=== PATIENT | female | born 1940 | race Caucasian/White ===

== ENCOUNTER 2016-08-09 13:09 | Emergency (ER) | payer MEDICARE ==
[2016-08-09 13:54] VITALS: TEMP 97.7
[2016-08-09] MEDS ORDERED: HYDROmorphone 1 MG/ML 1 ML SYRINGE IM STA (14:25)
[2016-08-09] MEDS ORDERED: ORPHENADRINE 30 MG/ML 2 ML VIAL IM STA (14:25)
--- NOTE | 2016-08-09 14:34 | ED ---
Back Pain HPI - General Chief Complaint: Back Pain/Injury Stated Complaint: Back Pain Time Seen by Provider: 08/09/16 14:08 Source: patient, RN notes reviewed Limitations: no limitations - History of Present Illness Initial Comments: Patient is a 75-year-old female presenting to the stating that she has chronic thoracic back pain. Patient reports that she woke up at 4 AM today and the pain was significantly worse. She states she's had an MRI done of 2015. The MRI revealed that she has a possible T9 compression fracture. She also has had surgery to correct T8 vertebral plasty and has evidence of anterior thecal sac inferior to T8 and T8 through T9 space. Patient states that there is no numbness or tingling to radiates down her legs. She states that the pain is worse with movement. She denies any saddle anesthesias. Patient denies any fever or chills. She states that she took her at home pain medication which is Tracy however has not helped with the pain. She states that she does follow up with Dr. De Paz and Dr. Daugherty in regards to pain management and further treatment for her back. Patient also denies any recent trauma or falls causing injury to her back. Patient patient reports that she is able to ambulate and was able to ambulate from the wheelchair to the bed today. Patient has a past medical history significant for type 2 diabetes. - Related Data Home Medications Medication Instructions Recorded Confirmed Insulin Aspart Protam & Aspart 20 unit SQ QAM 06/13/14 07/10/16 [NovoLOG MIX 70-30 Flexpen] Pioglitazone [Actos] 30 mg PO QAM 06/13/14 07/10/16 glipiZIDE XL [Glucotrol XL] 10 mg PO QAM 06/13/14 07/10/16 Ferrous Sulfate [Feosol] 325 mg PO DAILY 06/18/16 07/10/16 Metoprolol Tartrate [Lopressor] 50 mg PO BID 06/18/16 07/10/16 Cyclobenzaprine [Flexeril] 10 mg PO TID 07/10/16 07/10/16 Losartan/Hydrochlorothiazide 1 tab PO DAILY 07/10/16 07/10/16 [Hyzaar 100-25 Tablet] Torsemide [Demadex] 20 mg PO DAILY 07/10/16 07/10/16 Previous Rx's Medication Instructions Recorded Warfarin [Coumadin] 5 mg PO DAILY #0 07/11/16 traMADol HCL [Ultram] 50 mg PO Q6HR PRN #20 tab 07/11/16 Cyclobenzaprine [Flexeril] 10 mg PO TID #20 tab 08/09/16 HYDROcodone/APAP 10-325MG [Tracy 1 tab PO Q6H PRN #15 tab 08/09/16 10-325] Allergies Allergy/AdvReac Type Severity Reaction Status Date / Time tetracycline Allergy Unknown Verified 08/09/16 13:54 fentanyl AdvReac "SKIN Verified 08/09/16 13:54 CRAWLS", HYPER Review of Systems ROS Statement: Those systems with pertinent positive or pertinent negative responses have been documented in the HPI. ROS Other: All systems not noted in ROS Statement are negative. Past Medical History Past Medical History: Atrial Flutter, Chest Pain / Angina, Diabetes Mellitus, Hypertension Additional Past Medical History / Comment(s): POST OP INFECTION AFTER BACK SURGERY. UPPER BRIDGE, UTI COMPLETE ABX, CHRONIc BACK PAIN, FROM FX. PERIPHERAL LEG EDEMA.T8 FX History of Any Multi-Drug Resistant Organisms: None Reported Past Surgical History: Back Surgery, Cholecystectomy, Orthopedic Surgery Additional Past Surgical History / Comment(s): LUMBAR SURGERY, 2014. FX NOSE REPAIR. BILATERAL CATARACT SURGERY. R WRIST CARPAL TUNNEL SURGERY, kyphoplasty T8 ON 06/26/16. Past Anesthesia/Blood Transfusion Reactions: No Reported Reaction Additional Past Anesthesia/Blood Transfusion Reaction / Comment(s): NEVER HAD A BLOOD TRANSFUSION. Past Psychological History: No Psychological Hx Reported Additional Psychological History / Comment(s): PT LIVES ALONE IN A ONE FLOOR [place]. SHE IS INDEPENDENT. SHE DRIVES A CAR. Smoking Status: Never smoker Past Alcohol Use History: None Reported Past Drug Use History: None Reported - Past Family History Father Family Medical History: Myocardial Infarction ([place]) Additional Family Medical History / Comment(s): FATHER AT AGE 52 OF AN [place] Mother Additional Family Medical History / Comment(s): MOTHER AT AGE 89 OF CELEBREX PROBLEM. General Exam - General Exam Comments Initial Comments: Patient is a 75-year-old female in no apparent distress. She is laying in the bed. Limitations: no limitations General appearance: alert, in no apparent distress Head exam: Present: atraumatic, normocephalic, normal inspection Eye exam: Present: normal appearance, PERRL, EOMI. Absent: scleral icterus, conjunctival injection, periorbital swelling ENT exam: Present: normal exam, mucous membranes moist Neck exam: Present: normal inspection. Absent: tenderness, meningismus, lymphadenopathy Respiratory exam: Present: normal lung sounds bilaterally. Absent: respiratory distress, wheezes, rales, rhonchi, stridor Cardiovascular Exam: Present: regular rate, normal rhythm, normal heart sounds. Absent: systolic murmur, diastolic murmur, rubs, gallop, clicks GI/Abdominal exam: Present: soft, normal bowel sounds. Absent: distended, tenderness, guarding, rebound, rigid Extremities exam: Present: normal inspection, full ROM, normal capillary refill. Absent: tenderness, pedal edema, joint swelling, calf tenderness Back exam: Present: normal inspection. Absent: full ROM (Patient reports limited range of motion due to pain over her thoracic spine.), tenderness ( Patient denies a specific tenderness to palpation.) Neurological exam: Present: alert, oriented X3, CN II-XII intact Psychiatric exam: Present: normal affect, normal mood Skin exam: Present: warm, dry, intact, normal color. Absent: rash Course Vital Signs 08/09/16 08/09/16 13:52 15:20 Temperature 97.7 F Pulse Rate 64 63 Respiratory 20 18 Rate Blood Pressure 153/64 146/71 O2 Sat by Pulse 97 98 Oximetry Medical Decision Making - Medical Decision Making Given the patient recently had an MRI of the thoracic spine [place] no other imaging studies today. She denies any acute trauma that could cause changes in her MRI studies. She reports that she does have chronic back pain and seemed to be exacerbated today at 4 AM. She reports she took her at home pain medications. Patient was given IM Dilaudid and Norflex. She reports a significant reduction in her pain at this time. She reports that she was able to drive home. Patient was given a half hour waiting time until she was allowed to drive home. I instructed the patient to increase her pain medication to 10 mg every 4 hours as needed. Patient also be given a prescription for Flexeril. Patient will be instructed to follow-up with Dr. De Paz in regards to pain. - Radiology Data Radiology results: report reviewed MRI of the thoracic spine on 12:30 reveals into her old vertebral plasty T level with persistent effacement of the anterior thecal sac inferior T8 and T8- T9 disc space level noted. There is developing mild compression type fracture at T9 level suspected. 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 There is new abnormal diffuse low T1 and heterogeneous T2 signal in the adjacent T9 vertebral or some for developing compression fracture. New mild height loss is felt to be present. There is small residual disc herniation at T8/T9 level facing the anterior thecal sac and sagittal images #6. Some scattered hemangiomas noted on posterior T6 vertebra and posterior T12 vertebra. Review ask seal images redemonstrates tiny central disc herniation minimally facing the anterior thecal sac. Axial images at T8 level showed artifact from vertebral press E. There is mild effacement of the anterior thecal sac at T12/L1 level due to broad-based central disc protrusion seen on axial image foreign sagittal images #6. His MRI was read by Dr. De Paz. The findings were forwarded to Dr. Baldev Parmar. Disposition Clinical Impression: Chronic back pain Disposition: HOME SELF-CARE Condition: Good Instructions: Chronic Back Pain (ED) Additional Instructions: Increased pain medication to the 2 pills every 4 hours as needed. Patient also instructed to use muscle relaxer medication as directed. Follow-up with primary care physician in one to 2 days. Follow-up with pain management orthopedic physician as directed. Return to the [facility] if any alarming signs or symptoms occur. Prescriptions: Cyclobenzaprine [Flexeril] 10 mg PO TID #20 tab HYDROcodone/APAP 10-325MG [Tracy 10-325] 1 tab PO Q6H PRN #15 tab PRN Reason: Pain Referrals: Rox Parmar DO [Primary Care Provider] - 1-2 days Time of Disposition: 14:58
[2016-08-09 15:20] VITALS: BP 146/71; PULSE 63; RESP 18
== END 2016-08-09 15:20 | disposition home or self-care (01) ==
LOC: EC 13:09
DX: G89.29 Other chronic pain (principal); M54.9 Dorsalgia, unspecified; I48.92 Unspecified atrial flutter; I10 Essential (primary) hypertension; E11.8 Type 2 diabetes mellitus with unspecified complications; Z79.84 Long term (current) use of oral hypoglycemic drugs; Z79.899 Other long term (current) drug therapy; Z79.4 Long term (current) use of insulin; Z79.01 Long term (current) use of anticoagulants; Z88.1 Allergy status to other antibiotic agents
CPT/HCPCS: 99282; 96372; J2360; J1170

== ENCOUNTER → 2016-08-13 | Outpatient (CLI) | payer MEDICARE ==
[2016-08-13 12:25] LABS: Basophils % (A) 1 %; CH 30.6; CHCM 30.9; Eosinophils # (A) 0.1 k/uL (0-0.7); Eosinophils % (A) 2 %; HDW 2.79; HGB 12.2 gm/dL (11.4-16.0); Hypochromasia Moderate; Luc # (Auto) 0.09; Luc % (Auto) 2; Lymphocytes # (A) 0.7 k/uL (1.0-4.8); Lymphocytes % (A) 12 %; MCH 30.5 pg (25.0-35.0); MCHC 30.6 g/dL (31.0-37.0); MCV 99.9 fL (80.0-100.0); Macrocytosis Slight; Monocytes # (A) 0.3 k/uL (0-1.0); Monocytes % (A) 5 %; Neutrophils # (A) 4.8 k/uL (1.3-7.7); Neutrophils % (A) 79 %; RBC 4.01 m/uL (3.80-5.40); RDW 14.6 % (11.5-15.5); WBC 6.1 k/uL (3.8-10.6); WBC (Perox) 6.31
[2016-08-13 12:27] LABS: Appearance,Urine Clear (Clear); Bilirubin,Urine Negative (Negative); Calcium Oxalate Crystals,Urine Rare /hpf; Glucose,Urine (UA) Negative (Negative); Ketones,Urine Negative (Negative); Leukocyte Esterase,Urine Small (Negative); Mucus,Urine Few /hpf; Nitrite,Urine Negative (Negative); PH, Urine 5.5 (5.0-8.0); Particle Count 10686; Protein,Urine 2+ (Negative); RBC,Urine 9 /hpf (0-5); Specific Gravity,Urine 1.035 (1.001-1.035); Squamous Epithelial Cell,Urine 4 /hpf (0-4); UA Billing (MACRO vs. MICRO) MICRO; WBC,Urine 4 /hpf (0-5)
[2016-08-13 12:31] LABS: Partial Thromboplastin Time 38.5 sec (22.0-30.0); Prothrombin Time 46.8 sec (9.0-12.0)
[2016-08-13 12:37] LABS: INR 4.7 (<1.1)
[2016-08-13 12:49] LABS: ALT 32 U/L (9-52); AST 21 U/L (14-36); Alkaline Phosphatase 118 U/L (38-126); Anion Gap 13 mmol/L; Blood Urea Nitrogen 12 mg/dL (7-17); Calcium 9.7 mg/dL (8.4-10.2); Carbon Dioxide 24 mmol/L (22-30); Chloride 110 mmol/L (98-107); Glucose 61 mg/dL (74-99); Non-African American GFR(MDRD) >60 (>60 ml/min/1.73 sqM); Potassium 4.4 mmol/L (3.5-5.1); Sodium 147 mmol/L (137-145); Total Bilirubin 0.7 mg/dL (0.2-1.3); Total Protein 6.9 g/dL (6.3-8.2)
== END | disposition home or self-care (01) ==
LOC: LABPAT 10:50
PROVIDERS: ATTEND Orthopaedic Surgery Orthopaedic Surgery of the Spine
DX: Z01.812 Encounter for preprocedural laboratory examination (principal)
CPT/HCPCS: 80053; 81001; 85025; 85610; 85730; 86850; 86900; 86901

== ENCOUNTER 2016-08-14 04:26 | Observation (INO) | payer MEDICARE ==
[2016-08-14] MEDS ORDERED: SODIUM CHLORIDE 0.9% 1,000 ML IV STA (04:39)
[2016-08-14] MEDS ORDERED: ORPHENADRINE 30 MG/ML 2 ML VIAL IVP STA (04:40)
[2016-08-14] MEDS ORDERED: HYDROmorphone 1 MG/ML 1 ML SYRINGE IVP STA (04:40)
--- NOTE | 2016-08-14 04:43 | ED ---
General Adult HPI - General Chief complaint: Back Pain/Injury Stated complaint: Back pain Time Seen by Provider: 08/14/16 04:31 Source: patient, RN notes reviewed Mode of arrival: ambulatory Limitations: physical limitation - History of Present Illness Initial comments: Patient is a pleasant 75-year-old female presenting to the emergency Department with back discomfort. Onset of symptoms was over a month ago. Patient has chronic pain. Patient was supposed to have surgery today however blood work yesterday revealed her INR was too high. Patient was recently in the emergency department and did get relief with pain medications. Patient also states there is left-sided chest discomfort. Patient went to resist to her back pain. Patient states this is associated with her back pain and worse when her back gets worse. Patient has had an MRI done with compression fracture. No dyspnea. No leg pain. - Related Data Home Medications Medication Instructions Recorded Confirmed Insulin Aspart Protam & Aspart 20 unit SQ QAM 06/13/14 07/10/16 [NovoLOG MIX 70-30 Flexpen] Pioglitazone [Actos] 30 mg PO QAM 06/13/14 07/10/16 glipiZIDE XL [Glucotrol XL] 10 mg PO QAM 06/13/14 07/10/16 Ferrous Sulfate [Feosol] 325 mg PO DAILY 06/18/16 07/10/16 Metoprolol Tartrate [Lopressor] 50 mg PO BID 06/18/16 07/10/16 Cyclobenzaprine [Flexeril] 10 mg PO TID 07/10/16 07/10/16 Losartan/Hydrochlorothiazide 1 tab PO DAILY 07/10/16 07/10/16 [Hyzaar 100-25 Tablet] Torsemide [Demadex] 20 mg PO DAILY 07/10/16 07/10/16 Previous Rx's Medication Instructions Recorded Warfarin [Coumadin] 5 mg PO DAILY #0 07/11/16 traMADol HCL [Ultram] 50 mg PO Q6HR PRN #20 tab 07/11/16 Cyclobenzaprine [Flexeril] 10 mg PO TID #20 tab 08/09/16 HYDROcodone/APAP 10-325MG [Gary 1 tab PO Q6H PRN #15 tab 08/09/16 10-325] Allergies Allergy/AdvReac Type Severity Reaction Status Date / Time tetracycline Allergy Unknown Verified 08/09/16 13:54 fentanyl AdvReac "SKIN Verified 08/09/16 13:54 CRAWLS", HYPER Review of Systems ROS Statement: Those systems with pertinent positive or pertinent negative responses have been documented in the HPI. ROS Other: All systems not noted in ROS Statement are negative. Constitutional: Denies: fever Eyes: Denies: eye pain ENT: Denies: ear pain Respiratory: Denies: dyspnea Cardiovascular: Reports: chest pain Endocrine: Denies: fatigue Gastrointestinal: Denies: abdominal pain Genitourinary: Denies: dysuria Musculoskeletal: Reports: back pain Skin: Denies: rash Neurological: Denies: weakness Past Medical History Past Medical History: Atrial Flutter, Chest Pain / Angina, Diabetes Mellitus, Hypertension Additional Past Medical History / Comment(s): POST OP INFECTION AFTER BACK SURGERY. UPPER BRIDGE, UTI COMPLETE ABX, CHRONIc BACK PAIN, FROM FX. PERIPHERAL LEG EDEMA.T8 FX History of Any Multi-Drug Resistant Organisms: None Reported Past Surgical History: Back Surgery, Cholecystectomy, Orthopedic Surgery Additional Past Surgical History / Comment(s): LUMBAR SURGERY, 2015. FX NOSE REPAIR. BILATERAL CATARACT SURGERY. R WRIST CARPAL TUNNEL SURGERY, kyphoplasty T8 ON 06/26/16. Past Anesthesia/Blood Transfusion Reactions: No Reported Reaction Additional Past Anesthesia/Blood Transfusion Reaction / Comment(s): NEVER HAD A BLOOD TRANSFUSION. Past Psychological History: No Psychological Hx Reported Additional Psychological History / Comment(s): PT LIVES ALONE IN A [place] FLOOR [place]. SHE IS INDEPENDENT. SHE DRIVES A CAR. Smoking Status: Never smoker Past Alcohol Use History: None Reported Past Drug Use History: None Reported - Past Family History Father Family Medical History: Myocardial Infarction ([place]) Additional Family Medical History / Comment(s): FATHER AT AGE 52 OF AN [place] Mother Additional Family Medical History / Comment(s): MOTHER AT AGE 89 OF CELEBREX PROBLEM. General Exam Limitations: physical limitation General appearance: alert, other (Patient does have spasms and appears uncomfortable) Head exam: Present: atraumatic Eye exam: Present: normal appearance, PERRL ENT exam: Present: normal oropharynx Neck exam: Present: normal inspection Respiratory exam: Present: normal lung sounds bilaterally. Absent: chest wall tenderness Cardiovascular Exam: Present: regular rate, normal rhythm GI/Abdominal exam: Present: soft. Absent: tenderness Extremities exam: Absent: calf tenderness Back exam: Present: tenderness (Mild tenderness in the T8- T9 region) Neurological exam: Present: alert. Absent: motor sensory deficit Psychiatric exam: Present: normal affect, normal mood Skin exam: Absent: rash Course Vital Signs 08/14/16 04:33 Temperature 98.1 F Pulse Rate 81 Respiratory 20 Rate Blood Pressure 198/93 O2 Sat by Pulse 97 Oximetry EKG Findings - EKG Comments: EKG Findings:: Normal sinus rhythm 71. NH 174. QRS 86. QT 436. QTc 473. Normal axis. Normal QRS. Normal ST-T. Medical Decision Making - Medical Decision Making Patient reexamined and improved. Patient resting comfortably in bed. Patient states she does not feel comfortable going home and wants her back taking care of. Case discussed with practitioner reading coach, who will admit for Dr. Dietrich, covering for Dr. Holt. Dr. De Paz will be placed on consult. - Lab Data Result diagrams: 08/14/16 04:35 08/14/16 04:35 Lab Results 08/14/16 08/14/16 08/14/16 Range/Units 04:35 04:35 04:35 WBC 6.7 (3.8-10.6) k/uL RBC 4.03 (3.80-5.40) m/uL Hgb 12.3 (11.4-16.0) gm/dL Hct 39.1 (34.0-46.0) % MCV 97.2 (80.0-100.0) fL MCH 30.4 (25.0-35.0) pg MCHC 31.3 (31.0-37.0) g/dL RDW 14.3 (11.5-15.5) % Plt Count 249 (150-450) k/uL Neutrophils % 72 % Lymphocytes % 17 % Monocytes % 6 % Eosinophils % 3 % Basophils % 0 % Neutrophils # 4.8 (1.3-7.7) k/uL Lymphocytes # 1.2 (1.0-4.8) k/uL Monocytes # 0.4 (0-1.0) k/uL Eosinophils # 0.2 (0-0.7) k/uL Basophils # 0.0 (0-0.2) k/uL Hypochromasia Slight PT (9.0-12.0) sec INR (<1.1) APTT (22.0-30.0) sec Sodium 147 H (137-145) mmol/L Potassium 4.2 (3.5-5.1) mmol/L Chloride 111 H (98-107) mmol/L Carbon Dioxide 22 (22-30) mmol/L Anion Gap 14 mmol/L BUN 13 (7-17) mg/dL Creatinine 0.91 (0.52-1.04) mg/dL Est GFR (MDRD) Af Amer >60 (>60 ml/min/1.73 sqM) Est GFR (MDRD) Non-Af >60 (>60 ml/min/1.73 sqM) Glucose 124 H (74-99) mg/dL Calcium 9.7 (8.4-10.2) mg/dL Magnesium 1.8 (1.6-2.3) mg/dL Total Bilirubin 0.9 (0.2-1.3) mg/dL AST 19 (14-36) U/L ALT 28 (9-52) U/L Alkaline Phosphatase 131 H (38-126) U/L Total Creatine Kinase 40 (30-135) U/L CK-MB (CK-2) 0.3 (0.0-2.4) ng/mL CK-MB (CK-2) Rel Index 0.8 Troponin I 0.012 (0.000-0.034) ng/mL Total Protein 7.4 (6.3-8.2) g/dL Albumin 4.4 (3.5-5.0) g/dL 08/14/16 Range/Units 04:35 WBC (3.8-10.6) k/uL RBC (3.80-5.40) m/uL Hgb (11.4-16.0) gm/dL Hct (34.0-46.0) % MCV (80.0-100.0) fL MCH (25.0-35.0) pg MCHC (31.0-37.0) g/dL RDW (11.5-15.5) % Plt Count (150-450) k/uL Neutrophils % % Lymphocytes % % Monocytes % % Eosinophils % % Basophils % % Neutrophils # (1.3-7.7) k/uL Lymphocytes # (1.0-4.8) k/uL Monocytes # (0-1.0) k/uL Eosinophils # (0-0.7) k/uL Basophils # (0-0.2) k/uL Hypochromasia PT 30.9 H (9.0-12.0) sec INR 3.2 (<1.1) APTT 35.1 H (22.0-30.0) sec Sodium (137-145) mmol/L Potassium (3.5-5.1) mmol/L Chloride (98-107) mmol/L Carbon Dioxide (22-30) mmol/L Anion Gap mmol/L BUN (7-17) mg/dL Creatinine (0.52-1.04) mg/dL Est GFR (MDRD) Af Amer (>60 ml/min/1.73 sqM) Est GFR (MDRD) Non-Af (>60 ml/min/1.73 sqM) Glucose (74-99) mg/dL Calcium (8.4-10.2) mg/dL Magnesium (1.6-2.3) mg/dL Total Bilirubin (0.2-1.3) mg/dL AST (14-36) U/L ALT (9-52) U/L Alkaline Phosphatase (38-126) U/L Total Creatine Kinase (30-135) U/L CK-MB (CK-2) (0.0-2.4) ng/mL CK-MB (CK-2) Rel Index Troponin I (0.000-0.034) ng/mL Total Protein (6.3-8.2) g/dL Albumin (3.5-5.0) g/dL - Radiology Data Radiology results: image reviewed (Chest x-ray shows no acute process) Disposition Clinical Impression: Chest pain, Severe back pain Disposition: ADMITTED IP TO THIS HOSP
[2016-08-14 04:48] LABS: Basophils % (A) 0 %; CH 30.4; CHCM 31.5; Eosinophils # (A) 0.2 k/uL (0-0.7); Eosinophils % (A) 3 %; HCT 39.1 % (34.0-46.0); HDW 2.76; HGB 12.3 gm/dL (11.4-16.0); Hypochromasia Slight; Luc # (Auto) 0.14; Luc % (Auto) 2; Lymphocytes # (A) 1.2 k/uL (1.0-4.8); Lymphocytes % (A) 17 %; MCH 30.4 pg (25.0-35.0); MCHC 31.3 g/dL (31.0-37.0); MCV 97.2 fL (80.0-100.0); Mean Platelet Volume 7.1; Monocytes # (A) 0.4 k/uL (0-1.0); Monocytes % (A) 6 %; Neutrophils # (A) 4.8 k/uL (1.3-7.7); Neutrophils % (A) 72 %; RBC 4.03 m/uL (3.80-5.40); RDW 14.3 % (11.5-15.5); WBC 6.7 k/uL (3.8-10.6)
[2016-08-14 04:58] LABS: INR 3.2 (<1.1); Partial Thromboplastin Time 35.1 sec (22.0-30.0); Prothrombin Time 30.9 sec (9.0-12.0)
[2016-08-14 05:10] LABS: ALT 28 U/L (9-52); AST 19 U/L (14-36); Alkaline Phosphatase 131 U/L (38-126); Anion Gap 14 mmol/L; Blood Urea Nitrogen 13 mg/dL (7-17); Calcium 9.7 mg/dL (8.4-10.2); Carbon Dioxide 22 mmol/L (22-30); Chloride 111 mmol/L (98-107); Glucose 124 mg/dL (74-99); Magnesium 1.8 mg/dL (1.6-2.3); Non-African American GFR(MDRD) >60 (>60 ml/min/1.73 sqM); Potassium 4.2 mmol/L (3.5-5.1); Sodium 147 mmol/L (137-145); Total Bilirubin 0.9 mg/dL (0.2-1.3); Total Protein 7.4 g/dL (6.3-8.2)
[2016-08-14 05:20] LABS: Creatine Kinase MB 0.3 ng/mL (0.0-2.4); Troponin I 0.012 ng/mL (0.000-0.034)
--- NOTE | 2016-08-14 05:24 | XR ---
EXAMINATION TYPE: XR chest 1V portable DATE OF EXAM: 08/14/2016 5:10 AM COMPARISON: 06/21/2016 HISTORY: Chest pain and muscle spasms TECHNIQUE: Single frontal view of the chest is obtained. FINDINGS: There is suggestion of chronic mild interstitial lung changes bilaterally. There is no focal pneumonia, pleural effusion, or pneumothorax seen. There is mild cardiomegaly.. T he osseous structures are intact. IMPRESSION: 1. Chronic lung changes are suggested. 2. No focal pneumonia.
[2016-08-14] MEDS ORDERED: NITROGLYCERIN SL TABS 0.4 MG TAB SUBLINGUAL PRN (05:29)
--- NOTE | 2016-08-14 08:17 | P.CRDCN ---
History of Present Illness Consult date: 08/14/16 Chief complaint: Chest pain/back pain History of present illness: This is a pleasant 75-year-old female patient with a past medical history significant for paroxysmal atrial fibrillation, diabetes, and hypertension, presented to the hospital complaining of back pain. The patient was a scheduled to undergo back surgery yesterday but her INR was supra therapeutic and the surgery was canceled. We get involved in her case because she was describing atypical chest discomfort in addition to the back discomfort. But she states clearly that her discomfort is coming from the back. On physical examination she has reproducible chest discomfort. The EKG showed sinus rhythm without significant ST or T-wave abnormalities. We have only one set of cardiac enzymes came in to be unremarkable. The patient symptoms are very atypical and she has reproducible chest pain. I will wait for the second set of cardiac enzymes. Past Medical History Past Medical History: Atrial Flutter, Chest Pain / Angina, Diabetes Mellitus, Hypertension Additional Past Medical History / Comment(s): POST OP INFECTION AFTER BACK SURGERY. UPPER BRIDGE, UTI COMPLETE ABX, CHRONIc BACK PAIN, FROM FX. PERIPHERAL LEG EDEMA.T8 FX History of Any Multi-Drug Resistant Organisms: None Reported Past Surgical History: Back Surgery, Cholecystectomy, Orthopedic Surgery Additional Past Surgical History / Comment(s): LUMBAR SURGERY, 2014. FX NOSE REPAIR. BILATERAL CATARACT SURGERY. R WRIST CARPAL TUNNEL SURGERY, kyphoplasty T8 ON 06/26/16. Past Anesthesia/Blood Transfusion Reactions: No Reported Reaction Additional Past Anesthesia/Blood Transfusion Reaction / Comment(s): NEVER HAD A BLOOD TRANSFUSION. Past Psychological History: No Psychological Hx Reported Additional Psychological History / Comment(s): PT LIVES ALONE IN A [place] FLOOR [place]. SHE IS INDEPENDENT. SHE DRIVES A CAR. Smoking Status: Never smoker Past Alcohol Use History: None Reported Past Drug Use History: None Reported - Past Family History Father Family Medical History: Myocardial Infarction ([place]) Additional Family Medical History / Comment(s): FATHER AT AGE 52 OF AN [place] Mother Additional Family Medical History / Comment(s): MOTHER AT AGE 89 OF CELEBREX PROBLEM. Medications and Allergies Home Medications Medication Instructions Recorded Confirmed Type Insulin Aspart Protam & Aspart 20 unit SQ QAM 06/13/14 08/14/16 History [NovoLOG MIX 70-30 Flexpen] Pioglitazone [Actos] 30 mg PO QAM 06/13/14 08/14/16 History glipiZIDE XL [Glucotrol XL] 10 mg PO QAM 06/13/14 08/14/16 History Ferrous Sulfate [Feosol] 325 mg PO DAILY 06/18/16 07/10/16 History Metoprolol Tartrate [Lopressor] 50 mg PO BID 06/18/16 08/14/16 History Cyclobenzaprine [Flexeril] 10 mg PO TID 07/10/16 07/10/16 History Losartan/Hydrochlorothiazide 1 tab PO DAILY 07/10/16 08/14/16 History [Hyzaar 100-25 Tablet] Torsemide [Demadex] 20 mg PO DAILY 07/10/16 08/14/16 History Allergies Allergy/AdvReac Type Severity Reaction Status Date / Time tetracycline Allergy Unknown Verified 08/09/16 13:54 fentanyl AdvReac "SKIN Verified 08/09/16 13:54 CRAWLS", HYPER Physical Exam Vitals: Vital Signs Temp Pulse Pulse Resp BP BP Pulse Ox 08/14/16 07:44 98.1 F 77 16 147/60 96 08/14/16 06:41 70 16 08/14/16 06:36 98.1 F 75 16 166/68 98 08/14/16 06:11 16 158/79 97 - Constitutional General appearance: no acute distress - Respiratory Respiratory: bilateral: CTA - Cardiovascular Rhythm: regular Heart sounds: normal: S1, S2 Results 08/14/16 04:35 08/14/16 04:35 Current Medications Generic Name Dose Route Start Last Admin Trade Name Freq PRN Reason Stop Dose Admin Hydromorphone HCl 1 mg 08/14/16 05:30 Dilaudid IVP Q4HR PRN Pain Sodium Chloride 1,000 mls @ 75 mls/hr 08/14/16 04:39 08/14/16 04:50 Saline 0.9% IV 08/14/16 17:58 75 mls/hr .[id number] STA Administration Nitroglycerin 0.4 mg 08/14/16 05:29 Nitrostat SUBLINGUAL Q5M PRN Chest Pain Sodium Chloride 10 ml 08/14/16 09:00 Saline Flush IV BID YOSSI Assessment and Plan Plan: Assessment #1 atypical and reproducible chest pain #2 chronic back pain #3 paroxysmal H of fibrillation #4 hypertension Plan #1 the patient symptoms are atypical #2 we'll wait for the serial cardiac enzymes #3 follow-up with the patient
[2016-08-14] MEDS: HYDROmorphone 1 MG/ML 1 ML SYRINGE IVP PRN ×3 (08:34→19:30)
[2016-08-14 08:42] LABS: Glucose,Whole Blood 117 mg/dL (75-99)
[2016-08-14] MEDS: HYDROcodone/APAP 10-325MG 1 EACH TAB PO PRN ×3 (10:06→23:24)
--- NOTE | 2016-08-14 10:28 | P.CNOR ---
<Silver Calvillo - Last Filed: 08/14/16 10:09> History of Present Illness - [facility] Consult date: 08/14/16 Requesting physician: Jigar Nieto Consult reason: fracture (Acute T9 compression fracture), back pain (Thoracic back pain) History of present illness: Patient is a very pleasant well known 75-year-old female who is seen and examined at the bedside for further evaluation for significant ongoing thoracic back pain. Patient is seen and examined at the bedside by myself and Dr. Rex De Paz. She's was recently seen in our office on 08/12/2016 for her thoracic back pain. She is known to have an acute T9 compression fracture. Previously she had a T8 compression fracture and underwent a T8 kyphoplasty with biopsy. Upon presentation further examination in our office 08/12/2016, we had scheduled for her to undergo a T9 kyphoplasty with biopsy today, 08/14/2016. Yesterday her INR was 4.7 and we had to cancel her scheduled surgical intervention. Patient was unable to tolerate her pain at home and presented to the emergency department approximately 4:30 AM today, 08/14/2016. Patient states she continues to have significant sharp shooting pains in her mid thoracic spine. She is unable to perform regular activities of daily living without significant exacerbation of pain. She states she has difficulty reaching for objects, sitting, standing, ambulating, and eating due to her pain. Her pain wakes her up at night. She was unable to control her pain with oral medication so she presented to the emergency department. She is not currently experiencing any significant pain in the lower extremities bilaterally. She is not currently complaining of lower extremity weakness. Previously we tried bracing for her compression fractures but she was unable to tolerate the brace and was not receiving any relief of her symptoms while wearing the brace. Outpatient, she has been taking [place] 10 mg/325 mg and Flexeril 10 mg without significant relief of her symptoms. She states she cannot continue with her current current pain and would like to undergo a kyphoplasty as soon as possible. At presentation to the emergency department she states she was also experiencing significant chest pain that took her breath away. He states she had difficulty breathing due to her pain. She has been seen and examined by Dr. Carrillo in cardiology. He states she has atypical and reproducible chest pain. She is currently waiting for serial cardiac enzymes lab results and will follow up accordingly. She does have a past medical history including atrial fibrillation, diabetes, and hypertension. Past Medical History Past Medical History: Atrial Flutter, Chest Pain / Angina, Diabetes Mellitus, Hypertension Additional Past Medical History / Comment(s): IDDM type II, CHRONIc BACK PAIN, T8 compression fx with kyphoplasty, UTIs, chronic lower leg bilateral EDEMA, lumbar sx with post op infection, DJD. History of Any Multi-Drug Resistant Organisms: None Reported Past Surgical History: Back Surgery, Cholecystectomy, Orthopedic Surgery Additional Past Surgical History / Comment(s): LUMBAR SURGERY, 2015. FX NOSE REPAIR. BILATERAL CATARACT SURGERY. R WRIST CARPAL TUNNEL SURGERY, kyphoplasty T8 ON 06/26/16. Past Anesthesia/Blood Transfusion Reactions: No Reported Reaction Additional Past Anesthesia/Blood Transfusion Reaction / Comm: NEVER HAD A BLOOD TRANSFUSION. Past Psychological History: No Psychological Hx Reported Additional Psychological History / Comment(s): PT LIVES ALONE IN A [place] FLOOR [place]. SHE IS INDEPENDENT. SHE DRIVES A CAR. Smoking Status: Never smoker Past Alcohol Use History: None Reported Past Drug Use History: None Reported - Past Family History Father Family Medical History: Myocardial Infarction ([place]) Additional Family Medical History / Comment(s): FATHER AT AGE 52 OF AN [place] Mother Additional Family Medical History / Comment(s): MOTHER AT AGE 89 OF CELEBREX PROBLEM. Medications and Allergies Home Medications Medication Instructions Recorded Confirmed Type Insulin Aspart Protam & Aspart 20 unit SQ QAM 06/13/14 08/14/16 History [NovoLOG MIX 70-30 Flexpen] Pioglitazone [Actos] 30 mg PO QAM 06/13/14 08/14/16 History glipiZIDE XL [Glucotrol XL] 10 mg PO QAM 06/13/14 08/14/16 History Ferrous Sulfate [Feosol] 325 mg PO DAILY 06/18/16 08/14/16 History Metoprolol Tartrate [Lopressor] 50 mg PO BID 06/18/16 08/14/16 History Cyclobenzaprine [Flexeril] 10 mg PO TID 07/10/16 08/14/16 History Losartan/Hydrochlorothiazide 1 tab PO DAILY 07/10/16 08/14/16 History [Hyzaar 100-25 Tablet] Torsemide [Demadex] 20 mg PO DAILY 07/10/16 08/14/16 History Allergies Allergy/AdvReac Type Severity Reaction Status Date / Time tetracycline Allergy Unknown Verified 08/09/16 13:54 fentanyl AdvReac "SKIN Verified 08/09/16 13:54 CRAWLS", HYPER Physical Examination Physical exam: Patient is awake, alert, and oriented 3 Vital signs stable Good chest excursion with deep inspiration and expiration Abdomen soft nontender Examination of thoracolumbar is not performed as patient has significant exacerbation of thoracic back pain with any movement of the thoracolumbar spine Patient is unable to turn over in bed due to thoracic back pain Dorsiflexion, plantarflexion, and extensor hallucis longus positive sustained bilaterally Lower extremity strength 5/5 bilaterally Patient is able to move legs independently without significant difficulty bilaterally No signs or symptoms of DVT; no calf pain; calves soft to palpation No pain with internal and external rotation of the hips bilaterally Neurovascularly intact Results - Labs Labs: Abnormal Lab Results - Last 24 Hours (Table) 08/14/16 Range/Units 08:39 POC Glucose (mg/dL) 117 H (75-99) mg/dL Result Diagrams: 08/14/16 04:35 08/14/16 04:35 Assessment and Plan (1) Acute thoracic back pain Status: Acute (2) Wedge compression fracture of T9 vertebra Status: Acute (3) Hx of kyphoplasty Status: Acute (4) Atypical chest pain Status: Acute (5) History of atrial fibrillation Status: Acute (6) Hypertension Status: Acute (7) Diabetes Status: Acute Plan: Assessment: Known acute T9 compression fracture deformity Severe, debilitating Thoracic back pain T8 previous vertebral body compression fracture with subsequent T8 kyphoplasty with biopsy Atypical and reproducible chest pain History of atrial fibrillation Diabetes Hypertension Plan: 1. Given the patient's significant and worsening thoracic back pain, evidence of T9 vertebral body compression fracture, and her inability to control her pain at home, we will currently plan to try to proceed forward with surgical intervention once her INR is therapeutic range. Nursing states she has not taken Coumadin since 08/11/2016. Her INR yesterday, 08/13/2016, was 4.7. This morning her INR has been reduced to 3.2. We will continue to hold her Coumadin and we'll continue to follow the patient. We will order repeat PT/ INR lab draws in the morning. If she is able to have her Coumadin reduced to a therapeutic level, we will plan for T9 kyphoplasty with biopsy as early as tomorrow, 08/15/2016. We will also plan to order a urinary analysis. She will become nothing by mouth status start midnight, 08/15/2016, in anticipation for surgical intervention. 2. Dr. Carrillo in Cardiology will continue following the patient for further evaluation and treatment regards to her chest pain 3. Dr. Dietrich in medicine will continue following the patient for her other medical diagnoses; patient currently observation status and will most likely need to be converted to inpatient 4. We'll continue to follow patient closely 5. We will tentatively plan for surgical intervention of T9 kyphoplasty with biopsy tomorrow, 08/15/2016, if the patient's INR is able to be reduced to an appropriate therapeutic range. 6. Patient has been seen and examined by myself and Dr. Rex De Paz. He agrees with this plan Time with Patient: Greater than 30 <Conchita De Paz - Last Filed: 08/14/16 10:35> Physical Examination Osteopathic Statement: *. No significant issues noted on an osteopathic structural exam other than those noted in the History and Physical/Consult. Results - Labs Labs: Abnormal Lab Results - Last 24 Hours (Table) 08/14/16 Range/Units 08:39 POC Glucose (mg/dL) 117 H (75-99) mg/dL Result Diagrams: 08/14/16 04:35 08/14/16 04:35 Assessment and Plan Plan: Patient is seen and examined today at bedside. She is well known to our service and we have been trying to manage her pain as an outpatient regards to her spinal conditions. She had a previous T8 compression fracture which she underwent kyphoplasty and did fairly well for a few days but then had recurrence of her symptoms. She continues to have severe symptoms through her back and radiating toward her chest. This does not seem to be cardiac in origin but I think the workup is appropriate. We had discussed with her the possibility of conservative treatment versus the possibility of surgical intervention with kyphoplasty at T9. We discussed the different risks, occasions alternatives and benefits. She understands that the pain may not be solely stemming from the fracture at T9 but that this may be a contributing fracture to her continued significant pain at her thoracic back pain. I think a kyphoplasty is appropriate for her I discussed the risk of occasions alternatives and benefits and she is agreeable to proceed. We try to schedule this case for today as an outpatient when we saw her however her INR is significantly high. It has come down hole point since yesterday and if he continues to come down below 2 think she could be appropriate for kyphoplasty tomorrow. We'll recheck her INR levels in the a.m. and make her nothing by mouth after midnight for possible T9 kyphoplasty tomorrow in the operating room.
[2016-08-14] MEDS ORDERED: PHYTONADIONE ORAL 5 MG/5 ML ORAL.SYRG PO STA (12:02)
[2016-08-14] MEDS ORDERED: traMADol 50 MG TAB PO PRN (12:03)
[2016-08-14] MEDS ORDERED: KETOROLAC 30 MG/ML 1 ML VIAL IVP PRN (12:05)
[2016-08-14 12:14] LABS: Creatine Kinase 31 U/L (30-135)
[2016-08-14] MEDS ORDERED: SODIUM CHLORIDE 0.45% 1,000 ML IV SCH (12:15)
[2016-08-14] MEDS ORDERED: LACTATED RINGERS 1,000 ML IV SCH (12:15)
[2016-08-14 12:27] LABS: Creatine Kinase MB <0.2 ng/mL (0.0-2.4); Troponin I 0.013 ng/mL (0.000-0.034)
[2016-08-14] MEDS: CYCLOBENZAPRINE 10 MG TAB PO SCH ×2 (15:28→21:21)
[2016-08-14] MEDS ORDERED: CYCLOBENZAPRINE 10 MG TAB PO SCH (16:00)
[2016-08-14 17:05] LABS: Creatine Kinase 32 U/L (30-135)
[2016-08-14 17:18] LABS: Creatine Kinase MB <0.2 ng/mL (0.0-2.4); Troponin I 0.014 ng/mL (0.000-0.034)
[2016-08-14 17:44] LABS: Glucose,Whole Blood 89 mg/dL (75-99)
[2016-08-14] MEDS: INSULIN LISPRO (humaLOG) 300 UNIT/3 ML VIAL SQ SCH ×2 (18:00→21:12)
[2016-08-14] MEDS ORDERED: ONDANSETRON 4 MG/2 ML VIAL IVP PRN (19:43)
[2016-08-14] MEDS ORDERED: LIDOCAINE 1% 20 ML VIAL (10MG/ML) FOR IV START INTRADERMA PRN (19:43)
[2016-08-14] MEDS ORDERED: FAMOTIDINE 20 MG/2 ML VIAL IV PRN (19:43)
[2016-08-14] MEDS: LACTATED RINGERS 1,000 ML IV SCH (20:10)
[2016-08-14 20:42] LABS: Glucose,Whole Blood 122 mg/dL (75-99)
[2016-08-14] MEDS: METOPROLOL TARTRATE 50 MG TAB PO SCH (21:21)
--- NOTE | 2016-08-14 21:52 | HP ---
Patient is a pleasant 75-year-old who came in with complaints of ongoing thoracic pain and patient has complaints of pain going through the chest for which Cardiology was consulted, although the patient's chest pain is atypical for cardiac pain. Patient has a T9 compression fracture. She is known to have a T9 compression fracture. Patient had a T8 compression fracture in the past for which patient underwent kyphoplasty. Patient was scheduled to get T9 compression kyphoplasty yesterday, but because of elevated INR patient, they were unable to do the test. Patient appears to have atrial fibrillation. Patient appears to be on and Coumadin and elevated INR. I am giving her vitamin K. Patient is scheduled to go for spinal surgery tomorrow because of her uncontrolled pain symptoms. At this point of time, the pain symptoms are well controlled because of Dilaudid. I started her on DVT prophylaxis along with Ketorolac. The patient was complaining of neuropathic symptoms radiating to the end of the chest, around the chest and abdominal area. Patient denied any fever, chills, cough, runny nose, flu-like symptoms. Patient had serial cardiac enzymes ( ) which are negative. Patient, I believe, is getting an echocardiogram. Patient's functionality is pretty good. ROS: all other systems were reviewed and were negative. PAST MEDICAL HISTORY: Atrial fibrillation, possibility of atrial fibrillation ( ) and as per the documentation has atrial fibrillation, atrial flutter. Diabetes mellitus, hypertension, insulin-dependent diabetes mellitus, chronic back pain, T8 compression fracture in the past, now T9 compression fracture for which patient will undergo kyphoplasty, cholecystectomy, previous orthopedic surgeries, lumbar surgery that is kyphoplasty. SOCIAL HISTORY: Denied any smoking, alcohol abuse or any drug abuse. Family history significant for myocardial infarction and father at age 52 of myocardial infarction. Mother at age 89. Home medications include: 1. Insulin Aspart. 2. Pioglitazone. 3. Glipizide. 4. Ferrous sulfate. 5. Metoprolol. 6. Cyclobenzaprine. 7. Losartan. 8. Hydrochlorothiazide. 9. Torsemide. 10. Tetracycline. 11. Fentanyl. PHYSICAL EXAMINATION: VITAL SIGNS: Temperature afebrile, pulse of 85, respiratory rate of 18, blood pressure of 140/65, saturating at 98% on room air. GENERAL: The patient is alert and oriented x3, not in any acute distress. Well developed, well nourished. HEENT: Pupils are round and equally reacting to light. EOMI. No scleral icterus. No conjunctival pallor. Normocephalic, atraumatic. No pharyngeal erythema. No thyromegaly. CARDIOVASCULAR: S1 and S2 present. No murmurs, rubs, or gallops. PULMONARY: Chest is clear to auscultation, no wheezing or crackles. ABDOMEN: Soft, nontender, nondistended, normoactive bowel sounds. No palpable organomegaly. MUSCULOSKELETAL: ( ). EXTREMITIES: No cyanosis, clubbing, or pedal edema. NEUROLOGICAL: Gross neurological examination did not reveal any focal deficits. SKIN: No rashes. LABORATORY DATA: CBC, CMP are abnormal for elevated sodium of 147, chloride of 111. The rest of the imaging was reviewed. Chest x-ray was suspicious for pulmonary edema, because of which I am stopping the IV fluids. ASSESSMENT AND PLAN: 1. Acute thoracic back pain due to compression fracture at T9 vertebra. Patient will undergo kyphoplasty tomorrow. I will go ahead and give her 5 mg of vitamin K and recheck the INR tomorrow. 2. Chest pain, atypical in nature. Further evaluation as per Cardiology. Cardiac clearance as per Cardiology as well. Patient appears to be low to intermediate risk for surgery. 3. History of atrial fibrillation, rate controlled presently. 4. Type 2 diabetes mellitus. Will order sliding scale insulin. The rest of her home medications will be discontinued. 5. Hypertension. Hold off antihypertensives except for beta blockers to prevent perioperative hypotension. 6. Obesity counseling was provided. 7. Supratherapeutic INR. Management as mentioned above. MTDD
[2016-08-14] MEDS: SODIUM CHLORIDE 0.9% 1,000 ML IV SCH (23:25)
[2016-08-15] MEDS: HYDROmorphone 1 MG/ML 1 ML SYRINGE IVP PRN ×4 (00:37→20:13)
[2016-08-15 06:27] LABS: Appearance,Urine Clear (Clear); Bilirubin,Urine Negative (Negative); Glucose,Urine (UA) Negative (Negative); Ketones,Urine Negative (Negative); Leukocyte Esterase,Urine Moderate (Negative); Mucus,Urine Few /hpf; Nitrite,Urine Negative (Negative); PH, Urine 5.5 (5.0-8.0); Particle Count 4203; Protein,Urine Trace (Negative); RBC,Urine 1 /hpf (0-5); Specific Gravity,Urine 1.025 (1.001-1.035); Squamous Epithelial Cell,Urine 1 /hpf (0-4); UA Billing (MACRO vs. MICRO) MICRO; Urobilinogen,Urine <2.0 mg/dL (<2.0); WBC,Urine 12 /hpf (0-5)
[2016-08-15 07:47] LABS: Glucose,Whole Blood 109 mg/dL (75-99)
[2016-08-15 08:03] LABS: INR 1.3 (<1.1); Prothrombin Time 12.8 sec (9.0-12.0)
[2016-08-15] MEDS: INSULIN LISPRO (humaLOG) 300 UNIT/3 ML VIAL SQ SCH ×4 (08:07→20:14)
[2016-08-15 08:09] LABS: Cholesterol 126 mg/dL (<200); HDL Cholesterol 50 mg/dL (40-60); Triglycerides 78 mg/dL (<150)
[2016-08-15] MEDS: METOPROLOL TARTRATE 50 MG TAB PO SCH ×2 (08:23→20:14)
[2016-08-15] MEDS: CYCLOBENZAPRINE 10 MG TAB PO SCH ×3 (08:31→22:06)
[2016-08-15] MEDS ORDERED: IV FLUID CONTINUATION 1,000 ML IV ONE (08:43)
[2016-08-15] MEDS ORDERED: BACITRACIN 50,000 UNIT, POLYMYXIN B 500,000 UNIT in SODIUM CHLORIDE 0.9% IRRIGATIO 1,00... IRRIGATION ONE (09:00)
[2016-08-15 09:11] LABS: Glucose,Whole Blood 100 mg/dL (75-99)
[2016-08-15] MEDS ORDERED: PHENYLEPHRINE-0.9% NACL SYG 1 MG/10 ML SYRINGE ONE (09:37)
[2016-08-15] MEDS ORDERED: LIDOCAINE 1% INJ 10MG/ML (20 ML MDV) ONE (09:37)
[2016-08-15] MEDS ORDERED: SUCCINYLCHOLINE CHLORIDE 100 MG/5 ML SYR IV ONE (09:37)
[2016-08-15] MEDS ORDERED: PROPOFOL 10 MG/ML 20 ML VIAL IV ONE (09:37)
[2016-08-15] MEDS ORDERED: ePHEDrine 50 MG/ML 1 ML AMP ONE (09:37)
[2016-08-15] MEDS ORDERED: HYDROmorphone (PF) 1 MG/ML ONE (09:37)
[2016-08-15] MEDS ORDERED: MIDAZOLAM 2 MG/2 ML VIAL ONE (09:37)
[2016-08-15] MEDS ORDERED: SODIUM CHLORIDE 0.9% 50 ML with ceFAZolin 3,000 MG IV ONE ×2 (09:55)
[2016-08-15] MEDS ORDERED: LIDOCAINE 0.5% (PF) 5 MG/ML (50 ML SDV) SQ ONE ×2 (10:06)
[2016-08-15] MEDS ORDERED: IOHEXOL 180 MG/ML 1 ML ML INTRATHECA ONE (10:11)
[2016-08-15] MEDS ORDERED: LACTATED RINGERS 1,000 ML IV ONE (10:14)
[2016-08-15] MEDS ORDERED: BENZOCAINE/MENTHOL LOZENG 1 EACH LOZENGE MUCOUS MEM PRN (10:40)
[2016-08-15] MEDS ORDERED: HYDROmorphone 1 MG/ML 1 ML SYRINGE IVP PRN (10:40)
[2016-08-15] MEDS ORDERED: HYDROcodone/APAP 5-325MG 1 EACH TAB PO PRN (10:40)
[2016-08-15] MEDS ORDERED: DIAZEPAM 5 MG TAB PO PRN (10:40)
--- NOTE | 2016-08-15 10:40 | P.OP ---
Date of Procedure: 08/15/16 Preoperative Diagnosis: T9 osteoporotic compression fracture, Postoperative Diagnosis: Same Anesthesia: GETA Pathology: other (T9 vertebral body biopsy sent to pathology in [facility]) Condition: stable Disposition: PACU Description of Procedure: BRIEF OPERATIVE NOTE Preoperative Diagnosis: Vertebral compression fracture T9, acute and osteoporotic Postoperative Diagnosis: Same Procedure: Kyphoplasty T9 Vertebral body biopsy T9 With insertion of bone cement at T9 Use of biplanar fluoroscopic guidance Surgeon: Dr. De Paz Front Desk Clerk: None Anesthesia: General anesthesia per Dr. Koroma Estimated blood loss: Less than 10 mL Specimen: T9 Vertebral body biopsy sent to pathology in [facility] Complications: None apparent Components implanted: Bone cement Disposition: To recovery room in good stable condition. OPERATIVE INDICATIONS The patient has been having issues in their back over the past month. She had a T8 compression fracture for which we saw her and attempted conservative treatment. Unfortunately she did not have benefit despite inserted care and underwent surgical intervention with T8 kyphoplasty. She had initial relief after that procedure but then a few weeks later started having increasing pain at her back again around the same site. She is found to have a new compression fracture at the next caudal level of T9. The patient was feeling quite incapacitated due to her pain and was actually admitted to the hospital for this. The patient has been through conservative treatment. They attempted conservative care with bracing however they're not having any benefit despite brace use. They continue to have significant pain and debility due to their fracture. We discussed various treatment options including surgery, and the patient wishes to proceed with surgery We discussed the risk, patient's alternatives and benefits of surgery including but not limited to, risk of bleeding risk of infection, risk of need for further surgery, risk of decreased , loss of motion, loss of function, cement extravasation, nerve damage, paralysis, heart attack, blindness and . The patient normally takes Coumadin and she has been off it this week and her coagulation profile has normalized. OPERATIVE SUMMARY After discussing all the risks, patient alternatives and benefits at length, the patient elected to proceed with surgical intervention, signed informed consent, and presented for their procedure. The patient was seen and examined in the preoperative holding area and the surgical site was marked. The patient was given antibiotics and brought to the operating room. The patient was sedated and intubated by anesthesia in standard fashion. The patient was positioned on to the operating room table in a prone position on the appropriate well-padded and well molded bilateral chest rolls. We were careful to pad any bony prominences and pressure points. We were careful to maintain the patient's cervical spine and good neutral alignment and position throughout. We used 2 C-arm machines to establish biplanar fluoroscopic guidance in AP and lateral positions. We were able to localize the fractures appropriately. The patient was prepped and draped in a normal standard fashion. An appropriate timeout and keystone protocol performed. We were able to proceed with the surgery. The local wound area was infiltrated with local anesthetic. An incision was made over the lateral aspect of the pedicle over the appropriate levels with a small 2 mm stab incision on the left at T9. Intraoperative fluoroscopy was taken which showed a marker at the appropriate level of T9 just below the prior kyphoplasty level of T8. With the appropriate level positively confirmed, I was able to position a sharp trocar over the lateral aspect of the pedicle. As able to advance the trocar into the pedicle and into the posterior aspect of vertebral body being careful to avoid penetration cephalad caudad or medially. The trocar was placed appropriately into the posterior aspect of vertebral body at the appropriate levels. This was confirmed with C-arm guidance. With the trocar intact I was then able to take a bone biopsy with a biopsy punch or a bony drill. The biopsy specimen was passed off to be sent to pathology in formalin. I was then able to place the kyphoplasty balloon within the vertebral body. The position was checked on C-arm. I was able to inflate the balloon under low pressure and visualization with C-arm. The balloon was well enclosed within the vertebral body. The cement was prepared. With the cement at appropriate working condition the balloons were deflated and removed. I was able to place bony cement with trocar with the cement delivery device under low pressure. It had good fill within the vertebral body. There is no evidence of any extravasation of the cement posteriorly toward the canal. I was able to inject approximately 3 and half cc of bone cement. The cement was well contained at the appropriate levels of T9. The cement was allowed to cure appropriately. The trochars removed and final images were taken on C-arm. This showed the cement at the appropriate levels. We were able to proceed with closure. The wound was cleaned and dried and dressed with the appropriate dressing. The drapes were broken down. The patient was gently rolled back onto their hospital bed being careful to maintain their cervical spine and good neutral alignment and position. They were woken up by anesthesia, extubated, and brought to the recovery room in good stable condition. The patient will be admitted to the hospital for observation and for appropriate postoperative care, medical management and monitoring. We will continue to follow them closely about the postoperative course.
[2016-08-15] MEDS: HYDROmorphone 1 MG/ML 1 ML SYRINGE IVP ONE ×3 (10:56→11:18)
[2016-08-15 11:00] LABS: Glucose,Whole Blood 107 mg/dL (75-99)
[2016-08-15 13:04] VITALS: BMI 49.8
--- NOTE | 2016-08-15 13:47 | XR ---
EXAMINATION TYPE: XR lumbar spine 2 or 3V, FL guidance operating room DATE OF EXAM: 08/15/2016 11:41 AM History: 75-year-old female kyphoplasty. FINDINGS: Images demonstrating T10 thoracic kyphoplasty. FLUOROSCOPY Fluoroscopy time of 49 seconds was used during thoracic kyphoplasty. 4 image/s document/s the proced ure. IMPRESSION: Intraprocedural fluoroscopy during T10 kyphoplasty.
[2016-08-15 16:13] LABS: Glucose,Whole Blood 90 mg/dL (75-99)
[2016-08-15] MEDS: SODIUM CHLORIDE 0.9% 1,000 ML IV SCH ×2 (16:35→20:15)
[2016-08-15] MEDS: ceFAZolin 3 GM in SODIUM CHLORIDE 0.9% 100 ML IVPB SCH ×2 (16:35→23:20)
[2016-08-15] MEDS ORDERED: WARFARIN 5 MG TAB PO SCH (18:00)
[2016-08-15] MEDS: HYDROcodone/APAP 5-325MG 1 EACH TAB PO PRN ×2 (19:28→23:20)
[2016-08-15 20:11] LABS: Glucose,Whole Blood 138 mg/dL (75-99)
[2016-08-15] MEDS: LACTATED RINGERS 1,000 ML IV SCH (20:15)
[2016-08-15] MEDS ORDERED: LEVOFLOXACIN 500MG-D5W PMX 500 MG in DEXTROSE/WATER 1 100ML.BAG IVPB SCH (23:00)
[2016-08-16] MEDS: HYDROmorphone 1 MG/ML 1 ML SYRINGE IVP PRN (00:41)
[2016-08-16] MEDS: SODIUM CHLORIDE 0.9% 1,000 ML IV SCH (01:07)
[2016-08-16] MEDS: HYDROcodone/APAP 5-325MG 1 EACH TAB PO PRN ×2 (03:19→10:32)
[2016-08-16] MEDS ORDERED: glipiZIDE 5 MG TAB PO SCH (07:30)
[2016-08-16 07:38] LABS: Basophils % (A) 1 %; CH 30.1; CHCM 30.4; Eosinophils # (A) 0.1 k/uL (0-0.7); Eosinophils % (A) 4 %; HCT 32.1 % (34.0-46.0); HDW 2.72; Hypochromasia Moderate; Luc # (Auto) 0.12; Luc % (Auto) 3; Lymphocytes # (A) 0.7 k/uL (1.0-4.8); Lymphocytes % (A) 21 %; MCH 30.9 pg (25.0-35.0); MCHC 31.1 g/dL (31.0-37.0); MCV 99.6 fL (80.0-100.0); Mean Platelet Volume 6.8; Monocytes # (A) 0.2 k/uL (0-1.0); Monocytes % (A) 7 %; Neutrophils # (A) 2.2 k/uL (1.3-7.7); Neutrophils % (A) 65 %; RBC 3.23 m/uL (3.80-5.40); RDW 14.1 % (11.5-15.5); WBC 3.4 k/uL (3.8-10.6); WBC (Perox) 3.63
[2016-08-16 07:41] LABS: INR 1.2 (<1.1); Prothrombin Time 12.3 sec (9.0-12.0)
[2016-08-16 07:54] LABS: Anion Gap 9 mmol/L; Blood Urea Nitrogen 10 mg/dL (7-17); Calcium 8.7 mg/dL (8.4-10.2); Carbon Dioxide 23 mmol/L (22-30); Chloride 109 mmol/L (98-107); Glucose 80 mg/dL (74-99); Non-African American GFR(MDRD) >60 (>60 ml/min/1.73 sqM); Potassium 4.5 mmol/L (3.5-5.1); Sodium 141 mmol/L (137-145)
[2016-08-16 08:03] LABS: Glucose,Whole Blood 80 mg/dL (75-99)
--- NOTE | 2016-08-16 08:29 | P.DS ---
Providers Date of admission: 08/14/16 05:29 Expected date of discharge: 08/16/16 Attending physician: Conchita De Paz Consults: 08/14/16 05:54 Consult Physician Routine Consulting Provider: [facility] Consult Reason/Comments: chest pain Do you want consulting provider notified?: Yes, Notify in am 08/14/16 14:10 Consult Physician Routine Consulting Provider: Rodrigo Dietrich Reason/Comments: for medical management Do you want consulting provider notified?: Already Contacted Primary care physician: Rox Parmar - Patt[place] Diagnosis(es) (1) Acute thoracic back pain Current Visit: Yes Status: Acute (2) Wedge compression fracture of T9 vertebra Current Visit: Yes Status: Acute (3) Hx of kyphoplasty Current Visit: Yes Status: Acute (4) Atypical chest pain Current Visit: Yes Status: Acute (5) History of atrial fibrillation Current Visit: Yes Status: Acute (6) Hypertension Current Visit: Yes Status: Acute (7) Diabetes Current Visit: No Status: Acute Hospital Course: This is a pleasant 75-year-old female who is well known to our service who who presented with an acute T9 compression fracture who failed outpatient conservative therapy. She admitted for T9 kyphoplasty with biopsy. She was having some chest pain at presentation as well and was seen and examined by cardiology and cleared for surgical intervention. Postsurgically she continued to experience some pain in thoracic spine. Over the course of yesterday, her symptoms have significantly improved. She states this is the first time since she can remember that she didn't have significant pain in her thoracic spine. She is not currently experiencing any lower extremity radiculopathy or weakness bilaterally. The patient tolerated the procedure well and did well postoperatively. Patient states she is quite pleased with her progress so far and is ready for discharge. Condition on day of discharge stable. Patient will be discharged home. Patient was cleared preoperatively for surgery by Dr. Fall and Dr. Carrillo. Patient currently denies any nausea, vomiting, fever, or chills. Patient is eating and voiding freely without difficulty. Patient may shower Tegaderm dressing intact. Patient may remove Tegaderm dressing in 3 days and shower without a dressing at that time. Patient should keep Steri- Strips intact and allow them to fall off naturally. Patient should refrain from driving until at least after their first follow-up appointment in the office. Patient should avoid excessive bending, lifting, and twisting; no lifting greater than 10 pounds. Patient states she has prescriptions for Independence 10 mg/325 mg and Flexeril 10 mg prescribed to her in the emergency department. She'll plan to fill these prescriptions at the time of discharge and states she does not currently need medication prescriptions. She may also resume Coumadin and other home medications as previously prescribed. Physical Exam on day of discharge: Patient is awake, alert, and oriented 3 Vital signs stable Good chest excursion with deep inspiration and expiration Abdomen soft nontender No signs or symptoms of DVT; no calf pain Extensor hallucis longus, plantarflexion, and dorsiflexion positive sustained bilateral lower extremities Thoracolumbar spine nontender to palpation Incision is clean, dry, and intact; no erythema, purulence, or signs of infection Tegaderm dressing and non-stick Telfa intact Procedures: T9 kyphoplasty with biopsy Patient Condition at Discharge: Stable Plan - Discharge Summary Discharge Medication List Insulin Aspart Protam & Aspart [NovoLOG MIX 70-30 Flexpen] 20 unit SQ QAM [History] Pioglitazone [Actos] 30 mg PO QAM 06/13/14 [History] glipiZIDE XL [Glucotrol XL] 10 mg PO QAM 06/13/14 [History] Ferrous Sulfate [Feosol] 325 mg PO DAILY 06/18/16 [History] Metoprolol Tartrate [Lopressor] 50 mg PO BID 06/18/16 [History] Cyclobenzaprine [Flexeril] 10 mg PO TID 07/10/16 [History] Losartan/Hydrochlorothiazide [Hyzaar 100-25 Tablet] 1 tab PO DAILY 07/10/16 [ History] Torsemide [Demadex] 20 mg PO DAILY 07/10/16 [History] Warfarin [Coumadin] 5 mg PO DAILY #0 07/11/16 [Rx] traMADol HCL [Ultram] 50 mg PO Q6HR PRN #20 tab 07/11/16 [Rx] Cyclobenzaprine [Flexeril] 10 mg PO TID #20 tab 08/09/16 [Rx] HYDROcodone/APAP 10-325MG [Independence 10-325] 1 tab PO Q6H PRN #15 tab 08/09/16 [Rx] Follow up Appointment(s)/Referral(s): Rox Parmar DO [Primary Care Provider] - 1-2 days Silver Calvillo PAC [PHYSIC[facility] [employer] [facility]] - 2 Weeks (Patient may follow-up with Silver Calvillo PA-C or Dr. Rex De Paz at [facility] in 2-3 weeks following discharge. ) Activity/Diet/Wound Care/Special Instructions: 1. Patient may shower Tegaderm dressing intact. 2. Patient may remove Tegaderm dressing in 3 days and shower without a dressing at that time. 3. Patient should keep Steri-Strips intact and allow them to fall off naturally. 4. Patient should refrain from driving until at least after their first follow- up appointment in the office. 5. Patient should avoid excessive bending, twisting, and lifting; no lifting greater than 10 pounds 6. Do not soak in tub Discharge Disposition: HOME SELF-CARE
[2016-08-16 08:41] VITALS: BP 118/82; PULSE 67; RESP 16; TEMP 97.8
[2016-08-16] MEDS ORDERED: LOSARTAN-HCTZ 50-12.5 MG 1 EACH TAB PO SCH (09:00)
[2016-08-16] MEDS ORDERED: TORSEMIDE 20 MG TAB PO SCH (09:00)
[2016-08-16] MEDS: INSULIN LISPRO (humaLOG) 300 UNIT/3 ML VIAL SQ SCH (09:00)
[2016-08-16] MEDS ORDERED: INSULN ASP PRT/INSULIN ASPART 100 UNIT/ML 10 ML VIAL SQ SCH (09:00)
[2016-08-16] MEDS ORDERED: PIOGLITAZONE 30 MG TAB PO SCH (09:00)
[2016-08-16] MEDS ORDERED: FERROUS SULFATE 325 MG TAB PO SCH (09:00)
[2016-08-16] MEDS: CYCLOBENZAPRINE 10 MG TAB PO SCH (09:01)
[2016-08-16] MEDS: METOPROLOL TARTRATE 50 MG TAB PO SCH (09:02)
--- NOTE | 2016-08-16 10:59 | PN ---
DATE OF SERVICE: 08/15/2016 This 75-year-old woman who was admitted with acute thoracic back pain due to T9 compression fracture underwent kyphoplasty T9 and vertebral biopsy T9 with insertion of bone cement at T9 with use of biplanar fluoroscopic guidance by Dr. De Pza. No chest pain or palpitation. No fever. No shortness of breath. The Coumadin has been reversed. REVIEW OF SYSTEMS: CARDIOVASCULAR: No angina or palpitations. RESPIRATORY: nad GI: As mentioned earlier. : No dysuria. NERVOUS SYSTEM: No numbness or weakness. Current medications are: 1. [place] 10 mg q.6 p.r.n. 2. Cepacol. 3. Cefazolin. 4. Valium. 5. Glucotrol. 6. Hyzaar. 7. Dilaudid. 8. NovoLog mix. 9. Toradol. 10. Lactated Ringers. 11. Lopressor. 12. Actos. 13. Demadex. 14. Coumadin. On exam, alert and oriented x3. Pulse is 71, blood pressure 149/59, respirations 16, temperature 98.7, pulse ox 98% on 2 L. HEENT: Conjunctivae normal. NECK: No jugular venous distention. CARDIOVASCULAR: S1 and S2, muffled. RESPIRATORY: Breath sounds diminished at the bases. No rhonchi, no crackles. ABDOMEN: Soft, nontender. LEGS: No edema, no swelling. NERVOUS SYSTEM: No focal deficits. LABS: Sodium 147. Alk phos 131. UA moderate WBC leukocyte esterase. INR 3.2 and 1.3. ASSESSMENT: 1. Acute thoracic compression fracture T9, status post kyphoplasty T9 vertebral body biopsy T9 with insertion of bone cement T9 with the use of biplanar fluoroscopic guidance. 2. Chest pain, possibly musculoskeletal. 3. History of atrial fibrillation, rate controlled. 4. Diabetes mellitus type 2. 5. Coumadin monitoring. 6. Hypertension. 7. Obesity. 8. therapeutic INR, present on admission. 9. Hypernatremia. 10. Increased random blood sugar. 11. Obesity with body mass index of 49.9. 12. Gait dysfunction. 13. Possible urinary tract infection. RECOMMENDATIONS AND DISCUSSION: In this 75-year-old woman who presented with multiple complex medical issues, we will monitor the patient closely. Continue the current medications. Continue symptomatic treatment. Otherwise, at this time, I would recommend continue the current medications including beta blockers. I would also recommend a course of antibiotics. Repeat electrolytes in the morning. Monitor blood sugars closely. Otherwise a cardiology consultation has been sought further recommendations to follow. The troponins are negative. The EKG was also reviewed which did not show any acute abnormalities. Further recommendations to follow. MTDD
== END 2016-08-16 10:56 | disposition home or self-care (01) ==
LOC: EC 04:26 → 3OBS 05:29 → 5MS5E 18:46
PROVIDERS: ADMIT Orthopaedic Surgery Orthopaedic Surgery of the Spine; ATTEND Orthopaedic Surgery Orthopaedic Surgery of the Spine
DX: M80.08XA Age-related osteoporosis with current pathological fracture, vertebra(e), initial encounter for fracture (principal); R07.89 Other chest pain; I48.0 Paroxysmal atrial fibrillation; E11.9 Type 2 diabetes mellitus without complications; I10 Essential (primary) hypertension; E87.0 Hyperosmolality and hypernatremia; E66.9 Obesity, unspecified; R79.1 Abnormal coagulation profile; Z68.42 Body mass index [BMI] 45.0-49.9, adult; I48.92 Unspecified atrial flutter; R26.9 Unspecified abnormalities of gait and mobility; Z79.01 Long term (current) use of anticoagulants; Z79.4 Long term (current) use of insulin; Z79.84 Long term (current) use of oral hypoglycemic drugs; Z79.899 Other long term (current) drug therapy; Z88.1 Allergy status to other antibiotic agents; Z82.49 Family history of ischemic heart disease and other diseases of the circulatory system
CPT/HCPCS: 22513; 96374 ×2; 96375 ×2; 96361; 99284 ×2; 36415; 93005 ×2; 80061; 80053; 80048; 82550; 82553; 83735; 84484; 85025 ×2; 85610 ×3; 85730; 81001; 88342; 88307; 88311; 88341; 71010; 72100; G0378 ×3; J2250; J2360; Q9965; J0690 ×2; J1956; J2001 ×2; J1170 ×3; J2370; J0330; J2704

== ENCOUNTER 2016-11-01 17:00 | Observation (INO) | payer MEDICARE ==
[2016-11-01] MEDS ORDERED: ASPIRIN 81 MG CHEW PO STA (17:18)
[2016-11-01] MEDS ORDERED: NITROGLYCERIN OINT 1 INCH/GM PACKET TOPICAL STA (17:18)
[2016-11-01 18:06] LABS: Basophils % (A) 1 %; CH 30.6; CHCM 31.1; Eosinophils # (A) 0.1 k/uL (0-0.7); Eosinophils % (A) 2 %; HCT 37.9 % (34.0-46.0); HGB 12.1 gm/dL (11.4-16.0); Luc # (Auto) 0.15; Luc % (Auto) 3; Lymphocytes # (A) 0.8 k/uL (1.0-4.8); Lymphocytes % (A) 16 %; MCH 31.6 pg (25.0-35.0); MCV 98.8 fL (80.0-100.0); Mean Platelet Volume 7.7; Monocytes # (A) 0.3 k/uL (0-1.0); Monocytes % (A) 5 %; Neutrophils # (A) 3.4 k/uL (1.3-7.7); Neutrophils % (A) 73 %; RBC 3.83 m/uL (3.80-5.40); WBC 4.7 k/uL (3.8-10.6)
[2016-11-01 18:08] LABS: ALT 30 U/L (9-52); AST 23 U/L (14-36); Alkaline Phosphatase 93 U/L (38-126); Anion Gap 11 mmol/L; Blood Urea Nitrogen 18 mg/dL (7-17); Calcium 9.6 mg/dL (8.4-10.2); Carbon Dioxide 25 mmol/L (22-30); Chloride 108 mmol/L (98-107); Glucose 168 mg/dL (74-99); Non-African American GFR(MDRD) >60 (>60 ml/min/1.73 sqM); Potassium 5.2 mmol/L (3.5-5.1); Sodium 144 mmol/L (137-145); Total Protein 7.1 g/dL (6.3-8.2)
[2016-11-01 18:14] LABS: INR 2.3 (<1.1)
[2016-11-01 18:15] LABS: Partial Thromboplastin Time 27.4 sec (22.0-30.0); Prothrombin Time 21.8 sec (9.0-12.0)
[2016-11-01 18:25] LABS: Creatine Kinase 45 U/L (30-135)
[2016-11-01 18:38] LABS: Creatine Kinase MB <0.2 ng/mL (0.0-2.4); Troponin I <0.012 ng/mL (0.000-0.034)
--- NOTE | 2016-11-01 19:56 | XR ---
EXAMINATION TYPE: XR chest 2V DATE OF EXAM: 11/01/2016 7:47 PM COMPARISON: 08/14/2016 HISTORY: Chest pain TECHNIQUE: Frontal and lateral views of the chest are obtained. FINDINGS: There is no heart failure nor confluent pneumonic infiltrate. Heart is enlarged. There is a linear density in the left midlung. This coarsening of interstitial pulmonary markings. There are n o hilar masses. There is vertebroplasty in the lower thoracic spine. IMPRESSION: Cardiomegaly and pulmonary fibrosis. atelectasis In the left midlung appears new compar ed to old exam. No heart failure seen..
[2016-11-01] MEDS ORDERED: HYDROmorphone 1 MG/ML 1 ML SYRINGE IVP STA (20:04)
[2016-11-01] MEDS ORDERED: FUROSEMIDE 10 MG/ML 10 ML VIAL IV STA (20:07)
--- NOTE | 2016-11-01 20:07 | ED ---
Chest Pain HPI - General Chief Complaint: Chest Pain Stated Complaint: chest pain Time Seen by Provider: 11/01/16 17:07 Source: patient Mode of arrival: wheelchair Limitations: no limitations - History of Present Illness Initial Comments: This 76-year-old white female presents with a complaint of some chest pain. It is described as a squeezing and sharp type of pain. It seems constant nature. It is associated with some shortness of breath. The onset occurred yesterday. She states that it radiates down the left arm and into her left neck. She has had some palpitations and occasional cough but no fever. She does have a history of some edema. She stopped her Lasix approximately 2 months ago because this made her incontinent. She denies any history of DVT or PE. Her last stress test was approximately 3 years ago. She denies any known history of coronary artery disease or congestive heart failure. She denies any known history of pulmonary fibrosis. She is complaining of some chronic back pain and has had multiple back issues and surgeries in the past and this is similar to her normal exacerbation. She is requesting pain medication in this regard. No other complaints or modifying factors. - Related Data Home Medications Medication Instructions Recorded Confirmed Insulin Aspart Protam & Aspart 20 unit SQ QAM 06/13/14 11/01/16 [NovoLOG MIX 70-30 Flexpen] Pioglitazone [Actos] 30 mg PO QAM 06/13/14 11/01/16 glipiZIDE XL [Glucotrol XL] 10 mg PO QAM 06/13/14 11/01/16 Ferrous Sulfate [Feosol] 325 mg PO DAILY 06/18/16 11/01/16 Metoprolol Tartrate [Lopressor] 50 mg PO BID 06/18/16 11/01/16 Allergy Tab(Unknown) 1 tab PO DAILY PRN 11/01/16 11/01/16 Aspirin EC [Ecotrin Low Dose] 81 mg PO HS 11/01/16 11/01/16 Simvastatin [Zocor] 40 mg PO DAILY 11/01/16 11/01/16 Warfarin [Coumadin] 5 mg PO HS 11/01/16 11/01/16 Allergies Allergy/AdvReac Type Severity Reaction Status Date / Time tetracycline Allergy Unknown Verified 08/15/16 09:14 fentanyl AdvReac "SKIN Verified 11/01/16 18:23 CRAWLS", HYPER Review of Systems ROS Statement: Those systems with pertinent positive or pertinent negative responses have been documented in the HPI. ROS Other: All systems not noted in ROS Statement are negative. Past Medical History Past Medical History: Atrial Fibrillation, Hyperlipidemia, Hypertension Additional Past Medical History / Comment(s): POST OP INFECTION AFTER BACK SURGERY. UPPER BRIDGE, UTI COMPLETE ABX, CHRONIc BACK PAIN, FROM FX. PERIPHERAL LEG EDEMA.T8 FX History of Any Multi-Drug Resistant Organisms: None Reported Past Surgical History: Back Surgery, Cholecystectomy, Orthopedic Surgery Additional Past Surgical History / Comment(s): LUMBAR SURGERY, 2015. FX NOSE REPAIR. BILATERAL CATARACT SURGERY. R WRIST CARPAL TUNNEL SURGERY, kyphoplasty T8 ON 06/26/16. Past Anesthesia/Blood Transfusion Reactions: No Reported Reaction Additional Past Anesthesia/Blood Transfusion Reaction / Comment(s): NEVER HAD A BLOOD TRANSFUSION. Past Psychological History: No Psychological Hx Reported Additional Psychological History / Comment(s): PT LIVES ALONE IN A [place]LO[place]. SHE IS INDEPENDENT. SHE DRIVES A CAR. Smoking Status: Never smoker Past Alcohol Use History: None Reported Past Drug Use History: None Reported - Past Family History Father Family Medical History: Myocardial Infarction ([place]) Additional Family Medical History / Comment(s): FATHER AT AGE 52 OF AN [place] Mother Additional Family Medical History / Comment(s): MOTHER AT AGE 89 OF CELEBREX PROBLEM. General Exam - General Exam Comments Initial Comments: GENERAL: The patient is well nourished and well hydrated. VITAL SIGNS: Heart rate, blood pressure, respiratory rate reviewed as recorded in nurse's notes. EYES: Pupils are round and reactive. Extraocular movements are intact. No conjunctival / lid redness or swelling. ENT: No external evidence of injury, swelling, or ecchymosis. Airway is patent. Throat is clear. NECK: Nontender. No swelling or evidence of injury. No subcutaneous emphysema. Trachea is midline. No thyroid mass. HEART: Regular rate and rhythm. Good peripheral pulses. LUNGS/CHEST: Breath sounds clear and equal bilaterally. No rales, rhonchi, or wheezes. No ecchymosis, subcutaneous emphysema, or tenderness. ABDOMEN: Abdomen soft without tenderness. No palpable masses or organomegaly. No peritoneal signs. No abdominal wall swelling or ecchymosis. EXTREMITIES: No extremity tenderness. Normal muscle tone and function. Mild tenderness diffusely throughout the back. There is some mild extremity edema noted. NEUROLOGIC: Sensation is grossly intact. Cranial nerve exam reveals face is symmetrical, tongue is midline, speech is clear. SKIN: No abrasions or ecchymosis is noted. No induration or masses noted. PSYCHIATRIC: Alert and oriented. Appropriate behavior and judgment. Limitations: no limitations Course Vital Signs 11/01/16 11/01/16 17:01 17:23 Temperature 97.7 F 98.9 F Pulse Rate 100 99 Respiratory 30 H 24 Rate Blood Pressure 144/63 139/63 O2 Sat by Pulse 97 97 Oximetry Chest Pain MDM - MDM The patient was seen and examined. All diagnostics were reviewed. The EKG shows a normal sinus rhythm at a rate of 67. There is some nonspecific ST-T wave changes noted inferiorly. The NE interval is 162, QS duration is 80, and QTC intervals 454. The chest x-ray shows evidence of pulmonary fibrosis and atelectasis but no evidence of acute process. Her INR is therapeutic at 2.3. Her potassium is slightly elevated at 5.2. Remainder labs are essentially within normal limits other than an elevated BMP. The patient receives aspirin as well as Nitropaste and Lasix in Dilaudid. She is feeling improved on recheck. It is felt as though she should be admitted to the hospital for further cardiac workup and treatment. The possibility of some underlying COPD/ pulmonary fibrosis certainly is possible as well. The possibility of some mild congestive heart failure is certainly possible especially in light of her stopping her Lasix. Case will be discussed with internal medicine in the near future and patient is admitted with cardiology consult. Disposition Clinical Impression: Chest pain, Dyspnea, Unstable angina, Pulmonary fibrosis, Chronic back pain, Morbid obesity, Lower extremity edema, Hyperkalemia Disposition: ADMITTED IP TO THIS HOSP Condition: Fair Time of Disposition: 20:12 Decision Date: 11/01/16 Decision Time: 20:12
[2016-11-01] MEDS ORDERED: NITROGLYCERIN SL TABS 0.4 MG TAB SUBLINGUAL PRN (20:12)
[2016-11-01] MEDS ORDERED: MORPHINE SULFATE 4 MG/ML SYRINGE IV PRN (20:12)
[2016-11-01] MEDS ORDERED: [UNRECOGNIZED DRUG - REMARK] PO PRN (20:14)
[2016-11-01] MEDS ORDERED: WARFARIN 5 MG TAB PO SCH (21:00)
[2016-11-01 21:04] LABS: Hemoglobin A1C 5.5 % (4.2-6.1)
[2016-11-01 22:25] LABS: Glucose,Whole Blood 160 mg/dL (75-99)
[2016-11-01] MEDS: INSULIN LISPRO (humaLOG) 300 UNIT/3 ML VIAL SQ SCH (22:31)
[2016-11-01] MEDS: METOPROLOL TARTRATE 50 MG TAB PO SCH (22:32)
[2016-11-01] MEDS ORDERED: ONDANSETRON 4 MG/2 ML VIAL IVP PRN (23:18)
[2016-11-01] MEDS: NITROGLYCERIN OINT 1 INCH/GM PACKET TOPICAL SCH (23:50)
[2016-11-02 00:39] LABS: Creatine Kinase 41 U/L (30-135)
[2016-11-02 00:53] LABS: Creatine Kinase MB 0.3 ng/mL (0.0-2.4); Troponin I <0.012 ng/mL (0.000-0.034)
[2016-11-02] MEDS: IPRATROPIUM-ALBUTEROL 3 ML NEB INHALATION SCH ×6 (01:26→20:15)
[2016-11-02 05:57] LABS: Cholesterol 138 mg/dL (<200); HDL Cholesterol 68 mg/dL (40-60); Triglycerides 58 mg/dL (<150)
[2016-11-02 06:15] LABS: Creatine Kinase 39 U/L (30-135)
[2016-11-02 06:28] LABS: Creatine Kinase MB 0.2 ng/mL (0.0-2.4); Troponin I <0.012 ng/mL (0.000-0.034)
[2016-11-02] MEDS: NITROGLYCERIN OINT 1 INCH/GM PACKET TOPICAL SCH ×3 (06:38→18:49)
[2016-11-02 06:49] LABS: Glucose,Whole Blood 104 mg/dL (75-99)
[2016-11-02] MEDS: INSULIN LISPRO (humaLOG) 300 UNIT/3 ML VIAL SQ SCH ×4 (10:02→19:52)
[2016-11-02] MEDS: ATORVASTATIN 20 MG TAB PO SCH (10:11)
[2016-11-02] MEDS: FERROUS SULFATE 325 MG TAB PO SCH (10:11)
[2016-11-02] MEDS: ASPIRIN 325 MG TAB PO SCH (10:11)
[2016-11-02] MEDS: LOSARTAN 50 MG TAB PO SCH (10:11)
[2016-11-02] MEDS: PIOGLITAZONE 30 MG TAB PO SCH (10:11)
[2016-11-02] MEDS: FUROSEMIDE 10 MG/ML 4 ML VIAL IV SCH ×2 (10:12→19:37)
[2016-11-02] MEDS: glipiZIDE 5 MG TAB PO SCH ×2 (10:13→17:13)
[2016-11-02] MEDS: METOPROLOL TARTRATE 50 MG TAB PO SCH ×2 (10:31→19:38)
[2016-11-02] MEDS: ACETAMINOPHEN TAB 325 MG TAB PO PRN ×2 (10:32→17:13)
[2016-11-02] MEDS: INSULN ASP PRT/INSULIN ASPART 100 UNIT/ML 10 ML VIAL SQ SCH (10:33)
--- NOTE | 2016-11-02 11:52 | CONS ---
DATE OF CONSULTATION: Hortencia Mcpherson is a 76-year-old elderly lady with chronic back pain, previous surgeries, type 2 diabetes, hypertension, hypercholesterolemia and paroxysmal atrial fibrillation. She came into the hospital with complaints of what she describes as a sensation of heaviness and pressure in the chest and a squeezing sensation that seemed to also radiate down her left arm. She had some palpitations, but no mauro syncope. She has mild diaphoresis. However, she is resting comfortably without symptoms. She also has back pain and usually it is difficult to tease out whether she is having back pain with radiation or it is her chest discomfort; however, she is comfortable at the time. Denies any chest pain. She had symptoms that were suggestive of angina, when she came into the hospital, but her troponins are also within normal limits. She is resting comfortably without symptoms. PAST MEDICAL HISTORY: 1. Chronic back pain with previous surgeries. 2. Hypertension. 3. Type 2 diabetes mellitus. 4. Paroxysmal atrial fibrillation. 5. History of previous back surgery and lumbar spine surgery. Also had a cataract surgery and carpal tunnel surgery. ALLERGIES: Allergic to TETRACYCLINE and FENTANYL. Medications at home include insulin, Actos, glipizide, metoprolol tartrate 50 mg b.i.d., iron supplements, aspirin 81 mg daily, simvastatin 40 mg daily, Coumadin 5 mg daily, INR of 2.3. EKG revealed a sinus mechanism without any significant ST-T changes. On examination, blood pressure is 140/70, pulse rate is 60 per minute, regular. HEENT: Unremarkable. Fundus was not examined by me. Neck is supple. There is no JVD. I do not hear any carotid bruit. There is no thyromegaly. Heart exam reveals S1, S2 with a short systolic murmur. Lungs reveal diminished air entry. Abdomen is soft and nontender. Lower extremities reveal diminished pulses. No edema. Central nervous system is normal. EKG revealed sinus mechanism without any acute changes. Laboratory data revealed that troponins are normal and BNP is modestly elevated at 204. IMPRESSION: 1. Chest pain syndrome, cannot exclude angina. 2. Hypertension. 3. Type 2 diabetes mellitus. 4. History of paroxysmal atrial fibrillation, anticoagulated, maintaining sinus rhythm. 5. History of chronic back pain. RECOMMENDATIONS: I am recommending that we will increase activity, see how she does. If she has any further symptoms suggestive of angina, I will perform coronary angiography. Otherwise we will discharge her and perform a stress test as an outpatient. I discussed my thoughts in detail with the patient. We will increase activity and see how she does. Thank you very much for the consult.
[2016-11-02 12:04] LABS: Glucose,Whole Blood 98 mg/dL (75-99)
--- NOTE | 2016-11-02 15:11 | ECHOF ---
Referral Reason:cp and sob MEASUREMENTS -------- HEIGHT: 167.6 cm WEIGHT: 133.8 kg BP: 140/60 RVIDd: 3.8 cm (< 3.3) IVSd: 1.5 cm (0.6 - 1.1) LVIDd: 4.1 cm (3.9 - 5.3) LVPWd: 1.0 cm (0.6 - 1.1) IVSs: 2.2 cm LVIDs: 1.6 cm LVPWs: 2.0 cm LAESV Index (A-L): 24.83 ml/m Ao Diam: 2.3 cm (2.0 - 3.7) AV Cusp: 1.8 cm (1.5 - 2.6) LA Diam: 4.5 cm (2.7 - 3.8) MV EXCURSION: 11.453 mm (> 18.000) MV EF SLOPE: 41 mm/s (70 - 150) EPSS: 0.5 cm MV E Wolf: 1.10 m/s MV DecT: 184 ms MV A Wolf: 0.62 m/s MV E/A Ratio: 1.77 RAP: 15.00 mmHg RVSP: 54.61 mmHg FINDINGS -------- Sinus rhythm. This was a technically good study. There is mild concentric left ventricular hypertrophy. Overall left ventricular systolic function is normal with, an EF between 55 - 60 %. The right ventricle is mild to moderately enlarged. The left atrium is mildly dilated. The right atrium is normal in size. Aortic valve is trileaflet and is mildly thickened. The mitral valve leaflets are mildly thickened. Mild mitral regurgitation is present. [id number]-crygtqwd tricuspid regurgitation present. There is mild to moderate pulmonary hypertension. The right ventricular systolic pressure, as measured by Doppler, is 54.61mmHg. Trace/mild (physiologic) pulmonic regurgitation. The aortic root size is normal. The pericardium is normal. CONCLUSIONS -------- 1. Sinus rhythm. 2. Mild mitral regurgitation is present. 3. Umas-en-covbpryt tricuspid regurgitation present. 4. There is mild to moderate pulmonary hypertension. 5. The right ventricular systolic pressure, as measured by Doppler, is 54.61mmHg. 6. Trace/mild (physiologic) pulmonic regurgitation. 7. The aortic root size is normal. 8. The pericardium is normal. 9. This was a technically good study. 10. There is mild concentric left ventricular hypertrophy. 11. Overall left ventricular systolic function is normal with, an EF between 55 - 60 %. 12. The right ventricle is mild to moderately enlarged. 13. The left atrium is mildly dilated. 14. The right atrium is normal in size. 15. Aortic valve is trileaflet and is mildly thickened. 16. The mitral valve leaflets are mildly thickened. [employer] F[employer]ER: Adrianne Soares RDCS
[2016-11-02 16:56] LABS: Glucose,Whole Blood 94 mg/dL (75-99)
--- NOTE | 2016-11-02 19:14 | HP ---
DATE OF SERVICE: 11/02/2016 CHIEF COMPLAINT: Chest pain. Ms. Mcpherson is a 76-year-old female with a past medical history of chronic low back pain, morbid obesity, hypertension, type 2 diabetes mellitus, paroxysmal atrial fibrillation, coming to the hospital complaining of chest heaviness. The patient states that she has been having substernal chest heaviness like a squeezing sensation which is radiating to the left jaw and left arm and so came into the hospital for further evaluation. Patient denies having any difficulty in breathing or diaphoresis at the time of having the chest pain. She has some palpitations, but there was no loss of consciousness. Patient denies having any recent travel. No recent surgeries. She denies having any cough or difficulty in breathing. No sick contacts. She denies having any nausea, vomiting or diarrhea or abdominal pain. She denies having any changes in her bowel or bladder pattern. She does not have any history of coronary artery disease in the past, but she has paroxysmal atrial fibrillation and she is morbidly obese. REVIEW OF SYSTEMS: All 13 review of systems are done and negative except for ones mentioned above. Past medical history is significant for paroxysmal atrial fibrillation, hypertension, hyperlipidemia, morbid obesity, osteoarthritis. PAST SURGICAL HISTORY: Positive for back surgery, cholecystectomy and cataract surgery and lumbar surgery. SOCIAL HISTORY: The patient was never a smoker. Occasional alcohol. The patient lives alone and is independent. Family history is positive for coronary artery disease in her father, who at the age of 52. ALLERGIES TO TETRACYCLINE AND FENTANYL. Patient's home medications: 1. Glucotrol XL 10 mg p.o. q.a.m. 2. Pioglitazone 30 mg p.o. q.a.m. 3. NovoLog 70/30, 20 units q.a.m. 4. Ferrous sulfate 300 mg p.o. daily. 5. Metoprolol 50 mg p.o. b.i.d. 6. Simvastatin 40 mg p.o. daily. 7. Aspirin 81 mg p.o. q.h.s. 8. Coumadin 5 mg p.o. q.h.s. On examination, patient's vital signs: Temperature 97.9, heart rate 60, respiratory rate 16, blood pressure 106/54, saturating at 93%. GENERAL: Patient is a morbidly obese female, lying in bed, appears to be in no acute distress. HEAD: Atraumatic, normocephalic. EYES: Pupils are round, reactive to light. Neck is short. No thyromegaly. CARDIOVASCULAR: S1, S2 heard. Positive for a systolic murmur. LUNGS: Bilateral breath sounds are diminished in all lung nova. No wheezes or crackles appreciated. GI: Abdomen is soft, nontender. Organomegaly difficult to appreciate due to huge body habitus. Lower extremities are positive for mild pinkish discoloration, can be due to chronic venous congestion, as the patient is morbidly obese. No edema. No cyanosis. Pulses difficult to palpate, as she is obese. UTILITY APPRAISER: Alert, awake, oriented x3. No focal deficits. PSYCHIATRIC: Appropriate mood and affect. SKIN: No rashes. MUSCULOSKELETAL: No joint swellings or deformities. Patient's labs: White count of 4.7, hemoglobin is 12.1, platelets of 209. Sodium is 144, potassium 5.2, chloride 108, bicarb 25, BUN 18, creatinine 0.84. Troponin less than 0.012 x 2. Hemoglobin A1c of 5.5. LDL of 58 and HDL is 68. EKG within normal limits. Chest x-ray within normal limits. ASSESSMENT: 1. Atypical chest pain. 2. Hypertension. 3. Type 2 diabetes mellitus. 4. History of paroxysmal atrial fibrillation. 5. History of chronic low back pain. 6. Morbid obesity with body mass index of 47.6. RECOMMENDATIONS: Patient will be getting serial troponins and EKGs to rule out acute coronary syndrome. Will resume the patient's home medications and the patient is asymptomatic now. Further recommendations to follow, depending on the progress of the patient.
[2016-11-02 19:54] LABS: Glucose,Whole Blood 184 mg/dL (75-99)
[2016-11-02] MEDS: HYDROcodone/APAP 5-325MG 1 EACH TAB PO PRN (20:42)
[2016-11-03] MEDS: IPRATROPIUM-ALBUTEROL 3 ML NEB INHALATION SCH ×3 (00:05→10:56)
[2016-11-03 01:25] VITALS: RESP 16
[2016-11-03] MEDS: NITROGLYCERIN OINT 1 INCH/GM PACKET TOPICAL SCH ×3 (03:22→12:03)
[2016-11-03 06:49] LABS: Glucose,Whole Blood 85 mg/dL (75-99)
[2016-11-03 07:26] LABS: INR 2.3 (<1.1)
[2016-11-03] MEDS: glipiZIDE 5 MG TAB PO SCH (08:55)
[2016-11-03] MEDS: METOPROLOL TARTRATE 50 MG TAB PO SCH (08:55)
[2016-11-03] MEDS: ASPIRIN 325 MG TAB PO SCH (08:55)
[2016-11-03] MEDS: LOSARTAN 50 MG TAB PO SCH (08:55)
[2016-11-03] MEDS: FUROSEMIDE 10 MG/ML 4 ML VIAL IV SCH (08:55)
[2016-11-03] MEDS: PIOGLITAZONE 30 MG TAB PO SCH (08:55)
[2016-11-03] MEDS: ATORVASTATIN 20 MG TAB PO SCH (08:56)
[2016-11-03] MEDS: FERROUS SULFATE 325 MG TAB PO SCH (08:56)
[2016-11-03] MEDS: INSULIN LISPRO (humaLOG) 300 UNIT/3 ML VIAL SQ SCH ×2 (08:56→12:03)
[2016-11-03] MEDS: HYDROcodone/APAP 5-325MG 1 EACH TAB PO PRN (09:00)
[2016-11-03] MEDS: INSULN ASP PRT/INSULIN ASPART 100 UNIT/ML 10 ML VIAL SQ SCH (09:01)
[2016-11-03 11:29] VITALS: BP 90/60; PULSE 55; TEMP 98.6
[2016-11-03 11:56] LABS: Glucose,Whole Blood 102 mg/dL (75-99)
--- NOTE | 2016-11-03 13:08 | PN ---
This lady came in yesterday with chest pain syndrome, squeezing sensation. Her troponins are normal. The pain appears to be more or less radiating more to the back where she has a chronic back pain. She is comfortable, resting, ambulating without symptoms. Vital signs are stable S1 and S2 heard normally. Lungs are clear. Abdomen and lower extremity exam unchanged. Plan is to increase activity. Discharge her and she will see Dr. Brandyn Cuevas in the office or she will see me in 1 to 2 weeks. I discussed this with the patient. She can be discharged today.
--- NOTE | 2016-11-04 17:26 | DS ---
DATE OF ADMISSION: 11/01/2016 DATE OF DISCHARGE: 11/03/2016 HOSPITAL COURSE: Hortencia Mcpherson is a 76-year-old female with a past medical history of chronic low back and morbid obesity, hypertension, type 2 diabetes mellitus, paroxysmal atrial fibrillation admitted to the hospital with a chief complaint of chest heaviness. The patient was having substernal chest heaviness which was increasing in nature that was radiating to the left jaw and left arm. The patient was admitted to rule out acute coronary syndrome. The patient had serial troponins and EKGs and was monitored for 48 hours. EKG and troponins have been within normal limits. Cardiology was on board and Dr. Precious Cuevas evaluated the patient and did not plan for any intervention at this admission. He cleared the patient be discharged home and to have follow-up with him in 3 to 4 weeks. The patient is being discharged home today. No changes made in her medications. The patient was started on losartan during her hospital stay, but as her blood pressure dropped to as low as 90/60 we will not be sending her on losartan. She is advised to follow up with PCP and air pollution specialist, regarding restarting medication. DISCHARGE DIAGNOSES: 1. Atypical chest pain. 2. Hypertension. 3. Type 2 diabetes mellitus. 4. History of paroxysmal atrial fibrillation. 5. History of chronic low back pain. 6. Morbid obesity with BMI of 47.6. 7. History of previous back surgeries and lumbar spine surgeries. DISCHARGE MEDICATIONS: 1. Novolin 70/30 20 units in the morning. 2. Actos 30 mg p.o. in the morning. 3. Glipizide XL 10 mg p.o. in the morning. 4. Ferrous sulfate 320 mg p.o. daily. 5. Metoprolol 50 mg p.o. b.i.d. 6. Aspirin 81 mg p.o. q.h.s. 7. Zocor 40 mg p.o. daily. 8. Coumadin 5 mg p.o. at bedtime. The patient's Coumadin has been on hold during the hospital stay, but she was advised to take her 5 mg of Coumadin from tonight as per cardio recommendations. Activity as tolerated. DIET: Diabetic diet. Follow-up: The patient is advised to follow up with her PCP, Dr. Rox Parmar in 1 to [address] Precious Cuevas in two weeks. Patient is being discharged home. More than 35 minutes spent with the discharge of the patient. LYN
== END 2016-11-03 14:36 | disposition home or self-care (01) ==
LOC: EC 17:00 → 3OBS 20:12
PROVIDERS: ADMIT Internal Medicine; ATTEND Internal Medicine
DX: R07.89 Other chest pain (principal); I10 Essential (primary) hypertension; E11.9 Type 2 diabetes mellitus without complications; I48.0 Paroxysmal atrial fibrillation; G89.29 Other chronic pain; M54.5 Low back pain; E66.01 Morbid (severe) obesity due to excess calories; Z68.42 Body mass index [BMI] 45.0-49.9, adult; E78.00 Pure hypercholesterolemia, unspecified; E78.5 Hyperlipidemia, unspecified; E87.5 Hyperkalemia; J84.10 Pulmonary fibrosis, unspecified; J98.11 Atelectasis; Z79.01 Long term (current) use of anticoagulants; Z79.82 Long term (current) use of aspirin; Z79.899 Other long term (current) drug therapy; Z88.1 Allergy status to other antibiotic agents; Z88.5 Allergy status to narcotic agent; R06.02 Shortness of breath; R00.2 Palpitations; R05 Cough; R60.9 Edema, unspecified; Z79.4 Long term (current) use of insulin; Z79.84 Long term (current) use of oral hypoglycemic drugs; R61 Generalized hyperhidrosis
CPT/HCPCS: 96374 ×2; 96375 ×2; 99285 ×2; 36415; 93005 ×2; 93306; 85379; 83880; 80061; 80053; 83036; 82550 ×2; 82553 ×2; 83735; 84484 ×2; 85025; 85610 ×2; 85730; 87040; 71020; G0378 ×3; J2270; J1940 ×3; J2405; J1170

== ENCOUNTER 2016-11-06 08:19 | Observation (INO) | payer MEDICARE ==
[2016-11-06] MEDS ORDERED: MORPHINE SULFATE 4 MG/ML SYRINGE IV STA (09:55)
--- NOTE | 2016-11-06 09:57 | ED ---
General Adult HPI <Jigar Niteo - Last Filed: 11/06/16 11:37> - General Source: patient, RN notes reviewed Mode of arrival: wheelchair Limitations: no limitations <Harris Guerra - Last Filed: 11/06/16 11:57> - General Chief complaint: Neck Pain/Injury Stated complaint: Chest , neck and back pain Time Seen by Provider: 11/06/16 09:47 - History of Present Illness Initial comments: Patient 76-year-old female who presents emergency room today with a chief complaint of increased neck, back pain, chest pain. Patient does admit that she was seen and admitted here at the hospital a week ago for the symptoms. States she was discharged home. States she's been taking [place] for the pain with little relief. States that she's noticed that the pain is worse with movement and on exertion. She states she was doing the dishes yesterday and had increased pain in her back and neck. States worsen the pain is currently in the left side of her neck which is worse with movements and rotation. Denies any injury or trauma. Admits that it does cause her to have some chest pain. She does admit some mild chest discomfort currently. She denies any other complaints or symptoms. Patient denies any recent fever, chills, abdominal pain, nausea or vomiting, numbness or tingling, dysuria or hematuria, constipation or diarrhea, headaches or visual changes, or any other complaints. (Harris Guerra) - Related Data Home Medications Medication Instructions Recorded Confirmed Insulin Aspart Protam & Aspart 20 unit SQ QAM 06/13/14 11/06/16 [NovoLOG MIX 70-30 Flexpen] Pioglitazone [Actos] 30 mg PO QAM 06/13/14 11/06/16 glipiZIDE XL [Glucotrol XL] 10 mg PO QAM 06/13/14 11/06/16 Ferrous Sulfate [Feosol] 325 mg PO DAILY 06/18/16 11/06/16 Metoprolol Tartrate [Lopressor] 50 mg PO BID 06/18/16 11/06/16 Allergy Tab(Unknown) 1 tab PO DAILY PRN 11/01/16 11/06/16 Aspirin EC [Ecotrin Low Dose] 81 mg PO HS 11/01/16 11/06/16 Simvastatin [Zocor] 40 mg PO DAILY 11/01/16 11/06/16 Warfarin [Coumadin] 5 mg PO HS 11/01/16 11/06/16 Allergies Allergy/AdvReac Type Severity Reaction Status Date / Time tetracycline Allergy Unknown Verified 11/06/16 09:39 fentanyl AdvReac "SKIN Verified 11/06/16 09:39 CRAWLS", HYPER Review of Systems ROS Other: All systems not noted in ROS Statement are negative. <Jigar Nieto - Last Filed: 11/06/16 11:37> ROS Other: All systems not noted in ROS Statement are negative. <Harris Guerra - Last Filed: 11/06/16 11:57> ROS Statement: Those systems with pertinent positive or pertinent negative responses have been documented in the HPI. Past Medical History Past Medical History: Atrial Fibrillation, Hyperlipidemia, Hypertension, Pneumonia Additional Past Medical History / Comment(s): POST OP INFECTION AFTER BACK SURGERY. UPPER BRIDGE, UTI, CHRONIC BACK PAIN, FROM FX. PERIPHERAL LEG EDEMA.T8 FX. ARTHRITIS History of Any Multi-Drug Resistant Organisms: None Reported Past Surgical History: Back Surgery, Cholecystectomy, Orthopedic Surgery Additional Past Surgical History / Comment(s): LUMBAR SURGERY, 2015. FX NOSE REPAIR. BILATERAL CATARACT SURGERY. R WRIST CARPAL TUNNEL SURGERY, kyphoplasty T8 ON 06/26/16 AND ONE BEFORE. Past Anesthesia/Blood Transfusion Reactions: No Reported Reaction Additional Past Anesthesia/Blood Transfusion Reaction / Comment(s): NEVER HAD A BLOOD TRANSFUSION. Past Psychological History: No Psychological Hx Reported Additional Psychological History / Comment(s): PT LIVES ALONE IN A [place] FLOOR [place]. SHE IS INDEPENDENT. SHE DRIVES A CAR. Smoking Status: Never smoker Past Alcohol Use History: None Reported Past Drug Use History: None Reported - Past Family History Father Family Medical History: Myocardial Infarction ([place]) Additional Family Medical History / Comment(s): FATHER AT AGE 52 OF AN [place] Mother Additional Family Medical History / Comment(s): MOTHER AT AGE 89 OF CELEBREX PROBLEM. <Harris Guerra - Last Filed: 11/06/16 11:57> General Exam <Jigar Nieto - Last Filed: 11/06/16 11:37> Limitations: no limitations <Harris Guerra - Last Filed: 11/06/16 11:57> - General Exam Comments Initial Comments: General: The patient is awake and alert, in no distress, and does not appear acutely ill. Eye: Pupils are equal, round and reactive to light, extra-ocular movements are intact. No nystagmus. There is normal conjunctiva bilaterally. No signs of icterus. Ears, nose, mouth and throat: There are moist mucous membranes and no oral lesions. Neck: The neck is supple, there is no tenderness or JVD. Cardiovascular: There is a regular rate and rhythm. No murmur, rub or gallop is appreciated. Respiratory: Lungs are clear to auscultation, respirations are non-labored, breath sounds are equal. No wheezes, stridor, rales, or rhonchi. Gastrointestinal: Soft, non-distended, non-tender abdomen without masses or organomegaly noted. There is no rebound or guarding present. No CVA tenderness. Bowel sounds are unremarkable. Musculoskeletal: Full range of motion. Normal appearance of cervical, thoracic , lumbar spine. No step-offs forms appreciated. No tenderness over the spinous processes. Patient does have paravertebral tenderness to left side of the cervical spine. Strength 5/5. Sensation intact. Pulses equal bilaterally 2+ . Neurological: A&O x 3. CN II-XII intact, There are no obvious motor or sensory deficits. Coordination appears grossly intact. Speech is normal. Skin: Skin is warm and dry and no rashes or lesions are noted. Psychiatric: Cooperative, appropriate mood & affect, normal judgment. (Harris Guerra) Course <Jigar Nieto - Last Filed: 11/06/16 11:37> <Harris Guerra - Last Filed: 11/06/16 11:57> Vital Signs 11/06/16 11/06/16 11/06/16 08:33 10:59 11:29 Temperature 97.8 F Pulse Rate 63 58 L 61 Respiratory 20 18 20 Rate Blood Pressure 165/64 131/63 147/74 O2 Sat by Pulse 95 99 100 Oximetry - Reevaluation(s) Reevaluation #1: 11/06/16 11:37 Patient reevaluated by myself, Dr. Nieto. Patient resting comfortably in bed at this time. Patient states she did have similar symptoms to previous admission and they have been fairly consistent for the past 4 days. Previous charting had concerns for catheterization of patient had continued symptoms for Dr. Cuevas. Case discussed with Dr. Fall, who will admit for Dr. Holt. ( Jigar Nieto) Medical Decision Making - Lab Data Result diagrams: 11/06/16 10:07 11/06/16 10:07 <Jigar Nieto - Last Filed: 11/06/16 11:37> - Lab Data Result diagrams: 11/06/16 10:07 11/06/16 10:07 <Harris Guerra - Last Filed: 11/06/16 11:57> - Medical Decision Making Patient's x-rays reviewed shows degenerative changes. Acute fracture or dislocations. Chest x-ray negative. EKG shows normal sinus rhythm. Patient admits to progressive angina. Patient had recent admission and was scheduled to outpatient stress test. Case was discussed with her physician Dr. Nieto. Patient will be admitted with consult from cardiology. (Harris Guerra) - Lab Data Lab Results 11/06/16 11/06/16 11/06/16 Range/Units 10:07 10:07 10:07 WBC 5.1 (3.8-10.6) k/uL RBC 3.71 L (3.80-5.40) m/uL Hgb 11.8 (11.4-16.0) gm/dL Hct 38.0 (34.0-46.0) % MCV 102.5 H (80.0-100.0) fL MCH 31.9 (25.0-35.0) pg MCHC 31.2 (31.0-37.0) g/dL RDW 15.3 (11.5-15.5) % Plt Count 190 (150-450) k/uL Neutrophils % 74 % Lymphocytes % 14 % Monocytes % 6 % Eosinophils % 2 % Basophils % 1 % Neutrophils # 3.8 (1.3-7.7) k/uL Lymphocytes # 0.7 L (1.0-4.8) k/uL Monocytes # 0.3 (0-1.0) k/uL Eosinophils # 0.1 (0-0.7) k/uL Basophils # 0.0 (0-0.2) k/uL Hypochromasia Moderate Macrocytosis Slight PT 25.0 H (9.0-12.0) sec INR 2.6 (<1.1) APTT 27.7 (22.0-30.0) sec Sodium 146 H (137-145) mmol/L Potassium 3.9 (3.5-5.1) mmol/L Chloride 110 H (98-107) mmol/L Carbon Dioxide 25 (22-30) mmol/L Anion Gap 11 mmol/L BUN 22 H (7-17) mg/dL Creatinine 0.89 (0.52-1.04) mg/dL Est GFR (MDRD) Af Amer >60 (>60 ml/min/1.73 sqM) Est GFR (MDRD) Non-Af >60 (>60 ml/min/1.73 sqM) Glucose 68 L (74-99) mg/dL Calcium 9.5 (8.4-10.2) mg/dL Magnesium 2.1 (1.6-2.3) mg/dL Total Bilirubin 1.0 (0.2-1.3) mg/dL AST 23 (14-36) U/L ALT 23 (9-52) U/L Alkaline Phosphatase 76 (38-126) U/L Total Creatine Kinase (30-135) U/L CK-MB (CK-2) (0.0-2.4) ng/mL CK-MB (CK-2) Rel Index Troponin I (0.000-0.034) ng/mL Total Protein 7.2 (6.3-8.2) g/dL Albumin 4.2 (3.5-5.0) g/dL 11/06/16 Range/Units 10:07 WBC (3.8-10.6) k/uL RBC (3.80-5.40) m/uL Hgb (11.4-16.0) gm/dL Hct (34.0-46.0) % MCV (80.0-100.0) fL MCH (25.0-35.0) pg MCHC (31.0-37.0) g/dL RDW (11.5-15.5) % Plt Count (150-450) k/uL Neutrophils % % Lymphocytes % % Monocytes % % Eosinophils % % Basophils % % Neutrophils # (1.3-7.7) k/uL Lymphocytes # (1.0-4.8) k/uL Monocytes # (0-1.0) k/uL Eosinophils # (0-0.7) k/uL Basophils # (0-0.2) k/uL Hypochromasia Macrocytosis PT (9.0-12.0) sec INR (<1.1) APTT (22.0-30.0) sec Sodium (137-145) mmol/L Potassium (3.5-5.1) mmol/L Chloride (98-107) mmol/L Carbon Dioxide (22-30) mmol/L Anion Gap mmol/L BUN (7-17) mg/dL Creatinine (0.52-1.04) mg/dL Est GFR (MDRD) Af Amer (>60 ml/min/1.73 sqM) Est GFR (MDRD) Non-Af (>60 ml/min/1.73 sqM) Glucose (74-99) mg/dL Calcium (8.4-10.2) mg/dL Magnesium (1.6-2.3) mg/dL Total Bilirubin (0.2-1.3) mg/dL AST (14-36) U/L ALT (9-52) U/L Alkaline Phosphatase (38-126) U/L Total Creatine Kinase 99 (30-135) U/L CK-MB (CK-2) <0.2 (0.0-2.4) ng/mL CK-MB (CK-2) Rel Index Troponin I 0.013 (0.000-0.034) ng/mL Total Protein (6.3-8.2) g/dL Albumin (3.5-5.0) g/dL Disposition <Jigar Nieto - Last Filed: 11/06/16 11:37> Time of Disposition: 11:37 <Harris Guerra - Last Filed: 11/06/16 11:57> Clinical Impression: Atypical chest pain, Neck pain, Back pain Disposition: ADMITTED IP TO THIS [facility] Condition: Stable
[2016-11-06 10:32] LABS: Basophils % (A) 1 %; CH 30.9; CHCM 30.4; Eosinophils # (A) 0.1 k/uL (0-0.7); Eosinophils % (A) 2 %; HDW 2.25; HGB 11.8 gm/dL (11.4-16.0); Hypochromasia Moderate; Luc # (Auto) 0.14; Luc % (Auto) 3; Lymphocytes # (A) 0.7 k/uL (1.0-4.8); Lymphocytes % (A) 14 %; MCH 31.9 pg (25.0-35.0); MCHC 31.2 g/dL (31.0-37.0); MCV 102.5 fL (80.0-100.0); Macrocytosis Slight; Mean Platelet Volume 7.4; Monocytes # (A) 0.3 k/uL (0-1.0); Monocytes % (A) 6 %; Neutrophils # (A) 3.8 k/uL (1.3-7.7); Neutrophils % (A) 74 %; RBC 3.71 m/uL (3.80-5.40); RDW 15.3 % (11.5-15.5); WBC 5.1 k/uL (3.8-10.6)
[2016-11-06 10:35] LABS: INR 2.6 (<1.1); Partial Thromboplastin Time 27.7 sec (22.0-30.0)
[2016-11-06 10:44] LABS: ALT 23 U/L (9-52); AST 23 U/L (14-36); Alkaline Phosphatase 76 U/L (38-126); Anion Gap 11 mmol/L; Blood Urea Nitrogen 22 mg/dL (7-17); Calcium 9.5 mg/dL (8.4-10.2); Carbon Dioxide 25 mmol/L (22-30); Chloride 110 mmol/L (98-107); Glucose 68 mg/dL (74-99); Magnesium 2.1 mg/dL (1.6-2.3); Non-African American GFR(MDRD) >60 (>60 ml/min/1.73 sqM); Potassium 3.9 mmol/L (3.5-5.1); Sodium 146 mmol/L (137-145); Total Protein 7.2 g/dL (6.3-8.2)
--- NOTE | 2016-11-06 10:47 | XR ---
EXAMINATION TYPE: XR chest 2V DATE OF EXAM: 11/06/2016 10:42 AM COMPARISON: Prior chest x-ray November 01, 2016 HISTORY: Chest pain and shortness of breath. TECHNIQUE: Frontal and lateral views of the chest are obtained. FINDINGS: There is linear scarring or atelectasis in the lateral left lower lung redemonstrated. Unde rlying emphysematous change is felt present on lateral view. There is no new focal air space opacity, pleural effusion, or pneumothorax seen. The cardiac silhouette size is stable and enlarged. Vertebr oplasty in lower thoracic spine is present at 2 levels extension into superior disc space is again se en. Demineralization is seen. There is old fracture deformity right proximal humerus. Cholecystectomy clips are redemonstrated on lateral view. Old right posterior mid rib fractures are noted. IMPRESSION: Chronic changes and cardiomegaly without acute pulmonary process.
--- NOTE | 2016-11-06 11:00 | XR ---
EXAMINATION TYPE: XR cervical spine limited DATE OF EXAM: 11/06/2016 10:42 AM TECHNIQUE: Frontal, lateral, swimmers, and open mouth view of the cervical spine are obtained. HISTORY: Pain pain for several weeks. COMPARISON: None FINDINGS: The cervical spine is visualized in its entirety from C1 thru the top of T1 level, it is s atisfactory in alignment without evidence of acute fracture or dislocation. The pre-vertebral soft t issue appears within normal limits. The C1-C2 articulation is within normal limits on the open mouth view. Vertebral body heights are maintained. There is moderate disc space narrowing and spurring C5-C6 leve ls. Osseous structures are somewhat demineralized. Overlying soft tissue is unremarkable. IMPRESSION: No acute fracture or dislocation is seen in the cervical spine. Demineralization with mo derate degenerative changes C5-C6 level noted.
[2016-11-06 11:04] LABS: Creatine Kinase 99 U/L (30-135)
[2016-11-06 11:16] LABS: Creatine Kinase MB <0.2 ng/mL (0.0-2.4); Troponin I 0.013 ng/mL (0.000-0.034)
[2016-11-06] MEDS ORDERED: NITROGLYCERIN SL TABS 0.4 MG TAB SUBLINGUAL PRN (11:58)
[2016-11-06] MEDS ORDERED: SODIUM CHLORIDE 0.9% 1,000 ML IV ONE (11:58)
[2016-11-06 12:38] LABS: Glucose,Whole Blood 71 mg/dL (75-99)
[2016-11-06] MEDS: MORPHINE SULFATE 4 MG/ML SYRINGE IV PRN ×2 (14:03→20:39)
[2016-11-06 14:22] LABS: Glucose,Whole Blood 134 mg/dL (75-99)
[2016-11-06 16:41] LABS: Glucose,Whole Blood 114 mg/dL (75-99)
[2016-11-06 17:01] LABS: Creatine Kinase 82 U/L (30-135)
[2016-11-06 17:16] LABS: Creatine Kinase MB <0.2 ng/mL (0.0-2.4); Troponin I <0.012 ng/mL (0.000-0.034)
--- NOTE | 2016-11-06 18:28 | P.HPIM ---
History of Present Illness H&P Date: 11/06/16 76-year-old female with history of moderate pulmonary hypertension, obesity was recently the hospital for atypical chest pain comes in the hospital with the progressively worsening of difficulty breathing and pain in her neck. Her main complaints are pain in her neck with the associated spasms that are worsened with movement of her neck. Patient denies having any headaches, blurry vision, nausea, vomiting, neck stiffness. States that she also has noted some numbness in her left arm associated with this pain. And it also has been progressively getting worse over the last few weeks to months. Patient underwent multiple x-rays however there is no significant abnormalities noted other than some degenerative changes. Patient was recently in the hospital underwent a stress test for atypical chest pain which was negative. Patient does have a history of atrial fibrillation is currently on anticoagulation. Patient does have a history of a right ventricular systolic pressure greater than 50 mm hg. Currently states her main complaints are pain down her spine she does have a history of lumbar surgery in July. However her symptoms in the neck are her primary concern at this time denies having any fevers chills nausea vomiting or diarrhea at this time. Review of Systems All systems: negative (Noted in HPI) Past Medical History Past Medical History: Atrial Fibrillation, Chest Pain / Angina, Diabetes Mellitus, Hyperlipidemia, Hypertension, Osteoarthritis (OA), Pneumonia Additional Past Medical History / Comment(s): Paroxysmal Afib, POST OP INFECTION AFTER BACK SURGERY, CHRONIC BACK PAIN FROM T8 FX, difficulty walking d/t back pain, CHRONIC PERIPHERAL LEG EDEMA, UTIs, R humerus fracture. History of Any Multi-Drug Resistant Organisms: None Reported Past Surgical History: Back Surgery, Cholecystectomy, Orthopedic Surgery Additional Past Surgical History / Comment(s): 2015 LUMBAR SURGERY, FX NOSE REPAIR, BILATERAL CATARACT SURGERY, R WRIST CARPAL TUNNEL SURGERY, kyphoplasty T8 ON 06/26/16 AND ONE BEFORE. Past Anesthesia/Blood Transfusion Reactions: No Reported Reaction Additional Past Anesthesia/Blood Transfusion Reaction / Comment(s): NEVER HAD A BLOOD TRANSFUSION. Past Psychological History: No Psychological Hx Reported Additional Psychological History / Comment(s): PT LIVES ALONE IN A [place] FLOOR [place]. SHE IS INDEPENDENT. SHE DRIVES A CAR. Smoking Status: Never smoker Past Alcohol Use History: None Reported Past Drug Use History: None Reported - Past Family History Father Family Medical History: Myocardial Infarction ([place]) Additional Family Medical History / Comment(s): FATHER AT AGE 52 OF AN [place] Mother Additional Family Medical History / Comment(s): MOTHER AT AGE 89 OF CELEBREX PROBLEM. Medications and Allergies Home Medications Medication Instructions Recorded Confirmed Type Insulin Aspart Protam & Aspart 20 unit SQ QAM 06/13/14 11/06/16 History [NovoLOG MIX 70-30 Flexpen] Pioglitazone [Actos] 30 mg PO QAM 06/13/14 11/06/16 History glipiZIDE XL [Glucotrol XL] 10 mg PO QAM 06/13/14 11/06/16 History Ferrous Sulfate [Feosol] 325 mg PO DAILY 06/18/16 11/06/16 History Metoprolol Tartrate [Lopressor] 50 mg PO BID 06/18/16 11/06/16 History Allergy Tab(Unknown) 1 tab PO DAILY PRN 11/01/16 11/06/16 History Aspirin EC [Ecotrin Low Dose] 81 mg PO HS 11/01/16 11/06/16 History Simvastatin [Zocor] 40 mg PO DAILY 11/01/16 11/06/16 History Warfarin [Coumadin] 5 mg PO HS 11/01/16 11/06/16 History Allergies Allergy/AdvReac Type Severity Reaction Status Date / Time tetracycline Allergy Unknown Verified 11/06/16 09:39 fentanyl AdvReac "SKIN Verified 11/06/16 09:39 CRAWLS", HYPER Physical Exam Vitals: Vital Signs Temp Pulse Pulse Resp BP BP Pulse Ox 11/06/16 16:00 97.0 F L 65 18 133/61 98 11/06/16 12:53 96.9 F L 64 16 189/115 100 11/06/16 12:23 98 F 60 16 148/68 98 Intake and Output 11/06/16 11/06/16 11/06/16 06:59 14:59 22:59 Intake Total 240 Balance 240 Intake: Oral 240 Other: Weight 130.5 kg Patient Weight 11/07/16 06:59 Weight 130.5 kg Physical exam Gen. appearance oriented 3 in no distress Neck is supple no JVD Lungs good air entry clear to auscultation no rhonchi or wheezing Heart S1-S2 heard regular rate and rhythm no murmurs appreciated Abdomen is soft nontender no organomegaly bowel sounds are intact Neurologically cranial nerves II-12 grossly intact no focal motor or sensory deficits noted Musculoskeletal paracervical muscle spasms tenderness diffusely there is some midline tenderness around C6-C7 Skin no abnormalities appreciated Results CBC & Chem 7: 11/06/16 10:07 11/06/16 10:07 Labs: Abnormal Lab Results - Last 24 Hours (Table) 11/06/16 11/06/16 11/06/16 Range/Units 12:36 14:13 16:40 POC Glucose (mg/dL) 71 L 134 H 114 H (75-99) mg/dL Thrombosis Risk Factor Assmnt - Choose All That Apply Any of the Below Risk Factors Present?: Yes Each Factor Represents 1 point: Obesity (BMI >25), Swollen legs (current) Other Risk Factors: Yes Each Risk Factor Represents 2 Points: Age 61-74 years Other congenital or acquired thrombophilia - If yes, enter type in comment: No Thrombosis Risk Factor Assessment Total Risk Factor Score: 4 Thrombosis Risk Factor Assessment Level: Moderate Risk Assessment and Plan Plan: #1 musculoskeletal type of cervical pain likely secondary to muscle spasms. #2 hypernatremia likely hypovolemic #3 moderate pulmonary hypertension #4 history of atrial fibrillation currently on anticoagulation #5 obesity #6 diabetes most type II #7 history of hypertension #8 remote history of tobacco use #9 chronic venous stasis in her lower extremities #10 clinical sleep apnea Plan We'll start the patient on amlodipine 5 mg. Patient will be given some IV fluid. Repeat labs name. MRI of the C-spine will be done as patient does have some symptoms of numbness in her left arm. If positive thereafter will refer to her neurosurgeon. We'll also start the patient on Flexeril. Patient will likely need a sleep study as well.
--- NOTE | 2016-11-06 20:24 | MR ---
EXAMINATION TYPE: MR cervical spine wo/w con DATE OF EXAM: 11/06/2016 8:15 PM COMPARISON: NONE HISTORY: Neck pain/lt arm pain, weakness, SOB, chest pain TECHNIQUE: Multiplanar, multisequence images of the cervical spine were acquired utilizing 20 mL intravenous Mul tiHance gadolinium contrast. Diffusion weighted imaging was performed. C2-C3: No evidence for degenerative disc disease. No disc bulge/herniation or protrusion. No Canal stenosis. Foramina are patent bilaterally. C3-C4: No evidence for degenerative disc disease. No disc bulge/herniation or protrusion. No Canal stenosis. Foramina are patent bilaterally. C4-C5: No evidence for degenerative disc disease. No disc bulge/herniation or protrusion. No Canal stenosis. Foramina are patent bilaterally. C5-C6: There is evidence of severe disc desiccation. Circumferential disc bulge with effacement of th e ventral thecal sac. There is no evidence of cord contact or central stenosis. No evidence for mauro disc herniation. Degenerative change of the cervical apophyseal joints resulting in mild bilateral f oraminal encroachment left slightly greater than right. C6-C7: There is evidence of mild disc desiccation and a mild broad-based posterior disc bulge. Minima l effacement of the ventral thecal sac. No herniation protrusion or central stenosis. Mild bilateral foraminal encroachment. C7-T1: No evidence for degenerative disc disease. No disc bulge/herniation or protrusion. No Canal stenosis. Foramina are patent bilaterally. Cervical segments are intact. There is normal alignment. Cervical spinal cord is of normal signal. Craniovertebral junction relationships are within normal limits. Incidental T2 hemangioma. No evide nce for pathologic enhancement. IMPRESSION: 1. Degenerative disc disease as discussed. 2. Disc bulging C5-6 and C6-7 as discussed above with foraminal encroachment.
[2016-11-06] MEDS: amLODIPine 5 MG TAB PO SCH (20:38)
[2016-11-06] MEDS: METOPROLOL TARTRATE 50 MG TAB PO SCH (20:38)
[2016-11-06] MEDS: CYCLOBENZAPRINE 5 MG TAB PO PRN (20:39)
[2016-11-06] MEDS ORDERED: WARFARIN 5 MG TAB PO SCH (21:00)
[2016-11-06] MEDS ORDERED: ASPIRIN 81 MG CHEW PO SCH (21:00)
[2016-11-06 23:22] LABS: Creatine Kinase 69 U/L (30-135)
[2016-11-06 23:36] LABS: Creatine Kinase MB <0.2 ng/mL (0.0-2.4); Troponin I <0.012 ng/mL (0.000-0.034)
--- NOTE | 2016-11-07 07:08 | XR ---
EXAMINATION TYPE: XR chest 2V DATE OF EXAM: 11/07/2016 6:33 AM COMPARISON: 11/06/2016 HISTORY: Shortness of breath TECHNIQUE: Frontal and lateral views of the chest are obtained. FINDINGS: Scattered senescent parenchymal changes noted. Hyperinflation compatible with COPD. No evidence for infiltrate. No evidence for atelectasis. Heart size is mildly enlarged. Pulmonary venous congestion without overt failure. Mediastinal structures are stable and grossly unremarkable. No evidence for hilar prominence. Degenerative changes dorsal spine. IMPRESSION: 1. No evidence for acute pulmonary disease.Heart size is mildly enlarged. Pulmonary venous congestion without overt failure.
[2016-11-07] MEDS ORDERED: INSULN ASP PRT/INSULIN ASPART 100 UNIT/ML 10 ML VIAL SQ SCH (07:30)
[2016-11-07] MEDS: MORPHINE SULFATE 4 MG/ML SYRINGE IV PRN (07:50)
[2016-11-07 07:55] LABS: Basophils % (A) 0 %; CH 30.6; CHCM 30.5; Eosinophils # (A) 0.2 k/uL (0-0.7); Eosinophils % (A) 5 %; HCT 35.3 % (34.0-46.0); HDW 2.26; HGB 10.8 gm/dL (11.4-16.0); Hypochromasia Slight; Luc # (Auto) 0.13; Luc % (Auto) 4; Lymphocytes # (A) 0.9 k/uL (1.0-4.8); Lymphocytes % (A) 26 %; MCH 30.9 pg (25.0-35.0); MCHC 30.5 g/dL (31.0-37.0); Macrocytosis Slight; Mean Platelet Volume 7.6; Monocytes # (A) 0.2 k/uL (0-1.0); Monocytes % (A) 6 %; Neutrophils # (A) 2.2 k/uL (1.3-7.7); Neutrophils % (A) 60 %; RBC 3.49 m/uL (3.80-5.40); RDW 15.2 % (11.5-15.5); WBC 3.6 k/uL (3.8-10.6); WBC (Perox) 3.76
[2016-11-07 08:00] LABS: ALT 31 U/L (9-52); AST 19 U/L (14-36); Alkaline Phosphatase 80 U/L (38-126); Anion Gap 7 mmol/L; Blood Urea Nitrogen 19 mg/dL (7-17); Calcium 9.4 mg/dL (8.4-10.2); Carbon Dioxide 30 mmol/L (22-30); Chloride 108 mmol/L (98-107); Cholesterol 132 mg/dL (<200); Glucose 132 mg/dL (74-99); HDL Cholesterol 65 mg/dL (40-60); Non-African American GFR(MDRD) >60 (>60 ml/min/1.73 sqM); Potassium 4.5 mmol/L (3.5-5.1); Sodium 145 mmol/L (137-145); Total Bilirubin 1.1 mg/dL (0.2-1.3); Total Protein 6.4 g/dL (6.3-8.2); Triglycerides 81 mg/dL (<150)
[2016-11-07 08:10] VITALS: RESP 18
[2016-11-07] MEDS ORDERED: ASPIRIN 325 MG TAB PO SCH (09:00)
[2016-11-07] MEDS ORDERED: ATORVASTATIN 20 MG TAB PO SCH (09:00)
[2016-11-07] MEDS ORDERED: FERROUS SULFATE 325 MG TAB PO SCH (09:00)
[2016-11-07] MEDS ORDERED: glipiZIDE 5 MG TAB PO SCH (09:00)
[2016-11-07 09:29] LABS: Glucose,Whole Blood 125 mg/dL (75-99)
[2016-11-07] MEDS: METOPROLOL TARTRATE 50 MG TAB PO SCH (09:29)
[2016-11-07] MEDS: amLODIPine 5 MG TAB PO SCH (09:29)
--- NOTE | 2016-11-07 10:15 | CONS ---
DATE OF CONSULTATION: This lady was seen by me about 5 to 6 days ago when she was here during the weekend and she had mostly neck and cervical pain and also had on this admission an MRI of the cervical spine and there is evidence of degenerative disc disease with disc bulging at C5, C6 and C7. She has some radicular type pain to the anterior chest. The quality of the pain seems to be musculoskeletal. Whenever she moves around and walks around she has discomfort. I have been asked to see her for possibly chest discomfort, but her chest pain seems to be more or less coming from the neck with some radiation to the anterior chest. I evaluated her on November 02 and at that time she had neck and back pain hypertension, diabetes, hyperlipidemia and paroxysmal atrial fibrillation. She has had previous back and lumbar spine surgery as well. However, she did not have any further chest pain and I discharged her with the understanding that her pain was atypical and she was supposed to follow up in the office. However, before she would make the office visit she came back to the hospital here and a C-spine MRI clearly suggests degenerative disc disease as the main issue. Her troponins are normal. She is resting comfortably. EKG yesterday morning revealed sinus mechanism without any acute changes. Please refer to my detailed history and physical and other information within the last one week. On examination, blood pressure is 150/70, pulse rate is 68 per minute, sinus. HEENT unremarkable. Fundus was not examined by me. Neck is supple. There is no JVD. I do not hear any carotid bruit. Heart exam reveals S1 and S2 heard normally. There is a short systolic murmur at the base. Rhythm is regular. Lungs are clear. ABDOMEN: Soft, nontender. Lower extremities reveal normal pulses. No edema. Central nervous system is grossly within normal limits. IMPRESSION: 1. Radiating pain from the neck to the anterior chest and shoulders, not suggestive of angina, negative troponins. 2. Cervical radiculopathy with degenerative disc disease. 3. Hypertension. 4. Type 2 diabetes mellitus. 5. Paroxysmal atrial fibrillation, well anticoagulated. RECOMMENDATIONS: I am recommending that she should see a neurosurgeon for her cervical spine pain, but I do not believe any intervention for the heart is necessary at this time. Initially I contemplated stopping heparin and considering cardiac catheterization, but based on the MRI information and her symptomatology, I think we will have her see a neurosurgeon and no further intervention necessary from cardiac standpoint at this time. Thank you very much for the consult.
[2016-11-07 10:27] VITALS: BMI 46.4
[2016-11-07] MEDS: FUROSEMIDE 10 MG/ML 2 ML VIAL IV SCH ×2 (11:46→14:54)
[2016-11-07 12:18] LABS: Glucose,Whole Blood 164 mg/dL (75-99)
[2016-11-07] MEDS: CYCLOBENZAPRINE 5 MG TAB PO PRN (13:01)
[2016-11-07 13:09] LABS: Hemoglobin A1C 5.6 % (4.2-6.1)
[2016-11-07] MEDS ORDERED: DIAZEPAM 5 MG TAB PO STA ×2 (14:41→15:05)
--- NOTE | 2016-11-07 14:44 | P.DS ---
Providers Date of admission: 11/06/16 11:38 Attending physician: Rodrigo Dietrich Consults: 11/06/16 11:58 Consult Physician Stat Consulting Provider: Mitch Cuevas Consult Reason/Comments: chest pain Do you want consulting provider notified?: Yes Primary care physician: Rox Parmar [facility] Course: 76-year-old female with history of moderate pulmonary hypertension, obesity was recently the hospital for atypical chest pain comes in the hospital with the progressively worsening of difficulty breathing and pain in her neck. Her main complaints are pain in her neck with the associated spasms that are worsened with movement of her neck. Patient denies having any headaches, blurry vision, nausea, vomiting, neck stiffness. States that she also has noted some numbness in her left arm associated with this pain. And it also has been progressively getting worse over the last few weeks to months. Patient underwent multiple x-rays however there is no significant abnormalities noted other than some degenerative changes. Patient was recently in the hospital underwent a stress test for atypical chest pain which was negative. Patient does have a history of atrial fibrillation is currently on anticoagulation. Patient does have a history of a right ventricular systolic pressure greater than 50 mm hg. Currently states her main complaints are pain down her spine she does have a history of lumbar surgery in July. However her symptoms in the neck are her primary concern at this time denies having any fevers chills nausea vomiting or diarrhea at this time. 11/07/2016 Patient continues to have spasms in her neck. Denies having any chest pain breathing appears to be stable no diarrhea reported. Physical exam Gen. appearance oriented 3 in no distress Neck is supple no JVD Lungs good air entry clear to auscultation no rhonchi or wheezing Heart S1-S2 heard regular rate and rhythm no murmurs appreciated Abdomen is soft nontender no organomegaly bowel sounds are intact Neurologically cranial nerves II-12 grossly intact no focal motor or sensory deficits noted Musculoskeletal paracervical muscle spasms tenderness diffusely there is some midline tenderness around C6-C7 Skin no abnormalities appreciated Assessment and Plan Plan: #1 paracervical neck spasms. MRI of the C-spine was done there is some C7 C8 foraminal narrowing without any evidence of nerve impingement. #2 hypernatremia likely hypovolemic #3 moderate pulmonary hypertension #4 history of atrial fibrillation currently on anticoagulation #5 obesity #6 diabetes most type II #7 history of hypertension #8 remote history of tobacco use #9 chronic venous stasis in her lower extremities #10 clinical sleep apnea Plan Discussed weight loss. Patient will be given Valium 10 mg 4 para cervical muscle spasm. Flexeril when necessary And morphine XL 15 mg by mouth twice a day will be started. Patient be given a referral to a pain specialist. attempted change anticoagulation to eliquis He shouldn't will also be given a referral to Dr. Martino out of the [facility] system. Patient Condition at Discharge: Stable Plan - Discharge Summary New Discharge Prescriptions: Apixaban [Eliquis] 5 mg PO BID #60 tab Cyclobenzaprine [Flexeril] 5 mg PO TID PRN #90 tab PRN Reason: Muscle Spasm Diazepam [Valium] 10 mg PO HS #60 tablet Morphine Sulfate ER [Ms Contin] 15 mg PO Q12HR #50 tab amLODIPine [Norvasc] 5 mg PO DAILY #30 tab glipiZIDE [Glucotrol] 5 mg PO BID #60 tab Discharge Medication List Insulin Aspart Protam & Aspart [NovoLOG MIX 70-30 Flexpen] 20 unit SQ QAM [History] Pioglitazone [Actos] 30 mg PO QAM 06/13/14 [History] Ferrous Sulfate [Feosol] 325 mg PO DAILY 06/18/16 [History] Metoprolol Tartrate [Lopressor] 50 mg PO BID 06/18/16 [History] Allergy Tab(Unknown) 1 tab PO DAILY PRN 11/01/16 [History] Aspirin EC [Ecotrin Low Dose] 81 mg PO HS 11/01/16 [History] Simvastatin [Zocor] 40 mg PO DAILY 11/01/16 [History] Apixaban [Eliquis] 5 mg PO BID #60 tab 11/07/16 [Rx] Cyclobenzaprine [Flexeril] 5 mg PO TID PRN #90 tab 11/07/16 [Rx] Diazepam [Valium] 10 mg PO HS #60 tablet 11/07/16 [Rx] Morphine Sulfate ER [Ms Contin] 15 mg PO Q12HR #50 tab 11/07/16 [Rx] amLODIPine [Norvasc] 5 mg PO DAILY #30 tab 11/07/16 [Rx] glipiZIDE [Glucotrol] 5 mg PO BID #60 tab 11/07/16 [Rx] Follow up Appointment(s)/Referral(s): Rox Parmar DO [Primary Care Provider] - 11/12/16 3:00 pm Lupe Cuevas MD [STAFF PHYSICIAN] - 11/20/16 3:00 pm
[2016-11-07] MEDS ORDERED: FUROSEMIDE 20 MG TAB PO SCH (14:45)
[2016-11-07 16:33] VITALS: BP 141/58; PULSE 70; TEMP 98.2
== END 2016-11-07 17:26 | disposition home or self-care (01) ==
LOC: EC 08:19 → 3OBS 11:38
PROVIDERS: ADMIT Hospitalist; ATTEND Hospitalist
DX: R07.89 Other chest pain (principal); M62.838 Other muscle spasm; M50.122 Cervical disc disorder at C5-C6 level with radiculopathy; E87.0 Hyperosmolality and hypernatremia; E11.9 Type 2 diabetes mellitus without complications; E66.9 Obesity, unspecified; E78.5 Hyperlipidemia, unspecified; G47.30 Sleep apnea, unspecified; I10 Essential (primary) hypertension; I27.2 Other secondary pulmonary hypertension; I48.0 Paroxysmal atrial fibrillation; I87.8 Other specified disorders of veins; Z79.899 Other long term (current) drug therapy; Z87.891 Personal history of nicotine dependence; Z79.01 Long term (current) use of anticoagulants; Z79.84 Long term (current) use of oral hypoglycemic drugs; Z79.82 Long term (current) use of aspirin; Z79.4 Long term (current) use of insulin; Z88.1 Allergy status to other antibiotic agents; Z88.5 Allergy status to narcotic agent; R20.0 Anesthesia of skin
CPT/HCPCS: 96374 ×2; 99284 ×2; 96361; 96365; 36415; 93005; 80061; 80053 ×2; 83036; 82550; 82553; 83735; 84484; 85025 ×2; 85610; 85730; 71020 ×2; 72040; 72156; G0378 ×2; J2270 ×2; A9577; 96372

== ENCOUNTER 2017-12-04 14:38 | Inpatient (IN) | payer MEDICARE ==
--- NOTE | 2017-12-04 15:19 | ED ---
General Adult HPI - General Chief complaint: Shortness of Breath Stated complaint: SOB Time Seen by Provider: 12/04/17 14:59 Source: patient, RN notes reviewed, old records reviewed Mode of arrival: wheelchair Limitations: no limitations - History of Present Illness Initial comments: 77-year-old female history diabetes presenting for evaluation of worsening dyspnea. Patient states she has had orthopnea and PND. She's been unable to sleep. She has had some intermittent chest pain although she is not having any pain at the time my evaluation. She is scheduled for heart catheterization later this month. No history of CAD. No history of congestive heart failure. She does report worsening bilateral lower extremity swelling. She also reports mild cough which is nonproductive. No fever or chills. No history of COPD. - Related Data Home Medications Medication Instructions Recorded Confirmed Pioglitazone [Actos] 30 mg PO QAM 06/13/14 12/04/17 Metoprolol Tartrate [Lopressor] 50 mg PO BID 06/18/16 12/04/17 Aspirin EC [Ecotrin Low Dose] 81 mg PO HS 11/01/16 12/04/17 Simvastatin [Zocor] 40 mg PO DAILY 11/01/16 12/04/17 Baclofen 10 - 20 mg PO DAILY PRN 12/04/17 12/04/17 HYDROcodone/APAP 7.5-325MG [[place] 1 tab PO Q6H PRN 12/04/17 12/04/17 7.5-325] Insulin NPL/Insulin Lispro 20 unit SQ DAILY 12/04/17 12/04/17 [humaLOG MIX 75-25 VIAL] Oxybutynin Chloride [Oxybutynin 10 mg PO DAILY 12/04/17 12/04/17 Chloride ER] glipiZIDE XL [Glucotrol Xl] 5 mg PO DAILY 12/04/17 12/04/17 Previous Rx's Medication Instructions Recorded Apixaban [Eliquis] 5 mg PO BID #60 tab 11/07/16 amLODIPine [Norvasc] 5 mg PO DAILY #30 tab 11/07/16 Allergies Allergy/AdvReac Type Severity Reaction Status Date / Time tetracycline Allergy Unknown Verified 12/04/17 15:23 fentanyl AdvReac "SKIN Verified 12/04/17 15:23 CRAWLS", HYPER Review of Systems ROS Statement: Those systems with pertinent positive or pertinent negative responses have been documented in the HPI. ROS Other: All systems not noted in ROS Statement are negative. Past Medical History Past Medical History: Atrial Fibrillation, Chest Pain / Angina, Diabetes Mellitus, Hyperlipidemia, Hypertension, Osteoarthritis (OA), Pneumonia Additional Past Medical History / Comment(s): Paroxysmal Afib, POST OP INFECTION AFTER BACK SURGERY, CHRONIC BACK PAIN FROM T8 FX, difficulty walking d/t back pain, CHRONIC PERIPHERAL LEG EDEMA, UTIs, R humerus fracture. History of Any Multi-Drug Resistant Organisms: None Reported Past Surgical History: Back Surgery, Cholecystectomy, Orthopedic Surgery Additional Past Surgical History / Comment(s): 2015 LUMBAR SURGERY, FX NOSE REPAIR, BILATERAL CATARACT SURGERY, R WRIST CARPAL TUNNEL SURGERY, kyphoplasty T8 ON 06/26/16 AND ONE BEFORE. Past Anesthesia/Blood Transfusion Reactions: No Reported Reaction Additional Past Anesthesia/Blood Transfusion Reaction / Comment(s): NEVER HAD A BLOOD TRANSFUSION. Past Psychological History: No Psychological Hx Reported Smoking Status: Never smoker Past Alcohol Use History: None Reported Past Drug Use History: None Reported - Past Family History Father Family Medical History: Myocardial Infarction (ME) Additional Family Medical History / Comment(s): FATHER AT AGE 52 OF AN ME Mother Additional Family Medical History / Comment(s): MOTHER AT AGE 89 OF CELEBREX PROBLEM. General Exam Limitations: no limitations General appearance: alert, in no apparent distress Head exam: Present: atraumatic, normocephalic Eye exam: Present: normal appearance, PERRL ENT exam: Present: normal exam Neck exam: Present: normal inspection. Absent: tenderness, meningismus Respiratory exam: Present: respiratory distress, wheezes Cardiovascular Exam: Present: regular rate, normal rhythm GI/Abdominal exam: Present: soft. Absent: distended, tenderness Extremities exam: Present: pedal edema Back exam: Present: normal inspection, full ROM Neurological exam: Present: alert, oriented X3, CN II-XII intact. Absent: motor sensory deficit Psychiatric exam: Present: normal affect, normal mood Skin exam: Present: warm, dry, intact. Absent: cyanosis, diaphoretic Course Vital Signs 12/04/17 12/04/17 12/04/17 14:47 15:12 16:06 Temperature 97.8 F Pulse Rate 72 56 L Respiratory 24 22 18 Rate Blood Pressure 147/65 145/66 O2 Sat by Pulse 96 98 Oximetry EKG Findings - EKG Comments: EKG Findings:: EKG: Sinus bradycardia, rate of 59, AR interval 164, QRS duration 76, QTC 427 T-wave inversion in lead 3, no ST segment elevation or depression Medical Decision Making - Medical Decision Making 77-year-old female with worsening dyspnea, orthopnea, and PND. Chest x-ray is obtained, there is cardiomegaly with no mauro pulmonary edema, no pneumonia. Laboratory studies reveal normal white blood cell count, stable hemoglobin, troponin is negative, BNP is elevated 1720. Patient is given Lasix and aspirin in the emergency department. She is artery on anticoagulation. She will be admitted for IV diuresis, echo, and cardiology consultation. Dr. Dietrich has accepted the admission. - Lab Data Result diagrams: 12/04/17 15:07 12/04/17 15:07 Lab Results 12/04/17 12/04/17 12/04/17 Range/Units 15:07 15:07 15:07 WBC 5.1 (3.8-10.6) k/uL RBC 3.76 L (3.80-5.40) m/uL Hgb 11.7 (11.4-16.0) gm/dL Hct 35.9 (34.0-46.0) % MCV 95.5 (80.0-100.0) fL MCH 31.1 (25.0-35.0) pg MCHC 32.6 (31.0-37.0) g/dL RDW 13.9 (11.5-15.5) % Plt Count 199 (150-450) k/uL Neutrophils % 74 % Lymphocytes % 15 % Monocytes % 5 % Eosinophils % 3 % Basophils % 1 % Neutrophils # 3.8 (1.3-7.7) k/uL Lymphocytes # 0.8 L (1.0-4.8) k/uL Monocytes # 0.3 (0-1.0) k/uL Eosinophils # 0.2 (0-0.7) k/uL Basophils # 0.0 (0-0.2) k/uL PT (9.0-12.0) sec INR (<1.2) APTT (22.0-30.0) sec Sodium 147 H (137-145) mmol/L Potassium 4.3 (3.5-5.1) mmol/L Chloride 110 H (98-107) mmol/L Carbon Dioxide 24 (22-30) mmol/L Anion Gap 13 mmol/L BUN 21 H (7-17) mg/dL Creatinine 0.99 (0.52-1.04) mg/dL Est GFR (CKD-EPI)AfAm 65 (>60 ml/min/1.73 sqM) Est GFR (CKD-EPI)NonAf 56 (>60 ml/min/1.73 sqM) Glucose 144 H (74-99) mg/dL Calcium 9.6 (8.4-10.2) mg/dL Magnesium 1.9 (1.6-2.3) mg/dL Total Bilirubin 1.3 (0.2-1.3) mg/dL AST 16 (14-36) U/L ALT 16 (9-52) U/L Alkaline Phosphatase 96 (38-126) U/L Total Creatine Kinase 32 (30-135) U/L CK-MB (CK-2) <0.2 (0.0-2.4) ng/mL CK-MB (CK-2) Rel Index Troponin I <0.012 (0.000-0.034) ng/mL NT-Pro-B Natriuret Pep pg/mL Total Protein 6.5 (6.3-8.2) g/dL Albumin 4.2 (3.5-5.0) g/dL 12/04/17 12/04/17 Range/Units 15:07 15:07 WBC (3.8-10.6) k/uL RBC (3.80-5.40) m/uL Hgb (11.4-16.0) gm/dL Hct (34.0-46.0) % MCV (80.0-100.0) fL MCH (25.0-35.0) pg MCHC (31.0-37.0) g/dL RDW (11.5-15.5) % Plt Count (150-450) k/uL Neutrophils % % Lymphocytes % % Monocytes % % Eosinophils % % Basophils % % Neutrophils # (1.3-7.7) k/uL Lymphocytes # (1.0-4.8) k/uL Monocytes # (0-1.0) k/uL Eosinophils # (0-0.7) k/uL Basophils # (0-0.2) k/uL PT 10.8 (9.0-12.0) sec INR 1.1 (<1.2) APTT 25.1 (22.0-30.0) sec Sodium (137-145) mmol/L Potassium (3.5-5.1) mmol/L Chloride (98-107) mmol/L Carbon Dioxide (22-30) mmol/L Anion Gap mmol/L BUN (7-17) mg/dL Creatinine (0.52-1.04) mg/dL Est GFR (CKD-EPI)AfAm (>60 ml/min/1.73 sqM) Est GFR (CKD-EPI)NonAf (>60 ml/min/1.73 sqM) Glucose (74-99) mg/dL Calcium (8.4-10.2) mg/dL Magnesium (1.6-2.3) mg/dL Total Bilirubin (0.2-1.3) mg/dL AST (14-36) U/L ALT (9-52) U/L Alkaline Phosphatase (38-126) U/L Total Creatine Kinase (30-135) U/L CK-MB (CK-2) (0.0-2.4) ng/mL CK-MB (CK-2) Rel Index Troponin I (0.000-0.034) ng/mL NT-Pro-B Natriuret Pep 1720 pg/mL Total Protein (6.3-8.2) g/dL Albumin (3.5-5.0) g/dL Disposition Clinical Impression: Congestive heart failure Disposition: ADMITTED IP TO THIS HOSP Condition: Stable Is patient prescribed a controlled substance at d/c from ED?: No Referrals: Rox Parmar DO [Primary Care Provider] - 1-2 days Decision to Admit Reason: Admit from EC Decision Date: 12/04/17 Decision Time: 16:20
[2017-12-04 15:26] LABS: Basophils % (A) 1 %; Eosinophils # (A) 0.2 k/uL (0-0.7); Eosinophils % (A) 3 %; HCT 35.9 % (34.0-46.0); HGB 11.7 gm/dL (11.4-16.0); Lymphocytes # (A) 0.8 k/uL (1.0-4.8); Lymphocytes % (A) 15 %; MCH 31.1 pg (25.0-35.0); MCHC 32.6 g/dL (31.0-37.0); MCV 95.5 fL (80.0-100.0); Mean Platelet Volume 7.7; Monocytes # (A) 0.3 k/uL (0-1.0); Monocytes % (A) 5 %; Neutrophils # (A) 3.8 k/uL (1.3-7.7); Neutrophils % (A) 74 %; Platelet Count 199 k/uL (150-450); RBC 3.76 m/uL (3.80-5.40); RDW 13.9 % (11.5-15.5); WBC 5.1 k/uL (3.8-10.6)
[2017-12-04 15:33] LABS: Albumin 4.2 g/dL (3.5-5.0); Calcium 9.6 mg/dL (8.4-10.2); Magnesium 1.9 mg/dL (1.6-2.3); Potassium 4.3 mmol/L (3.5-5.1); Total Bilirubin 1.3 mg/dL (0.2-1.3); Total Protein 6.5 g/dL (6.3-8.2)
[2017-12-04 15:36] LABS: Creatine Kinase 32 U/L (30-135)
[2017-12-04 15:38] LABS: INR 1.1 (<1.2); Partial Thromboplastin Time 25.1 sec (22.0-30.0); Prothrombin Time 10.8 sec (9.0-12.0)
[2017-12-04 15:49] LABS: Creatine Kinase MB <0.2 ng/mL (0.0-2.4); Troponin I <0.012 ng/mL (0.000-0.034)
--- NOTE | 2017-12-04 15:50 | XR ---
EXAMINATION TYPE: XR chest 2V DATE OF EXAM: 12/04/2017 COMPARISON: Chest x-ray November 07, 2016. HISTORY: Worsening shortness of breath for 3 weeks. TECHNIQUE: Frontal and lateral views of the chest are obtained. FINDINGS: There is chronic parenchymal change without suspicious new focal air space opacity, pleura l effusion, or pneumothorax seen. There is persistent left basilar linear scarring or atelectasis. Th e cardiac silhouette size remains enlarged. The osseous structures remain demineralized. Overlying EKG wires and pain patches with leads are noted. IMPRESSION: Chronic parenchymal changes and cardiomegaly without suspicious acute pulmonary process.
[2017-12-04] MEDS ORDERED: RX INFO: IV CONTRAST WAS GIVEN 1 EACH MISC MISCELLANE PRN (16:09)
[2017-12-04] MEDS ORDERED: ASPIRIN 325 MG TAB PO STA (16:11)
[2017-12-04] MEDS ORDERED: FUROSEMIDE 10 MG/ML 4 ML VIAL IV STA (16:11)
[2017-12-04] MEDS ORDERED: ACETAMINOPHEN TAB 325 MG TAB PO PRN (16:13)
[2017-12-04] MEDS ORDERED: NALOXONE 0.4 MG/ML 1 ML VIAL IV PRN (16:13)
[2017-12-04] MEDS ORDERED: HYDROcodone/APAP 7.5-325MG 1 EACH TAB PO PRN (16:18)
[2017-12-04 18:16] VITALS: BMI 47.7
[2017-12-04] MEDS: ASPIRIN 81 MG PO SCH (19:57)
[2017-12-04] MEDS: METOPROLOL TARTRATE 50 MG TAB PO SCH (19:57)
[2017-12-04] MEDS: APIXABAN 5 MG TAB PO SCH (19:57)
[2017-12-04] MEDS: FUROSEMIDE 10 MG/ML 4 ML VIAL IV SCH (19:58)
[2017-12-04 20:22] LABS: Glucose,Whole Blood 108 mg/dL (75-99)
[2017-12-04 21:30] LABS: Glucose,Whole Blood 97 mg/dL (75-99)
[2017-12-04 22:08] LABS: Creatine Kinase MB 0.3 ng/mL (0.0-2.4); Troponin I 0.013 ng/mL (0.000-0.034)
[2017-12-04] MEDS ORDERED: BACLOFEN 10 MG TAB PO PRN (22:57)
--- NOTE | 2017-12-04 23:53 | HP ---
HISTORY AND PHYSICAL DATE OF SERVICE: 12/04/2017 CHIEF COMPLAINT: Shortness of breath. HISTORY OF PRESENT ILLNESS: This 77-year-old woman with a past medical history of multiple medical problems, including history of atrial fibrillation, chest pain, diabetes, hypertension, hyperlipidemia, was complaining of shortness of breath over the past several weeks. The shortness of breath was increasing in intensity. Patient was unable to get an appointment with Cardiology. The patient also gained about 13 pounds of weight and patient came to [facility]. The patient had features of CHF. The patient was admitted for further evaluation and treatment. There is no history of any fever or rigors. No history of headache, loss of consciousness, seizures. BNP elevated 1720. Chest x-ray which is personally evaluated by me showed some CHF. The patient has been followed by Dr. Parmar in the outpatient setting. Patient is on apixaban. PAST MEDICAL HISTORY: 1. History of diabetes mellitus, type 2. 2. Atrial fibrillation. 3. Hypertension. 4. Hyperlipidemia. 5. History of DJD. 6. History of paroxysmal atrial fibrillation. 7. History of back surgery and DJD. HOME MEDICATIONS: 1. [place] 7.5 q.6 p.r.n. 2. Baclofen 10 to 20 mg daily p.r.n. 3. Ecotrin 81 mg daily. 4. Humalog Mix 75/25 20 units subcutaneously daily. 5. Glucotrol XL 5 mg p.o. daily. 6. Norvasc 5 mg p.o. daily. 7. Zocor 40 mg p.o. daily. 8. Oxybutynin 10 mg p.o. daily. 9. Lopressor 50 mg p.o. b.i.d. 10.Actos 30 mg each morning. 11.Eliquis 5 mg p.o. b.i.d. ALLERGIES: 1. TETRACYCLINE. 2. FENTANYL. FAMILY HISTORY: History of myocardial infarction in the family. SOCIAL HISTORY: No history of smoking. No history of alcohol intake. REVIEW OF SYSTEMS: ENT: Diminished hearing. Diminished vision. CARDIOVASCULAR SYSTEM: As mentioned earlier. RESPIRATORY SYSTEM: As mentioned earlier. GI: No nausea, vomiting. : No dysuria or retention. NERVOUS SYSTEM: No numbness, weakness. ALLERGY/IMMUNOLOGY: No asthma, hayfever. MUSCULOSKELETAL: As mentioned earlier. HEMATOLOGY/ONCOLOGY: No history of anemia. ENDOCRINE: No history of diabetes, hypothyroidism. CONSTITUTIONAL: As mentioned earlier. DERMATOLOGY: Negative. RHEUMATOLOGY: Negative. PSYCHIATRY: As mentioned earlier. PHYSICAL EXAMINATION: Patient is alert, oriented x3. Pulse is 62, blood pressure 157/68, respiration 20, temperature 96.2, pulse ox 96% on 2 L. HEENT: Conjunctivae normal. Oral mucosa moist. NECK: No jugular venous distention. No carotid bruit. No lymph node enlargement. CARDIOVASCULAR SYSTEM: S1, S2 muffled. No S3. No S4. RESPIRATORY SYSTEM: Breath sounds diminished at the bases. A few scattered rhonchi and crackles. Expiratory wheezing. ABDOMEN: Soft, non-tender. LEGS: Bilateral leg edema. NERVOUS SYSTEM: No focal deficit. LABS: WBC 5.1, hemoglobin 11.7, sodium 147. ASSESSMENT: 1. Congestive heart failure, acute exacerbation. 2. Atrial fibrillation. 3. Diabetes mellitus, type 2. 4. Hypertension. 5. Hyperlipidemia. 6. History of degenerative joint disease. 7. History of paroxysmal atrial fibrillation. 8. History of back surgery. RECOMMENDATIONS AND DISCUSSION: In this 77-year-old woman who presented with multiple complex medical issues, we will monitor the patient closely, continue the current medications, continue with symptomatic treatment. I would recommend intravenous Lasix, fluid restriction to 1500 mL per 24 hours and cardiology consultation. Beta blockers. Continue the rest of the medications. Two-D echo with Doppler. Guarded prognosis because of multiple complex medical issues.. Further recommendations to follow. Repeat labs. A copy of this dictation is being forwarded to Dr. Parmar, who is the primary physician. MMJANNET / OMAIRA: [id number] / MTDD
[2017-12-05 02:10] LABS: Basophils % (A) 1 %; Eosinophils # (A) 0.2 k/uL (0-0.7); Eosinophils % (A) 2 %; HCT 36.7 % (34.0-46.0); HGB 11.6 gm/dL (11.4-16.0); Lymphocytes # (A) 1.5 k/uL (1.0-4.8); Lymphocytes % (A) 24 %; MCH 30.8 pg (25.0-35.0); MCHC 31.8 g/dL (31.0-37.0); MCV 96.9 fL (80.0-100.0); Mean Platelet Volume 8.3; Monocytes # (A) 0.3 k/uL (0-1.0); Monocytes % (A) 5 %; Neutrophils # (A) 4.1 k/uL (1.3-7.7); Neutrophils % (A) 67 %; Platelet Count 190 k/uL (150-450); RBC 3.79 m/uL (3.80-5.40); WBC 6.2 k/uL (3.8-10.6)
[2017-12-05 02:29] LABS: Potassium 4.1 mmol/L (3.5-5.1)
[2017-12-05 02:54] LABS: Creatine Kinase MB 0.4 ng/mL (0.0-2.4); Troponin I 0.012 ng/mL (0.000-0.034)
[2017-12-05 06:21] LABS: Glucose,Whole Blood 111 mg/dL (75-99)
[2017-12-05] MEDS: APIXABAN 5 MG TAB PO SCH ×2 (08:32→21:31)
[2017-12-05] MEDS: FUROSEMIDE 10 MG/ML 4 ML VIAL IV SCH ×2 (08:32→21:32)
[2017-12-05] MEDS: amLODIPine 5 MG TAB PO SCH (08:32)
[2017-12-05] MEDS: METOPROLOL TARTRATE 50 MG TAB PO SCH ×2 (08:33→21:32)
[2017-12-05] MEDS: OXYBUTYNIN 10 MG TAB.ER.24 PO SCH (08:33)
[2017-12-05] MEDS: INSULN ASP PRT/INSULIN ASPART 100 UNIT/ML 10 ML VIAL SQ SCH (08:33)
[2017-12-05] MEDS ORDERED: ATORVASTATIN 20 MG TAB PO SCH (09:00)
--- NOTE | 2017-12-05 10:06 | ECHOF ---
Referral Reason:CHF MEASUREMENTS -------- HEIGHT: 167.6 cm WEIGHT: 134.3 kg BP: 145/66 RVIDd: 3.1 cm (< 3.3) IVSd: 1.1 cm (0.6 - 1.1) LVIDd: 4.3 cm (3.9 - 5.3) LVPWd: 1.1 cm (0.6 - 1.1) IVSs: 1.4 cm LVIDs: 3.0 cm LVPWs: 1.6 cm LA Diam: 3.3 cm (2.7 - 3.8) LAESV Index (A-L): 25.60 ml/m Ao Diam: 3.2 cm (2.0 - 3.7) AV Cusp: 1.9 cm (1.5 - 2.6) MV EXCURSION: 15.944 mm (> 18.000) MV EF SLOPE: 63 mm/s (70 - 150) EPSS: 0.3 cm MV E Wolf: 1.55 m/s MV DecT: 206 ms MV A Wolf: 0.56 m/s MV E/A Ratio: 2.76 AV maxP.56 mmHg AV maxP.56 mmHg AV meanP.55 mmHg RAP: 5.00 mmHg RVSP: 58.45 mmHg FINDINGS -------- Sinus rhythm. This was a technically adequate study. The left ventricular size is normal. There is borderline concentric left ventricular hypertrophy. Overall left ventricular systolic function is normal with, an EF between 55 - 60 %. The right ventricle is normal in size. Normal LA size by volume 22+/-6 ml/m2. The right atrium is normal in size. There is mild aortic valve sclerosis. The mitral valve leaflets are mildly thickened. Mild mitral annular calcification present. Mild m itral regurgitation is present. Mild tricuspid regurgitation present. There is severe pulmonary hypertension. The right ventricul ar systolic pressure, as measured by Doppler, is 58.45mmHg. Trace/mild (physiologic) pulmonic regurgitation. The aortic root size is normal. Normal inferior vena cava with normal inspiratory collapse consistent with estimated right atrial pre ssure of 5 mmHg. There is no pericardial effusion. CONCLUSIONS -------- 1. Sinus rhythm. 2. This was a technically adequate study. 3. The left ventricular size is normal. 4. There is borderline concentric left ventricular hypertrophy. 5. Overall left ventricular systolic function is normal with, an EF between 55 - 60 %. 6. The right ventricle is normal in size. 7. Normal LA size by volume 22+/-6 ml/m2. 8. The right atrium is normal in size. 9. There is mild aortic valve sclerosis. 10. The mitral valve leaflets are mildly thickened. 11. Mild mitral annular calcification present. 12. Mild mitral regurgitation is present. 13. Mild tricuspid regurgitation present. 14. There is severe pulmonary hypertension. 15. The right ventricular systolic pressure, as measured by Doppler, is 58.45mmHg. 16. Trace/mild (physiologic) pulmonic regurgitation. 17. The aortic root size is normal. 18. Normal inferior vena cava with normal inspiratory collapse consistent with estimated right atrial pressure of 5 mmHg. 19. There is no pericardial effusion. COMMUNITY RELATIONS LIAISON: Jessica Peñaloza RDCS
[2017-12-05 11:48] LABS: Glucose,Whole Blood 59 mg/dL (75-99)
[2017-12-05 12:04] LABS: Glucose,Whole Blood 92 mg/dL (75-99)
[2017-12-05 17:00] LABS: Glucose,Whole Blood 137 mg/dL (75-99)
--- NOTE | 2017-12-05 18:00 | PN ---
PROGRESS NOTE DATE OF SERVICE: 12/05/2017 This 77-year-old woman who was admitted with CHF acute exacerbation is being closely monitored. No chest pain. No palpitations. No fever. A 2D echo with Doppler done today showed ejection fraction 55-60%, mild valvular abnormalities also noted. PHYSICAL EXAM: Alert and oriented times three. Pulse 57, blood pressure 140/56, respiration 20, temperature 97 degrees, pulse ox 97% on 2 L. HEENT: Conjunctivae normal. Neck: No jugular venous distention. Cardiovascular: S1, S muffled. Respirations: Breath sounds diminished in the bases. A few scattered rhonchi. ABDOMEN: Soft. Legs bilateral leg edema. Nervous system: No focal deficits. LABS: WBC 6.2, hemoglobin 11.6. ASSESSMENT: 1. Congestive heart failure acute exacerbation with acute on chronic diastolic dysfunction ejection fraction 50% to 60%. 2. Atrial fibrillation. 3. Diabetes type 2. 4. Hypertension. 5. Hyperlipidemia. 6. History of degenerative joint disease. 7. History of paroxysmal atrial fibrillation. 8. History of back surgery. RECOMMENDATIONS AND DISCUSSION: Recommend to continue current medications, continue symptomatic treatment, management and continue the diuretics. Closely follow with Cardiology. Guarded prognosis because of multiple complex medical issues. Further recommendations to follow. MMODL / IJN: [id number] /
--- NOTE | 2017-12-05 19:15 | CONS ---
CONSULTATION Mrs. Mcpherson is a 77-year-old female, who is seen for cardiac evaluation. This patient has a history of diabetes, hypertension, past history of atrial fibrillation. The patient has been having increasing shortness of breath with minimal activities with history suggestive of orthopnea and PND. The patient has gained about 10-13 pounds of the weight and patient came to the emergency room and subsequently is admitted. She denies any significant chest pain. There is no prior history of myocardial infarction. PAST MEDICAL HISTORY: Includes history of diabetes, atrial fibrillation, hypertension, history of back surgery. MEDICATIONS: The patient's medications include baclofen, Ecotrin, Glucotrol, Norvasc, Zocor, Lopressor, Actos and Eliquis. ALLERGIC: TETRACYCLINE and FENTANYL. SOCIAL HISTORY: Patient does not smoke. REVIEW OF THE SYSTEM: Otherwise unremarkable. PHYSICAL EXAMINATION: At present reveals a 77-year-old, obesely built female who does not appear to be in any acute distress. The patient's blood pressure is 150/66 mmHg. Heart rate is 60 per minute. HEENT examination is negative. Neck is supple. Jugular venous pressure is difficult to assess. Both the carotid pulses are felt. There is no bruit. Chest is symmetrical. Heart: The PMI is not felt. First and second heart sounds are normal. Lungs examination reveals bilateral few scattered wheezes. Abdomen is soft. There is a 1+ pedal edema. Patient's troponin is 0.012. The BNP level is 1720. Chest x-ray suggestive of mild heart failure. The patient's echocardiogram reveals normal left ventricular systolic functions with a moderate degree of pulmonary hypertension. FINAL IMPRESSION: 1. This patient is admitted with shortness of breath. Most likely patient has acute on chronic diastolic heart failure. Underlying associated some chronic obstructive pulmonary disease cannot be entirely excluded. 2. History of hypertension and diabetes. RECOMMENDATIONS: We will continue patient on IV Lasix. Aldactone 25 mg b.i.d. is added and Cozaar 25 mg b.i.d. is added. MMODL / IJN: [id number] /
[2017-12-05 21:00] LABS: Glucose,Whole Blood 138 mg/dL (75-99)
[2017-12-05] MEDS: ASPIRIN 81 MG PO SCH (21:32)
[2017-12-05] MEDS: LOSARTAN 25 MG TAB PO SCH (21:32)
[2017-12-05] MEDS: SPIRONOLACTONE 25 MG TAB PO SCH (21:32)
[2017-12-06 06:47] LABS: Glucose,Whole Blood 117 mg/dL (75-99)
[2017-12-06 07:12] LABS: Basophils % (A) 0 %; Eosinophils # (A) 0.2 k/uL (0-0.7); Eosinophils % (A) 3 %; HCT 35.1 % (34.0-46.0); HGB 11.3 gm/dL (11.4-16.0); Lymphocytes # (A) 0.9 k/uL (1.0-4.8); Lymphocytes % (A) 19 %; MCH 30.9 pg (25.0-35.0); MCHC 32.3 g/dL (31.0-37.0); MCV 95.8 fL (80.0-100.0); Mean Platelet Volume 8.1; Monocytes # (A) 0.3 k/uL (0-1.0); Monocytes % (A) 7 %; Neutrophils % (A) 67 %; Platelet Count 167 k/uL (150-450); RBC 3.66 m/uL (3.80-5.40); RDW 13.8 % (11.5-15.5); WBC 4.5 k/uL (3.8-10.6)
[2017-12-06 07:26] LABS: Calcium 9.1 mg/dL (8.4-10.2); Potassium 3.9 mmol/L (3.5-5.1)
[2017-12-06] MEDS: LOSARTAN 25 MG TAB PO SCH ×2 (08:18→21:17)
[2017-12-06] MEDS: SPIRONOLACTONE 25 MG TAB PO SCH ×2 (08:18→21:16)
[2017-12-06] MEDS: APIXABAN 5 MG TAB PO SCH ×2 (08:18→21:16)
[2017-12-06] MEDS: OXYBUTYNIN 10 MG TAB.ER.24 PO SCH (08:18)
[2017-12-06] MEDS: FUROSEMIDE 10 MG/ML 4 ML VIAL IV SCH (08:18)
[2017-12-06] MEDS: amLODIPine 5 MG TAB PO SCH (08:18)
[2017-12-06] MEDS: METOPROLOL TARTRATE 50 MG TAB PO SCH ×2 (08:19→21:16)
[2017-12-06] MEDS: INSULN ASP PRT/INSULIN ASPART 100 UNIT/ML 10 ML VIAL SQ SCH (08:19)
[2017-12-06 11:06] LABS: Glucose,Whole Blood 74 mg/dL (75-99)
--- NOTE | 2017-12-06 13:47 | P.PN ---
Subjective Progress Note Date: 12/06/17 Principal diagnosis: DYSPNEA ON DIASTOLIC CHF Patient is admitted with complaints of shortness of breath and diagnosis of diastolic CHF. It appears that patient was not taking her diuretics. She was started on IV Lasix along with Aldactone. She is feeling better. She is less short of breath. Lungs are clear. Heart is regular. We will continue current regimen for 24 hours. Possible discharge in a.m. Objective - Vital Signs Vital signs: Vital Signs Temp 97.7 F 12/06/17 07:00 Pulse 66 12/06/17 08:17 Resp 16 12/06/17 07:00 BP 131/53 12/06/17 07:00 Pulse Ox 97 12/06/17 10:59 Intake & Output 12/05/17 12/06/17 12/06/17 18:59 06:59 18:59 Intake Total 960 180 Balance 960 180 Intake: Oral 960 180 Other: Voiding Method Toilet # Voids 2 2 # Bowel Movements 0 - Exam GENERAL EXAM: Patient is alert and oriented and doesn't appear to be in any acute distress HEENT: Normocephalic. Normal reaction of pupils, equal size, normal range of extraocular motion. No erythema or exudates in the throat. NECK: No masses, no nuchal rigidity. CHEST: No chest wall deformity. LUNGS: Equal air entry with no crackles or wheeze. HEART: S1 and S2 normal with no audible mumurs or gallops. Regular rhythm, femorals equal on both sides.. ABDOMEN: No hepatosplenomegaly, normal bowel sounds, no guarding or rigidity. SKIN: No rashes CENTRAL NERVOUS SYSTEM: No focal deficits. EXTREMITIES: No cyanosis, clubbing or edema. - Labs CBC & Chem 7: 12/06/17 06:08 12/06/17 06:08 Labs: Abnormal Lab Results - Last 24 Hours (Table) 12/05/17 12/05/17 12/06/17 Range/Units 16:59 20:59 06:08 RBC 3.66 L (3.80-5.40) m/uL Hgb 11.3 L (11.4-16.0) gm/dL Lymphocytes # 0.9 L (1.0-4.8) k/uL BUN (7-17) mg/dL Glucose (74-99) mg/dL POC Glucose (mg/dL) 137 H 138 H (75-99) mg/dL 12/06/17 12/06/17 12/06/17 Range/Units 06:08 06:45 11:03 RBC (3.80-5.40) m/uL Hgb (11.4-16.0) gm/dL Lymphocytes # (1.0-4.8) k/uL BUN 22 H (7-17) mg/dL Glucose 108 H (74-99) mg/dL POC Glucose (mg/dL) 117 H 74 L (75-99) mg/dL Assessment and Plan (1) Congestive heart failure Current Visit: Yes Status: Acute Code(s): I50.9 - HEART FAILURE, UNSPECIFIED SNOMED Code(s): 00240246 (2) History of atrial fibrillation Current Visit: No Status: Acute Code(s): Z86.79 - PERSONAL HISTORY OF OTHER DISEASES OF THE CIRCULATORY SYSTEM SNOMED Code(s): 329685139 (3) Hypertension Current Visit: No Status: Acute Code(s): I10 - ESSENTIAL (PRIMARY) HYPERTENSION SNOMED Code(s): 85729637 (4) Lower extremity edema Current Visit: No Status: Acute Code(s): R60.0 - LOCALIZED EDEMA SNOMED Code(s): 332677027 Plan: Continue current medical therapy with Lasix and Aldactone. Follow electrolytes. Possible discharge in a.m.
[2017-12-06] MEDS: FUROSEMIDE 40 MG TAB PO SCH (15:45)
--- NOTE | 2017-12-06 16:07 | PN ---
PROGRESS NOTE DATE OF SERVICE: 12/06/2017 This 77-year-old woman who was admitted CHF, acute exacerbation, is improving significantly. No chest pain. No palpitations. No fever. On exam, alert and oriented x3. Pulse 57, blood pressure 131/53, respiration 16, temperature 97.6, pulse ox 97% on 2 L. HEENT: Conjunctivae normal. NECK: No jugular venous distention. CARDIOVASCULAR SYSTEM: S1, S2 muffled. RESPIRATORY SYSTEM: Breath sounds diminished at the bases. A few scattered rhonchi. ABDOMEN: Soft. NERVOUS SYSTEM: No focal deficit. LABS: WBC 4.5, hemoglobin 7.3. Glucose 108. ASSESSMENT: 1. Congestive heart failure, acute exacerbation, with acute on chronic diastolic dysfunction, ejection fraction 50% to 60%. 2. Atrial fibrillation. 3. Diabetes mellitus, type 2. 4. Hypertension. 5. Hyperlipidemia. 6. History of degenerative joint disease. 7. History of paroxysmal atrial fibrillation. 8. History of back surgery. RECOMMENDATIONS AND DISCUSSION: I recommend to continue current medication, continue with the monitoring, symptomatic treatment. Otherwise at this time I would recommend continuing with the diuretics. Closely follow with Cardiology. Guarded prognosis. Further recommendations to follow. MMODL / IJN: [id number] /
[2017-12-06 16:31] LABS: Glucose,Whole Blood 125 mg/dL (75-99)
[2017-12-06 19:54] LABS: Glucose,Whole Blood 137 mg/dL (75-99)
[2017-12-06] MEDS: ASPIRIN 81 MG PO SCH (21:16)
[2017-12-07 01:11] VITALS: PULSE 58
[2017-12-07 06:59] LABS: Glucose,Whole Blood 141 mg/dL (75-99)
[2017-12-07 07:02] LABS: Basophils % (A) 0 %; Eosinophils # (A) 0.2 k/uL (0-0.7); Eosinophils % (A) 4 %; HCT 39.2 % (34.0-46.0); HGB 12.6 gm/dL (11.4-16.0); Lymphocytes # (A) 1.3 k/uL (1.0-4.8); Lymphocytes % (A) 25 %; MCH 30.9 pg (25.0-35.0); MCHC 32.1 g/dL (31.0-37.0); MCV 96.2 fL (80.0-100.0); Monocytes # (A) 0.3 k/uL (0-1.0); Monocytes % (A) 6 %; Neutrophils # (A) 3.3 k/uL (1.3-7.7); Neutrophils % (A) 62 %; Platelet Count 213 k/uL (150-450); RBC 4.07 m/uL (3.80-5.40); RDW 13.8 % (11.5-15.5); WBC 5.3 k/uL (3.8-10.6)
[2017-12-07 07:14] LABS: Calcium 9.5 mg/dL (8.4-10.2); Potassium 4.5 mmol/L (3.5-5.1)
[2017-12-07 07:17] VITALS: BP 133/76; RESP 16
[2017-12-07 07:19] VITALS: TEMP 97.2
--- NOTE | 2017-12-07 08:49 | P.PN ---
Subjective Progress Note Date: 12/07/17 Principal diagnosis: DYSPNEA and DIASTOLIC CHF This 77-year-old female was admitted with complaints of increasing shortness of breath. Patient has chronic CHF and I was treated with Lasix and Aldactone. Patient stopped taking medications for several days prior to admission. She was incision IV Lasix and also Aldactone. She is feeling much better. No orthopnea or paroxysmal nocturnal dyspnea. The swelling has come down. Patient wants to go home. No arrhythmias detected. Patient is being discharged home today. She will resume her home dose of Lasix and Aldactone and continue the rest of the medication. Follow-up with Dr. LISSY Cuevas in one week. Apparently this is scheduled to have a cardiac catheterization in the near future Objective - Vital Signs Vital signs: Vital Signs Temp 97.2 F L 12/07/17 07:19 Pulse 58 L 12/07/17 07:14 Resp 16 12/07/17 07:14 BP 133/76 12/07/17 07:14 Pulse Ox 95 12/07/17 07:14 Intake & Output 12/06/17 12/07/17 12/07/17 18:59 06:59 18:59 Intake Total 653 240 Balance 653 240 Intake: Oral 653 240 Other: # Voids 4 3 - Labs CBC & Chem 7: 12/07/17 06:09 12/07/17 06:09 Labs: Abnormal Lab Results - Last 24 Hours (Table) 12/06/17 12/06/17 12/06/17 Range/Units 11:03 16:22 19:50 BUN (7-17) mg/dL Glucose (74-99) mg/dL POC Glucose (mg/dL) 74 L 125 H 137 H (75-99) mg/dL 12/07/17 12/07/17 Range/Units 06:09 06:57 BUN 27 H (7-17) mg/dL Glucose 144 H (74-99) mg/dL POC Glucose (mg/dL) 141 H (75-99) mg/dL Assessment and Plan (1) Congestive heart failure Current Visit: Yes Status: Acute Code(s): I50.9 - HEART FAILURE, UNSPECIFIED SNOMED Code(s): 48154474 (2) History of atrial fibrillation Current Visit: No Status: Acute Code(s): Z86.79 - PERSONAL HISTORY OF OTHER DISEASES OF THE CIRCULATORY SYSTEM SNOMED Code(s): 156092393 (3) Hypertension Current Visit: No Status: Acute Code(s): I10 - ESSENTIAL (PRIMARY) HYPERTENSION SNOMED Code(s): 82482210 (4) Lower extremity edema Current Visit: No Status: Acute Code(s): R60.0 - LOCALIZED EDEMA SNOMED Code(s): 758312414 Plan: Patient is feeling better and critically stable. Patient discharged home to resume Lasix and Aldactone along with other medication. Follow-up with Dr. LISSY Cuevas
[2017-12-07] MEDS: APIXABAN 5 MG TAB PO SCH (10:13)
[2017-12-07] MEDS: OXYBUTYNIN 10 MG TAB.ER.24 PO SCH (10:13)
[2017-12-07] MEDS: FUROSEMIDE 40 MG TAB PO SCH (10:13)
[2017-12-07] MEDS: amLODIPine 5 MG TAB PO SCH (10:13)
[2017-12-07] MEDS: METOPROLOL TARTRATE 50 MG TAB PO SCH (10:13)
[2017-12-07] MEDS: SPIRONOLACTONE 25 MG TAB PO SCH (10:13)
[2017-12-07] MEDS: LOSARTAN 25 MG TAB PO SCH (10:13)
[2017-12-07] MEDS: INSULN ASP PRT/INSULIN ASPART 100 UNIT/ML 10 ML VIAL SQ SCH (10:28)
[2017-12-07 12:04] LABS: Glucose,Whole Blood 114 mg/dL (75-99)
--- NOTE | 2017-12-07 12:32 | DS ---
DISCHARGE SUMMARY DATE OF SERVICE: 12/07/2017. FINAL DIAGNOSES: 1. Congestive heart failure acute exacerbation with acute on chronic diastolic dysfunction ejection fraction 50-60%. 2. Atrial fibrillation. 3. Diabetes mellitus type 2. 4. Hypertension. 5. Hyperlipidemia. 6. History of degenerative joint disease. 7. History of paroxysmal atrial fibrillation. 8. History of back surgery. DISCHARGE DISPOSITION: The patient will be discharged in stable condition with guarded prognosis. HISTORY OF PRESENT ILLNESS: This 77-year-old woman with a past medical history of multiple medical problems was admitted with CHF acute exacerbation. Patient treated with diuretics and other medications. Cardiology saw the patient. Patient improved was significantly. On exam, vitals are stable. Cardiovascular: S1, S2. Abdomen: Soft. Nervous System: No focal deficits. DISCHARGE ADVICE AND MEDICATIONS: 1. Diet is cardiac. 2. Activity limited until followup. 3. Follow up with Dr. Parmar in 1 to 2 days. 4. Follow with Cardiology as recommend. MEDICATIONS: 1. Eliquis 5 mg p.o. b.i.d. 2. Ecotrin 81 mg q.h.s. 3. Baclofen 20/20 p.r.n. 4. Lasix 40 mg p.o. daily. 5. Glucotrol XL 5 mg p.o. daily. 6. Hydrocodone 7.5 q.6h p.r.n. 7. Insulin lispro 20 units subcu daily. 8. Cozaar 25 mg p.o. b.i.d. 9. Lopressor 50 mg p.o. b.i.d. 10.Oxybutynin 10 mg p.o. daily. 11.Zocor 40 mg. 12.Aldactone 25 mg p.o. b.i.d. Lytes to be monitored closely in the outpatient setting. CBC, BMP. Once again, the patient is being discharged in stable condition with guarded prognosis. Monitor creatinine and potassium closely in the outpatient setting. Follow closely with Cardiology also. MMODL / IJN: [id number] /
== END 2017-12-07 13:48 | disposition home or self-care (01) | DRG 293 ==
LOC: EC 14:38 → 6SEL 16:15 → 3SUR 12-05 21:47
PROVIDERS: ADMIT Hospitalist; ATTEND Hospitalist
DX: I11.0 Hypertensive heart disease with heart failure (principal); E11.9 Type 2 diabetes mellitus without complications; E78.5 Hyperlipidemia, unspecified; I48.0 Paroxysmal atrial fibrillation; I50.33 Acute on chronic diastolic (congestive) heart failure; G89.29 Other chronic pain; M19.90 Unspecified osteoarthritis, unspecified site; M54.9 Dorsalgia, unspecified; R26.2 Difficulty in walking, not elsewhere classified; J44.9 Chronic obstructive pulmonary disease, unspecified; Z79.01 Long term (current) use of anticoagulants; Z79.4 Long term (current) use of insulin; Z79.899 Other long term (current) drug therapy; Z79.82 Long term (current) use of aspirin; Z82.49 Family history of ischemic heart disease and other diseases of the circulatory system
CPT/HCPCS: 36415; 71046; 80048; 80053; 82550; 82553; 83735; 83880; 84484; 85025; 85610; 85730; 93005; 93306; 96374; 99285

== ENCOUNTER → 2017-12-17 | Outpatient (CLI) | payer MEDICARE ==
[2017-12-17 12:21] LABS: Potassium 4.7 mmol/L (3.5-5.1)
== END | disposition home or self-care (01) ==
LOC: LABPAT 11:45
PROVIDERS: ATTEND Internal Medicine Interventional Cardiology
DX: Z01.812 Encounter for preprocedural laboratory examination (principal); R07.9 Chest pain, unspecified
CPT/HCPCS: 36415; 80051; 82565; 84520

== ENCOUNTER 2018-04-09 09:27 | Emergency (ER) | payer MEDICARE ==
--- NOTE | 2018-04-09 10:09 | ED ---
General Adult HPI - General Chief complaint: Back Pain/Injury Stated complaint: chest pain Source: patient Mode of arrival: wheelchair Limitations: no limitations - History of Present Illness Initial comments: Dictation was produced using [employer] dictation software. please excuse any grammatical, word or spelling errors. Chief Complaint: 77-year-old female with past medical history of chronic back pain, right shoulder fracture presents with severe back spasms 1 day. History of Present Illness: Patient is a 77-year-old female with chronic back pain. She is had multiple TENS unit displaced to the left upper back recently. She is currently been managed outpatient by orthopedic doctor and pain specialist. She recently had an MRI performed. Today upon waking she had severe back spasms. Patient states she's been having the symptoms ongoing for the past several weeks. She recently had TENS unit displaced. Prior to today she's been managing her pain at home. Patient states she's gets these severe back spasms to her left lower thoracic back that occur every minute. She takes [employer] at home with minimal relief. Denies any other symptoms. Patient felt relatively normal yesterday. Patient states that she has history of right shoulder injury which she has been told is causing her left sided back pain. The ROS documented in this emergency department record has been reviewed and confirmed by me. Those systems with pertinent positive or negative responses have been documented in the HPI. All other systems are other negative and/or noncontributory. - Related Data Home Medications Medication Instructions Recorded Confirmed Metoprolol Tartrate [Lopressor] 50 mg PO BID 06/18/16 04/09/18 Simvastatin [Zocor] 40 mg PO DAILY 11/01/16 04/09/18 Baclofen 10 mg PO DAILY PRN 12/04/17 04/09/18 Insulin NPL/Insulin Lispro 20 unit SQ DAILY 12/04/17 04/09/18 [humaLOG MIX 75-25 VIAL] Oxybutynin Chloride [Oxybutynin 10 mg PO DAILY 12/04/17 04/09/18 Chloride ER] glipiZIDE XL [Glucotrol XL] 5 mg PO DAILY 12/04/17 04/09/18 Apixaban [Eliquis] 5 mg PO DAILY 04/09/18 04/09/18 amLODIPine [Norvasc] 5 mg PO DAILY 04/09/18 04/09/18 metFORMIN HCL ER [Glucophage Xr] 500 mg PO DAILY 04/09/18 04/09/18 sitaGLIPtin [Januvia] 100 mg PO DAILY 04/09/18 04/09/18 Previous Rx's Medication Instructions Recorded Furosemide [Lasix] 40 mg PO DAILY #30 tablet 12/06/17 Losartan [Cozaar] 25 mg PO BID #60 tab 12/06/17 Spironolactone [Aldactone] 25 mg PO BID #60 tab 12/06/17 Morphine Sulfate Ir [MSIR] 15 mg PO Q6HR PRN 3 Days #6 tab 04/09/18 Allergies Allergy/AdvReac Type Severity Reaction Status Date / Time tetracycline Allergy Unknown Verified 04/09/18 10:19 fentanyl AdvReac "SKIN Verified 04/09/18 10:19 CRAWLS", HYPER Review of Systems ROS Statement: Those systems with pertinent positive or pertinent negative responses have been documented in the HPI. ROS Other: All systems not noted in ROS Statement are negative. Past Medical History Past Medical History: Atrial Fibrillation, Chest Pain / Angina, Heart Failure, Diabetes Mellitus, Hyperlipidemia, Hypertension, Osteoarthritis (OA), Pneumonia Additional Past Medical History / Comment(s): Paroxysmal Afib, POST OP INFECTION AFTER BACK SURGERY, CHRONIC BACK PAIN FROM T8 FX, difficulty walking d/t back pain, CHRONIC PERIPHERAL LEG EDEMA, UTIs, R humerus fracture. History of Any Multi-Drug Resistant Organisms: None Reported Past Surgical History: Back Surgery, Cholecystectomy, Orthopedic Surgery Additional Past Surgical History / Comment(s): 2015 LUMBAR SURGERY, FX NOSE REPAIR, BILATERAL CATARACT SURGERY, R WRIST CARPAL TUNNEL SURGERY, kyphoplasty T8 ON 06/26/16 AND ONE BEFORE. Past Anesthesia/Blood Transfusion Reactions: No Reported Reaction Additional Past Anesthesia/Blood Transfusion Reaction / Comment(s): NEVER HAD A BLOOD TRANSFUSION. Past Psychological History: No Psychological Hx Reported Smoking Status: Never smoker Past Alcohol Use History: None Reported Past Drug Use History: None Reported - Past Family History Father Family Medical History: Myocardial Infarction ([place]) Additional Family Medical History / Comment(s): FATHER AT AGE 52 OF AN [place] Mother Additional Family Medical History / Comment(s): MOTHER AT AGE 89 OF CELEBREX PROBLEM. General Exam - General Exam Comments Initial Comments: PHYSICAL EXAM: General Impression: Alert and oriented x3, acute distress secondary to pain, diaphoretic HEENT: Normocephalic atraumatic, extra-ocular movements intact, pupils equal and reactive to light bilaterally, mucous membranes moist. Cardiovascular: Heart regular rate and rhythm, S1&S2 audible, no murmurs, rubs or gallops Chest: Lungs clear to auscultation bilaterally, no rhonchi, no wheeze, no rales Abdomen: Bowel sounds present, abdomen soft, non-tender, non-distended, no organomegaly Musculoskeletal: Pulses present and equal in all extremities, no peripheral edema, TENS unit hardware connected to left thoracic paraspinal musculature Motor: Power 5/5 bilaterally, no focal deficits noted Neurological: CN II-XII grossly intact, no focal motor or sensory deficits noted Skin: Intact with no visualized rashes Psych: Normal affect and mood Limitations: no limitations Course Vital Signs 04/09/18 04/09/18 04/09/18 09:28 09:59 10:30 Temperature 97.8 F Pulse Rate 69 43 L Pulse Rate [ 75 [employer] ] Respiratory 20 20 Rate Blood Pressure 155/63 111/59 O2 Sat by Pulse 99 97 Oximetry 04/09/18 04/09/18 10:59 11:10 Temperature Pulse Rate 60 88 Pulse Rate [ [employer] ] Respiratory 18 Rate Blood Pressure O2 Sat by Pulse 97 Oximetry Medical Decision Making - Medical Decision Making ED course: 7-year-old female presents with severe back spasms that are acute on chronic. Vital signs upon arrival are within acceptable limits. Initial EKG is benign. TENS unit sites are clean dry intact without any signs of infection.Laboratory evaluation was obtained CBC, CMP were obtained showing no acute processes. Patient does have a small bump in her renal markers. We were able to obtain MRI results that was recently done and is treating chronic fractures. There was a mild this bulge in the T6 area. Discussed patient case with primary care physician's office who is familiar with the patient. States that she has been having pain it's [id number] she is well familiar with their office and has been seen on multiple occasions for the same complaint. Patient given IV analgesics with good improvement of symptoms. Discussed with patient that we will give her some morphine immediate release pain meds to go home with for only severe pain. Discussed patient that this medication can cause side effects if taken excessively. Patient understands the risk associated with this medication. She is told to follow-up with her primary care physician's office as soon as possible. Patient is understandable agreeable to disposition. - Lab Data Result diagrams: 04/09/18 09:50 04/09/18 09:50 Lab Results 04/09/18 04/09/18 Range/Units 09:50 09:50 WBC 8.0 (3.8-10.6) k/uL RBC 4.01 (3.80-5.40) m/uL Hgb 12.3 (11.4-16.0) gm/dL Hct 39.3 (34.0-46.0) % MCV 97.9 (80.0-100.0) fL MCH 30.7 (25.0-35.0) pg MCHC 31.4 (31.0-37.0) g/dL RDW 13.5 (11.5-15.5) % Plt Count 240 (150-450) k/uL Neutrophils % 76 % Lymphocytes % 15 % Monocytes % 5 % Eosinophils % 2 % Basophils % 0 % Neutrophils # 6.1 (1.3-7.7) k/uL Lymphocytes # 1.2 (1.0-4.8) k/uL Monocytes # 0.4 (0-1.0) k/uL Eosinophils # 0.2 (0-0.7) k/uL Basophils # 0.0 (0-0.2) k/uL Sodium 142 (137-145) mmol/L Potassium 4.8 (3.5-5.1) mmol/L Chloride 107 (98-107) mmol/L Carbon Dioxide 23 (22-30) mmol/L Anion Gap 12 mmol/L BUN 34 H (7-17) mg/dL Creatinine 1.38 H (0.52-1.04) mg/dL Est GFR (CKD-EPI)AfAm 43 (>60 ml/min/1.73 sqM) Est GFR (CKD-EPI)NonAf 37 (>60 ml/min/1.73 sqM) Glucose 153 H (74-99) mg/dL Calcium 9.8 (8.4-10.2) mg/dL Magnesium 2.3 (1.6-2.3) mg/dL Total Bilirubin 1.2 (0.2-1.3) mg/dL AST 20 (14-36) U/L ALT 24 (9-52) U/L Alkaline Phosphatase 108 (38-126) U/L Total Protein 7.3 (6.3-8.2) g/dL Albumin 4.3 (3.5-5.0) g/dL Disposition Clinical Impression: Back strain Disposition: HOME SELF-CARE Condition: Good Instructions: Chronic Back Pain (ED) Prescriptions: Morphine Sulfate Ir [MSIR] 15 mg PO Q6HR PRN 3 Days #6 tab PRN Reason: Pain Is patient prescribed a controlled substance at d/c from ED?: Yes If prescribed controlled substance>3 days was MAPS reviewed?: Prescribed <3 Days Referrals: Rox Parmar DO [Primary Care Provider] - 1-2 days Time of Disposition: 11:54
[2018-04-09] MEDS ORDERED: MORPHINE SULFATE 4 MG/ML SYRINGE IVP PRN (10:13)
[2018-04-09 10:16] LABS: Basophils % (A) 0 %; Eosinophils # (A) 0.2 k/uL (0-0.7); Eosinophils % (A) 2 %; HCT 39.3 % (34.0-46.0); HGB 12.3 gm/dL (11.4-16.0); Lymphocytes # (A) 1.2 k/uL (1.0-4.8); Lymphocytes % (A) 15 %; MCH 30.7 pg (25.0-35.0); MCHC 31.4 g/dL (31.0-37.0); MCV 97.9 fL (80.0-100.0); Mean Platelet Volume 7.3; Monocytes # (A) 0.4 k/uL (0-1.0); Monocytes % (A) 5 %; Neutrophils # (A) 6.1 k/uL (1.3-7.7); Neutrophils % (A) 76 %; Platelet Count 240 k/uL (150-450); RBC 4.01 m/uL (3.80-5.40); RDW 13.5 % (11.5-15.5)
--- NOTE | 2018-04-09 10:23 | XR ---
EXAMINATION TYPE: XR chest 1V DATE OF EXAM: 04/09/2018 COMPARISON: Chest x-ray December 04, 2017 HISTORY: Chest and severe back pain. TECHNIQUE: Single AP portable frontal upright view of the chest is obtained. FINDINGS: Overlying EKG leads and leads for pain patches are redemonstrated. There is chronic right change without suspicious new focal air space opacity, pleural effusion, or pneumothorax seen. The c ardiac silhouette size remains enlarged. The osseous structures are demineralized. IMPRESSION: Cardiomegaly and chronic parenchymal changes without acute pulmonary process.
[2018-04-09 10:27] LABS: Albumin 4.3 g/dL (3.5-5.0); Calcium 9.8 mg/dL (8.4-10.2); Magnesium 2.3 mg/dL (1.6-2.3); Potassium 4.8 mmol/L (3.5-5.1); Total Bilirubin 1.2 mg/dL (0.2-1.3); Total Protein 7.3 g/dL (6.3-8.2)
[2018-04-09] MEDS ORDERED: ATROPINE SULFATE 0.1 MG/ML 10ML SYRINGE IV STA (11:00)
[2018-04-09 11:31] VITALS: RESP 18
[2018-04-09 12:17] VITALS: BP 101/59; PULSE 56; TEMP 96.6
[2018-04-09 18:54] LABS: Hemoglobin A1C 5.8 % (4.0-6.0)
== END 2018-04-09 12:13 | disposition home or self-care (01) ==
LOC: EC 09:27
DX: S29.012A Strain of muscle and tendon of back wall of thorax, initial encounter (principal); R61 Generalized hyperhidrosis; I48.0 Paroxysmal atrial fibrillation; E78.5 Hyperlipidemia, unspecified; I11.0 Hypertensive heart disease with heart failure; I50.9 Heart failure, unspecified; E11.9 Type 2 diabetes mellitus without complications; Z88.1 Allergy status to other antibiotic agents; Z88.5 Allergy status to narcotic agent; Z79.01 Long term (current) use of anticoagulants; Z79.4 Long term (current) use of insulin; Z79.899 Other long term (current) drug therapy; Z86.79 Personal history of other diseases of the circulatory system; Z98.890 Other specified postprocedural states; Z53.8 Procedure and treatment not carried out for other reasons; X58.XXXA Exposure to other specified factors, initial encounter
CPT/HCPCS: 36415; 71045; 80053; 83036; 83735; 85025; 93005; 96374; 99284

== ENCOUNTER 2018-06-30 21:17 | Observation (INO) | payer MEDICARE ==
[2018-06-30] MEDS ORDERED: ONDANSETRON 4 MG/2 ML VIAL IVP STA ×2 (21:47→23:36)
[2018-06-30] MEDS ORDERED: SODIUM CHLORIDE 0.9% 1,000 ML IV STA ×3 (21:47→23:02)
[2018-06-30] MEDS ORDERED: PANTOPRAZOLE 40 MG/10 ML VIAL IVP STA (21:48)
--- NOTE | 2018-06-30 21:48 | ED ---
Nausea/Vomiting/Diarrhea HPI - General Chief complaint: Nausea/Vomiting/Diarrhea Stated complaint: Vomiting Time Seen by Provider: 06/30/18 21:47 Source: patient Mode of arrival: wheelchair Limitations: physical limitation - Related Data Home Medications Medication Instructions Recorded Confirmed Metoprolol Tartrate [Lopressor] 50 mg PO BID 06/18/16 04/09/18 Simvastatin [Zocor] 40 mg PO DAILY 11/01/16 04/09/18 Baclofen 10 mg PO DAILY PRN 12/04/17 04/09/18 Insulin NPL/Insulin Lispro 20 unit SQ DAILY 12/04/17 04/09/18 [humaLOG MIX 75-25 VIAL] Oxybutynin Chloride [Oxybutynin 10 mg PO DAILY 12/04/17 04/09/18 Chloride ER] glipiZIDE XL [Glucotrol XL] 5 mg PO DAILY 12/04/17 04/09/18 Apixaban [Eliquis] 5 mg PO DAILY 04/09/18 04/09/18 amLODIPine [Norvasc] 5 mg PO DAILY 04/09/18 04/09/18 metFORMIN HCL ER [Glucophage Xr] 500 mg PO DAILY 04/09/18 04/09/18 sitaGLIPtin [Januvia] 100 mg PO DAILY 04/09/18 04/09/18 Previous Rx's Medication Instructions Recorded Furosemide [Lasix] 40 mg PO DAILY #30 tablet 12/06/17 Losartan [Cozaar] 25 mg PO BID #60 tab 12/06/17 Spironolactone [Aldactone] 25 mg PO BID #60 tab 12/06/17 Morphine Sulfate Ir [MSIR] 15 mg PO Q6HR PRN 3 Days #6 tab 04/09/18 Allergies Allergy/AdvReac Type Severity Reaction Status Date / Time tetracycline Allergy Unknown Verified 06/30/18 21:40 fentanyl AdvReac "SKIN Verified 06/30/18 21:40 CRAWLS", HYPER Review of Systems ROS Statement: Those systems with pertinent positive or pertinent negative responses have been documented in the HPI. ROS Other: All systems not noted in ROS Statement are negative. Past Medical History Past Medical History: Atrial Fibrillation, Chest Pain / Angina, Heart Failure, Diabetes Mellitus, Hyperlipidemia, Hypertension, Osteoarthritis (OA), Pneumonia Additional Past Medical History / Comment(s): Paroxysmal Afib, POST OP INFECTION AFTER BACK SURGERY, CHRONIC BACK PAIN FROM T8 FX, difficulty walking d/t back pain, CHRONIC PERIPHERAL LEG EDEMA, UTIs, R humerus fracture. History of Any Multi-Drug Resistant Organisms: None Reported Past Surgical History: Back Surgery, Cholecystectomy, Orthopedic Surgery Additional Past Surgical History / Comment(s): 2015 LUMBAR SURGERY, FX NOSE REPAIR, BILATERAL CATARACT SURGERY, R WRIST CARPAL TUNNEL SURGERY, kyphoplasty T8 ON 06/26/16 AND ONE BEFORE. Past Anesthesia/Blood Transfusion Reactions: No Reported Reaction Additional Past Anesthesia/Blood Transfusion Reaction / Comment(s): NEVER HAD A BLOOD TRANSFUSION. Past Psychological History: No Psychological Hx Reported Smoking Status: Never smoker Past Alcohol Use History: None Reported Past Drug Use History: None Reported - Past Family History Father Family Medical History: Myocardial Infarction ([place]) Additional Family Medical History / Comment(s): FATHER AT AGE 52 OF AN [place] Mother Additional Family Medical History / Comment(s): MOTHER AT AGE 89 OF CELEBREX PROBLEM. General Exam Limitations: physical limitation Course Vital Signs 06/30/18 21:36 Temperature 98.1 F Pulse Rate 64 Respiratory 18 Rate Blood Pressure 131/55 O2 Sat by Pulse 95 Oximetry Disposition Referrals: Rox Parmar DO [Primary Care Provider] - 1-2 days
[2018-06-30] MEDS ORDERED: HYDROmorphone 1 MG/ML 1 ML SYRINGE IVP STA ×2 (21:51→23:36)
--- NOTE | 2018-06-30 21:59 | ED ---
Back Pain HPI - General Chief Complaint: Nausea/Vomiting/Diarrhea Stated Complaint: Vomiting Time Seen by Provider: 06/30/18 21:47 Source: patient, RN notes reviewed, old records reviewed Limitations: physical limitation - History of Present Illness Initial Comments: This is a 77-year-old female to the ER for evaluation today, patient is complaining of severe back pain, patient has history of chronic back pain with recent appointment for follow-up for further pain control. Patient developed a GI illness with nausea vomiting and diarrhea 2 days ago, currently unable to keep down her pain medications, back pain is escalating with persistent nausea vomiting. Patient denies fever or abdominal pain, no blood in her stool or vomit, no urinary issues MD Complaint: back pain, other (Nausea vomiting) -: days(s) (3) Similar Symptoms Previously: Yes Place: home Radiation: buttocks Severity: severe Severity scale (1-10): 8 Quality: aching Consistency: constant Improves With: medication Worsens With: movement Context: other Associated Symptoms: loss of appetite, nausea/vomiting Treatments Prior to Arrival: prescription analgesics - Related Data Home Medications Medication Instructions Recorded Confirmed Metoprolol Tartrate [Lopressor] 50 mg PO BID 06/18/16 06/30/18 Simvastatin [Zocor] 40 mg PO DAILY 11/01/16 06/30/18 Baclofen 10 mg PO DAILY PRN 12/04/17 06/30/18 Insulin NPL/Insulin Lispro 20 unit SQ DAILY 12/04/17 06/30/18 [humaLOG MIX 75-25 VIAL] Oxybutynin Chloride [Oxybutynin 10 mg PO DAILY 12/04/17 06/30/18 Chloride ER] glipiZIDE XL [Glucotrol XL] 5 mg PO DAILY 12/04/17 06/30/18 Apixaban [Eliquis] 5 mg PO DAILY 04/09/18 06/30/18 amLODIPine [Norvasc] 5 mg PO DAILY 04/09/18 06/30/18 sitaGLIPtin [Januvia] 100 mg PO DAILY 04/09/18 06/30/18 Previous Rx's Medication Instructions Recorded Furosemide [Lasix] 40 mg PO DAILY #30 tablet 12/06/17 Losartan [Cozaar] 25 mg PO BID #60 tab 12/06/17 Spironolactone [Aldactone] 25 mg PO BID #60 tab 12/06/17 Allergies Allergy/AdvReac Type Severity Reaction Status Date / Time tetracycline Allergy Unknown Verified 06/30/18 21:55 fentanyl AdvReac "SKIN Verified 06/30/18 21:55 CRAWLS", HYPER Review of Systems ROS Statement: Those systems with pertinent positive or pertinent negative responses have been documented in the HPI. ROS Other: All systems not noted in ROS Statement are negative. Past Medical History Past Medical History: Atrial Fibrillation, Chest Pain / Angina, Heart Failure, Diabetes Mellitus, Hyperlipidemia, Hypertension, Osteoarthritis (OA), Pneumonia Additional Past Medical History / Comment(s): Paroxysmal Afib, POST OP INFECTION AFTER BACK SURGERY, CHRONIC BACK PAIN FROM T8 FX, difficulty walking d/t back pain, CHRONIC PERIPHERAL LEG EDEMA, UTIs, R humerus fracture. History of Any Multi-Drug Resistant Organisms: None Reported Past Surgical History: Back Surgery, Cholecystectomy, Orthopedic Surgery Additional Past Surgical History / Comment(s): 2015 LUMBAR SURGERY, FX NOSE REPAIR, BILATERAL CATARACT SURGERY, R WRIST CARPAL TUNNEL SURGERY, kyphoplasty T8 ON 06/26/16 AND ONE BEFORE. Past Anesthesia/Blood Transfusion Reactions: No Reported Reaction Additional Past Anesthesia/Blood Transfusion Reaction / Comment(s): NEVER HAD A BLOOD TRANSFUSION. Past Psychological History: No Psychological Hx Reported Smoking Status: Never smoker Past Alcohol Use History: None Reported Past Drug Use History: None Reported - Past Family History Father Family Medical History: Myocardial Infarction ([place]) Additional Family Medical History / Comment(s): FATHER AT AGE 52 OF AN [place] Mother Additional Family Medical History / Comment(s): MOTHER AT AGE 89 OF CELEBREX PROBLEM. General Exam Limitations: physical limitation General appearance: alert, in no apparent distress, obese Head exam: Present: atraumatic, normocephalic, normal inspection Eye exam: Present: normal appearance, PERRL, EOMI. Absent: scleral icterus, conjunctival injection, periorbital swelling ENT exam: Present: normal exam, mucous membranes moist Neck exam: Present: normal inspection. Absent: tenderness, meningismus, lymphadenopathy Respiratory exam: Present: normal lung sounds bilaterally. Absent: respiratory distress, wheezes, rales, rhonchi, stridor Cardiovascular Exam: Present: regular rate, normal rhythm, normal heart sounds. Absent: systolic murmur, diastolic murmur, rubs, gallop, clicks GI/Abdominal exam: Present: soft, normal bowel sounds. Absent: distended, tenderness, guarding, rebound, rigid Extremities exam: Present: normal inspection, full ROM, normal capillary refill. Absent: tenderness, pedal edema, joint swelling, calf tenderness Back exam: Present: normal inspection Neurological exam: Present: alert, oriented X3, CN II-XII intact Psychiatric exam: Present: normal affect, normal mood Skin exam: Present: warm, dry, intact, normal color. Absent: rash Course Vital Signs 06/30/18 06/30/18 21:36 22:59 Temperature 98.1 F Pulse Rate 64 56 L Respiratory 18 18 Rate Blood Pressure 131/55 152/84 O2 Sat by Pulse 95 95 Oximetry - Reevaluation(s) Reevaluation #1: 06/30/18 22:28 Medical record is reviewed Reevaluation #2: 06/30/18 22:28 Has pain control Medical Decision Making - Medical Decision Making 77 female the ER for evasive chronic acute on chronic back pain with pain medication follow-up tomorrow, nausea vomiting not taking medication, symptoms improved resolved now. Patient can be discharged home - Lab Data Result diagrams: 06/30/18 22:13 06/30/18 22:13 Lab Results 06/30/18 06/30/18 06/30/18 Range/Units 22:13 22:13 22:13 WBC 9.6 (3.8-10.6) k/uL RBC 4.39 (3.80-5.40) m/uL Hgb 13.7 (11.4-16.0) gm/dL Hct 42.2 (34.0-46.0) % MCV 96.0 (80.0-100.0) fL MCH 31.1 (25.0-35.0) pg MCHC 32.4 (31.0-37.0) g/dL RDW 12.5 (11.5-15.5) % Plt Count 258 (150-450) k/uL Neutrophils % 86 % Lymphocytes % 8 % Monocytes % 4 % Eosinophils % 0 % Basophils % 0 % Neutrophils # 8.3 H (1.3-7.7) k/uL Lymphocytes # 0.7 L (1.0-4.8) k/uL Monocytes # 0.4 (0-1.0) k/uL Eosinophils # 0.0 (0-0.7) k/uL Basophils # 0.0 (0-0.2) k/uL PT (9.0-12.0) sec INR (<1.2) APTT (22.0-30.0) sec Sodium 139 (137-145) mmol/L Potassium 5.3 H (3.5-5.1) mmol/L Chloride 105 (98-107) mmol/L Carbon Dioxide 21 L (22-30) mmol/L Anion Gap 13 mmol/L BUN 54 H (7-17) mg/dL Creatinine 1.75 H (0.52-1.04) mg/dL Est GFR (CKD-EPI)AfAm 32 (>60 ml/min/1.73 sqM) Est GFR (CKD-EPI)NonAf 28 (>60 ml/min/1.73 sqM) Glucose 226 H (74-99) mg/dL Plasma Lactic Acid Gary (0.7-2.0) mmol/L Calcium 10.7 H (8.4-10.2) mg/dL Phosphorus 3.1 (2.5-4.5) mg/dL Magnesium 2.3 (1.6-2.3) mg/dL Total Bilirubin 0.9 (0.2-1.3) mg/dL AST 26 (14-36) U/L ALT 30 (9-52) U/L Alkaline Phosphatase 136 H (38-126) U/L Total Creatine Kinase 34 (30-135) U/L CK-MB (CK-2) 0.2 (0.0-2.4) ng/mL CK-MB (CK-2) Rel Index 0.6 Troponin I <0.012 (0.000-0.034) ng/mL Total Protein 8.2 (6.3-8.2) g/dL Albumin 4.9 (3.5-5.0) g/dL Urine Color Urine Appearance (Clear) Urine pH (5.0-8.0) Ur Specific [place] (1.001-1.035) Urine Protein (Negative) Urine Glucose (UA) (Negative) Urine Ketones (Negative) Urine Blood (Negative) Urine Nitrite (Negative) Urine Bilirubin (Negative) Urine Urobilinogen (<2.0) mg/dL Ur Leukocyte Esterase (Negative) Urine RBC (0-5) /hpf Urine WBC (0-5) /hpf Ur Squamous Epith Cells (0-4) /hpf Hyaline Casts (0-2) /lpf Urine Mucus (None) /hpf 06/30/18 06/30/18 06/30/18 Range/Units 22:13 22:13 22:13 WBC (3.8-10.6) k/uL RBC (3.80-5.40) m/uL Hgb (11.4-16.0) gm/dL Hct (34.0-46.0) % MCV (80.0-100.0) fL MCH (25.0-35.0) pg MCHC (31.0-37.0) g/dL RDW (11.5-15.5) % Plt Count (150-450) k/uL Neutrophils % % Lymphocytes % % Monocytes % % Eosinophils % % Basophils % % Neutrophils # (1.3-7.7) k/uL Lymphocytes # (1.0-4.8) k/uL Monocytes # (0-1.0) k/uL Eosinophils # (0-0.7) k/uL Basophils # (0-0.2) k/uL PT 10.1 (9.0-12.0) sec INR 1.0 (<1.2) APTT 23.9 (22.0-30.0) sec Sodium (137-145) mmol/L Potassium (3.5-5.1) mmol/L Chloride (98-107) mmol/L Carbon Dioxide (22-30) mmol/L Anion Gap mmol/L BUN (7-17) mg/dL Creatinine (0.52-1.04) mg/dL Est GFR (CKD-EPI)AfAm (>60 ml/min/1.73 sqM) Est GFR (CKD-EPI)NonAf (>60 ml/min/1.73 sqM) Glucose (74-99) mg/dL Plasma Lactic Acid Gary 2.6 H* (0.7-2.0) mmol/L Calcium (8.4-10.2) mg/dL Phosphorus (2.5-4.5) mg/dL Magnesium (1.6-2.3) mg/dL Total Bilirubin (0.2-1.3) mg/dL AST (14-36) U/L ALT (9-52) U/L Alkaline Phosphatase (38-126) U/L Total Creatine Kinase (30-135) U/L CK-MB (CK-2) (0.0-2.4) ng/mL CK-MB (CK-2) Rel Index Troponin I (0.000-0.034) ng/mL Total Protein (6.3-8.2) g/dL Albumin (3.5-5.0) g/dL Urine Color Yellow Urine Appearance Clear (Clear) Urine pH 5.0 (5.0-8.0) Ur Specific [place] 1.020 (1.001-1.035) Urine Protein Trace H (Negative) Urine Glucose (UA) Negative (Negative) Urine Ketones 1+ H (Negative) Urine Blood Negative (Negative) Urine Nitrite Negative (Negative) Urine Bilirubin Negative (Negative) Urine Urobilinogen <2.0 (<2.0) mg/dL Ur Leukocyte Esterase Small H (Negative) Urine RBC 1 (0-5) /hpf Urine WBC 5 (0-5) /hpf Ur Squamous Epith Cells 1 (0-4) /hpf Hyaline Casts 15 H (0-2) /lpf Urine Mucus Rare H (None) /hpf - EKG Data -: EKG Interpreted by Me (EKG shows sinus recurred 59, CO 170, QRS 88, QTc 451) Disposition Clinical Impression: Chronic back pain, Back pain, Nausea & vomiting Disposition: HOME SELF-CARE Condition: Good Instructions: Acute Nausea and Vomiting (ED) Is patient prescribed a controlled substance at d/c from ED?: No Referrals: Rox Parmar DO [Primary Care Provider] - 1-2 days
[2018-06-30 22:26] LABS: Basophils % (A) 0 %; Eosinophils % (A) 0 %; HCT 42.2 % (34.0-46.0); HGB 13.7 gm/dL (11.4-16.0); Lymphocytes # (A) 0.7 k/uL (1.0-4.8); Lymphocytes % (A) 8 %; MCH 31.1 pg (25.0-35.0); MCHC 32.4 g/dL (31.0-37.0); Mean Platelet Volume 7.6; Monocytes # (A) 0.4 k/uL (0-1.0); Monocytes % (A) 4 %; Neutrophils # (A) 8.3 k/uL (1.3-7.7); Neutrophils % (A) 86 %; Platelet Count 258 k/uL (150-450); RBC 4.39 m/uL (3.80-5.40); RDW 12.5 % (11.5-15.5); WBC 9.6 k/uL (3.8-10.6)
[2018-06-30 22:28] LABS: Appearance,Urine Clear (Clear); Bilirubin,Urine Negative (Negative); Blood,Urine Negative (Negative); Color,Urine Yellow; Glucose,Urine (UA) Negative (Negative); Hyaline Casts,Urine 15 /lpf (0-2); Ketones,Urine 1+ (Negative); Leukocyte Esterase,Urine Small (Negative); Mucus,Urine Rare /hpf; Nitrite,Urine Negative (Negative); Protein,Urine Trace (Negative); RBC,Urine 1 /hpf (0-5); Squamous Epithelial Cell,Urine 1 /hpf (0-4); Urobilinogen,Urine <2.0 mg/dL (<2.0); WBC,Urine 5 /hpf (0-5)
[2018-06-30 22:35] LABS: Creatine Kinase 34 U/L (30-135); Partial Thromboplastin Time 23.9 sec (22.0-30.0); Prothrombin Time 10.1 sec (9.0-12.0)
[2018-06-30 22:37] LABS: Albumin 4.9 g/dL (3.5-5.0); Calcium 10.7 mg/dL (8.4-10.2); Magnesium 2.3 mg/dL (1.6-2.3); Phosphorus 3.1 mg/dL (2.5-4.5); Potassium 5.3 mmol/L (3.5-5.1); Total Bilirubin 0.9 mg/dL (0.2-1.3); Total Protein 8.2 g/dL (6.3-8.2)
--- NOTE | 2018-06-30 22:39 | XR ---
EXAMINATION TYPE: XR abdomen acute w cxr DATE OF EXAM: 06/30/2018 COMPARISON: 12/25/2014 HISTORY: Atrial fibrillation. Heart failure. Abdominal pain and back pain. TECHNIQUE: Chest x-ray with supine and upright abdomen. FINDINGS: There is no heart failure nor confluent pneumonic infiltrate. Costophrenic angles are clear. Heart si ze is normal. There is multilevel thoracic vertebroplasty. There are clips from cholecystectomy. Ther e is no sign of intestinal obstruction or pneumoperitoneum. There is rectangular metal density over t he upper pelvis. This could be artifact. The bony pelvis is intact. There is no sign of a mass. There are no pathologic calcifications over the kidneys. IMPRESSION: Nonacute abdomen. No active cardiopulmonary disease. No adverse change compared to old exam.
[2018-06-30 22:48] LABS: Creatine Kinase MB 0.2 ng/mL (0.0-2.4); Troponin I <0.012 ng/mL (0.000-0.034)
[2018-06-30] MEDS ORDERED: LORazepam 2 MG/ML INJ IV STA (23:36)
[2018-07-01] MEDS ORDERED: HYDROmorphone 1 MG/ML 1 ML SYRINGE IVP STA (00:34)
[2018-07-01] MEDS ORDERED: PROCHLORPERAZINE 5 MG TAB PO PRN (00:55)
[2018-07-01] MEDS ORDERED: NALOXONE 0.4 MG/ML 1 ML VIAL IV PRN (00:55)
[2018-07-01] MEDS ORDERED: ALPRAZolam 0.25 MG TAB PO PRN (00:55)
[2018-07-01] MEDS ORDERED: BACLOFEN 10 MG TAB PO PRN (01:00)
[2018-07-01] MEDS: SODIUM CHLORIDE 0.9% 1,000 ML IV SCH ×3 (02:12→22:41)
[2018-07-01 02:24] VITALS: BMI 52.9
[2018-07-01 07:16] LABS: Glucose,Whole Blood 137 mg/dL (75-99)
[2018-07-01] MEDS: ONDANSETRON 4 MG/2 ML VIAL IVP PRN ×2 (07:23→21:30)
[2018-07-01] MEDS ORDERED: APIXABAN 5 MG TAB PO SCH (09:00)
[2018-07-01] MEDS ORDERED: LOSARTAN 25 MG TAB PO SCH (09:00)
[2018-07-01] MEDS ORDERED: SPIRONOLACTONE 25 MG TAB PO SCH (09:00)
[2018-07-01] MEDS: INSULIN ASPART 100 UNIT/ML 1 ML 10 ML VIAL SQ SCH ×4 (09:03→20:54)
[2018-07-01] MEDS: FAMOTIDINE 20 MG TAB PO SCH ×2 (09:04→21:31)
[2018-07-01] MEDS: amLODIPine 5 MG TAB PO SCH (09:04)
[2018-07-01] MEDS: METOPROLOL TARTRATE 50 MG TAB PO SCH ×2 (09:04→21:31)
[2018-07-01 12:04] LABS: Glucose,Whole Blood 152 mg/dL (75-99)
[2018-07-01] MEDS: HYDROmorphone 1 MG/ML 1 ML SYRINGE IVP PRN ×2 (14:11→18:44)
[2018-07-01 14:55] LABS: Calcium 9.6 mg/dL (8.4-10.2); Potassium 4.8 mmol/L (3.5-5.1)
--- NOTE | 2018-07-01 14:55 | P.HPIM ---
History of Present Illness 72-year-old pleasant female came in with complains of a nausea vomiting denied any significant abdominal pain does have chronic low back pain. Patient feels his body aches. Had nausea vomiting improved now patient was started on Protonix. Patient had any fever chills. Patient does have elevated creatinine to 1.7 had normal creatinine is around 13. has chronic low back pain has extensive back history with multiple back surgeries supposed to see paintings restorer today since she is in the hospital she is unable to see him. Patient has TENS device. She does not have any increased weakness or loss of bowel or bladder continence Review of Systems REVIEW OF SYSTEMS: CONSTITUTIONAL: No fever, no malaise, no fatigue. HEENT: No recent visual problems or hearing problems. Denied any sore throat. CARDIOVASCULAR: No chest pain, orthopnea, PND, no palpitations, no syncope. PULMONARY: No shortness of breath, no cough, no hemoptysis. GASTROINTESTINAL: No diarrhea, NEUROLOGICAL: No headaches, no weakness, no numbness. HEMATOLOGICAL: Denies any bleeding or petechiae. GENITOURINARY: Denies any burning micturition, frequency, or urgency. MUSCULOSKELETAL/RHEUMATOLOGICAL: As mentioned in HPI ENDOCRINE: Denies any polyuria or polydipsia. The rest of the 14-point review of systems is negative. Past Medical History Past Medical History: Atrial Fibrillation, Chest Pain / Angina, Diabetes Mellitus, Hyperlipidemia, Hypertension, Osteoarthritis (OA), Pneumonia Additional Past Medical History / Comment(s): Paroxysmal Afib, POST OP INFECTION AFTER BACK SURGERY, CHRONIC BACK PAIN FROM T8 FX, difficulty walking d/t back pain, CHRONIC PERIPHERAL LEG EDEMA, UTIs, R humerus fracture. History of Any Multi-Drug Resistant Organisms: None Reported Past Surgical History: Back Surgery, Cholecystectomy, Orthopedic Surgery Additional Past Surgical History / Comment(s): 2015 LUMBAR SURGERY, FX NOSE REPAIR, BILATERAL CATARACT SURGERY, R WRIST CARPAL TUNNEL SURGERY, kyphoplasty T8 ON 06/26/16 AND ONE BEFORE. Past Anesthesia/Blood Transfusion Reactions: No Reported Reaction Additional Past Anesthesia/Blood Transfusion Reaction / Comment(s): NEVER HAD A BLOOD TRANSFUSION. Past Psychological History: No Psychological Hx Reported Additional Psychological History / Comment(s): PT LIVES ALONE IN A [place]. SHE IS INDEPENDENT. SHE DRIVES A CAR. Smoking Status: Never smoker Past Alcohol Use History: None Reported Past Drug Use History: None Reported - Past Family History Father Family Medical History: Myocardial Infarction ([place]) Additional Family Medical History / Comment(s): FATHER AT AGE 52 OF AN [place] Mother Additional Family Medical History / Comment(s): MOTHER AT AGE 89 OF CELEBREX PROBLEM. Medications and Allergies Home Medications Medication Instructions Recorded Confirmed Type Metoprolol Tartrate [Lopressor] 50 mg PO BID 06/18/16 06/30/18 History Simvastatin [Zocor] 40 mg PO DAILY 11/01/16 06/30/18 History Baclofen 10 mg PO DAILY PRN 12/04/17 06/30/18 History Insulin NPL/Insulin Lispro 20 unit SQ DAILY 12/04/17 06/30/18 History [humaLOG MIX 75-25 VIAL] Oxybutynin Chloride [Oxybutynin 10 mg PO DAILY 12/04/17 06/30/18 History Chloride ER] glipiZIDE XL [Glucotrol XL] 5 mg PO DAILY 12/04/17 06/30/18 History Furosemide [Lasix] 40 mg PO DAILY #30 tablet 12/06/17 06/30/18 Rx Losartan [Cozaar] 25 mg PO BID #60 tab 12/06/17 06/30/18 Rx Spironolactone [Aldactone] 25 mg PO BID #60 tab 12/06/17 06/30/18 Rx Apixaban [Eliquis] 5 mg PO DAILY 04/09/18 06/30/18 History amLODIPine [Norvasc] 5 mg PO DAILY 04/09/18 06/30/18 History sitaGLIPtin [Januvia] 100 mg PO DAILY 04/09/18 06/30/18 History Ondansetron Odt [Zofran ODT] 4 mg PO Q8HR PRN #30 tab 06/30/18 Rx Allergies Allergy/AdvReac Type Severity Reaction Status Date / Time tetracycline Allergy Unknown Verified 06/30/18 21:55 fentanyl AdvReac "SKIN Verified 06/30/18 21:55 CRAWLS", HYPER Physical Exam Vitals: Vital Signs Temp Pulse Pulse Resp BP BP Pulse Ox 07/01/18 07:32 97.5 F L 63 15 161/79 99 06/30/18 22:59 56 L 18 152/84 95 06/30/18 21:36 98.1 F 64 18 131/55 95 Intake and Output 06/30/18 07/01/18 07/01/18 22:59 06:59 14:59 Intake Total 1200 Balance 1200 Intake: Amount of Fluid Infused ( 750 ml) Intake, IV Titration 450 Amount Sodium Chloride 0.9% 1, 450 000 ml @ 75 mls/hr IV . [id number] YOSSI Rx#:[id number] Other: Weight 127.006 kg 127.006 kg -Nausea vomiting: Secondary to gastritis or gastroenteritis patient is on Protonix which will be continued and patient the was started on diet and will advance her diet her nausea vomiting improved today -Acute renal failure secondary to prerenal azotemia multiple episodes of vomiting about about 15 yesterday continue with the IV fluids. -Hypertension: Blood pressure is bit elevated because of the renal failure I'll hold off on losartan. Her blood pressure is expected to be high because of IV fluids and holding off on losartan and repeat basic metabolic profile tomorrow -Chronic low back pain we will obtain consultation from a pain management specialists consulted her complicated history of back pain -Hypertension -Hyperlipidemia -Type 2 diabetes mellitus patient is presently on sliding scale insulin only once she is able to eat full diet patient will be started back on her insulin regimen along with Januvia -Atrial fibrillation, paroxysmal A. fib rate controlled resume her anticoagulation -Obesity: Counseling was provided Results CBC & Chem 7: 06/30/18 22:13 06/30/18 22:13 Labs: Abnormal Lab Results - Last 24 Hours (Table) 06/30/18 06/30/18 06/30/18 Range/Units 22:13 22:13 22:13 Neutrophils # 8.3 H (1.3-7.7) k/uL Lymphocytes # 0.7 L (1.0-4.8) k/uL Potassium 5.3 H (3.5-5.1) mmol/L Carbon Dioxide 21 L (22-30) mmol/L BUN 54 H (7-17) mg/dL Creatinine 1.75 H (0.52-1.04) mg/dL Glucose 226 H (74-99) mg/dL POC Glucose (mg/dL) (75-99) mg/dL Plasma Lactic Acid Gary 2.6 H* (0.7-2.0) mmol/L Calcium 10.7 H (8.4-10.2) mg/dL Alkaline Phosphatase 136 H (38-126) U/L Urine Protein (Negative) Urine Ketones (Negative) Ur Leukocyte Esterase (Negative) Hyaline Casts (0-2) /lpf Urine Mucus (None) /hpf 06/30/18 07/01/18 07/01/18 Range/Units 22:13 07:02 11:45 Neutrophils # (1.3-7.7) k/uL Lymphocytes # (1.0-4.8) k/uL Potassium (3.5-5.1) mmol/L Carbon Dioxide (22-30) mmol/L BUN (7-17) mg/dL Creatinine (0.52-1.04) mg/dL Glucose (74-99) mg/dL POC Glucose (mg/dL) 137 H 152 H (75-99) mg/dL Plasma Lactic Acid Gary (0.7-2.0) mmol/L Calcium (8.4-10.2) mg/dL Alkaline Phosphatase (38-126) U/L Urine Protein Trace H (Negative) Urine Ketones 1+ H (Negative) Ur Leukocyte Esterase Small H (Negative) Hyaline Casts 15 H (0-2) /lpf Urine Mucus Rare H (None) /hpf Microbiology - Last 24 Hours (Table) 06/30/18 22:13 Urine Culture - Preliminary Urine,Voided Thrombosis Risk Factor Assmnt - Choose All That Apply Any of the Below Risk Factors Present?: No Each Risk Factor Represents 3 Points: Age 75 years or older Thrombosis Risk Factor Assessment Total Risk Factor Score: 3 Thrombosis Risk Factor Assessment Level: Moderate Risk
[2018-07-01 17:59] LABS: Glucose,Whole Blood 114 mg/dL (75-99)
[2018-07-01 20:49] LABS: Glucose,Whole Blood 149 mg/dL (75-99)
[2018-07-01] MEDS: APIXABAN 5 MG TAB PO SCH (21:31)
[2018-07-02 01:40] VITALS: RESP 16
[2018-07-02] MEDS: SODIUM CHLORIDE 0.9% 1,000 ML IV SCH ×2 (04:32→09:30)
[2018-07-02 07:21] LABS: Glucose,Whole Blood 156 mg/dL (75-99)
[2018-07-02 08:43] LABS: Calcium 9.5 mg/dL (8.4-10.2); Potassium 5.2 mmol/L (3.5-5.1)
[2018-07-02] MEDS ORDERED: ATORVASTATIN 20 MG TAB PO SCH (09:00)
[2018-07-02] MEDS: FAMOTIDINE 20 MG TAB PO SCH (09:25)
[2018-07-02] MEDS: METOPROLOL TARTRATE 50 MG TAB PO SCH (09:25)
[2018-07-02] MEDS: amLODIPine 5 MG TAB PO SCH (09:25)
[2018-07-02] MEDS: INSULIN ASPART 100 UNIT/ML 1 ML 10 ML VIAL SQ SCH ×2 (09:25→12:12)
[2018-07-02] MEDS: APIXABAN 5 MG TAB PO SCH (09:25)
--- NOTE | 2018-07-02 09:25 | P.PAINCN ---
History of Present Illness - Reason for Consult Consult date: 07/02/18 Low back pain - Chief Complaint Low back pain - History of Present Illness Ellen 77-year-old female presents to the hospital yesterday for GI upset. She has a history of chronic low back pain. She was possibly seen her pain clinic yesterday as a new patient consult for that reason we are consulted in the hospital. She was going to present to the pain clinic for chronic low back pain. She has a history of multiple low back surgeries and most recently had a thoracic kyphoplasty was done in April. She says she has low back pain which she's been doing for 30 years. She reports a continued low back pain without any radiation into her lower extremities. She feels her low back pain has been getting worse over the past years. She reports a sharp and aching type pain which is pretty common to her. Over the past couple days she felt pain up a little bit higher over the paraspinal muscles on the left and the right side. Bowel or bladder incontinence. She denied any lower extremity weakness, numbness, tingling. She reports she has fatigue with standing up or sitting a prolonged period. She also has chronic right knee pain which limits her ability to move her right leg significantly. She does not use any narcotic pain medications regularly where she reports she does have them available to her. She does not use any muscle relaxants. She has not had any pain injections recently. Patient is on anticoagulation.. Review of Systems 12 point review of systems is done and is negative except as noted in the HPI Past Medical History Past Medical History: Atrial Fibrillation, Chest Pain / Angina, Diabetes Mellitus, Hyperlipidemia, Hypertension, Osteoarthritis (OA), Pneumonia Additional Past Medical History / Comment(s): Paroxysmal Afib, POST OP INFECTION AFTER BACK SURGERY, CHRONIC BACK PAIN FROM T8 FX, difficulty walking d/t back pain, CHRONIC PERIPHERAL LEG EDEMA, UTIs, R humerus fracture. History of Any Multi-Drug Resistant Organisms: None Reported Past Surgical History: Back Surgery, Cholecystectomy, Orthopedic Surgery Additional Past Surgical History / Comment(s): 2015 LUMBAR SURGERY, FX NOSE REPAIR, BILATERAL CATARACT SURGERY, R WRIST CARPAL TUNNEL SURGERY, kyphoplasty T8 ON 06/26/16 AND ONE BEFORE. Past Anesthesia/Blood Transfusion Reactions: No Reported Reaction Additional Past Anesthesia/Blood Transfusion Reaction / Comm: NEVER HAD A BLOOD TRANSFUSION. Past Psychological History: No Psychological Hx Reported Additional Psychological History / Comment(s): PT LIVES ALONE IN A [place] F[place]. SHE IS INDEPENDENT. SHE DRIVES A CAR. Smoking Status: Never smoker Past Alcohol Use History: None Reported Past Drug Use History: None Reported - Past Family History Father Family Medical History: Myocardial Infarction ([place]) Additional Family Medical History / Comment(s): FATHER AT AGE 52 OF AN [place] Mother Additional Family Medical History / Comment(s): MOTHER AT AGE 89 OF CELEBREX PROBLEM. Medications and Allergies Home Medications Medication Instructions Recorded Confirmed Type Metoprolol Tartrate [Lopressor] 50 mg PO BID 06/18/16 06/30/18 History Simvastatin [Zocor] 40 mg PO DAILY 11/01/16 06/30/18 History Baclofen 10 mg PO DAILY PRN 12/04/17 06/30/18 History Insulin NPL/Insulin Lispro 20 unit SQ DAILY 12/04/17 06/30/18 History [humaLOG MIX 75-25 VIAL] Oxybutynin Chloride [Oxybutynin 10 mg PO DAILY 12/04/17 06/30/18 History Chloride ER] glipiZIDE XL [Glucotrol XL] 5 mg PO DAILY 12/04/17 06/30/18 History Furosemide [Lasix] 40 mg PO DAILY #30 tablet 12/06/17 06/30/18 Rx Losartan [Cozaar] 25 mg PO BID #60 tab 12/06/17 06/30/18 Rx Spironolactone [Aldactone] 25 mg PO BID #60 tab 12/06/17 06/30/18 Rx Apixaban [Eliquis] 5 mg PO DAILY 04/09/18 06/30/18 History amLODIPine [Norvasc] 5 mg PO DAILY 04/09/18 06/30/18 History sitaGLIPtin [Januvia] 100 mg PO DAILY 04/09/18 06/30/18 History Ondansetron Odt [Zofran ODT] 4 mg PO Q8HR PRN #30 tab 06/30/18 Rx Allergies Allergy/AdvReac Type Severity Reaction Status Date / Time tetracycline Allergy Unknown Verified 06/30/18 21:55 fentanyl AdvReac "SKIN Verified 06/30/18 21:55 CRAWLS", HYPER Physical Exam Vitals: Vital Signs Temp Pulse Resp BP Pulse Ox 07/02/18 07:13 98.3 F 67 16 126/68 95 07/02/18 00:36 98.0 F 63 16 116/52 95 07/01/18 19:15 98.4 F 79 18 149/72 94 L 07/01/18 15:15 98.2 F 66 19 146/79 96 Intake and Output 07/01/18 07/02/18 07/02/18 22:59 06:59 14:59 Intake Total 1240 1490 Output Total 50 Balance 1190 1490 Intake: Intake, IV Titration 1000 1250 Amount Sodium Chloride 0.9% 1, 1000 1250 000 ml @ 125 mls/hr IV . Q8H [facility] Rx#:[id number] Oral 240 240 Output: Emesis 50 Other: # Voids 3 3 General: Awake and alert oriented 3 no distress, obese Respiratory exam: No audible wheezing no accessory muscle usage Cardiovascular exam: regular rate, palpable bilateral pulses, no lower extremity edema Abdominal exam: No distention nontender to palpation Cervical spine: Normal alignment, Spurling's negative, facet loading negative, full range of motion is normal. Pinking Machine Operator strength is normal. Lumbar spine: Loss of lumbar lordosis, surgical scar is well-healed, TENS unit is in place in the left and on the right side of her back. normal alignment, tender to palpation over bilateral paraspinal muscles, facet loading is positive bilaterally. Straight leg raise is negative bilateral.. Sacroiliac joints: She does have tenderness to to palpation, Gaenselon positive bilateral. Unable to perform Omid's test. Neuro exam: Normal sensation in bilateral upper extremities, deep tendon reflexes are 2+ bilateral upper extremities. Normal sensation in bilateral lower extremities. Deep tendon reflexes are 2+ in lower extremities Psych exam: Cooperative, appropriate mood Results CBC & Chem 7: 06/30/18 22:13 07/02/18 07:10 Labs: Abnormal Lab Results - Last 24 Hours (Table) 07/01/18 07/01/18 07/01/18 Range/Units 11:45 14:16 17:56 Potassium (3.5-5.1) mmol/L Chloride 111 H (98-107) mmol/L BUN 40 H (7-17) mg/dL Creatinine 1.44 H (0.52-1.04) mg/dL Glucose 152 H (74-99) mg/dL POC Glucose (mg/dL) 152 H 114 H (75-99) mg/dL 07/01/18 07/02/18 07/02/18 Range/Units 20:36 07:08 07:10 Potassium 5.2 H (3.5-5.1) mmol/L Chloride 113 H (98-107) mmol/L BUN 30 H (7-17) mg/dL Creatinine 1.31 H (0.52-1.04) mg/dL Glucose 157 H (74-99) mg/dL POC Glucose (mg/dL) 149 H 156 H (75-99) mg/dL Microbiology - Last 24 Hours (Table) 06/30/18 22:13 Urine Culture - Final Urine,Voided Assessment and Plan Assessment: #1 lumbar spondylosis without myelopathy #2 lumbar postlaminectomy syndrome #3 sacroiliitis Plan: I feel there is no reflex symptoms for today's back pain. I think the patient has acute myofascial pain that appears to be resolving with the TENS unit and medications. I think the patient would benefit from Robaxin 750 mg 3 times per day for the next 1 week. I do not believe any imaging or any further workup is necessary at this point. She is on continued anticoagulation and we will see her in the clinic for follow-up soon as she would like. We'll discuss other options with the patient and on the outpatient. PQRS Measure Charge Sheet PQRS Narrative: Smoking Status Never smoker Blood Pressure [Right Arm] 126/68 Blood Pressure 152/84 Pain Intensity [Back] 8 Pain Intensity 8 Pain Scale Used Numeric (1 - 10) Scale Used Non Verbal Pain Indicator Home Medications: Ambulatory Orders Metoprolol Tartrate [Lopressor] 50 mg PO BID 06/18/16 Simvastatin [Zocor] 40 mg PO DAILY 11/01/16 Baclofen 10 mg PO DAILY PRN 12/04/17 Insulin NPL/Insulin Lispro [humaLOG MIX 75-25 VIAL] 20 unit SQ DAILY 12/04/17 Oxybutynin Chloride [Oxybutynin Chloride ER] 10 mg PO DAILY 12/04/17 glipiZIDE XL [Glucotrol XL] 5 mg PO DAILY 12/04/17 Furosemide [Lasix] 40 mg PO DAILY #30 tablet 12/06/17 Losartan [Cozaar] 25 mg PO BID #60 tab 12/06/17 Spironolactone [Aldactone] 25 mg PO BID #60 tab 12/06/17 Apixaban [Eliquis] 5 mg PO DAILY 04/09/18 amLODIPine [Norvasc] 5 mg PO DAILY 04/09/18 sitaGLIPtin [Januvia] 100 mg PO DAILY 04/09/18 Ondansetron Odt [Zofran ODT] 4 mg PO Q8HR PRN #30 tab 06/30/18
[2018-07-02 11:35] LABS: Glucose,Whole Blood 121 mg/dL (75-99)
[2018-07-02] MEDS ORDERED: METHOCARBAMOL 750 MG TAB PO SCH (13:00)
--- NOTE | 2018-07-02 15:01 | P.DS ---
Providers Date of admission: 07/01/18 01:02 Attending physician: Rodrigo Dietrich Consults: 07/01/18 14:07 Consult to Anesthesia Routine Consulting Provider: Anesthesia,Services Consult Reason/Comments: pain control Primary care physician: Rox Parmar [facility] Course: 72-year-old admitted for nausea vomiting secondary to gastritis, patient has acute renal failure improved creatinine with IV fluids. Patient had normal ejection fraction and do not believe patient will occur diuretic therapy which will be discontinued that led to her renal dysfunction patient's creatinine is 1.31 now baseline is normal and when she came in it was 1.75. Losartan and spironolactone will be discontinued because of hyperkalemia. She was evaluated pain management and the the recommending Robaxin-750 3 times a day which are prescribed and patient will be discharged today her pain is better controlled today. PHYSICAL EXAMINATION: GENERAL: The patient is alert and oriented x3, not in any acute distress. Well developed, well nourished. HEENT: Pupils are round and equally reacting to light. EOMI. No scleral icterus. No conjunctival pallor. Normocephalic, atraumatic. No pharyngeal erythema. No thyromegaly. CARDIOVASCULAR: S1 and S2 present. No murmurs, rubs, or gallops. PULMONARY: Chest is clear to auscultation, no wheezing or crackles. ABDOMEN: Soft, nontender, nondistended, normoactive bowel sounds. No palpable organomegaly. MUSCULOSKELETAL: No joint swelling or deformity. EXTREMITIES: No cyanosis, clubbing, or pedal edema. NEUROLOGICAL: Gross neurological examination did not reveal any focal deficits. SKIN: No rashes. -Nausea vomiting: Secondary to gastritis or gastroenteritis -Acute renal failure secondary to prerenal azotemia multiple episodes of vomiting with IV fluids and losartan, spiral Aldactone and Lasix contributed to renal failure -Hypertension: -hyperkalemia -Chronic low back pain we will obtain consultation from a pain management specialists consulted her complicated history of back pain -Hypertension -Hyperlipidemia -Type 2 diabetes mellitus -Atrial fibrillation, paroxysmal A. fib rate controlled resume her anticoagulation -Obesity: Counseling was provided Patient Condition at Discharge: Good Plan - Discharge Summary Discharge Rx Participant: Yes New Discharge Prescriptions: New Ondansetron Odt [Zofran ODT] 4 mg PO Q8HR PRN #30 tab PRN Reason: nausea/vomiting Methocarbamol [Robaxin-750] 750 mg PO TID #21 tablet Discontinued Losartan [Cozaar] 25 mg PO BID #60 tab Furosemide [Lasix] 40 mg PO DAILY #30 tablet No Action Metoprolol Tartrate [Lopressor] 50 mg PO BID Simvastatin [Zocor] 40 mg PO DAILY Baclofen 10 mg PO DAILY PRN PRN Reason: BACK PAIN Insulin NPL/Insulin Lispro [humaLOG MIX 75-25 VIAL] 20 unit SQ DAILY glipiZIDE XL [Glucotrol XL] 5 mg PO DAILY Oxybutynin Chloride [Oxybutynin Chloride ER] 10 mg PO DAILY Spironolactone [Aldactone] 25 mg PO BID #60 tab amLODIPine [Norvasc] 5 mg PO DAILY sitaGLIPtin [Januvia] 100 mg PO DAILY Apixaban [Eliquis] 5 mg PO DAILY Discharge Medication List Metoprolol Tartrate [Lopressor] 50 mg PO BID 06/18/16 [History] Simvastatin [Zocor] 40 mg PO DAILY 11/01/16 [History] Baclofen 10 mg PO DAILY PRN 12/04/17 [History] Insulin NPL/Insulin Lispro [humaLOG MIX 75-25 VIAL] 20 unit SQ DAILY 12/04/17 [ History] Oxybutynin Chloride [Oxybutynin Chloride ER] 10 mg PO DAILY 12/04/17 [History] glipiZIDE XL [Glucotrol XL] 5 mg PO DAILY 12/04/17 [History] Spironolactone [Aldactone] 25 mg PO BID #60 tab 12/06/17 [Rx] Apixaban [Eliquis] 5 mg PO DAILY 04/09/18 [History] amLODIPine [Norvasc] 5 mg PO DAILY 04/09/18 [History] sitaGLIPtin [Januvia] 100 mg PO DAILY 04/09/18 [History] Ondansetron Odt [Zofran ODT] 4 mg PO Q8HR PRN #30 tab 06/30/18 [Rx] Methocarbamol [Robaxin-750] 750 mg PO TID #21 tablet 07/02/18 [Rx] Follow up Appointment(s)/Referral(s): Rox Parmar DO [Primary Care Provider] - 07/07/18 11:20 am (With Corrie) Patient Instructions/Handouts: Acute Nausea and Vomiting (ED) Activity/Diet/Wound Care/Special Instructions: Follow up at the Pain Clinic Number [phone] Need referal and current MRI Discharge Disposition: HOME WITH HOME HEALTH SERVICES
[2018-07-02 15:07] VITALS: BP 116/59; PULSE 57; TEMP 97.6
[2018-07-03] MEDS ORDERED: FAMOTIDINE 20 MG TAB PO SCH (09:00)
== END 2018-07-02 15:36 | disposition home health service (06) ==
LOC: EC 21:17 → 4SSUR 07-01 01:02
PROVIDERS: ADMIT Hospitalist; ATTEND Hospitalist
DX: R11.2 Nausea with vomiting, unspecified (principal); K52.9 Noninfective gastroenteritis and colitis, unspecified; K29.70 Gastritis, unspecified, without bleeding; N17.9 Acute kidney failure, unspecified; E78.5 Hyperlipidemia, unspecified; E11.9 Type 2 diabetes mellitus without complications; I48.0 Paroxysmal atrial fibrillation; E66.9 Obesity, unspecified; Z68.43 Body mass index [BMI] 50.0-59.9, adult; M25.561 Pain in right knee; M19.90 Unspecified osteoarthritis, unspecified site; E87.5 Hyperkalemia; M47.816 Spondylosis without myelopathy or radiculopathy, lumbar region; M96.1 Postlaminectomy syndrome, not elsewhere classified; M46.1 Sacroiliitis, not elsewhere classified; Z87.01 Personal history of pneumonia (recurrent); Z87.440 Personal history of urinary (tract) infections; Z90.49 Acquired absence of other specified parts of digestive tract; Z82.49 Family history of ischemic heart disease and other diseases of the circulatory system; Z79.4 Long term (current) use of insulin; Z79.899 Other long term (current) drug therapy; Z79.01 Long term (current) use of anticoagulants; Z79.84 Long term (current) use of oral hypoglycemic drugs; Z88.1 Allergy status to other antibiotic agents; Z88.5 Allergy status to narcotic agent; I50.9 Heart failure, unspecified; I11.0 Hypertensive heart disease with heart failure
CPT/HCPCS: 96376 ×3; 96361 ×3; 96374; 96375; 99285; 36415; 93005; 80053; 80048 ×2; 82550; 82553; 83605 ×2; 83735; 84100; 84484; 85025; 85610; 85730; 81001; 87086; 74022; G0378 ×2; S0183; J2060; J2405 ×2; J1170 ×2; C9113

== ENCOUNTER → 2018-07-08 | Outpatient (CLI) | payer MEDICARE ==
[2018-07-08 13:34] VITALS: BP 151/72; PULSE 53; RESP 20
--- NOTE | 2018-07-08 13:58 | P.PAINCN ---
History of Present Illness - Reason for Consult Consult date: 07/08/18 Intractable low back pain - Chief Complaint Intractable back pain - History of Present Illness This a 77-year-old woman with a history of multiple compression fractures and subsequent kyphoplasty she presents today to our clinic for treatment of her back pain. She reports his pain can migrate from one side to the other. She uses a TENS unit to treat this. It does not radiate into her legs or arms. She has had some benefit from the kyphoplasty procedures. She has not participated in physical therapy recently. She denies bowel or bladder dysfunction associated with this diagnosis. Review of Systems Intractable back pain, fatigue, shortness of breath with exertion Past Medical History Past Medical History: Atrial Fibrillation, Chest Pain / Angina, Heart Failure, Diabetes Mellitus, Hyperlipidemia, Hypertension, Osteoarthritis (OA), Pneumonia Additional Past Medical History / Comment(s): Paroxysmal Afib, POST OP INFECTION AFTER BACK SURGERY, CHRONIC BACK PAIN FROM T8 FX, difficulty walking d/t back pain, CHRONIC PERIPHERAL LEG EDEMA, UTIs, R humerus fracture. History of Any Multi-Drug Resistant Organisms: None Reported Past Surgical History: Back Surgery, Cholecystectomy, Orthopedic Surgery Additional Past Surgical History / Comment(s): 2015 LUMBAR SURGERY, FX NOSE REPAIR, BILATERAL CATARACT SURGERY, R WRIST CARPAL TUNNEL SURGERY, kyphoplasty T8 ON 06/26/16 AND ONE BEFORE. Past Anesthesia/Blood Transfusion Reactions: No Reported Reaction Additional Past Anesthesia/Blood Transfusion Reaction / Comm: NEVER HAD A BLOOD TRANSFUSION. Past Psychological History: No Psychological Hx Reported Additional Psychological History / Comment(s): PT LIVES ALONE IN A [place] FLOOR [place]. SHE IS INDEPENDENT. SHE DRIVES A CAR. Smoking Status: Never smoker Past Alcohol Use History: None Reported Past Drug Use History: None Reported - Past Family History Father Family Medical History: Myocardial Infarction ([place]) Additional Family Medical History / Comment(s): FATHER AT AGE 52 OF AN [place] Mother Additional Family Medical History / Comment(s): MOTHER AT AGE 89 OF CELEBREX PROBLEM. Medications and Allergies Home Medications Medication Instructions Recorded Confirmed Type Metoprolol Tartrate [Lopressor] 50 mg PO BID 06/18/16 07/08/18 History Simvastatin [Zocor] 40 mg PO DAILY 11/01/16 07/08/18 History Baclofen 10 mg PO DAILY PRN 12/04/17 07/08/18 History Insulin NPL/Insulin Lispro 20 unit SQ DAILY 12/04/17 07/08/18 History [humaLOG MIX 75-25 VIAL] Oxybutynin Chloride [Oxybutynin 10 mg PO DAILY 12/04/17 07/08/18 History Chloride ER] glipiZIDE XL [Glucotrol XL] 5 mg PO DAILY 12/04/17 07/08/18 History Apixaban [Eliquis] 5 mg PO DAILY 04/09/18 07/08/18 History amLODIPine [Norvasc] 5 mg PO DAILY 04/09/18 07/08/18 History sitaGLIPtin [Januvia] 100 mg PO DAILY 04/09/18 07/08/18 History Ondansetron Odt [Zofran ODT] 4 mg PO Q8HR PRN #30 tab 06/30/18 07/08/18 Rx Methocarbamol [Robaxin-750] 750 mg PO TID #21 tablet 07/02/18 07/08/18 Rx Omeprazole [PriLOSEC] 40 mg PO AC-BRKFST #14 capsule. 07/02/18 07/08/18 Rx Allergies Allergy/AdvReac Type Severity Reaction Status Date / Time tetracycline Allergy Unknown Verified 07/08/18 13:14 fentanyl AdvReac "SKIN Verified 07/08/18 13:14 CRAWLS", HYPER Physical Exam Vitals: Vital Signs Pulse Resp BP Pulse Ox 07/08/18 13:16 53 L 20 151/72 97 Intake and Output 07/07/18 07/08/18 07/08/18 22:59 06:59 14:59 Other: Weight 127.006 kg General: The patient is alert and oriented. Patient is not sedated Patient answers all question appropriately. She walks with a lumbering gait. Cardiac: Heart is regular in rate and rhythm Respiratory: Clear to auscultation. No audible wheezes. Abdomen: Soft nontender nondistended. Musculoskeletal: Strength is normal bilaterally. Sensation is normal bilaterally. Straight leg raise is negative bilaterally. She is very tender to palpation on her back on the left side. This is in areas lateral to her spine. She does not have any direct tenderness over her spine. Neurological: Reflexes are preserved and symmetric bilaterally. Assessment and Plan (1) Myofascial pain syndrome Narrative/Plan: Plan of Care 1. Medications:[] Patient has previously been prescribed opiates as well as benzodiazepines. I think this commendation is unwise given her body habitus and age. I would recommend that she treat her pain currently with Tylenol and look for nonpharmacologic ways to assist in reducing her suffering. 2. Interventions: We'll schedule patient for trigger point injections in the bilateral trapezius, rhomboid, latissimus, quadratus lumborum. She currently takes a blood thinner. She will need to discontinue this under the guidance of her flame gouger. 3. Referrals: I have referred the patient for physical therapy and warm water therapy. I also referred her back to her primary care physician for weight loss management. 4. Testing:None 5. Follow-up: Trigger point injections if physical therapy is not successful for her. Current Visit: Yes Status: Acute Code(s): M79.18 - MYALGIA, OTHER SITE SNOMED Code(s): 536346890 (2) Morbid obesity Current Visit: No Status: Acute Code(s): E66.01 - MORBID (SEVERE) OBESITY DUE TO EXCESS CALORIES SNOMED Code(s): 122263121 PQRS Measure Charge Sheet Measure #130: Documentation of Current Meds in Medical Chart: Patient's medications documented in chart Measure #226: Tobacco Use: Screen & Cessation Intervention: Pt not a tobacco user Measure #111: Pneumonia Vaccination: Pneumococcal vaccine NOT administered or previously given Measure #47: Advance Care Plan: Advance care planning discussed & documented, pt chose/unable to give Measure #412: Opioid Treatment Agreement: No documentation of signed opioid treatment agreement Measure #408: Opioid Therapy Follow-up Evaluation: Patient had NO f/u eval minimum every 3 months during opioid therapy Measure #317: Preventitive Care & Scrn High Bld Press & F/U: Pre-hypertensive or hypertensive BP documented, pt will f/u with PCP Measure #128: Body Mass Index (BMI) Screening & Follow-up: BMI documented ABOVE normal parameters - f/u documented Measure #131: Pain Assessment & Follow-up: Pain positive & plan documented Measure #431: Unhealthy Alcohol Use Preventative Care & Scrn: Patient not identified as an unhealthy alcohol user PQRS Narrative: Smoking Status Never smoker Do You Want the Pneumonia No Vaccine AT THIS TIME? Blood Pressure 151/72 Pain Intensity [Left Neck] 4 Pain Intensity [Upper Back] 10 Scale Used Numeric (1 - 10) Hx Alcohol Use (MH) No Home Medications: Ambulatory Orders Metoprolol Tartrate [Lopressor] 50 mg PO BID 06/18/16 Simvastatin [Zocor] 40 mg PO DAILY 11/01/16 Baclofen 10 mg PO DAILY PRN 12/04/17 Insulin NPL/Insulin Lispro [humaLOG MIX 75-25 VIAL] 20 unit SQ DAILY 12/04/17 Oxybutynin Chloride [Oxybutynin Chloride ER] 10 mg PO DAILY 12/04/17 glipiZIDE XL [Glucotrol XL] 5 mg PO DAILY 12/04/17 Apixaban [Eliquis] 5 mg PO DAILY 04/09/18 amLODIPine [Norvasc] 5 mg PO DAILY 04/09/18 sitaGLIPtin [Januvia] 100 mg PO DAILY 04/09/18 Ondansetron Odt [Zofran ODT] 4 mg PO Q8HR PRN #30 tab 06/30/18 Methocarbamol [Robaxin-750] 750 mg PO TID #21 tablet 07/02/18 Omeprazole [PriLOSEC] 40 mg PO TEDDY-BRKFST #14 capsule. 07/02/18
== END | disposition home or self-care (01) ==
LOC: PNWHC3 12:45
PROVIDERS: ATTEND Pain Medicine Pain Medicine
DX: Z53.9 Procedure and treatment not carried out, unspecified reason (principal)

== ENCOUNTER 2019-03-28 12:08 | Inpatient (IN) | payer MEDICARE ==
[2019-03-28] MEDS ORDERED: IPRATROPIUM-ALBUTEROL 3 ML NEB INHALATION STA (12:27)
--- NOTE | 2019-03-28 12:30 | ED ---
General Adult HPI - General Chief complaint: Shortness of Breath Stated complaint: SOB Time Seen by Provider: 03/28/19 12:23 Source: patient, RN notes reviewed Mode of arrival: ambulatory Limitations: no limitations - History of Present Illness Initial comments: Patient is a pleasant 78-year-old female presenting to the emergency Department with complaints of difficulty in breathing. Patient may have had minimal symptoms last night however symptoms mostly started this morning. Patient believes her heart rate is normally a little bit on the slow side however unclear how slow. Patient did take her medications this morning. Patient does take medications for atrial fibrillation. No history of previous dyspnea. Patient does admit to having mild leg swelling however states this is chronic and unchanged. No chest pain. No fever. Patient does have a chronic cough over the past couple of years and has been evaluated for this. Cough is also unchanged. - Related Data Home Medications Medication Instructions Recorded Confirmed Metoprolol Tartrate [Lopressor] 50 mg PO BID 06/18/16 03/28/19 Simvastatin [Zocor] 40 mg PO DAILY 11/01/16 03/28/19 Oxybutynin Chloride [Oxybutynin 10 mg PO DAILY 12/04/17 03/28/19 Chloride ER] glipiZIDE XL [Glucotrol XL] 5 mg PO DAILY 12/04/17 03/28/19 Apixaban [Eliquis] 5 mg PO BID 04/09/18 03/28/19 amLODIPine [Norvasc] 5 mg PO DAILY 04/09/18 03/28/19 sitaGLIPtin [Januvia] 100 mg PO DAILY 04/09/18 03/28/19 Aspirin EC [Ecotrin Low Dose] 81 mg PO DAILY 03/28/19 03/28/19 Biotin 10,000 mcg PO BID 03/28/19 03/28/19 Buprenorphine HCl [Belbuca] 75 mcg BC Q12H PRN 03/28/19 03/28/19 Furosemide [Lasix] 40 mg PO DAILY 03/28/19 03/28/19 HYDROcodone/APAP 5-325MG [[place] 1 tab PO BID PRN 03/28/19 03/28/19 5-325] Insuln Asp Prt/Insulin Aspart 20 unit SQ DAILY 03/28/19 03/28/19 [NovoLOG MIX 70-30 VIAL] Losartan Potassium [Cozaar] 25 mg PO BID 03/28/19 03/28/19 Montelukast [Singulair] 10 mg PO DAILY 03/28/19 03/28/19 Spironolactone [Aldactone] 25 mg PO BID 03/28/19 03/28/19 Allergies Allergy/AdvReac Type Severity Reaction Status Date / Time tetracycline Allergy Unknown Verified 03/28/19 12:30 fentanyl AdvReac "IN Verified 03/28/19 12:30 ANOTHER PLANET, DIDNT KNOW WHERE SHE WAS" morphine AdvReac Nausea & Verified 03/28/19 12:30 Vomiting Review of Systems ROS Statement: Those systems with pertinent positive or pertinent negative responses have been documented in the HPI. ROS Other: All systems not noted in ROS Statement are negative. Constitutional: Denies: fever Eyes: Denies: eye pain ENT: Denies: ear pain Respiratory: Reports: as per HPI, cough, dyspnea Cardiovascular: Denies: chest pain Endocrine: Denies: fatigue Gastrointestinal: Denies: abdominal pain Genitourinary: Denies: dysuria Musculoskeletal: Denies: back pain Skin: Denies: rash Neurological: Denies: weakness Past Medical History Past Medical History: Atrial Fibrillation, Chest Pain / Angina, Heart Failure, Diabetes Mellitus, Hyperlipidemia, Hypertension, Osteoarthritis (OA), Pneumonia Additional Past Medical History / Comment(s): Paroxysmal Afib, POST OP INFECTION AFTER BACK SURGERY, CHRONIC BACK PAIN FROM T8 FX, difficulty walking d/t back pain, CHRONIC PERIPHERAL LEG EDEMA, UTIs, R humerus fracture. History of Any Multi-Drug Resistant Organisms: None Reported Past Surgical History: Back Surgery, Cholecystectomy, Orthopedic Surgery Additional Past Surgical History / Comment(s): 2015 LUMBAR SURGERY, FX NOSE REPAIR, BILATERAL CATARACT SURGERY, R WRIST CARPAL TUNNEL SURGERY, kyphoplasty T8 ON 06/26/16 AND ONE BEFORE. Past Anesthesia/Blood Transfusion Reactions: No Reported Reaction Additional Past Anesthesia/Blood Transfusion Reaction / Comment(s): NEVER HAD A BLOOD TRANSFUSION. Past Psychological History: No Psychological Hx Reported Smoking Status: Never smoker Past Alcohol Use History: None Reported Past Drug Use History: None Reported - Past Family History Father Family Medical History: Myocardial Infarction ([place]) Additional Family Medical History / Comment(s): FATHER AT AGE 52 OF AN [place] Mother Additional Family Medical History / Comment(s): MOTHER AT AGE 89 OF CELEBREX PROBLEM. General Exam Limitations: no limitations General appearance: alert Head exam: Present: atraumatic Eye exam: Present: normal appearance, PERRL ENT exam: Present: normal oropharynx Neck exam: Present: normal inspection Respiratory exam: Present: respiratory distress, rhonchi Cardiovascular Exam: Present: bradycardia GI/Abdominal exam: Present: soft. Absent: tenderness Extremities exam: Present: pedal edema (Trace bilateral). Absent: calf tenderness Back exam: Present: normal inspection Neurological exam: Present: alert Psychiatric exam: Present: normal affect, normal mood Skin exam: Present: normal color Course Vital Signs 03/28/19 03/28/19 03/28/19 12:10 12:40 12:41 Temperature 97.5 F L Pulse Rate 43 L 44 L 43 L Respiratory 18 18 Rate Blood Pressure 129/53 101/69 O2 Sat by Pulse 97 98 Oximetry 03/28/19 12:48 Temperature Pulse Rate 42 L Respiratory Rate Blood Pressure O2 Sat by Pulse Oximetry EKG Findings - EKG Comments: EKG Findings:: Sinus bradycardia at 46. Sinus arrhythmia. IN 184. QRS 76. QT 450. QTC 393. Normal axis. Normal QRS. No acute ST change. Medical Decision Making - Medical Decision Making Patient reevaluated and resting comfortably in bed. Patient feels better with oxygen. Heart rate remains 42 on monitor. Case was discussed in detail with Dr. maldonado, covering for Dr. Holt, who will admit. - Lab Data Result diagrams: 03/28/19 12:30 03/28/19 12:30 Lab Results 03/28/19 03/28/19 03/28/19 Range/Units 12:30 12:30 12:30 WBC 10.0 (3.8-10.6) k/uL RBC 4.15 (3.80-5.40) m/uL Hgb 13.0 (11.4-16.0) gm/dL Hct 39.5 (34.0-46.0) % MCV 95.4 D (80.0-100.0) fL MCH 31.3 (25.0-35.0) pg MCHC 32.8 (31.0-37.0) g/dL RDW 14.2 (11.5-15.5) % Plt Count 235 (150-450) k/uL Neutrophils % 78 % Lymphocytes % 11 % Monocytes % 5 % Eosinophils % 3 % Basophils % 1 % Neutrophils # 7.8 H (1.3-7.7) k/uL Lymphocytes # 1.1 (1.0-4.8) k/uL Monocytes # 0.5 (0-1.0) k/uL Eosinophils # 0.3 (0-0.7) k/uL Basophils # 0.1 (0-0.2) k/uL PT (9.0-12.0) sec INR (<1.2) APTT (22.0-30.0) sec Sodium 138 (137-145) mmol/L Potassium 5.6 H (3.5-5.1) mmol/L Chloride 108 H (98-107) mmol/L Carbon Dioxide 19 L (22-30) mmol/L Anion Gap 11 mmol/L BUN 53 H (7-17) mg/dL Creatinine 1.41 H (0.52-1.04) mg/dL Est GFR (CKD-EPI)AfAm 42 (>60 ml/min/1.73 sqM) Est GFR (CKD-EPI)NonAf 36 (>60 ml/min/1.73 sqM) Glucose 172 H (74-99) mg/dL Calcium 10.3 H (8.4-10.2) mg/dL Magnesium 2.2 (1.6-2.3) mg/dL Total Bilirubin 1.2 (0.2-1.3) mg/dL AST 49 H (14-36) U/L ALT 19 (9-52) U/L Alkaline Phosphatase 87 (38-126) U/L Troponin I (0.000-0.034) ng/mL NT-Pro-B Natriuret Pep 326 pg/mL Total Protein 7.7 (6.3-8.2) g/dL Albumin 4.4 (3.5-5.0) g/dL TSH 0.171 L (0.465-4.680) mIU/L Free T4 1.08 (0.78-2.19) ng/dL Free T3 pg/mL 2.7 L (2.8-5.3) pg/ml 03/28/19 03/28/19 Range/Units 12:30 12:30 WBC (3.8-10.6) k/uL RBC (3.80-5.40) m/uL Hgb (11.4-16.0) gm/dL Hct (34.0-46.0) % MCV (80.0-100.0) fL MCH (25.0-35.0) pg MCHC (31.0-37.0) g/dL RDW (11.5-15.5) % Plt Count (150-450) k/uL Neutrophils % % Lymphocytes % % Monocytes % % Eosinophils % % Basophils % % Neutrophils # (1.3-7.7) k/uL Lymphocytes # (1.0-4.8) k/uL Monocytes # (0-1.0) k/uL Eosinophils # (0-0.7) k/uL Basophils # (0-0.2) k/uL PT 10.6 (9.0-12.0) sec INR 1.0 (<1.2) APTT 24.5 (22.0-30.0) sec Sodium (137-145) mmol/L Potassium (3.5-5.1) mmol/L Chloride (98-107) mmol/L Carbon Dioxide (22-30) mmol/L Anion Gap mmol/L BUN (7-17) mg/dL Creatinine (0.52-1.04) mg/dL Est GFR (CKD-EPI)AfAm (>60 ml/min/1.73 sqM) Est GFR (CKD-EPI)NonAf (>60 ml/min/1.73 sqM) Glucose (74-99) mg/dL Calcium (8.4-10.2) mg/dL Magnesium (1.6-2.3) mg/dL Total Bilirubin (0.2-1.3) mg/dL AST (14-36) U/L ALT (9-52) U/L Alkaline Phosphatase (38-126) U/L Troponin I <0.012 (0.000-0.034) ng/mL NT-Pro-B Natriuret Pep pg/mL Total Protein (6.3-8.2) g/dL Albumin (3.5-5.0) g/dL TSH (0.465-4.680) mIU/L Free T4 (0.78-2.19) ng/dL Free T3 pg/mL (2.8-5.3) pg/ml - Radiology Data Interpreted by me: Chest x-ray shows postsurgical changes. No acute abnormality. Disposition Clinical Impression: Bradycardia, Dyspnea Disposition: ADMITTED IP TO THIS HOSP Is patient prescribed a controlled substance at d/c from ED?: No Referrals: Rox Holt DO [Primary Care Provider] - 1-2 days Decision Time: 14:16
[2019-03-28 12:43] LABS: Basophils # (A) 0.1 k/uL (0-0.2); Basophils % (A) 1 %; Eosinophils # (A) 0.3 k/uL (0-0.7); Eosinophils % (A) 3 %; HCT 39.5 % (34.0-46.0); Lymphocytes # (A) 1.1 k/uL (1.0-4.8); Lymphocytes % (A) 11 %; MCH 31.3 pg (25.0-35.0); MCHC 32.8 g/dL (31.0-37.0); Mean Platelet Volume 8.7; Monocytes # (A) 0.5 k/uL (0-1.0); Monocytes % (A) 5 %; Neutrophils # (A) 7.8 k/uL (1.3-7.7); Neutrophils % (A) 78 %; Platelet Count 235 k/uL (150-450); RBC 4.15 m/uL (3.80-5.40); RDW 14.2 % (11.5-15.5)
[2019-03-28 12:46] LABS: MCV 95.4 fL (80.0-100.0)
[2019-03-28 12:53] LABS: Albumin 4.4 g/dL (3.5-5.0); Calcium 10.3 mg/dL (8.4-10.2); Total Bilirubin 1.2 mg/dL (0.2-1.3); Total Protein 7.7 g/dL (6.3-8.2)
[2019-03-28 12:55] LABS: Partial Thromboplastin Time 24.5 sec (22.0-30.0); Prothrombin Time 10.6 sec (9.0-12.0)
[2019-03-28 13:10] LABS: Magnesium 2.2 mg/dL (1.6-2.3); Potassium 5.6 mmol/L (3.5-5.1); T4, Free (Free Thyroxine) 1.08 ng/dL (0.78-2.19)
[2019-03-28] MEDS ORDERED: NALOXONE 0.4 MG/ML 1 ML VIAL IV PRN (14:16)
--- NOTE | 2019-03-28 14:32 | XR ---
EXAMINATION TYPE: XR chest 2V DATE OF EXAM: 03/28/2019 COMPARISON: NONE HISTORY: Difficulty in breathing TECHNIQUE: Frontal and lateral views of the chest are obtained. FINDINGS: There is no focal air space opacity, pleural effusion, or pneumothorax seen. Redemonstrate d chronic interstitial change. The cardiac silhouette size is within normal limits. Vertebral body c ement in several midthoracic vertebral bodies. Exaggerated thoracic kyphosis. Chronic fracture deform ity of the right proximal humerus. IMPRESSION: No acute cardiopulmonary process.
[2019-03-28] MEDS: SODIUM CHLORIDE 0.9% 1,000 ML IV SCH (14:52)
[2019-03-28] MEDS ORDERED: HYDROcodone/APAP 5-325MG 1 EACH TAB PO PRN ×2 (16:00→23:24)
[2019-03-28] MEDS ORDERED: BUPRENORPHINE HCL 75 MCG BC PRN (16:00)
[2019-03-28 16:48] VITALS: BMI 49.6
[2019-03-28] MEDS: FUROSEMIDE 10 MG/ML 4 ML VIAL IV SCH (16:57)
[2019-03-28 17:14] LABS: Glucose,Whole Blood 184 mg/dL (75-99)
[2019-03-28] MEDS: INSULIN ASPART (NovoLOG) 100 UNIT/ML VIAL SQ SCH ×2 (17:15→21:30)
[2019-03-28] MEDS: APIXABAN 5 MG TAB PO SCH (19:50)
[2019-03-28 20:27] LABS: Glucose,Whole Blood 167 mg/dL (75-99)
[2019-03-28] MEDS ORDERED: NON-FORMULARY DRUG (Biotin [Biotin] 10,000 MCG) PO SCH (21:00)
--- NOTE | 2019-03-28 23:05 | HP ---
HISTORY AND PHYSICAL DATE OF SERVICE: 03/28/2019 CHIEF COMPLAINT: Shortness of breath. HISTORY OF PRESENT ILLNESS: This 78-year-old woman with a past history atrial fibrillation, history of CHF, history of diabetes, history of hypertension, history of DJD, history pneumonia, paroxysmal atrial fibrillation, history of back surgery, cholecystectomy being followed by ( ) and Dr. Parmar in the outpatient setting, is complaining of shortness of breath. The patient had difficulty breathing when especially lying down, mostly started in the morning and the patient not feeling palpitation. Patient came to [facility] and found to have bradycardia to 40-50, and the patient admitted for evaluation and treatment. The patient also taking metoprolol. There is no history of fever or rigors. No headache, loss of consciousness or seizures. PAST MEDICAL HISTORY: Atrial fibrillation, chest pain, CHF, diabetes, hypertension, history of DJD, history of back surgery, cholecystectomy. HOME MEDICATIONS: 1. Hydrocodone 5 mg b.i.d. p.r.n. 2. Buprenorphine 75 mcg b.i.d. p.r.n. 3. Biotin 14272 subcu b.i.d. 4. NovoLog 20 units subcu daily. 5. Ecotrin 81 mg p.o. daily. 6. Eliquis 5 mg p.o. b.i.d. 7. Januvia 100 mg p.o. daily. 8. Glucotrol XL 5 mg p.o. daily. 9. Zocor 40 mg p.o. daily. 10.Singulair 10 mg p.o. daily. 11.Norvasc 5 mg p.o. daily. 12.Oxybutynin 10 mg p.o. daily. 13.Lopressor 50 mg p.o. b.i.d. 14.Cozaar 25 mg p.o. b.i.d. 15.Lasix 40 mg p.o. daily. 16.Aldactone 25 mg p.o. b.i.d. ALLERGIES: TETRACYCLINE, FENTANYL, AND MORPHINE. FAMILY HISTORY: History of myocardial infarction in the family. SOCIAL HISTORY: No history of smoking. No alcohol intake. REVIEW OF SYSTEMS: ENT No history of diminished hearing or vision. CARDIOVASCULAR As mentioned earlier. RESPIRATORY As mentioned earlier. GI No nausea, vomiting, or diarrhea. No dysuria. NERVOUS No numbness or weakness. ALLERGY/IMMUNOLOGY No asthma or hayfever. MUSCULOSKELETAL As mentioned earlier. HEMATOLOGY/ONCOLOGY Negative. ENDOCRINE Diabetes mellitus. CONSTITUTIONAL As mentioned earlier. DERMATOLOGY Negative. PSYCHIATRY As mentioned earlier. PHYSICAL EXAM: Pulse 43, regular. Blood pressure 101/69, respiration 18, temperature 98.2, pulse ox 98% on 2 L. HEENT: Conjunctivae normal. Oral mucosa moist. NECK: No jugular venous distention. No lymph node enlargement. CARDIOVASCULAR: S1, S2. Bradycardiac. No S3, S4. RESPIRATORY: Diminished breath sounds at the bases. No rhonchi, no crackles. ABDOMEN: Soft, obese. Possible abdominal wall hernia in the right upper quadrant present. No mass palpable. LEGS: No edema, no swelling. NERVOUS SYSTEM: Higher functions mentioned earlier. Moves all four limbs. No focal deficits. LYMPHATICS: No lymph node in the neck or axilla. JOINTS: No active deforming arthropathy. LAB STUDIES: CBC within normal limits. Sodium 130, potassium 5.6, creatinine is 1.41, calcium is 10.3, AST is 49. TSH is 0.17. ASSESSMENT: 1. Shortness of breath, possible congestive heart failure acute exacerbation with acute on chronic diastolic dysfunction 50-60 percent. 2. Sinus bradycardia. 3. Paroxysmal atrial fibrillation. 4. Hyperkalemia. 5. Renal failure possible acute on chronic with acute tubular necrosis prerenal renal failure. 6. Chronic kidney stage 3 baseline. 7. Mild hypercalcemia. 8. Sick euthyroid syndrome with decreased TSH and free T3 and normal free T4. 9. History of diabetes type 2. 10.Hypertension. 11.Hyperlipidemia. 12.History of degenerative joint disease. 13.History of pneumonia. 14.History of back surgery. 15.History of cholecystectomy. 16.Obesity with body mass index of 49.6. RECOMMENDATIONS AND DISCUSSION: This 78-year-old woman who presented with multiple complex medical issues, we will monitor the patient closely, continue the current management and symptomatic treatment. We will initiate a small dose of IV Lasix, monitor closely. Otherwise, repeat labs, hold antihypertensive medications and Aldactone and potassium supplementation. Cardiology consultation. Prognosis guarded because of multiple complex medical issues. Further recommendations to follow. MMODL / IJN: [id number] /
[2019-03-29 06:24] LABS: Basophils % (A) 1 %; Eosinophils # (A) 0.2 k/uL (0-0.7); Eosinophils % (A) 3 %; HCT 37.4 % (34.0-46.0); HGB 12.4 gm/dL (11.4-16.0); Lymphocytes # (A) 1.2 k/uL (1.0-4.8); Lymphocytes % (A) 17 %; MCH 31.9 pg (25.0-35.0); MCHC 33.1 g/dL (31.0-37.0); MCV 96.3 fL (80.0-100.0); Mean Platelet Volume 7.8; Monocytes # (A) 0.4 k/uL (0-1.0); Monocytes % (A) 5 %; Neutrophils % (A) 72 %; Platelet Count 215 k/uL (150-450); RBC 3.88 m/uL (3.80-5.40); RDW 13.6 % (11.5-15.5)
[2019-03-29 06:34] LABS: Glucose,Whole Blood 171 mg/dL (75-99)
[2019-03-29 06:40] LABS: Calcium 9.9 mg/dL (8.4-10.2); Magnesium 2.1 mg/dL (1.6-2.3); Potassium 5.2 mmol/L (3.5-5.1)
[2019-03-29] MEDS: INSULIN ASPART (NovoLOG) 100 UNIT/ML VIAL SQ SCH ×4 (06:58→19:45)
[2019-03-29] MEDS: FUROSEMIDE 10 MG/ML 4 ML VIAL IV SCH (09:03)
[2019-03-29] MEDS: INSULN ASP PRT/INSULIN ASPART 100 UNIT/ML 10 ML VIAL SQ SCH (09:03)
[2019-03-29] MEDS: LINAGLIPTIN 5 MG TABLET PO SCH (09:03)
[2019-03-29] MEDS: ATORVASTATIN 20 MG TAB PO SCH (09:03)
[2019-03-29] MEDS: OXYBUTYNIN 10 MG TAB.ER.24 PO SCH (09:03)
[2019-03-29] MEDS: MONTELUKAST 10 MG TAB PO SCH (09:03)
[2019-03-29] MEDS: ASPIRIN 81 MG PO SCH (09:04)
[2019-03-29] MEDS: APIXABAN 5 MG TAB PO SCH ×2 (09:04→19:45)
[2019-03-29 11:37] LABS: Glucose,Whole Blood 137 mg/dL (75-99)
[2019-03-29] MEDS: HYDROmorphone 0.5 MG/0.5 ML SYRINGE IVP PRN ×2 (12:11→17:14)
--- NOTE | 2019-03-29 12:38 | CONS ---
CONSULTATION CHIEF COMPLAINT: Shortness of breath, fatigue and tiredness. Hortencia is a 78-year-old lady with history of paroxysmal atrial fibrillation, hypertension, diabetes, dyslipidemia, who recently had a steroid injection and was told at that time that her heart rate was slow and subsequently has been feeling exertional fatigue and tiredness. Due to this, she came to the hospital where she was found to have sinus bradycardia with heart rates in the 40s and 50s and is admitted to hospital for the same. At the time of my evaluation this morning, she appears comfortable at rest. Does not have significant pauses. The sinus bradycardia that she has has remained stable. The patient was on beta ale on her initial presentation at Lopressor 50 b.i.d. This is currently on hold. Her labs also showed that her potassium was elevated at 5.6 with renal insufficiency, probably related to the Aldactone that she is on. We will stop her Aldactone and the beta ale. The patient had an echo more than a year ago that showed normal LV function. We can ambulate the patient, see how she does and if she is feeling fine, can be discharged home. I do not believe patient is in congestive heart failure at the moment. Her chest x-ray does not reveal any congestion. She does not have leg edema. Does not have JVD and her BNP is not elevated at 326. Her bradycardia could be causing the fatigue and tiredness as could the renal insufficiency. The patient's baseline creatinine was 0.9 and had gradually gone up to 1.5. I will be surprised if this is related to the Aldactone. PAST MEDICAL HISTORY: Significant for chronic diastolic heart failure, hypertension, diabetes, dyslipidemia, and paroxysmal atrial fibrillation. The patient is currently on biotin, insulin, aspirin, Eliquis 5 b.i.d., Januvia, Glucotrol XL, Zocor, Singulair, Norvasc, Lopressor, Cozaar, Lasix and Aldactone. ALLERGIES: To MORPHINE, FENTANYL, and TETRACYCLINE. FAMILY HISTORY: Negative for premature coronary artery disease. SOCIAL HISTORY: Negative for current smoking, EtOH abuse, or drug abuse. REVIEW OF SYSTEMS: HEENT is unremarkable. CARDIAC: As described above. RESPIRATORY: As described above. GI: Negative. GENITOURINARY: As described above. PSYCHOSOCIAL: Negative. ENDOCRINE: Negative. HEMATOLOGICAL: Negative. CONSTITUTIONAL: Negative. ONCOLOGICAL: Negative. Rest of the system review is not relevant. EXAM: Afebrile. Heart rate is 65 beats per minute. Blood pressure is 110/50, respirations 18, O2 sat is 96% on 2 L. There is no jugular venous distention. Chest exam reveals good air entry bilaterally. Heart exam reveals first and second heart sounds. No gallop. Has an ejection systolic murmur in the aortic area. Abdomen is soft. Exam of extremities did not reveal any edema. Peripheral pulses are felt. LAB: Show a hemoglobin of 12.5. Potassium is 5.2, BUN is 52, creatinine is 1.5. ASSESSMENT: 1. Sinus bradycardia, probably related to the beta blockers that the patient is on. 2. Paroxysmal atrial fibrillation. 3. Chronic diastolic heart failure, well compensated. 4. Hypertension. 5. Diabetes. 6. Dyslipidemia. 7. Renal insufficiency. 8. Hyperkalemia. PLAN: Stop the metoprolol. Stop the Aldactone. Ambulate the patient. Obtain a 2D echo today. MMODL / IJN: [id number] /
--- NOTE | 2019-03-29 13:03 | ECHOF ---
Referral Reason:sob MEASUREMENTS -------- HEIGHT: 157.5 cm WEIGHT: 116.6 kg BP: 140/67 RVIDd: 3.3 cm (< 3.3) IVSd: 1.2 cm (0.6 - 1.1) LVIDd: 3.8 cm (3.9 - 5.3) LVPWd: 1.0 cm (0.6 - 1.1) IVSs: 1.5 cm LVIDs: 3.7 cm LVPWs: 1.1 cm LA Diam: 4.9 cm (2.7 - 3.8) LAESV Index (A-L): 38.28 ml/m Ao Diam: 3.0 cm (2.0 - 3.7) AV Cusp: 2.0 cm (1.5 - 2.6) LA Diam: 5.2 cm (2.7 - 3.8) MV EXCURSION: 18.438 mm (> 18.000) MV EF SLOPE: 55 mm/s (70 - 150) EPSS: 0.4 cm MV E Wolf: 0.99 m/s MV DecT: 251 ms MV A Wolf: 0.89 m/s MV E/A Ratio: 1.12 RAP: 5.00 mmHg RVSP: 32.64 mmHg FINDINGS -------- Undetermined rhythm. This was a technically adequate study. The left ventricular size is normal. There is mild concentric left ventricular hypertrophy. Overa ll left ventricular systolic function is normal with, an EF between 55 - 60 %. The right ventricle is normal in size. The left atrium is moderately dilated. LA is moderately dilated 34-39 ml/m2 The right atrial size is normal. There is mild aortic valve sclerosis. There is no evidence of aortic regurgitation. Mild mitral annular calcification present. Mild mitral regurgitation is present. Mild tricuspid regurgitation present. There is no evidence of pulmonary hypertension. The right v entricular systolic pressure, as measured by Doppler, is 32.64mmHg. There is no pulmonic regurgitation present. The aortic root size is normal. There is no pericardial effusion. CONCLUSIONS -------- 1. Undetermined rhythm. 2. This was a technically adequate study. 3. The left ventricular size is normal. 4. There is mild concentric left ventricular hypertrophy. 5. Overall left ventricular systolic function is normal with, an EF between 55 - 60 %. 6. The right ventricle is normal in size. 7. The left atrium is moderately dilated. 8. LA is moderately dilated 34-39 ml/m2 9. The right atrial size is normal. 10. There is mild aortic valve sclerosis. 11. Mild mitral annular calcification present. 12. Mild mitral regurgitation is present. 13. Mild tricuspid regurgitation present. 14. There is no evidence of pulmonary hypertension. 15. The right ventricular systolic pressure, as measured by Doppler, is 32.64mmHg. 16. There is no pulmonic regurgitation present. 17. The aortic root size is normal. 18. There is no pericardial effusion. FOOD PRODUCTION ASSOCIATE: Sheri Abreu RDCS
[2019-03-29 16:44] LABS: Glucose,Whole Blood 269 mg/dL (75-99)
[2019-03-29] MEDS: SODIUM CHLORIDE 0.9% 1,000 ML IV SCH (17:09)
--- NOTE | 2019-03-29 18:41 | PN ---
PROGRESS NOTE DATE OF SERVICE: 03/29/2019 This 78-year-old woman who was admitted with shortness of breath, possibly had CHF acute exacerbation. Patient also had sinus bradycardia. A 2D echo with Doppler was done by Cardiology which showed ejection fraction about 55-60 percent. Patient closely monitored at this time. The patient is on beta blockers which have been stopped at this time. Patient is complaining of severe back pain and receiving IV pain medications. PAST MEDICAL HISTORY: Reviewed. REVIEW OF SYSTEMS: CARDIOVASCULAR: As mentioned earlier. RESPIRATORY: As mentioned earlier. GI: No nausea. : No dysuria. NERVOUS SYSTEM: No numbness or weakness. CURRENT MEDICATIONS: 1. [place] 5 mg q.6h p.r.n. 2. Eliquis 5 mg p.o. b.i.d. 3. Aspirin 81 mg. 4. Lipitor 200 mg. 5. Lasix 40 mg IV daily. 6. Glucotrol 2.5 mg b.i.d. 7. Dilaudid p.r.n. 8. NovoLog 70/30, 20 units daily. 9. Tradjenta 5 mg p.r.n. 10.Singulair 10 mg. 11.Narcan. 12.Ditropan XL. PHYSICAL EXAMINATION: Alert and oriented x3. Pulse 49, blood pressure 128/56, respiration 18, temperature 97.2, pulse ox 98% on 2 L HEENT: Conjunctivae normal. Oral mucosa moist. NECK: No jugular venous distention. No lymph node enlargement. CARDIOVASCULAR: S1, S2. RESPIRATORY: Diminished breath sounds at the bases. A few scattered rhonchi, no crackles. ABDOMEN: Soft, nontender. LEGS: No swelling. NERVOUS SYSTEM: No focal deficits. LAB STUDIES: CBC within normal limits. Creatinine is 1.57, BUN is 52, and glucose 137. Other labs are noted. ASSESSMENT: 1. Shortness of breath, possible congestive heart failure acute exacerbation acute on chronic diastolic dysfunction, ejection fraction 55-60 percent. 2. Sinus bradycardia, possibly medication induced. 3. Paroxysmal atrial fibrillation. 4. Hyperkalemia. 5. Renal failure possibly secondary to acute on chronic with acute tubular necrosis prerenal acute renal failure. 6. Chronic kidney stage 3 baseline. 7. Mild hypercalcemia. 8. Sick euthyroid syndrome with decreased TSH and free T3 and normal free T4. 9. History of diabetes type 2. 10.Hypertension. 11.Hyperlipidemia. 12.History of degenerative joint disease. 13.History of pneumonia. 14.History of back surgery. 15.History of cholecystectomy. 16.Obesity with body mass index of 49.6. RECOMMENDATIONS AND DISCUSSION: I recommend to continue current medications, continue to monitor, continue symptomatic treatment. Otherwise, at this time I recommend continue with cautious diuresis, monitor creatinine closely. Otherwise, closely follow with Cardiology. Guarded prognosis because of multiple complex medical issues. Further recommendations to follow. MMODL / IJN: [id number] /
[2019-03-29 19:54] LABS: Glucose,Whole Blood 242 mg/dL (75-99)
[2019-03-30] MEDS: HYDROmorphone 0.5 MG/0.5 ML SYRINGE IVP PRN ×3 (03:55→11:13)
[2019-03-30 05:57] LABS: Basophils % (A) 1 %; Eosinophils # (A) 0.2 k/uL (0-0.7); Eosinophils % (A) 3 %; HCT 37.2 % (34.0-46.0); HGB 12.2 gm/dL (11.4-16.0); Lymphocytes % (A) 15 %; MCH 31.4 pg (25.0-35.0); MCHC 32.7 g/dL (31.0-37.0); Mean Platelet Volume 7.8; Monocytes # (A) 0.4 k/uL (0-1.0); Monocytes % (A) 6 %; Neutrophils # (A) 4.7 k/uL (1.3-7.7); Neutrophils % (A) 73 %; Platelet Count 214 k/uL (150-450); RBC 3.88 m/uL (3.80-5.40); WBC 6.5 k/uL (3.8-10.6)
[2019-03-30 06:07] LABS: Calcium 9.6 mg/dL (8.4-10.2); Potassium 4.6 mmol/L (3.5-5.1)
[2019-03-30 06:23] LABS: Glucose,Whole Blood 163 mg/dL (75-99)
[2019-03-30] MEDS: INSULIN ASPART (NovoLOG) 100 UNIT/ML VIAL SQ SCH ×2 (06:35→12:04)
[2019-03-30] MEDS: FUROSEMIDE 10 MG/ML 4 ML VIAL IV SCH (07:25)
[2019-03-30 07:28] VITALS: RESP 18
[2019-03-30] MEDS: ASPIRIN 81 MG PO SCH (08:48)
[2019-03-30] MEDS: MONTELUKAST 10 MG TAB PO SCH (08:48)
[2019-03-30] MEDS: ATORVASTATIN 20 MG TAB PO SCH (08:48)
[2019-03-30] MEDS: APIXABAN 5 MG TAB PO SCH (08:48)
[2019-03-30] MEDS: OXYBUTYNIN 10 MG TAB.ER.24 PO SCH (08:48)
[2019-03-30] MEDS: INSULN ASP PRT/INSULIN ASPART 100 UNIT/ML 10 ML VIAL SQ SCH (08:48)
[2019-03-30] MEDS: LINAGLIPTIN 5 MG TABLET PO SCH (08:52)
[2019-03-30 11:16] VITALS: BP 123/63; PULSE 78; TEMP 98
[2019-03-30 11:51] LABS: Glucose,Whole Blood 132 mg/dL (75-99)
--- NOTE | 2019-03-30 13:18 | P.DS ---
Providers Date of admission: 03/28/19 14:16 Expected date of discharge: 03/30/19 Attending physician: Scotty Romero MD Consults: 03/28/19 14:16 Consult Physician Urgent Consulting Provider: Mitch Cuevas Consult Reason/Comments: Bradycardia and dyspnea Do you want consulting provider notified?: Yes Primary care physician: Rox Holt [facility] Course: Final diagnosis Shortness of breath, possible congestive heart failure acute exacerbation acute on chronic diastolic dysfunction, ejection fraction 55-60% Sinus bradycardia, possibly medication induced Paroxysmal atrial fibrillation Hyperkalemia Renal failure possibly secondary to acute on chronic with acute tubular necrosis prerenal acute renal failure Chronic kidney stage III baseline Mild hypercalcemia Sick euthyroid syndrome with decreased TSH and free T3 and a normal free T4 History of diabetes mellitus type 2 Hypertension Hyperlipidemia History of degenerative joint disease History of pneumonia History of back surgery History of cholecystectomy Obesity with body mass index of 49.6 Discharge disposition: This patient is being discharged in a stable condition with guarded prognosis to home and follow-up with primary care provider this week. Patient will follow-up with cardiology within 1-2 weeks. History of present illness This is a 78-year-old female who was admitted with shortness of breath, possibly at CHF acute exacerbation as well as sinus bradycardia and was being closely monitored. Patient underwent a 2-D echo which showed an ejection fraction of about 55-60%. Per cardiology recommendations patient will hold beta ale of metoprolol as well as discontinuing Aldactone and will follow-up in the outpatient setting. Patient continues to have chronic back pain and will follow-up with her primary care provider Dr. Holt in the outpatient setting. During this hospital course patient's creatinine was elevated but is improving. Creatinine is currently 1.37 down from 1.57 yesterday. Patient will need repeat BMP in 2-3 days. Patient denies any chest pain, shortness of breath, or palpitations at this time. Patient denies any nausea or vomiting and has been tolerating diet. Currently patient's condition is stable with much improvement. On exam vital signs are stable. Blood pressure is 123/63, pulse is 78, respirations are 18, temp is 98F, oxygen saturation is 99% on room air. Cardio S1 and S2 are muffled. Respiratory system shows Breath sounds diminished at the bases with no crackles noted. Abdomen is soft, obese, non-tender. Nervous system shows no focal deficits with mild diffuse weakness getting up otherwise gait is steady. Please refer to medication reconciliation sheet for a list of medications. Patient Condition at Discharge: Fair Plan - Discharge Summary New Discharge Prescriptions: Continue Simvastatin [Zocor] 40 mg PO DAILY glipiZIDE XL [Glucotrol XL] 5 mg PO DAILY Oxybutynin Chloride [Oxybutynin Chloride ER] 10 mg PO DAILY amLODIPine [Norvasc] 5 mg PO DAILY sitaGLIPtin [Januvia] 100 mg PO DAILY Apixaban [Eliquis] 5 mg PO BID HYDROcodone/APAP 5-325MG [Beggs 5-325] 1 tab PO BID PRN PRN Reason: Pain Buprenorphine HCl [Belbuca] 75 mcg BC Q12H PRN PRN Reason: Pain Insuln Asp Prt/Insulin Aspart [NovoLOG MIX 70-30 VIAL] 20 unit SQ DAILY Aspirin EC [Ecotrin Low Dose] 81 mg PO DAILY Montelukast [Singulair] 10 mg PO DAILY Losartan Potassium [Cozaar] 25 mg PO BID Furosemide [Lasix] 40 mg PO DAILY Biotin 10,000 mcg PO BID Discontinued Metoprolol Tartrate [Lopressor] 50 mg PO BID Spironolactone [Aldactone] 25 mg PO BID Discharge Medication List Simvastatin [Zocor] 40 mg PO DAILY 11/01/16 [History] Oxybutynin Chloride [Oxybutynin Chloride ER] 10 mg PO DAILY 12/04/17 [History] glipiZIDE XL [Glucotrol XL] 5 mg PO DAILY 12/04/17 [History] Apixaban [Eliquis] 5 mg PO BID 04/09/18 [History] amLODIPine [Norvasc] 5 mg PO DAILY 04/09/18 [History] sitaGLIPtin [Januvia] 100 mg PO DAILY 04/09/18 [History] Aspirin EC [Ecotrin Low Dose] 81 mg PO DAILY 03/28/19 [History] Biotin 10,000 mcg PO BID 03/28/19 [History] Buprenorphine HCl [Belbuca] 75 mcg BC Q12H PRN 03/28/19 [History] Furosemide [Lasix] 40 mg PO DAILY 03/28/19 [History] HYDROcodone/APAP 5-325MG [Beggs 5-325] 1 tab PO BID PRN 03/28/19 [History] Insuln Asp Prt/Insulin Aspart [NovoLOG MIX 70-30 VIAL] 20 unit SQ DAILY 03/28/19 [History] Losartan Potassium [Cozaar] 25 mg PO BID 03/28/19 [History] Montelukast [Singulair] 10 mg PO DAILY 03/28/19 [History] Follow up Appointment(s)/Referral(s): Mitch Cuevas MD [STAFF PHYSICIAN] - 04/06/19 10:15 am Rox Holt DO [Primary Care Provider] - 04/02/19 10:00 am (With Asia NINO) Patient Instructions/Handouts: Bradycardia (DC), Dyspnea (DC) Activity/Diet/Wound Care/Special Instructions: activity limited until follow up continue current diet follow up with primary care provider this week follow up with cardiology Discharge Disposition: HOME SELF-CARE
--- NOTE | 2019-03-30 14:13 | P.PN ---
Subjective Progress Note Date: 03/30/19 This is a pleasant 78-year-old female with history of paroxysmal atrial fibrillation, hypertension, diabetes, hyperlipidemia, who recently had a steroid injection and was told at that time that her heart rate was slow. Since then she's been feeling exertionally fatigued and tired, she presented to the hospital and was found to have a heart rate in the 40s to 50s. She was seen in consultation by Dr. Roger, patient was on a beta ale which had been discontinued. She was seen and examined today, feels well, echo showed normal ejection fraction. Her blood pressure this morning 136/70 with a heart rate in the 70s. Objective - Vital Signs Vital signs: Vital Signs Temp 98 F 03/30/19 11:15 Pulse 78 03/30/19 12:28 Resp 18 03/30/19 11:15 BP 123/63 03/30/19 11:15 Pulse Ox 99 03/30/19 11:15 Intake & Output 03/29/19 03/30/19 03/30/19 18:59 06:59 18:59 Intake Total 1600 160 Balance 1600 160 Weight 116.9 kg Intake: Intake, IV Titration 160 160 Amount Sodium Chloride 0.9% 1, 160 160 000 ml @ 20 mls/hr IV . Q24H YOSSI Rx#:[id number] Oral 1440 Other: Voiding Method Toilet # Voids 1 1 - Exam PHYSICAL EXAMINATION: GENERAL: 78 stroke female in no acute distress at the time of my e xamination HEENT: Head is atraumatic, normocephalic. Pupils equal, round. Sclera anicteric. Conjunctiva are clear. Mucous membranes of the mouth are moist. Neck is supple. There is no elevated jugular venous pressure. No carotid bruit is heard. HEART EXAMINATION: S1 and S2 with systolic ejection murmur is heard CHEST EXAMINATION: Lungs are clear to auscultation and precussion. No chest wall tenderness is noted on palpation or with deep breathing. ABDOMEN: Soft, nontender. Bowel sounds are heard. No organomegaly noted. EXTREMITIES: 2+ peripheral pulses with no evidence of peripheral edema and no calf tenderness noted. NEUROLOGIC patient is awake, alert and oriented 3 . . - Labs CBC & Chem 7: 03/30/19 05:29 03/30/19 05:29 Labs: Abnormal Lab Results - Last 24 Hours (Table) 03/29/19 03/29/19 03/30/19 Range/Units 16:42 19:42 05:29 BUN 48 H (7-17) mg/dL Creatinine 1.37 H (0.52-1.04) mg/dL Glucose 156 H (74-99) mg/dL POC Glucose (mg/dL) 269 H 242 H (75-99) mg/dL 03/30/19 03/30/19 Range/Units 06:08 11:47 BUN (7-17) mg/dL Creatinine (0.52-1.04) mg/dL Glucose (74-99) mg/dL POC Glucose (mg/dL) 163 H 132 H (75-99) mg/dL Assessment and Plan Plan: Assessment and plan #1 sinus bradycardia, likely secondary to beta blockers. Heart rate today remains in the 70s #2 paroxysmal atrial fibrillation #3 chronic diastolic heart failure, well compensated #4 hypertension #5 diabetes #6 hyperlipidemia Plan From cardiology's perspective, patient may be able to be discharged home, we'll make her a follow-up appointment in the office post discharge. Continue to hold beta blockers. DNP note has been reviewed, I agree with a documented findings and plan of care. Patient was seen and examined.
== END 2019-03-30 13:20 | disposition home or self-care (01) | DRG 291 ==
LOC: EC 12:08 → 3SCARD 14:16
PROVIDERS: ADMIT Internal Medicine; ATTEND Internal Medicine
DX: I13.0 Hypertensive heart and chronic kidney disease with heart failure and stage 1 through stage 4 chronic kidney disease, or unspecified chronic kidney disease (principal); I50.33 Acute on chronic diastolic (congestive) heart failure; N17.0 Acute kidney failure with tubular necrosis; Z68.42 Body mass index [BMI] 45.0-49.9, adult; N18.3 Chronic kidney disease, stage 3 (moderate); E07.81 Sick-euthyroid syndrome; E11.22 Type 2 diabetes mellitus with diabetic chronic kidney disease; E66.9 Obesity, unspecified; E78.5 Hyperlipidemia, unspecified; E83.52 Hypercalcemia; E87.5 Hyperkalemia; G89.29 Other chronic pain; I48.0 Paroxysmal atrial fibrillation; Z79.01 Long term (current) use of anticoagulants; Z79.4 Long term (current) use of insulin; Z79.82 Long term (current) use of aspirin; Z79.899 Other long term (current) drug therapy; Z82.49 Family history of ischemic heart disease and other diseases of the circulatory system; Z87.01 Personal history of pneumonia (recurrent); Z90.49 Acquired absence of other specified parts of digestive tract; Z88.1 Allergy status to other antibiotic agents; Z88.5 Allergy status to narcotic agent; Z98.42 Cataract extraction status, left eye; Z98.41 Cataract extraction status, right eye; Z79.51 Long term (current) use of inhaled steroids; T44.7X5A Adverse effect of beta-adrenoreceptor antagonists, initial encounter; R00.1 Bradycardia, unspecified
CPT/HCPCS: 36415; 71046; 80048; 80053; 83735; 83880; 84439; 84443; 84481; 84484; 85025; 85379; 85610; 85730; 93005; 93306; 94640; 99285

== ENCOUNTER 2019-04-09 06:51 | Emergency (ER) | payer MEDICARE ==
[2019-04-09 06:59] VITALS: RESP 18
--- NOTE | 2019-04-09 07:29 | ED ---
General Adult HPI - General Chief complaint: Chest Pain Stated complaint: Chest Pain Time Seen by Provider: 04/09/19 07:07 Source: patient Mode of arrival: EMS - History of Present Illness Initial comments: Dictation was produced using [employer] dictation software. please excuse any grammatical, word or spelling errors. Chief Complaint: 78-year-old female multiple comorbidities presents with chest pain since yesterday. History of Present Illness: Patient is a 78-year-old female presents with left- sided chest pain. Since her symptoms began approximately 10 AM yesterday. She decided to come to the emergency department because her pain hasn't improved. She saw her symptoms would go away. She states pain is sharp and located to the left anterior chest radiating to the back. Denies any numbness to paresthesias to the extremities. Patient denies any radiation of symptoms to the extremities. Extremities were the neck. 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 Patient states she struggles with history of severe muscle spasms. The ROS documented in this emergency department record has been reviewed and confirmed by me. Those systems with pertinent positive or negative responses have been documented in the HPI. All other systems are other negative and/or noncontributory. PHYSICAL EXAM: General Impression: Alert and oriented x3, acute distress secondary to pain HEENT: Normocephalic atraumatic, extra-ocular movements intact, pupils equal and reactive to light bilaterally, mucous membranes moist. Cardiovascular: Heart regular rate and rhythm, S1&S2 audible, no murmurs, rubs or gallops Chest: Lungs clear to auscultation bilaterally, no rhonchi, no wheeze, no rales Abdomen: Bowel sounds present, abdomen soft, non-tender, non-distended, no organomegaly Musculoskeletal: Pulses present and equal in all extremities, no peripheral edema Motor: no focal deficits noted Neurological: CN II-XII grossly intact, no focal motor or sensory deficits noted Skin: Intact with no visualized rashes Psych: Normal affect and mood ED course: 78-year-old female presents with chief complaint chest pain. Symptoms are very atypical. She does have risk factors of age and comorbidi ties.. Signs upon arrival are within acceptable limits. Patient is a poor historian. I bedside she appears to be having colicky chest pain. Initial EKG did not show any signs of ST segment elevation [place]. Patient given analgesia. She is reevaluated improvement of symptoms. Laboratory evaluation obtained on the unremarkable. O2 sats troponins negative. Chest x-ray is nonacute. Patient appears comfortable at this time. Discussed with patient that her symptoms are not suggestive of acute coronary syndrome or significant life- threatening cardiopulmonary disease at this time. Patient is clear for discharge. Return parameters discussed. Patient told to follow-up with primary care physician for outpatient management of chest pain. EKG interpretation: Ventricular rate 64, sinus rhythm, TN interval 184, care 74, QTC 422. No TN prolongation, no QTC prolongation, no ST or T-wave changes noted. EKG compared to 03/28/2019 showing no changes. Overall, this EKG is unremarkable - Related Data Home Medications Medication Instructions Recorded Confirmed Oxybutynin Chloride [Oxybutynin 10 mg PO DAILY 12/04/17 04/09/19 Chloride ER] glipiZIDE XL [Glucotrol XL] 5 mg PO DAILY 12/04/17 04/09/19 Apixaban [Eliquis] 5 mg PO BID 04/09/18 04/09/19 amLODIPine [Norvasc] 5 mg PO DAILY 04/09/18 04/09/19 sitaGLIPtin [Januvia] 100 mg PO DAILY 04/09/18 04/09/19 Biotin 10,000 mcg PO BID 03/28/19 04/09/19 Buprenorphine HCl [Belbuca] 75 mcg BC Q12H PRN 03/28/19 04/09/19 Furosemide [Lasix] 40 mg PO DAILY 03/28/19 04/09/19 HYDROcodone/APAP 5-325MG [[place] 1 tab PO BID PRN 03/28/19 04/09/19 5-325] Insuln Asp Prt/Insulin Aspart 20 unit SQ DAILY 03/28/19 04/09/19 [NovoLOG MIX 70-30 VIAL] Losartan Potassium [Cozaar] 25 mg PO BID 03/28/19 04/09/19 Montelukast [Singulair] 10 mg PO DAILY 03/28/19 04/09/19 Atorvastatin [Lipitor] 40 mg PO DAILY 04/09/19 04/09/19 Metoprolol Tartrate [Lopressor] 25 mg PO QAM 04/09/19 04/09/19 Allergies Allergy/AdvReac Type Severity Reaction Status Date / Time tetracycline Allergy Unknown Verified 04/09/19 07:25 fentanyl AdvReac "IN Verified 04/09/19 07:25 ANOTHER PLANET, DIDNT KNOW WHERE SHE WAS" morphine AdvReac Nausea & Verified 04/09/19 07:25 Vomiting Review of Systems ROS Statement: Those systems with pertinent positive or pertinent negative responses have been documented in the HPI. ROS Other: All systems not noted in ROS Statement are negative. Past Medical History Past Medical History: Atrial Fibrillation, Chest Pain / Angina, Diabetes Mellitus, Hyperlipidemia, Hypertension, Osteoarthritis (OA), Pneumonia Additional Past Medical History / Comment(s): Paroxysmal Afib, POST OP INFECTION AFTER BACK SURGERY, CHRONIC BACK PAIN FROM T8 FX, difficulty walking d/t back pain, CHRONIC PERIPHERAL LEG EDEMA, UTIs, R humerus fracture. History of Any Multi-Drug Resistant Organisms: None Reported Past Surgical History: Back Surgery, Cholecystectomy, Orthopedic Surgery Additional Past Surgical History / Comment(s): 2015 LUMBAR SURGERY, FX NOSE REPAIR, BILATERAL CATARACT SURGERY, R WRIST CARPAL TUNNEL SURGERY, kyphoplasty T8 ON 06/26/16 AND ONE BEFORE. Past Anesthesia/Blood Transfusion Reactions: No Reported Reaction Additional Past Anesthesia/Blood Transfusion Reaction / Comment(s): NEVER HAD A BLOOD TRANSFUSION. Past Psychological History: No Psychological Hx Reported Smoking Status: Never smoker Past Alcohol Use History: None Reported Past Drug Use History: None Reported - Past Family History Father Family Medical History: Myocardial Infarction ([place]) Additional Family Medical History / Comment(s): FATHER AT AGE 52 OF AN [place] Mother Additional Family Medical History / Comment(s): MOTHER AT AGE 89 OF CELEBREX PROBLEM. Course Vital Signs 04/09/19 04/09/19 04/09/19 06:56 07:10 07:30 Temperature 98.0 F Pulse Rate 79 73 72 Respiratory 18 16 19 Rate Blood Pressure 137/56 132/61 O2 Sat by Pulse 99 Oximetry 04/09/19 04/09/19 04/09/19 08:00 08:30 09:00 Temperature Pulse Rate 65 68 Respiratory 9 L 18 12 Rate Blood Pressure 124/48 118/72 O2 Sat by Pulse 98 Oximetry 04/09/19 04/09/19 04/09/19 09:30 10:00 10:30 Temperature Pulse Rate 66 68 68 Respiratory 19 17 17 Rate Blood Pressure 119/56 111/57 123/67 O2 Sat by Pulse Oximetry 04/09/19 04/09/19 11:00 11:29 Temperature Pulse Rate 67 65 Respiratory 18 18 Rate Blood Pressure 140/71 125/63 O2 Sat by Pulse 97 Oximetry Medical Decision Making - Lab Data Result diagrams: 04/09/19 07:46 04/09/19 07:46 Lab Results 04/09/19 04/09/19 04/09/19 Range/Units 07:46 07:46 07:46 WBC 6.0 (3.8-10.6) k/uL RBC 3.87 (3.80-5.40) m/uL Hgb 12.3 (11.4-16.0) gm/dL Hct 37.1 (34.0-46.0) % MCV 95.9 (80.0-100.0) fL MCH 31.7 (25.0-35.0) pg MCHC 33.1 (31.0-37.0) g/dL RDW 13.1 (11.5-15.5) % Plt Count 209 (150-450) k/uL Neutrophils % 77 % Lymphocytes % 11 % Monocytes % 5 % Eosinophils % 2 % Basophils % 2 % Neutrophils # 4.7 (1.3-7.7) k/uL Lymphocytes # 0.7 L (1.0-4.8) k/uL Monocytes # 0.3 (0-1.0) k/uL Eosinophils # 0.1 (0-0.7) k/uL Basophils # 0.1 (0-0.2) k/uL PT 10.2 (9.0-12.0) sec INR 0.9 (<1.2) APTT 24.9 (22.0-30.0) sec Sodium 140 (137-145) mmol/L Potassium 4.6 (3.5-5.1) mmol/L Chloride 105 (98-107) mmol/L Carbon Dioxide 24 (22-30) mmol/L Anion Gap 11 mmol/L BUN 38 H (7-17) mg/dL Creatinine 1.38 H (0.52-1.04) mg/dL Est GFR (CKD-EPI)AfAm 43 (>60 ml/min/1.73 sqM) Est GFR (CKD-EPI)NonAf 37 (>60 ml/min/1.73 sqM) Glucose 190 H (74-99) mg/dL Calcium 9.9 (8.4-10.2) mg/dL Magnesium 2.0 (1.6-2.3) mg/dL Total Bilirubin 0.9 (0.2-1.3) mg/dL AST 37 H (14-36) U/L ALT 21 (9-52) U/L Alkaline Phosphatase 96 (38-126) U/L Troponin I (0.000-0.034) ng/mL NT-Pro-B Natriuret Pep pg/mL Total Protein 7.1 (6.3-8.2) g/dL Albumin 4.1 (3.5-5.0) g/dL 04/09/19 04/09/19 04/09/19 Range/Units 07:46 07:46 11:13 WBC (3.8-10.6) k/uL RBC (3.80-5.40) m/uL Hgb (11.4-16.0) gm/dL Hct (34.0-46.0) % MCV (80.0-100.0) fL MCH (25.0-35.0) pg MCHC (31.0-37.0) g/dL RDW (11.5-15.5) % Plt Count (150-450) k/uL Neutrophils % % Lymphocytes % % Monocytes % % Eosinophils % % Basophils % % Neutrophils # (1.3-7.7) k/uL Lymphocytes # (1.0-4.8) k/uL Monocytes # (0-1.0) k/uL Eosinophils # (0-0.7) k/uL Basophils # (0-0.2) k/uL PT (9.0-12.0) sec INR (<1.2) APTT (22.0-30.0) sec Sodium (137-145) mmol/L Potassium (3.5-5.1) mmol/L Chloride (98-107) mmol/L Carbon Dioxide (22-30) mmol/L Anion Gap mmol/L BUN (7-17) mg/dL Creatinine (0.52-1.04) mg/dL Est GFR (CKD-EPI)AfAm (>60 ml/min/1.73 sqM) Est GFR (CKD-EPI)NonAf (>60 ml/min/1.73 sqM) Glucose (74-99) mg/dL Calcium (8.4-10.2) mg/dL Magnesium (1.6-2.3) mg/dL Total Bilirubin (0.2-1.3) mg/dL AST (14-36) U/L ALT (9-52) U/L Alkaline Phosphatase (38-126) U/L Troponin I <0.012 <0.012 (0.000-0.034) ng/mL NT-Pro-B Natriuret Pep 183 pg/mL Total Protein (6.3-8.2) g/dL Albumin (3.5-5.0) g/dL Disposition Clinical Impression: Chest pain Disposition: HOME SELF-CARE Condition: Good Instructions (If sedation given, give patient instructions): Chest Pain (ED) Is patient prescribed a controlled substance at d/c from ED?: No Referrals: Rox Parmar DO [Primary Care Provider] - 1-2 days Time of Disposition: 12:16
[2019-04-09] MEDS ORDERED: MORPHINE SULFATE 4 MG/ML SYRINGE IV STA (07:44)
[2019-04-09] MEDS ORDERED: HYDROmorphone 0.5 MG/0.5 ML SYRINGE IVP STA (07:45)
[2019-04-09 08:50] LABS: RBC 3.87 m/uL (3.80-5.40)
[2019-04-09 08:51] LABS: Basophils # (A) 0.1 k/uL (0-0.2); Basophils % (A) 2 %; Eosinophils # (A) 0.1 k/uL (0-0.7); Eosinophils % (A) 2 %; HCT 37.1 % (34.0-46.0); HGB 12.3 gm/dL (11.4-16.0); Lymphocytes # (A) 0.7 k/uL (1.0-4.8); Lymphocytes % (A) 11 %; MCH 31.7 pg (25.0-35.0); MCHC 33.1 g/dL (31.0-37.0); MCV 95.9 fL (80.0-100.0); Mean Platelet Volume 8.5; Monocytes # (A) 0.3 k/uL (0-1.0); Monocytes % (A) 5 %; Neutrophils # (A) 4.7 k/uL (1.3-7.7); Neutrophils % (A) 77 %; Platelet Count 209 k/uL (150-450); RDW 13.1 % (11.5-15.5)
--- NOTE | 2019-04-09 08:59 | XR ---
EXAMINATION TYPE: XR chest 2V DATE OF EXAM: 04/09/2019 COMPARISON: 03/28/2019 HISTORY: Chest pain TECHNIQUE: Frontal and lateral views of the chest are obtained. FINDINGS: There is no focal air space opacity, pleural effusion, or pneumothorax seen. Scattered are as of platelike subsegmental atelectasis are seen on the left in the lower lung. The cardiac silhouet te size is within normal limits. Multiple vertebral plasties are noted in the thoracic spine. There i s diffuse osseous demineralization. Tubing overlies the central chest. IMPRESSION: Multifocal left basilar subsegmental atelectasis. Otherwise no acute cardiopulmonary pro cess.
[2019-04-09 09:00] LABS: Albumin 4.1 g/dL (3.5-5.0); Calcium 9.9 mg/dL (8.4-10.2); Total Bilirubin 0.9 mg/dL (0.2-1.3); Total Protein 7.1 g/dL (6.3-8.2)
[2019-04-09 09:02] LABS: INR 0.9 (<1.2); Partial Thromboplastin Time 24.9 sec (22.0-30.0); Prothrombin Time 10.2 sec (9.0-12.0)
[2019-04-09 09:09] LABS: Potassium 4.6 mmol/L (3.5-5.1)
[2019-04-09 11:31] VITALS: BP 125/63; PULSE 65
[2019-04-09 12:28] VITALS: TEMP 98.1
== END 2019-04-09 12:23 | disposition home or self-care (01) ==
LOC: EC 06:51
DX: R07.89 Other chest pain (principal); M54.9 Dorsalgia, unspecified; I48.0 Paroxysmal atrial fibrillation; E11.9 Type 2 diabetes mellitus without complications; E78.5 Hyperlipidemia, unspecified; I10 Essential (primary) hypertension; Z88.1 Allergy status to other antibiotic agents; Z88.5 Allergy status to narcotic agent; Z79.01 Long term (current) use of anticoagulants; Z79.4 Long term (current) use of insulin; Z79.899 Other long term (current) drug therapy; Z87.01 Personal history of pneumonia (recurrent); Z98.890 Other specified postprocedural states; Z82.49 Family history of ischemic heart disease and other diseases of the circulatory system; Z53.8 Procedure and treatment not carried out for other reasons
CPT/HCPCS: 36415; 93005; 83880; 80053; 83735; 84484; 85025; 85610; 85730; 71046; 99285; 96374; J1170

== ENCOUNTER 2019-06-26 22:54 | Emergency (ER) | payer MEDICARE ==
[2019-06-27] MEDS ORDERED: HYDROmorphone 1 MG/ML 1 ML SYRINGE IM STA (00:14)
[2019-06-27 01:02] VITALS: BP 133/52; PULSE 61; RESP 18; TEMP 97
--- NOTE | 2019-06-27 01:03 | ED ---
Back Pain [facility] - General Chief Complaint: Back Pain/Injury Stated Complaint: Muscle Spasms Time Seen by Provider: 06/26/19 23:45 Source: patient Limitations: no limitations - History of Present Illness Initial Comments: The patient is a 78 year old female with past history of A. fib, diabetes and chronic back pain who presents to the emergency room with reported back pain. She states that she has had chronic back pain for the past 35 years. She reports to herniated disc. She did have surgery in 2015 however that did not help her symptoms. She reports her last MRI was 2 years ago. She is currently under a chest pain coordinator at [address] [place] [address]. Reports that she was recently placed on buprenophrene patches. They were increased to 20 mg and she ages them once a week. States that tonight she had increasing right-sided lower back pain which is consistent with her chronic pain. Denies any new weakness in her lower extremities. Denies any bowel or bladder incontinence. No saddle anesthesia. States that there are no new symptoms from her previous exacerbation of pain. No fevers or chills. She is ambulatory without difficulty. States that she will occasionally have to come to the hospital for pain shot. He also has [place] at home that she can take for pain control however states she did not take any of these. There are no other alleviating, precipitating or modifying factors - Related Data Home Medications Medication Instructions Recorded Confirmed Oxybutynin Chloride [Oxybutynin 10 mg PO DAILY 12/04/17 04/09/19 Chloride ER] glipiZIDE XL [Glucotrol XL] 5 mg PO DAILY 12/04/17 04/09/19 Apixaban [Eliquis] 5 mg PO BID 04/09/18 04/09/19 amLODIPine [Norvasc] 5 mg PO DAILY 04/09/18 04/09/19 sitaGLIPtin [Januvia] 100 mg PO DAILY 04/09/18 04/09/19 Biotin 10,000 mcg PO BID 03/28/19 04/09/19 Buprenorphine HCl [[place]] 75 mcg BC Q12H PRN 03/28/19 04/09/19 Furosemide [Lasix] 40 mg PO DAILY 03/28/19 04/09/19 HYDROcodone/APAP 5-325MG [[place] 1 tab PO BID PRN 03/28/19 04/09/19 5-325] Insuln Asp Prt/Insulin Aspart 20 unit SQ DAILY 03/28/19 04/09/19 [NovoLOG MIX 70-30 VIAL] Losartan Potassium [Cozaar] 25 mg PO BID 03/28/19 04/09/19 Montelukast [Singulair] 10 mg PO DAILY 03/28/19 04/09/19 Atorvastatin [Lipitor] 40 mg PO DAILY 04/09/19 04/09/19 Metoprolol Tartrate [Lopressor] 25 mg PO QAM 04/09/19 04/09/19 Allergies Allergy/AdvReac Type Severity Reaction Status Date / Time tetracycline Allergy Unknown Verified 06/26/19 23:46 fentanyl AdvReac "IN Verified 06/26/19 23:46 ANOTHER PLANET, DIDNT KNOW WHERE SHE WAS" morphine AdvReac Nausea & Verified 06/26/19 23:46 Vomiting Review of Systems ROS Statement: Those systems with pertinent positive or pertinent negative responses have been documented in the HPI. ROS Other: All systems not noted in ROS Statement are negative. Past Medical History Past Medical History: Atrial Fibrillation, Chest Pain / Angina, Diabetes Mellitus, Hyperlipidemia, Hypertension, Osteoarthritis (OA), Pneumonia Additional Past Medical History / Comment(s): Paroxysmal Afib, POST OP INFECTION AFTER BACK SURGERY, CHRONIC BACK PAIN FROM T8 FX, difficulty walking d/t back pain, CHRONIC PERIPHERAL LEG EDEMA, UTIs, R humerus fracture. History of Any Multi-Drug Resistant Organisms: None Reported Past Surgical History: Back Surgery, Cholecystectomy, Orthopedic Surgery Additional Past Surgical History / Comment(s): 2015 LUMBAR SURGERY, FX NOSE REPAIR, BILATERAL CATARACT SURGERY, R WRIST CARPAL TUNNEL SURGERY, kyphoplasty T8 ON 06/26/16 AND ONE BEFORE. Past Anesthesia/Blood Transfusion Reactions: No Reported Reaction Additional Past Anesthesia/Blood Transfusion Reaction / Comment(s): NEVER HAD A BLOOD TRANSFUSION. Past Psychological History: No Psychological Hx Reported Smoking Status: Never smoker Past Alcohol Use History: None Reported Past Drug Use History: None Reported - Past Family History Father Family Medical History: Myocardial Infarction ([place]) Additional Family Medical History / Comment(s): FATHER AT AGE 52 OF AN [place] Mother Additional Family Medical History / Comment(s): MOTHER AT AGE 89 OF CELEBREX PROBLEM. General Exam Limitations: no limitations General appearance: alert, in no apparent distress Head exam: Present: atraumatic, normocephalic, normal inspection Eye exam: Present: normal appearance, PERRL, EOMI. Absent: scleral icterus, conjunctival injection, periorbital swelling ENT exam: Present: normal exam, mucous membranes moist Neck exam: Present: normal inspection. Absent: tenderness, meningismus, lymphadenopathy Respiratory exam: Present: normal lung sounds bilaterally. Absent: respiratory distress, wheezes, rales, rhonchi, stridor Cardiovascular Exam: Present: regular rate, normal rhythm, normal heart sounds. Absent: systolic murmur, diastolic murmur, rubs, gallop, clicks GI/Abdominal exam: Present: soft, normal bowel sounds. Absent: distended, tenderness, guarding, rebound, rigid Extremities exam: Present: normal inspection, full ROM, normal capillary refill, other (5/5 muscle strength in her bilaterally lower extremites. Intact distal sensation. 2+ DP and PT pulses). Absent: tenderness, pedal edema, joint swelling, calf tenderness Back exam: Present: normal inspection, muscle spasm, paraspinal tenderness (L2- L5). Absent: vertebral tenderness Neurological exam: Present: alert, oriented X3, CN II-XII intact Psychiatric exam: Present: normal affect, normal mood Skin exam: Present: warm, dry, intact, normal color. Absent: rash Course Vital Signs 06/26/19 06/27/19 23:43 01:00 Temperature 97.5 F L 97.0 F L Pulse Rate 72 61 Respiratory 24 18 Rate Blood Pressure 147/58 133/52 O2 Sat by Pulse 97 97 Oximetry Medical Decision Making - Medical Decision Making Upon arrival the patient is placed into room 4. A thorough history and physical exam was performed. I did recommend repeating imaging on the patient however she refuses stating that this is her same pain that she had for the past 35 years. She is requesting Dilaudid. States this is the only that helps her with her pain. I did provide her with dose. I did inform her prior to administration the risks of using opioid pain medications in addition to the patches that she currently has on. She understands this. Given a dose of pain medication and closely and no sedation is noted from the patient. She does have adequate relief from her pain and states that she is ready to go home at this time. I did discuss diagnosis, differential and treatment options. She must follow-up with her pain management doctor for further medication adjustments. If she has any new or worsening symptoms she should return to the emergency room. Patient was in agreement with the treatment plan and discharged home ambulatory in stable condition Disposition Clinical Impression: Chronic back pain Disposition: HOME SELF-CARE Condition: Stable Instructions (If sedation given, give patient instructions): Acute Low Back Pain (ED) Additional Instructions: Please follow-up with your primary care doctor in 2-4 days. Return to the emergency room for any new or worsening symptoms Is patient prescribed a controlled substance at d/c from ED?: No Referrals: Rox Parmar DO [Primary Care Provider] - 1-2 days Time of Disposition: 01:03
== END 2019-06-27 01:10 | disposition home or self-care (01) ==
LOC: EC 22:54
DX: G89.29 Other chronic pain (principal); M54.5 Low back pain; E78.5 Hyperlipidemia, unspecified; I10 Essential (primary) hypertension; I48.0 Paroxysmal atrial fibrillation; E11.9 Type 2 diabetes mellitus without complications; M19.90 Unspecified osteoarthritis, unspecified site; Z87.39 Personal history of other diseases of the musculoskeletal system and connective tissue; Z98.890 Other specified postprocedural states; Z79.01 Long term (current) use of anticoagulants; Z79.891 Long term (current) use of opiate analgesic; Z79.4 Long term (current) use of insulin; Z79.899 Other long term (current) drug therapy; Z88.1 Allergy status to other antibiotic agents; Z88.5 Allergy status to narcotic agent; Z53.29 Procedure and treatment not carried out because of patient's decision for other reasons
CPT/HCPCS: 99283; 96372; J1170

== ENCOUNTER 2019-07-09 09:48 | Emergency (ER) | payer MEDICARE ==
[2019-07-09 09:59] VITALS: TEMP 98
--- NOTE | 2019-07-09 10:22 | ED ---
SOB HPI - General Chief Complaint: Shortness of Breath Stated Complaint: MARGE Time Seen by Provider: 07/09/19 10:02 Source: patient Mode of arrival: ambulatory Limitations: no limitations - History of Present Illness Initial Comments: patient is 78-year-old female with history of A. fib and chronic back pain presenting to the emergency department with a chief complaint of shortness of breath. Patient reports intermittent dyspnea for past 2-3 years but it has gradually increased in severity over the last few weeks. Patient reports initially was dyspnea on exertion now she is having dyspnea at rest. She states yesterday she had a midsternal sharp chest pain exacerbated with full inspiration. The chest pain lasted the whole day and eventually resolved. no radiation of the pain to the jaw other left upper extremity. No chest pain today. no diaphoretic episodes, nausea, vomiting, lightheadedness or dizziness. Patient denies any cough wheezing. No history of asthma COPD or smoking.denies any night sweats or Chills. She states the bilateral extremity edema is chronic with no recent changes. - Related Data Home Medications Medication Instructions Recorded Confirmed Oxybutynin Chloride [Oxybutynin 10 mg PO DAILY 12/04/17 07/09/19 Chloride ER] glipiZIDE XL [Glucotrol XL] 5 mg PO DAILY 12/04/17 07/09/19 Apixaban [Eliquis] 5 mg PO BID 04/09/18 07/09/19 amLODIPine [Norvasc] 5 mg PO DAILY 04/09/18 07/09/19 sitaGLIPtin [Januvia] 100 mg PO DAILY 04/09/18 07/09/19 Biotin 10,000 mcg PO BID 03/28/19 07/09/19 Furosemide [Lasix] 40 mg PO DAILY 03/28/19 07/09/19 HYDROcodone/APAP 5-325MG [[place] 1 tab PO BID PRN 03/28/19 07/09/19 5-325] Insuln Asp Prt/Insulin Aspart 20 unit SQ DAILY 03/28/19 07/09/19 [NovoLOG MIX 70-30 VIAL] Losartan Potassium [Cozaar] 25 mg PO BID 03/28/19 07/09/19 Montelukast [Singulair] 10 mg PO DAILY 03/28/19 07/09/19 Atorvastatin [Lipitor] 40 mg PO DAILY 04/09/19 07/09/19 Metoprolol Tartrate [Lopressor] 25 mg PO QAM 04/09/19 07/09/19 Buprenorphine [Buprenorphine 1 patch TRANSDERM DIRECTED 07/09/19 07/09/19 10MCG/HR] Buprenorphine [Buprenorphine 20 1 patch TRANSDERM DIRECTED 07/09/19 07/09/19 MCG/HR] Allergies Allergy/AdvReac Type Severity Reaction Status Date / Time tetracycline Allergy Unknown Verified 07/09/19 12:01 fentanyl AdvReac "IN Verified 07/09/19 12:01 ANOTHER PLANET, DIDNT KNOW WHERE SHE WAS" morphine AdvReac Nausea & Verified 07/09/19 12:01 Vomiting Review of Systems ROS Statement: Those systems with pertinent positive or pertinent negative responses have been documented in the HPI. ROS Other: All systems not noted in ROS Statement are negative. Past Medical History Past Medical History: Atrial Fibrillation, Chest Pain / Angina, Diabetes Mellitus, Hyperlipidemia, Hypertension, Osteoarthritis (OA), Pneumonia Additional Past Medical History / Comment(s): Paroxysmal Afib, POST OP INFECTION AFTER BACK SURGERY, CHRONIC BACK PAIN FROM T8 FX, difficulty walking d/t back pain, CHRONIC PERIPHERAL LEG EDEMA, UTIs, R humerus fracture. History of Any Multi-Drug Resistant Organisms: None Reported Past Surgical History: Back Surgery, Cholecystectomy, Orthopedic Surgery Additional Past Surgical History / Comment(s): 2015 LUMBAR SURGERY, FX NOSE REPAIR, BILATERAL CATARACT SURGERY, R WRIST CARPAL TUNNEL SURGERY, kyphoplasty T8 ON 06/26/16 AND ONE BEFORE. Past Anesthesia/Blood Transfusion Reactions: No Reported Reaction Additional Past Anesthesia/Blood Transfusion Reaction / Comment(s): NEVER HAD A BLOOD TRANSFUSION. Past Psychological History: No Psychological Hx Reported Smoking Status: Never smoker Past Alcohol Use History: None Reported Past Drug Use History: None Reported - Past Family History Father Family Medical History: Myocardial Infarction ([place]) Additional Family Medical History / Comment(s): FATHER AT AGE 52 OF AN [place] Mother Additional Family Medical History / Comment(s): MOTHER AT AGE 89 OF CELEBREX PROBLEM. General Exam Limitations: no limitations General appearance: alert, in no apparent distress, obese Head exam: Present: atraumatic, normocephalic, normal inspection Eye exam: Present: normal appearance Pupils: Present: normal accommodation ENT exam: Present: normal exam, mucous membranes moist Neck exam: Present: normal inspection, full ROM Respiratory exam: Present: normal lung sounds bilaterally. Absent: chest wall tenderness Cardiovascular Exam: Present: regular rate, normal rhythm, normal heart sounds Extremities exam: Present: normal inspection, full ROM, pedal edema (+2 bilateral pitting edema.). Absent: calf tenderness (negative Homans bilaterally.) Back exam: Present: normal inspection, full ROM Neurological exam: Present: alert, oriented X3 Psychiatric exam: Present: normal affect, normal mood Skin exam: Present: warm, dry, intact, normal color Course Vital Signs 07/09/19 07/09/19 07/09/19 09:57 10:00 10:58 Temperature 98.0 F Pulse Rate 76 88 Respiratory 26 H 26 H 24 Rate Blood Pressure 172/75 130/57 O2 Sat by Pulse 96 97 Oximetry 07/09/19 07/09/19 12:05 12:35 Temperature Pulse Rate 88 65 Respiratory 26 H 20 Rate Blood Pressure 136/71 O2 Sat by Pulse 92 L 95 Oximetry Medical Decision Making - Medical Decision Making patient is 78-year-old female with history of A. fib presenting to emergency Department with a chief complaint of shortness of breath. Patient has been having symptoms for about a week and gradually increased in severity. What initially started with dyspnea awith exertion now occurs at rest. No chest pain. EKG shows no ST changes. Initial troponin is negative. D-dimer negative. CBC CMP unremarkable.coags within limits. Chest x-ray unremarkable. Patient was on 2 L of nasal cannula throughout the whole ED stay. On reevaluation patient reports her dyspnea has resolved. Patient states that she wants to go home and would like to follow with primary care to possibly obtain a portable oxygen tank. Patient was asked family. Patient continues to be slightly dyspneic but states this is completely at her baseline. O2 sat after ambulation was 92. Patient reports she does not want to stay in the ED for further management. patient was previously in the ED with similar symptoms and was discharged after oxygen administration and a negative cardiac workup. Patient advised to follow with primary care. Strict return parameters were thoroughly discussed the patient was understanding and agreeable. Case discussed with physician. - Lab Data Result diagrams: 07/09/19 10:39 07/09/19 10:39 Lab Results 07/09/19 07/09/19 07/09/19 Range/Units 10:39 10:39 10:39 WBC 8.1 (3.8-10.6) k/uL RBC 4.29 (3.80-5.40) m/uL Hgb 12.7 (11.4-16.0) gm/dL Hct 40.6 (34.0-46.0) % MCV 94.6 (80.0-100.0) fL MCH 29.6 (25.0-35.0) pg MCHC 31.3 (31.0-37.0) g/dL RDW 12.8 (11.5-15.5) % Plt Count 239 (150-450) k/uL Neutrophils % 83 % Lymphocytes % 10 % Monocytes % 4 % Eosinophils % 2 % Basophils % 1 % Neutrophils # 6.7 (1.3-7.7) k/uL Lymphocytes # 0.8 L (1.0-4.8) k/uL Monocytes # 0.4 (0-1.0) k/uL Eosinophils # 0.1 (0-0.7) k/uL Basophils # 0.0 (0-0.2) k/uL PT 10.8 (9.0-12.0) sec INR 1.0 (<1.2) APTT 25.7 (22.0-30.0) sec D-Dimer 0.56 (<0.60) mg/L FEU Sodium 145 (137-145) mmol/L Potassium 3.6 (3.5-5.1) mmol/L Chloride 107 (98-107) mmol/L Carbon Dioxide 31 H (22-30) mmol/L Anion Gap 7 mmol/L BUN 15 (7-17) mg/dL Creatinine 0.99 (0.52-1.04) mg/dL Est GFR (CKD-EPI)AfAm 64 (>60 ml/min/1.73 sqM) Est GFR (CKD-EPI)NonAf 56 (>60 ml/min/1.73 sqM) Glucose 82 (74-99) mg/dL Calcium 9.8 (8.4-10.2) mg/dL Total Bilirubin 1.3 (0.2-1.3) mg/dL AST 39 H (14-36) U/L ALT 23 (4-34) U/L Alkaline Phosphatase 145 H (38-126) U/L Troponin I (0.000-0.034) ng/mL Total Protein 7.2 (6.3-8.2) g/dL Albumin 4.2 (3.5-5.0) g/dL 07/09/19 Range/Units 10:39 WBC (3.8-10.6) k/uL RBC (3.80-5.40) m/uL Hgb (11.4-16.0) gm/dL Hct (34.0-46.0) % MCV (80.0-100.0) fL MCH (25.0-35.0) pg MCHC (31.0-37.0) g/dL RDW (11.5-15.5) % Plt Count (150-450) k/uL Neutrophils % % Lymphocytes % % Monocytes % % Eosinophils % % Basophils % % Neutrophils # (1.3-7.7) k/uL Lymphocytes # (1.0-4.8) k/uL Monocytes # (0-1.0) k/uL Eosinophils # (0-0.7) k/uL Basophils # (0-0.2) k/uL PT (9.0-12.0) sec INR (<1.2) APTT (22.0-30.0) sec D-Dimer (<0.60) mg/L FEU Sodium (137-145) mmol/L Potassium (3.5-5.1) mmol/L Chloride (98-107) mmol/L Carbon Dioxide (22-30) mmol/L Anion Gap mmol/L BUN (7-17) mg/dL Creatinine (0.52-1.04) mg/dL Est GFR (CKD-EPI)AfAm (>60 ml/min/1.73 sqM) Est GFR (CKD-EPI)NonAf (>60 ml/min/1.73 sqM) Glucose (74-99) mg/dL Calcium (8.4-10.2) mg/dL Total Bilirubin (0.2-1.3) mg/dL AST (14-36) U/L ALT (4-34) U/L Alkaline Phosphatase (38-126) U/L Troponin I <0.012 (0.000-0.034) ng/mL Total Protein (6.3-8.2) g/dL Albumin (3.5-5.0) g/dL - EKG Data EKG Comments: sinus arrhythmia, no ST changes Ventricular rate 67, NM interval 176, QRS duration 76, QT/QTc 420/452 Disposition Clinical Impression: Shortness of breath Disposition: HOME SELF-CARE Condition: Good Instructions (If sedation given, give patient instructions): Dyspnea (ED) Additional Instructions: Please follow with primary care. Sensation to emergency department if symptoms worsen. Is patient prescribed a controlled substance at d/c from ED?: No Referrals: Rox Parmar DO [Primary Care Provider] - 1-2 days Time of Disposition: 12:08
--- NOTE | 2019-07-09 11:05 | XR ---
EXAMINATION TYPE: XR chest 2V DATE OF EXAM: 07/09/2019 COMPARISON: 04/09/2019 HISTORY: Difficulty breathing TECHNIQUE: Frontal and lateral views of the chest are obtained. FINDINGS: There is no focal air space opacity, pleural effusion, or pneumothorax seen. Platelike le ft basilar atelectasis is unchanged from the prior. The cardiac silhouette size is within normal limi ts. The osseous structures are intact. Multiple vertebral plasties of the thoracic spine. Cholecyst ectomy clips are seen. IMPRESSION: Stable platelike left midlung atelectasis. No acute cardiopulmonary process.
[2019-07-09 11:06] LABS: Basophils % (A) 1 %; Eosinophils # (A) 0.1 k/uL (0-0.7); Eosinophils % (A) 2 %; HCT 40.6 % (34.0-46.0); HGB 12.7 gm/dL (11.4-16.0); Lymphocytes # (A) 0.8 k/uL (1.0-4.8); Lymphocytes % (A) 10 %; MCH 29.6 pg (25.0-35.0); MCHC 31.3 g/dL (31.0-37.0); MCV 94.6 fL (80.0-100.0); Mean Platelet Volume 8.7; Monocytes # (A) 0.4 k/uL (0-1.0); Monocytes % (A) 4 %; Neutrophils # (A) 6.7 k/uL (1.3-7.7); Neutrophils % (A) 83 %; Platelet Count 239 k/uL (150-450); RBC 4.29 m/uL (3.80-5.40); RDW 12.8 % (11.5-15.5); WBC 8.1 k/uL (3.8-10.6)
[2019-07-09 11:15] LABS: Albumin 4.2 g/dL (3.5-5.0); Calcium 9.8 mg/dL (8.4-10.2); Potassium 3.6 mmol/L (3.5-5.1); Total Bilirubin 1.3 mg/dL (0.2-1.3); Total Protein 7.2 g/dL (6.3-8.2)
[2019-07-09 11:30] LABS: D-Dimer 0.56 mg/L FEU (<0.60); Partial Thromboplastin Time 25.7 sec (22.0-30.0); Prothrombin Time 10.8 sec (9.0-12.0)
[2019-07-09 12:37] VITALS: BP 136/71; PULSE 65; RESP 20
== END 2019-07-09 12:36 | disposition home or self-care (01) ==
LOC: EC 09:48
DX: R06.02 Shortness of breath (principal); R06.00 Dyspnea, unspecified; R07.89 Other chest pain; E11.9 Type 2 diabetes mellitus without complications; E78.5 Hyperlipidemia, unspecified; I10 Essential (primary) hypertension; I48.0 Paroxysmal atrial fibrillation; Z79.01 Long term (current) use of anticoagulants; Z79.4 Long term (current) use of insulin; Z79.899 Other long term (current) drug therapy; Z88.1 Allergy status to other antibiotic agents; Z88.5 Allergy status to narcotic agent
CPT/HCPCS: 36415; 71046; 80053; 84484; 85025; 85379; 85610; 85730; 93005; 99285

== ENCOUNTER 2019-07-10 11:40 | Inpatient (IN) | payer MEDICARE ==
--- NOTE | 2019-07-10 12:09 | ED ---
General Adult HPI - General Chief complaint: Shortness of Breath Stated complaint: SOB Time Seen by Provider: 07/10/19 11:49 Source: patient, RN notes reviewed, old records reviewed Mode of arrival: wheelchair Limitations: no limitations - History of Present Illness Initial comments: 78-year-old female presents for evaluation of dyspnea. His been progressive over many months. She was seen in the emergency department yesterday and was discharged with close outpatient follow-up. She presented to her primary care physician today with similar complaints of dyspnea and recommendation for home oxygen. She remained dyspneic in the office and was sent to the emergency department for further evaluation. She denies significant cough. Denies fever or chills. Denies central chest pain. No history DVT or PE. She has a history of atrial fibrillation and is anticoagulated. No history of asthma or COPD. No history of congestive heart failure. - Related Data Home Medications Medication Instructions Recorded Confirmed Oxybutynin Chloride [Oxybutynin 10 mg PO DAILY 12/04/17 07/09/19 Chloride ER] glipiZIDE XL [Glucotrol XL] 5 mg PO DAILY 12/04/17 07/09/19 Apixaban [Eliquis] 5 mg PO BID 04/09/18 07/09/19 amLODIPine [Norvasc] 5 mg PO DAILY 04/09/18 07/09/19 sitaGLIPtin [Januvia] 100 mg PO DAILY 04/09/18 07/09/19 Biotin 10,000 mcg PO BID 03/28/19 07/09/19 Furosemide [Lasix] 40 mg PO DAILY 03/28/19 07/09/19 HYDROcodone/APAP 5-325MG [[place] 1 tab PO BID PRN 03/28/19 07/09/19 5-325] Insuln Asp Prt/Insulin Aspart 20 unit SQ DAILY 03/28/19 07/09/19 [NovoLOG MIX 70-30 VIAL] Losartan Potassium [Cozaar] 25 mg PO BID 03/28/19 07/09/19 Montelukast [Singulair] 10 mg PO DAILY 03/28/19 07/09/19 Atorvastatin [Lipitor] 40 mg PO DAILY 04/09/19 07/09/19 Metoprolol Tartrate [Lopressor] 25 mg PO QAM 04/09/19 07/09/19 Buprenorphine [Buprenorphine 1 patch TRANSDERM DIRECTED 07/09/19 07/09/19 10MCG/HR] Buprenorphine [Buprenorphine 20 1 patch TRANSDERM DIRECTED 07/09/19 07/09/19 MCG/HR] Allergies Allergy/AdvReac Type Severity Reaction Status Date / Time tetracycline Allergy Unknown Verified 07/10/19 11:47 fentanyl AdvReac "IN Verified 07/10/19 11:47 ANOTHER PLANET, DIDNT KNOW WHERE SHE WAS" morphine AdvReac Nausea & Verified 07/10/19 11:47 Vomiting Review of Systems ROS Statement: Those systems with pertinent positive or pertinent negative responses have been documented in the HPI. ROS Other: All systems not noted in ROS Statement are negative. Past Medical History Past Medical History: Atrial Fibrillation, Chest Pain / Angina, Diabetes Mellitus, Hyperlipidemia, Hypertension, Osteoarthritis (OA), Pneumonia Additional Past Medical History / Comment(s): Paroxysmal Afib, POST OP INFECTION AFTER BACK SURGERY, CHRONIC BACK PAIN FROM T8 FX, difficulty walking d/t back pain, CHRONIC PERIPHERAL LEG EDEMA, UTIs, R humerus fracture. History of Any Multi-Drug Resistant Organisms: None Reported Past Surgical History: Back Surgery, Cholecystectomy, Orthopedic Surgery Additional Past Surgical History / Comment(s): 2015 LUMBAR SURGERY, FX NOSE REPAIR, BILATERAL CATARACT SURGERY, R WRIST CARPAL TUNNEL SURGERY, kyphoplasty T8 ON 06/26/16 AND ONE BEFORE. Past Anesthesia/Blood Transfusion Reactions: No Reported Reaction Additional Past Anesthesia/Blood Transfusion Reaction / Comment(s): NEVER HAD A BLOOD TRANSFUSION. Past Psychological History: No Psychological Hx Reported Smoking Status: Never smoker Past Alcohol Use History: None Reported Past Drug Use History: None Reported - Past Family History Father Family Medical History: Myocardial Infarction ([place]) Additional Family Medical History / Comment(s): FATHER AT AGE 52 OF AN [place] Mother Additional Family Medical History / Comment(s): MOTHER AT AGE 89 OF CELEBREX PROBLEM. General Exam Limitations: no limitations General appearance: alert, in no apparent distress Head exam: Present: atraumatic, normocephalic Eye exam: Present: normal appearance, PERRL ENT exam: Present: normal exam Neck exam: Present: normal inspection. Absent: tenderness Respiratory exam: Present: normal lung sounds bilaterally, respiratory distress (mild). Absent: wheezes, rales, rhonchi Cardiovascular Exam: Present: regular rate, normal rhythm GI/Abdominal exam: Present: soft. Absent: distended, tenderness, guarding Extremities exam: Present: normal inspection, normal capillary refill. Absent: pedal edema, calf tenderness Neurological exam: Present: alert, oriented X3, CN II-XII intact. Absent: motor sensory deficit Skin exam: Present: warm, dry, intact. Absent: cyanosis, diaphoretic Course Vital Signs 07/10/19 07/10/19 07/10/19 11:46 12:23 14:03 Temperature 97.8 F Pulse Rate 77 80 Respiratory 22 18 18 Rate Blood Pressure 150/78 141/94 O2 Sat by Pulse 93 L 97 100 Oximetry EKG Findings - EKG Comments: EKG Findings:: EKG: Normal sinus rhythm, rate 72, TN interval 186, QRS duration 82, QTC 468, no ST segment elevation, T-wave inversion in lead 3. Medical Decision Making - Medical Decision Making 78 -year-old female presenting for reevaluation of dyspnea. On initial evaluation patient is tachypneic but able to speak in full sentences. She has good air entry on exam. No history of COPD, no history of heart failure. No history DVT or PE. I did have concern for PE is CT angiography was obtained which shows mild interstitial infiltrate, no pulmonary embolism. Infiltrate is treated with ceftriaxone and is to mass and as well as dose of Lasix in the emergency department. She has normal CBC, negative troponin, negative BNP. Pat ient remains symptomatic. She will be kept in observation for further treatment. Case discussed with the admitting physician. - Lab Data Result diagrams: 07/10/19 12:18 07/10/19 12:18 Lab Results 07/10/19 07/10/19 07/10/19 Range/Units 12:18 12:18 12:18 WBC 6.2 (3.8-10.6) k/uL RBC 4.06 (3.80-5.40) m/uL Hgb 11.9 (11.4-16.0) gm/dL Hct 38.1 (34.0-46.0) % MCV 93.7 (80.0-100.0) fL MCH 29.2 (25.0-35.0) pg MCHC 31.2 (31.0-37.0) g/dL RDW 12.8 (11.5-15.5) % Plt Count 221 (150-450) k/uL Neutrophils % 80 % Lymphocytes % 11 % Monocytes % 5 % Eosinophils % 1 % Basophils % 0 % Neutrophils # 5.0 (1.3-7.7) k/uL Lymphocytes # 0.7 L (1.0-4.8) k/uL Monocytes # 0.3 (0-1.0) k/uL Eosinophils # 0.1 (0-0.7) k/uL Basophils # 0.0 (0-0.2) k/uL PT (9.0-12.0) sec INR (<1.2) APTT (22.0-30.0) sec Sodium 142 (137-145) mmol/L Potassium 3.7 (3.5-5.1) mmol/L Chloride 105 (98-107) mmol/L Carbon Dioxide 28 (22-30) mmol/L Anion Gap 9 mmol/L BUN 17 (7-17) mg/dL Creatinine 1.06 H (0.52-1.04) mg/dL Est GFR (CKD-EPI)AfAm 59 (>60 ml/min/1.73 sqM) Est GFR (CKD-EPI)NonAf 51 (>60 ml/min/1.73 sqM) Glucose 168 H (74-99) mg/dL Plasma Lactic Acid Gary 2.0 (0.7-2.0) mmol/L Calcium 9.6 (8.4-10.2) mg/dL Magnesium 1.6 (1.6-2.3) mg/dL Total Bilirubin 1.3 (0.2-1.3) mg/dL AST 34 (14-36) U/L ALT 20 (4-34) U/L Alkaline Phosphatase 157 H (38-126) U/L Troponin I (0.000-0.034) ng/mL NT-Pro-B Natriuret Pep pg/mL Total Protein 6.7 (6.3-8.2) g/dL Albumin 4.0 (3.5-5.0) g/dL 07/10/19 07/10/19 07/10/19 Range/Units 12:18 12:18 12:18 WBC (3.8-10.6) k/uL RBC (3.80-5.40) m/uL Hgb (11.4-16.0) gm/dL Hct (34.0-46.0) % MCV (80.0-100.0) fL MCH (25.0-35.0) pg MCHC (31.0-37.0) g/dL RDW (11.5-15.5) % Plt Count (150-450) k/uL Neutrophils % % Lymphocytes % % Monocytes % % Eosinophils % % Basophils % % Neutrophils # (1.3-7.7) k/uL Lymphocytes # (1.0-4.8) k/uL Monocytes # (0-1.0) k/uL Eosinophils # (0-0.7) k/uL Basophils # (0-0.2) k/uL PT 11.2 (9.0-12.0) sec INR 1.1 (<1.2) APTT 27.2 (22.0-30.0) sec Sodium (137-145) mmol/L Potassium (3.5-5.1) mmol/L Chloride (98-107) mmol/L Carbon Dioxide (22-30) mmol/L Anion Gap mmol/L BUN (7-17) mg/dL Creatinine (0.52-1.04) mg/dL Est GFR (CKD-EPI)AfAm (>60 ml/min/1.73 sqM) Est GFR (CKD-EPI)NonAf (>60 ml/min/1.73 sqM) Glucose (74-99) mg/dL Plasma Lactic Acid Gary (0.7-2.0) mmol/L Calcium (8.4-10.2) mg/dL Magnesium (1.6-2.3) mg/dL Total Bilirubin (0.2-1.3) mg/dL AST (14-36) U/L ALT (4-34) U/L Alkaline Phosphatase (38-126) U/L Troponin I <0.012 (0.000-0.034) ng/mL NT-Pro-B Natriuret Pep 233 pg/mL Total Protein (6.3-8.2) g/dL Albumin (3.5-5.0) g/dL Disposition Clinical Impression: Dyspnea, Pulmonary fibrosis, Pneumonia Disposition: ADMITTED IP TO THIS HOSP Condition: Stable Is patient prescribed a controlled substance at d/c from ED?: No Referrals: Rox Parmar DO [Primary Care Provider] - 1-2 days Decision to Admit Reason: Admit from EC Decision Date: 07/10/19 Decision Time: 14:58
[2019-07-10 12:50] LABS: Basophils % (A) 0 %; Eosinophils # (A) 0.1 k/uL (0-0.7); Eosinophils % (A) 1 %; HCT 38.1 % (34.0-46.0); HGB 11.9 gm/dL (11.4-16.0); Lymphocytes # (A) 0.7 k/uL (1.0-4.8); Lymphocytes % (A) 11 %; MCH 29.2 pg (25.0-35.0); MCHC 31.2 g/dL (31.0-37.0); MCV 93.7 fL (80.0-100.0); Mean Platelet Volume 8.8; Monocytes # (A) 0.3 k/uL (0-1.0); Monocytes % (A) 5 %; Neutrophils % (A) 80 %; Platelet Count 221 k/uL (150-450); RBC 4.06 m/uL (3.80-5.40); RDW 12.8 % (11.5-15.5); WBC 6.2 k/uL (3.8-10.6)
[2019-07-10 12:59] LABS: INR 1.1 (<1.2); Partial Thromboplastin Time 27.2 sec (22.0-30.0); Prothrombin Time 11.2 sec (9.0-12.0)
[2019-07-10 13:02] LABS: Calcium 9.6 mg/dL (8.4-10.2); Magnesium 1.6 mg/dL (1.6-2.3); Potassium 3.7 mmol/L (3.5-5.1); Total Bilirubin 1.3 mg/dL (0.2-1.3); Total Protein 6.7 g/dL (6.3-8.2)
--- NOTE | 2019-07-10 13:17 | XR ---
EXAMINATION TYPE: XR chest 2V DATE OF EXAM: 07/10/2019 HISTORY: difficulty breathing. REFERENCE: Previous study dated 07/09/2019. FINDINGS: Heart is mildly enlarged. There is right basilar airspace disease. There is vascular conges tion without mauro edema. There have been multiple vertebral kyphoplasties. IMPRESSION: NO SIGNIFICANT INTERVAL CHANGE IN CHEST.
--- NOTE | 2019-07-10 14:18 | CT ---
EXAMINATION TYPE: CT angio chest DATE OF EXAM: 07/10/2019 COMPARISON: None HISTORY: Shortness of breath CT DLP: 691.6 mGycm Automated exposure control for dose reduction was used. CONTRAST: Performed with IV Contrast, patient injected with 100 mL of Isovue 370. There are 3-D post processed images. There is mild subsegmental atelectasis at the lung bases. Heart is mildly enlarged. There is no peric ardial effusion. There is mild pulmonary emphysema. There is no mediastinal adenopathy. There are no hilar masses. There is normal contrast opacification of the pulmonary arteries. There are no filling defects. There is no evidence of aortic aneurysm or dissection. There is multilevel thoracic vertebroplasty. There is multi level thoracic compression fractures. There is mild thoracic kyphosis. IMPRESSION: No evidence of pulmonary embolism. Mild interstitial infiltrates and atelectasis at the lung bases.
[2019-07-10] MEDS ORDERED: cefTRIAXone IN SWFI 1,000 MG/10 ML SYRINGE IVP STA (14:35)
[2019-07-10] MEDS ORDERED: FUROSEMIDE 10 MG/ML 2 ML VIAL IV STA (14:35)
[2019-07-10] MEDS ORDERED: AZITHROMYCIN 500 MG in SODIUM CHLORIDE 0.9% 250 ML IVPB STA (14:35)
[2019-07-10] MEDS ORDERED: IPRATROPIUM-ALBUTEROL 3 ML NEB INHALATION PRN (14:55)
[2019-07-10] MEDS: IPRATROPIUM-ALBUTEROL 3 ML NEB INHALATION SCH ×2 (16:35→19:26)
[2019-07-10] MEDS ORDERED: ACETAMINOPHEN TAB 325 MG TAB PO PRN (17:11)
[2019-07-10] MEDS: methylPREDNISolone SOD SUCCI 125 MG/2 ML VIAL IV SCH (18:41)
[2019-07-10] MEDS: NON FORMULARY DRUG (Biotin [Biotin] 10,000 MCG) PO SCH (20:29)
[2019-07-10] MEDS: FUROSEMIDE 10 MG/ML 2 ML VIAL IV SCH (20:31)
[2019-07-10] MEDS: APIXABAN 5 MG TAB PO SCH (20:31)
[2019-07-10] MEDS: LOSARTAN 25 MG TAB PO SCH (20:31)
[2019-07-10 20:45] LABS: Glucose,Whole Blood 178 mg/dL (75-99)
[2019-07-11] MEDS: methylPREDNISolone SOD SUCCI 125 MG/2 ML VIAL IV SCH ×2 (01:16→05:51)
[2019-07-11 06:54] LABS: Glucose,Whole Blood 232 mg/dL (75-99)
[2019-07-11] MEDS: IPRATROPIUM-ALBUTEROL 3 ML NEB INHALATION SCH (08:16)
[2019-07-11] MEDS ORDERED: AZITHROMYCIN 500 MG TAB PO SCH (09:00)
[2019-07-11] MEDS: PANTOPRAZOLE 40 MG TABLET PO SCH (09:02)
[2019-07-11] MEDS: APIXABAN 5 MG TAB PO SCH ×2 (09:02→21:02)
[2019-07-11] MEDS: ATORVASTATIN 40 MG TAB PO SCH (09:02)
[2019-07-11] MEDS: MONTELUKAST 10 MG TAB PO SCH (09:02)
[2019-07-11] MEDS: METOPROLOL TARTRATE 25 MG TAB PO SCH (09:02)
[2019-07-11] MEDS: LOSARTAN 25 MG TAB PO SCH ×2 (09:02→21:02)
[2019-07-11] MEDS: glipiZIDE 5 MG TAB PO SCH ×2 (09:02→16:37)
[2019-07-11] MEDS: amLODIPine 5 MG TAB PO SCH (09:02)
[2019-07-11] MEDS: OXYBUTYNIN 10 MG TAB.ER.24 PO SCH (09:02)
[2019-07-11] MEDS: FUROSEMIDE 10 MG/ML 2 ML VIAL IV SCH ×2 (09:03→21:02)
[2019-07-11] MEDS: NON FORMULARY DRUG (Biotin [Biotin] 10,000 MCG) PO SCH ×2 (09:03→18:58)
--- NOTE | 2019-07-11 10:46 | CONS ---
CONSULTATION PULMONARY/CRITICAL CARE CONSULTATION: DATE OF SERVICE: July 11, 2019 HISTORY OF PRESENT ILLNESS: This is a 78-year-old female who presents to the emergency room for evaluation for shortness of breath. She has had shortness of breath that has been progressively worse over the last couple months, but when talking to her, it is clear the shortness of breath has been going on for maybe a year or even longer. Just that in the last couple months, the shortness of breath had been much more progressive, much more noticeable to her. She apparently was recently in the emergency department. She was discharged to see her family doctor, which she saw. The family doctor apparently sent her back to the emergency room to be evaluated. In addition to shortness of breath, she does admit to a bit of cough and some phlegm production, not a lot. She denies any fever, chills. She does have some minimal chest discomfort. She denies nausea, vomiting or diarrhea. She denies any genitourinary complaints. In addition, she does have a history of atrial fibrillation for which she sees one of the cardiac physicians. Occasionally, she states she will feel palpitations or fluttering in her chest. She does not have any history of any lung disease. She did smoke remotely many years ago. She states that maybe she has smoked 2 packs of cigarettes in her entire life many years back. She has no history of COPD, chronic bronchitis, acute bronchitis, emphysema, asthma, etc. She did have a CT angiogram which did not show a pulmonary embolism. She is quite frustrated as to the fact that she cannot get any answers to why she is so short of breath. She does realize that her weight probably contributes to the problem. HOME MEDICATIONS: Include oxybutynin, glipizide, amlodipine, Januvia, biotin, [place], insulin, Losartan, Singular, Lipitor, metoprolol, Buprenorphine, and some other [id number] medications. ALLERGIES: INCLUDE TETRACYCLINES, FENTANYL, AND MORPHINE. PAST MEDICAL HISTORY: Positive for chronic atrial fibrillation, angina pectoris, diabetes mellitus, hyperlipidemia, hypertension, DJD, and pneumonia. She has had other medical problems including chronic back pain, a T8 fracture, infection after back surgery, obesity, and lower extremity edema. In addition, she has had a fractured right humerus. SURGICAL HISTORY: Includes back surgery, cholecystectomy, orthopedic procedures including right wrist carpal tunnel surgery, and kyphoplasty on T8. Other surgical procedures include repair of a fractured nose, and bilateral cataract surgery. SOCIAL HISTORY: Essentially negative for tobacco use. As I mentioned, she smoked many years ago, a total of maybe 2 packs of cigarettes in her entire 78 years. She denies any alcohol use or illicit drug use. FAMILY HISTORY: Positive for father with a history of myocardial infarction and at age 52. She had a mother who at age 89 from some sort of brain issue. REVIEW OF SYSTEMS: CONSTITUTIONAL: Negative. NEUROLOGIC anxiety. HEENT negative. CARDIOVASCULAR palpitations, rapid heartbeat, atrial fibrillation. PULMONARY: Shortness of breath particularly on exertion, more so in the last couple months, although it has been going on for at least a year or so. GI negative. negative. RHEUMATOLOGIC negative. IMMUNOLOGIC negative. ENDOCRINOLOGIC negative. DERMATOLOGIC: Negative. PHYSICAL EXAMINATION: VITAL SIGNS: Current vital signs are reviewed. Temperature is 97.8, heart rate 84 and regular, respiratory rate is 18, blood pressure 127/79, mean 95, three L saturation 97%. Appears no acute distress. HEENT examination is grossly unremarkable. Mucous membranes are moist. No oral lesions. NECK: Supple. Full range of motion. No adenopathy. Neck veins are flat. CARDIOVASCULAR examination reveals regular rhythm and rate. She is clearly in sinus rhythm. Heart rate 80 beats per minute. S1, S2 normal. No murmur. LUNGS: Reveal some bibasilar crackles. No rhonchi or wheezes. Breath sounds are equal bilaterally. She is not restricted in her breathing. No wheezes. ABDOMEN: Obese. Bowel sounds are heard. EXTREMITIES are intact. Minimal edema. No cyanosis or clubbing. SKIN: Without rash. NEUROLOGIC: Examination is nonfocal. X-RAY: Chest x-ray shows some minimal basilar airspace disease versus infiltrate. A chest CTA was done. It showed no evidence of pulmonary embolism. There are some basilar interstitial changes noted. LABORATORY DATA: Includes a white count 6.2, hemoglobin 11.9, hematocrit 38.1, platelet count 321 1000. PT/INR PTT all normal. Sodium 142, potassium 3.7, chloride 105, CO2 28, anion gap is 9. BUN and creatinine were 17 and 1.06. N-terminal proBNP 233. Troponin was less than 0.012. The rest of the labs look good. Medications are reviewed. The patient is on Tylenol, amlodipine, Eliquis, Lipitor, Zithromax, biotin, Lasix, Glucotrol, insulin, updrafts, losartan, Solu-Medrol, metoprolol, Singulair, oxybutynin, and Protonix. ASSESSMENT: 1. Shortness of breath, of unclear etiology. It could relate to some mild interstitial edema, although the N terminal proBNP was normal versus interstitial lung disease. 2. Atrial fibrillation, now in normal sinus rhythm. It does not appear that the atrial fibrillation is causing her shortness of breath. 3. History of angina. 4. Diabetes mellitus. 5. Hyperlipidemia. 6. History of hypertension. 7. History of degenerative joint disease. 8. History of pneumonia. 9. Chronic back pain with multiple kyphoplasty. 10.No prior history of any lung issues. PLAN: The patient will have a high-resolution CT scan to rule out interstitial lung disease. Some of the medications that she prescribes her are not necessary. Will be discontinued. Additional recommendations and suggestions are forthcoming. She will need pulmonary evaluation following discharge. She also should be seen by Cardiology. Additional recommendations and suggestions are forthcoming. MMODL / IJN: [id number] / LYN
[2019-07-11 11:39] LABS: Glucose,Whole Blood 358 mg/dL (75-99)
[2019-07-11] MEDS: INSULN ASP PRT/INSULIN ASPART 100 UNIT/ML 10 ML VIAL SQ SCH (11:46)
--- NOTE | 2019-07-11 14:01 | P.HPIM ---
History of Present Illness this is a pleasant 78 years old female with past medical history of atrial fibrillation, diabetes mellitus, hypertension, hyperlipidemia, as her arthritis, chronic back pain, difficulty in ambulation due to back pain, chronic peripheral leg edema . Patient presents with progressive dyspnea over one year, getting progressively worse over the last 2 months. Associated with mild cough. No chest pain. No change in her mental status. No recent upper respiratory tract infection.patient has been already evaluated by bookkeeping machine operator and ordered high- resolution CAT scan of the chest to rule out interstitial lung disease. Patient also has history of A. fib and she is on Eliquis patient is not on home oxygen. She has mild cough and she doesn't want any cough syrup vitals are stable and she saturating 97% on room air. patient is afebrile. Labs show an unremarkable CBC, INR and BMP. Sugar is 168-178. Liver enzymes not elevated. troponin is negative and proBNP is 233.Chest x-ray:no significant change per radiologist, there is vascular congestion without mauro edema. EKG showing normal sinus rhythm at [address]-T changes. CT of the chest showing no pulmonary embolism, mild atelectasis. on admission patient received 1 dose of Lasix 20 mg, Rocephin and Zithromax. Also she was started on Solu-Medrol 60 mg every 6 hours. And Lasix 20 mg IV every 12 hours Review of Systems CONSTITUTIONAL: No fever, no malaise, no fatigue. HEENT: No recent visual problems or hearing problems. Denied any sore throat. CARDIOVASCULAR: No orthopnea, PND, no palpitations, no syncope. PULMONARY:no hemoptysis. GASTROINTESTINAL: No diarrhea, no nausea, no vomiting, no abdominal pain. No rmoactive bowel sounds. NEUROLOGICAL: No headaches, no weakness, no numbness. HEMATOLOGICAL: Denies any bleeding or petechiae. GENITOURINARY: Denies any burning micturition, frequency, or urgency. MUSCULOSKELETAL/RHEUMATOLOGICAL: Denies any joint pain, swelling, or any muscle pain. ENDOCRINE: Denies any polyuria or polydipsia. Past Medical History Past Medical History: Atrial Fibrillation, Chest Pain / Angina, Diabetes Mellitus, Hyperlipidemia, Hypertension, Osteoarthritis (OA), Pneumonia Additional Past Medical History / Comment(s): Paroxysmal Afib, POST OP INFECTION AFTER BACK SURGERY, CHRONIC BACK PAIN FROM T8 FX, difficulty walking d/t back pain, CHRONIC PERIPHERAL LEG EDEMA, UTIs, R humerus fracture. History of Any Multi-Drug Resistant Organisms: None Reported Past Surgical History: Back Surgery, Cholecystectomy, Orthopedic Surgery Additional Past Surgical History / Comment(s): 2015 LUMBAR SURGERY, FX NOSE REPAIR, BILATERAL CATARACT SURGERY, R WRIST CARPAL TUNNEL SURGERY, kyphoplasty T8 ON 06/26/16 AND ONE BEFORE. Past Anesthesia/Blood Transfusion Reactions: No Reported Reaction Additional Past Anesthesia/Blood Transfusion Reaction / Comment(s): NEVER HAD A BLOOD TRANSFUSION. Past Psychological History: No Psychological Hx Reported Additional Psychological History / Comment(s): PT LIVES ALONE IN A [place]. SHE IS INDEPENDENT. SHE DRIVES A CAR. Smoking Status: Never smoker Past Alcohol Use History: None Reported Past Drug Use History: None Reported - Past Family History Father Family Medical History: Myocardial Infarction ([place]) Additional Family Medical History / Comment(s): FATHER AT AGE 52 OF AN [place] Mother Additional Family Medical History / Comment(s): MOTHER AT AGE 89 OF CELEBREX PROBLEM. Medications and Allergies Home Medications Medication Instructions Recorded Confirmed Type Oxybutynin Chloride [Oxybutynin 10 mg PO DAILY 12/04/17 07/10/19 History Chloride ER] glipiZIDE XL [Glucotrol XL] 5 mg PO DAILY 12/04/17 07/10/19 History Apixaban [Eliquis] 5 mg PO BID 04/09/18 07/10/19 History amLODIPine [Norvasc] 5 mg PO DAILY 04/09/18 07/10/19 History sitaGLIPtin [Januvia] 100 mg PO DAILY 04/09/18 07/10/19 History Biotin 10,000 mcg PO BID 03/28/19 07/10/19 History Furosemide [Lasix] 40 mg PO DAILY 03/28/19 07/10/19 History Insuln Asp Prt/Insulin Aspart 20 unit SQ DAILY 03/28/19 07/10/19 History [NovoLOG MIX 70-30 VIAL] Losartan Potassium [Cozaar] 25 mg PO BID 03/28/19 07/10/19 History Montelukast [Singulair] 10 mg PO DAILY 03/28/19 07/10/19 History Atorvastatin [Lipitor] 40 mg PO DAILY 04/09/19 07/10/19 History Metoprolol Tartrate [Lopressor] 25 mg PO QAM 04/09/19 07/10/19 History Buprenorphine [Buprenorphine 1 patch TRANSDERM MO 07/09/19 07/10/19 History 10MCG/HR] Omeprazole 40 mg PO DAILY 07/10/19 07/10/19 History Allergies Allergy/AdvReac Type Severity Reaction Status Date / Time tetracycline Allergy Unknown Verified 07/10/19 15:02 fentanyl AdvReac "IN Verified 07/10/19 15:02 ANOTHER PLANET, DIDNT KNOW WHERE SHE WAS" morphine AdvReac Nausea & Verified 07/10/19 15:02 Vomiting Physical Exam Vitals: Vital Signs Temp Pulse Pulse Resp BP BP Pulse Ox 07/10/19 16:33 97.5 F L 76 18 128/75 97 07/10/19 16:05 98.0 F 81 18 155/60 98 07/10/19 15:07 71 18 155/63 97 07/10/19 14:03 80 18 141/94 100 07/10/19 12:23 18 97 07/10/19 11:46 97.8 F 77 22 150/78 93 L Intake and Output 07/10/19 07/10/19 07/10/19 06:59 14:59 22:59 Other: Weight 122.379 kg 122.379 kg GENERAL: The patient is alert and oriented x3, not in any acute distress. Well developed, well nourished. HEENT: Pupils are round and equally reacting to light. EOMI. No scleral icterus. No conjunctival pallor. Normocephalic, atraumatic. No pharyngeal erythema. No thyromegaly. CARDIOVASCULAR: S1 and S2 present. No murmurs, rubs, or gallops. PULMONARY: Chest is clear to auscultation, no wheezing or crackles. ABDOMEN: Soft, nontender, nondistended, normoactive bowel sounds. No palpable organomegaly. MUSCULOSKELETAL: No joint swelling or deformity. EXTREMITIES: No cyanosis, clubbing, or pedal edema. NEUROLOGICAL: Gross neurological examination did not reveal any focal deficits. SKIN: No rashes. No petechiae Results CBC & Chem 7: 07/10/19 12:18 07/10/19 12:18 Labs: Abnormal Lab Results - Last 24 Hours (Table) 07/10/19 07/10/19 Range/Units 12:18 12:18 Lymphocytes # 0.7 L (1.0-4.8) k/uL Creatinine 1.06 H (0.52-1.04) mg/dL Glucose 168 H (74-99) mg/dL Alkaline Phosphatase 157 H (38-126) U/L Thrombosis Risk Factor Assmnt - Choose All That Apply Any of the Below Risk Factors Present?: Yes Each Factor Represents 1 point: Obesity (BMI >25) Other Risk Factors: Yes Each Risk Factor Represents 3 Points: Age 75 years or older Thrombosis Risk Factor Assessment Total Risk Factor Score: 4 Thrombosis Risk Factor Assessment Level: Moderate Risk Assessment and Plan Assessment: Shortness of breath, of unclear etiology Sinus bradycardia, possibly medication induced Paroxysmal atrial fibrillationon Eliquis chronic diastolic dysfunction, ejection fraction 55-60% Renal failure possibly secondary to acute on chronic with acute tubular necrosis prerenal acute renal failure Chronic kidney stage III baseline History of diabetes mellitus type 2 Hypertension Hyperlipidemia History of degenerative joint disease History of pneumonia History of back surgery History of cholecystectomy Obesity with body mass index of 49.6 Plan: this is a pleasant 78 years old female who presents with progressive dyspnea over several months. Pulmonary team are following the case and the recommend in CAT scan of the chest to rule out interstitial lung disease.she already had CTA of the chest rule out PE, and the second catheter scan is without contrast Labs and medication were reviewed.. Continue same treatment. Continue with symptomatic treatment. Resume home medication. Monitor lytes and vitals. DVT and GI prophylaxis. Further recommendations of the clinical course of the patient DVT prophylaxis: Eliquis GI Prophylaxis: Pepcid
[2019-07-11] MEDS: FAMOTIDINE 20 MG TAB PO SCH (16:37)
[2019-07-11 16:49] LABS: Glucose,Whole Blood 290 mg/dL (75-99)
[2019-07-11 20:02] LABS: Glucose,Whole Blood 317 mg/dL (75-99)
[2019-07-11] MEDS ORDERED: FAMOTIDINE 20 MG/2 ML VIAL IV SCH (21:00)
[2019-07-11] MEDS: INSULIN ASPART (NovoLOG) 100 UNIT/ML VIAL SQ SCH (21:03)
[2019-07-12 07:10] LABS: Glucose,Whole Blood 218 mg/dL (75-99)
[2019-07-12] MEDS: INSULIN ASPART (NovoLOG) 100 UNIT/ML VIAL SQ SCH ×4 (07:26→22:16)
[2019-07-12] MEDS: glipiZIDE 5 MG TAB PO SCH ×2 (08:06→17:13)
[2019-07-12] MEDS: INSULN ASP PRT/INSULIN ASPART 100 UNIT/ML 10 ML VIAL SQ SCH (08:06)
[2019-07-12] MEDS: MONTELUKAST 10 MG TAB PO SCH (08:07)
[2019-07-12] MEDS: OXYBUTYNIN 10 MG TAB.ER.24 PO SCH (08:07)
[2019-07-12] MEDS: APIXABAN 5 MG TAB PO SCH ×2 (08:07→21:59)
[2019-07-12] MEDS: METOPROLOL TARTRATE 25 MG TAB PO SCH (08:07)
[2019-07-12] MEDS: ATORVASTATIN 40 MG TAB PO SCH (08:07)
[2019-07-12] MEDS: PANTOPRAZOLE 40 MG TABLET PO SCH (08:07)
[2019-07-12] MEDS: amLODIPine 5 MG TAB PO SCH (08:07)
[2019-07-12] MEDS: FUROSEMIDE 10 MG/ML 2 ML VIAL IV SCH ×2 (08:07→21:58)
[2019-07-12] MEDS: FAMOTIDINE 20 MG TAB PO SCH (08:07)
[2019-07-12] MEDS: LOSARTAN 25 MG TAB PO SCH ×2 (08:07→21:59)
[2019-07-12] MEDS: NON FORMULARY DRUG (Biotin [Biotin] 10,000 MCG) PO SCH ×2 (08:08→21:07)
[2019-07-12] MEDS ORDERED: BUPRENORPHINE TOPICAL SCH (09:00)
[2019-07-12 11:37] LABS: Glucose,Whole Blood 138 mg/dL (75-99)
[2019-07-12] MEDS ORDERED: IPRATROPIUM-ALBUTEROL 3 ML NEB INHALATION PRN (12:56)
--- NOTE | 2019-07-12 12:59 | P.PN ---
Subjective Progress Note Date: 07/12/19 78-year-old female patient came in for shortness of breath seen in consultation yesterday. Her shortness of breath is been going on for at least a year. She came into the ED and she was having some limited cough. No fever or chills. She has no history of smoking. She did smoke remotely many years back. Mostly of any emphysema or asthma. CT angiogram showed no evidence of any pulmonary embolism. EKG was in normal sinus rhythm. She is afebrile. Pulse ox on room air is around 95%. The blood work has been essentially within normal limits she has history of proximal atrial fibrillation and the patient has been maintained on Eliquis. On examination, the patient is actively bronchospastic and wheezy. She has prolongation of the exhalation phase of breathing. I think there is a component of COPD with an acute exacerbation contributing to her shortness of breath. The echocardiogram from March 2019 was within normal limits. EF was around 55-60%. Objective - Vital Signs Vital signs: Vital Signs Temp 97.7 F 07/12/19 07:26 Pulse 76 07/12/19 07:26 Resp 18 07/12/19 07:26 BP 133/59 07/12/19 07:26 Pulse Ox 95 07/12/19 07:26 Intake & Output 07/11/19 07/12/19 07/12/19 18:59 06:59 18:59 Intake Total 458 Balance 458 Intake: Oral 458 Other: Voiding Method Toilet Toilet # Voids 3 1 1 - Exam The patient appeared well nourished and normally developed. obese, comfortable likely distress.Vital signs as documented. Head exam is unremarkable. No scleral icterus or corneal arcus noted. Neck is without jugular venous distension, thyromegaly, or carotid bruits. Carotid upstrokes are brisk bilaterally.diminished breath sounds along with prolongation of the exhalation phase of breathing and diffuse expiratory wheezes throughout the lung nova bilaterally.. Cardiac exam reveals the PMI to be normally sized and situated. Rh ythm is regular. First and second heart sounds normal. No murmurs, rubs or gallops. Abdominal exam reveals normal bowel sounds, no masses, no organomegaly and no aortic enlargement. Extremities are nonedematous and both femoral and pedal pulses are normal. - Labs CBC & Chem 7: 07/10/19 12:18 07/10/19 12:18 Labs: Abnormal Lab Results - Last 24 Hours (Table) 07/11/19 07/11/19 07/12/19 Range/Units 16:47 20:00 07:09 POC Glucose (mg/dL) 290 H 317 H 218 H (75-99) mg/dL 07/12/19 Range/Units 11:35 POC Glucose (mg/dL) 138 H (75-99) mg/dL Microbiology - Last 24 Hours (Table) 07/10/19 12:18 Blood Culture - Preliminary Blood No Growth after 24 hours Assessment and Plan Plan: 1 acute COPD exacerbation. The patient is a remote ex-smoker. Nevertheless she has had extensive secondhand smoking history. Currently she is actively bronchospastic and wheezy and this was probably exacerbated by an underlying bronchitis. She has a congested cough, unable to bring up much sputum. 2 diabetes mellitus, insulin-dependent 3 obesity with a BMI of 51 4 shortness of breath secondary to above 5 paroxysmal atrial fibrillation currently in normal sinus rhythm and the patient is on long-term anticoagulation at a [facility] 6 hyperlipidemia 7 hypertension 8 osteoarthritis 9 chronic back pain with previous history of kyphoplasty Plan Start the patient on DuoNeb nebulized treatments around the clock IV Solu-Medrol Pulmicort Respules Consider bronchoscopy if no improvement within next 24-48 hours for airway inspection, critically care was suctioning Repeat echocardiogram was done with results
[2019-07-12 14:14] LABS: Hemoglobin A1C 5.4 % (4.0-6.0)
[2019-07-12] MEDS: IPRATROPIUM-ALBUTEROL 3 ML NEB INHALATION SCH ×2 (15:58→20:34)
[2019-07-12 17:05] LABS: Glucose,Whole Blood 206 mg/dL (75-99)
[2019-07-12] MEDS: methylPREDNISolone SOD SUCCI 40 MG/ML 1 ML VIAL IV SCH (17:13)
--- NOTE | 2019-07-12 19:00 | ECHOF ---
Referral Reason:dyspnea MEASUREMENTS -------- HEIGHT: 154.9 cm WEIGHT: 122.0 kg BP: 99/58 RVIDd: 2.6 cm (< 3.3) IVSd: 1.4 cm (0.6 - 1.1) LVIDd: 2.8 cm (3.9 - 5.3) LVPWd: 1.4 cm (0.6 - 1.1) IVSs: 1.7 cm LVIDs: 1.7 cm LVPWs: 1.5 cm LAESV Index (A-L): 22.77 ml/m Ao Diam: 2.8 cm (2.0 - 3.7) AV Cusp: 1.5 cm (1.5 - 2.6) LA Diam: 3.6 cm (2.7 - 3.8) MV EXCURSION: 13.189 mm (> 18.000) MV EF SLOPE: 84 mm/s (70 - 150) EPSS: 0.7 cm MV E Wolf: 1.19 m/s MV DecT: 253 ms MV A Wolf: 0.45 m/s MV E/A Ratio: 2.66 RAP: 5.00 mmHg RVSP: 42.14 mmHg TAPSE: 29.50 mm FINDINGS -------- Sinus rhythm. This was a technically adequate study. The left ventricular size is normal. There is moderate concentric left ventricular hypertrophy. O verall left ventricular systolic function is normal with, an EF between 55 - 60 %. The right ventricle is normal in size. The right ventricular systolic function is normal. The left atrial size is normal. Normal LA size by volume 22+/-6 ml/m2. The right atrial size is normal. Aortic valve is trileaflet and is mildly thickened. The mitral valve is normal. The mitral valve leaflets are mildly thickened. Moderate mitral regur gitation is present. The tricuspid valve appears structurally normal. [id number]-ikarqcnk tricuspid regurgitation present. Right ventricular systolic pressure is normal at < 35 mmHg. There is mild pulmonary hypertension. There is no pulmonic regurgitation present. The aortic root size is normal. Normal inferior vena cava with normal inspiratory collapse consistent with estimated right atrial pre ssure of 5 mmHg. There is a trivial pericardial effusion present. CONCLUSIONS -------- 1. Sinus rhythm. 2. This was a technically adequate study. 3. The left ventricular size is normal. 4. There is moderate concentric left ventricular hypertrophy. 5. Overall left ventricular systolic function is normal with, an EF between 55 - 60 %. 6. The right ventricle is normal in size. 7. The right ventricular systolic function is normal. 8. The left atrial size is normal. 9. Normal LA size by volume 22+/-6 ml/m2. 10. The right atrial size is normal. 11. Aortic valve is trileaflet and is mildly thickened. 12. The mitral valve is normal. 13. The mitral valve leaflets are mildly thickened. 14. Moderate mitral regurgitation is present. 15. The tricuspid valve appears structurally normal. 16. Bbdn-pb-awjjvtxq tricuspid regurgitation present. 17. Right ventricular systolic pressure is normal at < 35 mmHg. 18. There is mild pulmonary hypertension. 19. There is no pulmonic regurgitation present. 20. The aortic root size is normal. 21. Normal inferior vena cava with normal inspiratory collapse consistent with estimated right atrial pressure of 5 mmHg. 22. There is a trivial pericardial effusion present. ADOLESCENT COUNSELOR: Adrianne Soares RDCS
[2019-07-12] MEDS: FORMOTEROL FUMARATE 20 MCG/2 ML NEBU INHALATION SCH (20:34)
[2019-07-12] MEDS: BUDESONIDE 1 MG/2 ML NEBU INHALATION SCH (20:34)
[2019-07-12 21:01] LABS: Glucose,Whole Blood 207 mg/dL (75-99)
[2019-07-13] MEDS: methylPREDNISolone SOD SUCCI 40 MG/ML 1 ML VIAL IV SCH ×5 (00:25→23:54)
--- NOTE | 2019-07-13 06:53 | P.PN ---
Subjective Progress Note Date: 07/12/19 Principal diagnosis: this is a pleasant 78 years old female with past medical history of atrial fibrillation, diabetes mellitus, hypertension, hyperlipidemia, as her arthritis, chronic back pain, difficulty in ambulation due to back pain, chronic peripheral leg edema . Patient presents with progressive dyspnea over one year, getting progressively worse over the last 2 months. Associated with mild cough. No chest pain. No change in her mental status. No recent upper respiratory tract infection.patient has been already evaluated by construction cost estimator and ordered high-resolution CAT scan of the chest to rule out interstitial lung disease. Patient also has history of A. fib and she is on Eliquis patient is not on home oxygen. She has mild cough and she doesn't want any co ugh syrup vitals are stable and she saturating 97% on room air. patient is afebrile. Labs show an unremarkable CBC, INR and BMP. Sugar is 168-178. Liver enzymes not elevated. troponin is negative and proBNP is 233.Chest x-ray:no significant change per radiologist, there is vascular congestion without mauro edema. EKG showing normal sinus rhythm at [address]-T changes. CT of the chest showing no pulmonary embolism, mild atelectasis. on admission patient received 1 dose of Lasix 20 mg, Rocephin and Zithromax. Also she was started on Solu-Medrol 60 mg every 6 hours. And Lasix 20 mg IV every 12 hours 07/12/2019 Patient is sitting up in bed eating lunch and appears to be in no acute distress. Patient states that her breathing is a little better. Patient has been diuresing well with the IV lasix and will continue at this time. Pulmonary is following. Patient remains on bronchodilators, IV steroids, and IV lasix and will continue at this time. Patient is intermittently on 02 via NC and does not normally wear home 02. Blood sugars have been slightly elevated and being covered with her home insulin along with sliding scale. Objective - Vital Signs Vital signs: Vital Signs Temp 97.5 F L 07/12/19 14:53 Pulse 61 07/12/19 16:06 Resp 16 07/12/19 16:06 BP 96/57 07/12/19 14:53 Pulse Ox 94 L 07/12/19 15:58 Intake & Output 07/12/19 07/12/19 07/13/19 06:59 18:59 06:59 Other: Voiding Method Toilet Toilet # Voids 1 1 - Exam GENERAL: The patient is alert and oriented x3, not in any acute distress. Well developed, well nourished. Temp is 97.5F, pulse is 63, resp are 17, blood pressure is 96/57, and 02 is 96% on room air. HEENT: Pupils are round and equally reacting to light. EOMI. No scleral icterus. No conjunctival pallor. Normocephalic, atraumatic. No pharyngeal erythema. No thyromegaly. CARDIOVASCULAR: S1 and S2 present. No murmurs, rubs, or gallops. PULMONARY: Diminished breath sounds bilaterally with some expiratory wheezing noted on exam ABDOMEN: Soft, nontender, nondistended, normoactive bowel sounds. No palpable organomegaly. MUSCULOSKELETAL: No joint swelling or deformity. EXTREMITIES: No cyanosis, clubbing, or pedal edema. NEUROLOGICAL: Gross neurological examination did not reveal any focal deficits. SKIN: No rashes. No petechiae - Labs CBC & Chem 7: 07/10/19 12:18 07/10/19 12:18 Labs: Abnormal Lab Results - Last 24 Hours (Table) 07/11/19 07/12/19 07/12/19 Range/Units 20:00 07:09 11:35 POC Glucose (mg/dL) 317 H 218 H 138 H (75-99) mg/dL 07/12/19 Range/Units 17:02 POC Glucose (mg/dL) 206 H (75-99) mg/dL Microbiology - Last 24 Hours (Table) 07/10/19 12:18 Blood Culture - Preliminary Blood No Growth after 48 hours Assessment and Plan Assessment: Shortness of breath, of unclear etiology Sinus bradycardia, possibly medication induced Paroxysmal atrial fibrillationon: on Eliquis chronic diastolic dysfunction, ejection fraction 55-60% Renal failure possibly secondary to acute on chronic with acute tubular necrosis prerenal acute renal failure Chronic kidney stage III baseline History of diabetes mellitus type 2 Hypertension Hyperlipidemia History of degenerative joint disease History of pneumonia History of back surgery History of cholecystectomy Obesity with body mass index of 49.6 DVT prophylaxis: Eliquis GI prophylaxis: Pepcid Plan: Recommend to continue current medications, management, and symptomatic treatment. Continue bronchodilators, IV steroids, and IV lasix at this time. Repeat echo today showed overall LV systolic function is normal with an EF of 55-60%. Will continue to monitor labs and vital signs closely. Due to multiple complex medical issues, prognosis is guarded. Further recommendations to follow.
[2019-07-13 07:01] LABS: Glucose,Whole Blood 295 mg/dL (75-99)
[2019-07-13] MEDS: NON FORMULARY DRUG (Biotin [Biotin] 10,000 MCG) PO SCH ×2 (07:31→20:14)
[2019-07-13] MEDS: ATORVASTATIN 40 MG TAB PO SCH (07:32)
[2019-07-13] MEDS: APIXABAN 5 MG TAB PO SCH ×2 (07:34→20:14)
[2019-07-13] MEDS: amLODIPine 5 MG TAB PO SCH (07:34)
[2019-07-13] MEDS: OXYBUTYNIN 10 MG TAB.ER.24 PO SCH (07:34)
[2019-07-13] MEDS: METOPROLOL TARTRATE 25 MG TAB PO SCH (07:34)
[2019-07-13] MEDS: LOSARTAN 25 MG TAB PO SCH ×2 (07:34→20:14)
[2019-07-13] MEDS: glipiZIDE 5 MG TAB PO SCH ×2 (07:34→17:19)
[2019-07-13] MEDS: PANTOPRAZOLE 40 MG TABLET PO SCH (07:34)
[2019-07-13] MEDS: FUROSEMIDE 10 MG/ML 2 ML VIAL IV SCH ×2 (07:34→20:14)
[2019-07-13] MEDS: MONTELUKAST 10 MG TAB PO SCH (07:35)
[2019-07-13] MEDS: INSULN ASP PRT/INSULIN ASPART 100 UNIT/ML 10 ML VIAL SQ SCH (07:35)
[2019-07-13] MEDS: INSULIN ASPART (NovoLOG) 100 UNIT/ML VIAL SQ SCH ×5 (07:35→20:14)
[2019-07-13] MEDS: IPRATROPIUM-ALBUTEROL 3 ML NEB INHALATION SCH ×4 (07:50→19:00)
[2019-07-13] MEDS: FORMOTEROL FUMARATE 20 MCG/2 ML NEBU INHALATION SCH ×2 (07:50→19:00)
[2019-07-13] MEDS: BUDESONIDE 1 MG/2 ML NEBU INHALATION SCH ×2 (07:50→19:00)
--- NOTE | 2019-07-13 11:20 | P.PN ---
Subjective Progress Note Date: 07/13/19 Principal diagnosis: Acute exacerbation of chronic obstructive pulmonary disease The patient is seen today 07/13/2019 in follow-up on the regular medical floor. She is awake and alert in no acute distress. Her breathing is nearly back to her baseline. Some dyspnea on minimal exertion. She is maintaining O2 saturations in the mid 90s on room air now.no cough or congestion. No wheezing. Blood cultures reveal no growth. She is continued on IV Solu-Medrol, DuoNeb inhalations, Pulmicort and Perforomist inhalations, Singulair. She also remains on IV diuretics. Objective - Vital Signs Vital signs: Vital Signs Temp 97.9 F 07/13/19 07:29 Pulse 78 07/13/19 08:13 Resp 18 07/13/19 08:13 BP 147/57 07/13/19 07:29 Pulse Ox 91 L 07/13/19 08:40 Intake & Output 07/12/19 07/13/19 07/13/19 18:59 06:59 18:59 Intake Total 1380 Balance 1380 Intake: Oral 1380 Other: Voiding Method Toilet # Voids 1 3 - Exam GENERAL EXAM: Alert, active, comfortable in no apparent distress. On room air. HEAD: Normocephalic. EYES: Normal reaction of pupils, equal size. NOSE: Clear with pink turbinates. THROAT: No erythema or exudates. NECK: No masses, no JVD. CHEST: No chest wall deformity. LUNGS: Equal air entry with faint end expiratory wheeze. CVS: S1 and S2 normal with no audible murmur, regular rhythm. ABDOMEN: No hepatosplenomegaly, normal bowel sounds, no guarding or rigidity. SPINE: No scoliosis or deformity SKIN: No rashes CENTRAL NERVOUS SYSTEM: No focal deficits, tone is normal in all 4 extremities. EXTREMITIES: There is no peripheral edema. No clubbing, no cyanosis. Peripheral pulses are intact. - Labs CBC & Chem 7: 07/10/19 12:18 07/10/19 12:18 Labs: Abnormal Lab Results - Last 24 Hours (Table) 07/12/19 07/12/19 07/12/19 Range/Units 11:35 17:02 20:59 POC Glucose (mg/dL) 138 H 206 H 207 H (75-99) mg/dL 07/13/19 Range/Units 06:59 POC Glucose (mg/dL) 295 H (75-99) mg/dL Microbiology - Last 24 Hours (Table) 07/10/19 12:18 Blood Culture - Preliminary Blood No Growth after 48 hours Assessment and Plan Assessment: 1 acute COPD exacerbation. The patient is a remote ex-smoker. Nevertheless she has had extensive secondhand smoking history. 2 diabetes mellitus, insulin-dependent 3 obesity with a BMI of 51 4 shortness of breath secondary to above 5 paroxysmal atrial fibrillation currently in normal sinus rhythm and the patient is on long-term anticoagulation 6 hyperlipidemia 7 hypertension 8 osteoarthritis 9 chronic back pain with previous history of kyphoplasty Plan The patient is improved today compared to yesterday. Maintaining O2 saturations in the mid 90s on room air. Less bronchospastic and wheezy. Less coughing. She's been continued on DuoNeb inhalations, Pulmicort and Perforomist inhalati ons, IV Solu-Medrol. She isbe discharged home later today or in the a.m. She will follow-up in our office in 1-2 weeks' time. We'll perform full pulmonary function testing to evaluate the severity of her suspected COPD. She is encouraged to call sooner with any recurrence of symptoms or other questions or concerns. I, the cosigning physician, performed a history & physical examination of the patient. Lungs sounds with faint end expiratory wheeze. Maintaining good O2 saturations in the 90s on room air. I discussed the assessment and plan of care with my nurse practitioner, Rachelle Monae. I attest to the above note as dictated by her.
[2019-07-13 11:36] LABS: Glucose,Whole Blood 297 mg/dL (75-99)
[2019-07-13 16:51] LABS: Glucose,Whole Blood 410 mg/dL (75-99)
[2019-07-13 20:01] LABS: Glucose,Whole Blood 393 mg/dL (75-99)
--- NOTE | 2019-07-13 23:48 | P.PN ---
Subjective Progress Note Date: 07/13/19 Principal diagnosis: acute COPD exacerbation this is a pleasant 78 years old female with past medical history of atrial fibrillation, diabetes mellitus, hypertension, hyperlipidemia, as her arthritis, chronic back pain, difficulty in ambulation due to back pain, chronic peripheral leg edema . Patient presents with progressive dyspnea over one year, getting progressively worse over the last 2 months. Associated with mild cough. No chest pain. No change in her mental status. No recent upper respiratory tract infection.patient has been already evaluated by project inspector and ordered high- resolution CAT scan of the chest to rule out interstitial lung disease. Patient also has history of A. fib and she is on Eliquis patient is not on home oxygen. She has mild cough and she doesn't want any cough syrup vitals are stable and she saturating 97% on room air. patient is afebrile. Labs show an unremarkable CBC, INR and BMP. Sugar is 168-178. Liver enzymes not elevated. troponin is negative and proBNP is 233.Chest x-ray:no significant change per radiologist, there is vascular congestion without mauro edema. EKG showing normal sinus rhythm at [address]-T changes. CT of the chest showing no pulmonary embolism, mild atelectasis. on admission patient received 1 dose of Lasix 20 mg, Rocephin and Zithromax. Also she was started on Solu-Medrol 60 mg every 6 hours. And Lasix 20 mg IV every 12 hours 07/12/2019 Patient is sitting up in bed eating lunch and appears to be in no acute distress. Patient states that her breathing is a little better. Patient has been diuresing well with the IV lasix and will continue at this time. Pulmonary is following. Patient remains on bronchodilators, IV steroids, and IV lasix and will continue at this time. Patient is intermittently on 02 via NC and does not normally wear home 02. Blood sugars have been slightly elevated and being covered with her home insulin along with sliding scale. 07/13/2019 Patient is awake alert and oriented 3. Breathing status is much improved. Patient is being weaned off from oxygen from nasal cannula to room air. otherwise patient is hyperglycemic IV steroids. Lasix will be changed to by mouth. No complaints of chest pain. Shortness of breath is improviingf. No nausea vomiting or abdominal pain. Patient is able to ambulate in the hallway today. Pulmonary is following. Cultures have been negative so far Anticipate discharge in the next 24 hours. current medications reviewed. Objective - Vital Signs Vital signs: Vital Signs Temp 98.4 F 07/13/19 15:00 Pulse 70 07/13/19 15:14 Resp 17 07/13/19 15:00 BP 140/74 07/13/19 15:00 Pulse Ox 97 07/13/19 15:01 Intake & Output 07/12/19 07/13/19 07/13/19 18:59 06:59 18:59 Intake Total 1380 Balance 1380 Intake: Oral 1380 Other: Voiding Method Toilet # Voids 1 3 1 - Exam GENERAL: The patient is alert and oriented x3, not in any acute distress. Well developed, well nourished. HEENT: Pupils are round and equally reacting to light. EOMI. No scleral icterus. No conjunctival pallor. Normocephalic, atraumatic. No pharyngeal erythema. No thyromegaly. CARDIOVASCULAR: S1 and S2 present. No murmurs, rubs, or gallops. PULMONARY: bilateral air entry improved. No rhonchi or crackles. Mild expiratory wheeze. ABDOMEN: Soft, nontender, nondistended, normoactive bowel sounds. No palpable organomegaly. MUSCULOSKELETAL: No joint swelling or deformity. EXTREMITIES: No cyanosis, clubbing, or pedal edema. NEUROLOGICAL: Gross neurological examination did not reveal any focal deficits. SKIN: No rashes. No petechiae - Labs CBC & Chem 7: 07/10/19 12:18 07/10/19 12:18 Labs: Abnormal Lab Results - Last 24 Hours (Table) 07/12/19 07/13/19 07/13/19 Range/Units 20:59 06:59 11:35 POC Glucose (mg/dL) 207 H 295 H 297 H (75-99) mg/dL 07/13/19 Range/Units 16:50 POC Glucose (mg/dL) 410 H (75-99) mg/dL Microbiology - Last 24 Hours (Table) 07/10/19 12:18 Blood Culture - Preliminary Blood No Growth after 72 hours Assessment and Plan Assessment: Shortness of breath secondary to acute COPD exacerbation Sinus bradycardia, possibly medication induced. Improved now Paroxysmal atrial fibrillationon: on Eliquis chronic diastolic dysfunction, ejection fraction 55-60% Renal failure possibly secondary to acute on chronic with acute tubular necrosis prerenal acute renal failure Chronic kidney stage III baseline hyperglycemia with uncontrolleddiabetes type 2 secondary to steroids. History of diabetes mellitus type 2 Hypertension Hyperlipidemia History of degenerative joint disease History of pneumonia History of back surgery History of cholecystectomy Obesity with body mass index of 49.6 DVT prophylaxis: Eliquis GI prophylaxis: Pepcid Plan: Recommend to continue current medications, management, and symptomatic treatment. Continue bronchodilators, IV steroids, and IV lasix at this time. Repeat echo showed overall LV systolic function is normal with an EF of 55-60%. Will continue to monitor labs and vital signs closely. Due to multiple complex medical issues, prognosis is guarded. Further recommendations to follow. Time with Patient: Greater than 30
[2019-07-14 06:54] LABS: Glucose,Whole Blood 388 mg/dL (75-99)
[2019-07-14] MEDS: IPRATROPIUM-ALBUTEROL 3 ML NEB INHALATION SCH ×2 (07:27→11:01)
[2019-07-14] MEDS: FORMOTEROL FUMARATE 20 MCG/2 ML NEBU INHALATION SCH (07:27)
[2019-07-14] MEDS: BUDESONIDE 1 MG/2 ML NEBU INHALATION SCH (07:27)
[2019-07-14 07:47] VITALS: BP 130/70; RESP 14; TEMP 98.7
[2019-07-14 08:00] LABS: Basophils % (A) 0 %; Eosinophils % (A) 0 %; HCT 36.4 % (34.0-46.0); HGB 11.8 gm/dL (11.4-16.0); Lymphocytes # (A) 0.4 k/uL (1.0-4.8); Lymphocytes % (A) 3 %; MCH 31.2 pg (25.0-35.0); MCHC 32.3 g/dL (31.0-37.0); MCV 96.5 fL (80.0-100.0); Mean Platelet Volume 9.3; Monocytes # (A) 0.5 k/uL (0-1.0); Monocytes % (A) 4 %; Neutrophils # (A) 10.3 k/uL (1.3-7.7); Neutrophils % (A) 92 %; Platelet Count 234 k/uL (150-450); RBC 3.77 m/uL (3.80-5.40); RDW 12.7 % (11.5-15.5); WBC 11.3 k/uL (3.8-10.6)
[2019-07-14 08:07] LABS: Calcium 9.5 mg/dL (8.4-10.2); Potassium 4.6 mmol/L (3.5-5.1)
[2019-07-14] MEDS: INSULIN ASPART (NovoLOG) 100 UNIT/ML VIAL SQ SCH ×4 (08:52→12:33)
[2019-07-14] MEDS: methylPREDNISolone SOD SUCCI 40 MG/ML 1 ML VIAL IV SCH (08:52)
[2019-07-14] MEDS: INSULN ASP PRT/INSULIN ASPART 100 UNIT/ML 10 ML VIAL SQ SCH (08:52)
[2019-07-14] MEDS: METOPROLOL TARTRATE 25 MG TAB PO SCH (08:53)
[2019-07-14] MEDS: ATORVASTATIN 40 MG TAB PO SCH (08:53)
[2019-07-14] MEDS: LOSARTAN 25 MG TAB PO SCH (08:53)
[2019-07-14] MEDS: PANTOPRAZOLE 40 MG TABLET PO SCH (08:53)
[2019-07-14] MEDS: APIXABAN 5 MG TAB PO SCH (08:53)
[2019-07-14] MEDS: OXYBUTYNIN 10 MG TAB.ER.24 PO SCH (08:53)
[2019-07-14] MEDS: glipiZIDE 5 MG TAB PO SCH (08:53)
[2019-07-14] MEDS: MONTELUKAST 10 MG TAB PO SCH (08:53)
[2019-07-14] MEDS: amLODIPine 5 MG TAB PO SCH (08:53)
[2019-07-14] MEDS ORDERED: FUROSEMIDE 20 MG TAB PO SCH (09:00)
[2019-07-14] MEDS: NON FORMULARY DRUG (Biotin [Biotin] 10,000 MCG) PO SCH (10:31)
--- NOTE | 2019-07-14 10:57 | P.PN ---
Subjective Progress Note Date: 07/14/19 On 07/14/2019 the patient continues to improve. She is less short of breath. I decided to keep her in the hospital for another 24 hours yesterday to give her the opportunity for another day of IV Solu-Medrol. She is less short of breath. I'm going to arrange a home nebulizer for this patient. She may also need to go home on a prednisone burst taper. No chest pain. No palpitation. No other side effects of treatment. Objective - Vital Signs Vital signs: Vital Signs Temp 98.7 F 07/14/19 07:00 Pulse 80 07/14/19 07:54 Resp 14 07/14/19 07:00 BP 130/70 07/14/19 07:00 Pulse Ox 95 07/14/19 07:00 Intake & Output 07/13/19 07/14/19 07/14/19 18:59 06:59 18:59 Intake Total 560 298 Balance 560 298 Weight 120.8 kg Intake: Oral 560 298 Other: Voiding Method Toilet # Voids 1 1 - Exam The patient appeared well nourished and normally developed. obese, comfortable likely distress.Vital signs as documented. Head exam is unremarkable. No scleral icterus or corneal arcus noted. Neck is without jugular venous distension, thyromegaly, or carotid bruits. Carotid upstrokes are brisk bilaterally.diminished breath sounds and she has improved significantly without any significant. Cardiac exam reveals the PMI to be normally sized and situated. Rhythm is regular. First and second heart sounds normal. No murmurs, rubs or gallops. Abdominal exam reveals normal bowel sounds, no masses, no organomegaly and no aortic enlargement. Extremities are nonedematous and both femoral and pedal pulses are normal. - Labs CBC & Chem 7: 07/14/19 07:34 07/14/19 07:34 Labs: Abnormal Lab Results - Last 24 Hours (Table) 07/13/19 07/13/19 07/13/19 Range/Units 11:35 16:50 19:59 WBC (3.8-10.6) k/uL RBC (3.80-5.40) m/uL Neutrophils # (1.3-7.7) k/uL Lymphocytes # (1.0-4.8) k/uL BUN (7-17) mg/dL Creatinine (0.52-1.04) mg/dL Glucose (74-99) mg/dL POC Glucose (mg/dL) 297 H 410 H 393 H (75-99) mg/dL 07/14/19 07/14/19 07/14/19 Range/Units 06:52 07:34 07:34 WBC 11.3 H (3.8-10.6) k/uL RBC 3.77 L (3.80-5.40) m/uL Neutrophils # 10.3 H (1.3-7.7) k/uL Lymphocytes # 0.4 L (1.0-4.8) k/uL BUN 46 H (7-17) mg/dL Creatinine 1.24 H (0.52-1.04) mg/dL Glucose 409 H (74-99) mg/dL POC Glucose (mg/dL) 388 H (75-99) mg/dL Microbiology - Last 24 Hours (Table) 07/10/19 12:18 Blood Culture - Preliminary Blood No Growth after 72 hours Assessment and Plan Plan: 1 acute COPD exacerbation. The patient is a remote ex-smoker. Nevertheless she has had extensive secondhand smoking history. Currently she is actively bronchospastic and wheezy and this was probably exacerbated by an underlying bronchitis. She has a congested cough, unable to bring up much sputum. He improved with a combination of bronchodilators and systemic steroids. 2 diabetes mellitus, insulin-dependent 3 obesity with a BMI of 51 4 shortness of breath secondary to above 5 paroxysmal atrial fibrillation currently in normal sinus rhythm and the patient is on long-term anticoagulation at a [facility] 6 hyperlipidemia 7 hypertension 8 osteoarthritis 9 chronic back pain with previous history of kyphoplasty Plan She is recovered. I she has underlying COPD and she wasn't exacerbation and she is fully recovered. She is feeling much better. She can go home on a short course of prednisone burst taper and should be offered a home nebulizer with albuterol to be used twice a day. Outpatient follow-up with me in 2-3 weeks for further advice regarding management. No other issues for now.
[2019-07-14 11:14] VITALS: PULSE 72
[2019-07-14 11:36] LABS: Glucose,Whole Blood 361 mg/dL (75-99)
[2019-07-14] MEDS ORDERED: predniSONE 20 MG TAB PO SCH (12:15)
--- NOTE | 2019-07-16 04:51 | CDI ---
Documentation Clarification Form Date: 07/16/19 From: Jaspal Cuevas Phone: If you have a question about this query, please contact Jaleesa Dotson, [employer] at [phone] between 8am and 5pm. Admit Date: 07/12/19 Discharge Date:07/14/19 Patient Name: Hortencia Mcpherson Visit Number: [id number] ATTENTION: The Clinical Documentation Specialists (CDI) and [facility] Coding Staff appreciate your assistance in clarifying documentation. Please respond to the clarification below the line at the bottom and electronically sign. The CDI & [facility] Coding staff will review the response and follow-up if needed. Please note: Queries are made part of the Legal Health Record. If you have any questions, please contact the author of this message via ITS. Dear Scotty López, Patient admitted with SOB, Found to have COPD exacerbation and also noted chronic diastolic dysfunction. History/Risk Factors: COPD, BMI >50, A. fib, ATN. Clinical Indicators: VS/Pulse OX: 91L BNP: 233 Echocardiogram Results: chronic diastolic dysfunction, ejection fraction 55-60% ,trivial pericardial effusion Chest X Ray: Heart is mildly enlarged.There is right basilar airspace disease.There is vascular congestion without mauro edema, Treatment: IV lasix. In your professional opinion, can you please clarify the acuity of CHF if known? Diastolic Heart Failure: Acute Chronic Acute on Chronic AND, Please specify if SOB related to both COPD exacerbation and CHF Exacerbation (If CHF exist)? YES NO chronic diastolic dysfunction, ejection fraction 55-60% dyspnea is due to copd ,unlikely chf MTDD
--- NOTE | 2019-08-05 20:44 | P.DS ---
Providers Date of admission: 07/12/19 08:02 Expected date of discharge: 07/14/19 Attending physician: Scotty Romero MD Consults: 07/10/19 15:05 Consult Physician Routine Consulting Provider: Benito Garcia Consult Reason/Comments: Dyspnea Do you want consulting provider notified?: Yes Primary care physician: Rox Parmar [facility] Course: Discharge diagnosis Shortness of breath secondary to acute COPD exacerbation Sinus bradycardia, possibly medication induced. Improved now Paroxysmal atrial fibrillationon: on Eliquis chronic diastolic dysfunction, ejection fraction 55-60% Renal failure possibly secondary to acute on chronic with acute tubular necrosis prerenal acute renal failure Chronic kidney stage III baseline hyperglycemia with uncontrolleddiabetes type 2 secondary to steroids. History of diabetes mellitus type 2 Hypertension Hyperlipidemia History of degenerative joint disease History of pneumonia History of back surgery History of cholecystectomy Obesity with body mass index of 49.6 DVT prophylaxis: Eliquis GI prophylaxis: [facility] course this is a pleasant 78 years old female with past medical history of atrial fibrillation, diabetes mellitus, hypertension, hyperlipidemia, as her arthritis, chronic back pain, difficulty in ambulation due to back pain, chronic peripheral leg edema . Patient presents with progressive dyspnea over one year, getting progressively worse over the last 2 months. Associated with mild cough. No chest pain. No change in her mental status. No recent upper respiratory tract infection.patient has been already evaluated by photographer lithographic and ordered high- resolution CAT scan of the chest to rule out interstitial lung disease. Patient also has history of A. fib and she is on Eliquis patient is not on home oxygen. She has mild cough and she doesn't want any cough syrup vitals are stable and she saturating 97% on room air. patient is afebrile. Labs show an unremarkable CBC, INR and BMP. Sugar is 168-178. Liver enzymes not elevated. troponin is negative and proBNP is 233.Chest x-ray:no significant change per radiologist, there is vascular congestion without mauro edema. EKG showing normal sinus rhythm at [address]-T changes. CT of the chest showing no pulmonary embolism, mild atelectasis. on admission patient received 1 dose of Lasix 20 mg, Rocephin and Zithromax. Also she was started on Solu-Medrol 60 mg every 6 hours. And Lasix 20 mg IV every 12 hours 07/12/2019 Patient is sitting up in bed eating lunch and appears to be in no acute distress. Patient states that her breathing is a little better. Patient has been diuresing well with the IV lasix and will continue at this time. Pulmonary is following. Patient remains on bronchodilators, IV steroids, and IV lasix and wi ll continue at this time. Patient is intermittently on 02 via NC and does not normally wear home 02. Blood sugars have been slightly elevated and being covered with her home insulin along with sliding scale. 07/13/2019 Patient is awake alert and oriented 3. Breathing status is much improved. Patient is being weaned off from oxygen from nasal cannula to room air. otherwise patient is hyperglycemic IV steroids. Lasix will be changed to by mouth. No complaints of chest pain. Shortness of breath is improviingf. No nausea vomiting or abdominal pain. Patient is able to ambulate in the hallway today. Pulmonary is following. Cultures have been negative so far Anticipate discharge in the next 24 hours. 07/14/2019 Patient's breathing status is improving. IV Solu-Medrol was changed to pred nisone with tapering course. Home nebulizer is being arranged. Pulmonary has seen the patient. Currently on oral Lasix as well. Oxygenating well on room air. No fever no chills. No complaints of chest pain. No palpitations. Discharge medication reconciliation was done. Temp 98.7 F 07/14/19 07:00 Pulse 80 07/14/19 07:54 Resp 14 07/14/19 07:00 BP 130/70 07/14/19 07:00 Pulse Ox 95 07/14/19 07:00 Intake & Output 07/13/19 07/14/19 07/14/19 18:59 06:59 18:59 Intake Total 560 298 Balance 560 298 Weight 120.8 kg Intake: Oral 560 298 Other: Voiding Method Toilet # Voids 1 1 Total time taken greater than 35 minutes including 18 minutes for counseling and coordination of care. Patient Condition at Discharge: Stable Plan - Discharge Summary Discharge Rx Participant: No New Discharge Prescriptions: New predniSONE See Taper PO DIRECTED #26 tab Albuterol Nebulized [Ventolin Nebulized] 2.5 mg INHALATION Q12H #60 nebu Continue glipiZIDE XL [Glucotrol XL] 5 mg PO DAILY Oxybutynin Chloride [Oxybutynin Chloride ER] 10 mg PO DAILY amLODIPine [Norvasc] 5 mg PO DAILY sitaGLIPtin [Januvia] 100 mg PO DAILY Apixaban [Eliquis] 5 mg PO BID Insuln Asp Prt/Insulin Aspart [NovoLOG MIX 70-30 VIAL] 20 unit SQ DAILY Montelukast [Singulair] 10 mg PO DAILY Losartan Potassium [Cozaar] 25 mg PO BID Furosemide [Lasix] 40 mg PO DAILY Biotin 10,000 mcg PO BID Metoprolol Tartrate [Lopressor] 25 mg PO QAM Atorvastatin [Lipitor] 40 mg PO DAILY Buprenorphine [Buprenorphine 10MCG/HR] 1 patch TRANSDERM MO Omeprazole 40 mg PO DAILY Discharge Medication List Oxybutynin Chloride [Oxybutynin Chloride ER] 10 mg PO DAILY 12/04/17 [History] glipiZIDE XL [Glucotrol XL] 5 mg PO DAILY 12/04/17 [History] Apixaban [Eliquis] 5 mg PO BID 04/09/18 [History] amLODIPine [Norvasc] 5 mg PO DAILY 04/09/18 [History] sitaGLIPtin [Januvia] 100 mg PO DAILY 04/09/18 [History] Biotin 10,000 mcg PO BID 03/28/19 [History] Furosemide [Lasix] 40 mg PO DAILY 03/28/19 [History] Insuln Asp Prt/Insulin Aspart [NovoLOG MIX 70-30 VIAL] 20 unit SQ DAILY 03/28/19 [History] Losartan Potassium [Cozaar] 25 mg PO BID 03/28/19 [History] Montelukast [Singulair] 10 mg PO DAILY 03/28/19 [History] Atorvastatin [Lipitor] 40 mg PO DAILY 04/09/19 [History] Metoprolol Tartrate [Lopressor] 25 mg PO QAM 04/09/19 [History] Buprenorphine [Buprenorphine 10MCG/HR] 1 patch TRANSDERM MO 07/09/19 [History] Omeprazole 40 mg PO DAILY 07/10/19 [History] Albuterol Nebulized [Ventolin Nebulized] 2.5 mg INHALATION Q12H #60 nebu 07/14/19 [Rx] predniSONE See Taper PO DIRECTED #26 tab 07/14/19 [Rx] Follow up Appointment(s)/Referral(s): [facility] [NON-STAFF] - As Needed (nebulizer) Rox Parmar DO [Primary Care Provider] - 07/19/19 2:20 pm Jordi Pelaez MD [STAFF PHYSICIAN] - 08/05/19 2:30 pm Patient Instructions/Handouts: COPD (Chronic Obstructive Pulmonary Disease) (DC) Discharge Disposition: HOME WITH HOME HEALTH SERVICES
== END 2019-07-14 14:43 | disposition home health service (06) | DRG 190 ==
LOC: EC 11:40 → 4SSUR 14:55 → OBSVTOIN 07-12 08:02
PROVIDERS: ADMIT Internal Medicine; ATTEND Internal Medicine
DX: J44.1 Chronic obstructive pulmonary disease with (acute) exacerbation (principal); N17.0 Acute kidney failure with tubular necrosis; Z68.43 Body mass index [BMI] 50.0-59.9, adult; I48.20 Chronic atrial fibrillation, unspecified; I50.32 Chronic diastolic (congestive) heart failure; M19.90 Unspecified osteoarthritis, unspecified site; J84.10 Pulmonary fibrosis, unspecified; Z77.22 Contact with and (suspected) exposure to environmental tobacco smoke (acute) (chronic); I10 Essential (primary) hypertension; G89.29 Other chronic pain; E78.5 Hyperlipidemia, unspecified; E11.65 Type 2 diabetes mellitus with hyperglycemia; E66.9 Obesity, unspecified; Z87.01 Personal history of pneumonia (recurrent); Z82.49 Family history of ischemic heart disease and other diseases of the circulatory system; Z87.891 Personal history of nicotine dependence; Z90.49 Acquired absence of other specified parts of digestive tract; Z79.899 Other long term (current) drug therapy; Z79.01 Long term (current) use of anticoagulants; Z79.4 Long term (current) use of insulin
CPT/HCPCS: 36415; 71046; 71275; 80048; 80053; 83036; 83605; 83735; 83880; 84484; 85025; 85379; 85610; 85730; 87040; 93005; 93306; 94640; 94760; 96365; 96375; 99285

== ENCOUNTER 2020-07-20 08:53 | Emergency (ER) | payer MEDICARE ==
[2020-07-20 08:58] VITALS: RESP 18; TEMP 98.1
[2020-07-20] MEDS ORDERED: diazePAM 2 MG TAB PO STA (09:15)
[2020-07-20] MEDS ORDERED: ONDANSETRON 4 MG/2 ML VIAL IVP STA (09:15)
[2020-07-20] MEDS ORDERED: HYDROmorphone 0.5 MG/0.5 ML SYRINGE IVP STA ×2 (09:15→11:28)
--- NOTE | 2020-07-20 09:29 | ED ---
Back Pain HPI - General Chief Complaint: Back Pain/Injury Stated Complaint: Back pain Time Seen by Provider: 07/20/20 09:04 Source: patient Limitations: no limitations - History of Present Illness Initial Comments: 79yo female presenting for cc of left sided muscle spasms. pt states she has struggled wtih left sided muscle spasms for "40 years" she states that they go down the entire left side of her back and radiate through to her chest. pt states "its not my heart, joy had this forever". Pt states is a spasm along the left side of back. Denies jaw, arm pain, nausea, vomiting, dysuria, hematuria. pt states the pain get so severe during the spasm it take her breath away. d enies dyspnea in absence of pain. denies chest pressure. patient denies leg swelling. pt states she went to the chiropractor yesterday and she took a norco this morning but it doesnt seem to help. - Related Data Home Medications Medication Instructions Recorded Confirmed RX: Oxybutynin Chloride 10 mg PO DAILY 12/04/17 07/10/19 [Oxybutynin Chloride ER] RX: glipiZIDE XL [Glucotrol XL] 5 mg PO DAILY 12/04/17 07/10/19 RX: Apixaban [Eliquis] 5 mg PO BID 04/09/18 07/10/19 RX: amLODIPine [Norvasc] 5 mg PO DAILY 04/09/18 07/10/19 RX: sitaGLIPtin [Januvia] 100 mg PO DAILY 04/09/18 07/10/19 RX: Biotin 10,000 mcg PO BID 03/28/19 07/10/19 RX: Furosemide [Lasix] 40 mg PO DAILY 03/28/19 07/10/19 RX: Insuln Asp Prt/Insulin Aspart 20 unit SQ DAILY 03/28/19 07/10/19 [NovoLOG MIX 70-30 VIAL] RX: Losartan Potassium [Cozaar] 25 mg PO BID 03/28/19 07/10/19 RX: Montelukast [Singulair] 10 mg PO DAILY 03/28/19 07/10/19 RX: Atorvastatin [Lipitor] 40 mg PO DAILY 04/09/19 07/10/19 RX: Metoprolol Tartrate [Lopressor] 25 mg PO QAM 04/09/19 07/10/19 RX: Buprenorphine [Buprenorphine 1 patch TRANSDERM MO 07/09/19 07/10/19 10MCG/HR] RX: Omeprazole 40 mg PO DAILY 07/10/19 07/10/19 Previous Rx's Medication Instructions Recorded RX: Albuterol Nebulized [Ventolin 2.5 mg INHALATION Q12H #60 nebu 07/14/19 Nebulized] RX: predniSONE See Taper PO DIRECTED #26 tab 07/14/19 Cephalexin [Keflex] 500 mg PO Q6HR 7 Days #28 cap 07/20/20 Allergies Allergy/AdvReac Type Severity Reaction Status Date / Time tetracycline Allergy Unknown Verified 07/20/20 08:58 fentanyl AdvReac "IN Verified 07/20/20 08:58 ANOTHER PLANET, DIDNT KNOW WHERE SHE WAS" morphine AdvReac Nausea & Verified 07/20/20 08:58 Vomiting Review of Systems ROS Statement: Those systems with pertinent positive or pertinent negative responses have been documented in the HPI. ROS Other: All systems not noted in ROS Statement are negative. Past Medical History Past Medical History: Atrial Fibrillation, Chest Pain / Angina, Diabetes Mellitus, Hyperlipidemia, Hypertension, Osteoarthritis (OA), Pneumonia Additional Past Medical History / Comment(s): Paroxysmal Afib, POST OP INFECTION AFTER BACK SURGERY, CHRONIC BACK PAIN FROM T8 FX, difficulty walking d/t back pain, CHRONIC PERIPHERAL LEG EDEMA, UTIs, R humerus fracture. History of Any Multi-Drug Resistant Organisms: None Reported Past Surgical History: Back Surgery, Cholecystectomy, Orthopedic Surgery Additional Past Surgical History / Comment(s): 2015 LUMBAR SURGERY, FX NOSE REPAIR, BILATERAL CATARACT SURGERY, R WRIST CARPAL TUNNEL SURGERY, kyphoplasty T8 ON 06/26/16 AND ONE BEFORE. Past Anesthesia/Blood Transfusion Reactions: No Reported Reaction Additional Past Anesthesia/Blood Transfusion Reaction / Comment(s): NEVER HAD A BLOOD TRANSFUSION. Past Psychological History: No Psychological Hx Reported Smoking Status: Never smoker Past Alcohol Use History: None Reported Past Drug Use History: None Reported - Past Family History Father Family Medical History: Myocardial Infarction (MA) Additional Family Medical History / Comment(s): FATHER AT AGE 52 OF AN MA Mother Additional Family Medical History / Comment(s): MOTHER AT AGE 89 OF CELEBREX PROBLEM. General Exam - General Exam Comments Initial Comments: General: The patient is awake and alert Eye: Pupils are equal, round and reactive to light, extra-ocular movements are intact. No nystagmus. There is normal conjunctiva bilaterally. No signs of icterus. Ears, nose, mouth and throat: There are moist mucous membranes and no oral lesions. Neck: The neck is supple, there is no tenderness or JVD. Cardiovascular: There is a regular rate and rhythm. No murmur, rub or gallop is appreciated. Respiratory: Lungs are clear to auscultation, respirations are non-labored, breath sounds are equal. No wheezes, stridor, rales, or rhonchi. Gastrointestinal: Soft, non-distended, non-tender abdomen without masses or organomegaly noted. There is no rebound or guarding present. Musculoskeletal: pain with rotation of the torso. Pain to palpation of the left paraspinal muscles of the back, mostly thoracic. Normal ROM, no tenderness. Strength 5/5 of the UE and LE b/l. Sensation intact of the UE and LE b/l. Radial and DP pulses equal bilaterally 2+. Neurological: A&O x 3. CN II-XII intact grossly, There are no obvious motor or sensory deficits. Coordination appears grossly intact. Speech is normal. Skin: Skin is warm and dry and no rashes or lesions are noted. Psychiatric: Cooperative, appropriate mood & affect, normal judgment. Limitations: no limitations Course Vital Signs 07/20/20 07/20/20 07/20/20 08:56 09:58 10:00 Temperature 98.1 F Pulse Rate 93 89 89 Respiratory 18 18 18 Rate Blood Pressure 136/87 124/86 124/86 O2 Sat by Pulse 98 98 98 Oximetry 07/20/20 11:34 Temperature Pulse Rate 90 Respiratory 18 Rate Blood Pressure 105/73 O2 Sat by Pulse 100 Oximetry Medical Decision Making - Medical Decision Making Labs reveal increased liver enzymse. no abdominal complaints. no RUQ pain or epigastric pain. no deficitive obstruction on US. Patient hepatitis panel pending. Pt denies urinary symptoms. not clean catch. culture pending. pt pain controlled. she states this is her typical back spasms she has had for 40 years denying concerning changes. given age cardiac profile obtained. EKG no acute findings. Troponin (-) Case discussed at length wtih attending who is agreeable to discharge wiht PCP f/u for liver enzymes. pt agreeable to this care plan and prefers discharge at this time. - Lab Data Result diagrams: 07/20/20 09:28 07/20/20 09:28 Lab Results 07/20/20 07/20/20 07/20/20 Range/Units 09:28 09:28 09:28 WBC 10.3 (3.8-10.6) k/uL RBC 4.70 (3.80-5.40) m/uL Hgb 14.4 (11.4-16.0) gm/dL Hct 43.6 (34.0-46.0) % MCV 92.8 (80.0-100.0) fL MCH 30.6 (25.0-35.0) pg MCHC 32.9 (31.0-37.0) g/dL RDW 13.3 (11.5-15.5) % Plt Count 312 (150-450) k/uL MPV 8.3 Neutrophils % 73 % Lymphocytes % 18 % Monocytes % 5 % Eosinophils % 2 % Basophils % 1 % Neutrophils # 7.4 (1.3-7.7) k/uL Lymphocytes # 1.9 (1.0-4.8) k/uL Monocytes # 0.5 (0-1.0) k/uL Eosinophils # 0.2 (0-0.7) k/uL Basophils # 0.1 (0-0.2) k/uL PT 11.0 (9.0-12.0) sec INR 1.1 (<1.2) APTT 28.8 (22.0-30.0) sec Sodium 140 (137-145) mmol/L Potassium 4.3 (3.5-5.1) mmol/L Chloride 110 H (98-107) mmol/L Carbon Dioxide 20 L (22-30) mmol/L Anion Gap 10 mmol/L BUN 23 H (7-17) mg/dL Creatinine 1.21 H (0.52-1.04) mg/dL Est GFR (CKD-EPI)AfAm 50 (>60 ml/min/1.73 sqM) Est GFR (CKD-EPI)NonAf 44 (>60 ml/min/1.73 sqM) Glucose 214 H (74-99) mg/dL Calcium 9.8 (8.4-10.2) mg/dL Magnesium 2.2 (1.6-2.3) mg/dL Total Bilirubin 1.1 (0.2-1.3) mg/dL AST 505 H (14-36) U/L ALT 509 H (4-34) U/L Alkaline Phosphatase 290 H (38-126) U/L Troponin I (0.000-0.034) ng/mL Total Protein 7.5 (6.3-8.2) g/dL Albumin 4.4 (3.5-5.0) g/dL Urine Color Urine Appearance (Clear) Urine pH (5.0-8.0) Ur Specific [place] (1.001-1.035) Urine Protein (Negative) Urine Glucose (UA) (Negative) Urine Ketones (Negative) Urine Blood (Negative) Urine Nitrite (Negative) Urine Bilirubin (Negative) Urine Urobilinogen (<2.0) mg/dL Ur Leukocyte Esterase (Negative) Urine RBC (0-5) /hpf Urine WBC (0-5) /hpf Ur Squamous Epith Cells (0-4) /hpf Urine Bacteria (None) /hpf Hyaline Casts (0-2) /lpf Urine Mucus (None) /hpf 07/20/20 07/20/20 Range/Units 09:28 11:20 WBC (3.8-10.6) k/uL RBC (3.80-5.40) m/uL Hgb (11.4-16.0) gm/dL Hct (34.0-46.0) % MCV (80.0-100.0) fL MCH (25.0-35.0) pg MCHC (31.0-37.0) g/dL RDW (11.5-15.5) % Plt Count (150-450) k/uL MPV Neutrophils % % Lymphocytes % % Monocytes % % Eosinophils % % Basophils % % Neutrophils # (1.3-7.7) k/uL Lymphocytes # (1.0-4.8) k/uL Monocytes # (0-1.0) k/uL Eosinophils # (0-0.7) k/uL Basophils # (0-0.2) k/uL PT (9.0-12.0) sec INR (<1.2) APTT (22.0-30.0) sec Sodium (137-145) mmol/L Potassium (3.5-5.1) mmol/L Chloride (98-107) mmol/L Carbon Dioxide (22-30) mmol/L Anion Gap mmol/L BUN (7-17) mg/dL Creatinine (0.52-1.04) mg/dL Est GFR (CKD-EPI)AfAm (>60 ml/min/1.73 sqM) Est GFR (CKD-EPI)NonAf (>60 ml/min/1.73 sqM) Glucose (74-99) mg/dL Calcium (8.4-10.2) mg/dL Magnesium (1.6-2.3) mg/dL Total Bilirubin (0.2-1.3) mg/dL AST (14-36) U/L ALT (4-34) U/L Alkaline Phosphatase (38-126) U/L Troponin I <0.012 (0.000-0.034) ng/mL Total Protein (6.3-8.2) g/dL Albumin (3.5-5.0) g/dL Urine Color Yellow Urine Appearance Cloudy H (Clear) Urine pH 5.5 (5.0-8.0) Ur Specific [place] 1.033 (1.001-1.035) Urine Protein 1+ H (Negative) Urine Glucose (UA) Negative (Negative) Urine Ketones Negative (Negative) Urine Blood Negative (Negative) Urine Nitrite Negative (Negative) Urine Bilirubin 1+ H (Negative) Urine Urobilinogen 2.0 (<2.0) mg/dL Ur Leukocyte Esterase Large H (Negative) Urine RBC 2 (0-5) /hpf Urine WBC 12 H (0-5) /hpf Ur Squamous Epith Cells 14 H (0-4) /hpf Urine Bacteria Rare H (None) /hpf Hyaline Casts 8 H (0-2) /lpf Urine Mucus Many H (None) /hpf Disposition Clinical Impression: Back pain, Back spasm Disposition: HOME SELF-CARE Condition: Good Instructions (If sedation given, give patient instructions): Muscle Spasm (ED) Additional Instructions: Please use medication as discussed. Please follow-up with family doctor in the next 2 days, recommend repeat liver enzymes (CMP), will call with acute hepatitis panel. Please return to emergency room if the symptoms increase or worsen or for any other concerns. Prescriptions: Cephalexin [Keflex] 500 mg PO Q6HR 7 Days #28 cap Is patient prescribed a controlled substance at d/c from ED?: No Referrals: Rox Parmar DO [Primary Care Provider] - 1-2 days Time of Disposition: 12:05
[2020-07-20 09:54] LABS: Basophils # (A) 0.1 k/uL (0-0.2); Basophils % (A) 1 %; Eosinophils # (A) 0.2 k/uL (0-0.7); Eosinophils % (A) 2 %; HCT 43.6 % (34.0-46.0); HGB 14.4 gm/dL (11.4-16.0); Lymphocytes # (A) 1.9 k/uL (1.0-4.8); Lymphocytes % (A) 18 %; MCH 30.6 pg (25.0-35.0); MCHC 32.9 g/dL (31.0-37.0); MCV 92.8 fL (80.0-100.0); Mean Platelet Volume 8.3; Monocytes # (A) 0.5 k/uL (0-1.0); Monocytes % (A) 5 %; Neutrophils # (A) 7.4 k/uL (1.3-7.7); Neutrophils % (A) 73 %; Platelet Count 312 k/uL (150-450); RDW 13.3 % (11.5-15.5); WBC 10.3 k/uL (3.8-10.6)
[2020-07-20 10:10] LABS: Albumin 4.4 g/dL (3.5-5.0); Calcium 9.8 mg/dL (8.4-10.2); Magnesium 2.2 mg/dL (1.6-2.3); Potassium 4.3 mmol/L (3.5-5.1); Total Bilirubin 1.1 mg/dL (0.2-1.3); Total Protein 7.5 g/dL (6.3-8.2)
[2020-07-20 10:19] LABS: INR 1.1 (<1.2); Partial Thromboplastin Time 28.8 sec (22.0-30.0)
--- NOTE | 2020-07-20 11:05 | XR ---
EXAM: XR Chest, 2 Views CLINICAL HISTORY: Chest Pain TECHNIQUE: Frontal and lateral views of the chest. COMPARISON: July 10, 2019. FINDINGS: Lungs: Low lung volumes. No focal consolidative process. Pleural space: Unremarkable. No pleural effusions. No pneumothorax. Heart: Cardiac silhouette is within normal limits. No pulmonary edema or failure. Mediastinum: Unremarkable. Bones/joints: Unremarkable. Other findings: Multilevel remote vertebroplasty. IMPRESSION: No acute cardiopulmonary process.
[2020-07-20 11:35] VITALS: BP 105/73; PULSE 90
--- NOTE | 2020-07-20 11:47 | US ---
EXAM: US Abdomen Limited, Right Upper Quadrant CLINICAL HISTORY: elevated enzymes TECHNIQUE: Real-time ultrasound of the right upper quadrant with image documentation. COMPARISON: No relevant prior studies available. FINDINGS: Technically difficult study due to body habitus and bowel gas. Gallbladder is nonvisualized, consistent with cholecystectomy. The common duct is dilated at 1.3 cm. Heterogeneous echotexture of the liver without focal lesions. The pancreatic duct is dilated up to 4 mm. Unremarkable right kidney. IMPRESSION: Technically difficult study due to body habitus and bowel gas. Status post cholecystectomy. Prominent caliber of the common duct and pancreatic duct measuring 1.3 cm and 0.4 cm, respectively. Correlate with clinical findings and lab values for occult biliary obstruction. If there are no contraindications, MRCP may further evaluate.
[2020-07-20 12:18] LABS: Appearance,Urine Cloudy (Clear); Bacteria,Urine Rare /hpf; Bilirubin,Urine 1+ (Negative); Blood,Urine Negative (Negative); Color,Urine Yellow; Glucose,Urine (UA) Negative (Negative); Hyaline Casts,Urine 8 /lpf (0-2); Ketones,Urine Negative (Negative); Leukocyte Esterase,Urine Large (Negative); Mucus,Urine Many /hpf; Nitrite,Urine Negative (Negative); PH, Urine 5.5 (5.0-8.0); Protein,Urine 1+ (Negative); RBC,Urine 2 /hpf (0-5); Specific Gravity,Urine 1.033 (1.001-1.035); Squamous Epithelial Cell,Urine 14 /hpf (0-4); WBC,Urine 12 /hpf (0-5)
[2020-07-20 20:01] LABS: Hepatitis A Antibody IgM Non-Reactive (Non-Reactive); Hepatitis B Core IgM Non-Reactive (Non-Reactive); Hepatitis B Surface Antigen Non-Reactive (Non-Reactive); Hepatitis C IgG Antibody Non-Reactive (Non-Reactive)
== END 2020-07-20 12:09 | disposition home or self-care (01) ==
LOC: EC 08:53
DX: M62.830 Muscle spasm of back (principal); R10.9 Unspecified abdominal pain; E11.9 Type 2 diabetes mellitus without complications; E78.5 Hyperlipidemia, unspecified; I10 Essential (primary) hypertension; I48.0 Paroxysmal atrial fibrillation; Z79.01 Long term (current) use of anticoagulants; Z79.4 Long term (current) use of insulin; Z79.899 Other long term (current) drug therapy; Z88.1 Allergy status to other antibiotic agents; Z88.5 Allergy status to narcotic agent; Z88.8 Allergy status to other drugs, medicaments and biological substances; Z90.49 Acquired absence of other specified parts of digestive tract; Z98.42 Cataract extraction status, left eye; Z98.41 Cataract extraction status, right eye
CPT/HCPCS: 36415; 93005; 80053; 80074; 83735; 84484; 85025; 85610; 85730; 81001; 71046; 76705; 99284; 96374; 96375; 96376; J2405; J1170

== ENCOUNTER 2020-09-16 10:04 | Emergency (ER) | payer MEDICARE ==
[2020-09-16 10:09] VITALS: TEMP 98.7
[2020-09-16] MEDS ORDERED: HYDROmorphone 0.5 MG/0.5 ML SYRINGE IVP STA ×2 (10:19→11:47)
[2020-09-16] MEDS ORDERED: LIDOCAINE 5% PATCH TOPICAL STA (10:20)
[2020-09-16] MEDS ORDERED: DIAZEPAM 5 MG/ML 2 ML INJ IVP STA (10:20)
--- NOTE | 2020-09-16 10:23 | ED ---
Back Pain [facility] - General Chief Complaint: Back Pain/Injury Stated Complaint: back pain Time Seen by Provider: 09/16/20 10:11 Source: patient Limitations: no limitations - History of Present Illness Initial Comments: 79-year-old feel presenting today for chief complaint of right-sided low back pain. Patient states she has struggled with muscle spasms and chronic low back pain for over 40 years. Patient states that she occasionally has flares. Patient states she has had increasing pain for the past few days and has attempted to use her TENS unit and take her Xenia as directed however nothing seems to help. Patient states he continues to spasm she can feel a tightening. Patient denies any loss of bowel bladder control urinary retention falls or new trauma or IV drug use history of cancer fevers she denies any abdominal pain chest pain or dyspnea. She denies any weakness or sensation deficits of the lower extremities. She states she still able to weight-bear and ambulate. When she could no longer tolerate the pain this morning she presented to the emergency department for symptomatically controlled. Patient sates she does have ALLERGIES to morphine and but no however she has tolerated dilaudid in the past. Patient appears uncomfortable on arrival. Denies taking any other muscle relaxamts/medications aside from her norco tablet prior to arrival. - Related Data Home Medications Medication Instructions Recorded Confirmed Oxybutynin Chloride [Oxybutynin 10 mg PO DAILY 12/04/17 09/16/20 Chloride ER] glipiZIDE XL [Glucotrol XL] 5 mg PO DAILY 12/04/17 09/16/20 amLODIPine [Norvasc] 5 mg PO DAILY 04/09/18 09/16/20 sitaGLIPtin [Januvia] 100 mg PO DAILY 04/09/18 09/16/20 Biotin 5,000 mcg PO DAILY 03/28/19 09/16/20 Furosemide [Lasix] 40 mg PO DAILY 03/28/19 09/16/20 Montelukast [Singulair] 10 mg PO DAILY 03/28/19 09/16/20 Atorvastatin [Lipitor] 40 mg PO DAILY 04/09/19 09/16/20 Omeprazole 40 mg PO DAILY 07/10/19 09/16/20 Insulin Lispro Protamin/Lispro 20 unit SQ DAILY 09/16/20 09/16/20 [humaLOG Mix 75-25 Kwikpen] Losartan Potassium 50 mg PO DAILY 09/16/20 09/16/20 Magnesium Oxide 400 mg PO DAILY 09/16/20 09/16/20 Metoprolol Succinate [Toprol XL] 25 mg PO DAILY 09/16/20 09/16/20 Rivaroxaban [Xarelto] 20 mg PO DAILY 09/16/20 09/16/20 Previous Rx's Medication Instructions Recorded Cyclobenzaprine [Flexeril] 10 mg PO BID PRN 7 Days #14 tab 09/16/20 Allergies Allergy/AdvReac Type Severity Reaction Status Date / Time tetracycline Allergy Unknown Verified 09/16/20 20:30 fentanyl AdvReac "IN Verified 09/16/20 20:30 ANOTHER PLANET, DIDNT KNOW WHERE SHE WAS" morphine AdvReac Nausea & Verified 09/16/20 20:30 Vomiting Review of Systems ROS Statement: Those systems with pertinent positive or pertinent negative responses have been documented in the HPI. ROS Other: All systems not noted in ROS Statement are negative. Past Medical History Past Medical History: Atrial Fibrillation, Chest Pain / Angina, Diabetes Mellitus, Hyperlipidemia, Hypertension, Osteoarthritis (OA), Pneumonia Additional Past Medical History / Comment(s): Paroxysmal Afib, POST OP INFECTION AFTER BACK SURGERY, CHRONIC BACK PAIN FROM T8 FX, difficulty walking d/t back pain, CHRONIC PERIPHERAL LEG EDEMA, UTIs, R humerus fracture. History of Any Multi-Drug Resistant Organisms: None Reported Past Surgical History: Back Surgery, Cholecystectomy, Orthopedic Surgery Additional Past Surgical History / Comment(s): 2015 LUMBAR SURGERY, FX NOSE REPAIR, BILATERAL CATARACT SURGERY, R WRIST CARPAL TUNNEL SURGERY, kyphoplasty T8 ON 06/26/16 AND ONE BEFORE. Past Anesthesia/Blood Transfusion Reactions: No Reported Reaction Additional Past Anesthesia/Blood Transfusion Reaction / Comment(s): NEVER HAD A BLOOD TRANSFUSION. Past Psychological History: No Psychological Hx Reported Smoking Status: Never smoker Past Alcohol Use History: None Reported Past Drug Use History: None Reported - Past Family History Father Family Medical History: Myocardial Infarction ([place]) Additional Family Medical History / Comment(s): FATHER AT AGE 52 OF AN [place] Mother Additional Family Medical History / Comment(s): MOTHER AT AGE 89 OF CELEB MARCEL PROBLEM. General Exam - General Exam Comments Initial Comments: General: The patient is awake and alert, in no distress, and does not appear acutely ill. Eye: Pupils are equal, round and reactive to light, extra-ocular movements are intact. No nystagmus. There is normal conjunctiva bilaterally. No signs of icterus. Ears, nose, mouth and throat: There are moist mucous membranes and no oral lesions. Neck: The neck is supple, there is no tenderness or JVD. Cardiovascular: There is a regular rate and rhythm. No murmur, rub or gallop is appreciated. Respiratory: Lungs are clear to auscultation, respirations are non-labored, breath sounds are equal. No wheezes, stridor, rales, or rhonchi. Gastrointestinal: Soft, non-distended, non-tender abdomen without masses or organomegaly noted. There is no rebound or guarding present. No CVA tenderness. Musculoskeletal: Paraspinal tenderness right sided of the lumbar spine. No midline tenderness. Normal ROM, no tenderness of the LE b/l. Strength 5/5 of the LE b/l. Sensation intact of the LE b/l including the saddle region. +2/5 DTR patellar/achilles. DP pulses equal bilaterally 2+. Neurological: A&O x 3. CN II-XII intact, There are no obvious motor or sensory deficits. Coordination appears grossly intact. Speech is normal. Skin: Skin is warm and dry. Red raised small papules and pustules in the formation of a square (size of TENS unit device stickers), no dermatomal pattern. Psychiatric: Cooperative, appropriate mood & affect, normal judgment. Limitations: no limitations Course Vital Signs 09/16/20 09/16/20 09/16/20 10:05 11:17 11:50 Temperature 98.7 F Pulse Rate 111 H 68 79 Respiratory 22 18 18 Rate Blood Pressure 127/62 118/50 O2 Sat by Pulse 98 99 100 Oximetry 09/16/20 12:40 Temperature 98.7 F Pulse Rate 89 Respiratory 18 Rate Blood Pressure 113/67 O2 Sat by Pulse 99 Oximetry Medical Decision Making - Medical Decision Making 79yo female presenting for cc of low back pain x 40 years. States feels like "typical spasm" x 1 week, not uncommon per patient to have these "flares". Dermatitis where TENS unit at. Does not appear consistent with a varicella infection. Patient has no neurological deficits on exam. No history or PE findings for cauda equina. Patient symptoms improved. Patient evaluated with attending who is agreeable to care plan and discharge. Disposition Clinical Impression: Back spasm, Contact dermatitis Disposition: HOME SELF-CARE Condition: Good Instructions (If sedation given, give patient instructions): Muscle Spasm (ED) Additional Instructions: Please use medication as discussed. Please follow-up with family doctor in the next 2 days.. Please return to emergency room if the symptoms increase or worsen or for any other concerns. Prescriptions: Cyclobenzaprine [Flexeril] 10 mg PO BID PRN 7 Days #14 tab PRN Reason: Muscle Spasm Is patient prescribed a controlled substance at d/c from ED?: No Referrals: Rox Parmar DO [Primary Care Provider] - 1-2 days Time of Disposition: 11:10
[2020-09-16] MEDS ORDERED: SODIUM CHLORIDE 0.9% 500 ML 500 ML IV ONE (10:38)
[2020-09-16] MEDS ORDERED: SODIUM CHLORIDE 0.9% 1,000 ML IV SCH (10:45)
[2020-09-16 11:21] VITALS: RESP 18
[2020-09-16 12:45] VITALS: BP 113/67; PULSE 89
== END 2020-09-16 12:41 | disposition home or self-care (01) ==
LOC: EC 10:04
DX: L25.9 Unspecified contact dermatitis, unspecified cause (principal); M62.830 Muscle spasm of back; I10 Essential (primary) hypertension; I20.9 Angina pectoris, unspecified; E78.5 Hyperlipidemia, unspecified; I48.0 Paroxysmal atrial fibrillation; Z79.4 Long term (current) use of insulin; Z79.899 Other long term (current) drug therapy; Z79.01 Long term (current) use of anticoagulants; Z88.1 Allergy status to other antibiotic agents; Z88.5 Allergy status to narcotic agent; Z98.890 Other specified postprocedural states
CPT/HCPCS: 96361; 96374; 96375; 96376; 99283

== ENCOUNTER 2020-09-16 18:01 | Inpatient (IN) | payer MEDICARE ==
[2020-09-16] MEDS ORDERED: HYDROmorphone 1 MG/ML 1 ML SYRINGE IVP STA (18:41)
[2020-09-16 18:59] LABS: Basophils % (A) 0 %; Eosinophils # (A) 0.2 k/uL (0-0.7); Eosinophils % (A) 3 %; HCT 41.4 % (34.0-46.0); HGB 13.2 gm/dL (11.4-16.0); Lymphocytes % (A) 15 %; MCH 30.2 pg (25.0-35.0); MCV 94.4 fL (80.0-100.0); Mean Platelet Volume 8.3; Monocytes # (A) 0.3 k/uL (0-1.0); Monocytes % (A) 5 %; Neutrophils # (A) 4.7 k/uL (1.3-7.7); Neutrophils % (A) 75 %; Platelet Count 228 k/uL (150-450); RBC 4.39 m/uL (3.80-5.40); RDW 13.6 % (11.5-15.5); WBC 6.2 k/uL (3.8-10.6)
[2020-09-16 19:08] LABS: Calcium 9.1 mg/dL (8.4-10.2); Potassium 4.8 mmol/L (3.5-5.1); Total Bilirubin 0.9 mg/dL (0.2-1.3); Total Protein 6.7 g/dL (6.3-8.2)
--- NOTE | 2020-09-16 19:17 | CT ---
EXAMINATION TYPE: CT thor lumbar spine wo con DATE OF EXAM: 09/16/2020 COMPARISON: 07/10/2016 and 12/26/2014. HISTORY: Chronic back pain. CT DLP: 2642.7 mGycm Automated exposure control for dose reduction was used. Images were obtained from T1 to assess to vertebra without contrast. There is metallic density in the disc spaces at L4-5 which is producing metal artifact. Thoracic and lumbar vertebra have fairly normal alignment. There is osteopenia. There is 15% wedging of L3 vertebr a. There is 15% depression superior endplate of L1 vertebra. There is wedging of T10 and T9 T8 verteb ra up to 50% with multilevel vertebroplasty. There is T6 wedging of 30% with vertebroplasty. There is no thoracic paraspinal mass. The sacroiliac joints are intact. I see no focal bone destruction. IMPRESSION: Multiple compression fractures as above. There is new fracture of L1 vertebra compared to old exam. T here are new fractures with vertebroplasty in the thoracic spine compared to old exam. I do not see e vidence for an acute fracture of the thoracic spine. L1 fracture could be relatively acute.
--- NOTE | 2020-09-16 19:35 | ED ---
Back Pain HPI - General Chief Complaint: Back Pain/Injury Stated Complaint: muscle spasms-revisit Time Seen by Provider: 09/16/20 18:16 Source: patient Limitations: physical limitation - History of Present Illness Initial Comments: 79-year-old female with history of chronic back pain presents to emergency Department with a chief complaint of back pain. Patient reports her symptoms started approximately one week ago and they have been gradually increasing severity. Patient reports the pain is mostly located in the right thoracic region without radiation. Patient reports this is what her typical pain feels like. States she took Beltrami at home that is prescribed to her primary care physician and it is not helping with the pain. States she was in emergency department earlier today and was discharged with pain medication. Patient reports she was not able to go to the pharmacy to hop picker her medication due to the pain. Patient reports she cannot stand or even ambulate due to the pain. States she lives alone at home and decided to come back due to the pain. She d enies any chest pain or new shortness of breath. Denies any abdominal pain. Does report history of cold cystectomy. Does have orthopedic surgery of her lower back but cannot recall the exact procedure. She denies any saddle anesthesia, urinary retention with overflow incontinence or bowel incontinence. - Related Data Home Medications Medication Instructions Recorded Confirmed Oxybutynin Chloride [Oxybutynin 10 mg PO DAILY 12/04/17 07/10/19 Chloride ER] glipiZIDE XL [Glucotrol XL] 5 mg PO DAILY 12/04/17 07/10/19 Apixaban [Eliquis] 5 mg PO BID 04/09/18 07/10/19 amLODIPine [Norvasc] 5 mg PO DAILY 04/09/18 07/10/19 sitaGLIPtin [Januvia] 100 mg PO DAILY 04/09/18 07/10/19 Biotin 10,000 mcg PO BID 03/28/19 07/10/19 Furosemide [Lasix] 40 mg PO DAILY 03/28/19 07/10/19 Insuln Asp Prt/Insulin Aspart 20 unit SQ DAILY 03/28/19 07/10/19 [NovoLOG MIX 70-30 VIAL] Losartan Potassium [Cozaar] 25 mg PO BID 03/28/19 07/10/19 Montelukast [Singulair] 10 mg PO DAILY 03/28/19 07/10/19 Atorvastatin [Lipitor] 40 mg PO DAILY 04/09/19 07/10/19 Metoprolol Tartrate [Lopressor] 25 mg PO QAM 04/09/19 07/10/19 Buprenorphine [Buprenorphine 1 patch TRANSDERM MO 07/09/19 07/10/19 10MCG/HR] Omeprazole 40 mg PO DAILY 07/10/19 07/10/19 Previous Rx's Medication Instructions Recorded Albuterol Nebulized [Ventolin 2.5 mg INHALATION Q12H #60 nebu 07/14/19 Nebulized] predniSONE See Taper PO DIRECTED #26 tab 07/14/19 Cephalexin [Keflex] 500 mg PO Q6HR 7 Days #28 cap 07/20/20 Cyclobenzaprine [Flexeril] 10 mg PO BID PRN 7 Days #14 tab 09/16/20 Allergies Allergy/AdvReac Type Severity Reaction Status Date / Time tetracycline Allergy Unknown Verified 09/16/20 18:06 fentanyl AdvReac "IN Verified 09/16/20 18:06 ANOTHER PLANET, DIDNT KNOW WHERE SHE WAS" morphine AdvReac Nausea & Verified 09/16/20 18:06 Vomiting Review of Systems ROS Statement: Those systems with pertinent positive or pertinent negative responses have been documented in the HPI. ROS Other: All systems not noted in ROS Statement are negative. Past Medical History Past Medical History: Atrial Fibrillation, Chest Pain / Angina, Diabetes Shireen litus, Hyperlipidemia, Hypertension, Osteoarthritis (OA), Pneumonia Additional Past Medical History / Comment(s): Paroxysmal Afib, POST OP INFECTION AFTER BACK SURGERY, CHRONIC BACK PAIN FROM T8 FX, difficulty walking d/t back pain, CHRONIC PERIPHERAL LEG EDEMA, UTIs, R humerus fracture. History of Any Multi-Drug Resistant Organisms: None Reported Past Surgical History: Back Surgery, Cholecystectomy, Orthopedic Surgery Additional Past Surgical History / Comment(s): 2015 LUMBAR SURGERY, FX NOSE REPAIR, BILATERAL CATARACT SURGERY, R WRIST CARPAL TUNNEL SURGERY, kyphoplasty T8 ON 06/26/16 AND ONE BEFORE. Past Anesthesia/Blood Transfusion Reactions: No Reported Reaction Additional Past Anesthesia/Blood Transfusion Reaction / Comment(s): NEVER HAD A BLOOD TRANSFUSION. Past Psychological History: No Psychological Hx Reported Smoking Status: Never smoker Past Alcohol Use History: None Reported Past Drug Use History: None Reported - Past Family History Father Family Medical History: Myocardial Infarction ([place]) Additional Family Medical History / Comment(s): FATHER AT AGE 52 OF AN [place] Mother Additional Family Medical History / Comment(s): MOTHER AT AGE 89 OF CELEBREX PROBLEM. General Exam Limitations: physical limitation General appearance: alert, in no apparent distress, obese Head exam: Present: atraumatic, normocephalic, normal inspection Eye exam: Present: normal appearance, PERRL, EOMI Pupils: Present: normal accommodation ENT exam: Present: normal exam, normal oropharynx, mucous membranes moist Neck exam: Present: normal inspection, full ROM. Absent: tenderness Respiratory exam: Present: normal lung sounds bilaterally. Absent: respiratory distress Cardiovascular Exam: Present: regular rate, normal rhythm, normal heart sounds GI/Abdominal exam: Present: soft. Absent: distended, tenderness, guarding, rigid Extremities exam: Present: normal inspection, full ROM, normal capillary refill. Absent: tenderness, pedal edema, joint swelling Back exam: Present: normal inspection, full ROM, tenderness, muscle spasm, paraspinal tenderness (right thoracic paraspinal tenderness), vertebral tenderness (mild mid vertebral tenderness) Neurological exam: Present: alert, oriented X3 Psychiatric exam: Present: normal affect, normal mood Skin exam: Present: warm, dry, intact, normal color Course Vital Signs 09/16/20 09/16/20 18:06 19:43 Temperature 98 F Pulse Rate 111 H 79 Respiratory 22 16 Rate Blood Pressure 142/85 129/82 O2 Sat by Pulse 100 97 Oximetry Medical Decision Making - Medical Decision Making 79-year-old female with history of chronic back pain presents to emergency room with a chief complaint of back pain. On physical examination, right paraspinal tenderness in the thoracic region. Patient was in the ED this morning and was discharged after some symptomatic relief. She is returning with exact same pain. The concern for cauda equina at this time. CT of the thoracic lumbar spine obtained showing multiple compression fractures. There also appears to be a new fracture at L1. CBC unremarkable. CMP reveals transaminitis but this appears elevated and her most recent laboratory draws. surgical history of cholecystectomy. the patient was given 1.5 milligrams of Dilaudid emergency department if she does feel some improvement in symptoms. She was also given some antiemetics and IV fluids. I discussed the case with YEIMI Do who will admit patient for Dr. Dietrich. Case discussed with Orthopedics on consult Social work consult. - Lab Data Result diagrams: 09/16/20 18:50 09/16/20 18:50 Lab Results 09/16/20 09/16/20 Range/Units 18:50 18:50 WBC 6.2 (3.8-10.6) k/uL RBC 4.39 (3.80-5.40) m/uL Hgb 13.2 (11.4-16.0) gm/dL Hct 41.4 (34.0-46.0) % MCV 94.4 (80.0-100.0) fL MCH 30.2 (25.0-35.0) pg MCHC 32.0 (31.0-37.0) g/dL RDW 13.6 (11.5-15.5) % Plt Count 228 (150-450) k/uL MPV 8.3 Neutrophils % 75 % Lymphocytes % 15 % Monocytes % 5 % Eosinophils % 3 % Basophils % 0 % Neutrophils # 4.7 (1.3-7.7) k/uL Lymphocytes # 1.0 (1.0-4.8) k/uL Monocytes # 0.3 (0-1.0) k/uL Eosinophils # 0.2 (0-0.7) k/uL Basophils # 0.0 (0-0.2) k/uL Sodium 139 (137-145) mmol/L Potassium 4.8 (3.5-5.1) mmol/L Chloride 107 (98-107) mmol/L Carbon Dioxide 25 (22-30) mmol/L Anion Gap 7 mmol/L BUN 21 H (7-17) mg/dL Creatinine 1.07 H (0.52-1.04) mg/dL Est GFR (CKD-EPI)AfAm 58 (>60 ml/min/1.73 sqM) Est GFR (CKD-EPI)NonAf 51 (>60 ml/min/1.73 sqM) Glucose 225 H (74-99) mg/dL Calcium 9.1 (8.4-10.2) mg/dL Total Bilirubin 0.9 (0.2-1.3) mg/dL AST 255 H (14-36) U/L ALT 334 H (4-34) U/L Alkaline Phosphatase 276 H (38-126) U/L Total Protein 6.7 (6.3-8.2) g/dL Albumin 4.0 (3.5-5.0) g/dL Disposition Clinical Impression: Intractable back pain, Transaminitis Disposition: ADMITTED IP TO THIS [facility] Condition: Good Instructions (If sedation given, give patient instructions): Acute Low Back Pain (ED) Is patient prescribed a controlled substance at d/c from ED?: No Referrals: Rox Parmar DO [Primary Care Provider] - 1-2 days Time of Disposition: 20:13
[2020-09-16] MEDS ORDERED: HYDROmorphone 0.5 MG/0.5 ML SYRINGE IVP STA (19:47)
[2020-09-16] MEDS ORDERED: ONDANSETRON 4 MG/2 ML VIAL IVP STA (19:53)
[2020-09-16] MEDS ORDERED: IBUPROFEN 400 MG TAB PO PRN (20:14)
[2020-09-16] MEDS ORDERED: ACETAMINOPHEN TAB 325 MG TAB PO PRN (20:14)
[2020-09-16] MEDS ORDERED: LORazepam 2 MG/ML INJ IV PRN (20:14)
[2020-09-16] MEDS ORDERED: NALOXONE 0.4 MG/ML 1 ML VIAL IV PRN (20:14)
[2020-09-16] MEDS ORDERED: HYDROmorphone 0.5 MG/0.5 ML SYRINGE IVP PRN (20:14)
[2020-09-16] MEDS: SODIUM CHLORIDE 0.9% 1,000 ML IV SCH (23:29)
[2020-09-17] MEDS: HYDROmorphone 1 MG/ML 1 ML SYRINGE IVP PRN ×2 (03:27→07:54)
[2020-09-17] MEDS: ONDANSETRON 4 MG/2 ML VIAL IVP PRN ×3 (03:27→17:56)
[2020-09-17 07:21] LABS: Glucose,Whole Blood 137 mg/dL (75-99)
[2020-09-17] MEDS: PANTOPRAZOLE 40 MG/10 ML VIAL IV SCH (07:45)
[2020-09-17] MEDS ORDERED: HYDROcodone/APAP 7.5-325MG 1 EACH TAB PO PRN (08:49)
[2020-09-17] MEDS ORDERED: polyethylene glycoL 3350 17 GM POWD.PACK PO PRN (08:49)
[2020-09-17] MEDS: OXYBUTYNIN 10 MG TAB.ER.24 PO SCH (10:23)
[2020-09-17] MEDS: ATORVASTATIN 40 MG TAB PO SCH (10:23)
[2020-09-17] MEDS: MONTELUKAST 10 MG TAB PO SCH (10:23)
[2020-09-17] MEDS: METOPROLOL SUCCINATE (ER) 25 MG TAB.ER.24H PO SCH (10:23)
[2020-09-17] MEDS: MAGNESIUM OXIDE 400 MG TAB PO SCH (10:23)
[2020-09-17] MEDS: LINAGLIPTIN 5 MG TABLET PO SCH ×2 (10:23→11:20)
[2020-09-17] MEDS: amLODIPine 5 MG TAB PO SCH (10:24)
[2020-09-17] MEDS: INSULN ASP PRT/INSULIN ASPART 100 UNIT/ML 10 ML VIAL SQ SCH (10:24)
--- NOTE | 2020-09-17 10:32 | P.HPIM ---
History of Present Illness 79-year-old pleasant female came in with complaints of severe low back pain. Has been going on since last Friday progressive getting worse unable to the point that she cannot do anything and mostly bedbound located in the right lower thoracic area. Patient does have history of severe degenerative disc disease and had multiple surgeries in the past computed tomography scan of the thoracal lumbar spine was obtained which showed multilevel fractures which are mostly chronic issue and denied any weakness or tingling numbness in both legs. Patient is obese never had any sleep study. Patient was complaining of some shortness of breath denied any orthopnea or paroxysmal nocturnal dyspnea. Patient does have minimal wheeze on exam patient states she occasionally smoked and exposed to secondhand smoking denied any history of asthma may have COPD patient denied any cough at this time although patient does have chronic cough m ay be secondary to gastroesophageal reflux disease. No uterine fractures were evident on the computed tomography scan. Also weak surgery was consulted. Review of Systems REVIEW OF SYSTEMS: CONSTITUTIONAL: No fever, no malaise, no fatigue. HEENT: No recent visual problems or hearing problems. Denied any sore throat. CARDIOVASCULAR: No chest pain, orthopnea, PND, no palpitations, no syncope. PULMONARY: No shortness of breath, no cough, no hemoptysis. GASTROINTESTINAL: No diarrhea, no nausea, no vomiting, no abdominal pain. NEUROLOGICAL: No headaches, no weakness, no numbness. HEMATOLOGICAL: Denies any bleeding or petechiae. GENITOURINARY: Denies any burning micturition, frequency, or urgency. MUSCULOSKELETAL/RHEUMATOLOGICAL: As mentioned in HPI ENDOCRINE: Denies any polyuria or polydipsia. The rest of the 14-point review of systems is negative. Past Medical History Past Medical History: Atrial Fibrillation, Chest Pain / Angina, Diabetes Mellitus, Hyperlipidemia, Hypertension, Osteoarthritis (OA), Pneumonia Additional Past Medical History / Comment(s): Paroxysmal Afib, POST OP INFECTION AFTER BACK SURGERY, CHRONIC BACK PAIN FROM T8 FX, difficulty walking d/t back pain, CHRONIC PERIPHERAL LEG EDEMA, UTIs, R humerus fracture. History of Any Multi-Drug Resistant Organisms: None Reported Past Surgical History: Back Surgery, Cholecystectomy, Orthopedic Surgery Additional Past Surgical History / Comment(s): 2015 LUMBAR SURGERY, FX NOSE REPAIR, BILATERAL CATARACT SURGERY, R WRIST CARPAL TUNNEL SURGERY, kyphoplasty T8 ON 06/26/16 AND ONE BEFORE. Past Anesthesia/Blood Transfusion Reactions: No Reported Reaction Additional Past Anesthesia/Blood Transfusion Reaction / Comment(s): NEVER HAD A BLOOD TRANSFUSION. Past Psychological History: No Psychological Hx Reported Additional Psychological History / Comment(s): PT LIVES ALONE IN A [place] FLOOR [place]. SHE IS INDEPENDENT. SHE DRIVES A CAR. Smoking Status: Never smoker Past Alcohol Use History: None Reported Past Drug Use History: None Reported - Past Family History Father Family Medical History: Myocardial Infarction ([place]) Additional Family Medical History / Comment(s): FATHER AT AGE 52 OF AN [place] Mother Additional Family Medical History / Comment(s): MOTHER AT AGE 89 OF CELEBREX PROBLEM. Medications and Allergies Home Medications Medication Instructions Recorded Confirmed Type Oxybutynin Chloride [Oxybutynin 10 mg PO DAILY 12/04/17 09/16/20 History Chloride ER] glipiZIDE XL [Glucotrol XL] 5 mg PO DAILY 12/04/17 09/16/20 History amLODIPine [Norvasc] 5 mg PO DAILY 04/09/18 09/16/20 History sitaGLIPtin [Januvia] 100 mg PO DAILY 04/09/18 09/16/20 History Biotin 5,000 mcg PO DAILY 03/28/19 09/16/20 History Furosemide [Lasix] 40 mg PO DAILY 03/28/19 09/16/20 History Montelukast [Singulair] 10 mg PO DAILY 03/28/19 09/16/20 History Atorvastatin [Lipitor] 40 mg PO DAILY 04/09/19 09/16/20 History Omeprazole 40 mg PO DAILY 07/10/19 09/16/20 History Cyclobenzaprine [Flexeril] 10 mg PO BID PRN 7 Days #14 tab 09/16/20 09/16/20 Rx Insulin Lispro Protamin/Lispro 20 unit SQ DAILY 09/16/20 09/16/20 History [humaLOG Mix 75-25 Kwikpen] Losartan Potassium 50 mg PO DAILY 09/16/20 09/16/20 History Magnesium Oxide 400 mg PO DAILY 09/16/20 09/16/20 History Metoprolol Succinate [Toprol XL] 25 mg PO DAILY 09/16/20 09/16/20 History Rivaroxaban [Xarelto] 20 mg PO DAILY 09/16/20 09/16/20 History Allergies Allergy/AdvReac Type Severity Reaction Status Date / Time tetracycline Allergy Unknown Verified 09/16/20 20:30 fentanyl AdvReac "IN Verified 09/16/20 20:30 ANOTHER PLANET, DIDNT KNOW WHERE SHE WAS" morphine AdvReac Nausea & Verified 09/16/20 20:30 Vomiting Physical Exam Vitals: Vital Signs Temp Pulse Pulse Resp BP BP Pulse Ox 09/17/20 04:26 97.7 F 75 16 124/79 96 09/16/20 21:10 74 18 147/86 98 09/16/20 19:43 79 16 129/82 97 09/16/20 18:06 98 F 111 H 22 142/85 100 Intake and Output 09/16/20 09/17/20 09/17/20 22:59 06:59 14:59 Intake Total 995 Output Total 100 Balance 895 Intake: Intake, IV Titration 675 Amount Sodium Chloride 0.9% 1, 675 000 ml @ 75 mls/hr IV . [id number] Rx#:[id number] Oral 320 Output: Emesis 100 Other: # Voids 1 Weight 121.563 kg PHYSICAL EXAMINATION: GENERAL: The patient is alert and oriented x3, not in any acute distress. Well developed, well nourished. HEENT: Pupils are round and equally reacting to light. EOMI. No scleral icterus. No conjunctival pallor. Normocephalic, atraumatic. No pharyngeal erythema. No thyromegaly. CARDIOVASCULAR: S1 and S2 present. No murmurs, rubs, or gallops. PULMONARY: Mild bilateral rhonchi and mild expiratory wheezing ABDOMEN: Soft, nontender, nondistended, normoactive bowel sounds. No palpable organomegaly. MUSCULOSKELETAL: She and has mild tenderness in the right lower thoracic paraspinal area. She and has previous surgical scars from lower lumbar fusion surgery. EXTREMITIES: No cyanosis, clubbing, or pedal edema. NEUROLOGICAL: Gross neurological examination did not reveal any focal deficits. SKIN: No rashes. Results CBC & Chem 7: 09/16/20 18:50 09/16/20 18:50 Labs: Abnormal Lab Results - Last 24 Hours (Table) 09/16/20 09/17/20 Range/Units 18:50 07:20 BUN 21 H (7-17) mg/dL Creatinine 1.07 H (0.52-1.04) mg/dL Glucose 225 H (74-99) mg/dL POC Glucose (mg/dL) 137 H (75-99) mg/dL AST 255 H (14-36) U/L ALT 334 H (4-34) U/L Alkaline Phosphatase 276 H (38-126) U/L Thrombosis Risk Factor Assmnt - Choose All That Apply Each Factor Represents 1 point: Obesity (BMI >25) Each Risk Factor Represents 3 Points: Age 75 years or older Other congenital or acquired thrombophilia - If yes, enter type in comment: No Thrombosis Risk Factor Assessment Total Risk Factor Score: 4 Thrombosis Risk Factor Assessment Level: Moderate Risk Assessment and Plan Plan: -Severe uncontrolled back pain: Secondary to degenerative disc disease and patient had multiple thoracolumbar vertebral fractures which are chronic. Patient was started on nonsteroidal anti-vomitus without monitoring of kidney function as her creatinine is 1.1 presently GI prophylaxis with Protonix patient will be started on [place] try to avoid Dilaudid. Pain management will be consulted. Physical therapy at patient's IV was consulted. -possible COPD never diagnosed patient will be started on inhaled steroids and inhalational treatments. -Type 2 diabetes mellitus: Patient was started on her Januvia and is 7030 hold off rest of the oral hypoglycemic agents, continue with sliding scale insulin -Atrial fibrillation or paroxysmal presently sinus rhythm: Presently rate controlled patient is an anti-correlation which will be held until pain management evaluates the patient it doesn't appear that epidural steroid injection will help her but I will continue to hold her anti-correlation and 11 she is evaluated by paint trimmer pipe bowls -Hyperlipidemia next and-hypertension DVT prophylaxis with subcutaneous heparin for now. GI prophylaxis with Protonix
[2020-09-17] MEDS: KETOROLAC 15 MG/ML 1 ML VIAL IVP PRN ×3 (10:33→23:27)
[2020-09-17] MEDS: SODIUM CHLORIDE 0.9% 1,000 ML IV SCH (11:09)
[2020-09-17] MEDS: BUDESONIDE 0.5 MG/2 ML NEBU INHALATION SCH (20:33)
[2020-09-17 20:55] LABS: Glucose,Whole Blood 146 mg/dL (75-99)
[2020-09-17] MEDS: HEPARIN SODIUM,PORCINE 5,000 UNIT/ML 1 ML VIAL SQ SCH (21:26)
[2020-09-17] MEDS: CYCLOBENZAPRINE 10 MG TAB PO PRN (21:32)
--- NOTE | 2020-09-17 22:03 | P.CNOR ---
History of Present Illness - [facility] Consult date: 09/17/20 Consult reason: back pain History of present illness: Patient is a 79-year-old female with history of chronic back pain who was admitted through the Emergency Department last evening with a chief complaint of back pain. Patient reports her symptoms started approximately one week ago and they have been gradually increasing severity. She states it worsens with standing or sitting up for 4-5 minutes. She develops spasms in her back. Patient reports the pain is mostly located in the right thoracic region without radiation. Patient reports this is what her typical pain feels like. States she took Lawrence at home that is prescribed to her primary care physician and it is not helping with the pain. Patient reports she cannot stand or even ambulate due to the pain. She denies numbness, tingling, weakness, saddle anesthesia, loss of bowel or bladder or other complaints. She denies any chest pain, new shortness of breath, fever or chills. She has had multiple procedures in the past including an interbody cage at L4-5 and vertebroplasties in the thoracic spine. Review of Systems All systems: negative Constitutional: Denies chills, Denies fever Eyes: denies blurred vision, denies pain Ears, nose, mouth and throat: Denies headache, Denies sore throat Cardiovascular: Denies chest pain, Denies shortness of breath Respiratory: Denies cough Gastrointestinal: Denies abdominal pain, Denies diarrhea, Denies nausea, Denies vomiting Genitourinary: Denies dysuria, Denies hematuria Musculoskeletal: Denies myalgias Integumentary: Denies pruritus, Denies rash Neurological: Denies numbness, Denies weakness Psychiatric: Denies anxiety, Denies depression Endocrine: Denies fatigue, Denies weight change Past Medical History Past Medical History: Atrial Fibrillation, Chest Pain / Angina, Diabetes Mellitus, Hyperlipidemia, Hypertension, Osteoarthritis (OA), Pneumonia Additional Past Medical History / Comment(s): Paroxysmal Afib, POST OP INFECTION AFTER BACK SURGERY, CHRONIC BACK PAIN FROM T8 FX, difficulty walking d/t back pain, CHRONIC PERIPHERAL LEG EDEMA, UTIs, R humerus fracture. History of Any Multi-Drug Resistant Organisms: None Reported Past Surgical History: Back Surgery, Cholecystectomy, Orthopedic Surgery Additional Past Surgical History / Comment(s): 2015 LUMBAR SURGERY, FX NOSE REPAIR, BILATERAL CATARACT SURGERY, R WRIST CARPAL TUNNEL SURGERY, kyphoplasty T8 ON 06/26/16 AND ONE BEFORE. Past Anesthesia/Blood Transfusion Reactions: No Reported Reaction Additional Past Anesthesia/Blood Transfusion Reaction / Comm: NEVER HAD A BLOOD TRANSFUSION. Past Psychological History: No Psychological Hx Reported Additional Psychological History / Comment(s): PT LIVES ALONE IN A [place]. SHE IS INDEPENDENT. SHE DRIVES A CAR. Smoking Status: Never smoker Past Alcohol Use History: None Reported Past Drug Use History: None Reported - Past Family History Father Family Medical History: Myocardial Infarction ([place]) Additional Family Medical History / Comment(s): FATHER AT AGE 52 OF AN [place] Mother Additional Family Medical History / Comment(s): MOTHER AT AGE 89 OF CELEBREX PROBLEM. Medications and Allergies Home Medications Medication Instructions Recorded Confirmed Type Oxybutynin Chloride [Oxybutynin 10 mg PO DAILY 12/04/17 09/16/20 History Chloride ER] glipiZIDE XL [Glucotrol XL] 5 mg PO DAILY 12/04/17 09/16/20 History amLODIPine [Norvasc] 5 mg PO DAILY 04/09/18 09/16/20 History sitaGLIPtin [Januvia] 100 mg PO DAILY 04/09/18 09/16/20 History Biotin 5,000 mcg PO DAILY 03/28/19 09/16/20 History Furosemide [Lasix] 40 mg PO DAILY 03/28/19 09/16/20 History Montelukast [Singulair] 10 mg PO DAILY 03/28/19 09/16/20 History Atorvastatin [Lipitor] 40 mg PO DAILY 04/09/19 09/16/20 History Omeprazole 40 mg PO DAILY 07/10/19 09/16/20 History Cyclobenzaprine [Flexeril] 10 mg PO BID PRN 7 Days #14 tab 09/16/20 09/16/20 Rx Insulin Lispro Protamin/Lispro 20 unit SQ DAILY 09/16/20 09/16/20 History [humaLOG Mix 75-25 Kwikpen] Losartan Potassium 50 mg PO DAILY 09/16/20 09/16/20 History Magnesium Oxide 400 mg PO DAILY 09/16/20 09/16/20 History Metoprolol Succinate [Toprol XL] 25 mg PO DAILY 09/16/20 09/16/20 History Rivaroxaban [Xarelto] 20 mg PO DAILY 09/16/20 09/16/20 History Allergies Allergy/AdvReac Type Severity Reaction Status Date / Time tetracycline Allergy Unknown Verified 09/16/20 20:30 fentanyl AdvReac "IN Verified 09/16/20 20:30 ANOTHER PLANET, DIDNT KNOW WHERE SHE WAS" morphine AdvReac Nausea & Verified 09/16/20 20:30 Vomiting Physical Examination GEN: NAD, MAA, AO x 5 Exam of the back reveals no dimples, patches, lacerations, or abrasions. Well healed surgical scar. No fluid collection. Non-tender to palpation over the midline. There is some paravertebral spasm. Motion of the lumbar spine reveals flexion is to 40 degrees and extension is to 0 degrees. No pain on internal or external rotation of bilateral hips. Right Lower extremity: Motor strength of the lower extremity is 5/5 including dorsiflexion, plantar flexion, extensor hallucis longus, hip flexion, knee extension abduction and adduction. L2-S1 dermatomes intact to light touch. Negative straightleg raise. No pathologic reflexes Left Lower extremity: Motor strength of the lower extremity is 5/5 including dorsiflexion, plantar flexion, extensor hallucis longus, hip flexion, knee extension abduction and adduction. L2-S1 dermatomes intact to light touch. Negative straightleg raise. No pathologic reflexes Results There are multiple mild compression fractures in the thoracic and lumbar spine where there are multiple previous vertebroplasties in the thoracic spine. There is no retropulsion, significant stenosis or cord compression seen on CT. There is also an interbody cage at L4-5 which appears stable. There is multilevel DDD and degenerative scoliosis of the thoracolumbar spine. - Labs Labs: Abnormal Lab Results - Last 24 Hours (Table) 09/17/20 09/17/20 Range/Units 07:20 20:50 POC Glucose (mg/dL) 137 H 146 H (75-99) mg/dL H & H 09/16/20 Range/Units 18:50 Hgb 13.2 (11.4-16.0) gm/dL Hct 41.4 (34.0-46.0) % Result Diagrams: 09/16/20 18:50 09/16/20 18:50 - Diagnostic results CT Scan - lumbar: report reviewed, image reviewed Assessment and Plan (1) Compression fracture Narrative/Plan: Patient has acute on chronic back pain in the thoracic and lumbar spine without radiculopathy or neural compromise. She has multiple compression fractures, along with DDD and degenerative scoliosis. She has had previous spine proce dures. Recommend initial pain and spasm control with oral meds. Also recommend utilizing TL orthotic brace when out of bed. Will discuss with Dr. De Paz and request his further recommendations. Current Visit: Yes Status: Acute Priority: Medium Code(s): PCS3216 - SNOMED Code(s): 634239005 (2) Intractable back pain Current Visit: Yes Status: Acute Priority: Medium Code(s): M54.9 - DORSALGIA, UNSPECIFIED SNOMED Code(s): 179119174 (3) Acute thoracic back pain Current Visit: No Status: Acute Priority: Medium Code(s): M54.6 - PAIN IN THORACIC SPINE SNOMED Code(s): 484490898 (4) Back pain Current Visit: No Status: Acute Priority: Medium Code(s): M54.9 - DORSALGIA, UNSPECIFIED SNOMED Code(s): 440473759 Time with Patient: Less than 30
[2020-09-18] MEDS: SODIUM CHLORIDE 0.9% 1,000 ML IV SCH (01:12)
[2020-09-18] MEDS: ONDANSETRON 4 MG/2 ML VIAL IVP PRN (05:53)
[2020-09-18] MEDS: KETOROLAC 15 MG/ML 1 ML VIAL IVP PRN ×4 (05:56→23:47)
[2020-09-18 07:07] LABS: Glucose,Whole Blood 163 mg/dL (75-99)
[2020-09-18] MEDS: BUDESONIDE 0.5 MG/2 ML NEBU INHALATION SCH ×2 (07:39→19:42)
[2020-09-18] MEDS: IPRATROPIUM-ALBUTEROL 3 ML NEB INHALATION PRN ×2 (07:39→19:42)
[2020-09-18] MEDS: INSULN ASP PRT/INSULIN ASPART 100 UNIT/ML 10 ML VIAL SQ SCH (07:50)
[2020-09-18] MEDS: PANTOPRAZOLE 40 MG/10 ML VIAL IV SCH (07:51)
[2020-09-18] MEDS: HEPARIN SODIUM,PORCINE 5,000 UNIT/ML 1 ML VIAL SQ SCH ×2 (07:51→20:32)
[2020-09-18] MEDS: amLODIPine 5 MG TAB PO SCH (07:51)
[2020-09-18] MEDS: OXYBUTYNIN 10 MG TAB.ER.24 PO SCH (07:52)
[2020-09-18] MEDS: ATORVASTATIN 40 MG TAB PO SCH (07:52)
[2020-09-18] MEDS: LINAGLIPTIN 5 MG TABLET PO SCH (07:52)
[2020-09-18] MEDS: METOPROLOL SUCCINATE (ER) 25 MG TAB.ER.24H PO SCH (07:52)
[2020-09-18] MEDS: MAGNESIUM OXIDE 400 MG TAB PO SCH (07:52)
[2020-09-18] MEDS: MONTELUKAST 10 MG TAB PO SCH (07:52)
--- NOTE | 2020-09-18 09:24 | P.CONS ---
History of Present Illness - Reason for Consult Consult date: 09/18/20 - Chief Complaint mid and lower back pain on the left side - History of Present Illness this is a 79-year-old morbidly obese lady with history of diabetes, atrial fibrillation with treatment with Xarelto and history of multiple vertebral compression fractures. She had surgery on her lumbar spine about 7-8 years ago. She has been getting mostly axial back pain with exacerbations the last one re sulted in right shoulder pain, right thoracic paravertebral area pain and also pain in the lumbar paravertebral area on the right side. Her rightshoulder pain has been improving however she has an area on the upper lumbar and lower thoracic.the patient denies any weakness or paresthesia in the lower extremities or any pain.her pain gets worse with standing and sitting for too long. By physical exam she is alert oriented 3 in no apparent distress however her pain gets worse when she moves in bed.positive tenderness in the upper lumbar and lower thoracic paravertebral area on the right side. There is skin erythema from previous use of TENS unit. Neuro exam of the lower extremities showed n ormal and symmetrical muscle strength. The patient may benefit from getting upper lumbar and lower thoracic medial branch block under fluoroscopic guidance however she states that she had injections before with no improvement in her pain. She is also on Xarelto and we have to hold Xarelto for 72 hours before we do any injections on the spine. For the above-mentioned reasons I think it is better for her to try oral steroids in decreasing doses for the time being with close monitoring of her bl ood sugar levels. I will leave the choice of the oral steroids and the dose to the admitting service. I thank you for the consultation Past Medical History Past Medical History: Atrial Fibrillation, Chest Pain / Angina, Diabetes Mellitus, Hyperlipidemia, Hypertension, Osteoarthritis (OA), Pneumonia Additional Past Medical History / Comment(s): Paroxysmal Afib, POST OP INFECTION AFTER BACK SURGERY, CHRONIC BACK PAIN FROM T8 FX, difficulty walking d/t back pain, CHRONIC PERIPHERAL LEG EDEMA, UTIs, R humerus fracture. History of Any Multi-Drug Resistant Organisms: None Reported Past Surgical History: Back Surgery, Cholecystectomy, Orthopedic Surgery Additional Past Surgical History / Comment(s): 2015 LUMBAR SURGERY, FX NOSE REPAIR, BILATERAL CATARACT SURGERY, R WRIST CARPAL TUNNEL SURGERY, kyphoplasty T8 ON 06/26/16 AND ONE BEFORE. Past Anesthesia/Blood Transfusion Reactions: No Reported Reaction Additional Past Anesthesia/Blood Transfusion Reaction / Comm: NEVER HAD A BLOOD TRANSFUSION. Past Psychological History: No Psychological Hx Reported Additional Psychological History / Comment(s): PT LIVES ALONE IN A [place]. SHE IS INDEPENDENT. SHE DRIVES A CAR. Smoking Status: Never smoker Past Alcohol Use History: None Reported Past Drug Use History: None Reported - Past Family History Father Family Medical History: Myocardial Infarction ([place]) Additional Family Medical History / Comment(s): FATHER AT AGE 52 OF AN [place] Mother Additional Family Medical History / Comment(s): MOTHER AT AGE 89 OF CELEBREX PROBLEM. Medications and Allergies Home Medications Medication Instructions Recorded Confirmed Type Oxybutynin Chloride [Oxybutynin 10 mg PO DAILY 12/04/17 09/16/20 History Chloride ER] glipiZIDE XL [Glucotrol XL] 5 mg PO DAILY 12/04/17 09/16/20 History amLODIPine [Norvasc] 5 mg PO DAILY 04/09/18 09/16/20 History sitaGLIPtin [Januvia] 100 mg PO DAILY 04/09/18 09/16/20 History Biotin 5,000 mcg PO DAILY 03/28/19 09/16/20 History Furosemide [Lasix] 40 mg PO DAILY 03/28/19 09/16/20 History Montelukast [Singulair] 10 mg PO DAILY 03/28/19 09/16/20 History Atorvastatin [Lipitor] 40 mg PO DAILY 04/09/19 09/16/20 History Omeprazole 40 mg PO DAILY 07/10/19 09/16/20 History Cyclobenzaprine [Flexeril] 10 mg PO BID PRN 7 Days #14 tab 09/16/20 09/16/20 Rx Insulin Lispro Protamin/Lispro 20 unit SQ DAILY 09/16/20 09/16/20 History [humaLOG Mix 75-25 Kwikpen] Losartan Potassium 50 mg PO DAILY 09/16/20 09/16/20 History Magnesium Oxide 400 mg PO DAILY 09/16/20 09/16/20 History Metoprolol Succinate [Toprol XL] 25 mg PO DAILY 09/16/20 09/16/20 History Rivaroxaban [Xarelto] 20 mg PO DAILY 09/16/20 09/16/20 History Allergies Allergy/AdvReac Type Severity Reaction Status Date / Time tetracycline Allergy Unknown Verified 09/16/20 20:30 fentanyl AdvReac "IN Verified 09/16/20 20:30 ANOTHER PLANET, DIDNT KNOW WHERE SHE WAS" morphine AdvReac Nausea & Verified 09/16/20 20:30 Vomiting Physical Exam Vitals: Vital Signs Temp Pulse Pulse Resp BP Pulse Ox 09/18/20 07:56 82 09/18/20 07:39 80 09/18/20 04:37 97.8 F 93 16 129/83 93 L 09/17/20 20:35 97.5 F L 79 16 111/71 96 09/17/20 12:09 97.4 F L 70 17 117/70 97 09/17/20 10:30 97 119/60 Intake and Output 09/17/20 09/18/20 09/18/20 22:59 06:59 14:59 Intake Total 600 1400 Output Total 550 Balance 600 850 Intake: Intake, IV Titration 600 900 Amount Sodium Chloride 0.9% 1, 600 900 000 ml @ 75 mls/hr IV . [id number] [facility] Rx#:[id number] Oral 500 Output: Urine 550 Other: Voiding Method Toilet Results CBC & Chem 7: 09/16/20 18:50 09/16/20 18:50 Labs: Abnormal Lab Results - Last 24 Hours (Table) 09/17/20 09/18/20 Range/Units 20:50 07:06 POC Glucose (mg/dL) 146 H 163 H (75-99) mg/dL
[2020-09-18 09:32] LABS: African American GFR (CKD) 62.9 (60.0-200.0); Anion Gap 4.8 mmol/L (4.00-12.00); Calcium 8.9 mg/dL (8.7-10.3); Carbon Dioxide 25.2 mmol/L (21.6-31.8); Non-African American GFR(CKD) 54.3 (60.0-200.0); Potassium 5.2 mmol/L (3.5-5.5)
[2020-09-18] MEDS: diazePAM 2 MG TAB PO PRN (10:24)
--- NOTE | 2020-09-18 10:28 | P.PN ---
Progress Note - Text Progress Note Date: 09/18/20 Orthopedic spine: History of present illness: Patient is a pleasant 79-year-old female well-known to our service was seen and examined for follow-up evaluation in regards to her back pain. Patient states she has been experiencing worsening thoracic back pain over the past several days. She states she has chronic thoracic back pain over the past 40 years. The symptoms are not new for her. She does have history of multiple compression fracture deformities with kyphoplasty at T6, T8, T9, and T10. Previous kyphoplasty at T8 and T9 was performed by Dr. Rex De Paz with the most recent 2016. More recently she has undergone kyphoplasty at T6 and T9 along with lumbar interbody fusion at L4-5. She is unsure who performed these surgeries. She has a long-standing history of following with pain management. She's undergone treatment with pain management [facility], [facility], and a pain clinic [address] She states she has taken Percocet, [place], Valium, and cyclobenzaprine over the years without s ignificant control of her symptoms. She is currently using a heating pad and a TENS unit over her thoracic spine. She denies any low back pain. She denies any lower extremity weakness or radiculopathy bilaterally. She was seen and examined by pain management this morning who recommended injections but she declined as she states she had injections previously without significant benefit. I have recommended steroid medications. She is being seen by medicine as well. Patient's past medical history includes atrial fibrillation, diabetes mellitus, hyperlipidemia, and hypertension. Patient does take Xarelto in the outpatient setting for anticoagulation. Physical exam: Patient is awake, alert, and oriented 3 Vital signs stable Good chest excursion with deep inspiration and expiration Abdomen soft nontender Examination thoracic spine shows significant skin changes with erythema ab-igne along the midline of the mid thoracic spine and over the right paraspinal mus cles of the thoracic spine Some pain with palpation along the midline of the mid thoracic spine No pain with palpation along the lumbar spine Examination of lumbar spine reveals skin is intact with no abrasions, lacerations, or bruises; no erythema, purulence or signs of infection Evidence of a well-healed incision along the midline of the lower lumbar spine Dorsiflexion, plantarflexion, and extensor hallucis longus positive sustained bilaterally Lower extremity strength 5/5 bilaterally No lower extremity hyperreflexia bilaterally Straight leg test negative bilateral lower extremities Negative Lasegue's test bilaterally No signs or symptoms of DVT; no calf pain No pain with internal and external rotation of the hips bilaterally Neurovascularly intact Pertinent studies: CT of the thoracic and lumbar spine taken on 09/16/2020: Evidence of multiple compression fracture deformities with evidence of kyphoplasty at T6, T8, T9, and T10; compression fracture deformities at L1 with approximately 25% height loss and L3 with approximately 15% height loss; evidence of interbody fusion device at L4-5; reports states L1 compression fracture could be relatively acute as compared to previous imaging taken from 12/26/2014 and 07/10/2016; no evidence of acute thoracic compression fracture deformity Assessment: Chronic midthoracic back pain Chronic thoracic muscle spasm Chronic heating pad in TENS unit use Evidence of erythema ab-igne of the mid thoracic spine and paraspinals History of kyphoplasty at T6, T8, T9, and T10 History of L4-5 lumbar interbody fusion Atrial fibrillation Diabetes mellitus Hyperlipidemia Hypertension Outpatient anticoagulation use with Xarelto Plan: 1. Patient has been discussed in detail with Dr. Rex De Paz and we have reviewed the imaging together. Patient has a significant medical history and has undergone multiple surgeries at her thoracic spine with kyphoplasty pe rformed at T6, T8, T9, and T10. Reviewing the images does not show any evidence of acute thoracic compression fracture deformity. She does have some compression fracture deformity at L1 and L3 of indeterminate age. Patient is not experiencing any low back pain. She has not had any recent injuries. She states her symptoms are chronic and have been ongoing for the past 40 years. Her pain is most significant at the mid thoracic spine and over the paraspinal muscles. She has chronically been using a heating pad and a TENS unit. She does have skin changes at her thoracic spine from the heating pad use. She has worked through pain management with multiple different providers at [facility], [facility], and another pain clinic [address] [place]. She has taken multiple pain medications including Percocet and [place] for pain control. She has also been prescribed Valium and cyclobenzaprine. She was seen and examined by pain management today and dec lined further injections. They have discussed the possibility of a prescribing steroids. At this time, we are not currently planning to obtain further imaging at her thoracic or lumbar spines. Based on the patient's symptoms, it seems her compression fracture forms at L1 and L3 are chronic in nature. She is not currently experiencing any lumbar back pain. Her pain continues to be significant in chronic at her thoracic spine and has been ongoing for a number of years. Reviewing of imaging shows her multiple previous kyphoplasty at T6, T8, T9, and T10 without evidence of acute thoracic compression fracture deformity. We would recommend her exhausting all conservative treatment options. She was previously prescribed a brace which she has but states it does not provide any improvement or control of her symptoms. We discussed we would not plan for acute surgical intervention in regards to her thoracic or lumbar spine. She is encouraged to continue following medicine and pain management for treatment and evaluation. We did discuss she could benefit from further injections from pain management as they may try different injections or different approach as compared to the previous injection she may have had. She may also plan to proceed forward with prednisone as discussed by pain management. At this time, patient is clear for discharge from an orthopedic spine standpoint. She may plan a follow-up and outpatient setting on an as- needed basis. 2. Patient will continue seeing examined by medicine for her other medical diagnoses 3. Patient will continue to be seen and examined by pain management and patient may proceed forward with treatment with pain management as needed
[2020-09-18 11:39] LABS: Glucose,Whole Blood 106 mg/dL (75-99)
[2020-09-18] MEDS: predniSONE 20 MG TAB PO SCH (12:31)
[2020-09-18] MEDS: CYCLOBENZAPRINE 10 MG TAB PO PRN (13:45)
--- NOTE | 2020-09-18 15:55 | P.PN ---
Subjective Progress Note Date: 09/18/20 79-year-old pleasant female came in with complaints of severe low back pain. Has been going on since last Friday progressive getting worse unable to the point that she cannot do anything and mostly bedbound located in the right lower thoracic area. Patient does have history of severe degenerative disc disease and had multiple surgeries in the past computed tomography scan of the thoracal lumbar spine was obtained which showed multilevel fractures which are mostly chronic issue and denied any weakness or tingling numbness in both legs. Patient is obese never had any sleep study. Patient was complaining of some shortness of breath denied any orthopnea or paroxysmal nocturnal dyspnea. Patient does have minimal wheeze on exam patient states she occasionally smoked and exposed to secondhand smoking denied any history of asthma may have COPD patient denied any cough at this time although patient does have chronic cough may be secondary to gastroesophageal reflux disease. No uterine fractures were evident on the computed tomography scan. Orthopedic surgery was consulted. 09/18/2020 Patient is seen in follow-up this morning continues to have severe 10 out of 10 back pain in the thoracic area. Patient has been seen by orthopedic surgery along with pain management and considering conservative management with no surgical interventions at this time. Dural injections offered along with TLSO brace although patient has refused. Patient was started on a prednisone taper and will continue to monitor for pain relief along with continue to monitor Accu-Cheks before meals and at bedtime and treat accordingly. NovoLog 70/30 has been adjusted. Patient was able to work with PT/OT therapy and able to walk the halls. Patient states after getting up from the bed and walking patient retur mayito with more severe spasms and increasing back pain. Creatinine today is 1.0 and will discontinue IV fluids. Review of systems: Constitutional: No reports of fatigue, fever, or chills Cardiovascular: No reports of chest pain or palpitations Respiratory: No reports of shortness of breath or cough GI: No reports of nausea, vomiting, or diarrhea : No reports of dysuria or retention Neurovascular: No reports of weakness or numbness, reports continued back spasms and back pain in the thoracic area All medications have been reviewed Objective - Vital Signs Vital signs: Vital Signs Temp 98.5 F 09/18/20 12:30 Pulse 89 09/18/20 12:30 Resp 20 09/18/20 12:30 BP 128/69 09/18/20 12:30 Pulse Ox 91 L 09/18/20 12:30 Intake & Output 09/17/20 09/18/20 09/18/20 18:59 06:59 18:59 Intake Total 840 1400 Output Total 550 Balance 840 850 Intake: Intake, IV Titration 600 900 Amount Sodium Chloride 0.9% 1, 600 900 000 ml @ 75 mls/hr IV . [id number] [facility] Rx#:[id number] Oral 240 500 Output: Urine 550 Other: Voiding Method Toilet - Exam GENERAL: The patient is alert and oriented x3, not in any acute distress. Well developed, well nourished. HEENT: Pupils are round and equally reacting to light. EOMI. No scleral icterus. No conjunctival pallor. Normocephalic, atraumatic. No pharyngeal erythema. No thyromegaly. CARDIOVASCULAR: S1 and S2 present. No murmurs, rubs, or gallops. PULMONARY: Mild bilateral rhonchi noted ABDOMEN: Soft, obese, nontender, nondistended, normoactive bowel sounds. No pal pable organomegaly. MUSCULOSKELETAL: mild tenderness in the right lower thoracic paraspinal area. has previous surgical scars from lower lumbar fusion surgery. EXTREMITIES: No cyanosis, clubbing, or pedal edema. NEUROLOGICAL: Gross neurological examination did not reveal any focal deficits. SKIN: No rashes. - Labs CBC & Chem 7: 09/16/20 18:50 09/18/20 05:53 Labs: Abnormal Lab Results - Last 24 Hours (Table) 09/17/20 09/18/20 09/18/20 Range/Units 20:50 05:53 07:06 Chloride 111 H (96-109) mmol/L Est GFR (CKD-EPI)NonAf 54.3 L (60.0-200.0) Glucose 138 H (70-110) mg/dL POC Glucose (mg/dL) 146 H 163 H (75-99) mg/dL 09/18/20 Range/Units 11:38 Chloride (96-109) mmol/L Est GFR (CKD-EPI)NonAf (60.0-200.0) Glucose (70-110) mg/dL POC Glucose (mg/dL) 106 H (75-99) mg/dL Assessment and Plan Assessment: -Severe uncontrolled back pain: Secondary to degenerative disc disease and patient had multiple thoracolumbar vertebral fractures which are chronic. Patient was started on NSAIDs without monitoring of kidney function as her creatinine is 1.0 today. She does have Hickman along with Toradol and Flexeril an d will start oral steroids. Orthopedic surgery following recommending possible TLSO and medical management although patient is refusing brace at this time. Pain management following an patient is refusing steroid injection stating they have not worked in the past. -possible COPD never diagnosed patient will be started on inhaled steroids and inhalational treatments. -Type 2 diabetes mellitus: Patient was started on her Januvia and 70/30 and continue to monitor Accu-Cheks before meals and at bedtime as blood sugars expected to rise with initiating steroids -Atrial fibrillation or paroxysmal presently sinus rhythm: Presently rate controlled patient is on anticoagulation which was held and will resume once discharged as she is refusing epidural injections, continue with subcutaneous heparin -Hyperlipidemia -hypertension -DVT prophylaxis with subcutaneous heparin for now -GI prophylaxis with Protonix
[2020-09-18 16:51] LABS: Glucose,Whole Blood 177 mg/dL (75-99)
[2020-09-18] MEDS: HYDROmorphone 1 MG/ML 1 ML SYRINGE IVP PRN (20:31)
[2020-09-18 20:48] VITALS: RESP 18
[2020-09-18 20:49] LABS: Glucose,Whole Blood 255 mg/dL (75-99)
[2020-09-19] MEDS: HYDROmorphone 1 MG/ML 1 ML SYRINGE IVP PRN (02:11)
[2020-09-19] MEDS: KETOROLAC 15 MG/ML 1 ML VIAL IVP PRN ×2 (05:26→11:32)
[2020-09-19 07:15] LABS: Glucose,Whole Blood 153 mg/dL (75-99)
[2020-09-19] MEDS ORDERED: INSULN ASP PRT/INSULIN ASPART 100 UNIT/ML 10 ML VIAL SQ SCH (07:30)
[2020-09-19] MEDS ORDERED: PANTOPRAZOLE 40 MG TABLET PO SCH (07:30)
[2020-09-19] MEDS: IPRATROPIUM-ALBUTEROL 3 ML NEB INHALATION PRN (08:25)
[2020-09-19] MEDS: BUDESONIDE 0.5 MG/2 ML NEBU INHALATION SCH (08:25)
[2020-09-19] MEDS: MONTELUKAST 10 MG TAB PO SCH (08:46)
[2020-09-19] MEDS: OXYBUTYNIN 10 MG TAB.ER.24 PO SCH (08:46)
[2020-09-19] MEDS: LINAGLIPTIN 5 MG TABLET PO SCH (08:47)
[2020-09-19] MEDS: MAGNESIUM OXIDE 400 MG TAB PO SCH (08:47)
[2020-09-19] MEDS: amLODIPine 5 MG TAB PO SCH (08:47)
[2020-09-19] MEDS: METOPROLOL SUCCINATE (ER) 25 MG TAB.ER.24H PO SCH (08:48)
[2020-09-19] MEDS: ATORVASTATIN 40 MG TAB PO SCH (08:49)
[2020-09-19] MEDS: HEPARIN SODIUM,PORCINE 5,000 UNIT/ML 1 ML VIAL SQ SCH (08:50)
[2020-09-19] MEDS: predniSONE 20 MG TAB PO SCH (08:50)
[2020-09-19 10:18] LABS: Potassium 4.4 mmol/L (3.5-5.1)
[2020-09-19 10:19] LABS: ALT 220 U/L (4-34); AST 52 U/L (14-36); African American GFR (CKD) 62 (>60 ml/min/1.73 sqM); Alkaline Phosphatase 230 U/L (38-126); Anion Gap 7 mmol/L; Blood Urea Nitrogen 20 mg/dL (7-17); Calcium 8.8 mg/dL (8.4-10.2); Carbon Dioxide 24 mmol/L (22-30); Chloride 106 mmol/L (98-107); Glucose 176 mg/dL (74-99); Non-African American GFR(CKD) 54 (>60 ml/min/1.73 sqM); Sodium 137 mmol/L (137-145)
[2020-09-19 11:37] LABS: Glucose,Whole Blood 134 mg/dL (75-99)
[2020-09-19] MEDS: diazePAM 2 MG TAB PO PRN (11:41)
[2020-09-19 13:53] VITALS: BP 127/73; PULSE 90; TEMP 98
--- NOTE | 2020-09-19 16:05 | P.DS ---
Providers Date of admission: 09/19/20 08:59 Expected date of discharge: 09/19/20 Attending physician: Rodrigo Dietrich Consults: 09/16/20 20:14 Consult Physician Stat Consulting Provider: Ludin Hamilton Reason/Comments: intractable back pain Do you want consulting provider notified?: Yes Primary care physician: Rox Moreira Hospital Course: Final diagnosis -Severe uncontrolled back pain: Secondary to degenerative disc disease and patient had multiple thoracolumbar vertebral fractures which are chronic -possible COPD never diagnosed need outpatient follow-up -Type 2 diabetes mellitus -Atrial fibrillation or paroxysmal presently sinus rhythm: Presently rate controlled patient is on anticoagulation -Hyperlipidemia -hypertension -DVT prophylaxis -GI prophylaxis -Full code Discharge disposition Patient is being discharged in a stable condition with guarded prognosis to home. Patient will follow-up with Dr. Moreira in the outpatient setting upon discharge. Patient also instructed [facility] with [facility] along with pain management. Patient will continue prednisone taper upon discharge. Total time taken is greater than 35 minutes. Hospital course 79-year-old pleasant female came in with complaints of severe low back pain. Has been going on since last Friday progressive getting worse unable to the point that she cannot do anything and mostly bedbound located in the right lower thoracic area. Patient does have history of severe degenerative disc disease and had multiple surgeries in the past computed tomography scan of the thoracal lumbar spine was obtained which showed multilevel fractures which are mostly chronic issue and denied any weakness or tingling numbness in both legs. Patient is obese never had any sleep study. Patient was complaining of some shortness of breath denied any orthopnea or paroxysmal nocturnal dyspnea. Patient does have minimal wheeze on exam patient states she occasionally smoked and exposed to secondhand smoking denied any history of asthma may have COPD patient denied any cough at this time although patient does have chronic cough may be secondary to gastroesophageal reflux disease. No uterine fractures were evident on the computed tomography scan. Orthopedic surgery was consulted. 09/18/2020 Patient is seen in follow-up this morning continues to have severe 10 out of 10 back pain in the thoracic area. Patient has been seen by orthopedic surgery along with pain management and considering conservative management with no surgical interventions at this time. Dural injections offered along with TLSO brace although patient has refused. Patient was started on a prednisone taper and will continue to monitor for pain relief along with continue to monitor Accu-Cheks before meals and at bedtime and treat accordingly. NovoLog 70/30 has been adjusted. Patient was able to work with PT/OT therapy and able to walk the halls. Patient states after getting up from the bed and walking patient returned with more severe spasms and increasing back pain. Creatinine today is 1.0 and will discontinue IV fluids. 09/19/2020 Patient is seen and evaluated in follow-up stating she is ready to go home. She states she feels better although continues to have spasms with increased activity. Patient is requesting surgery to be done on her back although orthopedic surgery evaluated the patient recommending no surgical intervention at this time. Patient to follow-up outpatient to discuss further options. Patient is morbidly obese and discussed weight loss as a possible option in a ssisting with this chronic back pain. Patient will be resumed on Xarelto as she is refusing any epidural injections. Patient states she has a back brace at home that does not help. Patient instructed to follow-up with pain management along with primary care provider in the outpatient setting. Currently no reports of chest pain, shortness of breath, or palpitations. Patient is afebrile. No reports of nausea or vomiting and patient is tolerating diet. Patient will be discharged home today. On exam vital signs are stable. Cardio S1, S2 are muffled. Respiratory system shows diminished breath sounds at the bases with no wheezing or rhonchi noted. Abdomen is soft and nontender. Nervous system shows no focal deficits. Please refer to medication reconciliation sheet for a list of medications. Patient Condition at Discharge: Good Plan - Discharge Summary Discharge Rx Participant: No New Discharge Prescriptions: New polyethylene glycoL 3350 [Miralax] 17 gm PO DAILY PRN 30 Days #30 powd.pack PRN Reason: Constipation HYDROcodone/APAP 7.5-325MG [Errol 7.5-325] 1 each PO Q6H PRN #12 tab PRN Reason: Pain predniSONE 10 mg PO DIRECTED #30 tab Acetaminophen Tab [Tylenol] 650 mg PO Q6HR PRN tab PRN Reason: Mild Pain Or Fever > 100.5 Albuterol Inhaler [Ventolin Hfa Inhaler] 1 puff INHALATION Q6H 30 Days #1 puff Continue glipiZIDE XL [Glucotrol XL] 5 mg PO DAILY Oxybutynin Chloride [Oxybutynin Chloride ER] 10 mg PO DAILY amLODIPine [Norvasc] 5 mg PO DAILY sitaGLIPtin [Januvia] 100 mg PO DAILY Montelukast [Singulair] 10 mg PO DAILY Furosemide [Lasix] 40 mg PO DAILY Biotin 5,000 mcg PO DAILY Atorvastatin [Lipitor] 40 mg PO DAILY Omeprazole 40 mg PO DAILY Cyclobenzaprine [Flexeril] 10 mg PO BID PRN 7 Days #14 tab PRN Reason: Muscle Spasm Rivaroxaban [Xarelto] 20 mg PO DAILY Metoprolol Succinate [Toprol XL] 25 mg PO DAILY Magnesium Oxide 400 mg PO DAILY Changed Insulin Lispro Protamin/Lispro [humaLOG Mix 75-25 Kwikpen] 25 unit SQ DAILY #0 Discontinued Losartan Potassium 50 mg PO DAILY Discharge Medication List Oxybutynin Chloride [Oxybutynin Chloride ER] 10 mg PO DAILY 12/04/17 [History] glipiZIDE XL [Glucotrol XL] 5 mg PO DAILY 12/04/17 [History] amLODIPine [Norvasc] 5 mg PO DAILY 04/09/18 [History] sitaGLIPtin [Januvia] 100 mg PO DAILY 04/09/18 [History] Biotin 5,000 mcg PO DAILY 03/28/19 [History] Furosemide [Lasix] 40 mg PO DAILY 03/28/19 [History] Montelukast [Singulair] 10 mg PO DAILY 03/28/19 [History] Atorvastatin [Lipitor] 40 mg PO DAILY 04/09/19 [History] Omeprazole 40 mg PO DAILY 07/10/19 [History] Cyclobenzaprine [Flexeril] 10 mg PO BID PRN 7 Days #14 tab 09/16/20 [Rx] Magnesium Oxide 400 mg PO DAILY 09/16/20 [History] Metoprolol Succinate [Toprol XL] 25 mg PO DAILY 09/16/20 [History] Rivaroxaban [Xarelto] 20 mg PO DAILY 09/16/20 [History] Acetaminophen Tab [Tylenol] 650 mg PO Q6HR PRN tab 09/19/20 [Rx] Albuterol Inhaler [Ventolin Hfa Inhaler] 1 puff INHALATION Q6H 30 Days #1 puff 09/19/20 [Rx] HYDROcodone/APAP 7.5-325MG [Errol 7.5-325] 1 each PO Q6H PRN #12 tab 09/19/20 [Rx] Insulin Lispro Protamin/Lispro [humaLOG Mix 75-25 Kwikpen] 25 unit SQ DAILY #0 09/19/20 [Rx] polyethylene glycoL 3350 [Miralax] 17 gm PO DAILY PRN 30 Days #30 powd.pack 09/19/20 [Rx] predniSONE 10 mg PO DIRECTED #30 tab 09/19/20 [Rx] Follow up Appointment(s)/Referral(s): Silver Calvillo, SABINO [PHYSICIAN LACER AND TIER] - As Needed (Patient may follow-up with Silver Calvillo PA-C or Dr. Rex De Paz at [facility] on as-needed basis following discharge. ) Rox Moreira DO [Primary Care Provider] - 09/22/20 10:20 am (You will be seeing Daija the SHOW DESIGN SUPERVISOR.) [facility] [NON-STAFF] - 1 Week (Left a message with pain managment please call and make your follow up appointment.) Patient Instructions/Handouts: Hydrocodone/Acetaminophen (By mouth), Albuterol (By breathing), Prednisone (By mouth), Polyethylene Glycol 3350 (By mouth), Heart Healthy Diet (DC), Type 2 Diabetes in Adults: New Diagnosis (DC), Meal Planning with Diabetes Exchanges (DC), Acute Low Back Pain (ED) Activity/Diet/Wound Care/Special Instructions: Activity Limited until follow-up Follow-up primary care provider upon discharge Follow-up pain management outpatient Continue current heart healthy diabetic diet Continue to monitor blood sugars before meals and at bedtime closely and keep a diary for primary care follow-up Continue with prednisone taper until finished Discontinue losartan and monitor blood pressure, continue with other blood pressure medications Resume Xarelto Discharge Disposition: HOME SELF-CARE
== END 2020-09-19 15:08 | disposition home or self-care (01) | DRG 552 ==
LOC: EC 18:01 → 5NMEDONC 21:04 → OBSVTOIN 09-19 08:59
PROVIDERS: ADMIT Hospitalist; ATTEND Hospitalist
DX: M51.35 Other intervertebral disc degeneration, thoracolumbar region (principal); M48.54XA Collapsed vertebra, not elsewhere classified, thoracic region, initial encounter for fracture; Z68.43 Body mass index [BMI] 50.0-59.9, adult; M48.56XA Collapsed vertebra, not elsewhere classified, lumbar region, initial encounter for fracture; M41.85 Other forms of scoliosis, thoracolumbar region; E11.9 Type 2 diabetes mellitus without complications; E78.5 Hyperlipidemia, unspecified; I10 Essential (primary) hypertension; I48.0 Paroxysmal atrial fibrillation; K21.9 Gastro-esophageal reflux disease without esophagitis; J44.9 Chronic obstructive pulmonary disease, unspecified; E66.01 Morbid (severe) obesity due to excess calories; G89.29 Other chronic pain; M51.36 Other intervertebral disc degeneration, lumbar region; M62.830 Muscle spasm of back; Z74.01 Bed confinement status; Z82.49 Family history of ischemic heart disease and other diseases of the circulatory system; Z79.899 Other long term (current) drug therapy; Z79.4 Long term (current) use of insulin; Z79.01 Long term (current) use of anticoagulants; Z88.1 Allergy status to other antibiotic agents; Z98.1 Arthrodesis status; Z88.5 Allergy status to narcotic agent
CPT/HCPCS: 36415; 72128; 72131; 80048; 80053; 84075; 84450; 84460; 85025; 87635; 94640; 96361; 96374; 96375; 96376; 99283; 99285

== ENCOUNTER 2022-10-17 05:49 | Day surgery (SDC) | payer MEDICARE ==
[~2022-10-17 05:49] MED LIST: LACTATED RINGERS 1,000 ML IV SCH; LIDOCAINE 1% (10MG/ML) FOR IV START INTRADERMA PRN
[2022-10-17 06:30] VITALS: TEMP 97
[2022-10-17 06:48] LABS: Glucose,Whole Blood 141 mg/dL (70-110)
[2022-10-17 07:02] LABS: African American GFR (CKD) 48 (>60 ml/min/1.73 sqM); Anion Gap 7 mmol/L; Blood Urea Nitrogen 34 mg/dL (7-17); Calcium 8.9 mg/dL (8.4-10.2); Carbon Dioxide 26 mmol/L (22-30); Chloride 105 mmol/L (98-107); Glucose 150 mg/dL (74-99); Magnesium 2.3 mg/dL (1.6-2.3); Non-African American GFR(CKD) 42 (>60 ml/min/1.73 sqM); Sodium 138 mmol/L (137-145)
[2022-10-17 07:07] LABS: Potassium 4.9 mmol/L (3.5-5.1)
[2022-10-17] MEDS ORDERED: PROPOFOL 10 MG/ML 20 ML VIAL IV ONE (07:30)
[2022-10-17 08:12] LABS: T4, Free (Free Thyroxine) 1.62 ng/dL (0.78-2.19)
[2022-10-17 08:46] VITALS: BP 151/78; PULSE 52; RESP 18
[2022-10-17 09:06] LABS: Glucose,Whole Blood 99 mg/dL (70-110)
--- NOTE | 2022-10-17 11:46 | CE ---
CARDIAC ELECTROPHYSIOLOGY REPORT PROCEDURES PERFORMED: Electrical cardioversion. INDICATIONS: Persistent atrial fibrillation. CLINICAL INFORMATION: Mrs. Hortencia Mcpherson is a [id number] lady with a history of hypertension, hyperlipidemia, type 2 diabetes, noncritical CAD, obesity, and chronic back pain. She also has paroxysmal atrial fibrillation and has been in atrial fibrillation for the last 4-5 weeks. She was advised to have electrical cardioversion after trying amiodarone orally. She was brought in for the procedure electively after due discussion regarding risks, benefits, and options. PROCEDURE NOTE: Under the influence of [id number] intravenous anesthetic, with the attendance of the anesthesiologist, a single shock of 120 joules was delivered with anterior and posterior patches. Patient converted to sinus rhythm, remained hemodynamically stable and neurologically intact. This was a successful electrical cardioversion. The patient will be discharged on the same medications home and I will see her in 1 week in the office. MMJANNET / SALLYN: [id number] / MTDD
== END 2022-10-17 09:10 | disposition home or self-care (01) ==
LOC: OR 05:49
PROVIDERS: ATTEND Internal Medicine Interventional Cardiology
DX: I48.0 Paroxysmal atrial fibrillation (principal); I10 Essential (primary) hypertension; E11.9 Type 2 diabetes mellitus without complications; E78.5 Hyperlipidemia, unspecified; I25.119 Atherosclerotic heart disease of native coronary artery with unspecified angina pectoris; E66.01 Morbid (severe) obesity due to excess calories; Z68.42 Body mass index [BMI] 45.0-49.9, adult; G89.29 Other chronic pain; J18.9 Pneumonia, unspecified organism; Z79.01 Long term (current) use of anticoagulants; Z79.84 Long term (current) use of oral hypoglycemic drugs; Z79.4 Long term (current) use of insulin; Z79.52 Long term (current) use of systemic steroids; Z79.899 Other long term (current) drug therapy; Z90.49 Acquired absence of other specified parts of digestive tract; Z98.890 Other specified postprocedural states; Z88.5 Allergy status to narcotic agent; Z88.8 Allergy status to other drugs, medicaments and biological substances
CPT/HCPCS: 92960; 84439; 80048; 84443; 83735; J2704

== ENCOUNTER 2022-10-21 12:07 | Emergency (ER) | payer MEDICARE ==
[2022-10-21 12:18] VITALS: RESP 20
[2022-10-21] MEDS ORDERED: IPRATROPIUM-ALBUTEROL 3 ML NEB INHALATION STA (12:42)
--- NOTE | 2022-10-21 12:44 | ED ---
General Adult HPI - General Chief complaint: Shortness of Breath Stated complaint: Dyspnea Time Seen by Provider: 10/21/22 12:21 Source: patient, EMS, RN notes reviewed Mode of arrival: EMS Limitations: no limitations - History of Present Illness Initial comments: Patient is a pleasant 82-year-old female presenting to the emergency department with concerns for short of breath. Onset of symptoms was for 5 days ago. Patient did have a procedure for cardiac arrhythmia prior to this. Patient does have cough. No fever. No history of similar symptoms previously. No leg pain or leg swelling. - Related Data Home Medications Medication Instructions Recorded Confirmed glipiZIDE XL [Glucotrol XL] 5 mg PO DAILY 12/04/17 10/17/22 amLODIPine [Norvasc] 5 mg PO DAILY 04/09/18 10/17/22 sitaGLIPtin [Januvia] 100 mg PO DAILY 04/09/18 10/17/22 Montelukast [Singulair] 10 mg PO DAILY 03/28/19 10/17/22 Atorvastatin [Lipitor] 40 mg PO DAILY 04/09/19 10/17/22 Metoprolol Succinate [Toprol XL] 50 mg PO DAILY 09/16/20 10/17/22 Apixaban [Eliquis] 5 mg PO BID 09/04/22 10/17/22 Gabapentin 300 mg PO HS 09/04/22 10/17/22 HYDROcodone/APAP 7.5-325MG [[place] 1 tab PO BID PRN 09/04/22 10/17/22 7.5-325] Insulin Glargine,Hum.rec.anlog 10 units SQ DAILY 09/04/22 10/17/22 [Lantus Solostar Pen] Amiodarone [Cordarone] 200 mg PO BID 10/16/22 10/17/22 Meloxicam [Mobic] 15 mg PO DAILY 10/16/22 10/17/22 Tolterodine Tartrate [Tolterodine 4 mg PO DAILY 10/16/22 10/17/22 Tartrate ER] Previous Rx's Medication Instructions Recorded Cyclobenzaprine [Flexeril] 10 mg PO BID PRN 7 Days #14 tab 09/16/20 Furosemide [Lasix] 40 mg PO DAILY #30 tab 09/06/22 hydrALAZINE HCL [Apresoline] 25 mg PO BID #60 tab 09/06/22 Allergies Allergy/AdvReac Type Severity Reaction Status Date / Time tetracycline Allergy Unknown Verified 10/21/22 12:20 fentanyl AdvReac "IN Verified 10/21/22 12:20 ANOTHER PLANET, DIDNT KNOW WHERE SHE WAS" morphine AdvReac Nausea & Verified 10/21/22 12:20 Vomiting Review of Systems ROS Statement: Those systems with pertinent positive or pertinent negative responses have been documented in the HPI. ROS Other: All systems not noted in ROS Statement are negative. Constitutional: Denies: fever Eyes: Denies: eye pain ENT: Denies: ear pain Respiratory: Reports: cough, dyspnea Cardiovascular: Denies: chest pain Endocrine: Denies: fatigue Gastrointestinal: Denies: abdominal pain Genitourinary: Denies: urgency Musculoskeletal: Denies: back pain Past Medical History Past Medical History: Atrial Fibrillation, Chest Pain / Angina, Diabetes Mellitus, Hyperlipidemia, Hypertension, Osteoarthritis (OA), Pneumonia Additional Past Medical History / Comment(s): Paroxysmal Afib, POST OP INFECTION AFTER BACK SURGERY, CHRONIC BACK PAIN FROM T8 FX, CHRONIC PERIPHERAL LEG EDEMA,R humerus fracture. History of Any Multi-Drug Resistant Organisms: None Reported Past Surgical History: Back Surgery, Cholecystectomy, Orthopedic Surgery Additional Past Surgical History / Comment(s): 2015 LUMBAR SURGERY, FX NOSE REPAIR, BILATERAL CATARACT SURGERY, R WRIST CARPAL TUNNEL SURGERY, kyphoplasty T8 ON 06/26/16 AND ONE BEFORE. Past Anesthesia/Blood Transfusion Reactions: No Reported Reaction Additional Past Anesthesia/Blood Transfusion Reaction / Comment(s): NEVER HAD A BLOOD TRANSFUSION. Past Psychological History: No Psychological Hx Reported Smoking Status: Never smoker - Past Family History Father Family Medical History: Myocardial Infarction ([place]) Additional Family Medical History / Comment(s): FATHER AT AGE 52 OF AN [place] Mother Additional Family Medical History / Comment(s): MOTHER AT AGE 89 OF CELEBREX PROBLEM. General Exam Limitations: no limitations General appearance: alert, in no apparent distress Head exam: Present: normocephalic Eye exam: Present: normal appearance Neck exam: Present: normal inspection Respiratory exam: Present: wheezes (Mild expiratory), rhonchi Cardiovascular Exam: Present: bradycardia GI/Abdominal exam: Present: soft. Absent: tenderness Extremities exam: Present: pedal edema (+1 bilateral). Absent: calf tenderness Neurological exam: Present: alert Psychiatric exam: Present: normal affect, normal mood Skin exam: Present: normal color Course Vital Signs 10/21/22 10/21/22 10/21/22 12:15 12:21 13:38 Temperature 98.4 F Pulse Rate 54 L 52 L Respiratory 20 20 Rate Blood Pressure 155/60 O2 Sat by Pulse 100 Oximetry 10/21/22 10/21/22 13:48 14:43 Temperature Pulse Rate 53 L 61 Respiratory 20 Rate Blood Pressure 142/75 O2 Sat by Pulse 99 Oximetry EKG Findings - EKG Results: EKG: interpreted by ERMD, sinus rhythm, normal axis, normal QRS, normal ST/T EKG shows: bradycardia Medical Decision Making - Medical Decision Making Was pt. sent in by a medical professional or institution (, PA, SERVICE MANAGER, urgent care, hospital, or intermediate...) When possible be specific @ -No Did you speak to anyone other than the patient for history (EMS, parent, family, police, friend...)? What history was obtained from this source @ -No Did you review nursing and triage notes (agree or disagree)? Why? @ -I reviewed and agree with nursing and triage notes Were old charts reviewed (outside hosp., previous admission, EMS record, old EKG, old radiological studies, urgent care reports/EKG's, intermediate records)? Report findings @ -No old charts were reviewed Differential Diagnosis (chest pain, altered mental status, abdominal pain women, abdominal pain men, vaginal bleeding, weakness, fever, dyspnea, syncope, headache, dizziness, GI bleed, back pain, seizure, CVA, palpatations, mental health)? @ -Differential Dyspnea: Coronary syndrome, arrhythmia, tamponade, asthma, COPD, pulmonary embolism, pneumonia, pneumothorax, pulmonary effusion, anaphylaxis, diabetic ketoacidosis, flailed chest, pulmonary contusion, diaphragmatic rupture, anemia, neuromuscular, this is not meant to be an all-inclusive list. EKG interpreted by me (3pts min.). @ -As above X-rays interpreted by me (1pt min.). @ -Chest x-ray does show some increase of interstitial markings consistent with CHF CT interpreted by me (1pt min.). @ -None done U/S interpreted by me (1pt. min.). @ -None done What testing was considered but not performed or refused? (CT, X-rays, U/S, labs)? Why? @ -None What meds were considered but not given or refused? Why? @ -None Did you discuss the management of the patient with other professionals (professionals i.e. , PA, SERVICE MANAGER, lab, RT, psych nurse, social media executive, pipeline technician, teacher, sports development officer, showcase maker)? Give summary @ -No Was smoking cessation discussed for >3mins.? @ -No Was critical care preformed (if so, how long)? @ -No Were there social determinants of health that impacted care today? How? (Homelessness, low income, unemployed, alcoholism, drug addiction, transportation, low edu. Level, literacy, decrease access to med. care, [facility], rehab)? @ -No Was there de-escalation of care discussed even if they declined (Discuss DNR or withdrawal of care, Hospice)? DNR status @ -No What co-morbidities impacted this encounter? (DM, HTN, Smoking, COPD, CAD, Cancer, CVA, ARF, Chemo, Hep., AIDS, mental health diagnosis, sleep apnea, morbid obesity)? @ -History of congestive heart failure Was patient admitted / discharged? Hospital course, mention meds given and route, prescriptions, significant lab abnormalities, going to OR and other pertinent info. @ -Patient reevaluated and is feeling slightly better with nebulizer. Discussion had with patient regarding possible admission however patient refuses. Patient does have previous history of congestive heart failure and would like to try outpatient. She'll be given a dose of Lasix here and advised to take an additional half dose the next 2 mornings and return if symptoms worsen. Undiagnosed new problem with uncertain prognosis? @ -No Drug Therapy requiring intensive monitoring for toxicity (Heparin, Nitro, Insulin, Cardizem)? @ -No Were any procedures done? @ -No Diagnosis/symptom? @ -CHF Acute, or Chronic, or Acute on Chronic? @ -Acute Uncomplicated (without systemic symptoms) or Complicated (systemic symptoms)? @ -default Side effects of treatment? @ -No Exacerbation, Progression, or Severe Exacerbation? @ -No Poses a threat to life or bodily function? How? (Chest pain, [place], [place], pneumonia, PE, COPD, DKA, ARF, appy, cholecystitis, CVA, Diverticulitis, Homicidal, Suicidal, threat to staff... and all critical care pts) @ -No - Lab Data Result diagrams: 10/21/22 13:12 10/21/22 13:12 Lab Results 10/21/22 10/21/22 10/21/22 Range/Units 13:12 13:12 13:12 WBC 10.0 (3.8-10.6) k/uL RBC 3.85 (3.80-5.40) m/uL Hgb 12.0 (11.4-16.0) gm/dL Hct 37.3 (34.0-46.0) % MCV 96.8 (80.0-100.0) fL MCH 31.2 (25.0-35.0) pg MCHC 32.3 (31.0-37.0) g/dL RDW 13.6 (11.5-15.5) % Plt Count 234 (150-450) k/uL MPV 9.1 Neutrophils % 82 % Lymphocytes % 9 % Monocytes % 6 % Eosinophils % 2 % Basophils % 0 % Neutrophils # 8.2 H (1.3-7.7) k/uL Lymphocytes # 0.9 L (1.0-4.8) k/uL Monocytes # 0.6 (0-1.0) k/uL Eosinophils # 0.2 (0-0.7) k/uL Basophils # 0.0 (0-0.2) k/uL PT 10.5 (9.0-12.0) sec INR 1.0 (<1.2) APTT 25.1 (22.0-30.0) sec D-Dimer 0.38 (<0.60) mg/L FEU Sodium 143 (137-145) mmol/L Potassium 4.6 (3.5-5.1) mmol/L Chloride 106 (98-107) mmol/L Carbon Dioxide 27 (22-30) mmol/L Anion Gap 10 mmol/L BUN 33 H (7-17) mg/dL Creatinine 1.22 H (0.52-1.04) mg/dL Est GFR (CKD-EPI)AfAm 48 (>60 ml/min/1.73 sqM) Est GFR (CKD-EPI)NonAf 42 (>60 ml/min/1.73 sqM) Glucose 168 H (74-99) mg/dL Plasma Lactic Acid Gary (0.7-2.0) mmol/L Calcium 8.7 (8.4-10.2) mg/dL Magnesium 2.3 (1.6-2.3) mg/dL Total Bilirubin 1.5 H (0.2-1.3) mg/dL AST 19 (14-36) U/L ALT 16 (4-34) U/L Alkaline Phosphatase 134 H (38-126) U/L Troponin I (0.000-0.034) ng/mL NT-Pro-B Natriuret Pep pg/mL Total Protein 6.7 (6.3-8.2) g/dL Albumin 4.0 (3.5-5.0) g/dL Influenza Type A (PCR) (Not Detectd) Influenza Type B (PCR) (Not Detectd) RSV (PCR) (Not Detectd) SARS-CoV-2 (PCR) (Not Detectd) 10/21/22 10/21/22 10/21/22 Range/Units 13:12 13:12 13:12 WBC (3.8-10.6) k/uL RBC (3.80-5.40) m/uL Hgb (11.4-16.0) gm/dL Hct (34.0-46.0) % MCV (80.0-100.0) fL MCH (25.0-35.0) pg MCHC (31.0-37.0) g/dL RDW (11.5-15.5) % Plt Count (150-450) k/uL MPV Neutrophils % % Lymphocytes % % Monocytes % % Eosinophils % % Basophils % % Neutrophils # (1.3-7.7) k/uL Lymphocytes # (1.0-4.8) k/uL Monocytes # (0-1.0) k/uL Eosinophils # (0-0.7) k/uL Basophils # (0-0.2) k/uL PT (9.0-12.0) sec INR (<1.2) APTT (22.0-30.0) sec D-Dimer (<0.60) mg/L FEU Sodium (137-145) mmol/L Potassium (3.5-5.1) mmol/L Chloride (98-107) mmol/L Carbon Dioxide (22-30) mmol/L Anion Gap mmol/L BUN (7-17) mg/dL Creatinine (0.52-1.04) mg/dL Est GFR (CKD-EPI)AfAm (>60 ml/min/1.73 sqM) Est GFR (CKD-EPI)NonAf (>60 ml/min/1.73 sqM) Glucose (74-99) mg/dL Plasma Lactic Acid Gary 0.9 (0.7-2.0) mmol/L Calcium (8.4-10.2) mg/dL Magnesium (1.6-2.3) mg/dL Total Bilirubin (0.2-1.3) mg/dL AST (14-36) U/L ALT (4-34) U/L Alkaline Phosphatase (38-126) U/L Troponin I <0.012 (0.000-0.034) ng/mL NT-Pro-B Natriuret Pep 444 pg/mL Total Protein (6.3-8.2) g/dL Albumin (3.5-5.0) g/dL Influenza Type A (PCR) (Not Detectd) Influenza Type B (PCR) (Not Detectd) RSV (PCR) (Not Detectd) SARS-CoV-2 (PCR) (Not Detectd) 10/21/22 Range/Units 13:12 WBC (3.8-10.6) k/uL RBC (3.80-5.40) m/uL Hgb (11.4-16.0) gm/dL Hct (34.0-46.0) % MCV (80.0-100.0) fL MCH (25.0-35.0) pg MCHC (31.0-37.0) g/dL RDW (11.5-15.5) % Plt Count (150-450) k/uL MPV Neutrophils % % Lymphocytes % % Monocytes % % Eosinophils % % Basophils % % Neutrophils # (1.3-7.7) k/uL Lymphocytes # (1.0-4.8) k/uL Monocytes # (0-1.0) k/uL Eosinophils # (0-0.7) k/uL Basophils # (0-0.2) k/uL PT (9.0-12.0) sec INR (<1.2) APTT (22.0-30.0) sec D-Dimer (<0.60) mg/L FEU Sodium (137-145) mmol/L Potassium (3.5-5.1) mmol/L Chloride (98-107) mmol/L Carbon Dioxide (22-30) mmol/L Anion Gap mmol/L BUN (7-17) mg/dL Creatinine (0.52-1.04) mg/dL Est GFR (CKD-EPI)AfAm (>60 ml/min/1.73 sqM) Est GFR (CKD-EPI)NonAf (>60 ml/min/1.73 sqM) Glucose (74-99) mg/dL Plasma Lactic Acid Gary (0.7-2.0) mmol/L Calcium (8.4-10.2) mg/dL Magnesium (1.6-2.3) mg/dL Total Bilirubin (0.2-1.3) mg/dL AST (14-36) U/L ALT (4-34) U/L Alkaline Phosphatase (38-126) U/L Troponin I (0.000-0.034) ng/mL NT-Pro-B Natriuret Pep pg/mL Total Protein (6.3-8.2) g/dL Albumin (3.5-5.0) g/dL Influenza Type A (PCR) Not Detected (Not Detectd) Influenza Type B (PCR) Not Detected (Not Detectd) RSV (PCR) Not Detected (Not Detectd) SARS-CoV-2 (PCR) Not Detected (Not Detectd) Disposition Clinical Impression: CHF (congestive heart failure) Disposition: HOME SELF-CARE Condition: Stable Instructions (If sedation given, give patient instructions): Heart Failure (ER) Additional Instructions: Please take an additional one half dose of your furosemide/Lasix for the next 2 mornings. Return for difficulty in breathing, fever, increased leg swelling, chest pain, worsening symptoms or any other concerns. Please also follow-up to primary care physician in the next day or 2 for recheck. Is patient prescribed a controlled substance at d/c from ED?: No Referrals: Rox Parmar DO [Primary Care Provider] - 1-2 days Time of Disposition: 15:03
--- NOTE | 2022-10-21 13:28 | XR ---
EXAMINATION TYPE: XR chest 2V DATE OF EXAM: 10/21/2022 COMPARISON: Chest x-ray September 03, 2022 HISTORY: Difficulty in breathing. TECHNIQUE: Frontal and lateral views of the chest are obtained. FINDINGS: There is cardiomegaly with bilateral increased interstitial markings. No pleural effusion or pneumothorax seen bilaterally. Multilevel vertebroplasty is redemonstrated. Cholecystectomy clips are noted. IMPRESSION: Suspect CHF exacerbation as there is mild cardiomegaly with [id number] interstitia l edema. Correlate clinically.
[2022-10-21 13:42] LABS: Basophils % (A) 0 %; Eosinophils # (A) 0.2 k/uL (0-0.7); Eosinophils % (A) 2 %; HCT 37.3 % (34.0-46.0); Lymphocytes # (A) 0.9 k/uL (1.0-4.8); Lymphocytes % (A) 9 %; MCH 31.2 pg (25.0-35.0); MCHC 32.3 g/dL (31.0-37.0); MCV 96.8 fL (80.0-100.0); Mean Platelet Volume 9.1; Monocytes # (A) 0.6 k/uL (0-1.0); Monocytes % (A) 6 %; Neutrophils # (A) 8.2 k/uL (1.3-7.7); Neutrophils % (A) 82 %; Platelet Count 234 k/uL (150-450); RBC 3.85 m/uL (3.80-5.40); RDW 13.6 % (11.5-15.5)
[2022-10-21 13:56] LABS: Calcium 8.7 mg/dL (8.4-10.2); Magnesium 2.3 mg/dL (1.6-2.3); Potassium 4.6 mmol/L (3.5-5.1); Total Bilirubin 1.5 mg/dL (0.2-1.3); Total Protein 6.7 g/dL (6.3-8.2)
[2022-10-21 13:59] LABS: Partial Thromboplastin Time 25.1 sec (22.0-30.0); Prothrombin Time 10.5 sec (9.0-12.0)
[2022-10-21] MEDS ORDERED: FUROSEMIDE 10 MG/ML 4 ML VIAL IV STA (15:00)
[2022-10-21 15:44] VITALS: BP 143/73; PULSE 57; TEMP 98.5
== END 2022-10-21 15:44 | disposition home or self-care (01) ==
LOC: EC 12:07
DX: I11.0 Hypertensive heart disease with heart failure (principal); I50.9 Heart failure, unspecified; E11.9 Type 2 diabetes mellitus without complications; E78.5 Hyperlipidemia, unspecified; I48.0 Paroxysmal atrial fibrillation; M19.90 Unspecified osteoarthritis, unspecified site; Z20.822 Contact with and (suspected) exposure to COVID-19; Z79.01 Long term (current) use of anticoagulants; Z79.4 Long term (current) use of insulin; Z79.84 Long term (current) use of oral hypoglycemic drugs; Z79.899 Other long term (current) drug therapy; Z88.1 Allergy status to other antibiotic agents; Z88.5 Allergy status to narcotic agent; Z88.6 Allergy status to analgesic agent
CPT/HCPCS: 36415; 94640; 93005; 85379; 83880; 80053; 83605; 83735; 84484; 85025; 85610; 85730; 87636; 71046; 99285; 96374; J1940

== ENCOUNTER 2022-12-30 09:08 | Inpatient (IN) | payer MEDICARE ==
--- NOTE | 2022-12-30 10:24 | XR ---
EXAMINATION TYPE: XR chest 2V DATE OF EXAM: 12/30/2022 10:18 AM COMPARISON: Chest radiographs from 10/21/2022 TECHNIQUE: XR chest 2V Frontal and lateral views of the chest. CLINICAL INDICATION:Female, 82 years old with history of Chest Pain; FINDINGS: Lungs/Pleura: There is no evidence of pleural effusion, focal consolidation, or pneumothorax. Chronic senescent parenchymal change. Pulmonary vascularity: Unremarkable. Heart/mediastinum: Cardiomediastinal silhouette is unremarkable. Musculoskeletal: No acute osseous pathology. Multilevel thoracic vertebral augmentation. Other: Cholecystectomy clips in the right upper quadrant. IMPRESSION: Chronic changes without evidence for acute process.
[2022-12-30 10:32] LABS: Basophils % (A) 0 %; Eosinophils # (A) 0.1 k/uL (0-0.7); Eosinophils % (A) 2 %; HCT 38.4 % (34.0-46.0); HGB 12.4 gm/dL (11.4-16.0); Lymphocytes # (A) 0.5 k/uL (1.0-4.8); Lymphocytes % (A) 7 %; MCH 31.5 pg (25.0-35.0); MCHC 32.3 g/dL (31.0-37.0); MCV 97.3 fL (80.0-100.0); Mean Platelet Volume 8.6; Monocytes # (A) 0.3 k/uL (0-1.0); Monocytes % (A) 4 %; Neutrophils % (A) 85 %; Platelet Count 259 k/uL (150-450); RBC 3.95 m/uL (3.80-5.40); RDW 13.3 % (11.5-15.5); WBC 7.1 k/uL (3.8-10.6)
[2022-12-30 10:41] LABS: Partial Thromboplastin Time 25.6 sec (22.0-30.0); Prothrombin Time 10.4 sec (9.0-12.0)
[2022-12-30 10:44] LABS: ALT 18 U/L (4-34); AST 25 U/L (14-36); African American GFR (CKD) 56 (>60 ml/min/1.73 sqM); Albumin 4.2 g/dL (3.5-5.0); Alkaline Phosphatase 137 U/L (38-126); Anion Gap 10 mmol/L; Blood Urea Nitrogen 24 mg/dL (7-17); Calcium 8.9 mg/dL (8.4-10.2); Carbon Dioxide 26 mmol/L (22-30); Chloride 102 mmol/L (98-107); Glucose 251 mg/dL (74-99); Magnesium 2.1 mg/dL (1.6-2.3); Non-African American GFR(CKD) 48 (>60 ml/min/1.73 sqM); Sodium 138 mmol/L (137-145); Total Bilirubin 0.9 mg/dL (0.2-1.3); Total Protein 6.9 g/dL (6.3-8.2)
[2022-12-30 10:52] LABS: Potassium 4.6 mmol/L (3.5-5.1)
[2022-12-30] MEDS ORDERED: ASPIRIN 81 MG PO STA (11:56)
[2022-12-30] MEDS ORDERED: NITROGLYCERIN SL TABS 0.4 MG TAB SUBLINGUAL PRN ×2 (12:31→12:40)
[2022-12-30] MEDS ORDERED: NALOXONE 0.4 MG/ML 1 ML VIAL IVP PRN (12:31)
[2022-12-30] MEDS ORDERED: HYDROcodone/APAP 7.5-325MG 1 EACH TAB PO PRN (12:32)
--- NOTE | 2022-12-30 12:40 | ED ---
General Adult HPI - General Chief complaint: Chest Pain Stated complaint: MARGE Chest Pain Time Seen by Provider: 12/30/22 09:17 Source: patient Mode of arrival: wheelchair Limitations: no limitations - History of Present Illness Initial comments: Dictation was produced using [email or web address] dictation software. please excuse any grammatical, word or spelling errors. Chief Complaint: 82-year-old female multiple comorbidities presents to the ER for shortness breath or chest pain History of Present Illness: 82-year-old female she has multiple comorbidities. She has history of A. fib, diabetes dyslipidemia. Patient states that over the last several hours she has been having chest pain states is like a dull ache relates to the left shoulder. Patient has any history of coronary artery stents or myocardial infarction. Patient reports the pain is mild at this time. The ROS documented in this emergency department record has been reviewed and confirmed by me. Those systems with pertinent positive or negative responses have been documented in the HPI. All other systems are other negative and/or noncontributory. - Related Data Home Medications Medication Instructions Recorded Confirmed glipiZIDE XL [Glucotrol XL] 5 mg PO DAILY 12/04/17 12/30/22 amLODIPine [Norvasc] 5 mg PO DAILY 04/09/18 12/30/22 sitaGLIPtin [Januvia] 100 mg PO DAILY 04/09/18 12/30/22 Montelukast [Singulair] 10 mg PO DAILY 03/28/19 12/30/22 Atorvastatin [Lipitor] 40 mg PO DAILY 04/09/19 12/30/22 Metoprolol Succinate [Toprol XL] 50 mg PO DAILY 09/16/20 12/30/22 Apixaban [Eliquis] 5 mg PO BID 09/04/22 12/30/22 Gabapentin 300 mg PO BID 09/04/22 12/30/22 HYDROcodone/APAP 7.5-325MG [[place] 1 tab PO BID PRN 09/04/22 12/30/22 7.5-325] Insulin Glargine,Hum.rec.anlog 10 units SQ DAILY 09/04/22 12/30/22 [Lantus Solostar Pen] Meloxicam [Mobic] 15 mg PO DAILY 10/16/22 12/30/22 Tolterodine Tartrate [Tolterodine 4 mg PO DAILY 10/16/22 12/30/22 Tartrate ER] Albuterol Nebulized [Ventolin 2.5 mg INHALATION RT-QID 12/30/22 12/30/22 Nebulized] Budesonide [Pulmicort] 0.5 mg INHALATION RT-BID 12/30/22 12/30/22 Omeprazole 40 mg PO DAILY 12/30/22 12/30/22 methocarbamoL [Robaxin] 500 mg PO Q6H PRN 12/30/22 12/30/22 Previous Rx's Medication Instructions Recorded Furosemide [Lasix] 40 mg PO DAILY #30 tab 09/06/22 hydrALAZINE HCL [Apresoline] 25 mg PO BID #60 tab 09/06/22 Allergies Allergy/AdvReac Type Severity Reaction Status Date / Time tetracycline Allergy Unknown Verified 12/30/22 11:07 fentanyl AdvReac "IN Verified 12/30/22 11:07 ANOTHER PLANET, DIDNT KNOW WHERE SHE WAS" morphine AdvReac Nausea & Verified 12/30/22 11:07 Vomiting Review of Systems ROS Statement: Those systems with pertinent positive or pertinent negative responses have been documented in the HPI. ROS Other: All systems not noted in ROS Statement are negative. Past Medical History Past Medical History: Atrial Fibrillation, Chest Pain / Angina, Diabetes Mellitus, Hyperlipidemia, Hypertension, Osteoarthritis (OA), Pneumonia Additional Past Medical History / Comment(s): Paroxysmal Afib, POST OP INFECTION AFTER BACK SURGERY, CHRONIC BACK PAIN FROM T8 FX, CHRONIC PERIPHERAL LEG EDEMA,R humerus fracture. History of Any Multi-Drug Resistant Organisms: None Reported Past Surgical History: Back Surgery, Cholecystectomy, Orthopedic Surgery Additional Past Surgical History / Comment(s): 2015 LUMBAR SURGERY, FX NOSE REPAIR, BILATERAL CATARACT SURGERY, R WRIST CARPAL TUNNEL SURGERY, kyphoplasty T8 ON 06/26/16 AND ONE BEFORE. Past Anesthesia/Blood Transfusion Reactions: No Reported Reaction Additional Past Anesthesia/Blood Transfusion Reaction / Comment(s): NEVER HAD A BLOOD TRANSFUSION. Past Psychological History: No Psychological Hx Reported Smoking Status: Never smoker Past Alcohol Use History: None Reported Past Drug Use History: None Reported - Past Family History Father Family Medical History: Myocardial Infarction ([place]) Additional Family Medical History / Comment(s): FATHER AT AGE 52 OF AN [place] Mother Additional Family Medical History / Comment(s): MOTHER AT AGE 89 OF CELEBREX PROBLEM. General Exam - General Exam Comments Initial Comments: PHYSICAL EXAM: General Impression: Alert and oriented x3, not in acute distress HEENT: Normocephalic atraumatic, extra-ocular movements intact, pupils equal and reactive to light bilaterally, mucous membranes moist. Cardiovascular: Heart regular rate and rhythm Chest: Able to complete full sentences, no retractions, no tachypnea Abdomen: abdomen soft, non-tender, non-distended, no organomegaly Musculoskeletal: Pulses present and equal in all extremities, no peripheral edema Motor: no focal deficits noted Neurological: CN II-XII grossly intact, no focal motor or sensory deficits noted Skin: Intact with no visualized rashes Psych: Normal affect and mood Limitations: no limitations Course Vital Signs 12/30/22 12/30/22 09:08 09:21 Temperature 97.6 F Pulse Rate 84 Pulse Rate [ 73 [employer] [place] ] Respiratory 24 Rate Blood Pressure 150/60 O2 Sat by Pulse 92 L Oximetry EKG Findings - EKG Comments: EKG Findings:: My EKG interpretation: Ventricular rate 76, sinus rhythm,. Interval 191, QRS 80, QTC 372. No FL prolongation, no QTC prolongation, no ST or T-wave changes noted. Overall, this EKG is unremarkable Medical Decision Making - Medical Decision Making Was pt. sent in by a medical professional or institution (, PA, BIT SHAVER, urgent care, hospital, or prison...) When possible be specific @ -No Did you speak to anyone other than the patient for history (EMS, parent, family, police, friend...)? What history was obtained from this source @ -No Did you review nursing and triage notes (agree or disagree)? Why? @ -I reviewed and agree with nursing and triage notes Were old charts reviewed (outside hosp., previous admission, EMS record, old EKG, old radiological studies, urgent care reports/EKG's, prison records)? Report findings @ -No old charts were reviewed Differential Diagnosis (chest pain, altered mental status, abdominal pain women, abdominal pain men, vaginal bleeding, musculoskeletal, weakness, fever, dyspnea, syncope, headache, dizziness, GI bleed, back pain, seizure, CVA, palpatations, mental health)? @ -Differential Chest Pain: Stable Angina, Unstable Angina, STEMI, NSTEMI Aortic Dissection, Pneumothorax, Musculoskeletal, Esophageal Spasm GERD, Cholecystitis, Pancreatitis, Zoster, this is not meant to be an all-inclusive list. EKG interpreted by me (3pts min.). @ -see above X-rays interpreted by me (1pt min.). @ -No acute processes on chest x-ray CT interpreted by me (1pt min.). @ -None done U/S interpreted by me (1pt. min.). @ -None done What testing was considered but not performed or refused? (CT, X-rays, U/S, labs)? Why? @ -Dimer was considered however patient oriented anticoagulation medications What meds were considered but not given or refused? Why? @ -None Did you discuss the management of the patient with other professionals (professionals i.e. , PA, BIT SHAVER, lab, RT, psych nurse, clinical social worker, coordinator integrated marketing, teacher, energy control officer, continuous pillowcase cutter)? Give summary @ -No Was smoking cessation discussed for >3mins.? @ -No Was critical care preformed (if so, how long)? @ -No Were there social determinants of health that impacted care today? How? (Homelessness, low income, unemployed, alcoholism, drug addiction, transportation, low edu. Level, literacy, decrease access to med. care, fdc, rehab)? @ -No Was there de-escalation of care discussed even if they declined (Discuss DNR or withdrawal of care, Hospice)? DNR status @ -No What co-morbidities impacted this encounter? (DM, HTN, Smoking, COPD, CAD, Cancer, CVA, ARF, Chemo, Hep., AIDS, mental health diagnosis, sleep apnea, morbid obesity)? @ -Diabetes Was patient admitted / discharged? Hospital course, mention meds given and route, prescriptions, significant lab abnormalities, going to OR and other pe rtinent info. @ --year-old female presents emergency department with atypical chest pain typical features. Vital signs upon arrival are within acceptable limits. Laboratory workup is unremarkable. Troponin is negative. Chest x-ray is nonacute. Patient be admitted for cardiac monitoring to observation with cardiology consultation. Undiagnosed new problem with uncertain prognosis? @ -No Drug Therapy requiring intensive monitoring for toxicity (Heparin, Nitro, Insulin, Cardizem)? @ -No Were any procedures done? @ -No Diagnosis/symptom? Acute, or Chronic, or Acute on Chronic? Uncomplicated (without systemic symptoms) or Complicated (systemic symptoms)? @ -1. Chest pain Side effects of treatment? @ -No Exacerbation, Progression, or Severe Exacerbation? @ -No Poses a threat to life or bodily function? How? (Chest pain, [place], ID, pneumonia, PE, COPD, DKA, ARF, appy, cholecystitis, CVA, Diverticulitis, Homicidal, Suicidal, threat to staff... and all critical care pts) @ -yes - Lab Data Result diagrams: 12/30/22 10:16 12/30/22 10:16 Lab Results 12/30/22 12/30/22 12/30/22 Range/Units 10:16 10:16 10:16 WBC 7.1 (3.8-10.6) k/uL RBC 3.95 (3.80-5.40) m/uL Hgb 12.4 (11.4-16.0) gm/dL Hct 38.4 (34.0-46.0) % MCV 97.3 (80.0-100.0) fL MCH 31.5 (25.0-35.0) pg MCHC 32.3 (31.0-37.0) g/dL RDW 13.3 (11.5-15.5) % Plt Count 259 (150-450) k/uL MPV 8.6 Neutrophils % 85 % Lymphocytes % 7 % Monocytes % 4 % Eosinophils % 2 % Basophils % 0 % Neutrophils # 6.0 (1.3-7.7) k/uL Lymphocytes # 0.5 L (1.0-4.8) k/uL Monocytes # 0.3 (0-1.0) k/uL Eosinophils # 0.1 (0-0.7) k/uL Basophils # 0.0 (0-0.2) k/uL PT 10.4 (9.0-12.0) sec INR 1.0 (<1.2) APTT 25.6 (22.0-30.0) sec Sodium 138 (137-145) mmol/L Potassium 4.6 (3.5-5.1) mmol/L Chloride 102 (98-107) mmol/L Carbon Dioxide 26 (22-30) mmol/L Anion Gap 10 mmol/L BUN 24 H (7-17) mg/dL Creatinine 1.09 H (0.52-1.04) mg/dL Est GFR (CKD-EPI)AfAm 56 (>60 ml/min/1.73 sqM) Est GFR (CKD-EPI)NonAf 48 (>60 ml/min/1.73 sqM) Glucose 251 H (74-99) mg/dL Calcium 8.9 (8.4-10.2) mg/dL Magnesium 2.1 (1.6-2.3) mg/dL Total Bilirubin 0.9 (0.2-1.3) mg/dL AST 25 (14-36) U/L ALT 18 (4-34) U/L Alkaline Phosphatase 137 H (38-126) U/L Troponin I (0.000-0.034) ng/mL Total Protein 6.9 (6.3-8.2) g/dL Albumin 4.2 (3.5-5.0) g/dL 12/30/22 Range/Units 10:16 WBC (3.8-10.6) k/uL RBC (3.80-5.40) m/uL Hgb (11.4-16.0) gm/dL Hct (34.0-46.0) % MCV (80.0-100.0) fL MCH (25.0-35.0) pg MCHC (31.0-37.0) g/dL RDW (11.5-15.5) % Plt Count (150-450) k/uL MPV Neutrophils % % Lymphocytes % % Monocytes % % Eosinophils % % Basophils % % Neutrophils # (1.3-7.7) k/uL Lymphocytes # (1.0-4.8) k/uL Monocytes # (0-1.0) k/uL Eosinophils # (0-0.7) k/uL Basophils # (0-0.2) k/uL PT (9.0-12.0) sec INR (<1.2) APTT (22.0-30.0) sec Sodium (137-145) mmol/L Potassium (3.5-5.1) mmol/L Chloride (98-107) mmol/L Carbon Dioxide (22-30) mmol/L Anion Gap mmol/L BUN (7-17) mg/dL Creatinine (0.52-1.04) mg/dL Est GFR (CKD-EPI)AfAm (>60 ml/min/1.73 sqM) Est GFR (CKD-EPI)NonAf (>60 ml/min/1.73 sqM) Glucose (74-99) mg/dL Calcium (8.4-10.2) mg/dL Magnesium (1.6-2.3) mg/dL Total Bilirubin (0.2-1.3) mg/dL AST (14-36) U/L ALT (4-34) U/L Alkaline Phosphatase (38-126) U/L Troponin I <0.012 (0.000-0.034) ng/mL Total Protein (6.3-8.2) g/dL Albumin (3.5-5.0) g/dL Disposition Clinical Impression: Chest pain Disposition: ADMITTED IP TO THIS HOSP Condition: Fair Referrals: Rox Parmar DO [Primary Care Provider] - 1-2 days Decision Time: 12:40
[2022-12-30] MEDS ORDERED: INSULIN DETEMIR (LEVEMIR) 100 UNIT/ML SYR SQ SCH (12:45)
[2022-12-30] MEDS: GABAPENTIN 300 MG CAP PO SCH ×2 (13:20→21:28)
[2022-12-30] MEDS: METOPROLOL SUCCINATE (ER) 50 MG TAB.ER.24H PO SCH (13:20)
--- NOTE | 2022-12-30 14:56 | P.HPIM ---
History of Present Illness H&P Date: 12/30/22 Chief Complaint: Chest pain * 82-year-old lady with past medical history significant for atrial fibrillation, hypertension, mild coronary artery disease based on cardiac catheterization in 2018, diabetes Mellitus 2 presented to the emergency department with complaints of chest pain and shortness of breath. Patient says she has been having intermittent chest discomfort for the last 1 week. Patient states chest pain is associated with exertion and is midsternal individual * Patient states chest pain gets better with rest * At the time of presentation in ER patient had initial EKG done which showed normal sinus rhythm no significant ST segment changes * Initial troponin obtained was negative as well * Patient placed in observation unit with consultation for cardiology to rule out and evaluate for ACS Review of Systems REVIEW OF SYSTEMS: Chest pain, shortness of breath CONSTITUTIONAL: No fever, no malaise, no fatigue. HEENT: No recent visual problems or hearing problems. Denied any sore throat. CARDIOVASCULAR: No orthopnea, PND, no palpitations, no syncope. PULMONARY: No , no cough, no hemoptysis. GASTROINTESTINAL: No diarrhea, no nausea, no vomiting, no abdominal pain. NEUROLOGICAL: No headaches, no weakness, no numbness. HEMATOLOGICAL: Denies any bleeding or petechiae. GENITOURINARY: Denies any burning micturition, frequency, or urgency. MUSCULOSKELETAL/RHEUMATOLOGICAL: Denies any joint pain, swelling, or any muscle pain. ENDOCRINE: Denies any polyuria or polydipsia. Past Medical History Past Medical History: Atrial Fibrillation, Chest Pain / Angina, Diabetes Mellitus, Hyperlipidemia, Hypertension, Osteoarthritis (OA), Pneumonia Additional Past Medical History / Comment(s): Paroxysmal Afib, POST OP INFECTION AFTER BACK SURGERY, CHRONIC BACK PAIN FROM T8 FX, CHRONIC PERIPHERAL LEG EDEMA,R humerus fracture. History of Any Multi-Drug Resistant Organisms: None Reported Past Surgical History: Back Surgery, Cholecystectomy, Orthopedic Surgery Additional Past Surgical History / Comment(s): 2015 LUMBAR SURGERY, FX NOSE REPAIR, BILATERAL CATARACT SURGERY, R WRIST CARPAL TUNNEL SURGERY, kyphoplasty T8 ON 06/26/16 AND ONE BEFORE. Past Anesthesia/Blood Transfusion Reactions: No Reported Reaction Additional Past Anesthesia/Blood Transfusion Reaction / Comment(s): NEVER HAD A BLOOD TRANSFUSION. Past Psychological History: No Psychological Hx Reported Smoking Status: Never smoker Past Alcohol Use History: None Reported Past Drug Use History: None Reported - Past Family History Father Family Medical History: Myocardial Infarction ([place]) Additional Family Medical History / Comment(s): FATHER AT AGE 52 OF AN [place] Mother Additional Family Medical History / Comment(s): MOTHER AT AGE 89 OF CELEBREX PROBLEM. Medications and Allergies Home Medications Medication Instructions Recorded Confirmed Type glipiZIDE XL [Glucotrol XL] 5 mg PO DAILY 12/04/17 12/30/22 History amLODIPine [Norvasc] 5 mg PO DAILY 04/09/18 12/30/22 History sitaGLIPtin [Januvia] 100 mg PO DAILY 04/09/18 12/30/22 History Montelukast [Singulair] 10 mg PO DAILY 03/28/19 12/30/22 History Atorvastatin [Lipitor] 40 mg PO DAILY 04/09/19 12/30/22 History Metoprolol Succinate [Toprol XL] 50 mg PO DAILY 09/16/20 12/30/22 History Apixaban [Eliquis] 5 mg PO BID 09/04/22 12/30/22 History Gabapentin 300 mg PO BID 09/04/22 12/30/22 History HYDROcodone/APAP 7.5-325MG [[place] 1 tab PO BID PRN 09/04/22 12/30/22 History 7.5-325] Insulin Glargine,Hum.rec.anlog 10 units SQ DAILY 09/04/22 12/30/22 History [Lantus Solostar Pen] Furosemide [Lasix] 40 mg PO DAILY #30 tab 09/06/22 12/30/22 Rx hydrALAZINE HCL [Apresoline] 25 mg PO BID #60 tab 09/06/22 12/30/22 Rx Meloxicam [Mobic] 15 mg PO DAILY 10/16/22 12/30/22 History Tolterodine Tartrate [Tolterodine 4 mg PO DAILY 10/16/22 12/30/22 History Tartrate ER] Albuterol Nebulized [Ventolin 2.5 mg INHALATION RT-QID 12/30/22 12/30/22 History Nebulized] Budesonide [Pulmicort] 0.5 mg INHALATION RT-BID 12/30/22 12/30/22 History Omeprazole 40 mg PO DAILY 12/30/22 12/30/22 History methocarbamoL [Robaxin] 500 mg PO Q6H PRN 12/30/22 12/30/22 History Allergies Allergy/AdvReac Type Severity Reaction Status Date / Time tetracycline Allergy Unknown Verified 12/30/22 11:07 fentanyl AdvReac "IN Verified 12/30/22 11:07 ANOTHER PLANET, DIDNT KNOW WHERE SHE WAS" morphine AdvReac Nausea & Verified 12/30/22 11:07 Vomiting Physical Exam Vitals: Vital Signs Temp Pulse Pulse Resp BP Pulse Ox 12/30/22 13:43 65 16 139/68 96 12/30/22 12:39 75 18 136/58 94 L 12/30/22 09:21 73 12/30/22 09:08 97.6 F 84 24 150/60 92 L Intake and Output 12/29/22 12/30/22 12/30/22 22:59 06:59 14:59 Other: Weight 125.645 kg PHYSICAL EXAMINATION: GENERAL: The patient is alert and oriented x3, not in any acute distress. Well developed, well nourished. HEENT: Pupils are round and equally reacting to light. EOMI. No scleral icterus. No conjunctival pallor. Normocephalic, atraumatic. No pharyngeal erythema. No t hyromegaly. CARDIOVASCULAR: S1 and S2 present. No murmurs, rubs, or gallops. PULMONARY: Chest is clear to auscultation, no wheezing or crackles. ABDOMEN: Soft, nontender, nondistended, normoactive bowel sounds. No palpable organomegaly. MUSCULOSKELETAL: No joint swelling or deformity. EXTREMITIES: No cyanosis, clubbing, or pedal edema. NEUROLOGICAL: Gross neurological examination did not reveal any focal deficits. SKIN: No rashes. Results CBC & Chem 7: 12/30/22 10:16 12/30/22 10:16 Labs: Abnormal Lab Results - Last 24 Hours (Table) 12/30/22 12/30/22 Range/Units 10:16 10:16 Lymphocytes # 0.5 L (1.0-4.8) k/uL BUN 24 H (7-17) mg/dL Creatinine 1.09 H (0.52-1.04) mg/dL Glucose 251 H (74-99) mg/dL Alkaline Phosphatase 137 H (38-126) U/L Thrombosis Risk Factor Assmnt - DVT/VTE Prophylaxis DVT/VTE Prophylaxis: Pharmacologic Prophylaxis ordered Assessment and Plan Assessment: Assessment and plan * Chest pain along with progressive shortness of rule out acute coronary syndrome * History of atrial fibrillation * Hypertension * Diabetes mellitus type 2 * In regards to chest pain serial troponins ordered, sublingual nitroglycerin ordered, cardiology consulted, continue aspirin, Eliquis, Metoprolol * Regards to atrial fibrillation continue Elqiuis and Metoprolol * In regards to diabetes mellitus continue patient on correctional insulin and Lantus, monitor for hypoglycemia * CODE STATUS discussed with patient she is full code
[2022-12-30] MEDS: ALBUTEROL NEBULIZED 2.5 MG/3 ML INHALATION SCH ×2 (15:30→19:31)
[2022-12-30 17:35] LABS: Glucose,Whole Blood 90 mg/dL (70-110)
[2022-12-30] MEDS: INSULIN ASPART (NovoLOG) 100 UNIT/ML VIAL SQ SCH ×2 (18:42→21:27)
[2022-12-30] MEDS: BUDESONIDE 0.5 MG/2 ML NEBU INHALATION SCH (19:31)
[2022-12-30 21:19] LABS: Glucose,Whole Blood 187 mg/dL (70-110)
[2022-12-30] MEDS: APIXABAN 5 MG TAB PO SCH (21:28)
[2022-12-30] MEDS: hydrALAZINE HCL 25 MG TAB PO SCH (21:28)
[2022-12-31 05:17] LABS: Glucose,Whole Blood 91 mg/dL (70-110)
[2022-12-31] MEDS: INSULIN ASPART (NovoLOG) 100 UNIT/ML VIAL SQ SCH ×4 (05:19→20:56)
[2022-12-31] MEDS ORDERED: AMINOPHYLLINE 500 MG/20 ML VIAL IV PRN (07:28)
[2022-12-31] MEDS ORDERED: REGADENOSON 0.4 MG/5 ML SYRINGE IV PRN (07:28)
[2022-12-31] MEDS ORDERED: CAFFEINE CITRATE 60 MG/3 ML VIAL IV PRN (07:28)
--- NOTE | 2022-12-31 07:29 | P.CRDCN ---
History of Present Illness Consult date: 12/31/22 Chief complaint: Chest pain History of present illness: The patient is a pleasant 82-year-old female patient with a past medical history significant for paroxysmal atrial fibrillation status post cardioversion recently and she has been maintaining normal sinus mechanism as well as diabetes and hypertension and dyslipidemia and preserved LV function on recent echo from 2022 presented to the hospital complaining of chest discomfort and neck di scomfort. She describes discomfort in the middle of the chest as bowel/pain radiating to her neck. His heart to tell if the pain is coming from the neck all radiating to the neck. Beside that she has been experiencing shortness of breath with exertion. No dizziness or lightheadedness and no presyncope or syncope and no feeling of heart racing or fluttering. She underwent further cardiac workup including EKG showing sinus mechanism was nonspecific changes but she has been maintaining heart rate in the 50s and also she underwent cardiac enzymes came in to be unremarkable. The chest x-ray showed no acute abnormalities. Currently she is chest pain-free. No history of coronary artery disease or coronary revascularization she does have multiple risk factors including diabetes and hypertension and dyslipidemia and she is also overweight. No recent stress test was performed. The examination is remarkable for stable vital signs with heart rate in the 50s and diminished breathing sounds bilaterally and regular rate and rhythm. Assessment Chest discomfort appeared to be atypical. Differential diagnosis including coronary artery disease versus noncardiac disease like neck pain radiating to the upper chest Multiple risk factors including diabetes and hypertension and dyslipidemia Paroxysmal atrial fibrillation Plan Acute coronary event was ruled out Perform stress test to rule out severe CAD Follow-up with the patient Past Medical History Past Medical History: Atrial Fibrillation, Chest Pain / Angina, Diabetes Mellitus, Hyperlipidemia, Hypertension, Osteoarthritis (OA), Pneumonia Additional Past Medical History / Comment(s): Paroxysmal Afib, POST OP INFECTION AFTER BACK SURGERY, CHRONIC BACK PAIN FROM T8 FX, CHRONIC PERIPHERAL LEG EDEMA,R humerus fracture. History of Any Multi-Drug Resistant Organisms: None Reported Past Surgical History: Back Surgery, Cholecystectomy, Orthopedic Surgery Additional Past Surgical History / Comment(s): 2015 LUMBAR SURGERY, FX NOSE REPAIR, BILATERAL CATARACT SURGERY, R WRIST CARPAL TUNNEL SURGERY, kyphoplasty T8 ON 06/26/16 AND ONE BEFORE. Past Anesthesia/Blood Transfusion Reactions: No Reported Reaction Additional Past Anesthesia/Blood Transfusion Reaction / Comment(s): NEVER HAD A BLOOD TRANSFUSION. Past Psychological History: No Psychological Hx Reported Additional Psychological History / Comment(s): PT LIVES ALONE IN A [place]. SHE IS INDEPENDENT. SHE DRIVES A CAR. Smoking Status: Never smoker Past Alcohol Use History: None Reported Past Drug Use History: None Reported - Past Family History Father Family Medical History: Myocardial Infarction ([place]) Additional Family Medical History / Comment(s): FATHER AT AGE 52 OF AN [place] Mother Additional Family Medical History / Comment(s): MOTHER AT AGE 89 OF CELEBREX PROBLEM. Medications and Allergies Home Medications Medication Instructions Recorded Confirmed Type glipiZIDE XL [Glucotrol XL] 5 mg PO DAILY 12/04/17 12/30/22 History amLODIPine [Norvasc] 5 mg PO DAILY 04/09/18 12/30/22 History sitaGLIPtin [Januvia] 100 mg PO DAILY 04/09/18 12/30/22 History Montelukast [Singulair] 10 mg PO DAILY 03/28/19 12/30/22 History Atorvastatin [Lipitor] 40 mg PO DAILY 04/09/19 12/30/22 History Metoprolol Succinate [Toprol XL] 50 mg PO DAILY 09/16/20 12/30/22 History Apixaban [Eliquis] 5 mg PO BID 09/04/22 12/30/22 History Gabapentin 300 mg PO BID 09/04/22 12/30/22 History HYDROcodone/APAP 7.5-325MG [[place] 1 tab PO BID PRN 09/04/22 12/30/22 History 7.5-325] Insulin Glargine,Hum.rec.anlog 10 units SQ DAILY 09/04/22 12/30/22 History [Lantus Solostar Pen] Furosemide [Lasix] 40 mg PO DAILY #30 tab 09/06/22 12/30/22 Rx hydrALAZINE HCL [Apresoline] 25 mg PO BID #60 tab 09/06/22 12/30/22 Rx Meloxicam [Mobic] 15 mg PO DAILY 10/16/22 12/30/22 History Tolterodine Tartrate [Tolterodine 4 mg PO DAILY 10/16/22 12/30/22 History Tartrate ER] Albuterol Nebulized [Ventolin 2.5 mg INHALATION RT-QID 12/30/22 12/30/22 History Nebulized] Budesonide [Pulmicort] 0.5 mg INHALATION RT-BID 12/30/22 12/30/22 History Omeprazole 40 mg PO DAILY 12/30/22 12/30/22 History methocarbamoL [Robaxin] 500 mg PO Q6H PRN 12/30/22 12/30/22 History Allergies Allergy/AdvReac Type Severity Reaction Status Date / Time tetracycline Allergy Unknown Verified 12/30/22 11:07 fentanyl AdvReac "IN Verified 12/30/22 11:07 ANOTHER PLANET, DIDNT KNOW WHERE SHE WAS" morphine AdvReac Nausea & Verified 12/30/22 11:07 Vomiting Physical Exam Vitals: Vital Signs Temp Pulse Pulse Resp BP BP Pulse Ox 12/31/22 02:00 98.3 F 58 L 15 117/62 92 L 12/30/22 19:58 98.5 F 59 L 18 152/74 93 L 12/30/22 19:50 78 12/30/22 19:38 76 12/30/22 15:41 76 12/30/22 15:32 68 96 12/30/22 15:00 97.8 F 56 L 20 157/83 97 12/30/22 13:43 65 16 139/68 96 12/30/22 12:39 75 18 136/58 94 L 12/30/22 09:21 73 12/30/22 09:08 97.6 F 84 24 150/60 92 L FiO2 12/31/22 02:00 12/30/22 19:58 12/30/22 19:50 12/30/22 19:38 12/30/22 15:41 12/30/22 15:32 21 12/30/22 15:00 12/30/22 13:43 12/30/22 12:39 12/30/22 09:21 12/30/22 09:08 Intake and Output 12/30/22 12/31/22 12/31/22 22:59 06:59 14:59 Output Total 0 Balance 0 Output: Emesis 0 Other: # Voids 1 Weight 125.645 kg Results 12/30/22 10:16 12/30/22 10:16 Cardiac Enzymes 12/30/22 12/30/22 12/30/22 Range/Units 10:16 10:16 14:45 AST 25 (14-36) U/L Troponin I <0.012 <0.012 (0.000-0.034) ng/mL 12/30/22 Range/Units 18:14 AST (14-36) U/L Troponin I <0.012 (0.000-0.034) ng/mL Coagulation 12/30/22 Range/Units 10:16 PT 10.4 (9.0-12.0) sec APTT 25.6 (22.0-30.0) sec CBC 12/30/22 Range/Units 10:16 WBC 7.1 (3.8-10.6) k/uL RBC 3.95 (3.80-5.40) m/uL Hgb 12.4 (11.4-16.0) gm/dL Hct 38.4 (34.0-46.0) % Plt Count 259 (150-450) k/uL Comprehensive Metabolic Panel 12/30/22 Range/Units 10:16 Sodium 138 (137-145) mmol/L Potassium 4.6 (3.5-5.1) mmol/L Chloride 102 (98-107) mmol/L Carbon Dioxide 26 (22-30) mmol/L BUN 24 H (7-17) mg/dL Creatinine 1.09 H (0.52-1.04) mg/dL Glucose 251 H (74-99) mg/dL Calcium 8.9 (8.4-10.2) mg/dL AST 25 (14-36) U/L ALT 18 (4-34) U/L Alkaline Phosphatase 137 H (38-126) U/L Total Protein 6.9 (6.3-8.2) g/dL Albumin 4.2 (3.5-5.0) g/dL Current Medications Generic Name Dose Route Start Last Admin Trade Name Freq PRN Reason Stop Dose Admin Hydrocodone Bitart/Acetaminophen 1 each 12/30/22 12:32 Hydrocodone/Apap 7.5-325mg 1 Each Tab PO BID PRN Pain Albuterol Sulfate 2.5 mg 12/30/22 16:00 12/30/22 19:31 Albuterol Nebulized 2.5 Mg/3 Ml INHALATION 2.5 mg RT-QID YOSSI Administration Amlodipine Besylate 5 mg 12/31/22 09:00 Amlodipine 5 Mg Tab PO DAILY YOSSI Apixaban 5 mg 12/30/22 21:00 12/30/22 21:28 Apixaban 5 Mg Tab PO 5 mg BID [facility] Administration Protocol Aspirin 325 mg 12/31/22 09:00 Aspirin 325 Mg Tab PO DAILY [facility] Atorvastatin Calcium 40 mg 12/31/22 09:00 Atorvastatin 40 Mg Tab PO DAILY [facility] Budesonide 0.5 mg 12/30/22 20:00 12/30/22 19:31 Budesonide 0.5 Mg/2 Ml Nebu INHALATION 0.5 mg RT-BID [facility] Administration Gabapentin 300 mg 12/30/22 12:45 12/30/22 21:28 Gabapentin 300 Mg Cap PO 300 mg BID [facility] Administration Hydralazine HCl 25 mg 12/30/22 21:00 12/30/22 21:28 Hydralazine Hcl 25 Mg Tab PO 25 mg BID [facility] Administration Insulin Aspart 0 unit 12/30/22 17:30 12/31/22 05:19 Insulin Aspart (Novolog) 100 Unit/Ml Vial SQ Not Given ACHS [facility] Protocol Insulin Detemir 10 unit 12/31/22 07:00 Insulin Detemir (Levemir) 100 Unit/Ml Syr SQ DAILY@0700 [facility] Methocarbamol 500 mg 12/30/22 12:32 Methocarbamol 500 Mg Tab PO Q6H PRN MUSCLE PAIN Metoprolol Succinate 50 mg 12/30/22 12:45 12/30/22 13:20 Metoprolol Succinate (Er) 50 Mg Tab.Er.24h PO 50 mg DAILY [facility] Administration Montelukast Sodium 10 mg 12/31/22 09:00 Montelukast 10 Mg Tab PO DAILY [facility] Naloxone HCl 0.2 mg 12/30/22 12:31 Naloxone 0.4 Mg/Ml 1 Ml Vial IVP Q2M PRN Opioid Reversal Nitroglycerin 0.4 mg 12/30/22 12:40 Nitroglycerin Sl Tabs 0.4 Mg Tab SUBLINGUAL Q5M PRN Chest Pain Oxybutynin Chloride 10 mg 12/31/22 09:00 Oxybutynin 10 Mg Tab.Er.24 PO DAILY [facility] Pantoprazole Sodium 40 mg 12/31/22 09:00 Pantoprazole 40 Mg Tablet PO DAILY [facility] Intake and Output 12/30/22 12/31/22 12/31/22 22:59 06:59 14:59 Output Total 0 Balance 0 Output: Emesis 0 Other: # Voids 1 Weight 125.645 kg 12/30/22 10:16 12/30/22 10:16
[2022-12-31 07:45] LABS: African American GFR (CKD) 60 (>60 ml/min/1.73 sqM); Anion Gap 6 mmol/L; Blood Urea Nitrogen 18 mg/dL (7-17); Carbon Dioxide 28 mmol/L (22-30); Chloride 105 mmol/L (98-107); Glucose 112 mg/dL (74-99); Non-African American GFR(CKD) 52 (>60 ml/min/1.73 sqM); Potassium 4.2 mmol/L (3.5-5.1); Sodium 139 mmol/L (137-145)
[2022-12-31] MEDS ORDERED: ASPIRIN 325 MG TAB PO SCH (09:00)
[2022-12-31] MEDS: ALBUTEROL NEBULIZED 2.5 MG/3 ML INHALATION SCH ×4 (09:24→22:01)
[2022-12-31] MEDS: BUDESONIDE 0.5 MG/2 ML NEBU INHALATION SCH ×2 (09:24→22:01)
--- NOTE | 2022-12-31 10:54 | CA ---
Lexiscan Nuclear Stress Test Report Name: Hortencia Mcpherson Exam Date: 12/31/2022 09:31 Exam Location: [facility] Ht (in): 65 Wt (lb): 277 BSA: 2.27 Ordering Phys: Nils Carrillo MD Referring Phys: Leif, Technologist: KYE,, Age: 82 Gender: F : 1940 Procedure CPT: Indications: Reflex order-Stress test ICD-10 Codes: Patient History: Chest pain Medications: Meds past 24 hrs: Pretest Chest Pain: STRESS TEST Lexiscan Protocol Exercise Duration (min:sec): 02:[address] Depressions (mm): Angina Score: Carlton Score: Resting HR (bpm): 48 Peak HR (bpm): 65 Resting BP (mmHg): 127 / 65 Peak BP (mmHg): 130 / 56 MPHR: 140 Target HR: 119 % MPHR: 46 METS: 1.0 Total Dose: Peak Dose: Atropine: Double Product: 8450 BP Response: Stress Termination: Infusion complete Stress Symptoms: No chest pain or symptoms Stress Summary: ECG ANALYSIS Resting ECG: Stress ECG: CONCLUSIONS Nondiagnostic stress test Dr. Nils Carrillo MD (Electronically Signed) Final Date: 31 December 2022 10:53
[2022-12-31] MEDS: MONTELUKAST 10 MG TAB PO SCH (11:05)
[2022-12-31] MEDS: METOPROLOL SUCCINATE (ER) 50 MG TAB.ER.24H PO SCH (11:05)
[2022-12-31] MEDS: APIXABAN 5 MG TAB PO SCH ×2 (11:05→19:52)
[2022-12-31] MEDS: hydrALAZINE HCL 25 MG TAB PO SCH ×2 (11:05→19:52)
[2022-12-31] MEDS: GABAPENTIN 300 MG CAP PO SCH ×2 (11:05→19:52)
[2022-12-31] MEDS: PANTOPRAZOLE 40 MG TABLET PO SCH (11:05)
[2022-12-31] MEDS: ATORVASTATIN 40 MG TAB PO SCH (11:05)
[2022-12-31 11:06] LABS: Chol/HDL Ratio 2.38 Ratio; LDL Cholesterol,Calculated 97.2 mg/dL; VLDL Calculation 13.72 mg/dL
[2022-12-31] MEDS: amLODIPine 5 MG TAB PO SCH (11:06)
--- NOTE | 2022-12-31 11:51 | NM ---
EXAMINATION TYPE: NM stress lexiscan cardiolite DATE OF EXAM: 12/31/2022 COMPARISON: NONE CLINICAL INDICATION: Female, 82 years old with history of chest pain sob; TECHNIQUE: After the intravenous administration of 10.2 mCi Tc 99m Sestamibi - Cardiolite resting SP ECT images acquired 45 minutes post injection. The patient received 0.4mg Lexiscan, 25.5 mCi Tc 99m Sestamibi - Stress images obtained [address] injection FINDINGS: Review of stress and rest SPECT images demonstrates a small area reversibility at the apex of the hea rt. No other distinct perfusion abnormality. Gated analysis shows normal wall motion with an estimat ed left ventricular ejection fraction of 72 %. TID is calculated at 1.12, upper limits of normal. IMPRESSION: Possible small area of reversibility at the apex of the heart.
[2022-12-31 12:43] LABS: Glucose,Whole Blood 139 mg/dL (70-110)
[2022-12-31] MEDS: INSULIN DETEMIR (LEVEMIR) 100 UNIT/ML SYR SQ SCH (12:51)
--- NOTE | 2022-12-31 13:55 | P.PN ---
Subjective Progress Note Date: 12/31/22 82-year-old lady with past medical history significant for atrial fibrillation, hypertension, mild coronary artery disease based on cardiac catheterization in 2018, diabetes Mellitus 2 presented to the emergency department with complaints of chest pain and shortness of breath. * On 12/31 patient underwent stress test which showed reversible defect will wait for cardiology evaluation * Patient does complain of neck and back pain REVIEW OF SYSTEMS: Chest pain, shortness of breath IMPROVED CONSTITUTIONAL: No fever, no malaise, no fatigue. HEENT: No recent visual problems or hearing problems. Denied any sore throat. CARDIOVASCULAR: No orthopnea, PND, no palpitations, no syncope. PULMONARY: No , no cough, no hemoptysis. GASTROINTESTINAL: No diarrhea, no nausea, no vomiting, no abdominal pain. NEUROLOGICAL: No headaches, no weakness, no numbness. HEMATOLOGICAL: Denies any bleeding or petechiae. GENITOURINARY: Denies any burning micturition, frequency, or urgency. MUSCULOSKELETAL/RHEUMATOLOGICAL: Denies any joint pain, swelling, or any muscle pain. ENDOCRINE: Denies any polyuria or polydipsia. Objective - Vital Signs Vital signs: Vital Signs Temp 98.1 F 12/31/22 07:00 Pulse 56 L 12/31/22 13:18 Resp 16 12/31/22 07:00 BP 108/56 12/31/22 07:00 Pulse Ox 97 12/31/22 07:00 FiO2 21 12/30/22 15:32 Intake & Output 12/30/22 12/31/22 12/31/22 18:59 06:59 18:59 Output Total 0 Balance 0 Weight 125.645 kg Output: Emesis 0 Other: # Voids 2 1 - Exam GENERAL: The patient is alert and oriented x3, not in any acute distress. Well developed, well nourished. HEENT: Pupils are round and equally reacting to light. EOMI. CARDIOVASCULAR: S1 and S2 present. No murmurs, rubs, or gallops. PULMONARY: Chest is clear to auscultation, no wheezing or crackles. ABDOMEN: Soft, nontender, nondistended, normoactive bowel sounds. No palpable organomegaly. MUSCULOSKELETAL: No joint swelling or deformity. Neck discomfort EXTREMITIES: No cyanosis, clubbing, or pedal edema. NEUROLOGICAL: Gross neurological examination did not reveal any focal deficits. SKIN: No rashes. - Labs CBC & Chem 7: 12/30/22 10:16 12/31/22 07:08 Labs: Abnormal Lab Results - Last 24 Hours (Table) 12/30/22 12/31/22 12/31/22 Range/Units 21:18 07:08 07:08 BUN 18 H (7-17) mg/dL Glucose 112 H (74-99) mg/dL POC Glucose (mg/dL) 187 H (70-110) mg/dL HDL Cholesterol 80.10 H mg/dL 12/31/22 Range/Units 12:41 BUN (7-17) mg/dL Glucose (74-99) mg/dL POC Glucose (mg/dL) 139 H (70-110) mg/dL HDL Cholesterol mg/dL Assessment and Plan Assessment: Assessment and plan * Chest pain along with progressive shortness of rule out acute coronary syndrome * History of atrial fibrillation * Hypertension * Diabetes mellitus type 2 * In regards to chest pain serial troponins negative 3 sublingual nitroglycerin ordered, cardiology consulted, continue aspirin, Eliquis, Metoprolol * Gilliam was stress test shows small area of reversibility at the apex, TID 1.1 2 * Regards to atrial fibrillation continue Elqiuis and Metoprolol * In regards to diabetes mellitus continue patient on correctional insulin and Lantus, monitor for hypoglycemia * CODE STATUS discussed with patient she is full code
[2022-12-31] MEDS: OXYBUTYNIN 10 MG TAB.ER.24 PO SCH (17:13)
[2022-12-31 17:21] LABS: Glucose,Whole Blood 195 mg/dL (70-110)
[2022-12-31 20:56] LABS: Glucose,Whole Blood 146 mg/dL (70-110)
[2023-01-01 06:36] LABS: Glucose,Whole Blood 148 mg/dL (70-110)
[2023-01-01] MEDS: INSULIN ASPART (NovoLOG) 100 UNIT/ML VIAL SQ SCH ×4 (06:36→21:51)
[2023-01-01] MEDS ORDERED: ALPRAZolam 0.5 MG TAB PO PRN (08:02)
[2023-01-01] MEDS ORDERED: ASPIRIN 325 MG TAB PO STA (08:02)
[2023-01-01] MEDS ORDERED: ATORVASTATIN 80 MG TAB PO STA (08:02)
[2023-01-01] MEDS ORDERED: NITROGLYCERIN SL TABS 0.4 MG TAB SUBLINGUAL PRN (08:02)
[2023-01-01] MEDS: INSULIN DETEMIR (LEVEMIR) 100 UNIT/ML SYR SQ SCH (08:09)
[2023-01-01] MEDS: APIXABAN 5 MG TAB PO SCH (08:09)
[2023-01-01] MEDS: OXYBUTYNIN 10 MG TAB.ER.24 PO SCH (08:14)
[2023-01-01] MEDS: MONTELUKAST 10 MG TAB PO SCH (08:14)
[2023-01-01] MEDS: hydrALAZINE HCL 25 MG TAB PO SCH ×2 (08:14→20:03)
[2023-01-01] MEDS: PANTOPRAZOLE 40 MG TABLET PO SCH (08:14)
[2023-01-01] MEDS: GABAPENTIN 300 MG CAP PO SCH ×2 (08:14→20:03)
[2023-01-01] MEDS: ALBUTEROL NEBULIZED 2.5 MG/3 ML INHALATION SCH ×4 (08:15→20:51)
[2023-01-01] MEDS: BUDESONIDE 0.5 MG/2 ML NEBU INHALATION SCH ×2 (08:15→20:53)
[2023-01-01] MEDS: ATORVASTATIN 40 MG TAB PO SCH (08:15)
[2023-01-01] MEDS: SODIUM CHLORIDE 0.9% 1,000 ML in EMPTY BAG 1 BAG IV SCH ×2 (08:15→23:35)
[2023-01-01] MEDS: amLODIPine 5 MG TAB PO SCH (08:15)
[2023-01-01] MEDS ORDERED: METOPROLOL SUCCINATE (ER) 25 MG TAB.ER.24H PO SCH (09:00)
[2023-01-01 09:56] LABS: Glucose,Whole Blood 174 mg/dL (70-110)
[2023-01-01] MEDS ORDERED: IV FLUID CONTINUATION 1,000 ML IV ONE (10:29)
--- NOTE | 2023-01-01 10:55 | P.PN ---
Subjective Progress Note Date: 01/01/23 HISTORY OF PRESENT ILLNESS: The patient is a pleasant 82-year-old female patient with a past medical history significant for paroxysmal atrial fibrillation status post cardioversion recently and she has been maintaining normal sinus mechanism as well as diabetes and hypertension and dyslipidemia and preserved LV function on recent echo from 2022 presented to the hospital complaining of chest discomfort and neck discomfort. She describes discomfort in the middle of the chest as bowel/pain radiating to her neck. His heart to tell if the pain is coming from the neck all radiating to the neck. Beside that she has been experiencing shortness of breath with exertion. No dizziness or lightheadedness and no presyncope or syncope and no feeling of heart racing or fluttering. She underwent further cardiac workup including EKG showing sinus mechanism was nonspecific changes but she has been maintaining heart rate in the 50s and also she underwent cardiac enzymes came in to be unremarkable. The chest x-ray showed no acute abnormalities. Currently she is chest pain-free. No history of coronary artery disease or coronary revascularization she does have multiple risk factors including diabetes and hypertension and dyslipidemia and she is also overweight. No recent stress test was performed. The examination is remarkable for stable vital signs with heart rate in the 50s and diminished breathing sounds bilaterally and regular rate and rhythm. 01/01/2023 Patient examined this morning at the bedside. Patient continues to report shortness of breath and some mild chest pain. She reports that she feels tired this morning. Patient underwent Lexiscan stress test yesterday which was abnormal revealing possible small area of reversibility at the apex of the heart. Patient has also been bradycardic with heart rate in the 50s and occasionally dipping down into the 30s. PHYSICAL EXAM: VITAL SIGNS: Reviewed. GENERAL: Well-developed in no acute distress. NECK: Supple. No JVD or thyromegaly LUNGS: Respirations even and unlabored. Lungs essentially clear to auscultation bilaterally. HEART: Regular rate and rhythm. S1 and S2 heard. EXTREMITIES: Normal range of motion. No clubbing or cyanosis. Peripheral pulses intact. No lower extremity edema ASSESSMENT: Chest pain Sinus bradycardia Paroxysmal atrial fibrillation status post cardioversion Hypertension Hyperlipidemia Diabetes PLAN: Continue current cardiac medications Decrease dose of metoprolol to 25 mg daily Patient to undergo cardiac catheterization today with Dr. Cuevas Further recommendations pending patient's course Nurse practitioner note has been reviewed by physician. Signing provider agrees with the documented findings, assessment, and plan of care. Objective - Vital Signs Vital signs: Vital Signs Temp 97.6 F 01/01/23 07:12 Pulse 58 L 01/01/23 08:28 Resp 16 01/01/23 07:12 BP 135/76 01/01/23 07:36 Pulse Ox 97 01/01/23 08:15 FiO2 21 12/30/22 15:32 Intake & Output 12/31/22 01/01/23 01/01/23 18:59 06:59 18:59 Intake Total 118 Output Total 0 Balance 118 0 Intake: Oral 118 Output: Emesis 0 Other: # Voids 0 1 1 - Labs CBC & Chem 7: 12/30/22 10:16 12/31/22 07:08 Labs: Abnormal Lab Results - Last 24 Hours (Table) 12/31/22 12/31/22 12/31/22 Range/Units 07:08 12:41 17:20 POC Glucose (mg/dL) 139 H 195 H (70-110) mg/dL HDL Cholesterol 80.10 H mg/dL 12/31/22 01/01/23 01/01/23 Range/Units 20:55 06:34 09:55 POC Glucose (mg/dL) 146 H 148 H 174 H (70-110) mg/dL HDL Cholesterol mg/dL
[2023-01-01] MEDS ORDERED: MIDAZOLAM 2 MG/2 ML VIAL IV ONE ×2 (10:58)
[2023-01-01] MEDS ORDERED: LIDOCAINE 1% INJ 10MG/ML (5 ML VIAL-PF) SQ ONE (10:59)
[2023-01-01] MEDS ORDERED: HEPARIN SODIUM 1,000 UN/ML (10ML VL) IV ONE ×2 (11:06→11:27)
[2023-01-01] MEDS ORDERED: VERAPAMIL SYRINGE (5 MG/10 ML) INTRAARTER ONE (11:06)
[2023-01-01] MEDS ORDERED: NITROGLYCERIN 1000MCG/10ML SYRINGE INTRAARTER ONE (11:42)
[2023-01-01] MEDS ORDERED: ZOLPIDEM 5 MG TAB PO PRN (11:56)
[2023-01-01] MEDS ORDERED: RX INFO: IV CONTRAST WAS GIVEN 1 EACH MISC MISCELLANE PRN (11:56)
[2023-01-01] MEDS ORDERED: ATROPINE SULFATE 0.1 MG/ML 10ML SYRINGE IV PRN (11:56)
[2023-01-01] MEDS ORDERED: MAG HYDROX/AL HYDROX/SIMETH 30 ML CUP PO PRN (11:56)
[2023-01-01] MEDS ORDERED: IOPAMIDOL-370 100ML BTL INJ ONE (12:00)
[2023-01-01] MEDS ORDERED: CLOPIDOGREL 75 MG TAB PO ONE (12:00)
[2023-01-01 13:09] LABS: Glucose,Whole Blood 131 mg/dL (70-110)
--- NOTE | 2023-01-01 13:24 | P.PN ---
Subjective Progress Note Date: 01/01/23 82-year-old lady with past medical history significant for atrial fibrillation, hypertension, mild coronary artery disease based on cardiac catheterization in 2018, diabetes Mellitus 2 presented to the emergency department with complaints of chest pain and shortness of breath. * On 12/31> patient underwent stress test which showed reversible defect will wait for cardiology evaluation , Patient does complain of neck and back pain, Lexiscan Scan Positive * On 01/01> patient seen by cardiology and underwent cardiac catheterization PCI of LAD done, postprocedure patient was bradycardic will be moved to stepdown unit REVIEW OF SYSTEMS: Chest pain, shortness of breath IMPROVED , CONSTITUTIONAL: No fever, no malaise, no fatigue. HEENT: No recent visual problems or hearing problems. Denied any sore throat. CARDIOVASCULAR: No orthopnea, PND, no palpitations, no syncope. PULMONARY: No , no cough, no hemoptysis. GASTROINTESTINAL: No diarrhea, no nausea, no vomiting, no abdominal pain. NEUROLOGICAL: No headaches, no weakness, no numbness. HEMATOLOGICAL: Denies any bleeding or petechiae. GENITOURINARY: Denies any burning micturition, frequency, or urgency. MUSCULOSKELETAL/RHEUMATOLOGICAL: Denies any joint pain, swelling, or any muscle pain. ENDOCRINE: Denies any polyuria or polydipsia. Objective - Vital Signs Vital signs: Vital Signs Temp 97.7 F 01/01/23 12:00 Pulse 31 L 01/01/23 13:00 Resp 17 01/01/23 12:00 BP 119/55 01/01/23 13:00 Pulse Ox 98 01/01/23 13:00 FiO2 21 12/30/22 15:32 Intake & Output 12/31/22 01/01/23 01/01/23 18:59 06:59 18:59 Intake Total 118 500 Output Total 0 Balance 118 0 500 Intake: IV 500 Oral 118 Output: Emesis 0 Other: # Voids 0 1 1 - Exam GENERAL: The patient is alert and oriented x3, not in any acute distress. Well developed, well nourished. HEENT: Pupils are round and equally reacting to light. EOMI. CARDIOVASCULAR: Irregular rhythm bradycardia noted PULMONARY: Chest is clear to auscultation, no wheezing or crackles. ABDOMEN: Soft, nontender, nondistended, normoactive bowel sounds. No palpable organomegaly. MUSCULOSKELETAL: No joint swelling or deformity. Neck discomfort EXTREMITIES: No cyanosis, clubbing, or pedal edema. NEUROLOGICAL: Gross neurological examination did not reveal any focal deficits. SKIN: No rashes. - Labs CBC & Chem 7: 12/30/22 10:16 12/31/22 07:08 Labs: Abnormal Lab Results - Last 24 Hours (Table) 12/31/22 12/31/22 01/01/23 Range/Units 17:20 20:55 06:34 POC Glucose (mg/dL) 195 H 146 H 148 H (70-110) mg/dL 01/01/23 01/01/23 Range/Units 09:55 13:06 POC Glucose (mg/dL) 174 H 131 H (70-110) mg/dL Assessment and Plan Assessment: Assessment and plan * Coronary artery disease with abnormal stress test status post PCI * History of atrial fibrillation * Hypertension * Diabetes mellitus type 2 * In regards to chest pain serial troponins negative 3 , patient had a positive Lexiscan, status post cardiac catheterization 01/01 with PCi LAD * Continue patient on aspirin, Eliquis, Plavix, cardiology following * Regards to atrial fibrillation continue Elqiuis and Metoprolol>> transient episode of bradycardia noted postprocedure we'll monitor and transferred to 3 S. cardiac telemetry * In regards to diabetes mellitus continue patient on correctional insulin and Lantus, monitor for hypoglycemia * CODE STATUS discussed with patient she is full code Time with Patient: Greater than 30
--- NOTE | 2023-01-01 14:28 | CC ---
CARDIAC CATHETERIZATION REPORT DATE OF SERVICE: 01/01/2023. PROCEDURES PERFORMED: 1. Left heart catheterization and coronary angiography. 2. Percutaneous transluminal coronary angioplasty and stenting of mid left anterior descending with a drug-eluting stent. PERFORMED BY: Dr. Precious Cuevas. ANESTHESIA: Moderate conscious sedation time was 54 minutes. The patient was administered Versed. Oxygen saturation, hemodynamics, and EKG were monitored closely. CLINICAL INFORMATION: Ms. Hortencia Mcpherson is an 82-year-old lady with a history of type 2 diabetes, hypertension, hyperlipidemia, and paroxysmal atrial fibrillation, who underwent electrical cardioversion in September of this year. Five years ago, she had a cardiac catheterization in 2018, which revealed about a 35% mid LAD lesion and also ostial circumflex lesion of a nondominant circumflex. She was on medical therapy, doing well. She came into the hospital with episode of chest pain, had a positive stress test with apical ischemia and preserved ejection fraction. She was advised cardiac catheterization after due discussion regarding the risks, benefits, and options. She was advised cardiac catheterization and was brought in for the procedure. PROCEDURE NOTE: Under local anesthesia and strict aseptic precautions, a 6-Israeli introducer was placed in the right radial artery. Using JL3.5 and JR4 catheters, I performed coronary angiography. There was some tortuosity in her subclavian and aortic arch area. Following the cardiac catheterization, I noted that she had a significant lesion in the mid LAD up to 80% to 90%. She was advised intervention that was performed in the same setting. LV pressures were obtained, but LV-gram was not performed. Following the procedure, a TR band was applied with good hemostasis, and saturation in the fingers of the right hand was 97%. The patient tolerated the procedure well without complication. There were no family members available for me to talk to. She received 600 mg of Plavix. She weighs about 126 kg. She received 7500 units of heparin, and ACT was 320, and after the procedure, it was about 228. She was given 600 mg of Plavix. She will be on Plavix and Eliquis combination uninterrupted for 1 year. CARDIAC CATHETERIZATION FINDINGS: The left ventricular end-diastolic pressure was about 13 mmHg without any gradient across aortic valve. CORONARY ANGIOGRAPHY FINDINGS: RIGHT CORONARY ARTERY: Large dominant vessel. No significant disease. Distally bifurcates into 2 small branches, PDA and PLV, which have no significant disease, but the vessels are small intrinsically. LEFT MAIN CORONARY ARTERY: Short, patent, disease-free vessel that immediately bifurcates into LAD and circumflex. No significant disease. LEFT ANTERIOR DESCENDING CORONARY ARTERY: Good-caliber vessel, gives off a diagonal and a septal branch. The diagonal branch comes off very proximally. In the midportion, there is a new 85% to 90% stenosis, focal with haziness, which may be the culprit lesion. The diagonal has minor irregularities, and beyond the mid LAD lesion, there is another 35% narrowing noted. The LAD is a smaller caliber vessel but large in distribution, curves over the apex to supply the inferoapical portion. LAD, therefore, has a mid lesion after large diagonal and septal branch. Stenosis is 85% to 90%. LEFT POSTERIOR CIRCUMFLEX CORONARY ARTERY: Technically a nondominant vessel, has a proximal lesion of about 35% to 40% and gives off a single obtuse marginal, then runs in the AV groove. The obtuse marginal and the AV groove branch have minor irregularities. No significant disease. The proximal/ostial lesion of 35% is unchanged from the previous study from 2018, at [facility]. LEFT VENTRICULOGRAM: Left ventriculogram was not performed. FINAL IMPRESSION: This patient has normal filling pressures. No gradient. Right-dominant system. A new lesion involving the mid left anterior descending of 85% to 90%, focal. The circumflex ostium has a 35% narrowing. Right coronary artery is free of significant disease. The left main is free of significant disease. RECOMMENDATIONS: I recommended PCI of mid LAD and proceeded to perform this in the same setting. PCI PROCEDURE DETAILS: I used a JL3.5 guide catheter and a Runthrough wire. The lesion was crossed. The wire was kept distally. The patient received about 7500 units of heparin. Predilatation was performed with a 2.5-caliber 12-mm long NC Trek balloon. I then deployed a 12-mm long Xience stent of 3.0 caliber. This was deployed at 14 atmospheres. The patient had mild chest discomfort. No significant EKG changes. Excellent angiographic result was achieved without complication. IVUS was not immediately available. Angiographic result was excellent. Details were discussed with the patient. No family was available. She will be discharged hopefully tomorrow. I will add a small dose of losartan 25 mg daily and increase the Lipitor to 80 mg daily. She has received 600 mg of Plavix. She will be on Plavix and Eliquis combination uninterrupted for 1 year. The patient was sent to the room in a stable condition. REINA / OMAIRA: [id number] /
--- NOTE | 2023-01-01 15:02 | XR ---
EXAMINATION TYPE: XR chest 1V portable DATE OF EXAM: 01/01/2023 2:57 PM COMPARISON: Chest radiographs from 12/30/2022 TECHNIQUE: XR chest 1V portable Portable AP radiograph of the chest. CLINICAL INDICATION:Female, 82 years old with history of Shortness of breath; FINDINGS: Lungs/Pleura: There is no evidence of pleural effusion, focal consolidation, or pneumothorax. Chroni c senescent parenchymal change. Pulmonary vascularity: Mild pulmonary vascular congestion. Heart/mediastinum: Cardiomediastinal silhouette is prominent in size. Musculoskeletal: No acute osseous pathology. Multilevel thoracic vertebral augmentation changes. IMPRESSION: Prominent size heart and mild pulmonary vascular congestion. Correlate with BNP for congestive heart failure.
[2023-01-01] MEDS ORDERED: BACLOFEN 10 MG TAB PO PRN (15:20)
[2023-01-01 16:02] LABS: African American GFR (CKD) 48 (>60 ml/min/1.73 sqM); Anion Gap 10 mmol/L; Blood Urea Nitrogen 22 mg/dL (7-17); Calcium 8.8 mg/dL (8.4-10.2); Carbon Dioxide 22 mmol/L (22-30); Chloride 106 mmol/L (98-107); Glucose 187 mg/dL (74-99); Magnesium 2.2 mg/dL (1.6-2.3); Non-African American GFR(CKD) 42 (>60 ml/min/1.73 sqM); Potassium 4.8 mmol/L (3.5-5.1); Sodium 138 mmol/L (137-145)
[2023-01-01] MEDS: ALPRAZolam 0.25 MG TAB PO PRN (16:22)
[2023-01-01 17:13] LABS: Glucose,Whole Blood 188 mg/dL (70-110)
[2023-01-01] MEDS: LOSARTAN 25 MG TAB PO SCH (20:03)
[2023-01-01 20:59] LABS: Glucose,Whole Blood 198 mg/dL (70-110)
[2023-01-01] MEDS: methocarbamoL 500 MG TAB PO PRN (22:36)
[2023-01-02] MEDS: HYDROcodone/APAP 7.5-325MG 1 EACH TAB PO PRN ×3 (05:22→17:30)
[2023-01-02] MEDS: ALPRAZolam 0.25 MG TAB PO PRN ×3 (05:23→17:30)
[2023-01-02 06:12] LABS: Glucose,Whole Blood 145 mg/dL (70-110)
[2023-01-02] MEDS: INSULIN DETEMIR (LEVEMIR) 100 UNIT/ML SYR SQ SCH (06:44)
[2023-01-02] MEDS: INSULIN ASPART (NovoLOG) 100 UNIT/ML VIAL SQ SCH ×4 (06:48→20:51)
[2023-01-02] MEDS ORDERED: HEPARIN SODIUM,PORCINE 10,000 UNIT in SODIUM CHLORIDE 0.9% 1,000 ML IRRIGATION PRN (07:00)
[2023-01-02] MEDS ORDERED: HEPARIN SODIUM,PORCINE 2,500 UNIT in SODIUM CHLORIDE 0.9% 250 ML IRRIGATION PRN (07:00)
[2023-01-02] MEDS: PANTOPRAZOLE 40 MG TABLET PO SCH (08:04)
[2023-01-02] MEDS: LOSARTAN 25 MG TAB PO SCH (08:04)
[2023-01-02] MEDS: GABAPENTIN 300 MG CAP PO SCH ×2 (08:04→19:43)
[2023-01-02] MEDS: OXYBUTYNIN 10 MG TAB.ER.24 PO SCH (08:04)
[2023-01-02] MEDS: CLOPIDOGREL 75 MG TAB PO SCH (08:04)
[2023-01-02] MEDS: amLODIPine 5 MG TAB PO SCH (08:04)
[2023-01-02] MEDS: APIXABAN 5 MG TAB PO SCH ×2 (08:05→19:43)
[2023-01-02] MEDS: MONTELUKAST 10 MG TAB PO SCH (08:05)
[2023-01-02] MEDS: ATORVASTATIN 80 MG TAB PO SCH (08:05)
[2023-01-02] MEDS: hydrALAZINE HCL 25 MG TAB PO SCH ×2 (08:05→19:44)
[2023-01-02] MEDS: BUDESONIDE 0.5 MG/2 ML NEBU INHALATION SCH ×2 (08:17→21:56)
[2023-01-02] MEDS: ALBUTEROL NEBULIZED 2.5 MG/3 ML INHALATION SCH ×4 (08:17→21:56)
[2023-01-02 08:28] LABS: Basophils % (A) 0 %; Eosinophils # (A) 0.1 k/uL (0-0.7); Eosinophils % (A) 2 %; HCT 36.5 % (34.0-46.0); HGB 11.7 gm/dL (11.4-16.0); Hypochromasia Slight; Lymphocytes # (A) 0.6 k/uL (1.0-4.8); Lymphocytes % (A) 7 %; MCH 31.3 pg (25.0-35.0); MCV 97.8 fL (80.0-100.0); Mean Platelet Volume 8.6; Monocytes # (A) 0.5 k/uL (0-1.0); Monocytes % (A) 6 %; Neutrophils # (A) 6.9 k/uL (1.3-7.7); Neutrophils % (A) 83 %; Platelet Count 250 k/uL (150-450); RBC 3.73 m/uL (3.80-5.40); RDW 13.1 % (11.5-15.5); WBC 8.3 k/uL (3.8-10.6)
[2023-01-02] MEDS: methocarbamoL 500 MG TAB PO PRN ×2 (08:31→14:58)
[2023-01-02 08:38] LABS: African American GFR (CKD) 60 (>60 ml/min/1.73 sqM); Anion Gap 9 mmol/L; Blood Urea Nitrogen 22 mg/dL (7-17); Carbon Dioxide 23 mmol/L (22-30); Chloride 106 mmol/L (98-107); Glucose 155 mg/dL (74-99); Non-African American GFR(CKD) 52 (>60 ml/min/1.73 sqM); Potassium 4.3 mmol/L (3.5-5.1); Sodium 138 mmol/L (137-145)
[2023-01-02] MEDS ORDERED: FUROSEMIDE 10 MG/ML 2 ML VIAL IV ONE (08:47)
[2023-01-02] MEDS ORDERED: METOPROLOL SUCCINATE (ER) 25 MG TAB.ER.24H PO SCH (09:00)
[2023-01-02] MEDS ORDERED: ASPIRIN 81 MG PO SCH (09:00)
[2023-01-02 11:57] LABS: Glucose,Whole Blood 191 mg/dL (70-110)
[2023-01-02 12:18] VITALS: BMI 46.0
--- NOTE | 2023-01-02 12:23 | P.PN ---
Subjective Progress Note Date: 01/02/23 82-year-old lady with past medical history significant for atrial fibrillation, hypertension, mild coronary artery disease based on cardiac catheterization in 2018, diabetes Mellitus 2 presented to the emergency department with complaints of chest pain and shortness of breath. * On 12/31> patient underwent stress test which showed reversible defect will wait for cardiology evaluation , Patient does complain of neck and back pain, Lexiscan Scan Positive * On 01/01> patient seen by cardiology and underwent cardiac catheterization PCI of LAD done, postprocedure patient was bradycardic will be moved to stepdown unit, patient underwent rapid response called secondary to bradycardia. Discussed with on-call cardiology recommended to monitor did not give atropine no dopamine drip without ale discontinued * On 01/02>> heart rate has improved slightly in 40s, patient asymptomatic does complain of generalized pain including spasms which is chronic for her started on lidocaine patch continue with Levoxine as well REVIEW OF SYSTEMS: Chest pain, shortness of breath IMPROVED CONSTITUTIONAL: No fever, no malaise, no fatigue. HEENT: No recent visual problems or hearing problems. Denied any sore throat. CARDIOVASCULAR: No orthopnea, PND, no palpitations, no syncope. PULMONARY: No , no cough, no hemoptysis. GASTROINTESTINAL: No diarrhea, no nausea, no vomiting, no abdominal pain. NEUROLOGICAL: No headaches, no weakness, no numbness. HEMATOLOGICAL: Denies any bleeding or petechiae. GENITOURINARY: Denies any burning micturition, frequency, or urgency. MUSCULOSKELETAL/RHEUMATOLOGICAL: Diffuse muscle spasms ENDOCRINE: Denies any polyuria or polydipsia. Objective - Vital Signs Vital signs: Vital Signs Temp 97.6 F 01/02/23 07:57 Pulse 41 L 01/02/23 12:19 Resp 22 01/02/23 11:04 BP 109/43 01/02/23 11:04 Pulse Ox 97 01/02/23 11:04 FiO2 21 01/02/23 08:19 Intake & Output 01/01/23 01/02/23 01/02/23 18:59 06:59 18:59 Intake Total 618 270 236 Balance 618 270 236 Weight 125.645 kg Intake: IV 500 Oral 118 270 236 Other: Voiding Method Toilet Toilet # Voids 1 1 - Exam GENERAL: The patient is alert and oriented x3, not in any acute distress. Well developed, well nourished. HEENT: Pupils are round and equally reacting to light. EOMI. CARDIOVASCULAR: Irregular rhythm bradycardia noted PULMONARY: Chest is clear to auscultation, no wheezing or crackles. ABDOMEN: Soft, nontender, nondistended, normoactive bowel sounds. No palpable organomegaly. MUSCULOSKELETAL: No joint swelling or deformity. Neck discomfort EXTREMITIES: No cyanosis, clubbing, or pedal edema. NEUROLOGICAL: Gross neurological examination did not reveal any focal deficits. SKIN: No rashes. - Labs CBC & Chem 7: 01/02/23 07:11 01/02/23 07:11 Labs: Abnormal Lab Results - Last 24 Hours (Table) 01/01/23 01/01/23 01/01/23 Range/Units 13:06 14:59 17:10 RBC (3.80-5.40) m/uL Lymphocytes # (1.0-4.8) k/uL BUN 22 H (7-17) mg/dL Creatinine 1.22 H (0.52-1.04) mg/dL Glucose 187 H (74-99) mg/dL POC Glucose (mg/dL) 131 H 188 H (70-110) mg/dL 01/01/23 01/02/23 01/02/23 Range/Units 20:54 05:54 07:11 RBC (3.80-5.40) m/uL Lymphocytes # (1.0-4.8) k/uL BUN 22 H (7-17) mg/dL Creatinine (0.52-1.04) mg/dL Glucose 155 H (74-99) mg/dL POC Glucose (mg/dL) 198 H 145 H (70-110) mg/dL 01/02/23 01/02/23 Range/Units 07:11 11:45 RBC 3.73 L (3.80-5.40) m/uL Lymphocytes # 0.6 L (1.0-4.8) k/uL BUN (7-17) mg/dL Creatinine (0.52-1.04) mg/dL Glucose (74-99) mg/dL POC Glucose (mg/dL) 191 H (70-110) mg/dL Assessment and Plan Assessment: Assessment and plan * Coronary artery disease with abnormal stress test status post PCI * History of atrial fibrillation, with transient bradycardia and junctional rhythm * Hypertension * Diabetes mellitus type 2 * In regards to chest pain serial troponins negative 3 , patient had a positive Lexiscan, status post cardiac catheterization 01/01 with PCI LAD * Continue patient on aspirin, Eliquis, Plavix, cardiology following * Regards to atrial fibrillation continue Elqiuis , metoprolol discontinued secondary to bradycardia>> transient episode of bradycardia noted postprocedure transferred to 3 S. cardiac telemetry * In regards to diabetes mellitus continue patient on correctional insulin and Lantus, monitor for hypoglycemia * CODE STATUS discussed with patient she is full code Time with Patient: Greater than 30
[2023-01-02] MEDS: LIDOCAINE 5% PATCH TOPICAL SCH (13:21)
--- NOTE | 2023-01-02 14:09 | P.PN ---
Subjective Progress Note Date: 01/02/23 HISTORY OF PRESENT ILLNESS: The patient is a pleasant 82-year-old female patient with a past medical history significant for paroxysmal atrial fibrillation status post cardioversion recently and she has been maintaining normal sinus mechanism as well as diabetes and hypertension and dyslipidemia and preserved LV function on recent echo from 2022 presented to the hospital complaining of chest discomfort and neck discomfort. She describes discomfort in the middle of the chest as bowel/pain radiating to her neck. His heart to tell if the pain is coming from the neck all radiating to the neck. Beside that she has been experiencing shortness of breath with exertion. No dizziness or lightheadedness and no presyncope or syncope and no feeling of heart racing or fluttering. She underwent further cardiac workup including EKG showing sinus mechanism was nonspecific changes but she has been maintaining heart rate in the 50s and also she underwent cardiac enzymes came in to be unremarkable. The chest x-ray showed no acute abnormalities. Currently she is chest pain-free. No history of coronary artery disease or coronary revascularization she does have multiple risk factors including diabetes and hypertension and dyslipidemia and she is also overweight. No recent stress test was performed. The examination is remarkable for stable vital signs with heart rate in the 50s and diminished breathing sounds bilaterally and regular rate and rhythm. 01/01/2023 Patient examined this morning at the bedside. Patient continues to report shortness of breath and some mild chest pain. She reports that she feels tired this morning. Patient underwent Lexiscan stress test yesterday which was abnor mal revealing possible small area of reversibility at the apex of the heart. Patient has also been bradycardic with heart rate in the 50s and occasionally dipping down into the 30s. 01/02 Patient has been transferred to the cardiac stepdown unit. Patient received 1 dose of metoprolol yesterday at a reduced strength and this has been discontinued. She has not received any beta ale today. She denies having any chest pain, palpitations, lightheadedness or dizziness. She denies any shortness of breath. She is complaining of muscle spasms in her back. Heart rate has been running 30s and 40s. Telemetry is showing junctional/sinus bradycardia. PHYSICAL EXAM: VITAL SIGNS: Reviewed. GENERAL: Well-developed in no acute distress. NECK: Supple. No JVD or thyromegaly LUNGS: Respirations even and unlabored. Lungs essentially clear to auscultation bilaterally. HEART: Regular rate and rhythm. S1 and S2 heard. EXTREMITIES: Normal range of motion. No clubbing or cyanosis. Peripheral pu lses intact. No lower extremity edema ASSESSMENT: Chest pain Sinus bradycardia Paroxysmal atrial fibrillation status post cardioversion Hypertension Hyperlipidemia Diabetes PLAN: Continue current cardiac medications No BB at discharge AMbulate patient and monitor HR response. If patient's heart rate but just with activity, patient is cleared for discharge home. Follow up with Dr. Cuevas in one week Nurse practitioner note has been reviewed by physician. Signing provider agrees with the documented findings, assessment, and plan of care. Objective - Vital Signs Vital signs: Vital Signs Temp 97.6 F 01/02/23 07:57 Pulse 39 L 01/02/23 11:04 Resp 22 01/02/23 11:04 BP 109/43 01/02/23 11:04 Pulse Ox 97 01/02/23 11:04 FiO2 21 01/02/23 08:19 Intake & Output 01/01/23 01/02/23 01/02/23 18:59 06:59 18:59 Intake Total 618 270 236 Balance 618 270 236 Intake: IV 500 Oral 118 270 236 Other: Voiding Method Toilet Toilet # Voids 1 1 - Labs CBC & Chem 7: 01/02/23 07:11 01/02/23 07:11 Labs: Abnormal Lab Results - Last 24 Hours (Table) 01/01/23 01/01/23 01/01/23 Range/Units 13:06 14:59 17:10 RBC (3.80-5.40) m/uL Lymphocytes # (1.0-4.8) k/uL BUN 22 H (7-17) mg/dL Creatinine 1.22 H (0.52-1.04) mg/dL Glucose 187 H (74-99) mg/dL POC Glucose (mg/dL) 131 H 188 H (70-110) mg/dL 01/01/23 01/02/23 01/02/23 Range/Units 20:54 05:54 07:11 RBC (3.80-5.40) m/uL Lymphocytes # (1.0-4.8) k/uL BUN 22 H (7-17) mg/dL Creatinine (0.52-1.04) mg/dL Glucose 155 H (74-99) mg/dL POC Glucose (mg/dL) 198 H 145 H (70-110) mg/dL 01/02/23 Range/Units 07:11 RBC 3.73 L (3.80-5.40) m/uL Lymphocytes # 0.6 L (1.0-4.8) k/uL BUN (7-17) mg/dL Creatinine (0.52-1.04) mg/dL Glucose (74-99) mg/dL POC Glucose (mg/dL) (70-110) mg/dL
[2023-01-02 16:37] LABS: Glucose,Whole Blood 172 mg/dL (70-110)
[2023-01-02 20:40] LABS: Glucose,Whole Blood 168 mg/dL (70-110)
[2023-01-03 05:49] LABS: Glucose,Whole Blood 154 mg/dL (70-110)
[2023-01-03] MEDS: INSULIN DETEMIR (LEVEMIR) 100 UNIT/ML SYR SQ SCH (06:11)
[2023-01-03] MEDS: INSULIN ASPART (NovoLOG) 100 UNIT/ML VIAL SQ SCH ×4 (06:11→20:40)
[2023-01-03] MEDS: HYDROcodone/APAP 7.5-325MG 1 EACH TAB PO PRN (06:12)
[2023-01-03] MEDS: BUDESONIDE 0.5 MG/2 ML NEBU INHALATION SCH ×2 (07:35→20:52)
[2023-01-03] MEDS: ALBUTEROL NEBULIZED 2.5 MG/3 ML INHALATION SCH ×4 (07:35→20:52)
[2023-01-03] MEDS: SODIUM CHLORIDE 0.9% 1,000 ML IV SCH ×2 (08:26→08:34)
[2023-01-03] MEDS: OXYBUTYNIN 10 MG TAB.ER.24 PO SCH (08:34)
[2023-01-03] MEDS: LOSARTAN 25 MG TAB PO SCH (08:34)
[2023-01-03] MEDS: ATORVASTATIN 80 MG TAB PO SCH (08:34)
[2023-01-03] MEDS: CLOPIDOGREL 75 MG TAB PO SCH (08:34)
[2023-01-03] MEDS: PANTOPRAZOLE 40 MG TABLET PO SCH (08:34)
[2023-01-03] MEDS: hydrALAZINE HCL 25 MG TAB PO SCH ×2 (08:34→20:40)
[2023-01-03] MEDS: MONTELUKAST 10 MG TAB PO SCH (08:34)
[2023-01-03] MEDS: LIDOCAINE 5% PATCH TOPICAL SCH (08:34)
[2023-01-03] MEDS: GABAPENTIN 300 MG CAP PO SCH ×2 (08:34→20:40)
[2023-01-03] MEDS: amLODIPine 5 MG TAB PO SCH (08:34)
--- NOTE | 2023-01-03 09:03 | P.PN ---
Subjective Progress Note Date: 01/03/23 HISTORY OF PRESENT ILLNESS: The patient is a pleasant 82-year-old female patient with a past medical history significant for paroxysmal atrial fibrillation status post cardioversion recently and she has been maintaining normal sinus mechanism as well as diabetes and hypertension and dyslipidemia and preserved LV function on recent echo from 2022 presented to the hospital complaining of chest discomfort and neck discomfort. She describes discomfort in the middle of the chest as bowel/pain radiating to her neck. His heart to tell if the pain is coming from the neck all radiating to the neck. Beside that she has been experiencing shortness of breath with exertion. No dizziness or lightheadedness and no presyncope or syncope and no feeling of heart racing or fluttering. She underwent further cardiac workup including EKG showing sinus mechanism was nonspecific changes but she has been maintaining heart rate in the 50s and also she underwent cardiac enzymes came in to be unremarkable. The chest x-ray showed no acute abnormalities. Currently she is chest pain-free. No history of coronary artery disease or coronary revascularization she does have multiple risk factors including diabetes and hypertension and dyslipidemia and she is also overweight. No recent stress test was performed. The examination is remarkable for stable vital signs with heart rate in the 50s and diminished breathing sounds bilaterally and regular rate and rhythm. 01/01/2023 Patient examined this morning at the bedside. Patient continues to report shortness of breath and some mild chest pain. She reports that she feels tired this morning. Patient underwent Lexiscan stress test yesterday which was abnor mal revealing possible small area of reversibility at the apex of the heart. Patient has also been bradycardic with heart rate in the 50s and occasionally dipping down into the 30s. 01/02 Patient has been transferred to the cardiac stepdown unit. Patient received 1 dose of metoprolol yesterday at a reduced strength and this has been discontinued. She has not received any beta ale today. She denies having any chest pain, palpitations, lightheadedness or dizziness. She denies any shortness of breath. She is complaining of muscle spasms in her back. Heart rate has been running 30s and 40s. Telemetry is showing junctional/sinus bradycardia. 01/03 Patient is seen today in follow up. Patient ambulated yesterday afternoon and HR went into low 50s but patient had significant shortness of breath and was not able to ambulate back to her room. She states that normally she only walks 17 s teps from her chair to her kitchen and is short of breath at home. She feels that her heart rate has been low for some time. Patient has now been off beta ale for 48 hours. PHYSICAL EXAM: VITAL SIGNS: Reviewed. GENERAL: Well-developed in no acute distress. NECK: Supple. No JVD or thyromegaly LUNGS: Respirations even and unlabored. Lungs essentially clear to auscultation bilaterally. HEART: Regular rate and rhythm. S1 and S2 heard. EXTREMITIES: Normal range of motion. No clubbing or cyanosis. Peripheral pulses intact. No lower extremity edema ASSESSMENT: Chest pain Sinus bradycardia Paroxysmal atrial fibrillation status post cardioversion Hypertension Hyperlipidemia Diabetes PLAN: Continue current cardiac medications Continue to hold beta ale Patient will be scheduled for pacemaker implantation tomorrow, discontinue eliquis for now At time of discharge, patient to follow up with Dr. Cuevas in one week Nurse practitioner note has been reviewed by physician. Signing provider agrees with the documented findings, assessment, and plan of care. Objective - Vital Signs Vital signs: Vital Signs Temp 98 F 01/03/23 03:28 Pulse 56 L 01/03/23 07:37 Resp 14 01/03/23 03:28 BP 123/69 01/03/23 03:28 Pulse Ox 93 L 01/03/23 07:37 FiO2 21 01/03/23 07:37 Intake & Output 01/02/23 01/03/23 01/03/23 18:59 06:59 18:59 Intake Total 594 Output Total 0 Balance 594 0 Weight 125.645 kg Intake: Oral 594 Output: Emesis 0 Other: Voiding Method Toilet Toilet # Voids 2 2 - Labs CBC & Chem 7: 01/02/23 07:11 01/02/23 07:11 Labs: Abnormal Lab Results - Last 24 Hours (Table) 01/02/23 01/02/23 01/02/23 Range/Units 07:11 07:11 11:45 RBC 3.73 L (3.80-5.40) m/uL Lymphocytes # 0.6 L (1.0-4.8) k/uL BUN 22 H (7-17) mg/dL Glucose 155 H (74-99) mg/dL POC Glucose (mg/dL) 191 H (70-110) mg/dL 01/02/23 01/02/23 01/03/23 Range/Units 16:36 20:39 05:47 RBC (3.80-5.40) m/uL Lymphocytes # (1.0-4.8) k/uL BUN (7-17) mg/dL Glucose (74-99) mg/dL POC Glucose (mg/dL) 172 H 168 H 154 H (70-110) mg/dL
[2023-01-03 09:28] LABS: African American GFR (CKD) 34 (>60 ml/min/1.73 sqM); Anion Gap 8 mmol/L; Blood Urea Nitrogen 30 mg/dL (7-17); Calcium 8.6 mg/dL (8.4-10.2); Carbon Dioxide 26 mmol/L (22-30); Chloride 103 mmol/L (98-107); Glucose 168 mg/dL (74-99); Magnesium 2.2 mg/dL (1.6-2.3); Non-African American GFR(CKD) 30 (>60 ml/min/1.73 sqM); Potassium 4.5 mmol/L (3.5-5.1); Sodium 137 mmol/L (137-145)
[2023-01-03 11:58] LABS: Glucose,Whole Blood 172 mg/dL (70-110)
--- NOTE | 2023-01-03 12:13 | P.PN ---
Subjective Progress Note Date: 01/03/23 82-year-old lady with past medical history significant for atrial fibrillation, hypertension, mild coronary artery disease based on cardiac catheterization in 2018, diabetes Mellitus 2 presented to the emergency department with complaints of chest pain and shortness of breath. * On 12/31> patient underwent stress test which showed reversible defect will wait for cardiology evaluation , Patient does complain of neck and back pain, Lexiscan Scan Positive * On 01/01> patient seen by cardiology and underwent cardiac catheterization PCI of LAD done, postprocedure patient was bradycardic will be moved to stepdown unit, patient underwent rapid response called secondary to bradycardia. Discussed with on-call cardiology recommended to monitor did not give atropine no dopamine drip without ale discontinued * On 01/02>> heart rate has improved slightly in 40s, patient asymptomatic does complain of generalized pain including spasms which is chronic for her started on lidocaine patch * On 01/03>> patient seen and evaluated bedside alert and oriented 3, states shortness of breath has improved, seen by cardiology planning pacemaker placement 01/04, noted to have elevated creatinine, started on IV fluid normal saline. Heart rate has improved as well REVIEW OF SYSTEMS: Chest pain, shortness of breath IMPROVED CONSTITUTIONAL: No fever, no malaise, no fatigue. HEENT: No recent visual problems or hearing problems. Denied any sore throat. CARDIOVASCULAR: No orthopnea, PND, no palpitations, no syncope. PULMONARY: No , no cough, no hemoptysis. GASTROINTESTINAL: No diarrhea, no nausea, no vomiting, no abdominal pain. NEUROLOGICAL: No headaches, no weakness, no numbness. HEMATOLOGICAL: Denies any bleeding or petechiae. GENITOURINARY: Denies any burning micturition, frequency, or urgency. MUSCULOSKELETAL/RHEUMATOLOGICAL: Diffuse muscle spasms ENDOCRINE: Denies any polyuria or polydipsia. Objective - Vital Signs Vital signs: Vital Signs Temp 97.6 F 01/03/23 08:26 Pulse 60 01/03/23 11:21 Resp 18 01/03/23 11:21 BP 117/63 01/03/23 11:21 Pulse Ox 95 01/03/23 11:21 FiO2 21 01/03/23 07:37 Intake & Output 01/02/23 01/03/23 01/03/23 18:59 06:59 18:59 Intake Total 594 360 Output Total 0 Balance 594 0 360 Weight 125.645 kg Intake: Oral 594 360 Output: Emesis 0 Other: Voiding Method Toilet Toilet Toilet # Voids 2 2 - Exam GENERAL: The patient is alert and oriented x3, not in any acute distress. Well developed, well nourished. HEENT: Pupils are round and equally reacting to light. EOMI. CARDIOVASCULAR: Irregular rhythm, heart rate has improved, heart rate in 50s PULMONARY: Chest is clear to auscultation, no wheezing or crackles. ABDOMEN: Soft, nontender, nondistended, normoactive bowel sounds. No palpable organomegaly. MUSCULOSKELETAL: No joint swelling or deformity. Chronic Neck discomfort EXTREMITIES: No cyanosis, clubbing, or pedal edema. NEUROLOGICAL: Gross neurological examination did not reveal any focal deficits. SKIN: No rashes. - Labs CBC & Chem 7: 01/02/23 07:11 01/03/23 07:54 Labs: Abnormal Lab Results - Last 24 Hours (Table) 01/02/23 01/02/23 01/03/23 Range/Units 16:36 20:39 05:47 BUN (7-17) mg/dL Creatinine (0.52-1.04) mg/dL Glucose (74-99) mg/dL POC Glucose (mg/dL) 172 H 168 H 154 H (70-110) mg/dL 01/03/23 01/03/23 Range/Units 07:54 11:55 BUN 30 H (7-17) mg/dL Creatinine 1.63 H (0.52-1.04) mg/dL Glucose 168 H (74-99) mg/dL POC Glucose (mg/dL) 172 H (70-110) mg/dL Assessment and Plan Assessment: Assessment and plan * Coronary artery disease with abnormal stress test status post PCI * History of atrial fibrillation, with transient bradycardia and junctional rhythm * Acute kidney injury * Hypertension * Diabetes mellitus type 2 * In regards to chest pain serial troponins negative 3 , patient had a positive Lexiscan, status post cardiac catheterization 01/01 with PCI LAD * Continue patient on aspirin, Eliquis, Plavix, cardiology following * In regards to acute kidney injury patient started on IV fluids continue patient on losartan monitor renal function and renal function worsen can consult nephrology * Regards to atrial fibrillation continue Elqiuis , metoprolol discontinued secondary to bradycardia>> transient episode of bradycardia noted postprocedure >> cardiology planning tentative pacemaker placement 01/04>> monitor cardiac telemetry * In regards to diabetes mellitus continue patient on correctional insulin and Lantus, monitor for hypoglycemia * CODE STATUS discussed with patient she is full code Time with Patient: Greater than 30
[2023-01-03 16:11] LABS: Glucose,Whole Blood 156 mg/dL (70-110)
[2023-01-03 20:11] LABS: Glucose,Whole Blood 235 mg/dL (70-110)
[2023-01-04] MEDS: HYDROcodone/APAP 7.5-325MG 1 EACH TAB PO PRN ×4 (00:46→20:55)
[2023-01-04] MEDS: ALPRAZolam 0.25 MG TAB PO PRN ×3 (00:47→20:55)
[2023-01-04] MEDS: LIDOCAINE 5% PATCH TOPICAL SCH (01:13)
[2023-01-04] MEDS: methocarbamoL 500 MG TAB PO PRN ×4 (01:31→21:26)
[2023-01-04] MEDS: INSULIN ASPART (NovoLOG) 100 UNIT/ML VIAL SQ SCH ×5 (03:21→20:48)
[2023-01-04] MEDS: INSULIN DETEMIR (LEVEMIR) 100 UNIT/ML SYR SQ SCH (03:21)
[2023-01-04] MEDS ORDERED: ceFAZolin 3 GM in SODIUM CHLORIDE 0.9% 100 ML IVPB PRN (05:00)
[2023-01-04] MEDS ORDERED: HYDROmorphone 0.5 MG/0.5 ML SYRINGE IVP ONE (05:33)
[2023-01-04] MEDS: SODIUM CHLORIDE 0.9% 1,000 ML IV SCH ×2 (06:18→06:19)
[2023-01-04 06:32] LABS: Glucose,Whole Blood 172 mg/dL (70-110)
[2023-01-04] MEDS: hydrALAZINE HCL 25 MG TAB PO SCH ×2 (06:35→20:47)
[2023-01-04] MEDS: MONTELUKAST 10 MG TAB PO SCH (06:35)
[2023-01-04] MEDS: OXYBUTYNIN 10 MG TAB.ER.24 PO SCH (06:35)
[2023-01-04] MEDS: LOSARTAN 25 MG TAB PO SCH (06:35)
[2023-01-04] MEDS: PANTOPRAZOLE 40 MG TABLET PO SCH (06:35)
[2023-01-04] MEDS: CLOPIDOGREL 75 MG TAB PO SCH (06:36)
[2023-01-04] MEDS: GABAPENTIN 300 MG CAP PO SCH ×2 (06:36→20:47)
[2023-01-04] MEDS: ATORVASTATIN 80 MG TAB PO SCH (06:36)
[2023-01-04] MEDS: amLODIPine 5 MG TAB PO SCH (06:36)
[2023-01-04] MEDS ORDERED: ceFAZolin 1 GM in SODIUM CHLORIDE 0.9% IRRIG BTL 250 ML IRRIGATION PRN (07:00)
[2023-01-04] MEDS: ALBUTEROL NEBULIZED 2.5 MG/3 ML INHALATION SCH ×4 (08:00→21:13)
[2023-01-04] MEDS: BUDESONIDE 0.5 MG/2 ML NEBU INHALATION SCH ×2 (08:00→21:13)
[2023-01-04 09:38] LABS: HCT 35.3 % (34.0-46.0); MCH 30.4 pg (25.0-35.0); MCHC 31.1 g/dL (31.0-37.0); MCV 97.7 fL (80.0-100.0); Mean Platelet Volume 8.8; Platelet Count 215 k/uL (150-450); RBC 3.61 m/uL (3.80-5.40); RDW 13.5 % (11.5-15.5); WBC 6.7 k/uL (3.8-10.6)
[2023-01-04 09:54] LABS: African American GFR (CKD) 66 (>60 ml/min/1.73 sqM); Anion Gap 7 mmol/L; Blood Urea Nitrogen 23 mg/dL (7-17); Calcium 8.8 mg/dL (8.4-10.2); Carbon Dioxide 25 mmol/L (22-30); Chloride 107 mmol/L (98-107); Glucose 154 mg/dL (74-99); Magnesium 2.1 mg/dL (1.6-2.3); Non-African American GFR(CKD) 58 (>60 ml/min/1.73 sqM); Potassium 4.6 mmol/L (3.5-5.1); Sodium 139 mmol/L (137-145)
[2023-01-04 11:32] LABS: Glucose,Whole Blood 136 mg/dL (70-110)
[2023-01-04] MEDS ORDERED: IV FLUID CONTINUATION 1,000 ML IV ONE (12:30)
[2023-01-04] MEDS ORDERED: IOPAMIDOL-370 100ML BTL INJ ONE (12:45)
[2023-01-04] MEDS ORDERED: LIDOCAINE 1% INJ 10MG/ML (20 ML MDV) ONE (13:08)
[2023-01-04] MEDS ORDERED: MIDAZOLAM 2 MG/2 ML VIAL IV ONE ×2 (13:13→13:25)
--- NOTE | 2023-01-04 13:14 | P.PN ---
Subjective Progress Note Date: 01/04/23 HISTORY OF PRESENT ILLNESS: The patient is a pleasant 82-year-old female patient with a past medical history significant for paroxysmal atrial fibrillation status post cardioversion recently and she has been maintaining normal sinus mechanism as well as diabetes and hypertension and dyslipidemia and preserved LV function on recent echo from 2022 presented to the hospital complaining of chest discomfort and neck discomfort. She describes discomfort in the middle of the chest as bowel/pain radiating to her neck. His heart to tell if the pain is coming from the neck all radiating to the neck. Beside that she has been experiencing shortness of breath with exertion. No dizziness or lightheadedness and no presyncope or syncope and no feeling of heart racing or fluttering. She underwent further cardiac workup including EKG showing sinus mechanism was nonspecific changes but she has been maintaining heart rate in the 50s and also she underwent cardiac enzymes came in to be unremarkable. The chest x-ray showed no acute abnormalities. Currently she is chest pain-free. No history of coronary artery disease or coronary revascularization she does have multiple risk factors including diabetes and hypertension and dyslipidemia and she is also overweight. No recent stress test was performed. The examination is remarkable for stable vital signs with heart rate in the 50s and diminished breathing sounds bilaterally and regular rate and rhythm. 01/01/2023 Patient examined this morning at the bedside. Patient continues to report shortness of breath and some mild chest pain. She reports that she feels tired this morning. Patient underwent Lexiscan stress test yesterday which was abnor mal revealing possible small area of reversibility at the apex of the heart. Patient has also been bradycardic with heart rate in the 50s and occasionally dipping down into the 30s. 01/02 Patient has been transferred to the cardiac stepdown unit. Patient received 1 dose of metoprolol yesterday at a reduced strength and this has been discontinued. She has not received any beta ale today. She denies having any chest pain, palpitations, lightheadedness or dizziness. She denies any shortness of breath. She is complaining of muscle spasms in her back. Heart rate has been running 30s and 40s. Telemetry is showing junctional/sinus bradycardia. 01/03 Patient is seen today in follow up. Patient ambulated yesterday afternoon and HR went into low 50s but patient had significant shortness of breath and was not able to ambulate back to her room. She states that normally she only walks 17 s teps from her chair to her kitchen and is short of breath at home. She feels that her heart rate has been low for some time. Patient has now been off beta ale for 48 hours. 01/04 Patient seen and examined. She reports having muscle spasms in her back when that occurs gets occasional chest pains. She feels tired. Creat 0.94. PHYSICAL EXAM: VITAL SIGNS: Reviewed. GENERAL: Well-developed in no acute distress. NECK: Supple. No JVD or thyromegaly LUNGS: Respirations even and unlabored. Lungs essentially clear to auscultation bilaterally. HEART: Regular rate and rhythm. S1 and S2 heard. EXTREMITIES: Normal range of motion. No clubbing or cyanosis. Peripheral pulses intact. No lower extremity edema ASSESSMENT: CAD s/p PCI to LAD 01/01/23 Chest pain Sinus bradycardia Paroxysmal atrial fibrillation status post cardioversion Hypertension Hyperlipidemia Diabetes PLAN: Continue with plavix given recent PCI. Whitney on hold for pacemaker placement. Plan for pacemaker placement today with Dr. Marks. At time of discharge, patient to follow up with Dr. Cuevas in one week Nurse practitioner note has been reviewed by physician. Signing provider agrees with the documented findings, assessment, and plan of care. Objective - Vital Signs Vital signs: Vital Signs Temp 97.5 F L 01/04/23 11:05 Pulse 66 01/04/23 11:05 Resp 18 01/04/23 11:05 BP 119/70 01/04/23 11:05 Pulse Ox 94 L 01/04/23 11:05 FiO2 21 01/03/23 07:37 Intake & Output 01/03/23 01/04/23 01/04/23 18:59 06:59 18:59 Intake Total 1140 10 Balance 1140 10 Intake: IV 10 Invasive Line 2 10 Oral 1140 Other: Voiding Method Toilet Toilet Toilet # Voids 1 2 - Labs CBC & Chem 7: 01/04/23 08:09 01/04/23 08:09 Labs: Abnormal Lab Results - Last 24 Hours (Table) 01/03/23 01/03/23 01/03/23 Range/Units 11:55 16:06 20:09 RBC (3.80-5.40) m/uL Hgb (11.4-16.0) gm/dL BUN (7-17) mg/dL Glucose (74-99) mg/dL POC Glucose (mg/dL) 172 H 156 H 235 H (70-110) mg/dL 01/04/23 01/04/23 01/04/23 Range/Units 06:31 08:09 08:09 RBC 3.61 L (3.80-5.40) m/uL Hgb 11.0 L (11.4-16.0) gm/dL BUN 23 H (7-17) mg/dL Glucose 154 H (74-99) mg/dL POC Glucose (mg/dL) 172 H (70-110) mg/dL
[2023-01-04] MEDS ORDERED: LIDOCAINE 1% INJ 10MG/ML (20 ML MDV) SQ ONE (13:18)
[2023-01-04] MEDS ORDERED: HYDROmorphone (PF) 1 MG/ML ONE (13:34)
[2023-01-04] MEDS ORDERED: KETAMINE 10 MG/ML 20 ML VIAL ONE (13:34)
[2023-01-04] MEDS ORDERED: PROPOFOL 10 MG/ML 20 ML VIAL IV ONE (13:34)
[2023-01-04 16:30] LABS: Glucose,Whole Blood 137 mg/dL (70-110)
[2023-01-04] MEDS ORDERED: ACETAMINOPHEN TAB 325 MG TAB PO PRN (17:46)
--- NOTE | 2023-01-04 17:46 | P.PCN ---
Description of Procedure: CARDIOLOGY PROCEDURE NOTE Balance Wheel Motion Inspector: Dr. Rome Marks Procedure performed: Insertion dual chamber permanent pacemaker Site: Left subclavian Indications: Sick Sinus Syndrome Complications: None Blood Loss: Minimal Description of Procedure: After the risks, benefits, and alternatives of the above-mentioned procedure was explained in detail with the patient, informed consent was obtained. The patient was taken to the cardiac catheterization suite where the left subclavian area was sterily prepped and draped in the usual fashion. Initially IV versed and Fenatnyl were used however patient could not tolerate lying on the table and anesthesia needed to sedate patient. One percent lidocaine was used to anesthetize the left subclavian area. Twenty milliliters of Isoview 370 contrast was injected into the left antecubital vein to allow for direct visualization of the left subclavian vein under fluoroscopy. A 1.5 inch incision was made utilizing a #15 blade in the left subclavian site. Hemostasis was made complete. Electrocautery along with digital blunt dissection was utilized to dissect to the level of the pectoralis muscle fascia and create a pocket large enough to accommodate the generator. A thin walled micro puncuture needle was used to cannulate the left subclavian vein. A guide-wire was inserted through the needle into the vascular lumen under fluoroscopic guidance. The needle was removed. Another thin walled micr puncture needle was used to again cannulate the left subclavian vein. A guide-wire was inserted through the needle into the vascular lumen under fluoroscopic guidance. The needle was removed and both guide-wires were attached to the field. A venous sheath and dilator were advanced over the guidewire into the vascular lumen under fluoroscopic guidance. The dilator and guidewire were then removed. A right ventricular bipolar lead was inserted into the sheath and advanced under fluoroscopic guidance into the right ventricle under fluoroscopic guidance. Initially attempted an apical position however inappropriate sensing and pacing thersholds. Therefore the RV lead was placed in a septal position. Adequate sensing and pacing thresholds were achieved and the lead was screwed into place. The sheath was then torn away. The lead collar was advanced and anchored into place utilizing #0 silk suture. Next, another venous sheath and dilator were advanced under fluoroscopic guidance into the vascular lumen over the guidewire. After removal of the dilator and guidewire, a right atrial bipolar lead was inserted into this sheath and advanced under fluoroscopic guidance into the right atrium. The lead was positioned into the right atrial appendage. Adequate sensing and pacing thresholds were then achieved with patient being in Aflutter at the time and the lead was screwed into place. The sheath was then torn away. The lead collar was advanced and anchored into place utilizing #0 silk suture. The leads were then inserted into the appropriate position into the generator. They were then secured with the setscrew provided. The leads and generator were inserted into the pocket with the leads posterior. The subcutaneous tissue was approximated utilizing #2.0 and 3.0 vicryl in an interrupted stitch fashion. The dermal layer was approximated utilizing #4.0 vicryl. The area was cleansed with sterile saline and dried. A sterile 4x4 dressing was applied and the patient was transferred to the post catheterization holding area in stable and satisfactory condition. The patient tolerated the procedure well. Generator Data Instrument Assembler: [email or web address] Brand: [id number] [place] XT DR MRI Model #: [id number] Serial#: [id number] Right Atrial Bipolar Lead Data: Type: Active fixation lead Instrument Assembler: [employer] Model#: 5076-45 Serial Number: [id number] Right Ventricular Bipolar Lead Data: Type: Active fixation lead Instrument Assembler: [employer] Model #: 5076-52 Serial #: [id number] Stimulation Thresholds: Right atrial bipolar lead pacing and sensing thresholds Voltage: 1.0 V Impedance: 475 ohms P-wave sensin.5 mV Right Ventricular bipolar lead pacing and sensing thresholds Pulse Width: 0.4ms Voltage: 1.0 volts Impedance: 665 ohms R-wave sensin.5 mV Parameter Setting: Pacing mode is AAI<=>DDD Lower rate 60 bpm Upper rate 130 bpm Impressions: 1. Successful implantation of a dual chamber permanent pacemaker in the left pectoral site. Plan: 1. Routine post procedure care will be instituted as well as outpatient follow- up surveillance.
[2023-01-04] MEDS ORDERED: ceFAZolin 3 GM in SODIUM CHLORIDE 0.9% 100 ML IVPB SCH (18:00)
[2023-01-04] MEDS ORDERED: BENZOCAINE/MENTHOL LOZENG 1 EACH LOZENGE MUCOUS MEM PRN (18:09)
--- NOTE | 2023-01-04 18:31 | XR ---
EXAMINATION TYPE: XR chest 1V portable DATE OF EXAM: 01/04/2023 6:11 PM COMPARISON: Chest radiographs from 01/01/2023 TECHNIQUE: XR chest 1V portable Frontal view of the chest. CLINICAL INDICATION:Female, 82 years old with history of Lead placement check; FINDINGS: Lungs/Pleura: There is no evidence of pleural effusion, focal consolidation, or pneumothorax. Pulmonary vascularity: Unremarkable. Heart/mediastinum: Cardiomediastinal silhouette is enlarged and stable. Two lead cardiac conduction d evice overlying the left hemithorax with lead tips projecting over the right ventricle and right atri um. Musculoskeletal: No acute osseous pathology. IMPRESSION: 1. No acute cardiopulmonary disease/process. 2. Two lead cardiac conduction device overlying the left hemithorax with lead tips projecting over t he right ventricle and right atrium.
[2023-01-04 20:32] LABS: Glucose,Whole Blood 181 mg/dL (70-110)
[2023-01-04] MEDS ORDERED: HYDROmorphone 0.5 MG/0.5 ML SYRINGE IVP STA (21:32)
[2023-01-05] MEDS: SODIUM CHLORIDE 0.9% 1,000 ML IV SCH ×2 (02:33→03:46)
[2023-01-05 05:47] VITALS: RESP 18
[2023-01-05] MEDS: HYDROcodone/APAP 7.5-325MG 1 EACH TAB PO PRN ×2 (05:49→11:53)
[2023-01-05 06:01] LABS: Glucose,Whole Blood 138 mg/dL (70-110)
[2023-01-05] MEDS: INSULIN ASPART (NovoLOG) 100 UNIT/ML VIAL SQ SCH ×2 (06:01→12:06)
[2023-01-05] MEDS: INSULIN DETEMIR (LEVEMIR) 100 UNIT/ML SYR SQ SCH (06:13)
[2023-01-05] MEDS: ALBUTEROL NEBULIZED 2.5 MG/3 ML INHALATION SCH ×2 (07:45→11:16)
[2023-01-05] MEDS: BUDESONIDE 0.5 MG/2 ML NEBU INHALATION SCH (07:45)
[2023-01-05] MEDS: amLODIPine 5 MG TAB PO SCH (08:37)
[2023-01-05] MEDS: hydrALAZINE HCL 25 MG TAB PO SCH (08:37)
[2023-01-05] MEDS: MONTELUKAST 10 MG TAB PO SCH (08:38)
[2023-01-05] MEDS: LOSARTAN 25 MG TAB PO SCH (08:38)
[2023-01-05] MEDS: LIDOCAINE 5% PATCH TOPICAL SCH (08:38)
[2023-01-05] MEDS: CLOPIDOGREL 75 MG TAB PO SCH (08:38)
[2023-01-05] MEDS: ATORVASTATIN 80 MG TAB PO SCH (08:38)
[2023-01-05] MEDS: GABAPENTIN 300 MG CAP PO SCH (08:38)
[2023-01-05] MEDS: PANTOPRAZOLE 40 MG TABLET PO SCH (08:38)
[2023-01-05] MEDS: OXYBUTYNIN 10 MG TAB.ER.24 PO SCH (08:42)
[2023-01-05 11:20] VITALS: BP 148/56; TEMP 98.2
[2023-01-05 11:29] VITALS: PULSE 75
[2023-01-05 11:46] LABS: Glucose,Whole Blood 219 mg/dL (70-110)
[2023-01-05] MEDS: methocarbamoL 500 MG TAB PO PRN (11:53)
--- NOTE | 2023-01-05 12:01 | P.PN ---
Subjective Progress Note Date: 01/04/23 82-year-old lady with past medical history significant for atrial fibrillation, hypertension, mild coronary artery disease based on cardiac catheterization in 2018, diabetes Mellitus 2 presented to the emergency department with complaints of chest pain and shortness of breath. 12/31> patient underwent stress test which showed reversible defect will wait for cardiology evaluation , Patient does complain of neck and back pain, Lexiscan Scan Positive On 01/01> patient seen by cardiology and underwent cardiac catheterization PCI of LAD done, postprocedure patient was bradycardic will be moved to stepdown unit, patient underwent rapid response called secondary to bradycardia. Discussed with on-call cardiology recommended to monitor did not give atropine no dopamine drip without ale discontinued On 01/02>> heart rate has improved slightly in 40s, patient asymptomatic does complain of generalized pain including spasms which is chronic for her started on lidocaine patch On 01/03>> patient seen and evaluated bedside alert and oriented 3, states shortness of breath has improved, seen by cardiology planning pacemaker placement 01/04, noted to have elevated creatinine, started on IV fluid normal saline. Heart rate has improved as well 01/04/2023 Patient is seen and evaluated in room at bedside; no specific complaints reported except for some muscle spasm; denies any chest pain or trouble breathing Vital signs are reviewed and are stable Lab review shows WBC of 6.7, hemoglobin 11.0 and platelet count of 15, sodium 139, has 4.6, BUN/creatinine of 23/0.9, creatinine is improved from 1.6 yesterday Cardiology on board and recommending to continue with plavix given recent PCI. Whitney on hold for pacemaker placement. Plan for pacemaker placement today Objective - Vital Signs Vital signs: Vital Signs Temp 97.5 F L 01/04/23 11:05 Pulse 66 01/04/23 11:05 Resp 18 01/04/23 11:05 BP 119/70 01/04/23 11:05 Pulse Ox 94 L 01/04/23 11:05 FiO2 21 01/03/23 07:37 Intake & Output 01/03/23 01/04/23 01/04/23 18:59 06:59 18:59 Intake Total 1140 10 Balance 1140 10 Intake: IV 10 Invasive Line 2 10 Oral 1140 Other: Voiding Method Toilet Toilet Toilet # Voids 1 2 - Exam PHYSICAL EXAMINATION: GENERAL: The patient is alert and oriented x3, not in any acute distress. Well developed, well nourished. HEENT: Pupils are round and equally reacting to light. EOMI. No scleral icterus. No conjunctival pallor. Normocephalic, atraumatic. No pharyngeal erythema. No thyromegaly. CARDIOVASCULAR: S1 and S2 present. No murmurs, rubs, or gallops. PULMONARY: Chest is clear to auscultation, no wheezing or crackles. ABDOMEN: Soft, nontender, nondistended, normoactive bowel sounds. No palpable organomegaly. MUSCULOSKELETAL: No joint swelling or deformity. EXTREMITIES: No cyanosis, clubbing, or pedal edema. NEUROLOGICAL: Gross neurological examination did not reveal any focal deficits. SKIN: No rashes. - Labs CBC & Chem 7: 01/04/23 08:09 01/04/23 08:09 Labs: Abnormal Lab Results - Last 24 Hours (Table) 01/03/23 01/03/23 01/04/23 Range/Units 16:06 20:09 06:31 RBC (3.80-5.40) m/uL Hgb (11.4-16.0) gm/dL BUN (7-17) mg/dL Glucose (74-99) mg/dL POC Glucose (mg/dL) 156 H 235 H 172 H (70-110) mg/dL 01/04/23 01/04/23 01/04/23 Range/Units 08:09 08:09 11:30 RBC 3.61 L (3.80-5.40) m/uL Hgb 11.0 L (11.4-16.0) gm/dL BUN 23 H (7-17) mg/dL Glucose 154 H (74-99) mg/dL POC Glucose (mg/dL) 136 H (70-110) mg/dL Assessment and Plan Assessment: Coronary artery disease with abnormal stress test status post PCI History of atrial fibrillation, with transient bradycardia and junctional rhythm Acute kidney injury Hypertension Diabetes mellitus type 2 In regards to chest pain serial troponins negative 3 , patient had a positive Lexiscan, status post cardiac catheterization 01/01 with PCI LAD Continue patient on aspirin, Eliquis, Plavix, cardiology following In regards to acute kidney injury patient started on IV fluids continue patient on losartan monitor renal function and renal function worsen can consult nephrology Regards to atrial fibrillation continue Elqiuis , metoprolol discontinued secondary to bradycardia>> transient episode of bradycardia noted postprocedure >> cardiology planning tentative pacemaker placement 01/04>> monitor cardiac telemetry In regards to diabetes mellitus continue patient on correctional insulin and Lantus, monitor for hypoglycemia CODE STATUS discussed with patient she is full code
--- NOTE | 2023-01-05 12:25 | P.PN ---
Subjective Progress Note Date: 01/05/23 HISTORY OF PRESENT ILLNESS: The patient is a pleasant 82-year-old female patient with a past medical history significant for paroxysmal atrial fibrillation status post cardioversion recently and she has been maintaining normal sinus mechanism as well as diabetes and hypertension and dyslipidemia and preserved LV function on recent echo from 2022 presented to the hospital complaining of chest discomfort and neck discomfort. She describes discomfort in the middle of the chest as bowel/pain radiating to her neck. His heart to tell if the pain is coming from the neck all radiating to the neck. Beside that she has been experiencing shortness of breath with exertion. No dizziness or lightheadedness and no presyncope or syncope and no feeling of heart racing or fluttering. She underwent further cardiac workup including EKG showing sinus mechanism was nonspecific changes but she has been maintaining heart rate in the 50s and also she underwent cardiac enzymes came in to be unremarkable. The chest x-ray showed no acute abnormalities. Currently she is chest pain-free. No history of coronary artery disease or coronary revascularization she does have multiple risk factors including diabetes and hypertension and dyslipidemia and she is also overweight. No recent stress test was performed. The examination is remarkable for stable vital signs with heart rate in the 50s and diminished breathing sounds bilaterally and regular rate and rhythm. 01/01/2023 Patient examined this morning at the bedside. Patient continues to report shortness of breath and some mild chest pain. She reports that she feels tired this morning. Patient underwent Lexiscan stress test yesterday which was abnor mal revealing possible small area of reversibility at the apex of the heart. Patient has also been bradycardic with heart rate in the 50s and occasionally dipping down into the 30s. 01/02 Patient has been transferred to the cardiac stepdown unit. Patient received 1 dose of metoprolol yesterday at a reduced strength and this has been discontinued. She has not received any beta ale today. She denies having any chest pain, palpitations, lightheadedness or dizziness. She denies any shortness of breath. She is complaining of muscle spasms in her back. Heart rate has been running 30s and 40s. Telemetry is showing junctional/sinus bradycardia. 01/03 Patient is seen today in follow up. Patient ambulated yesterday afternoon and HR went into low 50s but patient had significant shortness of breath and was not able to ambulate back to her room. She states that normally she only walks 17 s teps from her chair to her kitchen and is short of breath at home. She feels that her heart rate has been low for some time. Patient has now been off beta ale for 48 hours. 01/04 Patient seen and examined. She reports having muscle spasms in her back when that occurs gets occasional chest pains. She feels tired. Creat 0.94. 01/05 She is s/p pacemaker implatation 01/04. Site is sore but denies any chest pain or pressure. PHYSICAL EXAM: VITAL SIGNS: Reviewed. GENERAL: Well-developed in no acute distress. NECK: Supple. No JVD or thyromegaly LUNGS: Respirations even and unlabored. Lungs essentially clear to auscultation bilaterally. HEART: Regular rate and rhythm. S1 and S2 heard. Left chest dressing is clean dry intact, mild bruising and tenderness. Area of redness below dressing on left chest. EXTREMITIES: Normal range of motion. No clubbing or cyanosis. Peripheral pulses intact. No lower extremity edema ASSESSMENT: CAD s/p PCI to LAD 01/01/23 Chest pain Sinus bradycardia Paroxysmal atrial fibrillation status post cardioversion Hypertension Hyperlipidemia Diabetes Sick sinus syndrome s/p pacemaker implatation 01/04/23, [employer] dual chamber PLAN: Pacer interrogation reviewed. Continue with plavix given recent PCI. Eliquis to be resumed tomorrow 01/06/23. Activity restrictions reviewed. Monitor area of redness below dressing for signs of infection. OK to discharge home from cardiology standpoint. Patient is to follow up with Dr. Cuevas in one week. Nurse practitioner note has been reviewed by physician. Signing provider agrees with the documented findings, assessment, and plan of care. Objective - Vital Signs Vital signs: Vital Signs Temp 98.5 F 01/05/23 08:42 Pulse 74 01/05/23 08:42 Resp 18 01/05/23 08:42 BP 136/75 01/05/23 08:42 Pulse Ox 93 L 01/05/23 08:42 FiO2 21 01/03/23 07:37 Intake & Output 01/04/23 01/05/23 01/05/23 18:59 06:59 18:59 Intake Total 1740 420 Output Total 200 Balance 1740 -200 420 Intake: IV 570 Invasive Line 1 10 Invasive Line 2 10 Intake, IV Titration 1050 Amount Sodium Chloride 0.9% 1, 900 000 ml @ 50 mls/hr IV . Q20H YOSSI Rx#:[id number] ceFAZolin 2 gm In Sodium 50 Chloride 0.9% 50 ml @ 100 mls/hr IVPB ONCE PRN Rx# :[id number] ceFAZolin 3 gm In Sodium 100 Chloride 0.9% 100 ml @ 200 mls/hr IVPB ONCE PRN Rx#:[id number] Oral 120 420 Output: Urine 200 Other: Voiding Method Toilet Toilet Toilet # Voids 1 1 - Labs CBC & Chem 7: 01/04/23 08:09 01/04/23 08:09 Labs: Abnormal Lab Results - Last 24 Hours (Table) 01/04/23 01/04/23 01/04/23 Range/Units 11:30 16:27 20:31 POC Glucose (mg/dL) 136 H 137 H 181 H (70-110) mg/dL 01/05/23 Range/Units 05:59 POC Glucose (mg/dL) 138 H (70-110) mg/dL
--- NOTE | 2023-01-12 20:22 | P.DS ---
Providers Date of admission: 12/30/22 12:32 Expected date of discharge: 01/05/23 Attending physician: Kimi Yadav MD Consults: 12/30/22 12:31 Consult Physician Routine Consulting Provider: Sumeet Arambula Consult Reason/Comments: Chest Pain Do you want consulting provider notified?: Yes 01/01/23 11:56 Consult Physician Routine Consulting Provider: Sumeet Arambula Consult Reason/Comments: Post Interventional patient Do you want consulting provider notified?: Already Contacted Primary care physician: Rox Parmar [facility] Course: 82-year-old lady with past medical history significant for atrial fibrillation, hypertension, mild coronary artery disease based on cardiac catheterization in 2018, diabetes Mellitus 2 presented to the emergency department with complaints of chest pain and shortness of breath. 12/31> patient underwent stress test which showed reversible defect will wait for cardiology evaluation , Patient does complain of neck and back pain, Lexiscan Scan Positive On 01/01> patient seen by cardiology and underwent cardiac catheterization PCI of LAD done, postprocedure patient was bradycardic will be moved to stepdown unit, patient underwent rapid response called secondary to bradycardia. Discussed with on-call cardiology recommended to monitor did not give atropine no dopamine drip without ale discontinued On 01/02>> heart rate has improved slightly in 40s, patient asymptomatic does complain of generalized pain including spasms which is chronic for her started on lidocaine patch On 01/03>> patient seen and evaluated bedside alert and oriented 3, states shortness of breath has improved, seen by cardiology planning pacemaker placement 01/04, noted to have elevated creatinine, started on IV fluid normal saline. Heart rate has improved as well 01/04/2023 Patient is seen and evaluated in room at bedside; no specific complaints reported except for some muscle spasm; denies any chest pain or trouble breathing Vital signs are reviewed and are stable Lab review shows WBC of 6.7, hemoglobin 11.0 and platelet count of 15, sodium 139, has 4.6, BUN/creatinine of 23/0.9, creatinine is improved from 1.6 yesterday Cardiology on board and recommending to continue with plavix given recent PCI. Eliquis on hold for pacemaker placement. Plan for pacemaker placement today Coronary artery disease with abnormal stress test status post PCI History of atrial fibrillation, with transient bradycardia and junctional rhythm Acute kidney injury Hypertension Diabetes mellitus type 2 In regards to chest pain serial troponins negative 3 , patient had a positive Lexiscan, status post cardiac catheterization 01/01 with PCI LAD Continue patient on aspirin, Eliquis, Plavix, cardiology following In regards to acute kidney injury patient started on IV fluids continue patient on losartan monitor renal function and renal function worsen can consult nephrology Regards to atrial fibrillation continue Elqiuis , metoprolol discontinued secondary to bradycardia>> transient episode of bradycardia noted postprocedure >> cardiology planning tentative pacemaker placement 01/04>> monitor cardiac telemetry In regards to diabetes mellitus continue patient on correctional insulin and Lantus, monitor for hypoglycemia CODE STATUS discussed with patient she is full code 01/05/2023 Patient cleared for dc by Cardiology Patient Condition at Discharge: Fair Plan - Discharge Summary New Discharge Prescriptions: New Clopidogrel [Plavix] 75 mg PO DAILY 30 Days #30 tab Losartan [Cozaar] 25 mg PO DAILY 30 Days #30 tab Continue glipiZIDE XL [Glucotrol XL] 5 mg PO DAILY amLODIPine [Norvasc] 5 mg PO DAILY sitaGLIPtin [Januvia] 100 mg PO DAILY Montelukast [Singulair] 10 mg PO DAILY Atorvastatin [Lipitor] 40 mg PO DAILY Metoprolol Succinate [Toprol XL] 50 mg PO DAILY Apixaban [Eliquis] 5 mg PO BID Tolterodine Tartrate [Tolterodine Tartrate ER] 4 mg PO DAILY Meloxicam [Mobic] 15 mg PO DAILY Albuterol Nebulized [Ventolin Nebulized] 2.5 mg INHALATION RT-QID Budesonide [Pulmicort] 0.5 mg INHALATION RT-BID Omeprazole 40 mg PO DAILY Gabapentin 300 mg PO BID HYDROcodone/APAP 7.5-325MG [[place] 7.5-325] 1 tab PO BID PRN PRN Reason: Pain Insulin Glargine,Hum.rec.anlog [Lantus Solostar Pen] 10 units SQ DAILY hydrALAZINE HCL [Apresoline] 25 mg PO BID #60 tab Furosemide [Lasix] 40 mg PO DAILY #30 tab methocarbamoL [Robaxin] 500 mg PO Q6H PRN PRN Reason: Pain Discharge Medication List glipiZIDE XL [Glucotrol XL] 5 mg PO DAILY 12/04/17 [History] amLODIPine [Norvasc] 5 mg PO DAILY 04/09/18 [History] sitaGLIPtin [Januvia] 100 mg PO DAILY 04/09/18 [History] Montelukast [Singulair] 10 mg PO DAILY 03/28/19 [History] Atorvastatin [Lipitor] 40 mg PO DAILY 04/09/19 [History] Metoprolol Succinate [Toprol XL] 50 mg PO DAILY 09/16/20 [History] Apixaban [Eliquis] 5 mg PO BID 09/04/22 [History] Gabapentin 300 mg PO BID 09/04/22 [History] HYDROcodone/APAP 7.5-325MG [[place] 7.5-325] 1 tab PO BID PRN 09/04/22 [History] Insulin Glargine,Hum.rec.anlog [Lantus Solostar Pen] 10 units SQ DAILY 09/04/22 [History] Furosemide [Lasix] 40 mg PO DAILY #30 tab 09/06/22 [Rx] hydrALAZINE HCL [Apresoline] 25 mg PO BID #60 tab 09/06/22 [Rx] Meloxicam [Mobic] 15 mg PO DAILY 10/16/22 [History] Tolterodine Tartrate [Tolterodine Tartrate ER] 4 mg PO DAILY 10/16/22 [History] Albuterol Nebulized [Ventolin Nebulized] 2.5 mg INHALATION RT-QID 12/30/22 [History] Budesonide [Pulmicort] 0.5 mg INHALATION RT-BID 12/30/22 [History] Omeprazole 40 mg PO DAILY 12/30/22 [History] methocarbamoL [Robaxin] 500 mg PO Q6H PRN 12/30/22 [History] Clopidogrel [Plavix] 75 mg PO DAILY 30 Days #30 tab 01/05/23 [Rx] Losartan [Cozaar] 25 mg PO DAILY 30 Days #30 tab 01/05/23 [Rx] Follow up Appointment(s)/Referral(s): Mitch Cuevas MD [STAFF PHYSICIAN] - 1 Week (Please call office to make a follow up appointment when offices are open FRIDAY) Rox Parmar DO [Primary Care Provider] - 1-2 days (Please call office to make a follow up appointment when offices are open FRIDAY ) Patient Instructions/Handouts: After Radial Heart Catheterization (GEN), Pacemaker (DC) Activity/Diet/Wound Care/Special Instructions: PACEMAKER Keep dressing dry and intact for 5 days. You may cover the area with saran or cling wrap, prior to a shower. The dressing will be removed in the [facility] at [facility]. Absorbable sutures were used to close the wound. Avoid raising the left arm above the shoulder level. (4-week restriction). Avoid arm movements, like backscratching, rubbing your head, or pulling on a cord with your left arm. (4-week restriction). Gentle range of motion movements of the left shoulder should be performed to avoid a frozen shoulder. (Pendulum exercises). The opposite arm may be used freely. Avoid driving for 7 days. Avoid activities such as golfing, swimming, week whacking, lifting more than 10 pounds of weight, bowling, gymnastics and weight training/lifting. (6-week restriction). Activities such as chopping wood, pull-ups, power lifting, welding, and being around an induction cooktop will always be a problem and can interfere with your pacemaker. Your arm sling is only a reminder to not lift your arm above your head. You do not need to keep the arm completely immobilized. You are free to move your arm and use it for normal activities. In case of any problems, please call [facility] [place] @ [phone]. Discharge Disposition: HOME SELF-CARE
== END 2023-01-05 13:59 | disposition home or self-care (01) | DRG 243 ==
LOC: EC 09:08 → 6NMEDSUR 12:32 → 3SCARD 01-01 17:45 → OBSVTOIN 01-04 06:33 → UNDODISOB 01-05 13:59
PROVIDERS: ADMIT Internal Medicine; ATTEND Internal Medicine
PROC: 027034Z Dilation of Coronary Artery, One Artery with Drug-eluting Intraluminal Device, Percutaneous Approach (ICD-10-PCS; 2023-01-01 08:40)
PROC: B2111ZZ Fluoroscopy of Multiple Coronary Arteries using Low Osmolar Contrast (ICD-10-PCS; 2023-01-01 08:40)
PROC: 4A023N7 Measurement of Cardiac Sampling and Pressure, Left Heart, Percutaneous Approach (ICD-10-PCS; 2023-01-01 08:40)
PROC: 05HC33Z Insertion of Infusion Device into Left Basilic Vein, Percutaneous Approach (ICD-10-PCS; 2023-01-03)
PROC: 0JH606Z Insertion of Pacemaker, Dual Chamber into Chest Subcutaneous Tissue and Fascia, Open Approach (ICD-10-PCS; principal; 2023-01-04 07:30)
PROC: 02HK3JZ Insertion of Pacemaker Lead into Right Ventricle, Percutaneous Approach (ICD-10-PCS; principal; 2023-01-04 07:30)
PROC: 02H63JZ Insertion of Pacemaker Lead into Right Atrium, Percutaneous Approach (ICD-10-PCS; principal; 2023-01-04 07:30)
DX: I49.5 Sick sinus syndrome (principal); I25.110 Atherosclerotic heart disease of native coronary artery with unstable angina pectoris; N17.9 Acute kidney failure, unspecified; E11.9 Type 2 diabetes mellitus without complications; I48.0 Paroxysmal atrial fibrillation; Z79.4 Long term (current) use of insulin; E78.00 Pure hypercholesterolemia, unspecified; I10 Essential (primary) hypertension; I25.2 Old myocardial infarction; M19.90 Unspecified osteoarthritis, unspecified site; G89.29 Other chronic pain; M54.2 Cervicalgia; M62.838 Other muscle spasm; S22.069S Unspecified fracture of T7-T8 vertebra, sequela; Z79.01 Long term (current) use of anticoagulants; Z79.84 Long term (current) use of oral hypoglycemic drugs; Z79.1 Long term (current) use of non-steroidal anti-inflammatories (NSAID); Z79.51 Long term (current) use of inhaled steroids; Z79.899 Other long term (current) drug therapy; Z95.5 Presence of coronary angioplasty implant and graft; Z60.2 Problems related to living alone; Z88.1 Allergy status to other antibiotic agents; Z88.5 Allergy status to narcotic agent; Z82.49 Family history of ischemic heart disease and other diseases of the circulatory system
CPT/HCPCS: 33208; 36410; 36415; 71045; 71046; 76937; 78452; 80048; 80053; 80061; 83735; 84484; 85025; 85027; 85610; 85730; 93005; 93017; 93458; 94640; 94760; 99285

== ENCOUNTER 2023-01-13 12:45 | Inpatient (IN) | payer MEDICARE ==
--- NOTE | 2023-01-13 13:06 | ED ---
General Adult HPI - General Chief complaint: Shortness of Breath Stated complaint: MARGE Time Seen by Provider: 01/13/23 12:54 Source: patient, family, RN notes reviewed Mode of arrival: wheelchair Limitations: no limitations - History of Present Illness Initial comments: Patient is a pleasant 82-year-old female presenting to the emergency Department with cough and dyspnea. Onset of symptoms was close to week ago. Patient was in the hospital last week. Patient did have stent placement as well as pacemaker placement. Patient states cough is nonproductive. Patient feels her legs maybe a little bit swollen. No calf pain. Patient states she has some mild chest discomfort. - Related Data Home Medications Medication Instructions Recorded Confirmed glipiZIDE XL [Glucotrol XL] 5 mg PO DAILY 12/04/17 12/30/22 amLODIPine [Norvasc] 5 mg PO DAILY 04/09/18 12/30/22 sitaGLIPtin [Januvia] 100 mg PO DAILY 04/09/18 12/30/22 Montelukast [Singulair] 10 mg PO DAILY 03/28/19 12/30/22 Atorvastatin [Lipitor] 40 mg PO DAILY 04/09/19 12/30/22 Metoprolol Succinate [Toprol XL] 50 mg PO DAILY 09/16/20 12/30/22 Apixaban [Eliquis] 5 mg PO BID 09/04/22 12/30/22 Gabapentin 300 mg PO BID 09/04/22 12/30/22 HYDROcodone/APAP 7.5-325MG [[place] 1 tab PO BID PRN 09/04/22 12/30/22 7.5-325] Insulin Glargine,Hum.rec.anlog 10 units SQ DAILY 09/04/22 12/30/22 [Lantus Solostar Pen] Meloxicam [Mobic] 15 mg PO DAILY 10/16/22 12/30/22 Tolterodine Tartrate [Tolterodine 4 mg PO DAILY 10/16/22 12/30/22 Tartrate ER] Albuterol Nebulized [Ventolin 2.5 mg INHALATION RT-QID 12/30/22 12/30/22 Nebulized] Budesonide [Pulmicort] 0.5 mg INHALATION RT-BID 12/30/22 12/30/22 Omeprazole 40 mg PO DAILY 12/30/22 12/30/22 methocarbamoL [Robaxin] 500 mg PO Q6H PRN 12/30/22 12/30/22 Previous Rx's Medication Instructions Recorded Furosemide [Lasix] 40 mg PO DAILY #30 tab 09/06/22 hydrALAZINE HCL [Apresoline] 25 mg PO BID #60 tab 09/06/22 Clopidogrel [Plavix] 75 mg PO DAILY 30 Days #30 tab 01/05/23 Losartan [Cozaar] 25 mg PO DAILY 30 Days #30 tab 01/05/23 Allergies Allergy/AdvReac Type Severity Reaction Status Date / Time tetracycline Allergy Unknown Verified 01/13/23 12:53 fentanyl AdvReac "IN Verified 01/13/23 12:53 ANOTHER PLANET, DIDNT KNOW WHERE SHE WAS" morphine AdvReac Nausea & Verified 01/13/23 12:53 Vomiting Review of Systems ROS Statement: Those systems with pertinent positive or pertinent negative responses have been documented in the HPI. ROS Other: All systems not noted in ROS Statement are negative. Constitutional: Denies: fever Eyes: Denies: eye pain ENT: Denies: ear pain Respiratory: Reports: as per HPI, cough, dyspnea Cardiovascular: Reports: as per HPI, chest pain Endocrine: Denies: fatigue Gastrointestinal: Denies: abdominal pain Genitourinary: Denies: dysuria Musculoskeletal: Denies: back pain Skin: Denies: rash Neurological: Denies: weakness Past Medical History Past Medical History: Atrial Fibrillation, Chest Pain / Angina, Diabetes Mellitus, Hyperlipidemia, Hypertension, Osteoarthritis (OA), Pneumonia Additional Past Medical History / Comment(s): Paroxysmal Afib, POST OP INFECTION AFTER BACK SURGERY, CHRONIC BACK PAIN FROM T8 FX, CHRONIC PERIPHERAL LEG EDEMA,R humerus fracture. History of Any Multi-Drug Resistant Organisms: None Reported Past Surgical History: Back Surgery, Cholecystectomy, Orthopedic Surgery Additional Past Surgical History / Comment(s): 2015 LUMBAR SURGERY, FX NOSE REPAIR, BILATERAL CATARACT SURGERY, R WRIST CARPAL TUNNEL SURGERY, kyphoplasty T8 ON 06/26/16 AND ONE BEFORE. Past Anesthesia/Blood Transfusion Reactions: No Reported Reaction Additional Past Anesthesia/Blood Transfusion Reaction / Comment(s): NEVER HAD A BLOOD TRANSFUSION. Past Psychological History: No Psychological Hx Reported Smoking Status: Never smoker Past Alcohol Use History: None Reported Past Drug Use History: None Reported - Past Family History Father Family Medical History: Myocardial Infarction (SC) Additional Family Medical History / Comment(s): FATHER AT AGE 52 OF AN SC Mother Additional Family Medical History / Comment(s): MOTHER AT AGE 89 OF CELEBREX PROBLEM. General Exam Limitations: no limitations General appearance: alert, in no apparent distress Eye exam: Present: normal appearance ENT exam: Present: normal oropharynx Neck exam: Present: normal inspection Respiratory exam: Present: normal lung sounds bilaterally Cardiovascular Exam: Present: regular rate, normal rhythm GI/Abdominal exam: Present: soft. Absent: tenderness Extremities exam: Present: pedal edema. Absent: calf tenderness Neurological exam: Present: alert Psychiatric exam: Present: normal affect, normal mood Skin exam: Present: normal color Course Vital Signs 01/13/23 01/13/23 12:50 13:24 Temperature 98.2 F Pulse Rate 63 64 Respiratory 20 18 Rate Blood Pressure 110/50 129/60 O2 Sat by Pulse 93 L 94 L Oximetry EKG Findings - EKG Results: EKG: interpreted by ERMD, sinus rhythm, normal axis, normal QRS, normal ST/T Medical Decision Making - Medical Decision Making Was pt. sent in by a medical professional or institution (, PA, CERTIFIED NUCLEAR MEDICINE TECHNOLOGIST, urgent care, hospital, or assisted...) When possible be specific @ -No Did you speak to anyone other than the patient for history (EMS, parent, family, police, friend...)? What history was obtained from this source @ -Patient has 2 family members present to help provide history including recent admission Did you review nursing and triage notes (agree or disagree)? Why? @ -I reviewed and agree with nursing and triage notes Were old charts reviewed (outside hosp., previous admission, EMS record, old EKG , old radiological studies, urgent care reports/EKG's, assisted records)? Report findings @ -Previous admission reviewed Differential Diagnosis (chest pain, altered mental status, abdominal pain women, abdominal pain men, vaginal bleeding, weakness, fever, dyspnea, syncope, headache, dizziness, GI bleed, back pain, seizure, CVA, palpatations, mental health)? @ -Differential Chest Pain: Stable Angina, Unstable Angina, STEMI, NSTEMI Aortic Dissection, Pneumothorax, Musculoskeletal, Esophageal Spasm GERD, Cholecystitis, Pancreatitis, Zoster, this is not meant to be an all-inclusive list. EKG interpreted by me (3pts min.). @ -As above X-rays interpreted by me (1pt min.). @ -X-ray shows no acute process CT interpreted by me (1pt min.). @ -None done U/S interpreted by me (1pt. min.). @ -None done What testing was considered but not performed or refused? (CT, X-rays, U/S, labs)? Why? @ -None What meds were considered but not given or refused? Why? @ -None Did you discuss the management of the patient with other professionals (professionals i.e. , PA, CERTIFIED NUCLEAR MEDICINE TECHNOLOGIST, lab, RT, psych nurse, social media community manager, char filter tank tender, teacher, air defense artillery officer, case work aide)? Give summary @ -Case was discussed with Dr. Oliver, who will admit covering recent admission. Was smoking cessation discussed for >3mins.? @ -No Was critical care preformed (if so, how long)? @ -No Were there social determinants of health that impacted care today? How? (Homelessness, low income, unemployed, alcoholism, drug addiction, transportation, low edu. Level, literacy, decrease access to med. care, [facility], rehab)? @ -No Was there de-escalation of care discussed even if they declined (Discuss DNR or withdrawal of care, Hospice)? DNR status @ -No What co-morbidities impacted this encounter? (DM, HTN, Smoking, COPD, CAD, C ancer, CVA, ARF, Chemo, Hep., AIDS, mental health diagnosis, sleep apnea, morbid obesity)? @ -None Was patient admitted / discharged? Hospital course, mention meds given and route, prescriptions, significant lab abnormalities, going to OR and other pertinent info. @ -Patient reevaluated. Patient and family updated. Patient is positive for COVID-19 infection. Patient has had symptoms for over a week and therefore does not qualify with antiviral therapy. Patient does have chest pain and will be admitted for observation and cardiac evaluation following recent cardiac intervention. Undiagnosed new problem with uncertain prognosis? @ -No Drug Therapy requiring intensive monitoring for toxicity (Heparin, Nitro, Insulin, Cardizem)? @ -No Were any procedures done? @ -No Diagnosis/symptom? @ -Chest pain, COVID-19 Acute, or Chronic, or Acute on Chronic? @ -Acute, acute Uncomplicated (without systemic symptoms) or Complicated (systemic symptoms)? @ -default Side effects of treatment? @ -No Exacerbation, Progression, or Severe Exacerbation? @ -No Poses a threat to life or bodily function? How? (Chest pain, [place], SC, pneumonia, PE, COPD, DKA, ARF, appy, cholecystitis, CVA, Diverticulitis, Homicidal, Suicidal, threat to staff... and all critical care pts) @ -No - Lab Data Result diagrams: 01/13/23 13:22 01/13/23 13:22 Lab Results 01/13/23 01/13/23 01/13/23 Range/Units 13:22 13:22 13:22 WBC 5.3 (3.8-10.6) k/uL RBC 3.68 L (3.80-5.40) m/uL Hgb 11.6 (11.4-16.0) gm/dL Hct 34.7 (34.0-46.0) % MCV 94.2 (80.0-100.0) fL MCH 31.4 (25.0-35.0) pg MCHC 33.3 (31.0-37.0) g/dL RDW 13.4 (11.5-15.5) % Plt Count 235 (150-450) k/uL MPV 7.8 Neutrophils % 81 % Lymphocytes % 8 % Monocytes % 6 % Eosinophils % 2 % Basophils % 0 % Neutrophils # 4.3 (1.3-7.7) k/uL Lymphocytes # 0.4 L (1.0-4.8) k/uL Monocytes # 0.3 (0-1.0) k/uL Eosinophils # 0.1 (0-0.7) k/uL Basophils # 0.0 (0-0.2) k/uL PT 10.7 (9.0-12.0) sec INR 1.0 (<1.2) APTT 28.6 (22.0-30.0) sec Sodium 139 (137-145) mmol/L Potassium 3.6 (3.5-5.1) mmol/L Chloride 100 (98-107) mmol/L Carbon Dioxide 29 (22-30) mmol/L Anion Gap 10 mmol/L BUN 13 (7-17) mg/dL Creatinine 0.90 (0.52-1.04) mg/dL Est GFR (CKD-EPI)AfAm 70 (>60 ml/min/1.73 sqM) Est GFR (CKD-EPI)NonAf 61 (>60 ml/min/1.73 sqM) Glucose 138 H (74-99) mg/dL Plasma Lactic Acid Gary (0.7-2.0) mmol/L Calcium 8.4 (8.4-10.2) mg/dL Magnesium 1.7 (1.6-2.3) mg/dL Total Bilirubin 0.7 (0.2-1.3) mg/dL AST 56 H (14-36) U/L ALT 51 H (4-34) U/L Alkaline Phosphatase 160 H (38-126) U/L Troponin I (0.000-0.034) ng/mL NT-Pro-B Natriuret Pep pg/mL Total Protein 6.6 (6.3-8.2) g/dL Albumin 3.8 (3.5-5.0) g/dL Influenza Type A (PCR) (Not Detectd) Influenza Type B (PCR) (Not Detectd) RSV (PCR) (Not Detectd) SARS-CoV-2 (PCR) (Not Detectd) 01/13/23 01/13/23 01/13/23 Range/Units 13:22 13:22 13:22 WBC (3.8-10.6) k/uL RBC (3.80-5.40) m/uL Hgb (11.4-16.0) gm/dL Hct (34.0-46.0) % MCV (80.0-100.0) fL MCH (25.0-35.0) pg MCHC (31.0-37.0) g/dL RDW (11.5-15.5) % Plt Count (150-450) k/uL MPV Neutrophils % % Lymphocytes % % Monocytes % % Eosinophils % % Basophils % % Neutrophils # (1.3-7.7) k/uL Lymphocytes # (1.0-4.8) k/uL Monocytes # (0-1.0) k/uL Eosinophils # (0-0.7) k/uL Basophils # (0-0.2) k/uL PT (9.0-12.0) sec INR (<1.2) APTT (22.0-30.0) sec Sodium (137-145) mmol/L Potassium (3.5-5.1) mmol/L Chloride (98-107) mmol/L Carbon Dioxide (22-30) mmol/L Anion Gap mmol/L BUN (7-17) mg/dL Creatinine (0.52-1.04) mg/dL Est GFR (CKD-EPI)AfAm (>60 ml/min/1.73 sqM) Est GFR (CKD-EPI)NonAf (>60 ml/min/1.73 sqM) Glucose (74-99) mg/dL Plasma Lactic Acid Gary 1.0 (0.7-2.0) mmol/L Calcium (8.4-10.2) mg/dL Magnesium (1.6-2.3) mg/dL Total Bilirubin (0.2-1.3) mg/dL AST (14-36) U/L ALT (4-34) U/L Alkaline Phosphatase (38-126) U/L Troponin I 0.032 (0.000-0.034) ng/mL NT-Pro-B Natriuret Pep 587 pg/mL Total Protein (6.3-8.2) g/dL Albumin (3.5-5.0) g/dL Influenza Type A (PCR) (Not Detectd) Influenza Type B (PCR) (Not Detectd) RSV (PCR) (Not Detectd) SARS-CoV-2 (PCR) (Not Detectd) 01/13/23 Range/Units 13:22 WBC (3.8-10.6) k/uL RBC (3.80-5.40) m/uL Hgb (11.4-16.0) gm/dL Hct (34.0-46.0) % MCV (80.0-100.0) fL MCH (25.0-35.0) pg MCHC (31.0-37.0) g/dL RDW (11.5-15.5) % Plt Count (150-450) k/uL MPV Neutrophils % % Lymphocytes % % Monocytes % % Eosinophils % % Basophils % % Neutrophils # (1.3-7.7) k/uL Lymphocytes # (1.0-4.8) k/uL Monocytes # (0-1.0) k/uL Eosinophils # (0-0.7) k/uL Basophils # (0-0.2) k/uL PT (9.0-12.0) sec INR (<1.2) APTT (22.0-30.0) sec Sodium (137-145) mmol/L Potassium (3.5-5.1) mmol/L Chloride (98-107) mmol/L Carbon Dioxide (22-30) mmol/L Anion Gap mmol/L BUN (7-17) mg/dL Creatinine (0.52-1.04) mg/dL Est GFR (CKD-EPI)AfAm (>60 ml/min/1.73 sqM) Est GFR (CKD-EPI)NonAf (>60 ml/min/1.73 sqM) Glucose (74-99) mg/dL Plasma Lactic Acid Gary (0.7-2.0) mmol/L Calcium (8.4-10.2) mg/dL Magnesium (1.6-2.3) mg/dL Total Bilirubin (0.2-1.3) mg/dL AST (14-36) U/L ALT (4-34) U/L Alkaline Phosphatase (38-126) U/L Troponin I (0.000-0.034) ng/mL NT-Pro-B Natriuret Pep pg/mL Total Protein (6.3-8.2) g/dL Albumin (3.5-5.0) g/dL Influenza Type A (PCR) Not Detected (Not Detectd) Influenza Type B (PCR) Not Detected (Not Detectd) RSV (PCR) Not Detected (Not Detectd) SARS-CoV-2 (PCR) Detected A (Not Detectd) Disposition Clinical Impression: COVID-19, Chest pain Disposition: ADMITTED IP TO THIS HOSP Is patient prescribed a controlled substance at d/c from ED?: No Referrals: None,Stated [REFERRING] - 1-2 days Time of Disposition: 15:28
[2023-01-13 13:49] LABS: Basophils % (A) 0 %; Eosinophils # (A) 0.1 k/uL (0-0.7); Eosinophils % (A) 2 %; HCT 34.7 % (34.0-46.0); HGB 11.6 gm/dL (11.4-16.0); Lymphocytes # (A) 0.4 k/uL (1.0-4.8); Lymphocytes % (A) 8 %; MCH 31.4 pg (25.0-35.0); MCHC 33.3 g/dL (31.0-37.0); MCV 94.2 fL (80.0-100.0); Mean Platelet Volume 7.8; Monocytes # (A) 0.3 k/uL (0-1.0); Monocytes % (A) 6 %; Neutrophils # (A) 4.3 k/uL (1.3-7.7); Neutrophils % (A) 81 %; Platelet Count 235 k/uL (150-450); RBC 3.68 m/uL (3.80-5.40); RDW 13.4 % (11.5-15.5); WBC 5.3 k/uL (3.8-10.6)
[2023-01-13 14:17] LABS: Partial Thromboplastin Time 28.6 sec (22.0-30.0); Prothrombin Time 10.7 sec (9.0-12.0)
[2023-01-13 14:18] LABS: ALT 51 U/L (4-34); AST 56 U/L (14-36); African American GFR (CKD) 70 (>60 ml/min/1.73 sqM); Albumin 3.8 g/dL (3.5-5.0); Alkaline Phosphatase 160 U/L (38-126); Anion Gap 10 mmol/L; Blood Urea Nitrogen 13 mg/dL (7-17); Calcium 8.4 mg/dL (8.4-10.2); Carbon Dioxide 29 mmol/L (22-30); Chloride 100 mmol/L (98-107); Glucose 138 mg/dL (74-99); Magnesium 1.7 mg/dL (1.6-2.3); Non-African American GFR(CKD) 61 (>60 ml/min/1.73 sqM); Potassium 3.6 mmol/L (3.5-5.1); Sodium 139 mmol/L (137-145); Total Bilirubin 0.7 mg/dL (0.2-1.3); Total Protein 6.6 g/dL (6.3-8.2)
--- NOTE | 2023-01-13 14:43 | XR ---
EXAMINATION TYPE: XR chest 2V DATE OF EXAM: 01/13/2023 COMPARISON: 01/04/2023 HISTORY: Shortness of breath TECHNIQUE: Frontal and lateral views of the chest are obtained. FINDINGS: Scattered senescent parenchymal changes noted. Hyperinflation compatible with COPD. No evidence for infiltrate. No evidence for atelectasis. Heart size is stable. Mediastinal structures are stable and grossly unremarkable. No evidence for hilar prominence. Degenerative changes dorsal spine. IMPRESSION: 1. No evidence for acute pulmonary disease.
[2023-01-13] MEDS ORDERED: NALOXONE 0.4 MG/ML 1 ML VIAL IV PRN (15:29)
[2023-01-13] MEDS ORDERED: NITROGLYCERIN SL TABS 0.4 MG TAB SUBLINGUAL PRN (15:30)
[2023-01-13] MEDS ORDERED: ASPIRIN 81 MG PO STA (15:30)
[2023-01-13] MEDS ORDERED: BENZONATATE 100 MG CAP PO PRN (16:02)
[2023-01-13] MEDS ORDERED: DEXTROSE 50% SYRINGE 50 ML IVP PRN ×2 (16:04)
[2023-01-13] MEDS: dexAMETHasone 2 MG TAB PO SCH (16:17)
[2023-01-13 17:22] LABS: Glucose,Whole Blood 108 mg/dL (70-110)
[2023-01-13] MEDS: INSULIN ASPART (NovoLOG) 100 UNIT/ML VIAL SQ SCH ×2 (18:13→21:50)
--- NOTE | 2023-01-13 18:26 | CT ---
EXAMINATION TYPE: CT angio chest CT DLP: 568.8 mGycm, Automated exposure control for dose reduction was used. DATE OF EXAM: 01/13/2023 5:48 PM COMPARISON: Chest radiograph from same day.. CLINICAL INDICATION:Female, 82 years old with history of pe; elevated d-dimer, +covid TECHNIQUE/CONTRAST: CTA scan of the thorax is performed with IV Contrast, patient injected with 100 mL of Isovue 370, pul monary embolism protocol. MIP images are created and reviewed these [facility] FINDINGS: Pulmonary Artery: There is no evidence for a central filling defect within the pulmonary vasculature to suggest acute pulmonary embolism. Limited evaluation of the segmental and subsegmental branches se condary to bolus timing. The pulmonary artery is of normal size. Lungs/Pleura: Thickening of interlobular septa. Trace bilateral pleural effusions. No evidence of foc al consolidation pneumothorax. Airway: Large airways are patent. Heart: Heart is enlarged for size. Cardiac conduction leads are present terminating in the right vent ricle and right atrium. Vasculature: Mild atherosclerotic calcifications are present throughout the aorta and its branches. Mediastinum: No gross evidence of adenopathy. Moderate hiatal hernia. Musculoskeletal: Multilevel moderate degeneration changes with multiple wedge compression deformities with vertebroplasty changes. Their is at least moderate spinal canal stenosis posterior T8. Soft Tissues: Unremarkable. Lower neck: No significant findings. Upper Abdomen: The gallbladder surgically absent. IMPRESSION: 1. No evidence of central pulmonary embolism. Limited evaluation of the segmental and subsegmental b ranches. 2. Cardiomegaly with trace bilateral pleural effusions and pulmonary vascular congestion, correlate for congestive heart failure. 3. Moderate hiatal hernia. 4. Multilevel degeneration changes with vertebroplasty changes mild retropulsion with at least moder ate spinal canal stenosis at T8.
[2023-01-13] MEDS: NITROGLYCERIN OINT 1 INCH/GM PACKET TOPICAL SCH (19:02)
[2023-01-13] MEDS ORDERED: BUDESONIDE 0.5 MG/2 ML NEBU INHALATION SCH (20:00)
[2023-01-13] MEDS ORDERED: ALBUTEROL HFA INHALER INHALATION SCH (20:00)
[2023-01-13] MEDS ORDERED: ALBUTEROL NEBULIZED 2.5 MG/3 ML INHALATION SCH (20:00)
[2023-01-13] MEDS: ALBUTEROL HFA INHALER INHALATION SCH (20:18)
[2023-01-13] MEDS: GABAPENTIN 300 MG CAP PO SCH (21:45)
[2023-01-13] MEDS: HYDROcodone/APAP 7.5-325MG 1 EACH TAB PO PRN (21:45)
[2023-01-13] MEDS: APIXABAN 5 MG TAB PO SCH (21:46)
[2023-01-13] MEDS: hydrALAZINE HCL 25 MG TAB PO SCH (21:46)
[2023-01-13 21:49] LABS: Glucose,Whole Blood 247 mg/dL (70-110)
--- NOTE | 2023-01-13 22:07 | HP ---
HISTORY AND PHYSICAL CHIEF COMPLAINT: Shortness of breath, cough, and chest pain. HISTORY OF PRESENT ILLNESS: This is an 82-year-old woman with a past medical history of multiple medical problems including CAD, recent stenting, was complaining of shortness of breath and cough since Friday. The patient also has some cough and left-sided chest pain, mostly associated with cough. The patient came to [facility]. COVID-19 was positive. D-dimer was elevated. CT angio chest was being ordered. There is no history of any fever, rigors, or chills. The patient apparently not had taken her vaccine. PAST MEDICAL HISTORY: Reviewed include CAD stent, recent stent. Rest of the history and rest of the chart is also reviewed. HOME MEDICATIONS: Reviewed include apixaban. Dose and rest of medications reviewed. ALLERGIES: Reviewed include Ventolin. FAMILY HISTORY: History of myocardial infarction in the family. SOCIAL HISTORY: No history of smoking. No history of alcohol. REVIEW OF SYSTEMS: A 14-point review is negative except as mentioned earlier. PHYSICAL EXAMINATION: VITAL SIGNS: Pulse is 64, blood pressure 129/60, respirations 18. HEENT: Conjunctivae normal. NECK: No jugular venous distention. CARDIOVASCULAR: S1 and S2 muffled. RESPIRATIONS: A few scattered rhonchi. ABDOMEN: Soft, nontender. LEGS: No edema. NERVOUS SYSTEM: No focal deficits. SKIN: No ulcer, rash, or bleeding. JOINTS: No active deforming arthropathy. LABORATORY DATA: Reviewed. ASSESSMENT: 1. Left-sided chest pain, rule out coronary artery disease. 2. Acute COVID-19 infection with acute bronchitis. 3. Elevated D-dimer, rule out pulmonary embolism. 4. History of recent coronary artery disease stent. 5. Atrial fibrillation. 6. Diabetes mellitus, type 2. 7. Multiple medical issues. RECOMMENDATIONS: Recommend to continue current medications. Continue symptomatic treatment. Otherwise, at this time, I recommend cardiology evaluation and monitor blood sugars closely, initiate steroids, and Infectious Disease evaluation. The patient might be a candidate for remdesivir. Prognosis extremely guarded because of multiple complex medical issues. Further recommendations to follow. See orders for further details. Pulmonary is also being consulted. MMODL / IJN: [id number] /
[2023-01-14] MEDS: NITROGLYCERIN OINT 1 INCH/GM PACKET TOPICAL SCH ×4 (01:03→17:47)
[2023-01-14 06:18] LABS: Glucose,Whole Blood 227 mg/dL (70-110)
--- NOTE | 2023-01-14 06:25 | P.CNPUL ---
History of Present Illness Consult date: 01/14/23 Requesting physician: Rodrigo Dietrich Reason for consult: dyspnea Chief complaint: Shortness of breath History of present illness: I am seeing this patient in new consultation today 01/14/2023 in the emergency room for shortness of breath and cough that started approximately 1 week ago. The patient did test positive for COVID-19 on arrival. Patient is a 82-year-old white female who is technically a poor historian. She has past medical history significant for coronary artery disease status post stent to the LAD and pacemaker insertion earlier this month, atrial fibrillation, diabetes mellitus type 2, hyperlipidemia, hypertension, obesity, chronic back pain. Patient presented to emergency room yesterday evening complaining of shortness of breath that started approximately 1 week ago. Patient also has an associated nonproductive cough. Denies any fevers, chills, chest pain. She did test positive for COVID-19. Patient has had 2 original doses of COVID-19 Pfizer immunization and a booster immunization. Denies any chest pain. She does report occasional heart palpitations and lower extremity swelling. Patient does report left-sided lower back pain, and states this is chronic. She states that since her pacemaker insertion, she hasn't been able to use her TENS unit, and this has worsened the back pain. He is currently sitting up in bed, on 2 L nasal cannula, occasionally grimacing in pain reportedly due to her back. CTA on arrival was negative for any pulmonary embolism, it did show cardiomegaly with trace bilateral pleural effusions and pulmonary vascular congestion. There was a moderate sized hiatal hernia. There is also multilevel degenerative vertebral changes with vertebralplasty and mild retropulsion with at least moderate spinal canal stenosis at T8. CBC and BMP on arrival were unremarkable. Troponins are mildly elevated, probably related to supply mismatch. NT proBNP was 587, which is non-elevated for age. Home dose of Lasix was restarted. Patient is also receiving Decadron. Vital signs are stable. Review of Systems REVIEW OF SYSTEMS: CONSTITUTIONAL: Denies any recent significant weight loss or weight gain. EYES: Denies change in vision. EARS, NOSE, MOUTH, THROAT: Denies headaches, denies sore throat. CARDIOVASCULAR: See HPI RESPIRATORY: See HPI GASTROINTESTINAL: Denies change in appetite, abdominal pain, nausea and vomiting, or diarrhea GENITOURINARY: Denies hematuria, denies infections. MUSKULOSKELETAL: Denies pain, denies swelling. INTEGUMENTARY: Denies rash, denies eczema. NEUROLOGICAL: Denies recent memory loss, no recent seizure activity. PSYCHIATRIC: Denies anxiety, denies depression. HEMATOLOGIC/LYMPHATIC: Denies anemia, denies enlarged lymph node Past Medical History Past Medical History: Atrial Fibrillation, Chest Pain / Angina, Diabetes Mellitus, Hyperlipidemia, Hypertension, Osteoarthritis (OA), Pneumonia Additional Past Medical History / Comment(s): Paroxysmal Afib, POST OP INFECTION AFTER BACK SURGERY, CHRONIC BACK PAIN FROM T8 FX, CHRONIC PERIPHERAL LEG EDEMA,R humerus fracture. History of Any Multi-Drug Resistant Organisms: None Reported Past Surgical History: Back Surgery, Cholecystectomy, Orthopedic Surgery Additional Past Surgical History / Comment(s): 2015 LUMBAR SURGERY, FX NOSE REPAIR, BILATERAL CATARACT SURGERY, R WRIST CARPAL TUNNEL SURGERY, kyphoplasty T8 ON 06/26/16 AND ONE BEFORE. Past Anesthesia/Blood Transfusion Reactions: No Reported Reaction Additional Past Anesthesia/Blood Transfusion Reaction / Comment(s): NEVER HAD A BLOOD TRANSFUSION. Past Psychological History: No Psychological Hx Reported Smoking Status: Never smoker Past Alcohol Use History: None Reported Past Drug Use History: None Reported - Past Family History Father Family Medical History: Myocardial Infarction ([place]) Additional Family Medical History / Comment(s): FATHER AT AGE 52 OF AN [place] Mother Additional Family Medical History / Comment(s): MOTHER AT AGE 89 OF CELEBREX PROBLEM. Medications and Allergies Home Medications Medication Instructions Recorded Confirmed Type glipiZIDE XL [Glucotrol XL] 5 mg PO DAILY 12/04/17 01/13/23 History amLODIPine [Norvasc] 5 mg PO DAILY 04/09/18 01/13/23 History sitaGLIPtin [Januvia] 100 mg PO DAILY 04/09/18 01/13/23 History Montelukast [Singulair] 10 mg PO DAILY 03/28/19 01/13/23 History Atorvastatin [Lipitor] 40 mg PO DAILY 04/09/19 01/13/23 History Metoprolol Succinate [Toprol XL] 50 mg PO DAILY 09/16/20 01/13/23 History Apixaban [Eliquis] 5 mg PO BID 09/04/22 01/13/23 History Gabapentin 300 mg PO BID 09/04/22 01/13/23 History HYDROcodone/APAP 7.5-325MG [[place] 1 tab PO BID PRN 09/04/22 01/13/23 History 7.5-325] Insulin Glargine,Hum.rec.anlog 10 units SQ DAILY 09/04/22 01/13/23 History [Lantus Solostar Pen] Furosemide [Lasix] 40 mg PO DAILY #30 tab 09/06/22 01/13/23 Rx hydrALAZINE HCL [Apresoline] 25 mg PO BID #60 tab 09/06/22 01/13/23 Rx Meloxicam [Mobic] 15 mg PO DAILY 10/16/22 01/13/23 History Tolterodine Tartrate [Tolterodine 4 mg PO DAILY 10/16/22 01/13/23 History Tartrate ER] Albuterol Nebulized [Ventolin 2.5 mg INHALATION RT-QID 12/30/22 01/13/23 History Nebulized] Budesonide [Pulmicort] 0.5 mg INHALATION RT-BID 12/30/22 01/13/23 History Omeprazole 40 mg PO DAILY 12/30/22 01/13/23 History methocarbamoL [Robaxin] 500 mg PO Q6H PRN 12/30/22 01/13/23 History Clopidogrel [Plavix] 75 mg PO DAILY 30 Days #30 tab 01/05/23 01/13/23 Rx Losartan [Cozaar] 25 mg PO DAILY 30 Days #30 tab 01/05/23 01/13/23 Rx Benzonatate [Tessalon Perle] 200 mg PO TID PRN 01/13/23 01/13/23 History Allergies Allergy/AdvReac Type Severity Reaction Status Date / Time tetracycline Allergy Unknown Verified 01/13/23 15:49 fentanyl AdvReac "IN Verified 01/13/23 15:49 ANOTHER PLANET, DIDNT KNOW WHERE SHE WAS" morphine AdvReac Nausea & Verified 01/13/23 15:49 Vomiting Physical Exam Vitals: Vital Signs Temp Pulse Resp BP Pulse Ox 01/14/23 00:56 87 22 161/78 97 01/13/23 20:46 84 20 137/63 95 01/13/23 20:22 80 01/13/23 20:08 79 01/13/23 16:20 67 20 130/70 94 L 01/13/23 13:24 64 18 129/60 94 L 01/13/23 12:50 98.2 F 63 20 110/50 93 L Intake and Output 01/13/23 01/13/23 01/14/23 14:59 22:59 06:59 Other: # Voids 1 Weight 123.831 kg GENERAL EXAM: Alert, 82-year-old white female, fairly comfortable. HEAD: Normocephalic and atraumatic EYES: Normal reaction of pupils, equal size. NOSE: Clear with pink turbinates. THROAT: No erythema or exudates. NECK: No masses, no JVD. CHEST: No chest wall deformity. LUNGS: Equal air entry with scattered. No wheezes, crackles, or dullness. On 2 L nasal cannula. No conversational dyspnea or accessory muscle use.. CVS: S1 and S2 normal with no audible murmur, regular rhythm. No extra heart sounds ABDOMEN: Obese abdomen. No hepatosplenomegaly, active bowel sounds, no guarding or rigidity. SPINE: No scoliosis or deformity SKIN: No rashes CENTRAL NERVOUS SYSTEM: No focal deficits, tone is normal in all 4 extremities. EXTREMITIES: There is no peripheral edema, clubbing, or cyanosis. Peripheral pulses are intact. Results - Laboratory Findings CBC and BMP: 01/13/23 13:22 01/13/23 13:22 PT/INR, D-dimer PT 10.7 sec (9.0-12.0) 01/13/23 13:22 INR 1.0 (<1.2) 01/13/23 13:22 D-Dimer 0.91 mg/L FEU (<0.60) H 01/13/23 13:22 Abnormal lab findings: Abnormal Labs 01/13/23 01/13/23 01/13/23 13:22 13:22 13:22 RBC 3.68 L Lymphocytes # 0.4 L D-Dimer Glucose 138 H POC Glucose (mg/dL) AST 56 H ALT 51 H Alkaline Phosphatase 160 H Troponin I SARS-CoV-2 (PCR) Detected A 01/13/23 01/13/23 01/13/23 13:22 19:02 21:47 RBC Lymphocytes # D-Dimer 0.91 H Glucose POC Glucose (mg/dL) 247 H AST ALT Alkaline Phosphatase Troponin I 0.036 H* SARS-CoV-2 (PCR) - Diagnostic Findings Chest x-ray: image reviewed CT scan - chest: image reviewed Assessment and Plan Assessment: Acute hypoxemic respiratory failure secondary to COVID-19 infection and possible mild CHF exacerbation. Currently on 2 L nasal cannula. Chest CTA on arrival was negative for PE. No focal consolidation or evidence of pneumonia. It did show cardiomegaly with trace bilateral pleural effusions and pulmonary vascular congestion consistent with CHF exacerbation. NT proBNP was only 587. Chronic lower back pain, the patient undergone previous kyphoplasty of the thoracic spine. Coronary artery disease, status post stent to the LAD and pacemaker insertion earlier this month Paroxysmal atrial fibrillation, anticoagulated on Eliquis, currently in normal sinus rhythm Diabetes mellitus type 2 Hyperlipidemia Essential hypertension Morbid obesity with a BMI of 50 Plan: Patient's medications, labs, chest x-ray, chest CTA reviewed Continue supplemental oxygen to maintain oxygen saturation 92% or greater Continue Decadron and vitamin supplementation Continue bronchodilators Restart home Lasix Anticoagulated on Eliquis Vital signs are stable We will continue to follow I have personally seen and examined the patient, performed the documentation and the assessment and plan as written. Number of minutes spent on the visit:20 There is no joint evaluation that was done along with the nurse practitioner. This patient has been hospitalized for an acute hypoxic respiratory failure with Covid 19 infection. The patient has been vaccinated in the past including booster shots. This is her first infection with Covid 19. Note that her CT angiogram shows no evidence of any pulmonary embolism. D-dimer is low. There is some vague ground glass infiltrates bilaterally which could be related to either CHF or a component of Covid 19 related pneumonia. The patient has been symptomatic for the past For the past 1 week. Her symptoms are essentially cough and shortness of breath. Her cough is nonproductive. No fever or chills. She does have some mild transaminitis. D-dimer is low. The rest of the vital screening is negative. The patient is currently on Decadron. We'll order LDH and CRP and pro-calcitonin level. We'll titrate oxygen flow to maintain a saturation above 90%. We'll continue to follow. Evaluation was done in more than 30 minutes. Home medications have been resumed. Time with Patient: Greater than 30
[2023-01-14] MEDS: HYDROcodone/APAP 7.5-325MG 1 EACH TAB PO PRN ×3 (06:28→16:30)
[2023-01-14] MEDS: INSULIN DETEMIR (LEVEMIR) 100 UNIT/ML SYR SQ SCH (07:10)
[2023-01-14] MEDS: FLUTICASONE 110 MCG INHALER INHALATION SCH ×2 (07:46→20:51)
[2023-01-14] MEDS: ALBUTEROL HFA INHALER INHALATION SCH ×4 (07:48→20:51)
[2023-01-14 08:38] LABS: Glucose,Whole Blood 214 mg/dL (70-110)
[2023-01-14] MEDS ORDERED: FUROSEMIDE 10 MG/ML 4 ML VIAL IV STA (08:53)
[2023-01-14] MEDS: CLOPIDOGREL 75 MG TAB PO SCH (09:51)
[2023-01-14] MEDS: ZINC SULFATE 220 MG CAP PO SCH (09:51)
[2023-01-14] MEDS: ASPIRIN 325 MG TAB PO SCH (09:51)
[2023-01-14] MEDS: dexAMETHasone 2 MG TAB PO SCH (09:51)
[2023-01-14] MEDS: LOSARTAN 25 MG TAB PO SCH (09:52)
[2023-01-14] MEDS: amLODIPine 5 MG TAB PO SCH (09:52)
[2023-01-14] MEDS: ATORVASTATIN 40 MG TAB PO SCH (09:52)
[2023-01-14] MEDS: PANTOPRAZOLE 40 MG TABLET PO SCH (09:52)
[2023-01-14] MEDS: LINAGLIPTIN 5 MG TABLET PO SCH (09:52)
[2023-01-14] MEDS: ASCORBIC ACID 500 MG TAB PO SCH (09:52)
[2023-01-14] MEDS: APIXABAN 5 MG TAB PO SCH ×2 (09:52→20:42)
[2023-01-14] MEDS: FUROSEMIDE 40 MG TAB PO SCH (09:53)
[2023-01-14] MEDS: METOPROLOL SUCCINATE (ER) 50 MG TAB.ER.24H PO SCH (09:53)
[2023-01-14] MEDS: hydrALAZINE HCL 25 MG TAB PO SCH ×2 (09:53→20:42)
[2023-01-14] MEDS: MONTELUKAST 10 MG TAB PO SCH (09:53)
[2023-01-14] MEDS: GABAPENTIN 300 MG CAP PO SCH ×2 (09:53→20:42)
[2023-01-14] MEDS: INSULIN ASPART (NovoLOG) 100 UNIT/ML VIAL SQ SCH ×4 (10:01→20:43)
[2023-01-14] MEDS: OXYBUTYNIN 10 MG TAB.ER.24 PO SCH (10:56)
[2023-01-14 11:46] LABS: Glucose,Whole Blood 216 mg/dL (70-110)
[2023-01-14 11:50] LABS: C Reactive Protein 3.1 mg/dL (<1.0)
--- NOTE | 2023-01-14 13:19 | P.CRDCN ---
History of Present Illness Consult date: 01/14/23 Consult reason: congestive heart failure History of present illness: History of present illness: The patient is a pleasant 82-year-old female patient with a past medical history significant for paroxysmal atrial fibrillation status post cardioversion, sick sinus syndrome status post dual-chamber permanent pacemaker 12/30/2022, history of nonobstructive coronary artery disease, hypertension, hyperlipidemia, diabetes, obesity. We have been asked to evaluate the patient for chest pain. Patient gives history that she recently underwent stent and pacemaker and has not been feeling very good. She states she had some chest discomfort. She is grimacing with any movement on the stretcher and she states this is due to back pain. Patient has significant cough which she states is nonproductive. Patient is seen today in the emergency center waiting for a bed on the cardiac stepdown unit. EKG sinus rhythm no acute changes Chest x-ray no acute findings. CTA of the chest: No evidence of central pulmonary embolism. Limited evaluation of segmental and subsegmental branches. Cardiomegaly with trace bilateral pleural effusions and pulmonary vascular congestion correlate for heart failure. Moderate hiatal hernia. Multilevel degenerative changes with vertebral plasty changes retropulsion with moderate spinal canal stenosis at T8. WBC 5.3, hemoglobin 1.6, platelet count 235. INR 1. D-dimer 0.91. Electrolytes normal. BUN 13 creatinine 0.9. Lactic acid 1. Magnesium 1.7. Blood sugar 247. Troponin 0.032, 0.034, 0.036. Influenza A, influenza B, RSV not detected. Covid 19 positive. Home cardiac medications: Amlodipine 5 mg daily, eliquis 5 mg twice daily, Lipitor 40 mg daily, Plavix 75 mg daily, Lasix 40 mg daily, hydralazine 25 mg twice daily, losartan 25 mg daily, Toprol-XL 50 mg daily Cardiac catheterization 01/01/2023: Lesion involving the mid left anterior descending of 85-90%. Circumflex ostium 35% narrowing. Right coronary artery is free of significant disease. Left main is free of significant disease. Patient underwent PCI of the mid LAD. Echocardiogram 08/2022 revealed normal left ventricular size and systolic function. Mild mitral, aortic and tricuspid regurgitation. Mild pulmonary hypertension. Review Of Systems: At the time of my evaluation: Constitutional: No fever, no chills. No weakness, fatigue or lethargy. EENT: No headache. No dizziness. Lungs: Reports shortness of breath, reports cough, no sputum production. No wheezing. Cardiovascular: No chest pain, no lower extremity edema. No palpitations. No paroxysmal nocturnal dyspnea. No orthopnea. No lightheadedness or dizziness. No syncopal episodes. Abdominal: No abdominal pain. No nausea, vomiting. No diarrhea. No constipation. No bloody or tarry stools. Genitourinary: No dysuria.. No urinary retention. Musculoskeletal: No myalgias. No muscle weakness, no frequent falls. No back pain. No neck pain. Integumentary: No wounds. No rash. No unusual bruising. Neurologic: No aphasia. No facial droop. No change in mentation. No head injury. No headache. Physical examination: Gen: This is an 82-year-old female. She is resting and appears to be in no acute distress. VS: reviewed HEENT: Head is atraumatic, normocephalic. Pupils equal, round. Sclerae is anicteric. NECK: Supple. No JVD. . LUNGS: Coarse with audible rattling. No intercostal retractions. HEART: Regular rate and rhythm. No murmur. ABDOMEN: Soft No tenderness. EXTREMITIES: No pedal edema. No calf tenderness. NEUROLOGICAL: Patient is awake, alert and oriented x3. Assessment Chest discomfort appeared to be atypical. Bronchitis Multiple risk factors including diabetes and hypertension and dyslipidemia Paroxysmal atrial fibrillation History of sick sinus syndrome status post dual-chamber permanent pacemaker Coronary artery disease status post PCI of the mid LAD Morbid obesity Plan Pacemaker interrogation to be done by [employer] Resume patient's home cardiac medications Give 1 dose of IV Lasix 40 mg today No need to repeat echocardiogram Follow-up with the patient Thank you kindly for this consultation. Nurse practitioner note has been reviewed, I agree with documented findings and plan of care. Patient was seen and examined. Past Medical History Past Medical History: Atrial Fibrillation, Chest Pain / Angina, Diabetes Mellitus, Hyperlipidemia, Hypertension, Osteoarthritis (OA), Pneumonia Additional Past Medical History / Comment(s): Paroxysmal Afib, POST OP INFECTION AFTER BACK SURGERY, CHRONIC BACK PAIN FROM T8 FX, CHRONIC PERIPHERAL LEG NARGIS A,R humerus fracture. History of Any Multi-Drug Resistant Organisms: None Reported Past Surgical History: Back Surgery, Cholecystectomy, Orthopedic Surgery Additional Past Surgical History / Comment(s): 2014 LUMBAR SURGERY, FX NOSE REPAIR, BILATERAL CATARACT SURGERY, R WRIST CARPAL TUNNEL SURGERY, kyphoplasty T8 ON 06/26/16 AND ONE BEFORE. Past Anesthesia/Blood Transfusion Reactions: No Reported Reaction Additional Past Anesthesia/Blood Transfusion Reaction / Comment(s): NEVER HAD A BLOOD TRANSFUSION. Past Psychological History: No Psychological Hx Reported Smoking Status: Never smoker Past Alcohol Use History: None Reported Past Drug Use History: None Reported - Past Family History Father Family Medical History: Myocardial Infarction ([place]) Additional Family Medical History / Comment(s): FATHER AT AGE 52 OF AN [place] Mother Additional Family Medical History / Comment(s): MOTHER AT AGE 89 OF CELEBREX PROBLEM. Medications and Allergies Home Medications Medication Instructions Recorded Confirmed Type glipiZIDE XL [Glucotrol XL] 5 mg PO DAILY 12/04/17 01/13/23 History amLODIPine [Norvasc] 5 mg PO DAILY 04/09/18 01/13/23 History sitaGLIPtin [Januvia] 100 mg PO DAILY 04/09/18 01/13/23 History Montelukast [Singulair] 10 mg PO DAILY 03/28/19 01/13/23 History Atorvastatin [Lipitor] 40 mg PO DAILY 04/09/19 01/13/23 History Metoprolol Succinate [Toprol XL] 50 mg PO DAILY 09/16/20 01/13/23 History Apixaban [Eliquis] 5 mg PO BID 09/04/22 01/13/23 History Gabapentin 300 mg PO BID 09/04/22 01/13/23 History HYDROcodone/APAP 7.5-325MG [[place] 1 tab PO BID PRN 09/04/22 01/13/23 History 7.5-325] Insulin Glargine,Hum.rec.anlog 10 units SQ DAILY 09/04/22 01/13/23 History [Lantus Solostar Pen] Furosemide [Lasix] 40 mg PO DAILY #30 tab 09/06/22 01/13/23 Rx hydrALAZINE HCL [Apresoline] 25 mg PO BID #60 tab 09/06/22 01/13/23 Rx Meloxicam [Mobic] 15 mg PO DAILY 10/16/22 01/13/23 History Tolterodine Tartrate [Tolterodine 4 mg PO DAILY 10/16/22 01/13/23 History Tartrate ER] Albuterol Nebulized [Ventolin 2.5 mg INHALATION RT-QID 12/30/22 01/13/23 History Nebulized] Budesonide [Pulmicort] 0.5 mg INHALATION RT-BID 12/30/22 01/13/23 History Omeprazole 40 mg PO DAILY 12/30/22 01/13/23 History methocarbamoL [Robaxin] 500 mg PO Q6H PRN 12/30/22 01/13/23 History Clopidogrel [Plavix] 75 mg PO DAILY 30 Days #30 tab 01/05/23 01/13/23 Rx Losartan [Cozaar] 25 mg PO DAILY 30 Days #30 tab 01/05/23 01/13/23 Rx Benzonatate [Tessalon Perle] 200 mg PO TID PRN 01/13/23 01/13/23 History Allergies Allergy/AdvReac Type Severity Reaction Status Date / Time tetracycline Allergy Unknown Verified 01/13/23 15:49 fentanyl AdvReac "IN Verified 01/13/23 15:49 ANOTHER PLANET, DIDNT KNOW WHERE SHE WAS" morphine AdvReac Nausea & Verified 01/13/23 15:49 Vomiting Physical Exam Vitals: Vital Signs Temp Pulse Resp BP Pulse Ox 01/14/23 07:48 97 01/14/23 06:09 82 20 167/87 96 01/14/23 00:56 87 22 161/78 97 01/13/23 20:46 84 20 137/63 95 01/13/23 20:22 80 01/13/23 20:08 79 01/13/23 16:20 67 20 130/70 94 L 01/13/23 13:24 64 18 129/60 94 L 01/13/23 12:50 98.2 F 63 20 110/50 93 L Intake and Output 01/13/23 01/14/23 01/14/23 22:59 06:59 14:59 Other: # Voids 0 # Bowel Movements 0 Results 01/13/23 13:22 01/13/23 13:22 Cardiac Enzymes 01/13/23 01/13/23 01/13/23 Range/Units 13:22 13:22 16:09 AST 56 H (14-36) U/L Troponin I 0.032 0.034 (0.000-0.034) ng/mL 01/13/23 Range/Units 19:02 AST (14-36) U/L Troponin I 0.036 H* (0.000-0.034) ng/mL Coagulation 01/13/23 Range/Units 13:22 PT 10.7 (9.0-12.0) sec APTT 28.6 (22.0-30.0) sec CBC 01/13/23 Range/Units 13:22 WBC 5.3 (3.8-10.6) k/uL RBC 3.68 L (3.80-5.40) m/uL Hgb 11.6 (11.4-16.0) gm/dL Hct 34.7 (34.0-46.0) % Plt Count 235 (150-450) k/uL Comprehensive Metabolic Panel 01/13/23 Range/Units 13:22 Sodium 139 (137-145) mmol/L Potassium 3.6 (3.5-5.1) mmol/L Chloride 100 (98-107) mmol/L Carbon Dioxide 29 (22-30) mmol/L BUN 13 (7-17) mg/dL Creatinine 0.90 (0.52-1.04) mg/dL Glucose 138 H (74-99) mg/dL Calcium 8.4 (8.4-10.2) mg/dL AST 56 H (14-36) U/L ALT 51 H (4-34) U/L Alkaline Phosphatase 160 H (38-126) U/L Total Protein 6.6 (6.3-8.2) g/dL Albumin 3.8 (3.5-5.0) g/dL Current Medications Generic Name Dose Route Start Last Admin Trade Name Freq PRN Reason Stop Dose Admin Hydrocodone Bitart/Acetaminophen 1 each 01/13/23 16:02 01/14/23 06:28 Hydrocodone/Apap 7.5-325mg 1 Each Tab PO 1 each BID PRN Administration Pain Albuterol Sulfate 2 puff 01/13/23 20:00 01/14/23 07:48 Albuterol Hfa Inhaler INHALATION 2 puff RT-QID YOSSI Administration Amlodipine Besylate 5 mg 01/14/23 09:00 Amlodipine 5 Mg Tab PO DAILY YOSSI Apixaban 5 mg 01/13/23 21:00 01/13/23 21:46 Apixaban 5 Mg Tab PO 5 mg BID YOSSI Administration Protocol Ascorbic Acid 1,000 mg 01/14/23 09:00 Ascorbic Acid 500 Mg Tab PO DAILY [facility] Aspirin 325 mg 01/14/23 09:00 Aspirin 325 Mg Tab PO DAILY [facility] Atorvastatin Calcium 40 mg 01/14/23 09:00 Atorvastatin 40 Mg Tab PO DAILY [facility] Benzonatate 200 mg 01/13/23 16:02 Benzonatate 100 Mg Cap PO TID PRN Cough Clopidogrel Bisulfate 75 mg 01/14/23 09:00 Clopidogrel 75 Mg Tab PO DAILY [facility] Dexamethasone 6 mg 01/13/23 16:15 01/13/23 16:17 Dexamethasone 2 Mg Tab PO 6 mg DAILY [facility] Administration Dextrose/Water 25 ml 01/13/23 16:04 Dextrose 50% Syringe 50 Ml IVP PER PROTOCOL PRN Hypoglycemia Protocol Dextrose/Water 50 ml 01/13/23 16:04 Dextrose 50% Syringe 50 Ml IVP PER PROTOCOL PRN Hypoglycemia Protocol Fluticasone Propionate 2 puff 01/14/23 08:00 01/14/23 07:46 Fluticasone 110 Mcg Inhaler INHALATION Not Given RT-BID [facility] Furosemide 40 mg 01/14/23 09:00 Furosemide 40 Mg Tab PO DAILY [facility] Gabapentin 300 mg 01/13/23 21:00 01/13/23 21:45 Gabapentin 300 Mg Cap PO 300 mg BID [facility] Administration Glipizide 2.5 mg 01/14/23 07:30 Glipizide 2.5 Mg Tab PO AC-BID [facility] Hydralazine HCl 25 mg 01/13/23 21:00 01/13/23 21:46 Hydralazine Hcl 25 Mg Tab PO 25 mg BID [facility] Administration Insulin Aspart 0 unit 01/13/23 17:30 01/13/23 21:50 Insulin Aspart (Novolog) 100 Unit/Ml Vial SQ 8 unit ACHS [facility] Administration Protocol Insulin Detemir 10 unit 01/14/23 07:00 01/14/23 07:10 Insulin Detemir (Levemir) 100 Unit/Ml Syr SQ 10 unit DAILY@0700 [facility] Administration Linagliptin 5 mg 01/14/23 09:00 Linagliptin 5 Mg Tablet PO DAILY [facility] Losartan Potassium 25 mg 01/14/23 09:00 Losartan 25 Mg Tab PO DAILY [facility] Methocarbamol 500 mg 01/13/23 16:02 Methocarbamol 500 Mg Tab PO Q6H PRN MUSCLE PAIN Metoprolol Succinate 50 mg 01/14/23 09:00 Metoprolol Succinate (Er) 50 Mg Tab.Er.24h PO DAILY [facility] Montelukast Sodium 10 mg 01/14/23 09:00 Montelukast 10 Mg Tab PO DAILY [facility] Naloxone HCl 0.2 mg 01/13/23 15:29 Naloxone 0.4 Mg/Ml 1 Ml Vial IV Q2M PRN Opioid Reversal Nitroglycerin 0.4 mg 01/13/23 15:30 Nitroglycerin Sl Tabs 0.4 Mg Tab SUBLINGUAL Q5M PRN Chest Pain Nitroglycerin 1 inch 01/13/23 18:00 01/14/23 06:33 Nitroglycerin Oint 1 Inch/Gm Packet TOPICAL 1 inch Q6HR YOSSI Administration Oxybutynin Chloride 10 mg 01/14/23 09:00 Oxybutynin 10 Mg Tab.Er.24 PO DAILY [facility] Pantoprazole Sodium 40 mg 01/14/23 09:00 Pantoprazole 40 Mg Tablet PO DAILY [facility] Zinc Sulfate 220 mg 01/14/23 09:00 Zinc Sulfate 220 Mg Cap PO DAILY [facility] Intake and Output 01/13/23 01/14/23 01/14/23 22:59 06:59 14:59 Other: # Voids 0 # Bowel Movements 0 01/13/23 13:22 01/13/23 13:22
[2023-01-14] MEDS: methocarbamoL 500 MG TAB PO PRN ×2 (13:50→20:43)
[2023-01-14 17:13] LABS: Glucose,Whole Blood 304 mg/dL (70-110)
[2023-01-14 19:18] LABS: Basophils # (A) 0.01 X 10*3/uL (0.00-0.10); Basophils % (A) 0.2 %; Eosinophils # (A) 0 X 10*3/uL (0.04-0.35); Eosinophils % (A) 0 %; HCT 34.5 % (37.2-46.3); HGB 10.9 d/dL (12.0-15.0); Lymphocytes # (A) 0.37 X 10*3/uL (0.90-5.00); Lymphocytes % (A) 7.3 %; MCH 29.9 pg (27.0-32.0); MCHC 31.6 d/dL (32.0-37.0); MCV 94.8 FL (80.0-97.0); Mean Platelet Volume 10.5 FL (9.5-12.2); Monocytes # (A) 0.28 X 10*3/uL (0.20-1.00); Monocytes % (A) 5.5 %; NRBC Per 100 WBC 0 X 10*3/uL (0.00-0.01); Neutrophils # (A) 4.39 X 10*3/uL (1.80-7.70); Neutrophils % (A) 86.2 %; Platelet Count 256 X 10*3/uL (140-440); RBC 3.64 X 10*6/uL (4.10-5.20); RDW 13.6 % (11.5-14.5); WBC 5.09 X 10*3/uL (4.50-10.00)
[2023-01-14 20:05] LABS: Glucose,Whole Blood 225 mg/dL (70-110)
--- NOTE | 2023-01-14 22:55 | P.CONS ---
History of Present Illness - Reason for Consult Consult date: 01/14/23 - History of Present Illness Patient is a 82-year-old female with a past medical history significant for diabetes mellitus hypertension hyperlipidemia atrial fibrillation presenting to the ER for evaluation of increasing shortness of breath and cough symptom has been going on for about a week apparently the patie nt was in the hospital last week with similar symptoms and the patient did have a pacemaker and stent placement however the patient mention since her discharge from the hospital her breathing continue get worse to the point that she was awake at the breath for the patient presented to hospital patient also have a cough which is mild to moderate intensity moderate degenerating up any sputum patient denies any pleuritic chest pain has been complaining of more swelling to lower extremity with the symptoms the patient has been evaluated on arrival to the ER the patient was afebrile patient was by hypoxic with O2 sats of 93 to 94% however currently 97% on room air patient did have a normal white count with lymphopenia D-dimer mild elevated 0.91 did have normal kidney function liver enzymes mildly elevated CRP 3.1 COVID test came back positive influenza RSV was negative patient did have a chest x-ray no evidence of acute pulmonary disease CT angiogram of the chest no evidence of dental PE cardiomegaly with trace bilateral effusion moderate hiatal hernia infectious disease was consulted for the positive COVID and need for antiviral therapy Past Medical History Past Medical History: Atrial Fibrillation, Chest Pain / Angina, Diabetes Mellitus, Hyperlipidemia, Hypertension, Osteoarthritis (OA), Pneumonia Additional Past Medical History / Comment(s): Paroxysmal Afib, POST OP INFECTION AFTER BACK SURGERY, CHRONIC BACK PAIN FROM T8 FX, CHRONIC PERIPHERAL LEG EDEMA,R humerus fracture. History of Any Multi-Drug Resistant Organisms: None Reported Past Surgical History: Back Surgery, Cholecystectomy, Orthopedic Surgery Additional Past Surgical History / Comment(s): 2015 LUMBAR SURGERY, FX NOSE REPAIR, BILATERAL CATARACT SURGERY, R WRIST CARPAL TUNNEL SURGERY, kyphoplasty T8 ON 06/26/16 AND ONE BEFORE. Past Anesthesia/Blood Transfusion Reactions: No Reported Reaction Additional Past Anesthesia/Blood Transfusion Reaction / Comm: NEVER HAD A BLOOD TRANSFUSION. Past Psychological History: No Psychological Hx Reported Smoking Status: Never smoker Past Alcohol Use History: None Reported Past Drug Use History: None Reported - Past Family History Father Family Medical History: Myocardial Infarction ([place]) Additional Family Medical History / Comment(s): FATHER AT AGE 52 OF AN [place] Mother Additional Family Medical History / Comment(s): MOTHER AT AGE 89 OF CELEBREX PROBLEM. Medications and Allergies Home Medications Medication Instructions Recorded Confirmed Type glipiZIDE XL [Glucotrol XL] 5 mg PO DAILY 12/04/17 01/13/23 History amLODIPine [Norvasc] 5 mg PO DAILY 04/09/18 01/13/23 History sitaGLIPtin [Januvia] 100 mg PO DAILY 04/09/18 01/13/23 History Montelukast [Singulair] 10 mg PO DAILY 03/28/19 01/13/23 History Atorvastatin [Lipitor] 40 mg PO DAILY 04/09/19 01/13/23 History Metoprolol Succinate [Toprol XL] 50 mg PO DAILY 09/16/20 01/13/23 History Apixaban [Eliquis] 5 mg PO BID 09/04/22 01/13/23 History Gabapentin 300 mg PO BID 09/04/22 01/13/23 History HYDROcodone/APAP 7.5-325MG [[place] 1 tab PO BID PRN 09/04/22 01/13/23 History 7.5-325] Insulin Glargine,Hum.rec.anlog 10 units SQ DAILY 09/04/22 01/13/23 History [Lantus Solostar Pen] Furosemide [Lasix] 40 mg PO DAILY #30 tab 09/06/22 01/13/23 Rx hydrALAZINE HCL [Apresoline] 25 mg PO BID #60 tab 09/06/22 01/13/23 Rx Meloxicam [Mobic] 15 mg PO DAILY 10/16/22 01/13/23 History Tolterodine Tartrate [Tolterodine 4 mg PO DAILY 10/16/22 01/13/23 History Tartrate ER] Albuterol Nebulized [Ventolin 2.5 mg INHALATION RT-QID 12/30/22 01/13/23 History Nebulized] Budesonide [Pulmicort] 0.5 mg INHALATION RT-BID 12/30/22 01/13/23 History Omeprazole 40 mg PO DAILY 12/30/22 01/13/23 History methocarbamoL [Robaxin] 500 mg PO Q6H PRN 12/30/22 01/13/23 History Clopidogrel [Plavix] 75 mg PO DAILY 30 Days #30 tab 01/05/23 01/13/23 Rx Losartan [Cozaar] 25 mg PO DAILY 30 Days #30 tab 01/05/23 01/13/23 Rx Benzonatate [Tessalon Perle] 200 mg PO TID PRN 01/13/23 01/13/23 History Allergies Allergy/AdvReac Type Severity Reaction Status Date / Time tetracycline Allergy Unknown Verified 01/13/23 15:49 fentanyl AdvReac "IN Verified 01/13/23 15:49 ANOTHER PLANET, DIDNT KNOW WHERE SHE WAS" morphine AdvReac Nausea & Verified 01/13/23 15:49 Vomiting Physical Exam Vitals: Vital Signs Temp Pulse Pulse Resp BP BP Pulse Ox 01/14/23 08:30 98.9 F 74 16 132/74 95 01/14/23 08:00 98.8 F 72 16 150/66 97 01/14/23 07:48 97 01/14/23 06:09 82 20 167/87 96 01/14/23 00:56 87 22 161/78 97 01/13/23 20:46 84 20 137/63 95 01/13/23 20:22 80 01/13/23 20:08 79 01/13/23 16:20 67 20 130/70 94 L 01/13/23 15:37 97.8 F 18 150/66 97 01/13/23 13:24 64 18 129/60 94 L 01/13/23 12:50 98.2 F 63 20 110/50 93 L Intake and Output 01/13/23 01/14/23 01/14/23 22:59 06:59 14:59 Intake Total 100 Balance 100 Intake: Oral 100 Other: # Voids 0 # Bowel Movements 0 Weight 123.831 kg Results CBC & Chem 7: 01/14/23 10:36 01/13/23 13:22 Labs: Abnormal Lab Results - Last 24 Hours (Table) 01/13/23 01/13/23 01/13/23 Range/Units 13:22 13:22 13:22 RBC 3.68 L (3.80-5.40) m/uL Lymphocytes # 0.4 L (1.0-4.8) k/uL D-Dimer (<0.60) mg/L FEU Glucose 138 H (74-99) mg/dL POC Glucose (mg/dL) (70-110) mg/dL AST 56 H (14-36) U/L ALT 51 H (4-34) U/L Alkaline Phosphatase 160 H (38-126) U/L Troponin I (0.000-0.034) ng/mL SARS-CoV-2 (PCR) Detected A (Not Detectd) 01/13/23 01/13/23 01/13/23 Range/Units 13:22 19:02 21:47 RBC (3.80-5.40) m/uL Lymphocytes # (1.0-4.8) k/uL D-Dimer 0.91 H (<0.60) mg/L FEU Glucose (74-99) mg/dL POC Glucose (mg/dL) 247 H (70-110) mg/dL AST (14-36) U/L ALT (4-34) U/L Alkaline Phosphatase (38-126) U/L Troponin I 0.036 H* (0.000-0.034) ng/mL SARS-CoV-2 (PCR) (Not Detectd) 01/14/23 01/14/23 Range/Units 06:17 08:36 RBC (3.80-5.40) m/uL Lymphocytes # (1.0-4.8) k/uL D-Dimer (<0.60) mg/L FEU Glucose (74-99) mg/dL POC Glucose (mg/dL) 227 H 214 H (70-110) mg/dL AST (14-36) U/L ALT (4-34) U/L Alkaline Phosphatase (38-126) U/L Troponin I (0.000-0.034) ng/mL SARS-CoV-2 (PCR) (Not Detectd) Assessment and Plan Plan: 1patient presented to hospital with increasing shortness of breath which is likely multifactorial possible cardiac etiology the patient to have a positive COVID test however not running any fever chest x-ray was negative for acute pulmonary process CT angiogram of the chest did not show the groundglass opacities usually pathognomonic for COVID-pneumonia and rather showed bilateral effusion and possible of cardiac etiology, patient is also not hypoxic or need for supplemental oxygen these factors will disqualify her for remdesivir per [facility] policy. 2patient will continue with the current supportive treatment in the form of vitamin C zinc Eliquis and dexamethasone started by pulmonary 3-droplet isolation We will follow on clinical condition and cultures to further adjust medication if needed Thank you for this consultation we will follow the patient along with you Time with Patient: Greater than 30
[2023-01-15 05:17] VITALS: RESP 16
[2023-01-15 05:22] LABS: BUN/Creat Ratio 14.45 Ratio (12.00-20.00); Blood Urea Nitrogen 15.9 mg/dL (9.0-27.0); Calcium 9.2 mg/dL (8.7-10.3); Carbon Dioxide 27.8 mmol/L (21.6-31.8); Chloride 99 mmol/L (96-109); Chol/HDL Ratio 2.54 Ratio; Glucose 186 mg/dL (70-110); LDL Cholesterol,Calculated 89.8 mg/dL (0.0-131.0); Potassium 3.9 mmol/L (3.5-5.5); Sodium 141 mmol/L (135-145); VLDL Calculation 14.64 mg/dL (5.00-40.00)
--- NOTE | 2023-01-15 05:28 | PN ---
PROGRESS NOTE DATE OF SERVICE: 01/14/2023 SUBJECTIVE: This is an 82-year-old woman, who was admitted with left-sided chest pain, who also had acute COVID-19 infection. The chest CTA which was reviewed personally by me showed bilateral pneumonic process, possibly secondary to COVID-19 and some effusions as well. No fever. No cough. OBJECTIVE: VITAL SIGNS: Pulse is 72, blood pressure 115/60, respirations 18. HEENT: Conjunctivae are normal. NECK: No jugular venous distention. CARDIOVASCULAR: No murmur. RESPIRATORY: Breath sounds diminished at the bases. Scattered rhonchi. ABDOMEN: Soft and nontender. NERVOUS SYSTEM: Nonfocal. LABORATORY DATA: Reviewed. REVIEW OF SYSTEMS: Fourteen-point review is negative except as mentioned earlier. CURRENT MEDICATIONS: Reviewed include Eliquis. Rest of the medications are also noted. ASSESSMENT: 1. Left-sided chest pain. Rule out coronary artery disease. 2. Possible acute COVID-19 infection. COVID-19 bilateral interstitial pneumonia. 3. Elevated D-dimer. Pulmonary embolism ruled out. 4. History of recent coronary artery disease stent. 5. Atrial fibrillation. 6. Diabetes mellitus, type 2. 7. Multiple medical issues. RECOMMENDATIONS AND DISCUSSION: Recommend to continue current medications. Continue symptomatic treatment. The patient had elevated CRP. The troponin is also slightly elevated. I would recommend a 2D echo with Doppler. I would also recommend a procal; if the procal is positive, the patient will be a candidate for some antibiotics. Otherwise, we will closely follow with Infectious Disease, Pulmonary, and cardiology. Prognosis is extremely guarded because of multiple complex medical issues as mentioned earlier. Further recommendations to follow. MMODL / IJN: [id number] /
[2023-01-15 06:10] LABS: Glucose,Whole Blood 131 mg/dL (70-110)
[2023-01-15] MEDS: INSULIN ASPART (NovoLOG) 100 UNIT/ML VIAL SQ SCH ×2 (06:20→12:32)
[2023-01-15] MEDS: INSULIN DETEMIR (LEVEMIR) 100 UNIT/ML SYR SQ SCH (06:23)
[2023-01-15] MEDS: NITROGLYCERIN OINT 1 INCH/GM PACKET TOPICAL SCH ×3 (06:23→11:30)
[2023-01-15 07:56] LABS: Basophils % (A) 0 %; Eosinophils % (A) 0 %; HCT 36.1 % (34.0-46.0); HGB 11.5 gm/dL (11.4-16.0); Hypochromasia Slight; Lymphocytes # (A) 0.7 k/uL (1.0-4.8); Lymphocytes % (A) 6 %; MCH 30.4 pg (25.0-35.0); MCV 95.2 fL (80.0-100.0); Mean Platelet Volume 7.9; Monocytes # (A) 0.4 k/uL (0-1.0); Monocytes % (A) 4 %; Neutrophils # (A) 10.5 k/uL (1.3-7.7); Neutrophils % (A) 90 %; Platelet Count 349 k/uL (150-450); RBC 3.79 m/uL (3.80-5.40); RDW 13.3 % (11.5-15.5); WBC 11.7 k/uL (3.8-10.6)
[2023-01-15 08:34] LABS: Anion Gap 6 mmol/L; Carbon Dioxide 34 mmol/L (22-30); Chloride 98 mmol/L (98-107); Glucose 115 mg/dL (74-99); Potassium 4.1 mmol/L (3.5-5.1); Sodium 138 mmol/L (137-145); Total Protein 6.9 g/dL (6.3-8.2)
[2023-01-15 08:38] LABS: ALT 51 U/L (4-34); AST 52 U/L (14-36); African American GFR (CKD) 48 (>60 ml/min/1.73 sqM); Alkaline Phosphatase 154 U/L (38-126); Blood Urea Nitrogen 28 mg/dL (7-17); Calcium 9.1 mg/dL (8.4-10.2); Non-African American GFR(CKD) 42 (>60 ml/min/1.73 sqM); Total Bilirubin 0.7 mg/dL (0.2-1.3)
[2023-01-15] MEDS: methocarbamoL 500 MG TAB PO PRN (08:39)
[2023-01-15] MEDS: hydrALAZINE HCL 25 MG TAB PO SCH (08:40)
[2023-01-15] MEDS: dexAMETHasone 2 MG TAB PO SCH (08:40)
[2023-01-15] MEDS: LOSARTAN 25 MG TAB PO SCH (08:40)
[2023-01-15] MEDS: APIXABAN 5 MG TAB PO SCH (08:40)
[2023-01-15] MEDS: amLODIPine 5 MG TAB PO SCH (08:40)
[2023-01-15] MEDS: LINAGLIPTIN 5 MG TABLET PO SCH (08:40)
[2023-01-15] MEDS: GABAPENTIN 300 MG CAP PO SCH (08:40)
[2023-01-15] MEDS: METOPROLOL SUCCINATE (ER) 50 MG TAB.ER.24H PO SCH (08:40)
[2023-01-15] MEDS: ASCORBIC ACID 500 MG TAB PO SCH (08:40)
[2023-01-15] MEDS: MONTELUKAST 10 MG TAB PO SCH (08:40)
[2023-01-15] MEDS: ZINC SULFATE 220 MG CAP PO SCH (08:40)
[2023-01-15] MEDS: ATORVASTATIN 40 MG TAB PO SCH (08:40)
[2023-01-15] MEDS: FUROSEMIDE 40 MG TAB PO SCH (08:40)
[2023-01-15] MEDS: CLOPIDOGREL 75 MG TAB PO SCH (08:40)
[2023-01-15] MEDS: OXYBUTYNIN 10 MG TAB.ER.24 PO SCH (08:40)
[2023-01-15] MEDS: PANTOPRAZOLE 40 MG TABLET PO SCH (08:40)
[2023-01-15] MEDS: ASPIRIN 325 MG TAB PO SCH (08:40)
[2023-01-15 08:58] VITALS: BP 120/71; PULSE 63; TEMP 98
[2023-01-15] MEDS ORDERED: HYDROcodone/APAP 7.5-325MG 1 EACH TAB PO PRN (09:00)
[2023-01-15] MEDS: ALBUTEROL HFA INHALER INHALATION SCH (09:24)
[2023-01-15] MEDS: FLUTICASONE 110 MCG INHALER INHALATION SCH (09:24)
[2023-01-15 11:34] LABS: Glucose,Whole Blood 283 mg/dL (70-110)
--- NOTE | 2023-01-15 12:10 | P.PN ---
Subjective Progress Note Date: 01/15/23 History of present illness: The patient is a pleasant 82-year-old female patient with a past medical history significant for paroxysmal atrial fibrillation status post cardioversion, sick sinus syndrome status post dual-chamber permanent pacemaker 12/30/2022, history of nonobstructive coronary artery disease, hypertension, hyperlipidemia, diabetes, obesity. We have been asked to evaluate the patient for chest pain. Patient gives history that she recently underwent stent and pacemaker and has not been feeling very good. She states she had some chest discomfort. She is grimacing with any movement on the stretcher and she states this is due to back pain. Patient has significant cough which she states is nonproductive. Patient is seen today in the emergency center waiting for a bed on the cardiac stepdown unit. EKG sinus rhythm no acute changes Chest x-ray no acute findings. CTA of the chest: No evidence of central pulmonary embolism. Limited evaluation of segmental and subsegmental branches. Cardiomegaly with trace bilateral pleural effusions and pulmonary vascular congestion correlate for heart failure. Moderate hiatal hernia. Multilevel degenerative changes with vertebral plasty changes retropulsion with moderate spinal canal stenosis at T8. WBC 5.3, hemoglobin 1.6, platelet count 235. INR 1. D-dimer 0.91. Electrolytes normal. BUN 13 creatinine 0.9. Lactic acid 1. Magnesium 1.7. Blood sugar 247. Troponin 0.032, 0.034, 0.036. Influenza A, influenza B, RSV not detected. Covid 19 positive. Home cardiac medications: Amlodipine 5 mg daily, eliquis 5 mg twice daily, L ipitor 40 mg daily, Plavix 75 mg daily, Lasix 40 mg daily, hydralazine 25 mg twice daily, losartan 25 mg daily, Toprol-XL 50 mg daily Cardiac catheterization 01/01/2023: Lesion involving the mid left anterior descending of 85-90%. Circumflex ostium 35% narrowing. Right coronary artery is free of significant disease. Left main is free of significant disease. Patient underwent PCI of the mid LAD. Echocardiogram 08/2022 revealed normal left ventricular size and systolic function. Mild mitral, aortic and tricuspid regurgitation. Mild pulmonary hypertension. 01/15 Patient is seen today in follow-up. Pacemaker interrogation has been completed and was normal. Patient is complaining of back spasm. Her breathing is much better. Heart rate is in the 60s and 70s, blood pressure 120/71. Repeat blood work reveals WBC 11.7, hemoglobin 11.5, potassium 4.1 and BUN 28, creatinine 1.22. Mild elevation in the liver function tests noted. Physical examination: Gen: This is an 82-year-old female. She is resting and appears to be in no acute distress. VS: reviewed HEENT: Head is atraumatic, normocephalic. Pupils equal, round. Sclerae is anicteric. NECK: Supple. No JVD. . LUNGS: Coarse with audible rattling. No intercostal retractions. HEART: Regular rate and rhythm. No murmur. ABDOMEN: Soft No tenderness. EXTREMITIES: No pedal edema. No calf tenderness. NEUROLOGICAL: Patient is awake, alert and oriented x3. Assessment Chest discomfort, atypical. Bronchitis secondary to Covid 19 Multiple risk factors including diabetes and hypertension and dyslipidemia Paroxysmal atrial fibrillation History of sick sinus syndrome status post dual-chamber permanent pacemaker Coronary artery disease status post PCI of the mid LAD Morbid obesity Plan Continue patient's home cardiac medications Cardiology will sign off and follow on an as-needed basis. Please reconsult for any new concerns. Telemetry may be discontinued and patient may be transferred to Medr floor. Nurse practitioner note has been reviewed, I agree with documented findings and plan of care. Patient was seen and examined. Objective - Vital Signs Vital signs: Vital Signs Temp 97.7 F 01/15/23 04:00 Pulse 72 01/15/23 04:00 Resp 16 01/15/23 04:00 BP 135/63 01/15/23 04:00 Pulse Ox 96 01/15/23 04:00 FiO2 Intake & Output 01/14/23 01/15/23 01/15/23 18:59 06:59 18:59 Intake Total 454 Balance 454 Intake: Oral 454 Other: Voiding Method Toilet # Voids 1 # Bowel Movements 0 0 - Labs CBC & Chem 7: 01/15/23 07:31 01/15/23 07:31 Labs: Abnormal Lab Results - Last 24 Hours (Table) 01/14/23 01/14/23 01/14/23 Range/Units 10:36 10:36 10:36 WBC (3.8-10.6) k/uL RBC 3.64 L (4.10-5.20) X 10*6/uL Hgb 10.9 L (12.0-15.0) d/dL Hct 34.5 L (37.2-46.3) % MCHC 31.6 L (32.0-37.0) d/dL Neutrophils # (1.3-7.7) k/uL Lymphocytes # 0.37 L (0.90-5.00) X 10*3/uL Eosinophils # 0 L (0.04-0.35) X 10*3/uL Anion Gap 14.20 H (4.00-12.00) mmol/L Est GFR (CKD-EPI) 51 L (>=60) Glucose 186 H (70-110) mg/dL POC Glucose (mg/dL) (70-110) mg/dL Lactate Dehydrogenase 322 H (120-246) U/L C-Reactive Protein 3.1 H (<1.0) mg/dL HDL Cholesterol 67.60 H (40.00-60.00) mg/dL 01/14/23 01/14/23 01/14/23 Range/Units 11:43 17:10 20:03 WBC (3.8-10.6) k/uL RBC (4.10-5.20) X 10*6/uL Hgb (12.0-15.0) d/dL Hct (37.2-46.3) % MCHC (32.0-37.0) d/dL Neutrophils # (1.3-7.7) k/uL Lymphocytes # (0.90-5.00) X 10*3/uL Eosinophils # (0.04-0.35) X 10*3/uL Anion Gap (4.00-12.00) mmol/L Est GFR (CKD-EPI) (>=60) Glucose (70-110) mg/dL POC Glucose (mg/dL) 216 H 304 H 225 H (70-110) mg/dL Lactate Dehydrogenase (120-246) U/L C-Reactive Protein (<1.0) mg/dL HDL Cholesterol (40.00-60.00) mg/dL 01/15/23 01/15/23 Range/Units 06:06 07:31 WBC 11.7 H (3.8-10.6) k/uL RBC 3.79 L (4.10-5.20) X 10*6/uL Hgb (12.0-15.0) d/dL Hct (37.2-46.3) % MCHC (32.0-37.0) d/dL Neutrophils # 10.5 H (1.3-7.7) k/uL Lymphocytes # 0.7 L (0.90-5.00) X 10*3/uL Eosinophils # (0.04-0.35) X 10*3/uL Anion Gap (4.00-12.00) mmol/L Est GFR (CKD-EPI) (>=60) Glucose (70-110) mg/dL POC Glucose (mg/dL) 131 H (70-110) mg/dL Lactate Dehydrogenase (120-246) U/L C-Reactive Protein (<1.0) mg/dL HDL Cholesterol (40.00-60.00) mg/dL
--- NOTE | 2023-01-15 12:33 | CA ---
Transthoracic Echo Report Name: Hortencia Mcpherson Age: 82 Gender: F : 1940 Exam Date: 01/15/2023 09:59 Exam Location: [place] [facility] Ht (in): 62 Wt (lb): 273 Ordering Physician: Rodrigo Dietrich MD Attending/Referring Phys: Marketing Intelligence Manager Lisette Rosado RDCS Procedure CPT: Indications: high trops Cardiac Hx: Technical Quality: Fair Contrast 1: Total Dose (mL): Contrast 2: Total Dose (mL): MEASUREMENTS (Male / Female) Normal Values 2D ECHO LV Diastolic Diameter PLAX 4.4 cm 4.2 - 5.9 / 3.9 - 5.3 cm LV Systolic Diameter PLAX 2.5 cm IVS Diastolic Thickness 1.1 cm 0.6 - 1.0 / 0.6 - 0.9 cm LVPW Diastolic Thickness 1.3 cm 0.6 - 1.0 / 0.6 - 0.9 cm LV Relative Wall Thickness 0.6 DOPPLER TR Peak Velocity 320.2 cm/s TR Peak Gradient 41.0 mmHg Right Ventricular Systolic Press 46.0 mmHg FINDINGS Left Ventricle Limited study. Normal left ventricular systolic function with no obvious regional wall motion abnormalities. Left ventricular ejection fraction is estimated at 55-60 %. Right Ventricle Right Atrium Catheter/pacemaker wire in the right atrial cavity. Left Atrium Mitral Valve Aortic Valve Tricuspid Valve Pulmonic Valve Pericardium No pericardial effusion. Aorta CONCLUSIONS Limited 2-D echo Left ventricular ejection fraction 55-60% Right ventricular catheter in place No pericardial effusion Previewed by: Dr. Rome Marks DO (Electronically Signed) Final Date: 15 January 2023 12:32
--- NOTE | 2023-01-15 15:59 | P.PN ---
Subjective Progress Note Date: 01/15/23 I am seeing this patient in new consultation today 01/14/2023 in the emergency room for shortness of breath and cough that started approximately 1 week ago. The patient did test positive for COVID-19 on arrival. Patient is a 82-year-old white female who is technically a poor historian. She has past medical history significant for coronary artery disease status post stent to the LAD and pacemaker insertion earlier this month, atrial fibrillation, diabetes mellitus type 2, hyperlipidemia, hypertension, obesity, chronic back pain. Patient presented to emergency room yesterday evening complaining of shortness of breath that started approximately 1 week ago. Patient also has an associated nonprodu ctive cough. Denies any fevers, chills, chest pain. She did test positive for COVID-19. Patient has had 2 original doses of COVID-19 Pfizer immunization and a booster immunization. Denies any chest pain. She does report occasional heart palpitations and lower extremity swelling. Patient does report left-sided lower back pain, and states this is chronic. She states that since her pacemaker insertion, she hasn't been able to use her TENS unit, and this has worsened the back pain. He is currently sitting up in bed, on 2 L nasal cannula, occasionally grimacing in pain reportedly due to her back. CTA on arrival was negative for any pulmonary embolism, it did show cardiomegaly with trace bilateral pleural effusions and pulmonary vascular congestion. There was a moderate sized hiatal hernia. There is also multilevel degenerative vertebral changes with vertebralplasty and mild retropulsion with at least moderate spinal canal stenosis at T8. CBC and BMP on arrival were unremarkable. Troponins are mildly elevated, probably related to supply mismatch. NT proBNP was 587, which is non-elevated for age. Home dose of Lasix was restarted. Patient is also receiving Decadron. Vital signs are stable. On today's evaluation of 01/15/2023, I'm seeing the patient for a follow-up. Th e patient is feeling improved. The patient is on Decadron for now. The patient is anticoagulated with Eliquis. The patient is also on Lasix. No new complaints otherwise for now. Patient is probably going to be discharged home today. Objective - Vital Signs Vital signs: Vital Signs Temp 98 F 01/15/23 08:35 Pulse 63 01/15/23 08:35 Resp 16 01/15/23 08:35 BP 120/71 01/15/23 08:35 Pulse Ox 95 01/15/23 08:35 FiO2 Intake & Output 01/14/23 01/15/23 01/15/23 18:59 06:59 18:59 Intake Total 454 540 Balance 454 540 Intake: Oral 454 540 Other: Voiding Method Toilet # Voids 1 # Bowel Movements 0 0 - Exam GENERAL EXAM: Alert, 82-year-old white female, fairly comfortable. HEAD: Normocephalic and atraumatic EYES: Normal reaction of pupils, equal size. NOSE: Clear with pink turbinates. THROAT: No erythema or exudates. NECK: No masses, no JVD. CHEST: No chest wall deformity. LUNGS: Equal air entry with scattered. No wheezes, crackles, or dullness. On 2 L nasal cannula. No conversational dyspnea or accessory muscle use.. CVS: S1 and S2 normal with no audible murmur, regular rhythm. No extra heart sounds ABDOMEN: Obese abdomen. No hepatosplenomegaly, active bowel sounds, no guarding or rigidity. SPINE: No scoliosis or deformity SKIN: No rashes CENTRAL NERVOUS SYSTEM: No focal deficits, tone is normal in all 4 extremities. EXTREMITIES: There is no peripheral edema, clubbing, or cyanosis. Peripheral pulses are intact. - Labs CBC & Chem 7: 01/15/23 07:31 01/15/23 07:31 Labs: Abnormal Lab Results - Last 24 Hours (Table) 01/14/23 01/14/23 01/14/23 Range/Units 10:36 10:36 10:36 WBC (3.8-10.6) k/uL RBC 3.64 L (4.10-5.20) X 10*6/uL Hgb 10.9 L (12.0-15.0) d/dL Hct 34.5 L (37.2-46.3) % MCHC 31.6 L (32.0-37.0) d/dL Neutrophils # (1.3-7.7) k/uL Lymphocytes # 0.37 L (0.90-5.00) X 10*3/uL Eosinophils # 0 L (0.04-0.35) X 10*3/uL Carbon Dioxide (22-30) mmol/L Anion Gap 14.20 H (4.00-12.00) mmol/L BUN (7-17) mg/dL Creatinine (0.52-1.04) mg/dL Est GFR (CKD-EPI) 51 L (>=60) Glucose 186 H (70-110) mg/dL POC Glucose (mg/dL) (70-110) mg/dL AST (14-36) U/L ALT (4-34) U/L Alkaline Phosphatase (38-126) U/L Lactate Dehydrogenase 322 H (120-246) U/L C-Reactive Protein 3.1 H (<1.0) mg/dL HDL Cholesterol 67.60 H (40.00-60.00) mg/dL 01/14/23 01/14/23 01/14/23 Range/Units 11:43 17:10 20:03 WBC (3.8-10.6) k/uL RBC (4.10-5.20) X 10*6/uL Hgb (12.0-15.0) d/dL Hct (37.2-46.3) % MCHC (32.0-37.0) d/dL Neutrophils # (1.3-7.7) k/uL Lymphocytes # (0.90-5.00) X 10*3/uL Eosinophils # (0.04-0.35) X 10*3/uL Carbon Dioxide (22-30) mmol/L Anion Gap (4.00-12.00) mmol/L BUN (7-17) mg/dL Creatinine (0.52-1.04) mg/dL Est GFR (CKD-EPI) (>=60) Glucose (70-110) mg/dL POC Glucose (mg/dL) 216 H 304 H 225 H (70-110) mg/dL AST (14-36) U/L ALT (4-34) U/L Alkaline Phosphatase (38-126) U/L Lactate Dehydrogenase (120-246) U/L C-Reactive Protein (<1.0) mg/dL HDL Cholesterol (40.00-60.00) mg/dL 01/15/23 01/15/23 01/15/23 Range/Units 06:06 07:31 07:31 WBC 11.7 H (3.8-10.6) k/uL RBC 3.79 L (4.10-5.20) X 10*6/uL Hgb (12.0-15.0) d/dL Hct (37.2-46.3) % MCHC (32.0-37.0) d/dL Neutrophils # 10.5 H (1.3-7.7) k/uL Lymphocytes # 0.7 L (0.90-5.00) X 10*3/uL Eosinophils # (0.04-0.35) X 10*3/uL Carbon Dioxide 34 H (22-30) mmol/L Anion Gap (4.00-12.00) mmol/L BUN 28 H (7-17) mg/dL Creatinine 1.22 H (0.52-1.04) mg/dL Est GFR (CKD-EPI) (>=60) Glucose 115 H (70-110) mg/dL POC Glucose (mg/dL) 131 H (70-110) mg/dL AST 52 H (14-36) U/L ALT 51 H (4-34) U/L Alkaline Phosphatase 154 H (38-126) U/L Lactate Dehydrogenase (120-246) U/L C-Reactive Protein (<1.0) mg/dL HDL Cholesterol (40.00-60.00) mg/dL Assessment and Plan Assessment: Acute hypoxemic respiratory failure secondary to COVID-19 infection and possible mild CHF exacerbation. Currently on 2 L nasal cannula. Chest CTA on arrival was negative for PE. No focal consolidation or evidence of pneumonia. It did show cardiomegaly with trace bilateral pleural effusions and pulmonary vascular congestion consistent with CHF exacerbation. NT proBNP was only 587. Chronic lower back pain, the patient undergone previous kyphoplasty of the thoracic spine. Coronary artery disease, status post stent to the LAD and pacemaker insertion earlier this month Paroxysmal atrial fibrillation, anticoagulated on Eliquis, currently in normal sinus rhythm Diabetes mellitus type 2 Hyperlipidemia Essential hypertension Morbid obesity with a BMI of 50 Plan: Patient is clinically improved. The patient has no active complaints for now. The patient will complete a course of steroids. Home medications have been resumed. No active issues for now.
--- NOTE | 2023-01-16 14:52 | P.DS ---
Providers Date of admission: 01/14/23 14:30 Expected date of discharge: 01/15/23 Attending physician: Josue Oliver MD Consults: 01/13/23 15:29 Consult Physician Routine Consulting Provider: Nils Carrillo Consult Reason/Comments: cp Do you want consulting provider notified?: Yes 01/13/23 16:02 Consult Physician Routine Consulting Provider: Jordi Pelaez Consult Reason/Comments: covid Do you want consulting provider notified?: Yes Consult Physician Routine Consulting Provider: Victor Hugo Perez Consult Reason/Comments: covid Do you want consulting provider notified?: Yes Primary care physician: Rox Moreira Hospital Course: Final diagnosis Left-sided chest pain, ruled out ACS Acute COVID-19 infection with acute COVID-19 bilateral interstitial pneumonia elevated d-dimer with no evidence of PE on CT History of recent coronary artery disease with stenting Atrophic inhalation history Diabetes mellitus, type II Morbid Obesity with a BMI of 49.9 Full code Discharge disposition Patient is being discharged in a stable condition with guarded prognosis to home with home care. Patient will follow-up with Dr. Moreira in the outpatient setting upon discharge. Patient is to continue with oral dexamethasone along with vitamin and zinc supplements and close outpatient follow-up with pulmonary and cardiology as scheduled. Total time taken is greater than 35 minutes. Hospital course This is a 82-year-old female who was recently admitted with chest pain also found to have an acute COVID-19 infection being closely monitored. Patient showed some bilateral pneumonic process secondary to Covid and was maintained on 2 L of oxygen. There were trace effusions noted and patient was being monitored by pulmonary closely. Patient is continued on IV steroids along with vitamin and zinc supplements and will continue with dexamethasone along with vitamin and zinc on discharge. Patient has been cleared by consultations and patient reports will be going home with her daughter. Currently no reports of chest pain, worsening shortness of breath, or palpitations. Patient is afebrile. No reports of nausea or vomiting and patient is tolerating diet. Patient will be discharged home today. Physical exam: Gen: This is a 82-year-old female who is awake, alert and oriented 3, well- developed, well-nourished, morbidly obese HEENT: Head is atraumatic, normocephalic. Pupils equal, round. Sclerae is anicteric. NECK: Supple. No JVD. No lymphadenopathy. No thyromegaly. LUNGS: Diminished breath sounds bilaterally with some scattered coarse rhonchi. No intercostal retractions. HEART: S1, S2 are muffled ABDOMEN: Soft. Obese Bowel sounds are present. No masses. No tenderness. EXTREMITIES: No pedal edema. No calf tenderness. NEUROLOGICAL: Patient is awake, alert and oriented x3. Cranial nerves 2 through 12 are grossly intact. Diffusely weak Please refer to medication reconciliation sheet for a list of medications. The impression and plan of care has been dictated by Flores Fonseca, Nurse Practitioner as directed. Dr. Karlo MD I have performed a history and examination and MDM of this patient, discussed the same with the dictator, and agree with the dictator's assessment and plan as written ,documented as a scribe. Based on total visit time, I have performed more than 50% of the visit. Patient Condition at Discharge: Stable Plan - Discharge Summary Discharge Rx Participant: No New Discharge Prescriptions: New Aspirin 325 mg PO DAILY #30 tab dexAMETHasone ORAL [Hexadrol] 6 mg PO DAILY 7 Days #21 tab Nitroglycerin Sl Tabs [Nitrostat] 0.4 mg SUBLINGUAL Q5M PRN #20 tab PRN Reason: Chest Pain Ascorbic Acid [Vitamin C] 1,000 mg PO DAILY #60 tab Zinc Sulfate [Orazinc] 220 mg PO DAILY 14 Days #14 cap Continue glipiZIDE XL [Glucotrol XL] 5 mg PO DAILY amLODIPine [Norvasc] 5 mg PO DAILY sitaGLIPtin [Januvia] 100 mg PO DAILY Montelukast [Singulair] 10 mg PO DAILY Atorvastatin [Lipitor] 40 mg PO DAILY Metoprolol Succinate [Toprol XL] 50 mg PO DAILY Apixaban [Eliquis] 5 mg PO BID Tolterodine Tartrate [Tolterodine Tartrate ER] 4 mg PO DAILY Albuterol Nebulized [Ventolin Nebulized] 2.5 mg INHALATION RT-QID Budesonide [Pulmicort] 0.5 mg INHALATION RT-BID Omeprazole 40 mg PO DAILY Clopidogrel [Plavix] 75 mg PO DAILY 30 Days #30 tab Gabapentin 300 mg PO BID HYDROcodone/APAP 7.5-325MG [[place] 7.5-325] 1 tab PO BID PRN PRN Reason: Pain Insulin Glargine,Hum.rec.anlog [Lantus Solostar Pen] 10 units SQ DAILY hydrALAZINE HCL [Apresoline] 25 mg PO BID #60 tab Furosemide [Lasix] 40 mg PO DAILY #30 tab methocarbamoL [Robaxin] 500 mg PO Q6H PRN PRN Reason: Pain Losartan [Cozaar] 25 mg PO DAILY 30 Days #30 tab Benzonatate [Tessalon Perle] 200 mg PO TID PRN PRN Reason: Cough Discontinued Meloxicam [Mobic] 15 mg PO DAILY Discharge Medication List glipiZIDE XL [Glucotrol XL] 5 mg PO DAILY 12/04/17 [History] amLODIPine [Norvasc] 5 mg PO DAILY 04/09/18 [History] sitaGLIPtin [Januvia] 100 mg PO DAILY 04/09/18 [History] Montelukast [Singulair] 10 mg PO DAILY 03/28/19 [History] Atorvastatin [Lipitor] 40 mg PO DAILY 04/09/19 [History] Metoprolol Succinate [Toprol XL] 50 mg PO DAILY 09/16/20 [History] Apixaban [Eliquis] 5 mg PO BID 09/04/22 [History] Gabapentin 300 mg PO BID 09/04/22 [History] HYDROcodone/APAP 7.5-325MG [[place] 7.5-325] 1 tab PO BID PRN 09/04/22 [History] Insulin Glargine,Hum.rec.anlog [Lantus Solostar Pen] 10 units SQ DAILY 09/04/22 [History] Furosemide [Lasix] 40 mg PO DAILY #30 tab 09/06/22 [Rx] hydrALAZINE HCL [Apresoline] 25 mg PO BID #60 tab 09/06/22 [Rx] Tolterodine Tartrate [Tolterodine Tartrate ER] 4 mg PO DAILY 10/16/22 [History] Albuterol Nebulized [Ventolin Nebulized] 2.5 mg INHALATION RT-QID 12/30/22 [History] Budesonide [Pulmicort] 0.5 mg INHALATION RT-BID 12/30/22 [History] Omeprazole 40 mg PO DAILY 12/30/22 [History] methocarbamoL [Robaxin] 500 mg PO Q6H PRN 12/30/22 [History] Clopidogrel [Plavix] 75 mg PO DAILY 30 Days #30 tab 01/05/23 [Rx] Losartan [Cozaar] 25 mg PO DAILY 30 Days #30 tab 01/05/23 [Rx] Benzonatate [Tessalon Perle] 200 mg PO TID PRN 01/13/23 [History] Ascorbic Acid [Vitamin C] 1,000 mg PO DAILY #60 tab 01/15/23 [Rx] Aspirin 325 mg PO DAILY #30 tab 01/15/23 [Rx] Nitroglycerin Sl Tabs [Nitrostat] 0.4 mg SUBLINGUAL Q5M PRN #20 tab 01/15/23 [Rx] Zinc Sulfate [Orazinc] 220 mg PO DAILY 14 Days #14 cap 01/15/23 [Rx] dexAMETHasone ORAL [Hexadrol] 6 mg PO DAILY 7 Days #21 tab 01/15/23 [Rx] Follow up Appointment(s)/Referral(s): Rox Moreira DO [Primary Care Provider] - 01/22/23 11:40 am Jordi Pelaez MD [STAFF PHYSICIAN] - 01/29/23 10:00 am Ambulatory/Diagnostic Orders: Basic Metabolic Panel [LAB.AMB] Time Frame: 3 Days, Location: None Selected Patient Instructions/Handouts: Coronavirus Disease 2019 (COVID-19) Activity/Diet/Wound Care/Special Instructions: Activity Limited until follow-up Follow-up with primary care provider on discharge Follow-up with pulmonary outpatient Follow-up cardiology outpatient Continue taking medications as prescribed Discharge Disposition: HOME SELF-CARE
== END 2023-01-15 15:16 | disposition home or self-care (01) | DRG 177 ==
LOC: EC 12:45 → 6NMEDSUR 15:29 → 3SCARD 21:01 → OBSVTOIN 01-14 14:30
PROVIDERS: ADMIT Internal Medicine; ATTEND Internal Medicine
DX: U07.1 COVID-19 (principal); J12.82 Pneumonia due to coronavirus disease 2019; J96.01 Acute respiratory failure with hypoxia; Z68.43 Body mass index [BMI] 50.0-59.9, adult; J84.9 Interstitial pulmonary disease, unspecified; I27.20 Pulmonary hypertension, unspecified; I49.5 Sick sinus syndrome; E11.9 Type 2 diabetes mellitus without complications; M48.04 Spinal stenosis, thoracic region; I50.9 Heart failure, unspecified; I11.0 Hypertensive heart disease with heart failure; E66.01 Morbid (severe) obesity due to excess calories; I08.3 Combined rheumatic disorders of mitral, aortic and tricuspid valves; G89.29 Other chronic pain; M54.50 Low back pain, unspecified; I48.0 Paroxysmal atrial fibrillation; E78.5 Hyperlipidemia, unspecified; D72.810 Lymphocytopenia; K44.9 Diaphragmatic hernia without obstruction or gangrene; R79.89 Other specified abnormal findings of blood chemistry; I25.10 Atherosclerotic heart disease of native coronary artery without angina pectoris; M62.830 Muscle spasm of back; Z79.4 Long term (current) use of insulin; Z95.0 Presence of cardiac pacemaker; Z95.5 Presence of coronary angioplasty implant and graft; Z88.5 Allergy status to narcotic agent; Z88.1 Allergy status to other antibiotic agents; Z79.899 Other long term (current) drug therapy; Z79.02 Long term (current) use of antithrombotics/antiplatelets; Z79.1 Long term (current) use of non-steroidal anti-inflammatories (NSAID); Z79.01 Long term (current) use of anticoagulants; Z79.51 Long term (current) use of inhaled steroids; Z79.84 Long term (current) use of oral hypoglycemic drugs; Z82.49 Family history of ischemic heart disease and other diseases of the circulatory system
CPT/HCPCS: 36415; 71046; 71275; 80048; 80053; 80061; 83036; 83605; 83615; 83735; 83880; 84145; 84484; 85025; 85379; 85610; 85730; 86140; 87636; 93005; 93308; 94640; 94760; 99285

== ENCOUNTER 2023-01-17 04:07 | Inpatient (IN) | payer MEDICARE ==
[2023-01-17 05:41] LABS: Basophils % (A) 0 %; Eosinophils % (A) 0 %; HCT 31.6 % (34.0-46.0); HGB 10.5 gm/dL (11.4-16.0); Lymphocytes # (A) 0.4 k/uL (1.0-4.8); Lymphocytes % (A) 3 %; MCH 31.1 pg (25.0-35.0); MCHC 33.2 g/dL (31.0-37.0); MCV 93.8 fL (80.0-100.0); Monocytes # (A) 0.5 k/uL (0-1.0); Monocytes % (A) 4 %; Neutrophils # (A) 11.9 k/uL (1.3-7.7); Neutrophils % (A) 92 %; Platelet Count 327 k/uL (150-450); RBC 3.37 m/uL (3.80-5.40); RDW 13.6 % (11.5-15.5); WBC 12.9 k/uL (3.8-10.6)
--- NOTE | 2023-01-17 05:51 | ED ---
URI HPI - General Chief Complaint: Upper Respiratory Infection Stated Complaint: COVID+, Difficulty Breathing Time Seen by Provider: 01/17/23 04:10 Source: patient Mode of arrival: EMS Limitations: no limitations - History of Present Illness Initial Comments: 82-year-old female past history of A. fib, diabetes, hypertension who presents to the emergency room department with difficulty breathing. She was just discharged from our hospital today. States that she had a pacemaker and stents completed recently. She became short of breath and was tested for Covid and was positive. They discharged the patient home on steroids. States that she got home yesterday and did not do well at home at all. She was struggling to breathe. States she couldn't take it anymore and therefore called an ambulance. She took 2 breathing treatments that did not help her breathing. She denies chest pain. Admits to a wet cough. She does have bilateral calf swelling. No other alleviating, precipitating or modifying factors - Related Data Home Medications Medication Instructions Recorded Confirmed glipiZIDE XL [Glucotrol XL] 5 mg PO DAILY 12/04/17 01/17/23 amLODIPine [Norvasc] 5 mg PO DAILY 04/09/18 01/17/23 sitaGLIPtin [Januvia] 100 mg PO DAILY 04/09/18 01/17/23 Montelukast [Singulair] 10 mg PO DAILY 03/28/19 01/17/23 Atorvastatin [Lipitor] 40 mg PO DAILY 04/09/19 01/17/23 Metoprolol Succinate [Toprol XL] 50 mg PO DAILY 09/16/20 01/17/23 Apixaban [Eliquis] 5 mg PO BID 09/04/22 01/17/23 Gabapentin 300 mg PO BID 09/04/22 01/17/23 HYDROcodone/APAP 7.5-325MG [[place] 1 tab PO BID PRN 09/04/22 01/17/23 7.5-325] Insulin Glargine,Hum.rec.anlog 10 units SQ DAILY 09/04/22 01/17/23 [Lantus Solostar Pen] Tolterodine Tartrate [Tolterodine 4 mg PO DAILY 10/16/22 01/17/23 Tartrate ER] Albuterol Nebulized [Ventolin 2.5 mg INHALATION RT-QID 12/30/22 01/17/23 Nebulized] Budesonide [Pulmicort] 0.5 mg INHALATION RT-BID 12/30/22 01/17/23 Omeprazole 40 mg PO DAILY 12/30/22 01/17/23 methocarbamoL [Robaxin] 500 mg PO Q6H PRN 12/30/22 01/17/23 Benzonatate [Tessalon Perle] 200 mg PO TID PRN 01/13/23 01/17/23 Previous Rx's Medication Instructions Recorded Furosemide [Lasix] 40 mg PO DAILY #30 tab 09/06/22 hydrALAZINE HCL [Apresoline] 25 mg PO BID #60 tab 09/06/22 Clopidogrel [Plavix] 75 mg PO DAILY 30 Days #30 tab 01/05/23 Losartan [Cozaar] 25 mg PO DAILY 30 Days #30 tab 01/05/23 Ascorbic Acid [Vitamin C] 1,000 mg PO DAILY #60 tab 01/15/23 Aspirin 325 mg PO DAILY #30 tab 01/15/23 Nitroglycerin Sl Tabs [Nitrostat] 0.4 mg SUBLINGUAL Q5M PRN #20 tab 01/15/23 Zinc Sulfate [Orazinc] 220 mg PO DAILY 14 Days #14 cap 01/15/23 dexAMETHasone ORAL [Hexadrol] 6 mg PO DAILY 7 Days #21 tab 01/15/23 Allergies Allergy/AdvReac Type Severity Reaction Status Date / Time tetracycline Allergy Unknown Verified 01/17/23 07:02 fentanyl AdvReac "IN Verified 01/17/23 07:02 ANOTHER PLANET, DIDNT KNOW WHERE SHE WAS" morphine AdvReac Nausea & Verified 01/17/23 07:02 Vomiting Review of Systems ROS Statement: Those systems with pertinent positive or pertinent negative responses have been documented in the HPI. ROS Other: All systems not noted in ROS Statement are negative. Past Medical History Past Medical History: Atrial Fibrillation, Chest Pain / Angina, Diabetes Mellitus, Hyperlipidemia, Hypertension, Osteoarthritis (OA), Pneumonia Additional Past Medical History / Comment(s): Paroxysmal Afib, POST OP INFECTION AFTER BACK SURGERY, CHRONIC BACK PAIN FROM T8 FX, CHRONIC PERIPHERAL LEG EDEMA,R humerus fracture. History of Any Multi-Drug Resistant Organisms: None Reported Past Surgical History: Back Surgery, Cholecystectomy, Heart Catheterization With Stent, Orthopedic Surgery, Pacemaker Additional Past Surgical History / Comment(s): 2015 LUMBAR SURGERY, FX NOSE REPAIR, BILATERAL CATARACT SURGERY, R WRIST CARPAL TUNNEL SURGERY, kyphoplasty T8 ON 06/26/16 AND ONE BEFORE. Past Anesthesia/Blood Transfusion Reactions: No Reported Reaction Additional Past Anesthesia/Blood Transfusion Reaction / Comment(s): NEVER HAD A BLOOD TRANSFUSION. Past Psychological History: No Psychological Hx Reported Smoking Status: Never smoker Past Alcohol Use History: None Reported Past Drug Use History: None Reported - Past Family History Father Family Medical History: Myocardial Infarction (IA) Additional Family Medical History / Comment(s): FATHER AT AGE 52 OF AN IA Mother Additional Family Medical History / Comment(s): MOTHER AT AGE 89 OF CELEBREX PROBLEM. General Exam Limitations: no limitations General appearance: alert, lethargic Head exam: Present: atraumatic, normocephalic, normal inspection Eye exam: Present: normal appearance, PERRL, EOMI. Absent: scleral icterus, conjunctival injection, periorbital swelling ENT exam: Present: normal exam, mucous membranes moist Neck exam: Present: normal inspection. Absent: tenderness, meningismus, lymphadenopathy Respiratory exam: Present: normal lung sounds bilaterally. Absent: respiratory distress, wheezes, rales, rhonchi, stridor Cardiovascular Exam: Present: regular rate, normal rhythm, normal heart sounds. Absent: systolic murmur, diastolic murmur, rubs, gallop, clicks GI/Abdominal exam: Present: soft, normal bowel sounds. Absent: distended, tenderness, guarding, rebound, rigid Extremities exam: Present: normal inspection, full ROM, normal capillary refill. Absent: tenderness, pedal edema, joint swelling, calf tenderness Back exam: Present: normal inspection Neurological exam: Present: alert, oriented X3, CN II-XII intact Psychiatric exam: Present: normal affect, normal mood Skin exam: Present: warm, dry, intact, normal color. Absent: rash Course Vital Signs 01/17/23 01/17/23 01/17/23 04:08 04:17 04:36 Temperature 98.3 F Pulse Rate 73 64 Respiratory 20 18 Rate Blood Pressure 114/49 121/54 O2 Sat by Pulse 92 L 97 97 Oximetry 01/17/23 01/17/23 06:00 07:58 Temperature 98.6 F 97.8 F Pulse Rate 65 63 Respiratory 18 18 Rate Blood Pressure 117/61 130/52 O2 Sat by Pulse 97 93 L Oximetry Medical Decision Making - Medical Decision Making Was pt. sent in by a medical professional or institution (ROSMERY Fink, EXPERIMENTAL MACHINIST, urgent care, hospital, or [facility]...) When possible be specific @ -No Did you speak to anyone other than the patient for history (EMS, parent, family, police, friend...)? What history was obtained from this source @ -EMS Did you review nursing and triage notes (agree or disagree)? Why? @ -I reviewed and agree with nursing and triage notes Were old charts reviewed (outside hosp., previous admission, EMS record, old EKG, old radiological studies, urgent care reports/EKG's, [facility] records)? Report findings @ -Discharge summary from yesterday was reviewed Differential Diagnosis (chest pain, altered mental status, abdominal pain women, abdominal pain men, vaginal bleeding, weakness, fever, dyspnea, syncope, headache, dizziness, GI bleed, back pain, seizure, CVA, palpatations, mental h ealth, musculoskeletal)? @ -Differential Dyspnea: Coronary syndrome, arrhythmia, tamponade, asthma, COPD, pulmonary embolism, pneumonia, pneumothorax, pulmonary effusion, anaphylaxis, diabetic ketoacidosis, flailed chest, pulmonary contusion, diaphragmatic rupture, anemia, neuro muscular, this is not meant to be an all-inclusive list. EKG interpreted by me (3pts min.). @ -Yes and demonstrates sinus rhythm with rate of 65. VA interval 181. QRS 94. QTC 430. No acute ST segment elevations or depressions X-rays interpreted by me (1pt min.). @ -Chest x-ray demonstrates right basilar infiltrate CT interpreted by me (1pt min.). @ -None done U/S interpreted by me (1pt. min.). @ -None done What testing was considered but not performed or refused? (CT, X-rays, U/S, labs)? Why? @ -None What meds were considered but not given or refused? Why? @ -None Did you discuss the management of the patient with other professionals (camden lopez i.e. ROSMERY Fink, EXPERIMENTAL MACHINIST, lab, RT, psych nurse, director social service, imagery intelligence, teacher, seaman officer, caser up)? Give summary @ -Spoke with Dr. Mendoza who agreed to admit patient Was smoking cessation discussed for >3mins.? @ -No Was critical care preformed (if so, how long)? @ -No Were there social determinants of health that impacted care today? How? (Homelessness, low income, unemployed, alcoholism, drug addiction, transportation, low edu. Level, literacy, decrease access to med. care, residential, rehab)? @ -No Was there de-escalation of care discussed even if they declined (Discuss DNR or withdrawal of care, Hospice)? DNR status @ -No What co-morbidities impacted this encounter? (DM, HTN, Smoking, COPD, CAD, Cancer, CVA, ARF, Chemo, Hep., AIDS, mental health diagnosis, sleep apnea, morbid obesity)? @ -A. fib, diabetes, hypertension Was patient admitted / discharged? Hospital course, mention meds given and route, prescriptions, significant lab abnormalities, going to OR and other pertinent info. @ -Upon arrival patient is placed into room 3. A thorough history and physical exam is performed. Patient was saturating 87% at her house. She was started on 3 L by EMS. IV access is established. Laboratory studies are conducted. Chest x-ray is performed. BNP is elevated. Patient has a lactic acid of 3. She was given 60 mg of Lasix. Recommended admission for which the patient was agreeable. Spoke with Dr. Mendoza who agreed to admit the patient. Currently awaiting a bed on the floor Undiagnosed new problem with uncertain prognosis? @ -No Drug Therapy requiring intensive monitoring for toxicity (Heparin, Nitro, Insulin, Cardizem)? @ -No Were any procedures done? @ -No Diagnosis/symptom? @ -Acute hypoxic respiratory failure, acute Covid infection, elevated BNP Acute, or Chronic, or Acute on Chronic? @ -Acute Uncomplicated (without systemic symptoms) or Complicated (systemic symptoms)? @ -Complicated Side effects of treatment? @ -No Exacerbation, Progression, or Severe Exacerbation? @ -No Poses a threat to life or bodily function? How? (Chest pain, [place], [place], pneumonia, PE, COPD, DKA, ARF, appy, cholecystitis, CVA, Diverticulitis, Homicidal, Suicidal, threat to staff... and all critical care pts) @ -Yes patient does present with hypoxic respiratory failure - Lab Data Result diagrams: 01/19/23 06:38 01/19/23 06:38 Lab Results 01/17/23 01/17/23 01/17/23 Range/Units 05:27 05:27 05:27 WBC 12.9 H (3.8-10.6) k/uL RBC 3.37 L (3.80-5.40) m/uL Hgb 10.5 L (11.4-16.0) gm/dL Hct 31.6 L (34.0-46.0) % MCV 93.8 (80.0-100.0) fL MCH 31.1 (25.0-35.0) pg MCHC 33.2 (31.0-37.0) g/dL RDW 13.6 (11.5-15.5) % Plt Count 327 (150-450) k/uL MPV 8.0 Neutrophils % 92 % Lymphocytes % 3 % Monocytes % 4 % Eosinophils % 0 % Basophils % 0 % Neutrophils # 11.9 H (1.3-7.7) k/uL Lymphocytes # 0.4 L (1.0-4.8) k/uL Monocytes # 0.5 (0-1.0) k/uL Eosinophils # 0.0 (0-0.7) k/uL Basophils # 0.0 (0-0.2) k/uL PT (9.0-12.0) sec INR (<1.2) APTT (22.0-30.0) sec Sodium 135 L (137-145) mmol/L Potassium 4.0 (3.5-5.1) mmol/L Chloride 98 (98-107) mmol/L Carbon Dioxide 26 (22-30) mmol/L Anion Gap 11 mmol/L BUN 41 H (7-17) mg/dL Creatinine 1.22 H (0.52-1.04) mg/dL Est GFR (CKD-EPI)AfAm 48 (>60 ml/min/1.73 sqM) Est GFR (CKD-EPI)NonAf 42 (>60 ml/min/1.73 sqM) Glucose 300 H (74-99) mg/dL Lactic Ac Sepsis Rflx Plasma Lactic Acid Gary 3.0 H* (0.7-2.0) mmol/L Calcium 8.6 (8.4-10.2) mg/dL Total Bilirubin 0.6 (0.2-1.3) mg/dL AST 31 (14-36) U/L ALT 37 H (4-34) U/L Alkaline Phosphatase 124 (38-126) U/L Troponin I (0.000-0.034) ng/mL NT-Pro-B Natriuret Pep pg/mL Total Protein 6.5 (6.3-8.2) g/dL Albumin 3.8 (3.5-5.0) g/dL Coronavirus (PCR) (Not Detectd) 01/17/23 01/17/23 01/17/23 Range/Units 05:27 05:27 05:44 WBC (3.8-10.6) k/uL RBC (3.80-5.40) m/uL Hgb (11.4-16.0) gm/dL Hct (34.0-46.0) % MCV (80.0-100.0) fL MCH (25.0-35.0) pg MCHC (31.0-37.0) g/dL RDW (11.5-15.5) % Plt Count (150-450) k/uL MPV Neutrophils % % Lymphocytes % % Monocytes % % Eosinophils % % Basophils % % Neutrophils # (1.3-7.7) k/uL Lymphocytes # (1.0-4.8) k/uL Monocytes # (0-1.0) k/uL Eosinophils # (0-0.7) k/uL Basophils # (0-0.2) k/uL PT (9.0-12.0) sec INR (<1.2) APTT (22.0-30.0) sec Sodium (137-145) mmol/L Potassium (3.5-5.1) mmol/L Chloride (98-107) mmol/L Carbon Dioxide (22-30) mmol/L Anion Gap mmol/L BUN (7-17) mg/dL Creatinine (0.52-1.04) mg/dL Est GFR (CKD-EPI)AfAm (>60 ml/min/1.73 sqM) Est GFR (CKD-EPI)NonAf (>60 ml/min/1.73 sqM) Glucose (74-99) mg/dL Lactic Ac Sepsis Rflx Plasma Lactic Acid Gary (0.7-2.0) mmol/L Calcium (8.4-10.2) mg/dL Total Bilirubin (0.2-1.3) mg/dL AST (14-36) U/L ALT (4-34) U/L Alkaline Phosphatase (38-126) U/L Troponin I 0.040 H* (0.000-0.034) ng/mL NT-Pro-B Natriuret Pep 2280 pg/mL Total Protein (6.3-8.2) g/dL Albumin (3.5-5.0) g/dL Coronavirus (PCR) Detected A (Not Detectd) 01/17/23 01/17/23 Range/Units 06:04 06:34 WBC (3.8-10.6) k/uL RBC (3.80-5.40) m/uL Hgb (11.4-16.0) gm/dL Hct (34.0-46.0) % MCV (80.0-100.0) fL MCH (25.0-35.0) pg MCHC (31.0-37.0) g/dL RDW (11.5-15.5) % Plt Count (150-450) k/uL MPV Neutrophils % % Lymphocytes % % Monocytes % % Eosinophils % % Basophils % % Neutrophils # (1.3-7.7) k/uL Lymphocytes # (1.0-4.8) k/uL Monocytes # (0-1.0) k/uL Eosinophils # (0-0.7) k/uL Basophils # (0-0.2) k/uL PT 11.7 (9.0-12.0) sec INR 1.1 (<1.2) APTT 45.3 H (22.0-30.0) sec Sodium (137-145) mmol/L Potassium (3.5-5.1) mmol/L Chloride (98-107) mmol/L Carbon Dioxide (22-30) mmol/L Anion Gap mmol/L BUN (7-17) mg/dL Creatinine (0.52-1.04) mg/dL Est GFR (CKD-EPI)AfAm (>60 ml/min/1.73 sqM) Est GFR (CKD-EPI)NonAf (>60 ml/min/1.73 sqM) Glucose (74-99) mg/dL Lactic Ac Sepsis Rflx Y Plasma Lactic Acid Gary (0.7-2.0) mmol/L Calcium (8.4-10.2) mg/dL Total Bilirubin (0.2-1.3) mg/dL AST (14-36) U/L ALT (4-34) U/L Alkaline Phosphatase (38-126) U/L Troponin I (0.000-0.034) ng/mL NT-Pro-B Natriuret Pep pg/mL Total Protein (6.3-8.2) g/dL Albumin (3.5-5.0) g/dL Coronavirus (PCR) (Not Detectd) Disposition Clinical Impression: COVID-19, Congestive heart failure, Hypoxia Disposition: ADMITTED IP TO THIS [facility] Condition: Good Is patient prescribed a controlled substance at d/c from ED?: No Time of Disposition: 06:44 Decision to Admit Reason: Admit from EC Decision Date: 01/17/23 Decision Time: 06:44
[2023-01-17 05:53] LABS: ALT 37 U/L (4-34); AST 31 U/L (14-36); African American GFR (CKD) 48 (>60 ml/min/1.73 sqM); Albumin 3.8 g/dL (3.5-5.0); Alkaline Phosphatase 124 U/L (38-126); Anion Gap 11 mmol/L; Blood Urea Nitrogen 41 mg/dL (7-17); Calcium 8.6 mg/dL (8.4-10.2); Carbon Dioxide 26 mmol/L (22-30); Chloride 98 mmol/L (98-107); Glucose 300 mg/dL (74-99); Non-African American GFR(CKD) 42 (>60 ml/min/1.73 sqM); Sodium 135 mmol/L (137-145); Total Bilirubin 0.6 mg/dL (0.2-1.3); Total Protein 6.5 g/dL (6.3-8.2)
[2023-01-17] MEDS ORDERED: NALOXONE 0.4 MG/ML 1 ML VIAL IV PRN (06:44)
[2023-01-17] MEDS ORDERED: FUROSEMIDE 10 MG/ML 10 ML VIAL IV STA (06:44)
--- NOTE | 2023-01-17 07:17 | XR ---
EXAMINATION TYPE: XR chest 1V portable DATE OF EXAM: 01/17/2023 HISTORY: Shortness of breath. COMPARISON: 01/13/2023 TECHNIQUE: Single view of the chest is submitted. FINDINGS: Demonstrated are scattered senescent parenchymal change. Mild increased density right lung base which may reflect atelectasis or developing infiltrate. Correl ate clinically and progress studies are recommended. The heart is stable. Hilar and mediastinal structures are within normal limits. Degenerative changes are seen of the dorsal spine. IMPRESSION: 1. Mild increased density right lung base which may reflect atelectasis or developing infiltrate. Co rrelate clinically and progress studies are recommended.
[2023-01-17 07:22] LABS: INR 1.1 (<1.2); Partial Thromboplastin Time 45.3 sec (22.0-30.0); Prothrombin Time 11.7 sec (9.0-12.0)
[2023-01-17] MEDS: ALBUTEROL HFA INHALER INHALATION SCH ×4 (08:10→21:36)
[2023-01-17] MEDS ORDERED: HYDROcodone/APAP 7.5-325MG 1 EACH TAB PO PRN (10:01)
[2023-01-17] MEDS ORDERED: ALBUTEROL NEBULIZED 2.5 MG/3 ML INHALATION SCH (12:00)
[2023-01-17] MEDS: methocarbamoL 500 MG TAB PO PRN ×2 (12:27→19:57)
--- NOTE | 2023-01-17 12:32 | P.CRDCN ---
History of Present Illness Consult date: 01/17/23 Consult reason: congestive heart failure (ACUTE) History of present illness: History of present illness: This is an 82-year-old female patient with a past medical history significant for paroxysmal atrial fibrillation status post cardioversion, sick sinus syndrome status post dual-chamber permanent pacemaker 12/30/2022, history of nonobstructive coronary artery disease, hypertension, hyperlipidemia, diabetes, obesity. We have been asked to evaluate the patient for acute heart failure. Patient has had multiple recent hospitalizations and was positive for Covid on her last hospitalization at which time we evaluated for atypical chest disco mfort. We have been asked to evaluate the patient for acute CHF. Patient gives history of having sudden onset of breathing that worsened along with back pain. She states she is taking all of her medications as directed. Patient received 1 dose of IV Lasix 60 mg in the emergency center. Patient is seen today on the cardiac stepdown unit. EKG sinus rhythm no acute changes Chest x-ray mild increased density in the right lung base may reflect atelectasis or developing infiltrate. WBC 12.9, hemoglobin 10.5, platelet count 327. Sodium 135, potassium 4, chloride 98, CO2 26, BUN 41 and creatinine 1.22. Blood sugar 300. Lactic acid 3 followed by 1.7. Total bilirubin on there troponin 0.04. Chronic virus PCR positive. ProBNP 2280. Home cardiac medications: Amlodipine 5 mg daily, eliquis 5 mg twice daily, aspirin 325 mg daily, Lipitor 40 mg daily, Plavix 75 mg daily, Lasix 40 mg daily, hydralazine 25 mg twice daily, losartan 25 mg daily, Toprol-XL 50 mg daily, Nitrostat as needed Cardiac catheterization 01/01/2023: Lesion involving the mid left anterior descending of 85-90%. Circumflex ostium 35% narrowing. Right coronary artery is free of significant disease. Left main is free of significant disease. Patient underwent PCI of the mid LAD. Echocardiogram 08/2022 revealed normal left ventricular size and systolic function. Mild mitral, aortic and tricuspid regurgitation. Mild pulmonary hypertension. Review Of Systems: At the time of my evaluation: Constitutional: No fever, no chills. No weakness, fatigue or lethargy. EENT: No headache. No dizziness. Lungs: Reports shortness of breath, reports cough, no sputum production. No wheezing. Cardiovascular: No chest pain, no lower extremity edema. No palpitations. No paroxysmal nocturnal dyspnea. No orthopnea. No lightheadedness or dizziness. No syncopal episodes. Abdominal: No abdominal pain. No nausea, vomiting. No diarrhea. No constipation. No bloody or tarry stools. Genitourinary: No dysuria.. No urinary retention. Musculoskeletal: No myalgias. No muscle weakness, no frequent falls. No back pain. No neck pain. Integumentary: No wounds. No rash. No unusual bruising. Neurologic: No aphasia. No facial droop. No change in mentation. No head injury. No headache. Physical examination: Gen: This is an 82-year-old female. She is resting in bed and appears to be in no acute distress. VS: reviewed HEENT: Head is atraumatic, normocephalic. Pupils equal, round. Sclerae is anicteric. NECK: Supple. No JVD. . LUNGS: Coarse with audible rattling. Frequent coarse coughing. No intercostal retractions. HEART: Regular rate and rhythm. No murmur. ABDOMEN: Soft No tenderness. EXTREMITIES: No pedal edema. No calf tenderness. NEUROLOGICAL: Patient is awake, alert and oriented x3. Assessment COVID-19 with possible pneumonia Bronchitis Multiple risk factors including diabetes and hypertension and dyslipidemia Paroxysmal atrial fibrillation History of sick sinus syndrome status post dual-chamber permanent pacemaker Coronary artery disease status post PCI of the mid LAD Morbid obesity Plan Resume patient's home cardiac medications Patient started on Lasix 40 mg daily oral for 3 days No need to repeat echocardiogram Follow-up with the patient Thank you kindly for this consultation. Nurse practitioner note has been reviewed, I agree with documented findings and plan of care. Patient was seen and examined. Past Medical History Past Medical History: Atrial Fibrillation, Chest Pain / Angina, Diabetes Mellitus, Hyperlipidemia, Hypertension, Osteoarthritis (OA), Pneumonia Additional Past Medical History / Comment(s): Paroxysmal Afib, POST OP INFECTION AFTER BACK SURGERY, CHRONIC BACK PAIN FROM T8 FX, CHRONIC PERIPHERAL LEG EDEMA,R humerus fracture. History of Any Multi-Drug Resistant Organisms: None Reported Past Surgical History: Back Surgery, Cholecystectomy, Heart Catheterization With Stent, Orthopedic Surgery, Pacemaker Additional Past Surgical History / Comment(s): 2015 LUMBAR SURGERY, FX NOSE REPAIR, BILATERAL CATARACT SURGERY, R WRIST CARPAL TUNNEL SURGERY, kyphoplasty T8 ON 06/26/16 AND ONE BEFORE. Past Anesthesia/Blood Transfusion Reactions: No Reported Reaction Additional Past Anesthesia/Blood Transfusion Reaction / Comment(s): NEVER HAD A BLOOD TRANSFUSION. Past Psychological History: No Psychological Hx Reported Smoking Status: Never smoker Past Alcohol Use History: None Reported Past Drug Use History: None Reported - Past Family History Father Family Medical History: Myocardial Infarction ([place]) Additional Family Medical History / Comment(s): FATHER AT AGE 52 OF AN [place] Mother Additional Family Medical History / Comment(s): MOTHER AT AGE 89 OF CELEBREX PROBLEM. Medications and Allergies Home Medications Medication Instructions Recorded Confirmed Type glipiZIDE XL [Glucotrol XL] 5 mg PO DAILY 12/04/17 01/17/23 History amLODIPine [Norvasc] 5 mg PO DAILY 04/09/18 01/17/23 History sitaGLIPtin [Januvia] 100 mg PO DAILY 04/09/18 01/17/23 History Montelukast [Singulair] 10 mg PO DAILY 03/28/19 01/17/23 History Atorvastatin [Lipitor] 40 mg PO DAILY 04/09/19 01/17/23 History Metoprolol Succinate [Toprol XL] 50 mg PO DAILY 09/16/20 01/17/23 History Apixaban [Eliquis] 5 mg PO BID 09/04/22 01/17/23 History Gabapentin 300 mg PO BID 09/04/22 01/17/23 History HYDROcodone/APAP 7.5-325MG [[place] 1 tab PO BID PRN 09/04/22 01/17/23 History 7.5-325] Insulin Glargine,Hum.rec.anlog 10 units SQ DAILY 09/04/22 01/17/23 History [Lantus Solostar Pen] Furosemide [Lasix] 40 mg PO DAILY #30 tab 09/06/22 01/17/23 Rx hydrALAZINE HCL [Apresoline] 25 mg PO BID #60 tab 09/06/22 01/17/23 Rx Tolterodine Tartrate [Tolterodine 4 mg PO DAILY 10/16/22 01/17/23 History Tartrate ER] Albuterol Nebulized [Ventolin 2.5 mg INHALATION RT-QID 12/30/22 01/17/23 History Nebulized] Budesonide [Pulmicort] 0.5 mg INHALATION RT-BID 12/30/22 01/17/23 History Omeprazole 40 mg PO DAILY 12/30/22 01/17/23 History methocarbamoL [Robaxin] 500 mg PO Q6H PRN 12/30/22 01/17/23 History Clopidogrel [Plavix] 75 mg PO DAILY 30 Days #30 tab 01/05/23 01/17/23 Rx Losartan [Cozaar] 25 mg PO DAILY 30 Days #30 tab 01/05/23 01/17/23 Rx Benzonatate [Tessalon Perle] 200 mg PO TID PRN 01/13/23 01/17/23 History Ascorbic Acid [Vitamin C] 1,000 mg PO DAILY #60 tab 01/15/23 01/17/23 Rx Aspirin 325 mg PO DAILY #30 tab 01/15/23 01/17/23 Rx Nitroglycerin Sl Tabs [Nitrostat] 0.4 mg SUBLINGUAL Q5M PRN #20 tab 01/15/23 01/17/23 Rx Zinc Sulfate [Orazinc] 220 mg PO DAILY 14 Days #14 cap 01/15/23 01/17/23 Rx dexAMETHasone ORAL [Hexadrol] 6 mg PO DAILY 7 Days #21 tab 01/15/23 01/17/23 Rx Allergies Allergy/AdvReac Type Severity Reaction Status Date / Time tetracycline Allergy Unknown Verified 01/17/23 07:02 fentanyl AdvReac "IN Verified 01/17/23 07:02 ANOTHER PLANET, DIDNT KNOW WHERE SHE WAS" morphine AdvReac Nausea & Verified 01/17/23 07:02 Vomiting Physical Exam Vitals: Vital Signs Temp Pulse Resp BP Pulse Ox 01/17/23 08:13 94 L 01/17/23 07:58 97.8 F 63 18 130/52 93 L 01/17/23 06:00 98.6 F 65 18 117/61 97 01/17/23 04:36 64 18 121/54 97 01/17/23 04:17 97 01/17/23 04:08 98.3 F 73 20 114/49 92 L Intake and Output 01/16/23 01/17/23 01/17/23 22:59 06:59 14:59 Other: Weight 83.007 kg Results 01/17/23 05:27 01/17/23 05:27 Cardiac Enzymes 01/17/23 01/17/23 Range/Units 05:27 05:27 AST 31 (14-36) U/L Troponin I 0.040 H* (0.000-0.034) ng/mL Coagulation 01/17/23 Range/Units 06:34 PT 11.7 (9.0-12.0) sec APTT 45.3 H (22.0-30.0) sec CBC 01/17/23 Range/Units 05:27 WBC 12.9 H (3.8-10.6) k/uL RBC 3.37 L (3.80-5.40) m/uL Hgb 10.5 L (11.4-16.0) gm/dL Hct 31.6 L (34.0-46.0) % Plt Count 327 (150-450) k/uL Comprehensive Metabolic Panel 01/17/23 Range/Units 05:27 Sodium 135 L (137-145) mmol/L Potassium 4.0 (3.5-5.1) mmol/L Chloride 98 (98-107) mmol/L Carbon Dioxide 26 (22-30) mmol/L BUN 41 H (7-17) mg/dL Creatinine 1.22 H (0.52-1.04) mg/dL Glucose 300 H (74-99) mg/dL Calcium 8.6 (8.4-10.2) mg/dL AST 31 (14-36) U/L ALT 37 H (4-34) U/L Alkaline Phosphatase 124 (38-126) U/L Total Protein 6.5 (6.3-8.2) g/dL Albumin 3.8 (3.5-5.0) g/dL Current Medications Generic Name Dose Route Start Last Admin Trade Name Freq PRN Reason Stop Dose Admin Albuterol Sulfate 2 puff 01/17/23 08:00 01/17/23 08:10 Albuterol Hfa Inhaler INHALATION 2 puff RT-QID YOSSI Administration Naloxone HCl 0.2 mg 01/17/23 06:44 Naloxone 0.4 Mg/Ml 1 Ml Vial IV Q2M PRN Opioid Reversal Intake and Output 01/16/23 01/17/23 01/17/23 22:59 06:59 14:59 Other: Weight 83.007 kg 01/17/23 05:27 01/17/23 05:27
--- NOTE | 2023-01-17 13:40 | P.HPIM ---
History of Present Illness H&P Date: 01/17/23 history of present illness; Patient is a 82-year-old white female with past medical history significant for coronary artery disease status post stent to the LAD and pacemaker insertion earlier this month, atrial fibrillation, diabetes mellitus type 2, hyperlipidemia, hypertension, obesity, chronic back pain presented to the ER because of worsening shortness of breath. Patient was discharged yesterday after being treated for similar complaints.On last admission patient was treated for acute COVID-19 infection was discharged on dexamethasone along with vitamin and zinc on discharge. patient stated that as soon as she got home she started complaining of worsening shortness of breath. Denied any chest pain. Patient had hard time catching her breath.. Patient also felt very tired and let hargic. Because of this worsening shortness of breath patient came back to the ER initial lab work in the ER showed WBC 12.9, hemoglobin 10.5, sodium 139, potassium 4, BUN 41, creatinine 1.22, troponin 0.040 Patient was admitted to medicine service REVIEW OF SYSTEMS: CONSTITUTIONAL: No fever, no malaise, no fatigue. HEENT: No recent visual problems or hearing problems. Denied any sore throat. CARDIOVASCULAR: No chest pain, orthopnea, PND, no palpitations, no syncope. PULMONARY: As mentioned above GASTROINTESTINAL: No diarrhea, no nausea, no vomiting, no abdominal pain. NEUROLOGICAL: No headaches, no weakness, no numbness. HEMATOLOGICAL: Denies any bleeding or petechiae. GENITOURINARY: Denies any burning micturition, frequency, or urgency. MUSCULOSKELETAL/RHEUMATOLOGICAL: Complaining of back pain and muscle spasm ENDOCRINE: Denies any polyuria or polydipsia. The rest of the 14-point review of systems is negative. PHYSICAL EXAMINATION: GENERAL: The patient is alert and oriented x3, not in any acute distress. Well developed, well nourished. HEENT: Pupils are round and equally reacting to light. EOMI. No scleral icterus. No conjunctival pallor. Normocephalic, atraumatic. No pharyngeal erythema. No thyromegaly. CARDIOVASCULAR: S1 and S2 present. No murmurs, rubs, or gallops. PULMONARY: Chest is clear to auscultation, no wheezing or crackles. ABDOMEN: Soft, nontender, nondistended, normoactive bowel sounds. No palpable organomegaly. MUSCULOSKELETAL: No joint swelling or deformity. EXTREMITIES: No cyanosis, clubbing, or pedal edema. NEUROLOGICAL: Gross neurological examination did not reveal any focal deficits. SKIN: No rashes. Assessment and plan Acute hypoxemic respiratory failure COVID-19 infection Chronic lower back pain, the patient undergone previous kyphoplasty of the thoracic spine. Coronary artery disease, status post stent to the LAD and pacemaker insertion earlier this month Paroxysmal atrial fibrillation, anticoagulated on Eliquis, currently in normal sinus rhythm Diabetes mellitus type 2 Hyperlipidemia Essential hypertension Morbid obesity with a BMI of 50 plan; Monitor vital signs Monitor CBC Monitor CMP Continue telemetry monitoring Continue oxygen supplementation Aggressive bronchopulmonary hygiene COVID-19 isolation precautions trend troponins Continue Lasix 40 mg daily Continue breathing treatments Continue steroids Consult pulmonary consult cardiology Resume home meds Past Medical History Past Medical History: Atrial Fibrillation, Chest Pain / Angina, Diabetes Mellitus, Hyperlipidemia, Hypertension, Osteoarthritis (OA), Pneumonia Additional Past Medical History / Comment(s): Paroxysmal Afib, POST OP INFECTION AFTER BACK SURGERY, CHRONIC BACK PAIN FROM T8 FX, CHRONIC PERIPHERAL LEG EDEMA,R humerus fracture. History of Any Multi-Drug Resistant Organisms: None Reported Past Surgical History: Back Surgery, Cholecystectomy, Heart Catheterization With Stent, Orthopedic Surgery, Pacemaker Additional Past Surgical History / Comment(s): 2015 LUMBAR SURGERY, FX NOSE REPAIR, BILATERAL CATARACT SURGERY, R WRIST CARPAL TUNNEL SURGERY, kyphoplasty T8 ON 06/26/16 AND ONE BEFORE. Past Anesthesia/Blood Transfusion Reactions: No Reported Reaction Additional Past Anesthesia/Blood Transfusion Reaction / Comment(s): NEVER HAD A BLOOD TRANSFUSION. Past Psychological History: No Psychological Hx Reported Smoking Status: Never smoker Past Alcohol Use History: None Reported Past Drug Use History: None Reported - Past Family History Father Family Medical History: Myocardial Infarction ([place]) Additional Family Medical History / Comment(s): FATHER AT AGE 52 OF AN [place] Mother Additional Family Medical History / Comment(s): MOTHER AT AGE 89 OF CELEBREX PROBLEM. Medications and Allergies Home Medications Medication Instructions Recorded Confirmed Type glipiZIDE XL [Glucotrol XL] 5 mg PO DAILY 12/04/17 01/17/23 History amLODIPine [Norvasc] 5 mg PO DAILY 04/09/18 01/17/23 History sitaGLIPtin [Januvia] 100 mg PO DAILY 04/09/18 01/17/23 History Montelukast [Singulair] 10 mg PO DAILY 03/28/19 01/17/23 History Atorvastatin [Lipitor] 40 mg PO DAILY 04/09/19 01/17/23 History Metoprolol Succinate [Toprol XL] 50 mg PO DAILY 09/16/20 01/17/23 History Apixaban [Eliquis] 5 mg PO BID 09/04/22 01/17/23 History Gabapentin 300 mg PO BID 09/04/22 01/17/23 History HYDROcodone/APAP 7.5-325MG [[place] 1 tab PO BID PRN 09/04/22 01/17/23 History 7.5-325] Insulin Glargine,Hum.rec.anlog 10 units SQ DAILY 09/04/22 01/17/23 History [Lantus Solostar Pen] Furosemide [Lasix] 40 mg PO DAILY #30 tab 09/06/22 01/17/23 Rx hydrALAZINE HCL [Apresoline] 25 mg PO BID #60 tab 09/06/22 01/17/23 Rx Tolterodine Tartrate [Tolterodine 4 mg PO DAILY 10/16/22 01/17/23 History Tartrate ER] Albuterol Nebulized [Ventolin 2.5 mg INHALATION RT-QID 12/30/22 01/17/23 History Nebulized] Budesonide [Pulmicort] 0.5 mg INHALATION RT-BID 12/30/22 01/17/23 History Omeprazole 40 mg PO DAILY 12/30/22 01/17/23 History methocarbamoL [Robaxin] 500 mg PO Q6H PRN 12/30/22 01/17/23 History Clopidogrel [Plavix] 75 mg PO DAILY 30 Days #30 tab 01/05/23 01/17/23 Rx Losartan [Cozaar] 25 mg PO DAILY 30 Days #30 tab 01/05/23 01/17/23 Rx Benzonatate [Tessalon Perle] 200 mg PO TID PRN 01/13/23 01/17/23 History Ascorbic Acid [Vitamin C] 1,000 mg PO DAILY #60 tab 01/15/23 01/17/23 Rx Aspirin 325 mg PO DAILY #30 tab 01/15/23 01/17/23 Rx Nitroglycerin Sl Tabs [Nitrostat] 0.4 mg SUBLINGUAL Q5M PRN #20 tab 01/15/23 01/17/23 Rx Zinc Sulfate [Orazinc] 220 mg PO DAILY 14 Days #14 cap 01/15/23 01/17/23 Rx dexAMETHasone ORAL [Hexadrol] 6 mg PO DAILY 7 Days #21 tab 01/15/23 01/17/23 Rx Allergies Allergy/AdvReac Type Severity Reaction Status Date / Time tetracycline Allergy Unknown Verified 01/17/23 07:02 fentanyl AdvReac "IN Verified 01/17/23 07:02 ANOTHER PLANET, DIDNT KNOW WHERE SHE WAS" morphine AdvReac Nausea & Verified 01/17/23 07:02 Vomiting Physical Exam Vitals: Vital Signs Temp Pulse Resp BP Pulse Ox 01/17/23 08:13 94 L 01/17/23 07:58 97.8 F 63 18 130/52 93 L 01/17/23 06:00 98.6 F 65 18 117/61 97 01/17/23 04:36 64 18 121/54 97 01/17/23 04:17 97 01/17/23 04:08 98.3 F 73 20 114/49 92 L Intake and Output 01/16/23 01/17/23 01/17/23 22:59 06:59 14:59 Other: Weight 83.007 kg Results CBC & Chem 7: 01/17/23 05:27 01/17/23 05:27 Labs: Abnormal Lab Results - Last 24 Hours (Table) 01/17/23 01/17/23 01/17/23 Range/Units 05:27 05:27 05:27 WBC 12.9 H (3.8-10.6) k/uL RBC 3.37 L (3.80-5.40) m/uL Hgb 10.5 L (11.4-16.0) gm/dL Hct 31.6 L (34.0-46.0) % Neutrophils # 11.9 H (1.3-7.7) k/uL Lymphocytes # 0.4 L (1.0-4.8) k/uL APTT (22.0-30.0) sec Sodium 135 L (137-145) mmol/L BUN 41 H (7-17) mg/dL Creatinine 1.22 H (0.52-1.04) mg/dL Glucose 300 H (74-99) mg/dL Plasma Lactic Acid Gary 3.0 H* (0.7-2.0) mmol/L ALT 37 H (4-34) U/L Troponin I (0.000-0.034) ng/mL Coronavirus (PCR) (Not Detectd) 01/17/23 01/17/23 01/17/23 Range/Units 05:27 05:44 06:34 WBC (3.8-10.6) k/uL RBC (3.80-5.40) m/uL Hgb (11.4-16.0) gm/dL Hct (34.0-46.0) % Neutrophils # (1.3-7.7) k/uL Lymphocytes # (1.0-4.8) k/uL APTT 45.3 H (22.0-30.0) sec Sodium (137-145) mmol/L BUN (7-17) mg/dL Creatinine (0.52-1.04) mg/dL Glucose (74-99) mg/dL Plasma Lactic Acid Gary (0.7-2.0) mmol/L ALT (4-34) U/L Troponin I 0.040 H* (0.000-0.034) ng/mL Coronavirus (PCR) Detected A (Not Detectd)
--- NOTE | 2023-01-17 14:52 | P.CNPUL ---
History of Present Illness Consult date: 01/17/23 Reason for consult: dyspnea History of present illness: 82-year-old female patient, known history of multiple medical problems and comorbidities and was discharged and she was readmitted within 24 hours because of ongoing shortness of breath and a component of CHF. She is known to have CAD, nonobstructive disease, in addition to hypertension, hyperlipidemia, sick sinus syndrome and the patient a dual-chamber pacemaker insertion on 12/30/2022 and the patient has proximal A. fib and she has undergone cardioversion in the past. The patient was recently hospitalized for Covid 19 infection and she was treated with steroids and she was discharged home. During her hospitalization, the patient underwent a CT angiogram that showed no evidence of pulmonary embolism. The patient was found to have trace bilateral pleural effusion and pulmonary vascular congestion and a moderate-sized hiatal hernia. There was also evidence of multilevel degenerative vertebral changes with previous vertebroplasty. Note that her proBNP level remains elevated due to her CHF. This patient is nonvaccinated for Covid 19 and she has received original total dose of [employer] vaccination and booster immunization. During this current admission, the response of 12.9 with a hemoglobin 10.5. The BUN is 41 with a creatinine of 1.2 and a sodium level of 135 with a potassium level of 4. Lactic acid level was at the drop down to 1.7. Still positive for Covid 19. ProBNP level is 2280, troponin is at 0.04 and a chest x-ray is consistent with cardiomegaly and CHF. The patient is currently on aspirin and Plavix and anticoagulation with Eliquis 5 mg by mouth twice a day. The patient is also on IV Solu-Medrol 40 mg by mouth 8 hours and Lasix 40 mg by mouth on a daily basis. She is receiving albuterol in the form of Ventolin [id number]. Review of Systems CONSTITUTIONAL: Denies any recent significant weight loss or weight gain. EYES: Denies change in vision. EARS, NOSE, MOUTH, THROAT: Denies headaches, denies sore throat. CARDIOVASCULAR: See HPI RESPIRATORY: See HPI GASTROINTESTINAL: Denies change in appetite, abdominal pain, nausea and vomiting, or diarrhea GENITOURINARY: Denies hematuria, denies infections. MUSKULOSKELETAL: Denies pain, denies swelling. INTEGUMENTARY: Denies rash, denies eczema. NEUROLOGICAL: Denies recent memory loss, no recent seizure activity. PSYCHIATRIC: Denies anxiety, denies depression. HEMATOLOGIC/LYMPHATIC: Denies anemia, denies enlarged lymph node Past Medical History Past Medical History: Atrial Fibrillation, Chest Pain / Angina, Diabetes Mellitus, Hyperlipidemia, Hypertension, Osteoarthritis (OA), Pneumonia Additional Past Medical History / Comment(s): Paroxysmal Afib, POST OP INFECTION AFTER BACK SURGERY, CHRONIC BACK PAIN FROM T8 FX, CHRONIC PERIPHERAL LEG EDEMA,R humerus fracture. History of Any Multi-Drug Resistant Organisms: None Reported Past Surgical History: Back Surgery, Cholecystectomy, Heart Catheterization With Stent, Orthopedic Surgery, Pacemaker Additional Past Surgical History / Comment(s): 2015 LUMBAR SURGERY, FX NOSE REPAIR, BILATERAL CATARACT SURGERY, R WRIST CARPAL TUNNEL SURGERY, kyphoplasty T8 ON 06/26/16 AND ONE BEFORE. Past Anesthesia/Blood Transfusion Reactions: No Reported Reaction Additional Past Anesthesia/Blood Transfusion Reaction / Comment(s): NEVER HAD A BLOOD TRANSFUSION. Date of Last Stent Placement:: 01/01/23 Type of Cardiac Device: Permanent Pacemaker Device Placement Date:: 12/30/22 Past Psychological History: No Psychological Hx Reported Smoking Status: Never smoker Past Alcohol Use History: None Reported Past Drug Use History: None Reported - Past Family History Father Family Medical History: Myocardial Infarction (ME) Additional Family Medical History / Comment(s): FATHER AT AGE 52 OF AN ME Mother Additional Family Medical History / Comment(s): MOTHER AT AGE 89 OF CELEBREX PROBLEM. Medications and Allergies Home Medications Medication Instructions Recorded Confirmed Type glipiZIDE XL [Glucotrol XL] 5 mg PO DAILY 12/04/17 01/17/23 History amLODIPine [Norvasc] 5 mg PO DAILY 04/09/18 01/17/23 History sitaGLIPtin [Januvia] 100 mg PO DAILY 04/09/18 01/17/23 History Montelukast [Singulair] 10 mg PO DAILY 03/28/19 01/17/23 History Atorvastatin [Lipitor] 40 mg PO DAILY 04/09/19 01/17/23 History Metoprolol Succinate [Toprol XL] 50 mg PO DAILY 09/16/20 01/17/23 History Apixaban [Eliquis] 5 mg PO BID 09/04/22 01/17/23 History Gabapentin 300 mg PO BID 09/04/22 01/17/23 History HYDROcodone/APAP 7.5-325MG [[place] 1 tab PO BID PRN 09/04/22 01/17/23 History 7.5-325] Insulin Glargine,Hum.rec.anlog 10 units SQ DAILY 09/04/22 01/17/23 History [Lantus Solostar Pen] Furosemide [Lasix] 40 mg PO DAILY #30 tab 09/06/22 01/17/23 Rx hydrALAZINE HCL [Apresoline] 25 mg PO BID #60 tab 09/06/22 01/17/23 Rx Tolterodine Tartrate [Tolterodine 4 mg PO DAILY 10/16/22 01/17/23 History Tartrate ER] Albuterol Nebulized [Ventolin 2.5 mg INHALATION RT-QID 12/30/22 01/17/23 History Nebulized] Budesonide [Pulmicort] 0.5 mg INHALATION RT-BID 12/30/22 01/17/23 History Omeprazole 40 mg PO DAILY 12/30/22 01/17/23 History methocarbamoL [Robaxin] 500 mg PO Q6H PRN 12/30/22 01/17/23 History Clopidogrel [Plavix] 75 mg PO DAILY 30 Days #30 tab 01/05/23 01/17/23 Rx Losartan [Cozaar] 25 mg PO DAILY 30 Days #30 tab 01/05/23 01/17/23 Rx Benzonatate [Tessalon Perle] 200 mg PO TID PRN 01/13/23 01/17/23 History Ascorbic Acid [Vitamin C] 1,000 mg PO DAILY #60 tab 01/15/23 01/17/23 Rx Aspirin 325 mg PO DAILY #30 tab 01/15/23 01/17/23 Rx Nitroglycerin Sl Tabs [Nitrostat] 0.4 mg SUBLINGUAL Q5M PRN #20 tab 01/15/23 01/17/23 Rx Zinc Sulfate [Orazinc] 220 mg PO DAILY 14 Days #14 cap 01/15/23 01/17/23 Rx dexAMETHasone ORAL [Hexadrol] 6 mg PO DAILY 7 Days #21 tab 01/15/23 01/17/23 Rx Allergies Allergy/AdvReac Type Severity Reaction Status Date / Time tetracycline Allergy Unknown Verified 01/17/23 07:02 fentanyl AdvReac "IN Verified 01/17/23 07:02 ANOTHER PLANET, DIDNT KNOW WHERE SHE WAS" morphine AdvReac Nausea & Verified 01/17/23 07:02 Vomiting Physical Exam Vitals: Vital Signs Temp Pulse Pulse Resp BP BP Pulse Ox 01/17/23 12:00 97.4 F L 70 18 135/74 91 L 01/17/23 09:40 98 F 63 18 128/73 91 L 01/17/23 08:13 94 L 01/17/23 07:58 97.8 F 63 18 130/52 93 L 01/17/23 06:00 98.6 F 65 18 117/61 97 01/17/23 04:36 64 18 121/54 97 01/17/23 04:17 97 01/17/23 04:08 98.3 F 73 20 114/49 92 L Intake and Output 01/16/23 01/17/23 01/17/23 22:59 06:59 14:59 Other: Weight 83.007 kg 83.007 kg GENERAL EXAM: Alert, 82-year-old white female, fairly comfortable. Breathing is nonlabored and the patient is currently on 3 L O2 nasal cannula HEAD: Normocephalic and atraumatic EYES: Normal reaction of pupils, equal size. NOSE: Clear with pink turbinates. THROAT: No erythema or exudates. NECK: No masses, no JVD. CHEST: No chest wall deformity. LUNGS: Equal air entry with scattered. No wheezes, crackles, or dullness. No conversational dyspnea or accessory muscle use.. CVS: S1 and S2 normal with no audible murmur, regular rhythm. No extra heart sounds ABDOMEN: Obese abdomen. No hepatosplenomegaly, active bowel sounds, no guarding or rigidity. SPINE: No scoliosis or deformity SKIN: No rashes CENTRAL NERVOUS SYSTEM: No focal deficits, tone is normal in all 4 extremities. EXTREMITIES: There is no peripheral edema, clubbing, or cyanosis. Peripheral pulses are intact. Results - Laboratory Findings CBC and BMP: 01/17/23 05:27 01/17/23 05:27 PT/INR, D-dimer PT 11.7 sec (9.0-12.0) 01/17/23 06:34 INR 1.1 (<1.2) 01/17/23 06:34 Abnormal lab findings: Abnormal Labs 01/17/23 01/17/23 01/17/23 05:27 05:27 05:27 WBC 12.9 H RBC 3.37 L Hgb 10.5 L Hct 31.6 L Neutrophils # 11.9 H Lymphocytes # 0.4 L APTT Sodium 135 L BUN 41 H Creatinine 1.22 H Glucose 300 H Plasma Lactic Acid Gary 3.0 H* ALT 37 H Troponin I Coronavirus (PCR) 01/17/23 01/17/23 01/17/23 05:27 05:44 06:34 WBC RBC Hgb Hct Neutrophils # Lymphocytes # APTT 45.3 H Sodium BUN Creatinine Glucose Plasma Lactic Acid Gary ALT Troponin I 0.040 H* Coronavirus (PCR) Detected A - Diagnostic Findings Chest x-ray: image reviewed Assessment and Plan Plan: Acute hypoxemic respiratory failure, essentially related to CHF, could be exa cerbated by her recent Covid 19 infection. Treated, discharged to be readmitted for the same with an elevated proBNP level. Still positive for Covid 19. No evidence of any Covid 19 pneumonia based on an earlier CAT scan of the chest and the base and the follow-up chest x-ray. Chronic lower back pain, the patient undergone previous kyphoplasty of the thoracic spine. Coronary artery disease, status post stent to the LAD and pacemaker insertion earlier this month, the patient has undergone PCI of the mid LAD Paroxysmal atrial fibrillation, anticoagulated on Eliquis, currently in normal sinus rhythm Diabetes mellitus type 2 Hyperlipidemia Essential hypertension Obesity with a BMI of 31 History of sick sinus syndrome, and the patient has a dual-chamber pacemaker insertion Plan The patient may benefit from IV Lasix and I would recommend 40 mg every 12 hours. Switch this patient to Decadron 6 mg by mouth daily Continue anticoagulation with Eliquis Continue all medication will continue to follow. All medications have been resumed for now.
[2023-01-17] MEDS ORDERED: methylPREDNISolone SOD SUCCI 40 MG/ML 1 ML VIAL IV SCH (16:00)
[2023-01-17] MEDS: DEXAMETHASONE SOD PHOSPHATE 10 MG/ML 1 ML VIAL IVP SCH (16:34)
[2023-01-17] MEDS: HYDROcodone/APAP 7.5-325MG 1 EACH TAB PO PRN ×2 (16:35→21:42)
[2023-01-17] MEDS: GABAPENTIN 300 MG CAP PO SCH (19:57)
[2023-01-17] MEDS: FUROSEMIDE 10 MG/ML 4 ML VIAL IV SCH (19:57)
[2023-01-17] MEDS: guaiFENesin 600 MG TABLET.ER PO SCH (19:57)
[2023-01-17] MEDS: APIXABAN 5 MG TAB PO SCH (19:57)
[2023-01-17] MEDS: hydrALAZINE HCL 25 MG TAB PO SCH (19:57)
[2023-01-17] MEDS ORDERED: BUDESONIDE 0.5 MG/2 ML NEBU INHALATION SCH (20:00)
[2023-01-17] MEDS: FLUTICASONE 110 MCG INHALER INHALATION SCH (21:36)
[2023-01-18] MEDS: methocarbamoL 500 MG TAB PO PRN ×3 (01:07→21:51)
[2023-01-18] MEDS: HYDROcodone/APAP 7.5-325MG 1 EACH TAB PO PRN ×4 (02:42→17:42)
[2023-01-18 05:48] LABS: Glucose,Whole Blood 302 mg/dL (70-110)
[2023-01-18] MEDS ORDERED: DEXTROSE 50% SYRINGE 50 ML IVP PRN ×2 (06:13)
[2023-01-18] MEDS: INSULIN DETEMIR (LEVEMIR) 100 UNIT/ML SYR SQ SCH (06:41)
[2023-01-18] MEDS: INSULIN ASPART (NovoLOG) 100 UNIT/ML VIAL SQ SCH ×4 (06:41→22:05)
[2023-01-18] MEDS: PANTOPRAZOLE 40 MG TABLET PO SCH (06:41)
[2023-01-18] MEDS: ATORVASTATIN 40 MG TAB PO SCH (07:59)
[2023-01-18] MEDS: METOPROLOL SUCCINATE (ER) 50 MG TAB.ER.24H PO SCH (08:00)
[2023-01-18] MEDS: ASCORBIC ACID 500 MG TAB PO SCH (08:00)
[2023-01-18] MEDS: GABAPENTIN 300 MG CAP PO SCH ×2 (08:00→21:50)
[2023-01-18] MEDS: OXYBUTYNIN 10 MG TAB.ER.24 PO SCH (08:00)
[2023-01-18] MEDS: guaiFENesin 600 MG TABLET.ER PO SCH ×2 (08:00→21:51)
[2023-01-18] MEDS: amLODIPine 5 MG TAB PO SCH (08:00)
[2023-01-18] MEDS: APIXABAN 5 MG TAB PO SCH ×2 (08:00→21:51)
[2023-01-18] MEDS: CLOPIDOGREL 75 MG TAB PO SCH (08:00)
[2023-01-18] MEDS: hydrALAZINE HCL 25 MG TAB PO SCH ×2 (08:00→21:51)
[2023-01-18] MEDS: DEXAMETHASONE SOD PHOSPHATE 10 MG/ML 1 ML VIAL IVP SCH (08:00)
[2023-01-18] MEDS: MONTELUKAST 10 MG TAB PO SCH (08:00)
[2023-01-18] MEDS: ASPIRIN 325 MG TAB PO SCH (08:00)
[2023-01-18] MEDS: FUROSEMIDE 10 MG/ML 4 ML VIAL IV SCH ×2 (08:00→21:51)
[2023-01-18] MEDS: ZINC SULFATE 220 MG CAP PO SCH (08:00)
[2023-01-18] MEDS: ALBUTEROL HFA INHALER INHALATION SCH ×4 (08:34→21:02)
[2023-01-18] MEDS: FLUTICASONE 110 MCG INHALER INHALATION SCH ×2 (08:34→21:03)
[2023-01-18] MEDS ORDERED: FUROSEMIDE 40 MG TAB PO SCH (09:00)
[2023-01-18 10:02] LABS: Basophils % (A) 0 %; Eosinophils % (A) 0 %; HCT 35.6 % (34.0-46.0); HGB 11.7 gm/dL (11.4-16.0); Lymphocytes # (A) 0.5 k/uL (1.0-4.8); Lymphocytes % (A) 5 %; MCH 31.1 pg (25.0-35.0); MCHC 32.7 g/dL (31.0-37.0); MCV 95.2 fL (80.0-100.0); Mean Platelet Volume 7.8; Monocytes # (A) 0.5 k/uL (0-1.0); Monocytes % (A) 5 %; Neutrophils # (A) 9.7 k/uL (1.3-7.7); Neutrophils % (A) 89 %; Platelet Count 369 k/uL (150-450); RBC 3.74 m/uL (3.80-5.40); RDW 13.5 % (11.5-15.5); WBC 10.9 k/uL (3.8-10.6)
[2023-01-18 10:10] LABS: African American GFR (CKD) 55 (>60 ml/min/1.73 sqM); Anion Gap 6 mmol/L; Blood Urea Nitrogen 35 mg/dL (7-17); Calcium 9.1 mg/dL (8.4-10.2); Carbon Dioxide 36 mmol/L (22-30); Chloride 96 mmol/L (98-107); Glucose 119 mg/dL (74-99); Non-African American GFR(CKD) 48 (>60 ml/min/1.73 sqM); Sodium 138 mmol/L (137-145)
--- NOTE | 2023-01-18 12:04 | P.PN ---
Subjective Progress Note Date: 01/18/23 The patient is an 82-year-old female who's had multiple admissions this month for increasing shortness of breath. The patient is found to be Covid positive. Cardiology has been consulted for congestive heart failure. BNP 2200 on arrival. The patient was interviewed. She states her breathing is unchanged overnight. She still has a congested cough and chronic back pain. No chest pain or chest pressure. She is breathing well and the supine position TELEMETRY: Sinus rhythm. No arrhythmias. LABS: WBC 10.9, hemoglobin 11.7, hematocrit 35.6, platelets 369, sodium 138, potassium 4.0, BUN 35, creatinine 1.10 IMPRESSION: Shortness of breath, multifactoral Covid 19 pneumonia Heart failure exacerbation, preserved LV function Coronary artery disease, multivessel Sick sinus syndrome, s/p PPM Paroxysmal atrial fibrillation PLAN: Continue diuresis Continue to monitor I&O's No further recommendations from the cardiac standpoint I am dictating on behalf of Dr Carlos Lee's history/physical and assessment/plan. Objective - Vital Signs Vital signs: Vital Signs Temp 97.9 F 01/18/23 08:00 Pulse 68 01/18/23 08:00 Resp 20 01/18/23 08:00 BP 143/72 01/18/23 08:00 Pulse Ox 95 01/18/23 08:37 FiO2 Intake & Output 01/17/23 01/18/23 01/18/23 18:59 06:59 18:59 Intake Total 128 Output Total 200 150 550 Balance -200 -150 -422 Weight 83.007 kg Intake: IV 10 Invasive Line 1 10 Oral 118 Output: Urine 200 150 550 Other: # Voids 1 - Labs CBC & Chem 7: 01/18/23 09:07 01/18/23 09:07 Labs: Abnormal Lab Results - Last 24 Hours (Table) 01/18/23 01/18/23 01/18/23 Range/Units 05:45 09:07 09:07 WBC 10.9 H (3.8-10.6) k/uL RBC 3.74 L (3.80-5.40) m/uL Neutrophils # 9.7 H (1.3-7.7) k/uL Lymphocytes # 0.5 L (1.0-4.8) k/uL Chloride 96 L (98-107) mmol/L Carbon Dioxide 36 H (22-30) mmol/L BUN 35 H (7-17) mg/dL Creatinine 1.10 H (0.52-1.04) mg/dL Glucose 119 H (74-99) mg/dL POC Glucose (mg/dL) 302 H (70-110) mg/dL
[2023-01-18 12:16] LABS: Glucose,Whole Blood 313 mg/dL (70-110)
--- NOTE | 2023-01-18 13:43 | P.PN ---
Subjective Progress Note Date: 01/18/23 82-year-old female patient, known history of multiple medical problems and comorbidities and was discharged and she was readmitted within 24 hours because of ongoing shortness of breath and a component of CHF. She is known to have CAD, nonobstructive disease, in addition to hypertension, hyperlipidemia, sick sinus syndrome and the patient a dual-chamber pacemaker insertion on 12/30/2022 and the patient has proximal A. fib and she has undergone cardioversion in the past. The patient was recently hospitalized for Covid 19 infection and she was treated with steroids and she was discharged home. During her hospitalization, the patient underwent a CT angiogram that showed no evidence of pulmonary e mbolism. The patient was found to have trace bilateral pleural effusion and pulmonary vascular congestion and a moderate-sized hiatal hernia. There was also evidence of multilevel degenerative vertebral changes with previous vertebroplasty. Note that her proBNP level remains elevated due to her CHF. This patient is nonvaccinated for Covid 19 and she has received original total dose of [employer] vaccination and booster immunization. During this current admission, the response of 12.9 with a hemoglobin 10.5. The BUN is 41 with a creatinine of 1.2 and a sodium level of 135 with a potassium level of 4. Lactic acid level was at the drop down to 1.7. Still positive for Covid 19. ProBNP level is 2280, troponin is at 0.04 and a chest x-ray is consistent with cardiomegaly and CHF. The patient is currently on aspirin and Plavix and anticoagulation with Eliquis 5 mg by mouth twice a day. The patient is also on IV Solu-Medrol 40 mg by mouth 8 hours and Lasix 40 mg by mouth on a daily basis. She is receiving albuterol in the form of Ventolin [id number]. On 01/18/2023, the patient's Restasis as is stable. The patient is complaining of cramping in her muscles in the lower extremities and arms. She is currently on Robaxin and [place]. She is also on diuretics with IV Lasix. The patient is also on Decadron regarding her Covid 19 infection. She has limited on long-term anticoagulation. There was another 3.6 with a hemoglobin of 11 and the BUN is 19 with a creatinine of 0.8 and sodium levels of 134. The patient remains on 3 L of oxygen by nasal cannula. The patient is hemodynamically stable at this point in time. Objective - Vital Signs Vital signs: Vital Signs Temp 97.9 F 01/18/23 08:00 Pulse 68 01/18/23 08:00 Resp 20 01/18/23 08:00 BP 143/72 01/18/23 08:00 Pulse Ox 95 01/18/23 08:37 FiO2 Intake & Output 01/17/23 01/18/23 01/18/23 18:59 06:59 18:59 Intake Total 128 Output Total 200 150 550 Balance -200 -150 -422 Weight 83.007 kg Intake: IV 10 Invasive Line 1 10 Oral 118 Output: Urine 200 150 550 Other: # Voids 1 - Exam GENERAL EXAM: Alert, 82-year-old white female, fairly comfortable. Breathing is nonlabored and the patient is currently on 3 L O2 nasal cannula HEAD: Normocephalic and atraumatic EYES: Normal reaction of pupils, equal size. NOSE: Clear with pink turbinates. THROAT: No erythema or exudates. NECK: No masses, no JVD. CHEST: No chest wall deformity. LUNGS: Equal air entry with scattered. No wheezes, crackles, or dullness. No conversational dyspnea or accessory muscle use.. CVS: S1 and S2 normal with no audible murmur, regular rhythm. No extra heart sounds ABDOMEN: Obese abdomen. No hepatosplenomegaly, active bowel sounds, no guarding or rigidity. SPINE: No scoliosis or deformity SKIN: No rashes CENTRAL NERVOUS SYSTEM: No focal deficits, tone is normal in all 4 extremities. EXTREMITIES: There is no peripheral edema, clubbing, or cyanosis. Peripheral pulses are intact. - Labs CBC & Chem 7: 01/18/23 09:07 01/18/23 09:07 Labs: Abnormal Lab Results - Last 24 Hours (Table) 01/18/23 01/18/23 01/18/23 Range/Units 05:45 09:07 09:07 WBC 10.9 H (3.8-10.6) k/uL RBC 3.74 L (3.80-5.40) m/uL Neutrophils # 9.7 H (1.3-7.7) k/uL Lymphocytes # 0.5 L (1.0-4.8) k/uL Chloride 96 L (98-107) mmol/L Carbon Dioxide 36 H (22-30) mmol/L BUN 35 H (7-17) mg/dL Creatinine 1.10 H (0.52-1.04) mg/dL Glucose 119 H (74-99) mg/dL POC Glucose (mg/dL) 302 H (70-110) mg/dL Assessment and Plan Plan: Acute hypoxemic respiratory failure, essentially related to CHF, could be exacerbated by her recent Covid 19 infection. Treated, discharged to be readmitted for the same with an elevated proBNP level. Still positive for Covid 19. No evidence of any Covid 19 pneumonia based on an earlier CAT scan of the chest and the base and the follow-up chest x-ray. Chronic lower back pain, the patient undergone previous kyphoplasty of the thoracic spine. Coronary artery disease, status post stent to the LAD and pacemaker insertion earlier this month, the patient has undergone PCI of the mid LAD Paroxysmal atrial fibrillation, anticoagulated on Eliquis, currently in normal sinus rhythm Diabetes mellitus type 2 Hyperlipidemia Essential hypertension Obesity with a BMI of 31 History of sick sinus syndrome, and the patient has a dual-chamber pacemaker ins ertion Plan Continue same treatment Continue [place] and Robaxin for muscle cramps Continue IV Lasix and I would recommend 40 mg every 12 hours. Switch this patient to Decadron 6 mg by mouth daily Continue anticoagulation with xarelto Continue all medication will continue to follow.
--- NOTE | 2023-01-18 14:56 | P.PN ---
Subjective Progress Note Date: 01/18/23 Patient is a 82-year-old white female with past medical history significant for coronary artery disease status post stent to the LAD and pacemaker insertion earlier this month, atrial fibrillation, diabetes mellitus type 2, hyperlipidemia, hypertension, obesity, chronic back pain presented to the ER because of worsening shortness of breath. Patient was discharged yesterday after being treated for similar complaints.On last admission patient was treated for acute COVID-19 infection was discharged on dexamethasone along with vitamin and zinc on discharge. patient stated that as soon as she got home she started complaining of worsening shortness of breath. Denied any chest pain. Patient had hard time catching her breath.. Patient also felt very tired and lethargic. Because of this worsening shortness of breath patient came back to the ER initial lab work in the ER showed WBC 12.9, hemoglobin 10.5, sodium 139, potassium 4, BUN 41, creatinine 1.22, troponin 0.040 Patient was admitted to medicine service 01/18. Patient seen and examined. States shortness of breath is improved. Patient is focused on her back pain states pain medications are not working REVIEW OF SYSTEMS: CONSTITUTIONAL: No fever, no malaise,. CARDIOVASCULAR: No chest pain, no palpitations, no syncope. PULMONARY: No shortness of breath, no cough, GASTROINTESTINAL: No diarrhea, no nausea, no vomiting, no abdominal pain. NEUROLOGICAL: No headaches, no weakness, PHYSICAL EXAMINATION: GENERAL: The patient is alert and oriented x3, not in any acute distress. Well developed, well nourished. HEENT: Pupils are round and equally reacting to light. EOMI. No scleral icterus. No conjunctival pallor. Normocephalic, atraumatic. No pharyngeal erythema. No thyromegaly. CARDIOVASCULAR: S1 and S2 present. No murmurs, rubs, or gallops. PULMONARY: Coarse breath sounds bilaterally, no expiratory wheeze audible ABDOMEN: Soft, nontender, nondistended, normoactive bowel sounds. No palpable or ganomegaly. MUSCULOSKELETAL: No joint swelling or deformity. EXTREMITIES: No cyanosis, clubbing, or pedal edema. NEUROLOGICAL: Gross neurological examination did not reveal any focal deficits. SKIN: No rashes. Assessment and plan Acute hypoxemic respiratory failure COVID-19 infection Chronic lower back pain, the patient undergone previous kyphoplasty of the thoracic spine. Coronary artery disease, status post stent to the LAD and pacemaker insertion earlier this month Paroxysmal atrial fibrillation, anticoagulated on Eliquis, currently in normal sinus rhythm Diabetes mellitus type 2 Hyperlipidemia Essential hypertension Morbid obesity with a BMI of 50 Monitor vital signs Monitor CBC Monitor CMP Continue telemetry monitoring Strict I's and O's, daily weights Continue IV Lasix 40 mg every 12 Continue Decadron 6 mg daily Continue breathing treatment follow-up on pulmonary recommendations Follow-up on cardiology recommendations Objective - Vital Signs Vital signs: Vital Signs Temp 97.9 F 01/18/23 08:00 Pulse 68 01/18/23 08:00 Resp 20 01/18/23 08:00 BP 143/72 01/18/23 08:00 Pulse Ox 95 01/18/23 08:37 FiO2 Intake & Output 01/17/23 01/18/23 01/18/23 18:59 06:59 18:59 Intake Total 128 Output Total 200 150 550 Balance -200 -150 -422 Weight 83.007 kg Intake: IV 10 Invasive Line 1 10 Oral 118 Output: Urine 200 150 550 Other: # Voids 1 - Labs CBC & Chem 7: 01/18/23 09:07 01/18/23 09:07 Labs: Abnormal Lab Results - Last 24 Hours (Table) 01/18/23 01/18/23 01/18/23 Range/Units 05:45 09:07 09:07 WBC 10.9 H (3.8-10.6) k/uL RBC 3.74 L (3.80-5.40) m/uL Neutrophils # 9.7 H (1.3-7.7) k/uL Lymphocytes # 0.5 L (1.0-4.8) k/uL Chloride 96 L (98-107) mmol/L Carbon Dioxide 36 H (22-30) mmol/L BUN 35 H (7-17) mg/dL Creatinine 1.10 H (0.52-1.04) mg/dL Glucose 119 H (74-99) mg/dL POC Glucose (mg/dL) 302 H (70-110) mg/dL 01/18/23 Range/Units 12:14 WBC (3.8-10.6) k/uL RBC (3.80-5.40) m/uL Neutrophils # (1.3-7.7) k/uL Lymphocytes # (1.0-4.8) k/uL Chloride (98-107) mmol/L Carbon Dioxide (22-30) mmol/L BUN (7-17) mg/dL Creatinine (0.52-1.04) mg/dL Glucose (74-99) mg/dL POC Glucose (mg/dL) 313 H (70-110) mg/dL
[2023-01-18 16:53] LABS: Glucose,Whole Blood 299 mg/dL (70-110)
[2023-01-18 20:42] LABS: Glucose,Whole Blood 314 mg/dL (70-110)
[2023-01-19] MEDS: HYDROcodone/APAP 7.5-325MG 1 EACH TAB PO PRN ×3 (01:58→16:55)
[2023-01-19 05:52] LABS: Glucose,Whole Blood 93 mg/dL (70-110)
[2023-01-19] MEDS: INSULIN ASPART (NovoLOG) 100 UNIT/ML VIAL SQ SCH ×4 (06:12→21:49)
[2023-01-19] MEDS: PANTOPRAZOLE 40 MG TABLET PO SCH (06:14)
[2023-01-19] MEDS: INSULIN DETEMIR (LEVEMIR) 100 UNIT/ML SYR SQ SCH (06:14)
[2023-01-19] MEDS: ALBUTEROL HFA INHALER INHALATION SCH ×4 (07:51→20:01)
[2023-01-19] MEDS: FLUTICASONE 110 MCG INHALER INHALATION SCH ×2 (07:51→20:01)
[2023-01-19 08:20] LABS: Hypochromasia Slight; MCH 31.3 pg (25.0-35.0); MCHC 32.5 g/dL (31.0-37.0); MCV 96.4 fL (80.0-100.0); Mean Platelet Volume 8.1; Platelet Count 350 k/uL (150-450); RBC 3.84 m/uL (3.80-5.40); RDW 13.5 % (11.5-15.5); WBC 11.3 k/uL (3.8-10.6)
[2023-01-19 08:42] LABS: ALT 40 U/L (4-34); African American GFR (CKD) 57 (>60 ml/min/1.73 sqM); Albumin 3.8 g/dL (3.5-5.0); Anion Gap 8 mmol/L; Blood Urea Nitrogen 38 mg/dL (7-17); Calcium 8.7 mg/dL (8.4-10.2); Carbon Dioxide 32 mmol/L (22-30); Chloride 96 mmol/L (98-107); Glucose 96 mg/dL (74-99); Non-African American GFR(CKD) 49 (>60 ml/min/1.73 sqM); Sodium 136 mmol/L (137-145); Total Bilirubin 0.9 mg/dL (0.2-1.3); Total Protein 6.6 g/dL (6.3-8.2)
[2023-01-19 08:46] LABS: AST 40 U/L (14-36); Alkaline Phosphatase 111 U/L (38-126)
[2023-01-19] MEDS: ZINC SULFATE 220 MG CAP PO SCH (09:15)
[2023-01-19] MEDS: APIXABAN 5 MG TAB PO SCH ×2 (09:15→21:49)
[2023-01-19] MEDS: GABAPENTIN 300 MG CAP PO SCH ×2 (09:15→21:50)
[2023-01-19] MEDS: guaiFENesin 600 MG TABLET.ER PO SCH ×2 (09:15→21:49)
[2023-01-19] MEDS: CLOPIDOGREL 75 MG TAB PO SCH (09:15)
[2023-01-19] MEDS: METOPROLOL SUCCINATE (ER) 50 MG TAB.ER.24H PO SCH (09:15)
[2023-01-19] MEDS: ATORVASTATIN 40 MG TAB PO SCH (09:15)
[2023-01-19] MEDS: hydrALAZINE HCL 25 MG TAB PO SCH ×2 (09:16→21:50)
[2023-01-19] MEDS: MONTELUKAST 10 MG TAB PO SCH (09:16)
[2023-01-19] MEDS: amLODIPine 5 MG TAB PO SCH (09:16)
[2023-01-19] MEDS: ASPIRIN 325 MG TAB PO SCH (09:16)
[2023-01-19] MEDS: DEXAMETHASONE SOD PHOSPHATE 10 MG/ML 1 ML VIAL IVP SCH (09:16)
[2023-01-19] MEDS: FUROSEMIDE 10 MG/ML 4 ML VIAL IV SCH ×2 (09:17→21:48)
[2023-01-19] MEDS: ASCORBIC ACID 500 MG TAB PO SCH (09:18)
[2023-01-19] MEDS: OXYBUTYNIN 10 MG TAB.ER.24 PO SCH (09:23)
[2023-01-19 10:06] LABS: Lymphocytes # (M) 1.47 k/uL (1.0-4.8); Monocytes # (M) 0.23 k/uL (0-1.0); Neutrophils # (M) 9.61 k/uL (1.3-7.7); Neutrophils % (M) 85 %; Nucleated Red Blood Cells 0 /100 WBC (0-0); Total Cells Counted 100
[2023-01-19 12:09] LABS: Glucose,Whole Blood 243 mg/dL (70-110)
--- NOTE | 2023-01-19 12:53 | P.PN ---
Subjective Progress Note Date: 01/19/23 82-year-old female patient, known history of multiple medical problems and comorbidities and was discharged and she was readmitted within 24 hours because of ongoing shortness of breath and a component of CHF. She is known to have CAD, nonobstructive disease, in addition to hypertension, hyperlipidemia, sick sinus syndrome and the patient a dual-chamber pacemaker insertion on 12/30/2022 and the patient has proximal A. fib and she has undergone cardioversion in the past. The patient was recently hospitalized for Covid 19 infection and she was treated with steroids and she was discharged home. During her hospitalization, the patient underwent a CT angiogram that showed no evidence of pulmonary e mbolism. The patient was found to have trace bilateral pleural effusion and pulmonary vascular congestion and a moderate-sized hiatal hernia. There was also evidence of multilevel degenerative vertebral changes with previous vertebroplasty. Note that her proBNP level remains elevated due to her CHF. This patient is nonvaccinated for Covid 19 and she has received original total dose of Fabricly vaccination and booster immunization. During this current admission, the response of 12.9 with a hemoglobin 10.5. The BUN is 41 with a creatinine of 1.2 and a sodium level of 135 with a potassium level of 4. Lactic acid level was at the drop down to 1.7. Still positive for Covid 19. ProBNP level is 2280, troponin is at 0.04 and a chest x-ray is consistent with cardiomegaly and CHF. The patient is currently on aspirin and Plavix and anticoagulation with Eliquis 5 mg by mouth twice a day. The patient is also on IV Solu-Medrol 40 mg by mouth 8 hours and Lasix 40 mg by mouth on a daily basis. She is receiving albuterol in the form of Ventolin [id number]. On 01/18/2023, the patient's Restasis as is stable. The patient is complaining of cramping in her muscles in the lower extremities and arms. She is currently on Robaxin and Aurora. She is also on diuretics with IV Lasix. The patient is also on Decadron regarding her Covid 19 infection. She has limited on long-term anticoagulation. There was another 3.6 with a hemoglobin of 11 and the BUN is 19 with a creatinine of 0.8 and sodium levels of 134. The patient remains on 3 L of oxygen by nasal cannula. The patient is hemodynamically stable at this point in time. On 01/19/2023, the patient is breathing easier. Less short of breath. Occasional cough and congestion. No significant fever or chills. The patient remains on steroids. The patient remains on diuretics. She is complaining of chronic back pain. She is on Levemir insulin for blood pressure control to 10 units along with a sliding scale coverage. She remains on Lasix 40 mg every 12 hours. She remains on Decadron. Anticoagulations with Eliquis. The patient's WBC count is 11.3 with a hemoglobin of 12 and a platelet count of 350. BUN is at 38 with a creatinine of 1.07 and a sodium level is at 136. Objective - Vital Signs Vital signs: Vital Signs Temp 97.8 F 01/19/23 09:29 Pulse 60 01/19/23 09:29 Resp 18 01/19/23 09:29 BP 130/75 01/19/23 09:29 Pulse Ox 96 01/19/23 09:29 FiO2 Intake & Output 01/18/23 01/19/23 01/19/23 18:59 06:59 18:59 Intake Total 256 220 658 Output Total 550 Balance -294 220 658 Weight 121 kg Intake: IV 20 20 Invasive Line 1 20 20 Oral 236 200 658 Output: Urine 550 Other: # Voids 450 2 - Exam GENERAL EXAM: Alert, 82-year-old white female, fairly comfortable. Breathing is nonlabored and the patient is currently on 3 L O2 nasal cannula HEAD: Normocephalic and atraumatic EYES: Normal reaction of pupils, equal size. NOSE: Clear with pink turbinates. THROAT: No erythema or exudates. NECK: No masses, no JVD. CHEST: No chest wall deformity. LUNGS: Equal air entry with scattered. No wheezes, crackles, or dullness. No conversational dyspnea or accessory muscle use.. CVS: S1 and S2 normal with no audible murmur, regular rhythm. No extra heart sounds ABDOMEN: Obese abdomen. No hepatosplenomegaly, active bowel sounds, no guarding or rigidity. SPINE: No scoliosis or deformity SKIN: No rashes CENTRAL NERVOUS SYSTEM: No focal deficits, tone is normal in all 4 extremities. EXTREMITIES: There is no peripheral edema, clubbing, or cyanosis. Peripheral pulses are intact. - Labs CBC & Chem 7: 01/19/23 06:38 01/19/23 06:38 Labs: Abnormal Lab Results - Last 24 Hours (Table) 01/18/23 01/18/23 01/18/23 Range/Units 12:14 16:52 20:38 WBC (3.8-10.6) k/uL Neutrophils # (Manual) (1.3-7.7) k/uL Sodium (137-145) mmol/L Chloride (98-107) mmol/L Carbon Dioxide (22-30) mmol/L BUN (7-17) mg/dL Creatinine (0.52-1.04) mg/dL POC Glucose (mg/dL) 313 H 299 H 314 H (70-110) mg/dL AST (14-36) U/L ALT (4-34) U/L 01/19/23 01/19/23 Range/Units 06:38 06:38 WBC 11.3 H (3.8-10.6) k/uL Neutrophils # (Manual) 9.61 H (1.3-7.7) k/uL Sodium 136 L (137-145) mmol/L Chloride 96 L (98-107) mmol/L Carbon Dioxide 32 H (22-30) mmol/L BUN 38 H (7-17) mg/dL Creatinine 1.07 H (0.52-1.04) mg/dL POC Glucose (mg/dL) (70-110) mg/dL AST 40 H (14-36) U/L ALT 40 H (4-34) U/L Assessment and Plan Plan: Acute hypoxemic respiratory failure, essentially related to CHF, could be exacerbated by her recent Covid 19 infection. Treated, discharged to be readmitted for the same with an elevated proBNP level. Still positive for Covid 19. No evidence of any Covid 19 pneumonia based on an earlier CAT scan of the chest and the base and the follow-up chest x-ray. Chronic lower back pain, the patient undergone previous kyphoplasty of the thoracic spine. Coronary artery disease, status post stent to the LAD and pacemaker insertion earlier this month, the patient has undergone PCI of the mid LAD Paroxysmal atrial fibrillation, anticoagulated on Eliquis, currently in normal sinus rhythm Diabetes mellitus type 2 Hyperlipidemia Essential hypertension Obesity with a BMI of 31 History of sick sinus syndrome, and the patient has a dual-chamber pacemaker insertion Plan Continue same treatment Continue Aurora and Robaxin for muscle cramps Continue IV Lasix and I would recommend 40 mg every 12 hours. Change the patient's oral Lasix as of tomorrow Continue Decadron 6 mg by mouth daily Continue anticoagulation with xarelto Continue all medication will continue to follow.
--- NOTE | 2023-01-19 13:58 | P.PN ---
Subjective Progress Note Date: 01/19/23 Patient is a 82-year-old white female with past medical history significant for coronary artery disease status post stent to the LAD and pacemaker insertion earlier this month, atrial fibrillation, diabetes mellitus type 2, hyperlipidemia, hypertension, obesity, chronic back pain presented to the ER because of worsening shortness of breath. Patient was discharged yesterday after being treated for similar complaints.On last admission patient was treated for acute COVID-19 infection was discharged on dexamethasone along with vitamin and zinc on discharge. patient stated that as soon as she got home she started complaining of worsening shortness of breath. Denied any chest pain. Patient had hard time catching her breath.. Patient also felt very tired and lethargic. Because of this worsening shortness of breath patient came back to the ER initial lab work in the ER showed WBC 12.9, hemoglobin 10.5, sodium 139, potassium 4, BUN 41, creatinine 1.22, troponin 0.040 Patient was admitted to medicine service 01/18. Patient seen and examined. States shortness of breath is improved. Patient is focused on her back pain states pain medications are not working 01/19. Patient seen and examined. Breathing is improving, not requiring any supplemental oxygen. Lab work done showed a PVC 10.3, hemoglobin 12, sodium 136, potassium 4, BUN 30, creatinine 1.07 REVIEW OF SYSTEMS: CONSTITUTIONAL: No fever, no malaise,. CARDIOVASCULAR: No chest pain, no palpitations, no syncope. PULMONARY: As mentioned above GASTROINTESTINAL: No diarrhea, no nausea, no vomiting, no abdominal pain. NEUROLOGICAL: No headaches, no weakness, PHYSICAL EXAMINATION: GENERAL: The patient is alert and oriented x3, not in any acute distress. Well developed, well nourished. HEENT: Pupils are round and equally reacting to light. EOMI. No scleral icterus. No conjunctival pallor. Normocephalic, atraumatic. No pharyngeal erythema. No thyromegaly. CARDIOVASCULAR: S1 and S2 present. No murmurs, rubs, or gallops. PULMONARY: Coarse breath sounds bilaterally, no expiratory wheeze audible ABDOMEN: Soft, nontender, nondistended, normoactive bowel sounds. No palpable organomegaly. MUSCULOSKELETAL: No joint swelling or deformity. EXTREMITIES: No cyanosis, clubbing, or pedal edema. NEUROLOGICAL: Gross neurological examination did not reveal any focal deficits. SKIN: No rashes. Assessment and plan Acute hypoxemic respiratory failure COVID-19 infection Chronic lower back pain, the patient undergone previous kyphoplasty of the thoracic spine. Coronary artery disease, status post stent to the LAD and pacemaker insertion earlier this month Paroxysmal atrial fibrillation, anticoagulated on Eliquis, currently in normal sinus rhythm Diabetes mellitus type 2 Hyperlipidemia Essential hypertension Morbid obesity with a BMI of 50 Monitor vital signs Monitor CBC Monitor CMP Continue telemetry monitoring Strict I's and O's, daily weights Continue IV Lasix 40 mg every 12 Continue Decadron 6 mg daily Continue breathing treatment Continue pain management follow-up on pulmonary recommendations Follow-up on cardiology recommendations Objective - Vital Signs Vital signs: Vital Signs Temp 97.8 F 01/19/23 09:29 Pulse 60 01/19/23 09:29 Resp 18 01/19/23 09:29 BP 130/75 01/19/23 09:29 Pulse Ox 96 01/19/23 09:29 FiO2 Intake & Output 01/18/23 01/19/23 01/19/23 18:59 06:59 18:59 Intake Total 256 220 658 Output Total 550 Balance -294 220 658 Weight 121 kg Intake: IV 20 20 Invasive Line 1 20 20 Oral 236 200 658 Output: Urine 550 Other: # Voids 450 2 - Labs CBC & Chem 7: 01/19/23 06:38 01/19/23 06:38 Labs: Abnormal Lab Results - Last 24 Hours (Table) 01/18/23 01/18/23 01/19/23 Range/Units 16:52 20:38 06:38 WBC 11.3 H (3.8-10.6) k/uL Neutrophils # (Manual) 9.61 H (1.3-7.7) k/uL Sodium (137-145) mmol/L Chloride (98-107) mmol/L Carbon Dioxide (22-30) mmol/L BUN (7-17) mg/dL Creatinine (0.52-1.04) mg/dL POC Glucose (mg/dL) 299 H 314 H (70-110) mg/dL AST (14-36) U/L ALT (4-34) U/L 01/19/23 01/19/23 Range/Units 06:38 12:07 WBC (3.8-10.6) k/uL Neutrophils # (Manual) (1.3-7.7) k/uL Sodium 136 L (137-145) mmol/L Chloride 96 L (98-107) mmol/L Carbon Dioxide 32 H (22-30) mmol/L BUN 38 H (7-17) mg/dL Creatinine 1.07 H (0.52-1.04) mg/dL POC Glucose (mg/dL) 243 H (70-110) mg/dL AST 40 H (14-36) U/L ALT 40 H (4-34) U/L
[2023-01-19 16:32] LABS: Glucose,Whole Blood 333 mg/dL (70-110)
[2023-01-19 20:17] LABS: Glucose,Whole Blood 390 mg/dL (70-110)
[2023-01-20] MEDS: HYDROcodone/APAP 7.5-325MG 1 EACH TAB PO PRN ×2 (01:16→08:20)
[2023-01-20 03:39] VITALS: PULSE 60
[2023-01-20 06:01] LABS: Glucose,Whole Blood 215 mg/dL (70-110)
[2023-01-20] MEDS: PANTOPRAZOLE 40 MG TABLET PO SCH (06:51)
[2023-01-20] MEDS: INSULIN DETEMIR (LEVEMIR) 100 UNIT/ML SYR SQ SCH (06:51)
[2023-01-20] MEDS: INSULIN ASPART (NovoLOG) 100 UNIT/ML VIAL SQ SCH ×2 (06:52→12:32)
[2023-01-20] MEDS: FUROSEMIDE 10 MG/ML 4 ML VIAL IV SCH (08:19)
[2023-01-20] MEDS: OXYBUTYNIN 10 MG TAB.ER.24 PO SCH (08:19)
[2023-01-20] MEDS: CLOPIDOGREL 75 MG TAB PO SCH (08:20)
[2023-01-20] MEDS: ASCORBIC ACID 500 MG TAB PO SCH (08:20)
[2023-01-20] MEDS: hydrALAZINE HCL 25 MG TAB PO SCH (08:21)
[2023-01-20] MEDS: ASPIRIN 325 MG TAB PO SCH (08:21)
[2023-01-20] MEDS: guaiFENesin 600 MG TABLET.ER PO SCH (08:21)
[2023-01-20] MEDS: APIXABAN 5 MG TAB PO SCH (08:21)
[2023-01-20] MEDS: DEXAMETHASONE SOD PHOSPHATE 10 MG/ML 1 ML VIAL IVP SCH (08:21)
[2023-01-20] MEDS: ZINC SULFATE 220 MG CAP PO SCH (08:21)
[2023-01-20] MEDS: MONTELUKAST 10 MG TAB PO SCH (08:21)
[2023-01-20] MEDS: ATORVASTATIN 40 MG TAB PO SCH (08:21)
[2023-01-20] MEDS: GABAPENTIN 300 MG CAP PO SCH (08:22)
[2023-01-20] MEDS: amLODIPine 5 MG TAB PO SCH (08:22)
[2023-01-20] MEDS: METOPROLOL SUCCINATE (ER) 50 MG TAB.ER.24H PO SCH (08:22)
[2023-01-20] MEDS: FLUTICASONE 110 MCG INHALER INHALATION SCH (09:21)
[2023-01-20] MEDS: ALBUTEROL HFA INHALER INHALATION SCH ×3 (09:21→15:45)
[2023-01-20 11:58] LABS: Glucose,Whole Blood 300 mg/dL (70-110)
[2023-01-20] MEDS: methocarbamoL 500 MG TAB PO PRN (12:32)
[2023-01-20 12:50] VITALS: BP 123/76; RESP 20; TEMP 98.1
--- NOTE | 2023-01-20 13:10 | P.DS ---
Providers Date of admission: 01/17/23 06:46 Expected date of discharge: 01/20/23 Attending physician: Nisreen Madera MD Consults: 01/17/23 06:44 Consult Physician Urgent Consulting Provider: [facility] Consult Reason/Comments: acute chf Do you want consulting provider notified?: Yes 01/17/23 10:00 Consult Physician Urgent Consulting Provider: Jordi Pelaez Consult Reason/Comments: acute respiratory failure,COVID-19 Do you want consulting provider notified?: Yes Primary care physician: Rox Parmar Hospital Course: Discharge diagnoses; Acute hypoxemic respiratory failure Acute on chronic diastolic heart failure COVID-19 infection Chronic lower back pain, the patient undergone previous kyphoplasty of the thoracic spine. Coronary artery disease, status post stent to the LAD and pacemaker insertion earlier this month Paroxysmal atrial fibrillation, anticoagulated on Eliquis, currently in normal sinus rhythm Diabetes mellitus type 2 Hyperlipidemia Essential hypertension Morbid obesity with a BMI of 50 Hospital course; Patient is a 82-year-old white female with past medical history significant for coronary artery disease status post stent to the LAD and pacemaker insertion earlier this month, atrial fibrillation, diabetes mellitus type 2, hyperlipidemia, hypertension, obesity, chronic back pain presented to the ER because of worsening shortness of breath. Patient was discharged yesterday after being treated for similar complaints.On last admission patient was treated for acute COVID-19 infection was discharged on dexamethasone along with vitamin and zinc on discharge. patient stated that as soon as she got home she started complaining of worsening shortness of breath. Denied any chest pain. Patient had hard time catching her breath.. Patient also felt very tired and lethargic. Because of this worsening shortness of breath patient came back to the ER initial lab work in the ER showed WBC 12.9, hemoglobin 10.5, sodium 139, potassium 4, BUN 41, creatinine 1.22, troponin 0.040 Patient was admitted to medicine service 01/18. Patient seen and examined. States shortness of breath is improved. Patient is focused on her back pain states pain medications are not working 01/19. Patient seen and examined. Breathing is improving, not requiring any supplemental oxygen. Lab work done showed a PVC 10.3, hemoglobin 12, sodium 136, potassium 4, BUN 30, creatinine 1.07 01/20. Patient seen and examined. Currently on room air, shortness of breath improved. Occasional cough. Patient had walking resting pulse ox done, requiring 2 L Oxygen on exertion. Being discharged on Lasix 40 mg daily Is home dose and Decadron 6 Daily which she was already given a prescription for in previous admission PHYSICAL EXAMINATION: GENERAL: The patient is alert and oriented x3, not in any acute distress. Well developed, well nourished. HEENT: Pupils are round and equally reacting to light. EOMI. No scleral icterus. No conjunctival pallor. Normocephalic, atraumatic. No pharyngeal erythema. No thyromegaly. CARDIOVASCULAR: S1 and S2 present. No murmurs, rubs, or gallops. PULMONARY: Chest is clear to auscultation, no wheezing or crackles. ABDOMEN: Soft, nontender, nondistended, normoactive bowel sounds. No palpable organomegaly. MUSCULOSKELETAL: No joint swelling or deformity. EXTREMITIES: No cyanosis, clubbing, or pedal edema. NEUROLOGICAL: Gross neurological examination did not reveal any focal deficits. SKIN: No rashes. Patient Condition at Discharge: Good Plan - Discharge Summary Discharge Rx Participant: No New Discharge Prescriptions: Continue glipiZIDE XL [Glucotrol XL] 5 mg PO DAILY amLODIPine [Norvasc] 5 mg PO DAILY sitaGLIPtin [Januvia] 100 mg PO DAILY Montelukast [Singulair] 10 mg PO DAILY Atorvastatin [Lipitor] 40 mg PO DAILY Metoprolol Succinate [Toprol XL] 50 mg PO DAILY Apixaban [Eliquis] 5 mg PO BID Tolterodine Tartrate [Tolterodine Tartrate ER] 4 mg PO DAILY Albuterol Nebulized [Ventolin Nebulized] 2.5 mg INHALATION RT-QID Budesonide [Pulmicort] 0.5 mg INHALATION RT-BID Omeprazole 40 mg PO DAILY Clopidogrel [Plavix] 75 mg PO DAILY 30 Days #30 tab Aspirin 325 mg PO DAILY #30 tab dexAMETHasone ORAL [Hexadrol] 6 mg PO DAILY 7 Days #21 tab Nitroglycerin Sl Tabs [Nitrostat] 0.4 mg SUBLINGUAL Q5M PRN #20 tab PRN Reason: Chest Pain Ascorbic Acid [Vitamin C] 1,000 mg PO DAILY #60 tab Gabapentin 300 mg PO BID HYDROcodone/APAP 7.5-325MG [[place] 7.5-325] 1 tab PO BID PRN PRN Reason: Pain Insulin Glargine,Hum.rec.anlog [Lantus Solostar Pen] 10 units SQ DAILY hydrALAZINE HCL [Apresoline] 25 mg PO BID #60 tab Furosemide [Lasix] 40 mg PO DAILY #30 tab methocarbamoL [Robaxin] 500 mg PO Q6H PRN PRN Reason: Pain Losartan [Cozaar] 25 mg PO DAILY 30 Days #30 tab Benzonatate [Tessalon Perle] 200 mg PO TID PRN PRN Reason: Cough Zinc Sulfate [Orazinc] 220 mg PO DAILY 14 Days #14 cap Discharge Medication List glipiZIDE XL [Glucotrol XL] 5 mg PO DAILY 12/04/17 [History] amLODIPine [Norvasc] 5 mg PO DAILY 04/09/18 [History] sitaGLIPtin [Januvia] 100 mg PO DAILY 04/09/18 [History] Montelukast [Singulair] 10 mg PO DAILY 03/28/19 [History] Atorvastatin [Lipitor] 40 mg PO DAILY 04/09/19 [History] Metoprolol Succinate [Toprol XL] 50 mg PO DAILY 09/16/20 [History] Apixaban [Eliquis] 5 mg PO BID 09/04/22 [History] Gabapentin 300 mg PO BID 09/04/22 [History] HYDROcodone/APAP 7.5-325MG [[place] 7.5-325] 1 tab PO BID PRN 09/04/22 [History] Insulin Glargine,Hum.rec.anlog [Lantus Solostar Pen] 10 units SQ DAILY 09/04/22 [History] Furosemide [Lasix] 40 mg PO DAILY #30 tab 09/06/22 [Rx] hydrALAZINE HCL [Apresoline] 25 mg PO BID #60 tab 09/06/22 [Rx] Tolterodine Tartrate [Tolterodine Tartrate ER] 4 mg PO DAILY 10/16/22 [History] Albuterol Nebulized [Ventolin Nebulized] 2.5 mg INHALATION RT-QID 12/30/22 [History] Budesonide [Pulmicort] 0.5 mg INHALATION RT-BID 12/30/22 [History] Omeprazole 40 mg PO DAILY 12/30/22 [History] methocarbamoL [Robaxin] 500 mg PO Q6H PRN 12/30/22 [History] Clopidogrel [Plavix] 75 mg PO DAILY 30 Days #30 tab 01/05/23 [Rx] Losartan [Cozaar] 25 mg PO DAILY 30 Days #30 tab 01/05/23 [Rx] Benzonatate [Tessalon Perle] 200 mg PO TID PRN 01/13/23 [History] Ascorbic Acid [Vitamin C] 1,000 mg PO DAILY #60 tab 01/15/23 [Rx] Aspirin 325 mg PO DAILY #30 tab 01/15/23 [Rx] Nitroglycerin Sl Tabs [Nitrostat] 0.4 mg SUBLINGUAL Q5M PRN #20 tab 01/15/23 [Rx] Zinc Sulfate [Orazinc] 220 mg PO DAILY 14 Days #14 cap 01/15/23 [Rx] dexAMETHasone ORAL [Hexadrol] 6 mg PO DAILY 7 Days #21 tab 01/15/23 [Rx] Follow up Appointment(s)/Referral(s): Rox Parmar DO [Primary Care Provider] - 1-2 days Discharge Disposition: HOME WITH HOME HEALTH SERVICES
--- NOTE | 2023-01-20 14:06 | P.PN ---
Subjective Progress Note Date: 01/20/23 82-year-old female patient, known history of multiple medical problems and comorbidities and was discharged and she was readmitted within 24 hours because of ongoing shortness of breath and a component of CHF. She is known to have CAD, nonobstructive disease, in addition to hypertension, hyperlipidemia, sick sinus syndrome and the patient a dual-chamber pacemaker insertion on 12/30/2022 and the patient has proximal A. fib and she has undergone cardioversion in the past. The patient was recently hospitalized for Covid 19 infection and she was treated with steroids and she was discharged home. During her hospitalization, the patient underwent a CT angiogram that showed no evidence of pulmonary em bolism. The patient was found to have trace bilateral pleural effusion and pulmonary vascular congestion and a moderate-sized hiatal hernia. There was also evidence of multilevel degenerative vertebral changes with previous vertebroplasty. Note that her proBNP level remains elevated due to her CHF. This patient is nonvaccinated for Covid 19 and she has received original total dose of Veracyte vaccination and booster immunization. During this current admission, the response of 12.9 with a hemoglobin 10.5. The BUN is 41 with a creatinine of 1.2 and a sodium level of 135 with a potassium level of 4. Lactic acid level was at the drop down to 1.7. Still positive for Covid 19. ProBNP level is 2280, troponin is at 0.04 and a chest x-ray is consistent with cardiomegaly and CHF. The patient is currently on aspirin and Plavix and anticoagulation with Eliquis 5 mg by mouth twice a day. The patient is also on IV Solu-Medrol 40 mg by mouth 8 hours and Lasix 40 mg by mouth on a daily basis. She is receiving albuterol in the form of Ventolin [id number]. On 01/18/2023, the patient's Restasis as is stable. The patient is complaining of cramping in her muscles in the lower extremities and arms. She is currently on Robaxin and [place]. She is also on diuretics with IV Lasix. The patient is also on Decadron regarding her Covid 19 infection. She has limited on long-term anticoagulation. There was another 3.6 with a hemoglobin of 11 and the BUN is 19 with a creatinine of 0.8 and sodium levels of 134. The patient remains on 3 L of oxygen by nasal cannula. The patient is hemodynamically stable at this point in time. On 01/19/2023, the patient is breathing easier. Less short of breath. Occasional cough and congestion. No significant fever or chills. The patient remains on steroids. The patient remains on diuretics. She is complaining of chronic back pain. She is on Levemir insulin for blood pressure control to 10 units along with a sliding scale coverage. She remains on Lasix 40 mg every 12 hours. She remains on Decadron. Anticoagulations with Eliquis. The patient's WBC count is 11.3 with a hemoglobin of 12 and a platelet count of 350. BUN is at 38 with a creatinine of 1.07 and a sodium level is at 136. The patient is seen today 01/20/2023 in follow-up on the regular medical floor. She is currently up ambulating in her room. Awake and alert in no acute distress. Maintaining O2 saturations in the 90s on room air. Afebrile. Hemodynamically stable. Blood sugar 2:15. She is continued on Decadron, Flovent and albuterol. Anticoagulated with Eliquis. Remains on IV diuretics. No accurate I&O. Objective - Vital Signs Vital signs: Vital Signs Temp 98.1 F 01/20/23 12:30 Pulse 60 01/20/23 12:30 Resp 20 01/20/23 12:30 BP 123/76 01/20/23 12:30 Pulse Ox 95 01/20/23 12:30 FiO2 Intake & Output 01/19/23 01/20/23 01/20/23 18:59 06:59 18:59 Intake Total 776 300 358 Output Total 600 Balance 776 300 -242 Weight 120.7 kg Intake: Oral 776 300 358 Output: Urine 600 Other: # Voids 3 - Exam GENERAL EXAM: Alert, pleasant 82-year-old female, comfortable. Breathing is nonlabored and the patient is currently on room air HEAD: Normocephalic and atraumatic EYES: Normal reaction of pupils, equal size. NOSE: Clear with pink turbinates. THROAT: No erythema or exudates. NECK: No masses, no JVD. CHEST: No chest wall deformity. LUNGS: Equal air entry with scattered. No wheezes, crackles, or dullness. No conversational dyspnea or accessory muscle use.. CVS: S1 and S2 normal with no audible murmur, regular rhythm. No extra heart sounds ABDOMEN: Obese abdomen. No hepatosplenomegaly, active bowel sounds, no guarding or rigidity. SPINE: No scoliosis or deformity SKIN: No rashes CENTRAL NERVOUS SYSTEM: No focal deficits, tone is normal in all 4 extremities. EXTREMITIES: There is no peripheral edema, clubbing, or cyanosis. Peripheral pulses are intact. - Labs CBC & Chem 7: 01/19/23 06:38 01/19/23 06:38 Labs: Abnormal Lab Results - Last 24 Hours (Table) 01/19/23 01/19/23 01/19/23 Range/Units 06:38 16:29 20:16 POC Glucose (mg/dL) 333 H 390 H (70-110) mg/dL Hemoglobin A1c 7.6 H (<=6.0) % 01/20/23 01/20/23 Range/Units 06:00 11:55 POC Glucose (mg/dL) 215 H 300 H (70-110) mg/dL Hemoglobin A1c (<=6.0) % Assessment and Plan Assessment: Acute hypoxemic respiratory failure, essentially related to CHF, could be exacerbated by her recent Covid 19 infection. Treated, discharged to be readmitted for the same with an elevated proBNP level. Still positive for Covid 19. No evidence of any Covid 19 pneumonia based on an earlier CAT scan of the chest and the base and the follow-up chest x-ray. Stable and on room air. Chronic lower back pain, the patient undergone previous kyphoplasty of the thoracic spine. Coronary artery disease, status post stent to the LAD and pacemaker insertion earlier this month, the patient has undergone PCI of the mid LAD Paroxysmal atrial fibrillation, anticoagulated on Eliquis, currently in normal sinus rhythm Diabetes mellitus type 2 Hyperlipidemia Essential hypertension Obesity with a BMI of 46 History of sick sinus syndrome, and the patient has a dual-chamber pacemaker insertion Plan: The patient was seen and evaluated Medications reviewed Stable and on room air Cleared for discharge from the pulmonary standpoint Continue her home pulmonary medications Follow-up in the office in 1 week I have personally seen and examined the patient, performed the documentation and the assessment and plan as written. Number of minutes spent on the visit: 10.
== END 2023-01-20 16:51 | disposition home health service (06) | DRG 177 ==
LOC: EC 04:07 → 3SCARD 06:46
PROVIDERS: ADMIT Internal Medicine; ATTEND Internal Medicine
PROC: 8E0ZXY6 Isolation (ICD-10-PCS; principal; 2023-01-17)
DX: U07.1 COVID-19 (principal); I50.33 Acute on chronic diastolic (congestive) heart failure; J96.01 Acute respiratory failure with hypoxia; Z68.43 Body mass index [BMI] 50.0-59.9, adult; I27.20 Pulmonary hypertension, unspecified; I49.5 Sick sinus syndrome; I11.0 Hypertensive heart disease with heart failure; E66.01 Morbid (severe) obesity due to excess calories; E11.9 Type 2 diabetes mellitus without complications; I08.3 Combined rheumatic disorders of mitral, aortic and tricuspid valves; I48.0 Paroxysmal atrial fibrillation; I25.10 Atherosclerotic heart disease of native coronary artery without angina pectoris; R60.0 Localized edema; E78.5 Hyperlipidemia, unspecified; G89.29 Other chronic pain; M54.6 Pain in thoracic spine; K44.9 Diaphragmatic hernia without obstruction or gangrene; R25.2 Cramp and spasm; Z79.4 Long term (current) use of insulin; Z88.1 Allergy status to other antibiotic agents; Z88.5 Allergy status to narcotic agent; Z79.82 Long term (current) use of aspirin; Z79.899 Other long term (current) drug therapy; Z79.02 Long term (current) use of antithrombotics/antiplatelets; Z79.51 Long term (current) use of inhaled steroids; Z79.01 Long term (current) use of anticoagulants; Z79.84 Long term (current) use of oral hypoglycemic drugs; Z95.0 Presence of cardiac pacemaker; Z95.5 Presence of coronary angioplasty implant and graft; Z82.49 Family history of ischemic heart disease and other diseases of the circulatory system
CPT/HCPCS: 36415; 71045; 80048; 80053; 83036; 83605; 83880; 84484; 85025; 85610; 85730; 87635; 93005; 94640; 94760; 96374; 99285

== ENCOUNTER 2023-03-05 13:06 | Emergency (ER) | payer MEDICARE ==
--- NOTE | 2023-03-05 13:16 | ED ---
General Adult HPI - General Stated complaint: Muscle Spasms in middle of Back Time Seen by Provider: 03/05/23 13:06 Source: patient, RN notes reviewed, old records reviewed - History of Present Illness Initial comments: This is an 82-year-old female who presents to the emergency department with left-sided mid back pain. Patient states it's a spasm. Patient states she's been getting these for over 50 years. Patient states normally she uses a a TENS unit but because she just had a pacemaker placed she's not a lot he is currently and she couldn't bear the pain today. Patient did receive Toradol and it did help a little. Patient denies any other symptoms. Patient states he's are the exact same symptom she's had on and off for the last 50 years. Patient denies any chest pain or palpitations patient denies any difficulty breathing shortness of breath per patient denies any lightheadedness or dizziness. Patient denies pain in any other spot. - Related Data Home Medications Medication Instructions Recorded Confirmed amLODIPine [Norvasc] 5 mg PO DAILY 04/09/18 02/17/23 sitaGLIPtin [Januvia] 100 mg PO DAILY 04/09/18 02/17/23 Montelukast [Singulair] 10 mg PO DAILY 03/28/19 02/17/23 Atorvastatin [Lipitor] 40 mg PO DAILY 04/09/19 02/17/23 Metoprolol Succinate [Toprol XL] 50 mg PO DAILY 09/16/20 02/17/23 Apixaban [Eliquis] 5 mg PO BID 09/04/22 02/17/23 Gabapentin 300 mg PO BID 09/04/22 02/17/23 HYDROcodone/APAP 7.5-325MG [[place] 1 tab PO Q6H PRN 09/04/22 02/17/23 7.5-325] Insulin Glargine,Hum.rec.anlog 10 units SQ DAILY 09/04/22 02/17/23 [Lantus Solostar Pen] Tolterodine Tartrate [Tolterodine 4 mg PO DAILY 10/16/22 02/17/23 Tartrate ER] Albuterol Nebulized [Ventolin 2.5 mg INHALATION RT-QID 12/30/22 02/17/23 Nebulized] Budesonide [Pulmicort] 0.5 mg INHALATION RT-BID 12/30/22 02/17/23 Omeprazole 40 mg PO DAILY 12/30/22 02/17/23 methocarbamoL [Robaxin] 500 mg PO Q6H PRN 12/30/22 02/17/23 Benzonatate [Tessalon Perle] 200 mg PO TID PRN 01/13/23 02/17/23 Cyclobenzaprine [Flexeril] 10 mg PO BID PRN 02/17/23 02/17/23 glipiZIDE XL [Glucotrol Xl] 10 mg PO DAILY 02/17/23 02/17/23 Previous Rx's Medication Instructions Recorded Furosemide [Lasix] 40 mg PO DAILY #30 tab 09/06/22 hydrALAZINE HCL [Apresoline] 25 mg PO BID #60 tab 09/06/22 Clopidogrel [Plavix] 75 mg PO DAILY 30 Days #30 tab 01/05/23 Losartan [Cozaar] 25 mg PO DAILY 30 Days #30 tab 01/05/23 Ascorbic Acid [Vitamin C] 1,000 mg PO DAILY #60 tab 01/15/23 Aspirin 325 mg PO DAILY #30 tab 01/15/23 Nitroglycerin Sl Tabs [Nitrostat] 0.4 mg SUBLINGUAL Q5M PRN #20 tab 01/15/23 Zinc Sulfate [Orazinc] 220 mg PO DAILY 14 Days #14 cap 01/15/23 Lidocaine 5% Patch [Lidoderm 5% 1 patch TOPICAL DAILY PRN #7 patch 02/15/23 Patch] Allergies Allergy/AdvReac Type Severity Reaction Status Date / Time tetracycline Allergy Unknown Verified 03/05/23 13:36 fentanyl AdvReac "IN Verified 03/05/23 13:36 ANOTHER PLANET, DIDNT KNOW WHERE SHE WAS" morphine AdvReac Nausea & Verified 03/05/23 13:36 Vomiting Review of Systems ROS Statement: Those systems with pertinent positive or pertinent negative responses have been documented in the HPI. ROS Other: All systems not noted in ROS Statement are negative. Past Medical History Past Medical History: Atrial Fibrillation, Chest Pain / Angina, Diabetes Mellitus, Hyperlipidemia, Hypertension, Osteoarthritis (OA), Pneumonia Additional Past Medical History / Comment(s): Paroxysmal Afib, POST OP INFECTION AFTER BACK SURGERY, CHRONIC BACK PAIN FROM T8 FX, CHRONIC PERIPHERAL LEG EDEMA,R humerus fracture. History of Any Multi-Drug Resistant Organisms: None Reported Past Surgical History: Back Surgery, Cholecystectomy, Heart Catheterization With Stent, Orthopedic Surgery, Pacemaker Additional Past Surgical History / Comment(s): 2015 LUMBAR SURGERY, FX NOSE REPAIR, BILATERAL CATARACT SURGERY, R WRIST CARPAL TUNNEL SURGERY, kyphoplasty T8 ON 06/26/16 AND ONE BEFORE. Pacemaker placed 01/06/2023 Past Anesthesia/Blood Transfusion Reactions: No Reported Reaction Additional Past Anesthesia/Blood Transfusion Reaction / Comment(s): NEVER HAD A BLOOD TRANSFUSION. Date of Last Stent Placement:: 01/01/23 Type of Cardiac Device: Permanent Pacemaker Device Placement Date:: 12/30/22 Past Psychological History: No Psychological Hx Reported Smoking Status: Never smoker Past Alcohol Use History: None Reported Past Drug Use History: None Reported - Past Family History Father Family Medical History: Myocardial Infarction ([place]) Additional Family Medical History / Comment(s): FATHER AT AGE 52 OF AN [place] Mother Additional Family Medical History / Comment(s): MOTHER AT AGE 89 OF CELEBREX PROBLEM. General Exam - General Exam Comments Initial Comments: GENERAL: Patient is well-developed and well-nourished. Patient is nontoxic and well- hydrated and is in mild distress. ENT: Neck is soft and supple. No significant lymphadenopathy is noted. Oropharynx is clear. Moist mucous membranes. Neck has full range of motion without eliciting any pain. EYES: The sclera were anicteric and conjunctiva were pink and moist. Extraocular movements were intact and pupils were equal round and reactive to light. Eyelids were unremarkable. PULMONARY: Unlabored respirations. Good breath sounds bilaterally. No audible rales rhonchi or wheezing was noted. CARDIOVASCULAR: There is a regular rate and rhythm without any murmurs gallops or rubs. ABDOMEN: Soft and nontender with normal bowel sounds. SKIN: Skin is clear with no lesions or rashes and otherwise unremarkable. NEUROLOGIC: Patient is alert and oriented x3. Cranial nerves II through XII are grossly intact. Motor and sensory are also intact. Normal speech, volume and content. Symmetrical smile. MUSCULOSKELETAL: Normal extremities with adequate strength and full range of motion. Patient has point tenderness to the paraspinous muscles on the left lower thoracic region LYMPHATICS: No significant lymphadenopathy is noted PSYCHIATRIC: Normal psychiatric evaluation. Course Vital Signs 03/05/23 03/05/23 03/05/23 13:11 13:29 13:36 Temperature 98.6 F 98.6 F Pulse Rate 104 H 93 90 Respiratory 17 18 18 Rate Blood Pressure 136/76 136/76 O2 Sat by Pulse 92 L 93 L 92 L Oximetry 03/05/23 15:00 Temperature Pulse Rate 87 Respiratory 16 Rate Blood Pressure 136/76 O2 Sat by Pulse 94 L Oximetry Medical Decision Making - Medical Decision Making EKG was interpreted by myself shows atrial fibrillation at 106 bpm QRS is 87 QT interval 03 QTC is 365 per patient's EKG shows no ST segment elevation or depression Was pt. sent in by a medical professional or institution (, PA, TOOL AND DIE TECHNICIAN, urgent care, hospital, or shelter...) When possible be specific @ -No Did you speak to anyone other than the patient for history (EMS, parent, family, police, friend...)? What history was obtained from this source @ -No Did you review nursing and triage notes (agree or disagree)? Why? @ -I reviewed and agree with nursing and triage notes Were old charts reviewed (outside hosp., previous admission, EMS record, old EKG, old radiological studies, urgent care reports/EKG's, shelter records)? Report findings @ -No old charts were reviewed Differential Diagnosis (chest pain, altered mental status, abdominal pain women, abdominal pain men, vaginal bleeding, weakness, fever, dyspnea, syncope, headache, dizziness, GI bleed, back pain, seizure, CVA, palpatations, mental health, musculoskeletal)? @ -Differential Musculoskeletal Muscular strain, contusion, ligament sprain, fracture, arthritis, septic arthritis, bursitis, cellulitis, muscle spasm, nerve compression, DVT, arterial occlusion, herpes zoster, electrolyte abnormality, tumor.... This is not meant to be in all inclusive list EKG interpreted by me (3pts min.). @ -As above X-rays interpreted by me (1pt min.). @ -X-ray of the knee showed no acute abnormality CT interpreted by me (1pt min.). @ -None done U/S interpreted by me (1pt. min.). @ -None done What testing was considered but not performed or refused? (CT, X-rays, U/S, labs)? Why? @ -None What meds were considered but not given or refused? Why? @ -None Did you discuss the management of the patient with other professionals (professionals i.e. , PA, TOOL AND DIE TECHNICIAN, lab, RT, psych nurse, clinical social worker, malt house kiln operator, teacher, state highway police officer, foster care case manager)? Give summary @ -No Was smoking cessation discussed for >3mins.? @ -No Was critical care preformed (if so, how long)? @ -No Were there social determinants of health that impacted care today? How? (Homelessness, low income, unemployed, alcoholism, drug addiction, transportation, low edu. Level, literacy, decrease access to med. care, usp, rehab)? @ -No Was there de-escalation of care discussed even if they declined (Discuss DNR or withdrawal of care, Hospice)? DNR status @ -No What co-morbidities impacted this encounter? (DM, HTN, Smoking, COPD, CAD, Cancer, CVA, ARF, Chemo, Hep., AIDS, mental health diagnosis, sleep apnea, morbid obesity)? @ -None Was patient admitted / discharged? Hospital course, mention meds given and route, prescriptions, significant lab abnormalities, going to OR and other pertinent info. @ -Patient received Valium and Dilaudid for the spasm in the back she was feeling considerably better and was sleeping when I went back into the room to reevaluate her she did states she twisted her knee x-ray was done and showed no acute abnormality. Patient was comfortable going home she will follow-up with her route specialist to see if she continues her TENS unit again Undiagnosed new problem with uncertain prognosis? @ -No Drug Therapy requiring intensive monitoring for toxicity (Heparin, Nitro, Insulin, Cardizem)? @ -No Were any procedures done? @ -No Diagnosis/symptom? @ -Back spasms Acute, or Chronic, or Acute on Chronic? @ -Acute on chronic Uncomplicated (without systemic symptoms) or Complicated (systemic symptoms)? @ -Uncomplicated Side effects of treatment? @ -No Exacerbation, Progression, or Severe Exacerbation? @ -No Poses a threat to life or bodily function? How? (Chest pain, [place], [place], pneumonia, PE, COPD, DKA, ARF, appy, cholecystitis, CVA, Diverticulitis, Homicidal, Suicidal, threat to staff... and all critical care pts) @ -No Disposition Clinical Impression: Back muscle spasm Disposition: HOME SELF-CARE Condition: Good Instructions (If sedation given, give patient instructions): Muscle Spasm (ED) Is patient prescribed a controlled substance at d/c from ED?: No Referrals: Rox Parmar DO [Primary Care Provider] - 1-2 days Time of Disposition: 16:23
[2023-03-05] MEDS ORDERED: HYDROmorphone 0.5 MG/0.5 ML SYRINGE IVP STA (15:00)
--- NOTE | 2023-03-05 16:14 | XR ---
EXAMINATION TYPE: XR knee complete RT DATE OF EXAM: 03/05/2023 CLINICAL HISTORY: pain TECHNIQUE: Three views of the right knee are obtained. COMPARISON: None. FINDINGS: There is no acute fracture/dislocation. The tri-compartment joint spaces appear severely narrowed at the medial tibiofemoral joint space and moderate narrowing patellofemoral joint space. Horton bchondral sclerosis. Spur formation at the margins of the tibial plateau and femoral condyles as well as intercondylar regions. Small joint effusion seen. The overlying soft tissue appears unremarkable. IMPRESSION: There is no acute fracture or dislocation. ICD 10 NO FRACTURE, INITIAL EVALUATION
[2023-03-05 18:28] VITALS: RESP 18
[2023-03-05 18:30] VITALS: BP 129/75; PULSE 98; TEMP 98
== END 2023-03-05 18:30 | disposition home or self-care (01) ==
LOC: EC 13:06
DX: M62.830 Muscle spasm of back (principal); E11.9 Type 2 diabetes mellitus without complications; E78.5 Hyperlipidemia, unspecified; I10 Essential (primary) hypertension; I48.0 Paroxysmal atrial fibrillation; M19.90 Unspecified osteoarthritis, unspecified site; Z88.5 Allergy status to narcotic agent; Z88.8 Allergy status to other drugs, medicaments and biological substances; Z79.4 Long term (current) use of insulin; Z79.51 Long term (current) use of inhaled steroids; Z79.84 Long term (current) use of oral hypoglycemic drugs; Z79.899 Other long term (current) drug therapy
CPT/HCPCS: 93005; 73562; 99284; 96374; 96375; J3360; J1170

== ENCOUNTER 2023-04-04 20:57 | Inpatient (IN) | payer MEDICARE ==
[2023-04-04] MEDS ORDERED: NITROGLYCERIN OINT 1 INCH/GM PACKET TOPICAL STA (21:23)
--- NOTE | 2023-04-04 22:04 | XR ---
EXAMINATION TYPE: XR chest 2V DATE OF EXAM: 04/04/2023 COMPARISON: 02/17/2023 INDICATION: Chest pain TECHNIQUE: Frontal and lateral views of the chest are obtained. FINDINGS: The heart size is normal. The pulmonary vasculature is normal. The lungs are clear. Pacemaker overlies left chest. IMPRESSION: 1. No acute pulmonary process.
[2023-04-04 22:05] LABS: Basophils % (A) 0 %; Eosinophils # (A) 0.2 k/uL (0-0.7); Eosinophils % (A) 3 %; HGB 11.9 gm/dL (11.4-16.0); Hypochromasia Slight; Lymphocytes # (A) 0.7 k/uL (1.0-4.8); Lymphocytes % (A) 13 %; MCH 31.6 pg (25.0-35.0); MCHC 32.1 g/dL (31.0-37.0); MCV 98.6 fL (80.0-100.0); Mean Platelet Volume 8.4; Monocytes # (A) 0.3 k/uL (0-1.0); Monocytes % (A) 5 %; Neutrophils # (A) 4.2 k/uL (1.3-7.7); Neutrophils % (A) 77 %; Platelet Count 229 k/uL (150-450); RBC 3.76 m/uL (3.80-5.40); WBC 5.4 k/uL (3.8-10.6)
[2023-04-04 22:13] LABS: ALT 15 U/L (4-34); African American GFR (CKD) 62 (>60 ml/min/1.73 sqM); Anion Gap 6 mmol/L; Blood Urea Nitrogen 18 mg/dL (7-17); Calcium 9.3 mg/dL (8.4-10.2); Carbon Dioxide 28 mmol/L (22-30); Chloride 103 mmol/L (98-107); Glucose 146 mg/dL (74-99); Lipase 24 U/L (23-300); Non-African American GFR(CKD) 54 (>60 ml/min/1.73 sqM); Sodium 137 mmol/L (137-145); Total Bilirubin 0.9 mg/dL (0.2-1.3)
[2023-04-04 22:20] LABS: AST 30 U/L (14-36); Albumin 4.2 g/dL (3.5-5.0); Alkaline Phosphatase 139 U/L (38-126); Potassium 4.8 mmol/L (3.5-5.1); Total Protein 7.2 g/dL (6.3-8.2)
[2023-04-04 22:22] LABS: NT-Pro-B-Type Natriuretic Pept 475 pg/mL; Partial Thromboplastin Time 26.3 sec (22.0-30.0); Prothrombin Time 10.5 sec (9.0-12.0)
[2023-04-04] MEDS ORDERED: HYDROmorphone 1 MG/ML 1 ML SYRINGE IVP STA (23:14)
[2023-04-04] MEDS ORDERED: NALOXONE 0.4 MG/ML 1 ML VIAL IV PRN (23:21)
--- NOTE | 2023-04-04 23:21 | ED ---
Chest Pain HPI - General Chief Complaint: Chest Pain Stated Complaint: Chest Pain Time Seen by Provider: 04/04/23 21:05 Source: patient Mode of arrival: wheelchair Limitations: no limitations - History of Present Illness Initial Comments: 82-year-old female past history of A. fib on Eliquis, pacemaker placement, coronary artery disease who presents to the emergency room reporting chest pain. States it started 2 hours prior to hospital arrival. Described as a substernal pressure with associated shortness of breath. Patient does have oxygen and is supposed to wear at however states that she normally does not. She denies fevers, chills or cough. Admits to nausea without vomiting. The pain goes straight through to her back. She denies a history of DVT or PE. No calf pain or swelling. Does have some lower extremity edema. Unsure of her last stress testing. Did not attempt to take anything at home for her pain. No other alleviating, precipitating or modifying factors - Related Data Home Medications Medication Instructions Recorded Confirmed amLODIPine [Norvasc] 5 mg PO DAILY 04/09/18 02/17/23 sitaGLIPtin [Januvia] 100 mg PO DAILY 04/09/18 02/17/23 Montelukast [Singulair] 10 mg PO DAILY 03/28/19 02/17/23 Atorvastatin [Lipitor] 40 mg PO DAILY 04/09/19 02/17/23 Metoprolol Succinate [Toprol XL] 50 mg PO DAILY 09/16/20 02/17/23 Apixaban [Eliquis] 5 mg PO BID 09/04/22 02/17/23 Gabapentin 300 mg PO BID 09/04/22 02/17/23 HYDROcodone/APAP 7.5-325MG [[place] 1 tab PO Q6H PRN 09/04/22 02/17/23 7.5-325] Insulin Glargine,Hum.rec.anlog 10 units SQ DAILY 09/04/22 02/17/23 [Lantus Solostar Pen] Tolterodine Tartrate [Tolterodine 4 mg PO DAILY 10/16/22 02/17/23 Tartrate ER] Albuterol Nebulized [Ventolin 2.5 mg INHALATION RT-QID 12/30/22 02/17/23 Nebulized] Budesonide [Pulmicort] 0.5 mg INHALATION RT-BID 12/30/22 02/17/23 Omeprazole 40 mg PO DAILY 12/30/22 02/17/23 methocarbamoL [Robaxin] 500 mg PO Q6H PRN 12/30/22 02/17/23 Benzonatate [Tessalon Perle] 200 mg PO TID PRN 01/13/23 02/17/23 Cyclobenzaprine [Flexeril] 10 mg PO BID PRN 02/17/23 02/17/23 glipiZIDE XL [Glucotrol Xl] 10 mg PO DAILY 02/17/23 02/17/23 Previous Rx's Medication Instructions Recorded Furosemide [Lasix] 40 mg PO DAILY #30 tab 09/06/22 hydrALAZINE HCL [Apresoline] 25 mg PO BID #60 tab 09/06/22 Clopidogrel [Plavix] 75 mg PO DAILY 30 Days #30 tab 01/05/23 Losartan [Cozaar] 25 mg PO DAILY 30 Days #30 tab 01/05/23 Ascorbic Acid [Vitamin C] 1,000 mg PO DAILY #60 tab 01/15/23 Aspirin 325 mg PO DAILY #30 tab 01/15/23 Nitroglycerin Sl Tabs [Nitrostat] 0.4 mg SUBLINGUAL Q5M PRN #20 tab 01/15/23 Zinc Sulfate [Orazinc] 220 mg PO DAILY 14 Days #14 cap 01/15/23 Lidocaine 5% Patch [Lidoderm 5% 1 patch TOPICAL DAILY PRN #7 patch 02/15/23 Patch] Allergies Allergy/AdvReac Type Severity Reaction Status Date / Time tetracycline Allergy Unknown Verified 04/04/23 21:04 fentanyl AdvReac "IN Verified 04/04/23 21:04 ANOTHER PLANET, DIDNT KNOW WHERE SHE WAS" morphine AdvReac Nausea & Verified 04/04/23 21:04 Vomiting Review of Systems ROS Statement: Those systems with pertinent positive or pertinent negative responses have been documented in the HPI. ROS Other: All systems not noted in ROS Statement are negative. Past Medical History Past Medical History: Atrial Fibrillation, Chest Pain / Angina, Diabetes Mellitus, Hyperlipidemia, Hypertension, Osteoarthritis (OA), Pneumonia Additional Past Medical History / Comment(s): Paroxysmal Afib, POST OP INFECTION AFTER BACK SURGERY, CHRONIC BACK PAIN FROM T8 FX, CHRONIC PERIPHERAL LEG EDEMA,R humerus fracture. History of Any Multi-Drug Resistant Organisms: None Reported Past Surgical History: Back Surgery, Cholecystectomy, Heart Catheterization With Stent, Orthopedic Surgery, Pacemaker Additional Past Surgical History / Comment(s): 2015 LUMBAR SURGERY, FX NOSE REPAIR, BILATERAL CATARACT SURGERY, R WRIST CARPAL TUNNEL SURGERY, kyphoplasty T8 ON 06/26/16 AND ONE BEFORE. Pacemaker placed 01/06/2023 Past Anesthesia/Blood Transfusion Reactions: No Reported Reaction Additional Past Anesthesia/Blood Transfusion Reaction / Comment(s): NEVER HAD A BLOOD TRANSFUSION. Date of Last Stent Placement:: 01/01/23 Type of Cardiac Device: Permanent Pacemaker Device Placement Date:: 12/30/22 Past Psychological History: No Psychological Hx Reported Smoking Status: Never smoker Past Alcohol Use History: None Reported Past Drug Use History: None Reported - Past Family History Father Family Medical History: Myocardial Infarction ([place]) Additional Family Medical History / Comment(s): FATHER AT AGE 52 OF AN [place] Mother Additional Family Medical History / Comment(s): MOTHER AT AGE 89 OF CELEBREX PROBLEM. General Exam Limitations: no limitations General appearance: alert, in no apparent distress Head exam: Present: atraumatic, normocephalic, normal inspection Eye exam: Present: normal appearance, PERRL, EOMI. Absent: scleral icterus, conjunctival injection, periorbital swelling ENT exam: Present: normal exam, mucous membranes moist Neck exam: Present: normal inspection. Absent: tenderness, meningismus, lymphadenopathy Respiratory exam: Present: normal lung sounds bilaterally, other (Tachypnea). Absent: wheezes, rales, rhonchi, stridor Cardiovascular Exam: Present: normal rhythm, tachycardia, normal heart sounds. Absent: systolic murmur, diastolic murmur, rubs, gallop, clicks GI/Abdominal exam: Present: soft, normal bowel sounds. Absent: distended, tenderness, guarding, rebound, rigid Extremities exam: Present: normal inspection, full ROM, normal capillary refill. Absent: tenderness, pedal edema, joint swelling, calf tenderness Back exam: Present: normal inspection Neurological exam: Present: alert, oriented X3, CN II-XII intact Psychiatric exam: Present: normal affect, normal mood Skin exam: Present: warm, dry, intact, normal color. Absent: rash Course Vital Signs 04/04/23 04/04/23 04/05/23 21:02 23:00 00:00 Temperature 98.3 F 98.7 F Pulse Rate 110 H 84 89 Respiratory 26 H 16 16 Rate Blood Pressure 133/71 114/74 117/65 O2 Sat by Pulse 91 L 94 L 94 L Oximetry 04/05/23 04/05/23 04/05/23 01:00 02:00 06:01 Temperature Pulse Rate 98 88 77 Respiratory 16 16 16 Rate Blood Pressure 122/78 114/96 108/70 O2 Sat by Pulse 94 L 94 L 95 Oximetry Chest Pain MDM - MDM Was pt. sent in by a medical professional or institution (, PA, COLLECTOR, urgent care, hospital, or alf...) When possible be specific @ -No Did you speak to anyone other than the patient for history (EMS, parent, family, police, friend...)? What history was obtained from this source @ -Patient's daughter does provide history Did you review nursing and triage notes (agree or disagree)? Why? @ -I reviewed and agree with nursing and triage notes Were old charts reviewed (outside hosp., previous admission, EMS record, old EKG, old radiological studies, urgent care reports/EKG's, alf records)? Report findings @ -I reviewed patient's ED visit from March 05 Differential Diagnosis (chest pain, altered mental status, abdominal pain women, abdominal pain men, vaginal bleeding, weakness, fever, dyspnea, syncope, headache, dizziness, GI bleed, back pain, seizure, CVA, palpatations, mental health, musculoskeletal)? @ -Differential Chest Pain: Stable Angina, Unstable Angina, STEMI, NSTEMI Aortic Dissection, Pneumothorax, Musculoskeletal, Esophageal Spasm GERD, Cholecystitis, Pancreatitis, Zoster, this is not meant to be an all-inclusive list. EKG interpreted by me (3pts min.). @ -Yes and demonstrates A. fib with rate of 101. QRS 94. QTC of 389. No acute ST segment elevations or depressions. One PVC X-rays interpreted by me (1pt min.). @ -Yes and demonstrates no acute process CT interpreted by me (1pt min.). @ -None done U/S interpreted by me (1pt. min.). @ -None done What testing was considered but not performed or refused? (CT, X-rays, U/S, labs)? Why? @ -None What meds were considered but not given or refused? Why? @ -None Did you discuss the management of the patient with other professionals (professionals i.e. Dr., PA, COLLECTOR, lab, RT, psych nurse, social work lecturer, machinist linotype, teacher, mechanical engineering officer, telehealth case manager)? Give summary @ -Spoke with Flores from [facility] who agreed to admission Was smoking cessation discussed for >3mins.? @ -No Was critical care preformed (if so, how long)? @ -No Were there social determinants of health that impacted care today? How? (Homelessness, low income, unemployed, alcoholism, drug addiction, transportation, low edu. Level, literacy, decrease access to med. care, skilled nursing, rehab)? @ -No Was there de-escalation of care discussed even if they declined (Discuss DNR or withdrawal of care, Hospice)? DNR status @ -No What co-morbidities impacted this encounter? (DM, HTN, Smoking, COPD, CAD, Cancer, CVA, ARF, Chemo, Hep., AIDS, mental health diagnosis, sleep apnea, morbid obesity)? @ -A. fib, coronary artery disease Was patient admitted / discharged? Hospital course, mention meds given and route, prescriptions, significant lab abnormalities, going to OR and other pertinent info. @ -Upon arrival patient was placed into room trauma 1. A thorough history of physical exam was performed. Patient placed on continuous pulse ox and cardiac monitoring. 12-lead EKG was obtained. IV is established and laboratory studies are conducted. Patient was given nitro paste and reevaluated. States that it did not help her symptoms at all. She was then given 1 mg of Dilaudid. Trop onin is undetectable. Chest x-ray demonstrates no acute process. Discuss results with the patient and his symptoms did improve. I did recommend admission in order to trend her troponins and have cardiology evaluate the patient due to her history of cardiac disease. Patient was agreeable to this plan. Called and spoke with Flores from [facility] who agreed to admit the patient. Undiagnosed new problem with uncertain prognosis? @ -Yes Drug Therapy requiring intensive monitoring for toxicity (Heparin, Nitro, Insulin, Cardizem)? @ -No Were any procedures done? @ -No Diagnosis/symptom? @ -Acute chest pain, history of atherosclerotic coronary artery disease Acute, or Chronic, or Acute on Chronic? @ -Acute Uncomplicated (without systemic symptoms) or Complicated (systemic symptoms)? @ -Complicated Side effects of treatment? @ -Drug reaction Exacerbation, Progression, or Severe Exacerbation? @ -No Poses a threat to life or bodily function? How? (Chest pain, [place], [place], pneumonia, PE, COPD, DKA, ARF, appy, cholecystitis, CVA, Diverticulitis, Homicidal, Suicidal, threat to staff... and all critical care pts) @ -Yes patient is having active chest pain and has history of coronary disease Disposition Clinical Impression: Chest pain, Acute respiratory insufficiency, A-fib Disposition: ADMITTED IP TO THIS HOSP Condition: Stable Is patient prescribed a controlled substance at d/c from ED?: No Time of Disposition: 23:21 Decision to Admit Reason: Admit from EC Decision Date: 04/04/23 Decision Time: 23:21
[2023-04-05 06:17] LABS: African American GFR (CKD) 69 (>60 ml/min/1.73 sqM); Anion Gap 5 mmol/L; Blood Urea Nitrogen 17 mg/dL (7-17); Calcium 9.2 mg/dL (8.4-10.2); Carbon Dioxide 30 mmol/L (22-30); Chloride 105 mmol/L (98-107); Glucose 126 mg/dL (74-99); Non-African American GFR(CKD) 60 (>60 ml/min/1.73 sqM); Potassium 3.9 mmol/L (3.5-5.1); Sodium 140 mmol/L (137-145)
[2023-04-05 06:19] LABS: Basophils % (A) 0 %; Eosinophils # (A) 0.2 k/uL (0-0.7); Eosinophils % (A) 3 %; HCT 36.7 % (34.0-46.0); HGB 11.5 gm/dL (11.4-16.0); Hypochromasia Slight; Lymphocytes # (A) 0.8 k/uL (1.0-4.8); Lymphocytes % (A) 15 %; MCH 31.4 pg (25.0-35.0); MCHC 31.4 g/dL (31.0-37.0); Macrocytosis Slight; Monocytes # (A) 0.3 k/uL (0-1.0); Monocytes % (A) 6 %; Neutrophils # (A) 3.9 k/uL (1.3-7.7); Neutrophils % (A) 74 %; Platelet Count 237 k/uL (150-450); RBC 3.68 m/uL (3.80-5.40); RDW 15.1 % (11.5-15.5); WBC 5.3 k/uL (3.8-10.6)
--- NOTE | 2023-04-05 10:48 | P.CRDCN ---
History of Present Illness Consult date: 04/05/23 Consult reason: chest pain Chief complaint: back and chest pains History of present illness: History of present illness: Patient is a pleasant 82-year-old female with significant past medical history of type 2 diabetes, hypertension, hyperlipidemia, paroxysmal atrial fibrillation status post cardioversion, CAD status post PCI mid LAD 12/30/22, sick sinus syndrome status post pacemaker placement 12/2022 who presented to the emergency department with complaints of chest pain and back pain. She follows with Dr. Cuevas. She reports that she developed back pain around 7 PM last night that then radiated to undergo her left breast, this was occurring at rest. She denies any recent illness, fever, chills. Denies any injury or strain. Labs reviewed troponin negative 2, BNP 475, creatinine 0.91, WBC 5.3, hemoglobin 11.5. She had a prior echo limited X with ejection fraction 5560%, no pericardial effusion. She does report that the pain in her back is more chronic however pain under the left breast is new. Left chest is tender on palpation. No change in pain with nitro. EKG shows atrial fibrillation, 101 bpm, nonspecific ST and T- wave abnormality. Chest X-ray with no acute pulmonary process. REVIEW OF SYSTEMS: No fever or chills. No cough or expectoration. No diaphoresis. Patient denies headache, dizziness, blurred vision, double vision. Patient denies any stomach discomfort. No nausea, vomiting. No hematochezia. No hematemesis. Denies any black stools or blood in his stools. Denies dysuria or hematuria. No muscle weakness or numbness. No chest pain or pressure. PHYSICAL EXAMINATION: This is a 82-year-old female, she appears uncomfortable in pain resting in bed. HEENT: Head is atraumatic, normocephalic. Pupils are equal, round. Sclerae anicteric. Conjunctivae are clear. Mucous membranes of the mouth are moist. Neck is supple. There is no jugular venous distention. No carotid bruit is heard. CHEST EXAMINATION: Lungs are clear to auscultation. No chest wall with reproducible chest pain. HEART EXAMINATION: Irregular rate and rhythm. S1, S2 heard. No murmurs, gallops or rub. ABDOMEN: Soft, nontender. Bowel sounds are heard. No organomegaly noted. EXTREMITIES: 2+ peripheral pulses with trace peripheral edema and no calf tenderness noted. NEUROLOGIC EXAMINATION: Patient is awake, alert and oriented x3. IMPRESSION AND PLAN: CAD status post PCI of the LAD 01/01/23 Sick sinus syndrome status post pacemaker placement 01/04/23 Chest pain, reproducible on exam Hypertension Hyperlipidemia Paroxysmal atrial fibrillation Diabetes type 2 Back pain, history of multiple surgeries and kyphoplasty PLAN: Chest pain is currently reproducible, troponins negative x2. Recommend pain control for back pain. Continue with Plavix and Eliquis. We will check echocardiogram to evaluate heart function and structure. If echo is stable okay to discharge from cardiology standpoint with outpatient follow-up in 1 week. I am dictating on behalf of Dr. Rome Marks's history/physical and assessment/plan. Past Medical History Past Medical History: Atrial Fibrillation, Chest Pain / Angina, Diabetes Mellitus, Hyperlipidemia, Hypertension, Osteoarthritis (OA), Pneumonia Additional Past Medical History / Comment(s): Paroxysmal Afib, POST OP INFECTION AFTER BACK SURGERY, CHRONIC BACK PAIN FROM T8 FX, CHRONIC PERIPHERAL LEG EDEMA,R humerus fracture. History of Any Multi-Drug Resistant Organisms: None Reported Past Surgical History: Back Surgery, Cholecystectomy, Heart Catheterization With Stent, Orthopedic Surgery, Pacemaker Additional Past Surgical History / Comment(s): 2015 LUMBAR SURGERY, FX NOSE REPAIR, BILATERAL CATARACT SURGERY, R WRIST CARPAL TUNNEL SURGERY, kyphoplasty T8 ON 06/26/16 AND ONE BEFORE. Pacemaker placed 01/06/2023 Past Anesthesia/Blood Transfusion Reactions: No Reported Reaction Additional Past Anesthesia/Blood Transfusion Reaction / Comment(s): NEVER HAD A BLOOD TRANSFUSION. Date of Last Stent Placement:: 01/01/23 Type of Cardiac Device: Permanent Pacemaker Device Placement Date:: 12/30/22 Past Psychological History: No Psychological Hx Reported Smoking Status: Never smoker Past Alcohol Use History: None Reported Past Drug Use History: None Reported - Past Family History Father Family Medical History: Myocardial Infarction ([place]) Additional Family Medical History / Comment(s): FATHER AT AGE 52 OF AN [place] Mother Additional Family Medical History / Comment(s): MOTHER AT AGE 89 OF CELEBREX PROBLEM. Medications and Allergies Home Medications Medication Instructions Recorded Confirmed Type amLODIPine [Norvasc] 5 mg PO DAILY 04/09/18 02/17/23 History sitaGLIPtin [Januvia] 100 mg PO DAILY 04/09/18 02/17/23 History Montelukast [Singulair] 10 mg PO DAILY 03/28/19 02/17/23 History Atorvastatin [Lipitor] 40 mg PO DAILY 04/09/19 02/17/23 History Metoprolol Succinate [Toprol XL] 50 mg PO DAILY 09/16/20 02/17/23 History Apixaban [Eliquis] 5 mg PO BID 09/04/22 02/17/23 History Gabapentin 300 mg PO BID 09/04/22 02/17/23 History HYDROcodone/APAP 7.5-325MG [[place] 1 tab PO Q6H PRN 09/04/22 02/17/23 History 7.5-325] Insulin Glargine,Hum.rec.anlog 10 units SQ DAILY 09/04/22 02/17/23 History [Lantus Solostar Pen] Furosemide [Lasix] 40 mg PO DAILY #30 tab 09/06/22 02/17/23 Rx hydrALAZINE HCL [Apresoline] 25 mg PO BID #60 tab 09/06/22 02/17/23 Rx Tolterodine Tartrate [Tolterodine 4 mg PO DAILY 10/16/22 02/17/23 History Tartrate ER] Albuterol Nebulized [Ventolin 2.5 mg INHALATION RT-QID 12/30/22 02/17/23 History Nebulized] Budesonide [Pulmicort] 0.5 mg INHALATION RT-BID 12/30/22 02/17/23 History Omeprazole 40 mg PO DAILY 12/30/22 02/17/23 History methocarbamoL [Robaxin] 500 mg PO Q6H PRN 12/30/22 02/17/23 History Clopidogrel [Plavix] 75 mg PO DAILY 30 Days #30 tab 01/05/23 02/17/23 Rx Losartan [Cozaar] 25 mg PO DAILY 30 Days #30 tab 01/05/23 02/17/23 Rx Benzonatate [Tessalon [place]] 200 mg PO TID PRN 01/13/23 02/17/23 History Ascorbic Acid [Vitamin C] 1,000 mg PO DAILY #60 tab 01/15/23 02/17/23 Rx Aspirin 325 mg PO DAILY #30 tab 01/15/23 02/17/23 Rx Nitroglycerin Sl Tabs [Nitrostat] 0.4 mg SUBLINGUAL Q5M PRN #20 tab 01/15/23 02/17/23 Rx Zinc Sulfate [Orazinc] 220 mg PO DAILY 14 Days #14 cap 01/15/23 02/17/23 Rx Lidocaine 5% Patch [Lidoderm 5% 1 patch TOPICAL DAILY PRN #7 patch 02/15/23 02/17/23 Rx Patch] Cyclobenzaprine [Flexeril] 10 mg PO BID PRN 02/17/23 02/17/23 History glipiZIDE XL [Glucotrol Xl] 10 mg PO DAILY 02/17/23 02/17/23 History Allergies Allergy/AdvReac Type Severity Reaction Status Date / Time tetracycline Allergy Unknown Verified 04/04/23 21:04 fentanyl AdvReac "IN Verified 04/04/23 21:04 ANOTHER PLANET, DIDNT KNOW WHERE SHE WAS" morphine AdvReac Nausea & Verified 04/04/23 21:04 Vomiting Physical Exam Vitals: Vital Signs Temp Pulse Resp BP Pulse Ox 04/05/23 06:01 77 16 108/70 95 04/05/23 02:00 88 16 114/96 94 L 04/05/23 01:00 98 16 122/78 94 L 04/05/23 00:00 98.7 F 89 16 117/65 94 L 04/04/23 23:00 84 16 114/74 94 L 04/04/23 21:02 98.3 F 110 H 26 H 133/71 91 L Intake and Output 04/04/23 04/05/23 04/05/23 22:59 06:59 14:59 Other: Weight 123.831 kg Results 04/05/23 05:38 04/05/23 05:38 Cardiac Enzymes 04/04/23 04/04/23 04/05/23 Range/Units 21:38 21:38 00:09 AST 30 (14-36) U/L Troponin I <0.012 <0.012 (0.000-0.034) ng/mL Coagulation 04/04/23 Range/Units 21:38 PT 10.5 (9.0-12.0) sec APTT 26.3 (22.0-30.0) sec CBC 04/04/23 04/05/23 Range/Units 21:38 05:38 WBC 5.4 5.3 (3.8-10.6) k/uL RBC 3.76 L 3.68 L (3.80-5.40) m/uL Hgb 11.9 11.5 (11.4-16.0) gm/dL Hct 37.0 36.7 (34.0-46.0) % Plt Count 229 237 (150-450) k/uL Comprehensive Metabolic Panel 04/04/23 04/05/23 Range/Units 21:38 05:38 Sodium 137 140 (137-145) mmol/L Potassium 4.8 3.9 (3.5-5.1) mmol/L Chloride 103 105 (98-107) mmol/L Carbon Dioxide 28 30 (22-30) mmol/L BUN 18 H 17 (7-17) mg/dL Creatinine 1.00 0.91 (0.52-1.04) mg/dL Glucose 146 H 126 H (74-99) mg/dL Calcium 9.3 9.2 (8.4-10.2) mg/dL AST 30 (14-36) U/L ALT 15 (4-34) U/L Alkaline Phosphatase 139 H (38-126) U/L Total Protein 7.2 (6.3-8.2) g/dL Albumin 4.2 (3.5-5.0) g/dL Current Medications Generic Name Dose Route Start Last Admin Trade Name Freq PRN Reason Stop Dose Admin Naloxone HCl 0.2 mg 04/04/23 23:21 Naloxone 0.4 Mg/Ml 1 Ml Vial IV Q2M PRN Opioid Reversal Intake and Output 04/04/23 04/05/23 04/05/23 22:59 06:59 14:59 Other: Weight 123.831 kg 04/05/23 05:38 04/05/23 05:38
[2023-04-05] MEDS ORDERED: ONDANSETRON 4 MG/2 ML VIAL IVP PRN (11:01)
[2023-04-05] MEDS: HYDROmorphone 0.5 MG/0.5 ML SYRINGE IVP PRN ×2 (11:23→17:15)
[2023-04-05] MEDS: CLOPIDOGREL 75 MG TAB PO SCH (11:24)
--- NOTE | 2023-04-05 11:33 | HP ---
HISTORY AND PHYSICAL CHIEF COMPLAINT: Chest and back pain. HISTORY OF PRESENT ILLNESS: This is an 82-year-old woman with a past medical history of multiple medical problems, who has had a recent PCI of the LAD, was complaining of severe back pain in the upper midback and radiating to the front with spasms and also some chest pain. Cardiology saw the patient. Chest pain was thought to be reproducible. The patient is being evaluated for musculoskeletal issues as well. There is no history of any fever, rigors, or chills. PAST MEDICAL HISTORY: Reviewed and include atrial fibrillation, diabetes, CAD. Rest of the chart is also reviewed. HOME MEDICATIONS: Reviewed and include Januvia. Doses and rest of medications noted. ALLERGIES: Reviewed and include tetracycline. FAMILY HISTORY: History of myocardial infarction in the family. SOCIAL HISTORY: No history of smoking or alcohol. REVIEW OF SYSTEMS: A 14-point review of systems is negative except as mentioned. PHYSICAL EXAMINATION: VITAL SIGNS: Pulse is 89, blood pressure 117/65, respirations 16. HEENT: Conjunctivae normal. NECK: No jugular venous distention. CARDIOVASCULAR: S1, S2. RESPIRATIONS: A few scattered rhonchi. ABDOMEN: Soft, obese. LEGS: No edema. NERVOUS SYSTEM: No focal deficits. SKIN: No ulcer, rash, or bleeding. JOINTS: No active deforming arthropathy. Examination of the back shows some tenderness present. Movements are painful. LABORATORY DATA: Reviewed. ASSESSMENT: 1. Severe low back pain and possible degenerative joint disease. 2. Chest pain, possibly musculoskeletal. 3. History of coronary artery disease, recent stent to the left anterior descending. 4. Atrial fibrillation. 5. Diabetes mellitus, type 2. 6. Hypertension. 7. Multiple medical issues. RECOMMENDATIONS: This 82-year-old woman presented with multiple complex medical issues. We will monitor the patient closely. The exact nature of the pain is unknown at this time. Chest x- ray, which I reviewed personally, did not show any acute abnormality. I would recommend symptomatic treatment with treatment of the pain. Orthopedic evaluation, Cardiology consultation. There is no evidence of any infection per se, but I will recommend UA with micro and COVID testing as well. Otherwise, resume the home medications once they are confirmed. Prognosis is guarded. Further recommendations to follow. MMODL / IJN: [id number] /
[2023-04-05] MEDS: ALBUTEROL NEBULIZED 2.5 MG/3 ML INHALATION SCH ×3 (11:49→19:34)
--- NOTE | 2023-04-05 12:05 | XR ---
EXAMINATION TYPE: XR lumbar spine 2 or 3V DATE OF EXAM: 04/05/2023 COMPARISON: None HISTORY: Right flank contusion, chronic back pain TECHNIQUE: 3 view lumbar spine FINDINGS: The previously 5 lumbar type vertebral bodies. The T12 ribs appear to be rudimentary. Posts urgical changes are at the L4-5 disc space. There is some mild L3 compression without posterior wall displacement. Some minimal superior endplate compression may be present at L1. These compression changes were present on prior CT exam. IMPRESSION: 1. Old mild compression deformities L1 and L3. 2. Postsurgical disc change L4-5.
[2023-04-05] MEDS: APIXABAN 5 MG TAB PO SCH ×2 (12:16→20:57)
--- NOTE | 2023-04-05 12:24 | P.CNOR ---
History of Present Illness - HPI Consult date: 04/05/23 Consult reason: low back pain History of present illness: Patient is a 82-year-old female with primary complaints of low back pain and radicular to the left side. Patient has a long history of low back pain for the past 35 years. She says that she also had surgery [address] Stroud in which she underwent spinal fusion. She says that helped for about a month but then she can continue to have further pain beyond that. She says she's had multiple fractures in her back in the past and has had cement placed in her bones as well. She says that has some benefit at those times but that is not the current pain that she is experiencing. She has pain is primarily at the left lowers side of her back. She does not have lower extremity pain. She denies any numbness tingling or radicular symptoms in her lower extremities. She denies any new weakness in her lower extremities. She also has some history of cardiac issues in the last week underwent a new stent placement. She normally ambulate with walker at home. She takes regular pain medications. She denies any new changes in bowel bladder function. Denies any new numbness tingling or weakness in her lower extremities. Review of Systems As per HPI. History of prior lumbar fusion L4 5 greater than [address] Stroud at [facility]. History of multiple compression fractures in her thoracic and lumbar spine with history of kyphoplasty. No changes in the extremities with numbness tingling or weakness in her upper or lower extremities Past Medical History Past Medical History: Atrial Fibrillation, Chest Pain / Angina, Diabetes Mellitus, Hyperlipidemia, Hypertension, Osteoarthritis (OA), Pneumonia Additional Past Medical History / Comment(s): Paroxysmal Afib, POST OP INFECTION AFTER BACK SURGERY, CHRONIC BACK PAIN FROM T8 FX, CHRONIC PERIPHERAL LEG EDEMA,R humerus fracture. History of Any Multi-Drug Resistant Organisms: None Reported Past Surgical History: Back Surgery, Cholecystectomy, Heart Catheterization With Stent, Orthopedic Surgery, Pacemaker Additional Past Surgical History / Comment(s): 2015 LUMBAR SURGERY, FX NOSE REPAIR, BILATERAL CATARACT SURGERY, R WRIST CARPAL TUNNEL SURGERY, kyphoplasty T8 ON 06/26/16 AND ONE BEFORE. Pacemaker placed 01/06/2023 Past Anesthesia/Blood Transfusion Reactions: No Reported Reaction Additional Past Anesthesia/Blood Transfusion Reaction / Comm: NEVER HAD A BLOOD TRANSFUSION. Date of Last Stent Placement:: 01/01/23 Type of Cardiac Device: Permanent Pacemaker Device Placement Date:: 12/30/22 Past Psychological History: No Psychological Hx Reported Smoking Status: Never smoker Past Alcohol Use History: None Reported Past Drug Use History: None Reported - Past Family History Father Family Medical History: Myocardial Infarction ([place]) Additional Family Medical History / Comment(s): FATHER AT AGE 52 OF AN [place] Mother Additional Family Medical History / Comment(s): MOTHER AT AGE 89 OF CELEBREX PROBLEM. Medications and Allergies Home Medications Medication Instructions Recorded Confirmed Type amLODIPine [Norvasc] 5 mg PO DAILY 04/09/18 04/05/23 History sitaGLIPtin [Januvia] 100 mg PO DAILY 04/09/18 04/05/23 History Montelukast [Singulair] 10 mg PO DAILY 03/28/19 04/05/23 History Atorvastatin [Lipitor] 40 mg PO DAILY 04/09/19 04/05/23 History Metoprolol Succinate [Toprol XL] 50 mg PO DAILY 09/16/20 04/05/23 History Apixaban [Eliquis] 5 mg PO BID 09/04/22 04/05/23 History HYDROcodone/APAP 7.5-325MG [[place] 1 tab PO Q6H PRN 09/04/22 04/05/23 History 7.5-325] Insulin Glargine,Hum.rec.anlog 10 units SQ DAILY 09/04/22 04/05/23 History [Lantus Solostar Pen] Furosemide [Lasix] 40 mg PO DAILY #30 tab 09/06/22 04/05/23 Rx hydrALAZINE HCL [Apresoline] 25 mg PO BID #60 tab 09/06/22 04/05/23 Rx Tolterodine Tartrate [Tolterodine 4 mg PO DAILY 10/16/22 04/05/23 History Tartrate ER] Albuterol Nebulized [Ventolin 2.5 mg INHALATION RT-QID 12/30/22 04/05/23 History Nebulized] Budesonide [Pulmicort] 0.5 mg INHALATION RT-BID 12/30/22 04/05/23 History Omeprazole 40 mg PO DAILY 12/30/22 04/05/23 History methocarbamoL [Robaxin] 500 mg PO Q6H PRN 12/30/22 04/05/23 History Clopidogrel [Plavix] 75 mg PO DAILY 30 Days #30 tab 01/05/23 04/05/23 Rx Losartan [Cozaar] 25 mg PO DAILY 30 Days #30 tab 01/05/23 04/05/23 Rx Ascorbic Acid [Vitamin C] 1,000 mg PO DAILY #60 tab 01/15/23 04/05/23 Rx Aspirin 325 mg PO DAILY #30 tab 01/15/23 04/05/23 Rx Cyclobenzaprine [Flexeril] 10 mg PO BID PRN 02/17/23 04/05/23 History glipiZIDE XL [Glucotrol Xl] 10 mg PO DAILY 02/17/23 04/05/23 History Gabapentin 600 mg PO BID 04/05/23 04/05/23 History Lidocaine 5% Patch [Lidoderm 5% 1 patch TRANSDERM DAILY PRN 04/05/23 04/05/23 History Patch] Nitroglycerin Sl Tabs [Nitrostat] 0.4 mg SL Q5M PRN 04/05/23 04/05/23 History Allergies Allergy/AdvReac Type Severity Reaction Status Date / Time tetracycline Allergy Unknown Verified 04/05/23 10:36 fentanyl AdvReac "IN Verified 04/05/23 10:36 ANOTHER PLANET, DIDNT KNOW WHERE SHE WAS" morphine AdvReac Nausea & Verified 04/05/23 10:36 Vomiting Physical Examination Osteopathic Statement: *. No significant issues noted on an osteopathic structural exam other than those noted in the History and Physical/Consult. - L Spine: dermatomal strength & reflexes bilateral Strength: hip flexion: 4/5 (The patient has obesity. She has global weakness but is able to move her extremities appropriately. She has sustained dorsal flexion plantar flexion and EHL at her bilateral lower extremities. She is able to lift her legs up off the bed but does so with difficulty. She is no pain with internal r) Strength: hip extension: 4/5 (No pain with interelectrode rotation of her hips. She does not have a focal neurologic of Marilyn there is some generalized weakness.) Strength: ankle dorsiflexion: 5/5 (At her back she has well-healed midline incision. She has diffusely see pattern over her skin due to chronic heating pad use. There is no erythema there is no swelling there is no evidence of infection. She is nontender over the midline and over her flanks.) Results - Labs Labs: Abnormal Lab Results - Last 24 Hours (Table) 04/04/23 04/04/23 04/05/23 Range/Units 21:38 21:38 05:38 RBC 3.76 L 3.68 L (3.80-5.40) m/uL Lymphocytes # 0.7 L 0.8 L (1.0-4.8) k/uL BUN 18 H (7-17) mg/dL Glucose 146 H (74-99) mg/dL Alkaline Phosphatase 139 H (38-126) U/L 04/05/23 Range/Units 05:38 RBC (3.80-5.40) m/uL Lymphocytes # (1.0-4.8) k/uL BUN (7-17) mg/dL Glucose 126 H (74-99) mg/dL Alkaline Phosphatase (38-126) U/L H & H 04/04/23 04/05/23 Range/Units 21:38 05:38 Hgb 11.9 11.5 (11.4-16.0) gm/dL Hct 37.0 36.7 (34.0-46.0) % Coagulation 04/04/23 Range/Units 21:38 INR 1.0 (<1.2) Result Diagrams: 04/05/23 05:38 04/05/23 05:38 - Diagnostic results Lumbar AP/lateral x-ray: report reviewed (There is also evidence of prior kyphoplasty bone cement at T10 and T9. Again in reference to prior images from August 2020 this was present with bone cement at T10 and T9 and T8 and T6. This appears stable. I do not see new fractures.), image reviewed (New x-rays of her lumbar spine reviewed. She has evidence of prior interbody fusion at L4 5. The interbody device is somewhat posterior but appears to be stable and chronic in its position. She has evidence of compression deformity at L3 and L1. These were present on prior images from Aug 2020) Assessment and Plan Assessment: Acute on chronic low back pain No specific radiculopathy or neurologic change in her lower extremities History of prior fusion L4 [address] Stroud approximately 10 years ago History of prior compression fractures L3 and L1 which were present in 2020 and appears stable History of kyphoplasty is at T6 T8 T9 and T10 which appears stable Difficulty ambulating Recent cardiac stent Obesity and deconditioning Plan: Acute on chronic low back pain No specific radiculopathy or neurologic change in her lower extremities History of prior fusion L4 [address] Stroud approximately 10 years ago History of prior compression fractures L3 and L1 which were present in 2020 and appears stable History of kyphoplasty is at T6 T8 T9 and T10 which appears stable Difficulty ambulating Recent cardiac stent Obesity and deconditioning The patient has long history of low back pain and seems have an exacerbation of her lumbar issues at this point. She is somewhat obese and has some global deconditioning and could do better with physical therapy. She has a number of chronic compression deformities but I do not see evidence of new fracture. I do not think that she has no instability at her low back. At this point she is not having any specific radiculopathy and I don't think we need any acute new imaging at this point. She should try to progress her mobility with her physical therapy. She does not need to use a brace at this point unless this for comfort. Her pain could have some benefit with short course of steroid medication if he would be okay with medicine and cardio service. From a spine surgery standpoint I think that we can follow her up an as-needed basis and she should continue with her pain management regimen for her pain management physician.
[2023-04-05] MEDS: HYDROcodone/APAP 7.5-325MG 1 EACH TAB PO PRN ×2 (13:30→21:01)
[2023-04-05] MEDS: CYCLOBENZAPRINE 10 MG TAB PO PRN (13:30)
[2023-04-05] MEDS: predniSONE 10 MG TAB PO SCH ×2 (15:00→20:57)
[2023-04-05] MEDS: methocarbamoL 500 MG TAB PO PRN (15:00)
[2023-04-05 16:12] LABS: Appearance,Urine Clear (Clear); Bilirubin,Urine Negative (Negative); Blood,Urine Negative (Negative); Color,Urine Light Yellow; Glucose,Urine (UA) Negative (Negative); Ketones,Urine Trace (Negative); Leukocyte Esterase,Urine Negative (Negative); Nitrite,Urine Negative (Negative); Protein,Urine Negative (Negative); Specific Gravity,Urine 1.013 (1.001-1.035); Urobilinogen,Urine <2.0 mg/dL (<2.0)
--- NOTE | 2023-04-05 17:42 | CA ---
Transthoracic Echo Report Name: Hortencia Mcpherson Age: 82 Gender: F : 1940 Exam Date: 04/05/2023 09:04 Exam Location: [facility] Ht (in): 64 Wt (lb): 273 Ordering Physician: Rome Marks DO ([email or web address]) Attending/Referring Phys: Principal Process Engineer Jessica Peñaloza RDCS Procedure CPT: Indications: re: CP Cardiac Hx: CAD, pacemaker Technical Quality: Fair Contrast 1: Total Dose (mL): Contrast 2: Total Dose (mL): MEASUREMENTS (Male / Female) Normal Values 2D ECHO LV Diastolic Diameter PLAX 4.0 cm 4.2 - 5.9 / 3.9 - 5.3 cm LV Systolic Diameter PLAX 2.7 cm IVS Diastolic Thickness 1.2 cm 0.6 - 1.0 / 0.6 - 0.9 cm LVPW Diastolic Thickness 1.2 cm 0.6 - 1.0 / 0.6 - 0.9 cm LV Relative Wall Thickness 0.6 RV Internal Dim ED PLAX 3.1 cm LA Systolic Diameter LX 3.5 cm 3.0 - 4.0 / 2.7 - 3.8 cm LV Diastolic Volume MOD 4C 67.3 cm??? LV Systolic Volume MOD 4C 37.1 cm??? LV Ejection Fraction MOD 4C 44.9 % LV Cardiac Index MOD 4C 1103.1 cm???/min???m??? LV Diastolic Length 4C 7.7 cm LV Systolic Length 4C 6.7 cm LV Diastolic Volume MOD 2C 49.8 cm??? LV Systolic Volume MOD 2C 26.4 cm??? LV Ejection Fraction MOD 2C 46.9 % LV Cardiac Index MOD 2C 852.8 cm???/min???m??? LV Diastolic Length 2C 7.3 cm LV Systolic Length 2C 6.6 cm LA Volume 49.6 cm??? 18 - 58 / 22 - 52 cm??? M-MODE Aortic Root Diameter MM 2.8 cm MV E Point Septal Separation 0.4 cm AV Cusp Separation MM 1.7 cm DOPPLER AV Peak Velocity 156.3 cm/s AV Peak Gradient 9.8 mmHg AI Peak Velocity 401.0 cm/s AI Peak Gradient 64.3 mmHg AI Pressure Half Time 750.4 ms MV Area PHT 6.5 cm??? MV Deceleration Time 106.2 ms TR Peak Velocity 284.7 cm/s TR Peak Gradient 32.4 mmHg Right Ventricular Systolic Press 37.4 mmHg FINDINGS Left Ventricle Left ventricular ejection fraction is estimated at 55 %. Left ventricular cavity size normal. Mildly increased septal wall thickness. Mildly increased posterior wall thickness. Right Ventricle Normal right ventricular size. Mild pulmonary hypertension. Right Atrium Normal right atrial size. Left Atrium Normal left atrial size. Mitral Valve Mitral valve thickened. Mitral annular calcification. Trace to mild mitral regurgitation. Aortic Valve Trileaflet aortic valve. Aortic valve sclerosis. Mild aortic regurgitation. Tricuspid Valve Structurally normal tricuspid valve. Mild tricuspid regurgitation. Pulmonic Valve Pulmonic valve not well visualized. No pulmonic regurgitation. Pericardium No pericardial or pleural effusion. Aorta Normal size aortic root and proximal ascending aorta. CONCLUSIONS Left ventricular ejection fraction 55% Mild increased left ventricular wall thickness RVSP 37 Trace to mild mitral regurgitation Mild aortic regurgitation Mild tricuspid regurgitation No pericardial effusion Previewed by: Dr. Rome Marks DO (Electronically Signed) Final Date: 05 April 2023 17:41
[2023-04-05] MEDS: BUDESONIDE 0.5 MG/2 ML NEBU INHALATION SCH (19:34)
[2023-04-05] MEDS: PANTOPRAZOLE 40 MG/10 ML VIAL IVP SCH (20:57)
[2023-04-05] MEDS: hydrALAZINE HCL 25 MG TAB PO SCH (20:57)
[2023-04-05] MEDS: GABAPENTIN 300 MG CAP PO SCH (20:57)
[2023-04-06] MEDS: HYDROcodone/APAP 7.5-325MG 1 EACH TAB PO PRN ×2 (02:48→12:33)
[2023-04-06 06:23] LABS: Glucose,Whole Blood 194 mg/dL (70-110)
[2023-04-06] MEDS: HYDROmorphone 0.5 MG/0.5 ML SYRINGE IVP PRN ×3 (08:17→23:35)
[2023-04-06] MEDS: CYCLOBENZAPRINE 10 MG TAB PO PRN (08:17)
[2023-04-06] MEDS: INSULIN DETEMIR (LEVEMIR) 100 UNIT/ML SYR SQ SCH (08:18)
[2023-04-06] MEDS: ATORVASTATIN 40 MG TAB PO SCH (08:19)
[2023-04-06] MEDS: amLODIPine 5 MG TAB PO SCH (08:19)
[2023-04-06] MEDS: METOPROLOL SUCCINATE (ER) 50 MG TAB.ER.24H PO SCH (08:19)
[2023-04-06] MEDS: FUROSEMIDE 40 MG TAB PO SCH (08:19)
[2023-04-06] MEDS: APIXABAN 5 MG TAB PO SCH ×2 (08:19→20:30)
[2023-04-06] MEDS: LOSARTAN 25 MG TAB PO SCH (08:19)
[2023-04-06] MEDS: OXYBUTYNIN 10 MG TAB.ER.24 PO SCH (08:19)
[2023-04-06] MEDS: GABAPENTIN 300 MG CAP PO SCH ×2 (08:19→20:30)
[2023-04-06] MEDS: ASCORBIC ACID 500 MG TAB PO SCH (08:19)
[2023-04-06] MEDS: PANTOPRAZOLE 40 MG/10 ML VIAL IVP SCH ×2 (08:20→20:30)
[2023-04-06] MEDS: ASPIRIN 325 MG TAB PO SCH (08:20)
[2023-04-06] MEDS: LINAGLIPTIN 5 MG TABLET PO SCH (08:20)
[2023-04-06] MEDS: glipiZIDE 5 MG TAB PO SCH ×2 (08:20→20:30)
[2023-04-06] MEDS: CLOPIDOGREL 75 MG TAB PO SCH (08:20)
[2023-04-06] MEDS: hydrALAZINE HCL 25 MG TAB PO SCH ×2 (08:20→20:30)
[2023-04-06] MEDS: predniSONE 10 MG TAB PO SCH (08:20)
[2023-04-06] MEDS: ALBUTEROL NEBULIZED 2.5 MG/3 ML INHALATION SCH ×4 (08:51→20:43)
[2023-04-06] MEDS: BUDESONIDE 0.5 MG/2 ML NEBU INHALATION SCH ×2 (08:51→20:43)
[2023-04-06 09:28] LABS: Basophils # (A) 0.03 X 10*3/uL (0.00-0.10); Basophils % (A) 0.5 %; Eosinophils # (A) 0.01 X 10*3/uL (0.04-0.35); Eosinophils % (A) 0.2 %; HCT 34.9 % (37.2-46.3); Lymphocytes % (A) 6.3 %; MCH 30.9 pg (27.0-32.0); MCHC 31.5 d/dL (32.0-37.0); Mean Platelet Volume 10.9 FL (9.5-12.2); Monocytes # (A) 0.24 X 10*3/uL (0.20-1.00); Monocytes % (A) 3.8 %; NRBC Per 100 WBC 0 X 10*3/uL (0.00-0.01); Neutrophils % (A) 88.9 %; Platelet Count 256 X 10*3/uL (140-440); RBC 3.56 X 10*6/uL (4.10-5.20); RDW 15.1 % (11.5-14.5)
[2023-04-06 09:37] LABS: BUN/Creat Ratio 13.89 Ratio (12.00-20.00); Blood Urea Nitrogen 12.5 mg/dL (9.0-27.0); Calcium 9.6 mg/dL (8.7-10.3); Chloride 104 mmol/L (96-109); Glucose 194 mg/dL (70-110); Potassium 4.6 mmol/L (3.5-5.5); Sodium 141 mmol/L (135-145)
[2023-04-06] MEDS: methylPREDNISolone SOD SUCCI 125 MG/2 ML VIAL IV SCH ×3 (11:04→23:36)
[2023-04-06 11:37] LABS: Glucose,Whole Blood 257 mg/dL (70-110)
[2023-04-06] MEDS ORDERED: DEXTROSE 50% SYRINGE 50 ML IVP PRN ×2 (12:15)
[2023-04-06] MEDS: INSULIN ASPART (NovoLOG) 100 UNIT/ML VIAL SQ SCH ×3 (12:33→21:31)
--- NOTE | 2023-04-06 12:52 | P.PN ---
Subjective Progress Note Date: 04/06/23 History of present illness: Patient is a pleasant 82-year-old female with significant past medical history of type 2 diabetes, hypertension, hyperlipidemia, paroxysmal atrial fibrillation status post cardioversion, CAD status post PCI mid LAD 12/30/22, sick sinus syndrome status post pacemaker placement 12/2022 who presented to the emergency department with complaints of chest pain and back pain. She follows with Dr. Cuevas. She reports that she developed back pain around 7 PM last night that then radiated to undergo her left breast, this was occurring at rest. She denies any recent illness, fever, chills. Denies any injury or strain. Labs reviewed troponin negative 2, BNP 475, creatinine 0.91, WBC 5.3, hemoglobin 11.5. She had a prior echo limited with ejection fraction 5560%, no pericardial effusion. She does report that the pain in her back is more chronic however pain under the left breast is new. Left chest is tender on palpation. No change in pain with nitro. EKG shows atrial fibrillation, 101 bpm, nonspecific ST and T- wave abnormality. Chest X-ray with no acute pulmonary process. 04/06/23 She reports that her left-sided chest pain has resolved. Her back pain has improved significantly with pain medications. She is feeling better overall. Echocardiogram 04/05/23 with ejection fraction 55%, mild LVH, RVSP 37. PHYSICAL EXAMINATION: This is a 82-year-old female, she appears uncomfortable in pain resting in bed. HEENT: Head is atraumatic, normocephalic. Pupils are equal, round. Sclerae anicteric. Conjunctivae are clear. Mucous membranes of the mouth are moist. Neck is supple. There is no jugular venous distention. No carotid bruit is heard. CHEST EXAMINATION: Lungs are clear to auscultation. HEART EXAMINATION: Irregular rate and rhythm. S1, S2 heard. No murmurs, gallops or rub. ABDOMEN: Soft, nontender. Bowel sounds are heard. EXTREMITIES: 2+ peripheral pulses with trace peripheral edema and no calf tenderness noted. NEUROLOGIC EXAMINATION: Patient is awake, alert and oriented x3. IMPRESSION AND PLAN: CAD status post PCI of the LAD 01/01/23 Sick sinus syndrome status post pacemaker placement 01/04/23 Chest pain, reproducible on exam Hypertension Hyperlipidemia Paroxysmal atrial fibrillation Diabetes type 2 Back pain, history of multiple surgeries and kyphoplasty PLAN: Chest pain has resolved. Back pain has improved with pain medications. Echocardiogram is stable. Continue with Plavix and Eliquis. Okay to discharge from cardiology standpoint with outpatient follow-up in 1 week. I am dictating on behalf of Dr. Rome Marks's history/physical and assessment/plan. Objective - Vital Signs Vital signs: Vital Signs Temp 97.7 F 04/06/23 07:00 Pulse 108 H 04/06/23 09:07 Resp 18 04/06/23 07:00 BP 128/90 04/06/23 07:00 Pulse Ox 96 04/06/23 08:53 FiO2 Intake & Output 04/05/23 04/06/23 04/06/23 18:59 06:59 18:59 Intake Total 339 Balance 339 Intake: Oral 339 Other: # Voids 0 1 - Labs CBC & Chem 7: 04/06/23 06:21 04/06/23 06:21 Labs: Abnormal Lab Results - Last 24 Hours (Table) 04/05/23 04/06/23 04/06/23 Range/Units 15:52 06:21 06:21 RBC 3.56 L (4.10-5.20) X 10*6/uL Hgb 11.0 L (12.0-15.0) d/dL Hct 34.9 L (37.2-46.3) % MCV 98.0 H (80.0-97.0) FL MCHC 31.5 L (32.0-37.0) d/dL RDW 15.1 H (11.5-14.5) % Lymphocytes # 0.40 L (0.90-5.00) X 10*3/uL Eosinophils # 0.01 L (0.04-0.35) X 10*3/uL Glucose 194 H (70-110) mg/dL POC Glucose (mg/dL) (70-110) mg/dL Urine Ketones Trace H (Negative) 04/06/23 04/06/23 Range/Units 06:22 11:35 RBC (4.10-5.20) X 10*6/uL Hgb (12.0-15.0) d/dL Hct (37.2-46.3) % MCV (80.0-97.0) FL MCHC (32.0-37.0) d/dL RDW (11.5-14.5) % Lymphocytes # (0.90-5.00) X 10*3/uL Eosinophils # (0.04-0.35) X 10*3/uL Glucose (70-110) mg/dL POC Glucose (mg/dL) 194 H 257 H (70-110) mg/dL Urine Ketones (Negative)
--- NOTE | 2023-04-06 13:25 | XR ---
EXAMINATION TYPE: XR thoracic spine 2V DATE OF EXAM: 04/06/2023 COMPARISON: None HISTORY: Back pain and muscle spasm TECHNIQUE: 3 view thoracic spine FINDINGS: Vertebral plasty is present at T6 T8-9-10. Remaining vertebral levels have normal pedicles. There are 12 thoracic type vertebral bodies. There is some loss of vertebral body height at the leve l vertebral plasty. Otherwise, the vertebral body heights are preserved. Disc space narrowing T8-T10 is present. IMPRESSION: 1. Postsurgical vertebral plasty changes. 2. No acute changes evident.
[2023-04-06 16:58] LABS: Glucose,Whole Blood 281 mg/dL (70-110)
[2023-04-06] MEDS: methocarbamoL 500 MG TAB PO PRN (16:59)
[2023-04-06 21:22] LABS: Glucose,Whole Blood 322 mg/dL (70-110)
--- NOTE | 2023-04-07 04:07 | PN ---
PROGRESS NOTE DATE OF SERVICE: 04/06/2023 SUBJECTIVE: This is an 82-year-old woman, who was admitted with chest pain and back pain, is being closely monitored. No chest pain. No palpitation. Orthopedic Surgery is following the patient closely. Lumbar spine showed multiple compression fractures. No chest pain. No palpitation. OBJECTIVE: VITAL SIGNS: Pulse is 114, blood pressure 130/90, respirations 18. CHEST: Clear to auscultation. CARDIOVASCULAR: S1, S2. ABDOMEN: Soft. BACK: Some tenderness present. LABORATORY DATA: Reviewed. ASSESSMENT: 1. Severe midback pain and as well as possible degenerative joint disease. 2. Chest pain, possibly musculoskeletal. 3. History of coronary artery disease, recent stent to the left anterior descending. 4. Atrial fibrillation. 5. Diabetes mellitus, type 2. 6. Severe degenerative joint disease. 7. Hypertension. 8. Multiple medical issues. RECOMMENDATIONS: Recommend to continue current management and continue symptomatic treatment. Otherwise, at this time, I recommend pain medications. I would also recommend a course of IV steroids. Monitor blood sugars closely. Otherwise, the patient might need a small dose of insulin with sugars. Blood sugars remain high. Otherwise, see orders for further details. Repeat labs. The patient might require more than 2 nights hospital stay for evaluation and control of above-mentioned multiple medical issues. Recommend full admission. MMODL / IJN: [id number] /
[2023-04-07] MEDS: methocarbamoL 500 MG TAB PO PRN ×2 (04:29→08:29)
[2023-04-07] MEDS: methylPREDNISolone SOD SUCCI 125 MG/2 ML VIAL IV SCH (06:08)
[2023-04-07 06:11] LABS: Glucose,Whole Blood 234 mg/dL (70-110)
[2023-04-07] MEDS: HYDROmorphone 0.5 MG/0.5 ML SYRINGE IVP PRN (06:51)
[2023-04-07] MEDS: INSULIN DETEMIR (LEVEMIR) 100 UNIT/ML SYR SQ SCH (06:51)
[2023-04-07] MEDS: INSULIN ASPART (NovoLOG) 100 UNIT/ML VIAL SQ SCH (06:51)
[2023-04-07] MEDS: APIXABAN 5 MG TAB PO SCH (08:13)
[2023-04-07] MEDS: ATORVASTATIN 40 MG TAB PO SCH (08:13)
[2023-04-07] MEDS: GABAPENTIN 300 MG CAP PO SCH (08:13)
[2023-04-07] MEDS: hydrALAZINE HCL 25 MG TAB PO SCH (08:14)
[2023-04-07] MEDS: ASCORBIC ACID 500 MG TAB PO SCH (08:14)
[2023-04-07] MEDS: glipiZIDE 5 MG TAB PO SCH (08:14)
[2023-04-07] MEDS: LINAGLIPTIN 5 MG TABLET PO SCH (08:14)
[2023-04-07] MEDS: LOSARTAN 25 MG TAB PO SCH (08:14)
[2023-04-07] MEDS: amLODIPine 5 MG TAB PO SCH (08:14)
[2023-04-07] MEDS: OXYBUTYNIN 10 MG TAB.ER.24 PO SCH (08:14)
[2023-04-07] MEDS: METOPROLOL SUCCINATE (ER) 50 MG TAB.ER.24H PO SCH (08:14)
[2023-04-07] MEDS: FUROSEMIDE 40 MG TAB PO SCH (08:14)
[2023-04-07] MEDS: ASPIRIN 325 MG TAB PO SCH (08:15)
[2023-04-07] MEDS: CLOPIDOGREL 75 MG TAB PO SCH (08:15)
[2023-04-07] MEDS: PANTOPRAZOLE 40 MG/10 ML VIAL IVP SCH (08:15)
[2023-04-07 08:37] LABS: Basophils # (A) 0.01 X 10*3/uL (0.00-0.10); Basophils % (A) 0.1 %; Eosinophils # (A) 0 X 10*3/uL (0.04-0.35); Eosinophils % (A) 0 %; HGB 10.5 d/dL (12.0-15.0); Lymphocytes # (A) 0.44 X 10*3/uL (0.90-5.00); Lymphocytes % (A) 4.1 %; MCH 30.6 pg (27.0-32.0); MCHC 30.9 d/dL (32.0-37.0); MCV 99.1 FL (80.0-97.0); Mean Platelet Volume 10.9 FL (9.5-12.2); Monocytes # (A) 0.09 X 10*3/uL (0.20-1.00); Monocytes % (A) 0.8 %; NRBC Per 100 WBC 0 X 10*3/uL (0.00-0.01); Neutrophils # (A) 10.27 X 10*3/uL (1.80-7.70); Neutrophils % (A) 94.7 %; Platelet Count 264 X 10*3/uL (140-440); RBC 3.43 X 10*6/uL (4.10-5.20); RDW 15.1 % (11.5-14.5); WBC 10.84 X 10*3/uL (4.50-10.00)
[2023-04-07] MEDS: ALBUTEROL NEBULIZED 2.5 MG/3 ML INHALATION SCH ×2 (08:52→12:40)
[2023-04-07] MEDS: BUDESONIDE 0.5 MG/2 ML NEBU INHALATION SCH (08:52)
[2023-04-07 09:08] VITALS: BP 127/85; RESP 17; TEMP 97.7
[2023-04-07 09:47] VITALS: PULSE 89
[2023-04-07 10:29] LABS: BUN/Creat Ratio 15.85 Ratio (12.00-20.00); Blood Urea Nitrogen 20.6 mg/dL (9.0-27.0); Calcium 9.7 mg/dL (8.7-10.3); Carbon Dioxide 22.4 mmol/L (21.6-31.8); Chloride 101 mmol/L (96-109); Glucose 232 mg/dL (70-110); Potassium 4.7 mmol/L (3.5-5.5); Sodium 137 mmol/L (135-145)
--- NOTE | 2023-04-07 11:13 | P.PN ---
Subjective HISTORY OF PRESENT ILLNESS: Patient is a pleasant 82-year-old female with significant past medical history of type 2 diabetes, hypertension, hyperlipidemia, paroxysmal atrial fibrillation status post cardioversion, CAD status post PCI mid LAD 12/30/22, sick sinus syndrome status post pacemaker placement 12/2022 who presented to the emergency department with complaints of chest pain and back pain. She follows with Dr. Cuevas. She reports that she developed back pain around 7 PM last night that then radiated to undergo her left breast, this was occurring at rest. She denies any recent illness, fever, chills. Denies any injury or strain. Labs reviewed troponin negative 2, BNP 475, creatinine 0.91, WBC 5.3, hemoglobin 11.5. She had a prior echo limited X with ejection fraction 5560%, no pericardial effusion. She does report that the pain in her back is more chronic however pain under the left breast is new. Left chest is tender on palpation. No change in pain with nitro. EKG shows atrial fibrillation, 101 bpm, nonspecific ST and T- wave abnormality. Chest X-ray with no acute pulmonary process. 04/06/23 She reports that her left-sided chest pain has resolved. Her back pain has improved significantly with pain medications. She is feeling better overall. Echocardiogram 04/05/23 with ejection fraction 55%, mild LVH, RVSP 37. 04/07/2023 Patient examined this morning at the bedside. Patient denies chest pain or pressure. She denies shortness of breath. Vital signs are stable. Telemetry reveals sinus mechanism. PHYSICAL EXAM: VITAL SIGNS: Reviewed. GENERAL: Well-developed in no acute distress. NECK: Supple. No JVD or thyromegaly LUNGS: Respirations even and unlabored. Lungs essentially clear to auscultation bilaterally. HEART: Regular rate and rhythm. S1 and S2 heard. EXTREMITIES: Normal range of motion. No clubbing or cyanosis. Peripheral pulses intact. No lower extremity edema ASSESSMENT: Chest pain, reproducible on exam, troponin negative x 3 CAD status post PCI of the LAD 01/01/23 Sick sinus syndrome status post pacemaker placement 01/04/23 Hypertension Hyperlipidemia Paroxysmal atrial fibrillation Diabetes type 2 Back pain, history of multiple surgeries and kyphoplasty PLAN: Continue current cardiac medications No further inpatient recommendations from a cardiac standpoint Patient is stable for discharge from a cardiology perspective We will sign off. Please reconsult if needed. Nurse practitioner note has been reviewed by physician. Signing provider agrees with the documented findings, assessment, and plan of care. Objective - Vital Signs Vital signs: Vital Signs Temp 97.7 F 04/07/23 08:00 Pulse 88 04/07/23 09:08 Resp 17 04/07/23 08:00 BP 127/85 04/07/23 08:00 Pulse Ox 97 04/07/23 08:00 FiO2 Intake & Output 04/06/23 04/07/23 04/07/23 18:59 06:59 18:59 Other: Voiding Method Toilet Toilet # Voids 5 2 2 - Labs CBC & Chem 7: 04/07/23 05:54 04/07/23 05:54 Labs: Abnormal Lab Results - Last 24 Hours (Table) 04/06/23 04/06/23 04/06/23 Range/Units 11:35 16:57 21:20 WBC (4.50-10.00) X 10*3/uL RBC (4.10-5.20) X 10*6/uL Hgb (12.0-15.0) d/dL Hct (37.2-46.3) % MCV (80.0-97.0) FL MCHC (32.0-37.0) d/dL RDW (11.5-14.5) % Neutrophils # (1.80-7.70) X 10*3/uL Lymphocytes # (0.90-5.00) X 10*3/uL Monocytes # (0.20-1.00) X 10*3/uL Eosinophils # (0.04-0.35) X 10*3/uL Anion Gap (4.00-12.00) mmol/L Est GFR (CKD-EPI) (>=60) Glucose (70-110) mg/dL POC Glucose (mg/dL) 257 H 281 H 322 H (70-110) mg/dL Hemoglobin A1c (<=6.0) % 04/07/23 04/07/23 04/07/23 Range/Units 05:54 05:54 05:54 WBC 10.84 H (4.50-10.00) X 10*3/uL RBC 3.43 L (4.10-5.20) X 10*6/uL Hgb 10.5 L (12.0-15.0) d/dL Hct 34.0 L (37.2-46.3) % MCV 99.1 H (80.0-97.0) FL MCHC 30.9 L (32.0-37.0) d/dL RDW 15.1 H (11.5-14.5) % Neutrophils # 10.27 H (1.80-7.70) X 10*3/uL Lymphocytes # 0.44 L (0.90-5.00) X 10*3/uL Monocytes # 0.09 L (0.20-1.00) X 10*3/uL Eosinophils # 0 L (0.04-0.35) X 10*3/uL Anion Gap 13.60 H (4.00-12.00) mmol/L Est GFR (CKD-EPI) 42 L (>=60) Glucose 232 H (70-110) mg/dL POC Glucose (mg/dL) (70-110) mg/dL Hemoglobin A1c 7.3 H (<=6.0) % 04/07/23 Range/Units 06:10 WBC (4.50-10.00) X 10*3/uL RBC (4.10-5.20) X 10*6/uL Hgb (12.0-15.0) d/dL Hct (37.2-46.3) % MCV (80.0-97.0) FL MCHC (32.0-37.0) d/dL RDW (11.5-14.5) % Neutrophils # (1.80-7.70) X 10*3/uL Lymphocytes # (0.90-5.00) X 10*3/uL Monocytes # (0.20-1.00) X 10*3/uL Eosinophils # (0.04-0.35) X 10*3/uL Anion Gap (4.00-12.00) mmol/L Est GFR (CKD-EPI) (>=60) Glucose (70-110) mg/dL POC Glucose (mg/dL) 234 H (70-110) mg/dL Hemoglobin A1c (<=6.0) %
--- NOTE | 2023-04-11 12:47 | CDI ---
Documentation Clarification Form Date: 04/11/2023 12:28:28 PM From: Melanie Small RN, CCDS Email: [email or web address] Admit Date: 04/06/2023 12:16:00 PM Patient Name: Hortencia Mcpherson Visit Number: [id number] Discharge Date: 04/07/2023 12:57:00 PM ATTENTION: The Clinical Documentation Specialists (CDI) and [facility] Coding Staff appreciate your assistance in clarifying documentation. Please respond to the clarification below the line at the bottom and electronically sign. The CDI & [facility] Coding staff will review the response and follow-up if needed. Please note: Queries are made part of the Legal Health Record. If you have any questions, please contact the author of this message via ITS. Dr. Rodrigo Dietrich Your patient has the documented symptom of chest pain in the H&P and progress notes. Additional clarification regarding the etiology/cause of this symptom is requested. Patient C/O: chest and back pain per the H&P. History/Risk factors: A fib, angina, DM, HLD, HTN, OA Clinical Indicators: ED: "Described as a substernal pressure with associated shortness of breath. The pain goes straight through to her back." H&P: "had a recent PCI of the LAD, was complaining of severe back pain in the upper midback and radiating to the front with spasms and also some chest pain. Cardiology saw the patient. Chest pain was thought to be reproducible. The patient is being evaluated for musculoskeletal issues as well. Cardiology consult: "Left chest is tender on palpation. No change in pain with nitro. Chest pain is currently reproducible, troponins negative x2. Recommend pain control for back pain. 04/04-04/05 Labs: Troponin <0.012 Treatment: [place] po Q6H prn for pain; Monitor labs; Flexeril 10mg po BID prn 04/05-04/06; IV Dilaudid IV x1mg on 04/04 then 0.5mg Q6H prn ; Robaxin 500mg po Q6H prn pain 04/05-04/07 Please provide additional clarification regarding the etiology/cause of the chest pain. [x ] Chest pain due to Costochondritis [ ] Chest pain due to other condition, please specify [ ] Unable to determine MTDD
== END 2023-04-07 12:57 | disposition home health service (06) | DRG 206 ==
LOC: EC 20:57 → 6NMEDSUR 23:21 → OBSVTOIN 04-06 12:16
PROVIDERS: ADMIT Hospitalist; ATTEND Hospitalist
DX: M94.0 Chondrocostal junction syndrome [Tietze] (principal); Z68.42 Body mass index [BMI] 45.0-49.9, adult; E66.9 Obesity, unspecified; E78.5 Hyperlipidemia, unspecified; I48.0 Paroxysmal atrial fibrillation; I49.5 Sick sinus syndrome; I08.3 Combined rheumatic disorders of mitral, aortic and tricuspid valves; I27.20 Pulmonary hypertension, unspecified; F17.200 Nicotine dependence, unspecified, uncomplicated; Z88.1 Allergy status to other antibiotic agents; Z88.5 Allergy status to narcotic agent; G89.29 Other chronic pain; M47.9 Spondylosis, unspecified; I25.10 Atherosclerotic heart disease of native coronary artery without angina pectoris; I10 Essential (primary) hypertension; M19.90 Unspecified osteoarthritis, unspecified site; Z20.822 Contact with and (suspected) exposure to COVID-19; Z79.01 Long term (current) use of anticoagulants; Z79.02 Long term (current) use of antithrombotics/antiplatelets; Z79.82 Long term (current) use of aspirin; Z79.84 Long term (current) use of oral hypoglycemic drugs; Z79.899 Other long term (current) drug therapy; Z82.49 Family history of ischemic heart disease and other diseases of the circulatory system; Z95.0 Presence of cardiac pacemaker; Z98.1 Arthrodesis status; Z95.5 Presence of coronary angioplasty implant and graft; Z87.01 Personal history of pneumonia (recurrent); Z79.4 Long term (current) use of insulin
CPT/HCPCS: 36415; 71046; 72070; 72100; 80048; 80053; 81003; 83036; 83690; 83735; 83880; 84484; 85025; 85610; 85652; 85730; 86140; 93005; 93306; 94640; 94760; 96374; 96376; 99285

== ENCOUNTER → 2023-05-08 | Outpatient (CLI) | payer MEDICARE ==
[2023-05-08 13:28] VITALS: BP 141/55; PULSE 93; RESP 16
--- NOTE | 2023-05-08 14:42 | P.PAINPG ---
PQRS Measure Charge Sheet Comment: HISTORY OF PRESENT ILLNESS: 82 yr old wheelchair bound female w 2 daughters at side as a referral from [facility] presents today w severe and chronic mid back pain x 2 yrs secondary to post laminectomy syndrome for evaluation. Pt states pain level is provoked at 10 /10 in intensity, intermittent, localized in the mid spine, stabbing/ sharp in character w shooting pain towards the L lower lumbar spine. Pain is provoked by standing/ sitting for periods of 10 min or more, or w flexion. Pain is alleviated by chiropractic treatments semi monthly x 1 yr w last visit in Mar 2023, heat, medications ([place], Flexeril, Neurontin, Lidoderm), use of a wheelchair for ambulatory assistance, repositioning and rest. Oswestry axial pain score at 34. PMH: OA, aFib, Angina, DM II, Hyperlipidemia, HTN PSH: Lumbar surgery (2014), Kyphoplasty (2015), Cholecystectomy, Heart Catheterization With Stent (2022), Orthopedic Surgery, Pacemaker, Nasal Repair s/p Fx, BL Cataract Extraction, R CTR SH: Negative x3 FH: Fa- CO, at age 54. Mo- Celebrex complication, at age 89. All: See list Meds: See list REVIEW OF ORGAN SYSTEMS: CONSTITUTIONAL: No fevers or chills. No recent weight loss. NEUROLOGICAL: + numbness and tingling along the distal extremities. No seizure disorders or headaches. MUSCULOSKELETAL: + pain PSYCHIATRIC: Denies current depression or suicidal thoughts. Physical Examinations : Constitutional : Cooperative , not in acute distress . Neurologic : Cranial nerve II to XII intact. No focal neurological deficits. Psychiatric : alert & oriented x 3. Matching mood & appropriate affect. Judgment & insight intact. Musculoskeletal : Cervical Spine Motor strength in the deltoid and biceps: Normal right side. Normal Left side Motor strength biceps and the wrist extensors: Normal right side . Normal left side Motor strength in the triceps muscle: Normal right side. Normal left side Deep tendon reflexes: Normal at the biceps. Normal at Brachioradialis. Normal at triceps Vertebral body tenderness to deep palpation over Cervical facet loading test: positive bilaterally Spurling test: positive bilaterally Neck distraction test: positive bilaterally Chan sign: positive bilaterally Thoracic spine Incisional scar intact, Vertebral body TTP over T5-T10 Lumbar spine Motor strength lower extremities ,thigh and legs 5/5 Right side , 5/5 Left side Deep tendon reflexes : Normal Knee Jerk. Normal Ankle Jerk Vertebral body tenderness over Lala Test positive Lumbar facet Loading Test: positive Right / positive Left Range of motion of the lumbar spine Flexion 30 degrees, extension 10 degrees Straight Leg Raise test: Left/ Right positive at degree Omid test: positive right / positive left. Severe tenderness over the Sacroiliac joint on the Right / Left sides Gaenslen test: positive bilaterally Seated flexion test: positive bilaterally. Sacral spine : Severe tenderness over the Sacroiliac joint: right side / left side Range of motion: Flexion of the lumbar spine <60 degrees Range of motion: Extension of the lumbar spine <20 degrees Gaenslen's Test positive Red's Test positive Omid test: positive right side / left side Thigh Thrust Test Sacral Thrust Test Imaging: X-ray thoracic spine from 04/06/23 reviewed Assessment/ Plan : Thoracic DDD Recommendation of CT thoracic spine Dx M51.34 RTC in 2 wks for a re evaluation. All questions answered. I have spent greater than 30 minutes on patient care today. Dr Richard was available by phone for the evaluation of this patient. The time was used to review the medical records including relevant urine studies and Prescription history (MAPs), review of the available imaging, evaluation and examination of the patient, coordination of care with the medical staff and if applicable referring physicians, as well as creation of the medical record PQRS Narrative: Smoking Status Never smoker Hx Alcohol Use (MH) No Home Medications: Ambulatory Orders amLODIPine [Norvasc] 5 mg PO DAILY 04/09/18 sitaGLIPtin [Januvia] 100 mg PO DAILY 04/09/18 Montelukast [Singulair] 10 mg PO DAILY 03/28/19 Atorvastatin [Lipitor] 40 mg PO DAILY 04/09/19 Metoprolol Succinate [Toprol XL] 50 mg PO DAILY 09/16/20 Apixaban [Eliquis] 5 mg PO BID 09/04/22 HYDROcodone/APAP 7.5-325MG [[place] 7.5-325] 1 tab PO Q6H PRN 09/04/22 Insulin Glargine,Hum.rec.anlog [Lantus Solostar Pen] 10 units SQ DAILY 09/04/22 Furosemide [Lasix] 40 mg PO DAILY #30 tab 09/06/22 hydrALAZINE HCL [Apresoline] 25 mg PO BID #60 tab 09/06/22 Tolterodine Tartrate [Tolterodine Tartrate ER] 4 mg PO DAILY 10/16/22 Albuterol Nebulized [Ventolin Nebulized] 2.5 mg INHALATION RT-QID 12/30/22 Budesonide [Pulmicort] 0.5 mg INHALATION RT-BID 12/30/22 Omeprazole 40 mg PO DAILY 12/30/22 Clopidogrel [Plavix] 75 mg PO DAILY 30 Days #30 tab 01/05/23 Losartan [Cozaar] 25 mg PO DAILY 30 Days #30 tab 01/05/23 Ascorbic Acid [Vitamin C] 1,000 mg PO DAILY #60 tab 01/15/23 Aspirin 325 mg PO DAILY #30 tab 01/15/23 Cyclobenzaprine [Flexeril] 10 mg PO BID PRN 02/17/23 glipiZIDE XL [Glucotrol XL] 10 mg PO DAILY 02/17/23 Gabapentin 600 mg PO BID 04/05/23 Lidocaine 5% Patch [Lidoderm 5% Patch] 1 patch TRANSDERM DAILY PRN 04/05/23 Nitroglycerin Sl Tabs [Nitrostat] 0.4 mg SL Q5M PRN 04/05/23 tiZANidine [Zanaflex] 4 mg PO Q12H PRN #20 tab 04/23/23 Controlled Substance Measures - Controlled Substance Measures Is patient prescribed a controlled substance at discharge?: No
== END ==
LOC: PNWHC3 12:40
PROVIDERS: ATTEND Specialist
DX: M51.34 Other intervertebral disc degeneration, thoracic region (principal); M47.814 Spondylosis without myelopathy or radiculopathy, thoracic region; Z79.01 Long term (current) use of anticoagulants; M19.90 Unspecified osteoarthritis, unspecified site; I48.91 Unspecified atrial fibrillation; E11.9 Type 2 diabetes mellitus without complications; I10 Essential (primary) hypertension; E78.5 Hyperlipidemia, unspecified; Z79.82 Long term (current) use of aspirin; Z88.1 Allergy status to other antibiotic agents; Z88.8 Allergy status to other drugs, medicaments and biological substances; Z88.5 Allergy status to narcotic agent; Z79.899 Other long term (current) drug therapy; Z79.84 Long term (current) use of oral hypoglycemic drugs; Z79.02 Long term (current) use of antithrombotics/antiplatelets; Z79.4 Long term (current) use of insulin
CPT/HCPCS: 99211

== ENCOUNTER → 2023-05-16 | Outpatient (CLI) | payer MEDICARE ==
--- NOTE | 2023-05-16 11:41 | CT ---
EXAMINATION TYPE: CT thoracic spine wo con DATE OF EXAM: 05/16/2023 COMPARISON: CT chest 01/13/2023, 09/16/2020 HISTORY: 82-year-old female M5 1.34 intervertebral disc degeneration TECHNIQUE: Contiguous axial scanning of the thoracic spine without IV contrast. Coronal and sagittal reconstructions performed. CT DLP: 1279.6 mGycm Automated exposure control for dose reduction was used. FINDINGS: Cardiac pacer leads are present. A 1.5 cm hypodensity right central liver dome suspected vascular in etiology, vaguely seen on the exam. Small hiatal hernia. There is a gentle dextroconvex curvature of the thoracic spine. Accentuated lower thoracic kyphosis s econdary to multiple compression deformities. Previous vertebral plasty change T6, T8, T9, and T10. M ild retropulsion into the ventral spinal canal at the T8 level contributing to mild overall spinal ca nal narrowing, unchanged. No new vertebral compression collapse. Mild to moderate degenerative disc disease C5-C6 and also at T 12-L1. No evident high-grade canal compromise is seen. On the left, there is moderate bony neuroforaminal narrowing at both T6-T7 and T8-T9. On the right, mild bony neuroforaminal narrowing T8-T9 and T9-T10. IMPRESSION: 1. PREVIOUS VERTEBROPLASTY CHANGES REDEMONSTRATED AT THE T6, T8, T9, AND T10 VERTEBRAL BODIES. MILD R ETROPULSION INTO THE VENTRAL SPINAL CANAL AT T8 CONTRIBUTES TO SIMILAR MILD OVERALL SPINAL CANAL NARR OWING HERE. NO GERA CANAL COMPROMISE. 2. NO NEW VERTEBRAL COMPRESSION DEFORMITY. SIMILAR ACCENTUATED LOWER THORACIC KYPHOSIS. 3. MODERATE LEFT-SIDED BONY NEUROFORAMINAL NARROWING AT T6-T7 AND T8-T9.
== END | disposition home or self-care (01) ==
LOC: RADCTMAIN 08:30
PROVIDERS: ATTEND Specialist
DX: M51.34 Other intervertebral disc degeneration, thoracic region (principal); M99.72 Connective tissue and disc stenosis of intervertebral foramina of thoracic region
CPT/HCPCS: 72128

== ENCOUNTER → 2023-05-28 | Outpatient (CLI) | payer MEDICARE ==
[2023-05-28 14:27] VITALS: BP 143/76; PULSE 89; RESP 16; TEMP 98.1
--- NOTE | 2023-05-28 14:44 | P.PAINPG ---
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 Pt states pain level is provoked at 10 /10 in intensity, intermittent, localized in the mid spine, stabbing/ sharp in character w shooting pain towards the L thoracic spine. Pain is provoked by standing/ sitting for periods of 10 min or more, or w flexion. Pain is alleviated by chiropractic treatments semi monthly x 1 yr w last visit in Mar 2023, heat, medications, use of a wheelchair for ambulatory assistance, repositioning and rest. ESIs in the past have been ineffective. Pain medications prescribed by Dr Parmar only provided pt w 1 hr of pain relief per day, of which the remaining time she is in severe pain at the current doses. She does not want to try to replace 2 or more oral meds for Fentanyl due to the adverse reaction she experienced from Fentanyl previously. She had joked that she feels like jumping out of the car due to pain. A psychiatric evaluation has been provided for coping mechanisms for intractable pain. Daughters aware of the danger of mood to the mother's well being. Oswestry axial pain score at 34. Interventional procedures include DENIES Medications include Oxycodone, [place], Flexeril, Neurontin, Lidoderm REVIEW OF ORGAN SYSTEMS: CONSTITUTIONAL: No fevers or chills. No recent weight loss. NEUROLOGICAL: + numbness and tingling along the distal extremities. No seizure disorders or headaches. MUSCULOSKELETAL: + pain PSYCHIATRIC: Denies current depression or suicidal thoughts. Physical Examinations : Constitutional : Cooperative , not in acute distress . Neurologic : Cranial nerve II to XII intact. No focal neurological deficits. Psychiatric : alert & oriented x 3. Matching mood & appropriate affect. Judgment & insight intact. Musculoskeletal : Cervical Spine Motor strength in the deltoid and biceps: Normal right side. Normal Left side Motor strength biceps and the wrist extensors: Normal right side . Normal left side Motor strength in the triceps muscle: Normal right side. Normal left side Deep tendon reflexes: Normal at the biceps. Normal at Brachioradialis. Normal at triceps Vertebral body tenderness to deep palpation over Cervical facet loading test: positive bilaterally Spurling test: positive bilaterally Neck distraction test: positive bilaterally Chan sign: positive bilaterally Thoracic spine Incisional scar intact, Vertebral body TTP over T5-T10 Lumbar spine Motor strength lower extremities ,thigh and legs 5/5 Right side , 5/5 Left side Deep tendon reflexes : Normal Knee Jerk. Normal Ankle Jerk Vertebral body tenderness over Lala Test positive Lumbar facet Loading Test: positive Right / positive Left Range of motion of the lumbar spine Flexion 30 degrees, extension 10 degrees Straight Leg Raise test: Left/ Right positive at degree Omid test: positive right / positive left. Severe tenderness over the Sacroiliac joint on the Right / Left sides Gaenslen test: positive bilaterally Seated flexion test: positive bilaterally. Sacral spine : Severe tenderness over the Sacroiliac joint: right side / left side Range of motion: Flexion of the lumbar spine <60 degrees Range of motion: Extension of the lumbar spine <20 degrees Gaenslen's Test positive Red's Test positive Omid test: positive right side / left side Thigh Thrust Test Sacral Thrust Test Imaging: X-ray thoracic spine from 04/06/[address] noncontrast of the thoracic spine from 05/16/23 reviewed Assessment/ Plan : Thoracic vertebroplasty Recommendation of intrathecal pain pump placement G89.4, F11.288. Pt has had short term benefit with oral narcotic medications. All questions answered. I have spent greater than 30 minutes on patient care today. Dr Richard was available by phone for the evaluation of this patient. The time was used to review the medical records including relevant urine studies and Prescription history (MAPs), review of the available imaging, evaluation and examination of the patient, coordination of care with the medical staff and if applicable referring physicians, as well as creation of the medical record PQRS Narrative: Smoking Status Never smoker Hx Alcohol Use (MH) No Home Medications: Ambulatory Orders amLODIPine [Norvasc] 5 mg PO DAILY 04/09/18 sitaGLIPtin [Januvia] 100 mg PO DAILY 04/09/18 Montelukast [Singulair] 10 mg PO DAILY 03/28/19 Atorvastatin [Lipitor] 40 mg PO DAILY 04/09/19 Metoprolol Succinate [Toprol XL] 50 mg PO DAILY 09/16/20 Apixaban [Eliquis] 5 mg PO BID 09/04/22 HYDROcodone/APAP 7.5-325MG [Saluda 7.5-325] 1 tab PO Q6H PRN 09/04/22 Insulin Glargine,Hum.rec.anlog [Lantus Solostar Pen] 10 units SQ DAILY 09/04/22 Furosemide [Lasix] 40 mg PO DAILY #30 tab 09/06/22 hydrALAZINE HCL [Apresoline] 25 mg PO BID #60 tab 09/06/22 Tolterodine Tartrate [Tolterodine Tartrate ER] 4 mg PO DAILY 10/16/22 Albuterol Nebulized [Ventolin Nebulized] 2.5 mg INHALATION RT-QID 12/30/22 Budesonide [Pulmicort] 0.5 mg INHALATION RT-BID 12/30/22 Omeprazole 40 mg PO DAILY 12/30/22 Clopidogrel [Plavix] 75 mg PO DAILY 30 Days #30 tab 01/05/23 Losartan [Cozaar] 25 mg PO DAILY 30 Days #30 tab 01/05/23 Ascorbic Acid [Vitamin C] 1,000 mg PO DAILY #60 tab 01/15/23 Aspirin 325 mg PO DAILY #30 tab 01/15/23 Cyclobenzaprine [Flexeril] 10 mg PO BID PRN 02/17/23 glipiZIDE XL [Glucotrol XL] 10 mg PO DAILY 02/17/23 Gabapentin 600 mg PO BID 04/05/23 Lidocaine 5% Patch [Lidoderm 5% Patch] 1 patch TRANSDERM DAILY PRN 04/05/23 Nitroglycerin Sl Tabs [Nitrostat] 0.4 mg SL Q5M PRN 04/05/23 tiZANidine [Zanaflex] 4 mg PO Q12H PRN #20 tab 04/23/23 Controlled Substance Measures - Controlled Substance Measures Is patient prescribed a controlled substance at discharge?: No
== END ==
LOC: PNWHC3 12:50
PROVIDERS: ATTEND Specialist
DX: M51.24 Other intervertebral disc displacement, thoracic region (principal); Z79.82 Long term (current) use of aspirin; Z88.8 Allergy status to other drugs, medicaments and biological substances; Z88.5 Allergy status to narcotic agent
CPT/HCPCS: 99211

== ENCOUNTER → 2023-06-09 | Outpatient (CLI) | payer MEDICARE ==
[2023-06-09 11:29] VITALS: BP 149/77; PULSE 116; RESP 16
--- NOTE | 2023-06-09 15:04 | P.PAINPG ---
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 Received behavioral health clearance for Pain Pump Placement. Pt states pain level is provoked at 10 /10 in intensity, intermittent, localized in the mid spine, primarily axial, stabbing/ sharp in character w shooting pain towards the L thoracic spine. Pain is provoked by standing/ sitting for periods of 10 min or more, or w flexion. Pain is alleviated by chiropractic treatments semi monthly x 1 yr w last visit in Mar 2023, heat, medications, use of a wheelchair for ambulatory assistance, repositioning and rest. ESIs in the past have been ineffective. Pain medications prescribed by Dr Parmar only provided pt w 1 hr of pain relief per day, of which the remaining time she is in severe pain at the current doses. She does not want to try to replace 2 or more oral meds for Fentanyl due to the adverse reaction she experienced from Fentanyl previously. Behavioral health believes pt also has QUIQUE but no medications were prescribed. Discussed w pt to follow up and possibly receive anti- anxiolytics but pt is disinterested. Oswestry axial pain score at 34. Interventional procedures include DENIES Medications include Oxycodone, [place], Flexeril, Neurontin, Lidoderm REVIEW OF ORGAN SYSTEMS: CONSTITUTIONAL: No fevers or chills. No recent weight l oss. NEUROLOGICAL: + numbness and tingling along the distal extremities. No seizure disorders or headaches. MUSCULOSKELETAL: + pain PSYCHIATRIC: Denies current depression or suicidal thoughts. Physical Examinations : Constitutional : Cooperative , not in acute distress . Neurologic : Cranial nerve II to XII intact. No focal neurological deficits. Psychiatric : alert & oriented x 3. Matching mood & appropriate affect. Judgment & insight intact. Musculoskeletal : Cervical Spine Motor strength in the deltoid and biceps: Normal right side. Normal Left side Motor strength biceps and the wrist extensors: Normal right side . Normal left side Motor strength in the triceps muscle: Normal right side. Normal left side Deep tendon reflexes: Normal at the biceps. Normal at Brachioradialis. Normal at triceps Vertebral body tenderness to deep palpation over Cervical facet loading test: positive bilaterally Spurling test: positive bilaterally Neck distraction test: positive bilaterally Chan sign: positive bilaterally Thoracic spine Incisional scar intact, Vertebral body TTP over T5-T10 Lumbar spine Motor strength lower extremities ,thigh and legs 5/5 Right side , 5/5 Left side Deep tendon reflexes : Normal Knee Jerk. Normal Ankle Jerk Vertebral body tenderness over Lala Test positive Lumbar facet Loading Test: positive Right / positive Left Range of motion of the lumbar spine Flexion 30 degrees, extension 10 degrees Straight Leg Raise test: Left/ Right positive at degree Omid test: positive right / positive left. Severe tenderness over the Sacroiliac joint on the Right / Left sides Gaenslen test: positive bilaterally Seated flexion test: positive bilaterally. Sacral spine : Severe tenderness over the Sacroiliac joint: right side / left side Range of motion: Flexion of the lumbar spine <60 degrees Range of motion: Extension of the lumbar spine <20 degrees Gaenslen's Test positive Red's Test positive Omid test: positive right side / left side Thigh Thrust Test Sacral Thrust Test Imaging: X-ray thoracic spine from 04/06/[address] noncontrast of the thoracic spine from 05/16/23 reviewed Assessment/ Plan : Thoracic vertebroplasty Recommendation of intrathecal pain pump placement trial G89.4, F11.288. Pt has had short term benefit with oral narcotic medications. Will try Butrans patch mcg/hr q7 days, and if ineffective, will proceed w trial. All questions answered. I have spent greater than 30 minutes on patient care today. Dr Richard was available by phone for the evaluation of this patient. The time was used to review the medical records including relevant urine studies and Prescription history (MAPs), review of the available imaging, evaluation and examination of the patient, coordination of care with the medical staff and if applicable referring physicians, as well as creation of the medical record - Pain Location Bilateral Lower Back Non-Pharmacological Interventions: Position/Reposition, Sitting Pharmacological Interventions: PRN Medication, Scheduled Medication, Topical Medication PQRS Narrative: Smoking Status Never smoker Hx Alcohol Use (MH) No Home Medications: Ambulatory Orders amLODIPine [Norvasc] 5 mg PO DAILY 04/09/18 sitaGLIPtin [Januvia] 100 mg PO DAILY 04/09/18 Montelukast [Singulair] 10 mg PO DAILY 03/28/19 Atorvastatin [Lipitor] 40 mg PO DAILY 04/09/19 Metoprolol Succinate [Toprol XL] 50 mg PO DAILY 09/16/20 Apixaban [Eliquis] 5 mg PO BID 09/04/22 HYDROcodone/APAP 7.5-325MG [[place] 7.5-325] 1 tab PO Q6H PRN 09/04/22 Insulin Glargine,Hum.rec.anlog [Lantus Solostar Pen] 10 units SQ DAILY 09/04/22 Furosemide [Lasix] 40 mg PO DAILY #30 tab 09/06/22 hydrALAZINE HCL [Apresoline] 25 mg PO BID #60 tab 09/06/22 Tolterodine Tartrate [Tolterodine Tartrate ER] 4 mg PO DAILY 10/16/22 Albuterol Nebulized [Ventolin Nebulized] 2.5 mg INHALATION RT-QID 12/30/22 Budesonide [Pulmicort] 0.5 mg INHALATION RT-BID 12/30/22 Omeprazole 40 mg PO DAILY 12/30/22 Clopidogrel [Plavix] 75 mg PO DAILY 30 Days #30 tab 01/05/23 Losartan [Cozaar] 25 mg PO DAILY 30 Days #30 tab 01/05/23 Ascorbic Acid [Vitamin C] 1,000 mg PO DAILY #60 tab 01/15/23 Aspirin 325 mg PO DAILY #30 tab 01/15/23 Cyclobenzaprine [Flexeril] 10 mg PO BID PRN 02/17/23 glipiZIDE XL [Glucotrol XL] 10 mg PO DAILY 02/17/23 Gabapentin 600 mg PO BID 04/05/23 Lidocaine 5% Patch [Lidoderm 5% Patch] 1 patch TRANSDERM DAILY PRN 04/05/23 Nitroglycerin Sl Tabs [Nitrostat] 0.4 mg SL Q5M PRN 04/05/23 tiZANidine [Zanaflex] 4 mg PO Q12H PRN #20 tab 04/23/23 Controlled Substance Measures - Controlled Substance Measures Is patient prescribed a controlled substance at discharge?: No
== END ==
LOC: PNWHC3 10:19
PROVIDERS: ATTEND Specialist
DX: G89.18 Other acute postprocedural pain (principal); M54.6 Pain in thoracic spine; Z79.82 Long term (current) use of aspirin; Z88.8 Allergy status to other drugs, medicaments and biological substances; Z88.5 Allergy status to narcotic agent
CPT/HCPCS: 99211

== ENCOUNTER 2023-06-23 00:33 | Emergency (ER) | payer MEDICARE ==
[2023-06-23] MEDS ORDERED: ONDANSETRON 4 MG/2 ML VIAL IVP STA (00:59)
[2023-06-23] MEDS ORDERED: HYDROmorphone 1 MG/ML 1 ML SYRINGE IVP STA (01:00)
[2023-06-23 01:21] LABS: Basophils % (A) 1 %; Eosinophils # (A) 0.2 k/uL (0-0.7); Eosinophils % (A) 2 %; HCT 35.5 % (34.0-46.0); HGB 11.5 gm/dL (11.4-16.0); Lymphocytes # (A) 1.1 k/uL (1.0-4.8); Lymphocytes % (A) 12 %; MCHC 32.4 g/dL (31.0-37.0); MCV 95.8 fL (80.0-100.0); Mean Platelet Volume 9.3; Monocytes # (A) 0.5 k/uL (0-1.0); Monocytes % (A) 5 %; Neutrophils # (A) 6.8 k/uL (1.3-7.7); Neutrophils % (A) 79 %; Platelet Count 179 k/uL (150-450); RDW 14.5 % (11.5-15.5); WBC 8.6 k/uL (3.8-10.6)
[2023-06-23 01:30] LABS: ALT 14 U/L (4-34); AST 19 U/L (14-36); African American GFR (CKD) 57 (>60 ml/min/1.73 sqM); Albumin 4.1 g/dL (3.5-5.0); Alkaline Phosphatase 124 U/L (38-126); Anion Gap 10 mmol/L; Blood Urea Nitrogen 25 mg/dL (7-17); Calcium 9.2 mg/dL (8.4-10.2); Carbon Dioxide 26 mmol/L (22-30); Chloride 100 mmol/L (98-107); Glucose 115 mg/dL (74-99); Non-African American GFR(CKD) 49 (>60 ml/min/1.73 sqM); Potassium 4.2 mmol/L (3.5-5.1); Sodium 136 mmol/L (137-145); Total Bilirubin 0.6 mg/dL (0.2-1.3); Total Protein 6.5 g/dL (6.3-8.2)
[2023-06-23 01:31] LABS: Partial Thromboplastin Time 27.3 sec (22.0-30.0); Prothrombin Time 10.9 sec (10.0-12.5)
[2023-06-23 01:38] LABS: NT-Pro-B-Type Natriuretic Pept 915 pg/mL
--- NOTE | 2023-06-23 01:42 | XR ---
EXAM: XR Chest, 2 Views CLINICAL HISTORY: ITS.REASON XR Reason: Chest Pain TECHNIQUE: Frontal and lateral views of the chest. COMPARISON: No relevant prior studies available. FINDINGS: Lungs: Unremarkable. No consolidation. Pleural space: Unremarkable. No pneumothorax. Heart: Cardiomegaly. Mediastinum: Unremarkable. Normal mediastinal contour. Bones/joints: Old fracture of the RIGHT humerus surgical neck. Multilevel cement kyphoplasty. Tubes, lines and devices: Dual lead pacemaker. IMPRESSION: No acute findings in the chest.
--- NOTE | 2023-06-23 01:51 | ED ---
General Adult HPI - General Chief complaint: Chest Pain Stated complaint: MARGE, Chest Pain Time Seen by Provider: 06/23/23 00:50 Source: patient Mode of arrival: ambulatory Limitations: no limitations - History of Present Illness Initial comments: Hortencia is an 82yo F with PMH of chronic back pain who presents to the ER via private vehicle for evaluation of chest pain, shortness of breath and back pain. Patient reports she's had back pain for years and years she has seen pain management she was undergoing workup to get up nerve stimulator however has not been able to have that performed. Patient reports that throughout the day today she's had worsening pain in her back and chest trouble breathing. Despite taking her oral medications and wearing her pain patch her pain was not manage which prompted her come the ER for evaluation. Pain is not exertional, not associated with diaphoresis lightheadedness or palpitations. Patient was recently admitted and had pacemaker placed. - Related Data Home Medications Medication Instructions Recorded Confirmed amLODIPine [Norvasc] 5 mg PO DAILY 04/09/18 06/09/23 sitaGLIPtin [Januvia] 100 mg PO DAILY 04/09/18 06/09/23 Montelukast [Singulair] 10 mg PO DAILY 03/28/19 06/09/23 Atorvastatin [Lipitor] 40 mg PO DAILY 04/09/19 06/09/23 Metoprolol Succinate [Toprol XL] 50 mg PO DAILY 09/16/20 06/09/23 Apixaban [Eliquis] 5 mg PO BID 09/04/22 06/09/23 HYDROcodone/APAP 7.5-325MG [[place] 1 tab PO Q6H PRN 09/04/22 06/09/23 7.5-325] Insulin Glargine,Hum.rec.anlog 10 units SQ DAILY 09/04/22 06/09/23 [Lantus Solostar Pen] Tolterodine Tartrate [Tolterodine 4 mg PO DAILY 10/16/22 06/09/23 Tartrate ER] Albuterol Nebulized [Ventolin 2.5 mg INHALATION RT-QID 12/30/22 06/09/23 Nebulized] Budesonide [Pulmicort] 0.5 mg INHALATION RT-BID 12/30/22 06/09/23 Omeprazole 40 mg PO DAILY 12/30/22 06/09/23 Cyclobenzaprine [Flexeril] 10 mg PO BID PRN 02/17/23 06/09/23 glipiZIDE XL [Glucotrol XL] 10 mg PO DAILY 02/17/23 06/09/23 Gabapentin 600 mg PO BID 04/05/23 06/09/23 Lidocaine 5% Patch [Lidoderm 5% 1 patch TRANSDERM DAILY PRN 04/05/23 06/09/23 Patch] Nitroglycerin Sl Tabs [Nitrostat] 0.4 mg SL Q5M PRN 04/05/23 06/09/23 Previous Rx's Medication Instructions Recorded Furosemide [Lasix] 40 mg PO DAILY #30 tab 09/06/22 hydrALAZINE HCL [Apresoline] 25 mg PO BID #60 tab 09/06/22 Clopidogrel [Plavix] 75 mg PO DAILY 30 Days #30 tab 01/05/23 Losartan [Cozaar] 25 mg PO DAILY 30 Days #30 tab 01/05/23 Ascorbic Acid [Vitamin C] 1,000 mg PO DAILY #60 tab 01/15/23 Aspirin 325 mg PO DAILY #30 tab 01/15/23 tiZANidine [Zanaflex] 4 mg PO Q12H PRN #20 tab 04/23/23 oxyCODONE-APAP 10-325MG [Percocet 1 tab PO Q4HR PRN 3 Days #18 tab 06/16/23 10-325 mg] Allergies Allergy/AdvReac Type Severity Reaction Status Date / Time tetracycline Allergy Unknown Verified 06/23/23 00:49 fentanyl AdvReac "IN Verified 06/23/23 00:49 ANOTHER PLANET, DIDNT KNOW WHERE SHE WAS" morphine AdvReac Nausea & Verified 06/23/23 00:49 Vomiting Review of Systems ROS Statement: Those systems with pertinent positive or pertinent negative responses have been documented in the HPI. ROS Other: All systems not noted in ROS Statement are negative. Past Medical History Past Medical History: Atrial Fibrillation, Chest Pain / Angina, Diabetes Mellitus, Hyperlipidemia, Hypertension, Osteoarthritis (OA), Pneumonia Additional Past Medical History / Comment(s): Paroxysmal Afib, POST OP INFECTION AFTER BACK SURGERY, CHRONIC BACK PAIN FROM T8 FX, CHRONIC PERIPHERAL LEG EDEMA,R humerus fracture. History of Any Multi-Drug Resistant Organisms: None Reported Past Surgical History: Back Surgery, Cholecystectomy, Heart Catheterization With Stent, Orthopedic Surgery, Pacemaker Additional Past Surgical History / Comment(s): 2015 LUMBAR SURGERY, FX NOSE REPAIR, BILATERAL CATARACT SURGERY, R WRIST CARPAL TUNNEL SURGERY, kyphoplasty T8 ON 06/26/16 AND ONE BEFORE. Pacemaker placed 01/06/2023 Past Anesthesia/Blood Transfusion Reactions: No Reported Reaction Additional Past Anesthesia/Blood Transfusion Reaction / Comment(s): NEVER HAD A BLOOD TRANSFUSION. Date of Last Stent Placement:: 01/01/23 Type of Cardiac Device: Permanent Pacemaker Device Placement Date:: 12/30/22 Past Psychological History: No Psychological Hx Reported Smoking Status: Never smoker Past Alcohol Use History: None Reported Past Drug Use History: None Reported - Past Family History Father Family Medical History: Myocardial Infarction ([place]) Additional Family Medical History / Comment(s): FATHER AT AGE 52 OF AN [place] Mother Additional Family Medical History / Comment(s): MOTHER AT AGE 89 OF CELEBREX PROBLEM. General Exam Limitations: no limitations General appearance: alert Head exam: Present: atraumatic, normocephalic Eye exam: Present: normal appearance ENT exam: Present: normal exam Neck exam: Present: normal inspection Respiratory exam: Absent: respiratory distress Cardiovascular Exam: Present: irregular rhythm GI/Abdominal exam: Present: soft. Absent: distended Rectal exam: Present: deferred Extremities exam: Present: pedal edema Back exam: Present: tenderness Neurological exam: Present: alert, oriented X3 Skin exam: Present: warm, dry, intact Course Vital Signs 06/23/23 06/23/23 06/23/23 00:45 01:48 03:00 Temperature 98.3 F Pulse Rate 109 H 96 86 Respiratory 26 H 16 16 Rate Blood Pressure 119/78 114/68 O2 Sat by Pulse 95 98 97 Oximetry 06/23/23 06/23/23 05:00 06:12 Temperature 97.8 F Pulse Rate 93 74 Respiratory 16 18 Rate Blood Pressure 118/63 112/68 O2 Sat by Pulse 96 98 Oximetry Medical Decision Making - Medical Decision Making Was pt. sent in by a medical professional or institution (, PA, SECTION WEAVER, urgent care, hospital, or fpc...) When possible be specific @ -No Did you speak to anyone other than the patient for history (EMS, parent, family, police, friend...)? What history was obtained from this source @ -No Did you review nursing and triage notes (agree or disagree)? Why? @ -I reviewed and agree with nursing and triage notes Were old charts reviewed (outside hosp., previous admission, EMS record, old EKG, old radiological studies, urgent care reports/EKG's, fpc records)? Report findings @ -Previous admissions were reviewed Differential Diagnosis (chest pain, altered mental status, abdominal pain women, abdominal pain men, vaginal bleeding, weakness, fever, dyspnea, syncope, headache, dizziness, GI bleed, back pain, seizure, CVA, palpatations, mental health)? @ -Differential chest pain EKG interpreted by me (3pts min.). @ -As above X-rays interpreted by me (1pt min.). @ -No widened mediastinum, no pneumothorax CT interpreted by me (1pt min.). @ -None done U/S interpreted by me (1pt. min.). @ -None done What testing was considered but not performed or refused? (CT, X-rays, U/S, labs)? Why? @ -None What meds were considered but not given or refused? Why? @ -None Did you discuss the management of the patient with other professionals (professionals i.e. , PA, SECTION WEAVER, lab, RT, psych nurse, social worker school, fuel handler, teacher, first officer and flight instructor, rehabilitation case coordinator)? Give summary @ -No Was smoking cessation discussed for >3mins.? @ -No Was critical care preformed (if so, how long)? @ -No Were there social determinants of health that impacted care today? How? (Homelessness, low income, unemployed, alcoholism, drug addiction, transportation, low edu. Level, literacy, decrease access to med. care, fdc, rehab)? @ -No Was there de-escalation of care discussed even if they declined (Discuss DNR or withdrawal of care, Hospice)? DNR status @ -No What co-morbidities impacted this encounter? (DM, HTN, Smoking, COPD, CAD, Cancer, CVA, ARF, Chemo, Hep., AIDS, mental health diagnosis, sleep apnea, morbid obesity)? @ -None Was patient admitted / discharged? Hospital course, mention meds given and route, prescriptions, significant lab abnormalities, going to OR and other pertinent info. @ -Discharge Patient was seen and evaluated, upon arrival patient was complaining of chest pain shortness breath however her primary complaint was acute on chronic back pain. Patient was treated with 1 mg of Dilaudid IV, her workup was otherwise negative she was pain-free throughout her stay in the ER. Patient quite frustrated she hasn't found a pain management doctor who can implant a Dilaudid pump. Plans to follow up at [facility] in [place]. At this time patient's pain is managed she has no acute complaints and is stable for discharge home. Undiagnosed new problem with uncertain prognosis? @ -No Drug Therapy requiring intensive monitoring for toxicity (Heparin, Nitro, Insulin, Cardizem)? @ -No Were any procedures done? @ -No Diagnosis/symptom? @ -Chronic back pain Acute, or Chronic, or Acute on Chronic? @ -Acute on chronic Uncomplicated (without systemic symptoms) or Complicated (systemic symptoms)? @ -default Side effects of treatment? @ -No Exacerbation, Progression, or Severe Exacerbation? @ -No Poses a threat to life or bodily function? How? (Chest pain, [place], [place], pneumonia, PE, COPD, DKA, ARF, appy, cholecystitis, CVA, Diverticulitis, Homicidal, Suicidal, threat to staff... and all critical care pts) @ -No - Lab Data Result diagrams: 06/23/23 01:08 06/23/23 01:08 Lab Results 06/23/23 06/23/23 06/23/23 Range/Units 01:08 01:08 01:08 WBC 8.6 (3.8-10.6) k/uL RBC 3.70 L (3.80-5.40) m/uL Hgb 11.5 (11.4-16.0) gm/dL Hct 35.5 (34.0-46.0) % MCV 95.8 (80.0-100.0) fL MCH 31.0 (25.0-35.0) pg MCHC 32.4 (31.0-37.0) g/dL RDW 14.5 (11.5-15.5) % Plt Count 179 (150-450) k/uL MPV 9.3 Neutrophils % 79 % Lymphocytes % 12 % Monocytes % 5 % Eosinophils % 2 % Basophils % 1 % Neutrophils # 6.8 (1.3-7.7) k/uL Lymphocytes # 1.1 (1.0-4.8) k/uL Monocytes # 0.5 (0-1.0) k/uL Eosinophils # 0.2 (0-0.7) k/uL Basophils # 0.0 (0-0.2) k/uL PT 10.9 (10.0-12.5) sec INR 1.0 (<1.2) APTT 27.3 (22.0-30.0) sec Sodium 136 L (137-145) mmol/L Potassium 4.2 (3.5-5.1) mmol/L Chloride 100 (98-107) mmol/L Carbon Dioxide 26 (22-30) mmol/L Anion Gap 10 mmol/L BUN 25 H (7-17) mg/dL Creatinine 1.07 H (0.52-1.04) mg/dL Est GFR (CKD-EPI)AfAm 57 (>60 ml/min/1.73 sqM) Est GFR (CKD-EPI)NonAf 49 (>60 ml/min/1.73 sqM) Glucose 115 H (74-99) mg/dL Calcium 9.2 (8.4-10.2) mg/dL Magnesium 2.0 (1.6-2.3) mg/dL Total Bilirubin 0.6 (0.2-1.3) mg/dL AST 19 (14-36) U/L ALT 14 (4-34) U/L Alkaline Phosphatase 124 (38-126) U/L Troponin I (0.000-0.034) ng/mL NT-Pro-B Natriuret Pep 915 pg/mL Total Protein 6.5 (6.3-8.2) g/dL Albumin 4.1 (3.5-5.0) g/dL 06/23/23 Range/Units 01:08 WBC (3.8-10.6) k/uL RBC (3.80-5.40) m/uL Hgb (11.4-16.0) gm/dL Hct (34.0-46.0) % MCV (80.0-100.0) fL MCH (25.0-35.0) pg MCHC (31.0-37.0) g/dL RDW (11.5-15.5) % Plt Count (150-450) k/uL MPV Neutrophils % % Lymphocytes % % Monocytes % % Eosinophils % % Basophils % % Neutrophils # (1.3-7.7) k/uL Lymphocytes # (1.0-4.8) k/uL Monocytes # (0-1.0) k/uL Eosinophils # (0-0.7) k/uL Basophils # (0-0.2) k/uL PT (10.0-12.5) sec INR (<1.2) APTT (22.0-30.0) sec Sodium (137-145) mmol/L Potassium (3.5-5.1) mmol/L Chloride (98-107) mmol/L Carbon Dioxide (22-30) mmol/L Anion Gap mmol/L BUN (7-17) mg/dL Creatinine (0.52-1.04) mg/dL Est GFR (CKD-EPI)AfAm (>60 ml/min/1.73 sqM) Est GFR (CKD-EPI)NonAf (>60 ml/min/1.73 sqM) Glucose (74-99) mg/dL Calcium (8.4-10.2) mg/dL Magnesium (1.6-2.3) mg/dL Total Bilirubin (0.2-1.3) mg/dL AST (14-36) U/L ALT (4-34) U/L Alkaline Phosphatase (38-126) U/L Troponin I <0.012 (0.000-0.034) ng/mL NT-Pro-B Natriuret Pep pg/mL Total Protein (6.3-8.2) g/dL Albumin (3.5-5.0) g/dL Disposition Clinical Impression: Chronic back pain Disposition: HOME SELF-CARE Condition: Stable Is patient prescribed a controlled substance at d/c from ED?: No Referrals: Danna Serna [facility] [REFERRING] - 1-2 days
[2023-06-23 06:26] VITALS: BP 112/68; PULSE 74; RESP 18; TEMP 97.8
== END 2023-06-23 06:13 | disposition home or self-care (01) ==
LOC: EC 00:33
DX: G89.29 Other chronic pain (principal); M54.9 Dorsalgia, unspecified; E11.36 Type 2 diabetes mellitus with diabetic cataract; I10 Essential (primary) hypertension; E78.5 Hyperlipidemia, unspecified; I48.0 Paroxysmal atrial fibrillation; Z79.01 Long term (current) use of anticoagulants; Z79.4 Long term (current) use of insulin; Z79.51 Long term (current) use of inhaled steroids; Z79.84 Long term (current) use of oral hypoglycemic drugs; Z79.899 Other long term (current) drug therapy; Z88.5 Allergy status to narcotic agent; Z88.1 Allergy status to other antibiotic agents; Z88.8 Allergy status to other drugs, medicaments and biological substances; Z90.49 Acquired absence of other specified parts of digestive tract; Z95.0 Presence of cardiac pacemaker
CPT/HCPCS: 36415; 93005; 83880; 80053; 83735; 84484; 85025; 85610; 85730; 87636; 71046; 99285; 96374; 96375; J2405; J1170

== ENCOUNTER 2023-06-26 22:01 | Emergency (ER) | payer MEDICARE ==
[2023-06-26] MEDS ORDERED: SODIUM CHLORIDE 0.9% 1,000 ML IV STA (22:20)
[2023-06-26] MEDS ORDERED: HYDROmorphone 1 MG/ML 1 ML SYRINGE IVP STA (22:21)
[2023-06-26 22:39] LABS: Basophils % (A) 0 %; Eosinophils # (A) 0.2 k/uL (0-0.7); Eosinophils % (A) 3 %; HCT 34.3 % (34.0-46.0); HGB 11.4 gm/dL (11.4-16.0); Lymphocytes # (A) 0.9 k/uL (1.0-4.8); Lymphocytes % (A) 17 %; MCH 31.6 pg (25.0-35.0); MCHC 33.3 g/dL (31.0-37.0); MCV 94.9 fL (80.0-100.0); Mean Platelet Volume 8.8; Monocytes # (A) 0.3 k/uL (0-1.0); Monocytes % (A) 7 %; Neutrophils # (A) 3.5 k/uL (1.3-7.7); Neutrophils % (A) 69 %; Platelet Count 202 k/uL (150-450); RBC 3.61 m/uL (3.80-5.40); RDW 14.7 % (11.5-15.5); WBC 5.1 k/uL (3.8-10.6)
[2023-06-26 22:59] LABS: INR 0.9 (<1.2); Partial Thromboplastin Time 24.7 sec (22.0-30.0); Prothrombin Time 10.4 sec (10.0-12.5)
[2023-06-26 23:03] LABS: ALT 16 U/L (4-34); AST 22 U/L (14-36); African American GFR (CKD) 64 (>60 ml/min/1.73 sqM); Albumin 3.9 g/dL (3.5-5.0); Alkaline Phosphatase 118 U/L (38-126); Anion Gap 13 mmol/L; Blood Urea Nitrogen 25 mg/dL (7-17); Calcium 9.3 mg/dL (8.4-10.2); Carbon Dioxide 27 mmol/L (22-30); Chloride 98 mmol/L (98-107); Glucose 101 mg/dL (74-99); Magnesium 2.2 mg/dL (1.6-2.3); Non-African American GFR(CKD) 56 (>60 ml/min/1.73 sqM); Potassium 3.9 mmol/L (3.5-5.1); Sodium 138 mmol/L (137-145); Total Bilirubin 0.6 mg/dL (0.2-1.3); Total Protein 6.4 g/dL (6.3-8.2)
[2023-06-26 23:09] LABS: NT-Pro-B-Type Natriuretic Pept 3040 pg/mL
--- NOTE | 2023-06-26 23:51 | XR ---
EXAM: XR Chest, 2 Views CLINICAL HISTORY: ITS.REASON XR Reason: Chest Pain TECHNIQUE: Frontal and lateral views of the chest. COMPARISON: No relevant prior studies available. FINDINGS: Lungs: Unremarkable. No consolidation. Pleural space: Unremarkable. No pneumothorax. Heart: Cardiomegaly. Mediastinum: Unremarkable. Normal mediastinal contour. Bones/joints: Multilevel cement kyphoplasty. No acute fracture. Tubes, lines and devices: Dual lead pacemaker. IMPRESSION: No acute findings in the chest.
[2023-06-26] MEDS ORDERED: FUROSEMIDE 10 MG/ML 2 ML VIAL IV STA (23:58)
[2023-06-27 01:55] VITALS: TEMP 97.6
--- NOTE | 2023-06-27 02:12 | ED ---
General Adult HPI - General Chief complaint: Back Pain/Injury Stated complaint: Back pain Time Seen by Provider: 06/26/23 22:05 Source: patient, EMS, RN notes reviewed, old records reviewed Mode of arrival: EMS - History of Present Illness Initial comments: Patient is an 82-year-old female who was recently at this emergency Department complaining of chronic back pain presents again for chronic back pain. She states it sometimes involves her chest as well when the chronic back pain is significant. Is attempting to obtain a Dilaudid pump has been unable to find a physician one to place one. Presents with her chronic symptoms. States is similar to her chronic pain and dyspnea exacerbation. Worse with movement. Mid back with radiation around both ribs sides. No significant chest pain at this time. No significant shortness of breath. No abdominal pain, nausea, vomiting. Appears to be somewhat pain seeking at this time. No new symptoms. Presents for further evaluation at this time. - Related Data Home Medications Medication Instructions Recorded Confirmed amLODIPine [Norvasc] 5 mg PO DAILY 04/09/18 06/09/23 sitaGLIPtin [Januvia] 100 mg PO DAILY 04/09/18 06/09/23 Montelukast [Singulair] 10 mg PO DAILY 03/28/19 06/09/23 Atorvastatin [Lipitor] 40 mg PO DAILY 04/09/19 06/09/23 Metoprolol Succinate [Toprol XL] 50 mg PO DAILY 09/16/20 06/09/23 Apixaban [Eliquis] 5 mg PO BID 09/04/22 06/09/23 HYDROcodone/APAP 7.5-325MG [[place] 1 tab PO Q6H PRN 09/04/22 06/09/23 7.5-325] Insulin Glargine,Hum.rec.anlog 10 units SQ DAILY 09/04/22 06/09/23 [Lantus Solostar Pen] Tolterodine Tartrate [Tolterodine 4 mg PO DAILY 10/16/22 06/09/23 Tartrate ER] Albuterol Nebulized [Ventolin 2.5 mg INHALATION RT-QID 12/30/22 06/09/23 Nebulized] Budesonide [Pulmicort] 0.5 mg INHALATION RT-BID 12/30/22 06/09/23 Omeprazole 40 mg PO DAILY 12/30/22 06/09/23 Cyclobenzaprine [Flexeril] 10 mg PO BID PRN 02/17/23 06/09/23 glipiZIDE XL [Glucotrol XL] 10 mg PO DAILY 02/17/23 06/09/23 Gabapentin 600 mg PO BID 04/05/23 06/09/23 L.idocaine 5% Patch [Lidoderm 5% 1 patch TRANSDERM DAILY PRN 04/05/23 06/09/23 Patch] Nitroglycerin Sl Tabs [Nitrostat] 0.4 mg SL Q5M PRN 04/05/23 06/09/23 Previous Rx's Medication Instructions Recorded Furosemide [Lasix] 40 mg PO DAILY #30 tab 09/06/22 hydrALAZINE HCL [Apresoline] 25 mg PO BID #60 tab 09/06/22 Clopidogrel [Plavix] 75 mg PO DAILY 30 Days #30 tab 01/05/23 Losartan [Cozaar] 25 mg PO DAILY 30 Days #30 tab 01/05/23 Ascorbic Acid [Vitamin C] 1,000 mg PO DAILY #60 tab 01/15/23 Aspirin 325 mg PO DAILY #30 tab 01/15/23 tiZANidine [Zanaflex] 4 mg PO Q12H PRN #20 tab 04/23/23 oxyCODONE-APAP 10-325MG [Percocet 1 tab PO Q4HR PRN 3 Days #18 tab 06/16/23 10-325 mg] Allergies Allergy/AdvReac Type Severity Reaction Status Date / Time tetracycline Allergy Unknown Verified 06/26/23 22:11 fentanyl AdvReac "IN Verified 06/26/23 22:11 ANOTHER PLANET, DIDNT KNOW WHERE SHE WAS" morphine AdvReac Nausea & Verified 06/26/23 22:11 Vomiting Review of Systems ROS Statement: Those systems with pertinent positive or pertinent negative responses have been documented in the HPI. Review of Systems: CONST: Denies fever EYES: Denies blurry vision ENT: Denies nasal congestion C/V: Denies Chest pain RESP: Denies shortness of breath GI: Denies abdominal pain : Denies dysuria SKIN: Denies rash. MSK: Endorses Back pain NEURO: Denies headache ROS Other: All systems not noted in ROS Statement are negative. Past Medical History Past Medical History: Atrial Fibrillation, Chest Pain / Angina, Diabetes Mellitus, Hyperlipidemia, Hypertension, Osteoarthritis (OA), Pneumonia Additional Past Medical History / Comment(s): Paroxysmal Afib, POST OP INFECTION AFTER BACK SURGERY, CHRONIC BACK PAIN FROM T8 FX, CHRONIC PERIPHERAL LEG EDEMA,R humerus fracture. History of Any Multi-Drug Resistant Organisms: None Reported Past Surgical History: Back Surgery, Cholecystectomy, Heart Catheterization With Stent, Orthopedic Surgery, Pacemaker Additional Past Surgical History / Comment(s): 2015 LUMBAR SURGERY, FX NOSE RE PAIR, BILATERAL CATARACT SURGERY, R WRIST CARPAL TUNNEL SURGERY, kyphoplasty T8 ON 06/26/16 AND ONE BEFORE. Pacemaker placed 01/06/2023 Past Anesthesia/Blood Transfusion Reactions: No Reported Reaction Additional Past Anesthesia/Blood Transfusion Reaction / Comment(s): NEVER HAD A BLOOD TRANSFUSION. Date of Last Stent Placement:: 01/01/23 Type of Cardiac Device: Permanent Pacemaker Device Placement Date:: 12/30/22 Past Psychological History: No Psychological Hx Reported Smoking Status: Never smoker Past Alcohol Use History: None Reported Past Drug Use History: None Reported - Past Family History Father Family Medical History: Myocardial Infarction ([place]) Additional Family Medical History / Comment(s): FATHER AT AGE 52 OF AN [place] Mother Additional Family Medical History / Comment(s): MOTHER AT AGE 89 OF CELEBREX PROBLEM. General Exam - General Exam Comments Initial Comments: General: Appears in moderate distress. HEAD: Normal with no signs of head trauma. EYES: PERRLA, EOMI, conjunctiva normal, no discharge. ENT: Hearing grossly intact, normal oropharynx. RESPIRATORY: Clear breath sounds bilaterally. No wheezes, rales, or rhonchi. C/V: Regular rate and rhythm. S1 and S2 auscultated, mild bilateral lower extremity pitting edema, peripheral pulses 2+ and intact throughout ABD: Abd is soft, nontender, nondistended EXT: Normal range of motion, no obvious deformity. Mild midline tenderness palpation of the mid thoracic spine. SKIN: No rashes or lesions observed on exposed skin. NEURO: Alert and oriented 4. No focal deficits. Course Vital Signs 06/26/23 06/26/23 06/27/23 22:05 23:33 01:52 Temperature 98.0 F 97.6 F Pulse Rate 91 73 77 Respiratory 18 18 16 Rate Blood Pressure 106/66 106/96 138/77 O2 Sat by Pulse 97 98 96 Oximetry 06/27/23 03:07 Temperature Pulse Rate 70 Respiratory 18 Rate Blood Pressure 124/77 O2 Sat by Pulse 98 Oximetry Medical Decision Making - Medical Decision Making Was pt. sent in by a medical professional or institution (ROSMERY Fink, DIRECTOR OF ANALYTICAL DEVELOPMENT, urgent care, hospital, or [facility]...) When possible be specific @ -No Did you speak to anyone other than the patient for history (EMS, parent, family, police, friend...)? What history was obtained from this source @ -No Did you review nursing and triage notes (agree or disagree)? Why? @ -I reviewed and agree with nursing and triage notes Were old charts reviewed (outside hosp., previous admission, EMS record, old EKG, old radiological studies, urgent care reports/EKG's, [facility] records)? Report findings @ -Old charts reviewed Differential Diagnosis (chest pain, altered mental status, abdominal pain women, abdominal pain men, vaginal bleeding, weakness, fever, dyspnea, syncope, headache, dizziness, GI bleed, back pain, seizure, CVA, palpatations, mental health, musculoskeletal)? @ -Chronic back pain, chronic pain, ACS. This list is not all-inclusive. EKG interpreted by me (3pts min.). @ -As above X-rays interpreted by me (1pt min.). @ -Chest x-ray reveals no mediastinal widening, no acute cardiopulmonary process. CT interpreted by me (1pt min.). @ -None done U/S interpreted by me (1pt. min.). @ -None done What testing was considered but not performed or refused? (CT, X-rays, U/S, labs)? Why? @ -None What meds were considered but not given or refused? Why? @ -None Did you discuss the management of the patient with other professionals (professionals i.e. ROSMERY Fink, DIRECTOR OF ANALYTICAL DEVELOPMENT, lab, RT, psych nurse, social media sr strategy manager, living advisor, teacher, campus police officer, case mgr)? Give summary @ -No Was smoking cessation discussed for >3mins.? @ -No Was critical care preformed (if so, how long)? @ -No Were there social determinants of health that impacted care today? How? (Homelessness, low income, unemployed, alcoholism, drug addiction, transportation, low edu. Level, literacy, decrease access to med. care, retirement, rehab)? @ -No Was there de-escalation of care discussed even if they declined (Discuss DNR or withdrawal of care, Hospice)? DNR status @ -No What co-morbidities impacted this encounter? (DM, HTN, Smoking, COPD, CAD, Cancer, CVA, ARF, Chemo, Hep., AIDS, mental health diagnosis, sleep apnea, morbid obesity)? @ -None Was patient admitted / discharged? Hospital course, mention meds given and route, prescriptions, significant lab abnormalities, going to OR and other pertinent info. @ -Based on the patient's presentation and physical exam, presents with back pain complaint. EMS was concerned for possible chest pain however when he talked the patient is her chronic back pain that sometimes results in some ra diating pain along the ribs spaces. This is chronic for the patient with any changes. However due to his cardiac history we will obtain a cardiac rule out as well. She will receive IV Dilaudid for pain control. Patient agreement this plan. EKG within acceptable limits. No evidence of acute ischemia. Chest x-ray unremarkable with no mediastinal widening. Patient's labs also within except fo r limits including 2 negative troponins. Patient is sleeping comfortably at this time. I did the patient. She'll be discharged home at this time. She was in agreement this plan. Discussed she needs to follow up with a pain management doctor for further pain control. She was in agreement this plan. I instructed the patient to follow up with their PCP in the next 1-3 days. I explained that the patient should return to the emergency department if they experience any worsening symptoms. Strict return precautions were discussed with the patient. The patient expressed understanding of these instructions. I answered all questions that the patient had. The patient was discharged home in good condition with their prescriptions and follow up information. Undiagnosed new problem with uncertain prognosis? @ -No Drug Therapy requiring intensive monitoring for toxicity (Heparin, Nitro, Insulin, Cardizem)? @ -No Were any procedures done? @ -No Diagnosis/symptom? @ -Chronic back pain Acute, or Chronic, or Acute on Chronic? @ -Chronic Uncomplicated (without systemic symptoms) or Complicated (systemic symptoms)? @ -Uncomplicated Side effects of treatment? @ -No Exacerbation, Progression, or Severe Exacerbation? @ -No Poses a threat to life or bodily function? How? (Chest pain, [place], [place], pneumonia, PE, COPD, DKA, ARF, appy, cholecystitis, CVA, Diverticulitis, Homicidal, Suicidal, threat to staff... and all critical care pts) @ -No - Lab Data Result diagrams: 06/26/23 22:29 06/26/23 22:29 Lab Results 06/26/23 06/26/23 06/26/23 Range/Units 22:29 22:29 22:29 WBC 5.1 (3.8-10.6) k/uL RBC 3.61 L (3.80-5.40) m/uL Hgb 11.4 (11.4-16.0) gm/dL Hct 34.3 (34.0-46.0) % MCV 94.9 (80.0-100.0) fL MCH 31.6 (25.0-35.0) pg MCHC 33.3 (31.0-37.0) g/dL RDW 14.7 (11.5-15.5) % Plt Count 202 (150-450) k/uL MPV 8.8 Neutrophils % 69 % Lymphocytes % 17 % Monocytes % 7 % Eosinophils % 3 % Basophils % 0 % Neutrophils # 3.5 (1.3-7.7) k/uL Lymphocytes # 0.9 L (1.0-4.8) k/uL Monocytes # 0.3 (0-1.0) k/uL Eosinophils # 0.2 (0-0.7) k/uL Basophils # 0.0 (0-0.2) k/uL PT 10.4 (10.0-12.5) sec INR 0.9 (<1.2) APTT 24.7 (22.0-30.0) sec Sodium 138 (137-145) mmol/L Potassium 3.9 (3.5-5.1) mmol/L Chloride 98 (98-107) mmol/L Carbon Dioxide 27 (22-30) mmol/L Anion Gap 13 mmol/L BUN 25 H (7-17) mg/dL Creatinine 0.97 (0.52-1.04) mg/dL Est GFR (CKD-EPI)AfAm 64 (>60 ml/min/1.73 sqM) Est GFR (CKD-EPI)NonAf 56 (>60 ml/min/1.73 sqM) Glucose 101 H (74-99) mg/dL Calcium 9.3 (8.4-10.2) mg/dL Magnesium 2.2 (1.6-2.3) mg/dL Total Bilirubin 0.6 (0.2-1.3) mg/dL AST 22 (14-36) U/L ALT 16 (4-34) U/L Alkaline Phosphatase 118 (38-126) U/L Troponin I (0.000-0.034) ng/mL NT-Pro-B Natriuret Pep 3040 pg/mL Total Protein 6.4 (6.3-8.2) g/dL Albumin 3.9 (3.5-5.0) g/dL 06/26/23 06/27/23 Range/Units 22:29 01:32 WBC (3.8-10.6) k/uL RBC (3.80-5.40) m/uL Hgb (11.4-16.0) gm/dL Hct (34.0-46.0) % MCV (80.0-100.0) fL MCH (25.0-35.0) pg MCHC (31.0-37.0) g/dL RDW (11.5-15.5) % Plt Count (150-450) k/uL MPV Neutrophils % % Lymphocytes % % Monocytes % % Eosinophils % % Basophils % % Neutrophils # (1.3-7.7) k/uL Lymphocytes # (1.0-4.8) k/uL Monocytes # (0-1.0) k/uL Eosinophils # (0-0.7) k/uL Basophils # (0-0.2) k/uL PT (10.0-12.5) sec INR (<1.2) APTT (22.0-30.0) sec Sodium (137-145) mmol/L Potassium (3.5-5.1) mmol/L Chloride (98-107) mmol/L Carbon Dioxide (22-30) mmol/L Anion Gap mmol/L BUN (7-17) mg/dL Creatinine (0.52-1.04) mg/dL Est GFR (CKD-EPI)AfAm (>60 ml/min/1.73 sqM) Est GFR (CKD-EPI)NonAf (>60 ml/min/1.73 sqM) Glucose (74-99) mg/dL Calcium (8.4-10.2) mg/dL Magnesium (1.6-2.3) mg/dL Total Bilirubin (0.2-1.3) mg/dL AST (14-36) U/L ALT (4-34) U/L Alkaline Phosphatase (38-126) U/L Troponin I <0.012 <0.012 (0.000-0.034) ng/mL NT-Pro-B Natriuret Pep pg/mL Total Protein (6.3-8.2) g/dL Albumin (3.5-5.0) g/dL - EKG Data -: EKG Interpreted by Me EKG Comments: 12-lead Electrocardiogram Interpretation Note EKG was reviewed and interpreted by myself. 12-lead ECG performed at 2244 is interpreted by me as revealing atrial fibrillation at a rate of 75 beats per minute. [place] is normal. QRS duration is 80 ms, QTc is 1420 ms. Paced rhythm occasionally present. He sees present as well.. There were no ST or T wave abnormalities to suggest myocardial ischemia or injury. R wave progression across the precordium was satisfactory. By my interpretation this EKG is non- diagnostic for acute ischemia. Disposition Clinical Impression: Back pain, Chronic pain Disposition: ADMITTED IP TO THIS HOSP Condition: Good Instructions (If sedation given, give patient instructions): Chronic Pain (ED) Is patient prescribed a controlled substance at d/c from ED?: No Referrals: Rox Parmar DO [Primary Care Provider] - 1-2 days Time of Disposition: 01:50
[2023-06-27] MEDS ORDERED: HYDROmorphone 1 MG/ML 1 ML SYRINGE IVP STA (02:29)
[2023-06-27 03:24] VITALS: BP 124/77; PULSE 70; RESP 18
== END 2023-06-27 03:08 | disposition other institution (70) ==
LOC: EC 22:01
DX: G89.29 Other chronic pain (principal); M54.9 Dorsalgia, unspecified; I10 Essential (primary) hypertension; E11.9 Type 2 diabetes mellitus without complications; E78.5 Hyperlipidemia, unspecified; M19.90 Unspecified osteoarthritis, unspecified site; Z79.01 Long term (current) use of anticoagulants; Z79.4 Long term (current) use of insulin; Z79.51 Long term (current) use of inhaled steroids; Z79.84 Long term (current) use of oral hypoglycemic drugs; Z79.899 Other long term (current) drug therapy; Z88.5 Allergy status to narcotic agent; Z88.8 Allergy status to other drugs, medicaments and biological substances; Z90.49 Acquired absence of other specified parts of digestive tract; Z95.0 Presence of cardiac pacemaker
CPT/HCPCS: 36415 ×2; 93005; 83880; 80053; 83735; 84484 ×2; 85025; 85610; 85730; 71046; 99285; 96374; 96361; 96375; 96376; J1940; J1170 ×2